=== PATIENT | male | born 1945 | race Caucasian/White ===

== ENCOUNTER 2016-05-24 17:12 | Emergency (ER) | payer MEDICARE, MEDICAID ==
[~2016-05-24] VITALS: Ht 193 cm; Wt 131.5 kg
[~2016-05-24 17:12] MED LIST: ACET325T38 PO; ALDACTONE25 MG PO; ALPR1T PO; ALPR1TAB7 PO; AMLO10TA2 PO; APIX5TAB PO; ASP81CT PO; ASPI-875 PO; ATOR40TA70 PO; ATR20T PO; BUSP15TA60 PO; CHOL20003 PO; CITA10TA PO; CITA10TA7 PO; CLOP75TA PO; CLOP75TA28 PO; CTLP20T PO; DOXY100C2 PO; ENLP2.5T PO; FURO20TA4 PO; GABA800T2 PO; GBPN300C PO; HYDR-2890 PO; HYDR-3812 PO; HYDR1TAB86 PO; INSU100I14 SC; INSU100I14 SQ; INSU100I16 SQ; INSU100I29 SC; LEVE1U SQ; LEVO25TA5 PO; LEVO750T39 PO; LINA5TAB PO; LISI2.5T PO; LVT.025T PO; MECL-106 PO; MELA1TAB10 PO; METF-380 PO; METO-333 PO; NTR.4SL SL; RANI150T11 PO; RIVA1PAT TD; RIVA1PAT12 TD; SERT25TA PO; SULF1TAB38 PO; TERB250T10 PO; cozaar; lasix
[2016-05-24] MEDS ORDERED: inSUlin (REGULAR) HUMAN 1 UNIT/0.01 ML (CHARGE PER UNIT) IV ONE (17:30)
[2016-05-24] MEDS ORDERED: NS IV 500 ML 500 ML IV SCH (17:30)
--- NOTE | 2016-05-24 17:34 | ED General ---
General Stated Complaint: ELEV GLUCOSE Source of Information: Patient Exam Limitations: No Limitations History of Present Illness Time Seen by Provider: 17:31 Initial Comments To ER per EMS from [facility]. Reports of hyperglycemia with blood sugar of around 500 today at the assisted. No recent illness. Primary care is Dr. Pham in [place]. History of left-sided hemiplegia following stroke, stage III chronic kidney disease, ischemic cardiomyopathy with remote CABG, COPD, DO NOT RESUSCITATE status. Patient denies any complaints stating that he feels normal though he has had nausea and diarrhea for the past day. He is on Levemir, tardjenta, novolog sliding scale Timing/Duration: 4-6 Hours Severity: Mild Associated Systoms: Denies Symptoms Nausea/Vomiting Allergies and Home Medications Allergies Coded Allergies: morphine (Verified Adverse Reaction, Intermediate, psychosis, 09/12/12) Home Medications Acetaminophen 325 Mg Tablet 650 MG PO Q4H PRN PRN HEADACHE (Reported) Alprazolam 1 Mg Tablet 1 MG PO TID (Reported) Apixaban 5 Mg Tablet 30Days 5 MG PO BID Prescribed by: OLENA OLIVEIRA on 04/29/15 1315 Aspirin 81 Mg Tablet.dr 81 MG PO DAILY (Reported) Atorvastatin Calcium 40 Mg Tablet 40 MG PO HS (Reported) Buspirone HCl 15 Mg Tablet 15 MG PO HS (Reported) Cholecalciferol (Vitamin D3) 2,000 Unit Capsule 2,000 UNIT PO DAILY (Reported) Citalopram Hydrobromide 10 Mg Tablet 15 MG PO DAILY (Reported) TAKES 1 & 1/2 (10MG) TABLET Gabapentin 800 Mg Tablet 800 MG PO TID (Reported) Hydrocodone/Acetaminophen 1 Each Tablet 1 TAB PO HS (Reported) Hydrocodone/Acetaminophen 1 Each Tablet 1 TAB PO Q8H PRN PRN PAIN (Reported) Insulin Aspart 300 Units/3 Ml Solution SC QID (Reported) INJECT PER SLIDING SCALE: 60 -150 = 0 UNITS 151-200 = 4 UNITS 201-250 = 6 UNITS 251-300 = 8 UNITS 301-350 =10 UNITS 351-400 =12 UNITS >400 CALL Levofloxacin 750 Mg Tablet 7Days 750 MG PO DAILY@1100 Prescribed by: OLENA OLIVEIRA on 04/29/15 1315 Levothyroxine Sodium 25 Mcg Tablet 25 MCG PO DAILY (Reported) Linagliptin 5 Mg Tablet 5 MG PO HS (Reported) Melatonin/Pyridoxine 1 Each Tablet 3 MG PO HS (Reported) Metoprolol Tartrate 25 Mg Tablet 30Days 25 MG PO BID Prescribed by: OLENA OLIVEIRA on 04/29/15 1315 Ranitidine HCl 150 Mg Tablet 150 MG PO BID (Reported) Rivastigmine 1 Each Patch.td24 9.5 MG TD DAILY (Reported) Constitutional: see HPI EENTM: see HPI Respiratory: no symptoms reported Cardiovascular: no symptoms reported Gastrointestinal: No abdominal pain, diarrhea nausea Genitourinary: no symptoms reported Musculoskeletal: no symptoms reported Skin: no symptoms reported Psychiatric/Neurological: No Symptoms Reported Hematologic/Lymphatic: No Symptoms Reported Past Dnmeboe-Kceyuc-Okeddp Hx Patient Social History Former Smoker/When Quit: Mar 20, 2012 Immunizations Up To Date Date of Pneumonia Vaccine: Mar 15, 2012 Date of Influenza Vaccine: Mar 09, 2015 Surgeries HX Surgeries: Yes ( carotid endartetectomy) Respiratory Hx Respiratory Disorders: Yes Respiratory Disorders: Pneumonia, Sleep Apnea Cardiovascular Hx Cardiac Disorders: Yes Neurological Hx Neurological Disorders: Yes Reproductive System Hx Reproductive Disorders: No (unknown) Sexually Transmitted Disease: No (unknown) HIV/AIDS: No Genitourinary Hx Genitourinary Disorders: Yes Genitourinary Disorders: Kidney Infection, Kidney Stones, Renal Failure Gastrointestinal Hx Gastrointestinal Disorders: Yes Gastrointestinal Disorders: Gastroesophageal Reflux, Gastrointestinal Bleed, Hiatal Hernia, Ulcer Musculoskeletal Hx Musculoskeletal Disorders: Yes (CHRONIC LEFT SHOULDER PAIN) Musculoskeletal Disorders: Arthritis Endocrine Hx Endocrine Disorders: Yes Endocrine Disorders: Diabetes, Insulin dep, Hypothyroidsim HEENT HX ENT Disorders: No Cancer Hx Cancer: No Psychosocial Hx Psychiatric Problems: Yes Behavioral Health Disorders: Sleep Difficulties, Anxiety, Depression Integumentary HX Skin/Integumentary Disorder: Yes (CELLULITIS LEFT FOOT) Blood Transfusions Hx Blood Disorders: No Adverse Reaction to a Blood Tr: No Family Medical History Significant Family History: Heart Disease, Diabetes Family Medial History: Cardiovascular disease 19 MOTHER Completed stroke 19 FATHER 19 MOTHER FH: emphysema Physical Exam Vital Signs Vital Sign - Last 12Hours 05/24/16 17:12 Temp 98.2 Pulse 82 Resp 18 B/P 147/89 Capillary Refill : General Appearance: No Apparent Distress WD/WN Eyes: Bilateral Eye Normal Inspection, Bilateral Eye PERRL HEENT: PERRL/EOMI TMs Normal Neck: Full Range of Motion Supple Respiratory: Lungs Clear Normal Breath Sounds No Accessory Muscle Use No Respiratory Distress Cardiovascular: Regular Rate, Rhythm Normal Peripheral Pulses Gastrointestinal: Non Tender Soft Extremity: Normal Capillary Refill No Calf Tenderness Neurologic/Psychiatric: Alert Oriented x3 Other (left-sided hemiparesis) Skin: Normal Color Warm/Dry Progress/Results/Core Measures Results/Orders Lab Results Laboratory Tests Test 05/24/16 17:23 05/24/16 17:29 05/24/16 18:29 05/24/16 18:38 Range/Units Alanine Aminotransferase (ALT/SGPT) 40 0-55 U/L Albumin 3.5 3.2-4.5 G/DL Alkaline Phosphatase 126 40-136 U/L Anion Gap 8 5-14 MMOL/L Aspartate Amino Transf (AST/SGOT) 24 5-34 U/L BUN/Creatinine Ratio 17 Basophils # (Auto) 0.0 0.0-0.1 10^3/uL Basophils (%) (Auto) 0 0-10 % Blood Urea Nitrogen 32 H 7-18 MG/DL Calcium Level 8.3 L 8.5-10.1 MG/DL Carbon Dioxide Level 25 21-32 MMOL/L Chloride Level 102 98-107 MMOL/L Creatinine 1.91 H 0.60-1.30 MG/DL Eosinophils # (Auto) 0.1 0.0-0.3 10^3/uL Eosinophils (%) (Auto) 2 0-10 % Estimat Glomerular Filtration Rate 35 Glucose Level 509 *H 70-105 MG/DL Hematocrit 43 40-54 % Hemoglobin 14.4 13.3-17.7 G/DL Lymphocytes # (Auto) 3.6 1.0-4.0 X 10^3 Lymphocytes (%) (Auto) 41 12-44 % Mean Corpuscular Hemoglobin 30 25-34 PG Mean Corpuscular Hemoglobin Concent 33 32-36 G/DL Mean Corpuscular Volume 90 80-99 FL Mean Platelet Volume 11.0 H 7.4-10.4 FL Monocytes # (Auto) 0.9 0.0-1.0 X 10^3 Monocytes (%) (Auto) 10 0-12 % Neutrophils # (Auto) 4.2 1.8-7.8 X 10^3 Neutrophils (%) (Auto) 47 42-75 % Platelet Count 193 130-400 10^3/uL Potassium Level 5.0 3.6-5.0 MMOL/L Red Blood Count 4.78 4.35-5.85 10^6/uL Red Cell Distribution Width 13.4 10.0-14.5 % Sodium Level 135 135-145 MMOL/L Total Bilirubin 0.3 0.1-1.0 MG/DL Total Protein 7.0 6.4-8.2 G/DL White Blood Count 8.9 4.3-11.0 10^3/uL Glucometer 414 *H 353 H 70-110 MG/DL Urine Bacteria NEGATIVE /HPF Urine Bilirubin NEGATIVE NEGATIVE Urine Casts NONE /LPF Urine Clarity SLIGHTLY CLOUDY Urine Color YELLOW Urine Crystals NONE /LPF Urine Culture Indicated NO Urine Glucose (UA) 4+ H NEGATIVE Urine Ketones NEGATIVE NEGATIVE Urine Leukocyte Esterase NEGATIVE NEGATIVE Urine Mucus NEGATIVE /LPF Urine Nitrite NEGATIVE NEGATIVE Urine Protein 1+ H NEGATIVE Urine RBC NONE /HPF Urine RBC (Auto) NEGATIVE NEGATIVE Urine Specific [place] 1.020 1.016-1.022 Urine Urobilinogen NORMAL NORMAL MG/DL Urine WBC RARE /HPF Urine pH 6 5-9 My Orders Orders-RANDEE EVANS APRN Cbc With Automated Diff (05/24/16 17:30) Comprehensive Metabolic Panel (05/24/16 17:30) Ua Culture If Indicated (05/24/16 17:30) Chest 1 View, Ap/Pa Only (05/24/16 17:30) Saline Lock/Iv-Start (05/24/16 17:30) Accucheck Stat ONCE (05/24/16 17:30) Accucheck Stat ONCE (05/24/16 17:30) Ns Iv 500 Ml (Sodium Chloride 0.9%) (05/24/16 17:30) Insulin (Regular) Human (Humulin R (Per (05/24/16 17:30) Furosemide Injection (Lasix Injection) (05/24/16 18:30) Insulin (Regular) Human (Humulin R (Per (05/24/16 19:00) Thyroid Stimulating Hormone (05/24/16 19:01) Ekg Tracing (05/24/16 19:01) Ct Head Wo (05/24/16 19:01) Hemoglobin A1c (05/24/16 19:09) Medications Given in ED Current Medications Medications Dose Ordered Sig/Martita Route Start Time Stop Time Status Last Admin Dose Admin Furosemide 40 mg ONCE ONCE IVP 05/24/16 18:30 05/24/16 18:31 DC 05/24/16 18:35 40 MG Insulin Human Regular 6 unit ONCE ONCE SC 05/24/16 19:00 05/24/16 19:01 DC 05/24/16 18:58 6 UNIT Insulin Human Regular 8 unit ONCE ONCE IV 05/24/16 17:30 05/24/16 17:31 DC 05/24/16 17:42 8 UNIT Vital Signs/I&O Vital Sign - Last 12Hours 05/24/16 17:12 Temp 98.2 Pulse 82 Resp 18 B/P 147/89 Diagnostic Imaging Diagonstic Imaging: Xray Plain Films/CT/US/NM/MRI: chest Comments NAME: RC MURO [facility] REC#: [id number] PT STATUS: REG ER : 1945 PHYSICIAN: RANDEE EVANS APRN ADMIT DATE: 05/24/16/ER Signed Date of Exam:05/24/16 CHEST 1 VIEW, AP/PA ONLY EXAMINATION: Portable chest compared to prior study from April 28, 2015 INDICATION: Elevated blood sugar. FINDINGS: When compared to the prior examination, there has not been evidence of interval change. The patient is status post previous sternotomy and bypass grafting. Enlargement of the cardiac silhouette is present. There has been a slight interval increase in prominence of pulmonary interstitial markings when compared to the previous exam. There is no alveolar consolidation. There is no effusion. There is no pneumothorax. IMPRESSION: 1. Enlarged cardiac silhouette with slight interval increase in prominence of the pulmonary interstitial markings which may reflect some mild interstitial edema. Dictated by: Dictated on workstation # [id number] Dict: 05/24/16 1800 Trans: 05/24/161811 GURVINDER [id number] Interpreted by: DYANA MESSINA MD Electronically signed by: DYANA MESSINA MD 05/24/161813 Departure Communication Progress Notes [facility] call to inform that patient was supposed to go to [facility] for SBH screening as he has reported suicidal comments and wanting to end his life. I spoke with [facility] at [facility] and they report that patient would still need screening to see if he is appropriate for placement in the SBH unit. However before doing that I discussed this with the patient. He is alert and oriented person place and time. He states that he has been depressed lately secondary to his living in [place] for the past 3 months. He denies any suicidal comments or thoughts of self-harm or dying. He does not want to go to [facility] behavioral health unit at [place]. 1919- I spoke with Tiki Paredes from [facility] unit. They do not have any bed availability for the patient stella and will have the patient screened at the assisted within the next few days Impression Impression: Primary Impression: Hyperglycemia Additional Impression: Chronic kidney disease Qualified Code: N18.3 - Chronic kidney disease, stage 3 (moderate) Disposition: 03 XFER SNF Condition: Improved Decision to Admit Reason: Admit from ER (General) Departure-Patient Inst. Decision time for Depature: 18:11 Referrals: LIU PHAM MD (PCP/Family) Primary Care Physician Patient Instructions: Diabetes Type 2 (DC) Add. Discharge Instructions: 1. In regards to his behaviors you may call [facility] to have them come to the assisted to do a screening to determine whether or not inpatient placement at [facility] at [place] would be helpful 2. Recheck his blood sugar at 9 p.m. stella and give Novolog insulin according to his sliding scale RANDEE EVANS APRN May 24, 2016 17:34
[2016-05-24 17:36] LABS: BASOPHILS % (AUTO) 0 % (0-10); EOSINOPHILS # (AUTO) 0.1 10^3/uL (0.0-0.3); EOSINOPHILS % (AUTO) 2 % (0-10); LYMPHOCYTES # (AUTO) 3.6 X 10^3 (1.0-4.0); LYMPHOCYTES % (AUTO) 41 % (12-44); MEAN CORPUSCULAR HEMOGLOBIN 30 PG (25-34); MEAN CORPUSCULAR HGB CONC 33 G/DL (32-36); MEAN CORPUSCULAR VOLUME 90 FL (80-99); MONOCYTES # (AUTO) 0.9 X 10^3 (0.0-1.0); MONOCYTES % (AUTO) 10 % (0-12); NEUTROPHILS # (AUTO) 4.2 X 10^3 (1.8-7.8); NEUTROPHILS % (AUTO) 47 % (42-75); PLATELET COUNT 193 10^3/uL (130-400); RED BLOOD COUNT 4.78 10^6/uL (4.35-5.85); RED CELL DISTRIBUTION WIDTH 13.4 % (10.0-14.5); WHITE BLOOD COUNT 8.9 10^3/uL (4.3-11.0)
[2016-05-24 17:49] LABS: ALBUMIN 3.5 G/DL (3.2-4.5); BILIRUBIN,TOTAL 0.3 MG/DL (0.1-1.0); CALCIUM 8.3 MG/DL (8.5-10.1); CREATININE SERUM 1.91 MG/DL (0.60-1.30)
--- NOTE | 2016-05-24 18:12 | Diagnostic Imaging Report ---
EXAMINATION: Portable chest compared to prior study from April 28, 2015 INDICATION: Elevated blood sugar. FINDINGS: When compared to the prior examination, there has not been evidence of interval change. The patient is status post previous sternotomy and bypass grafting. Enlargement of the cardiac silhouette is present. There has been a slight interval increase in prominence of pulmonary interstitial markings when compared to the previous exam. There is no alveolar consolidation. There is no effusion. There is no pneumothorax. IMPRESSION: 1. Enlarged cardiac silhouette with slight interval increase in prominence of the pulmonary interstitial markings which may reflect some mild interstitial edema. Dictated by: Dictated on workstation # [id number]
[2016-05-24] MEDS ORDERED: FUROSEMIDE 40 MG/4 ML INJ (LASIX) IVP ONE (18:30)
[2016-05-24 18:37] LABS: BILIRUBIN,URINE NEGATIVE (NEGATIVE); KETONES,URINE NEGATIVE (NEGATIVE); LEUKOCYTE ESTERASE ,URINE NEGATIVE (NEGATIVE); NITRITE,URINE NEGATIVE (NEGATIVE); PH,URINE 6 (5-9); PROTEIN,URINE 1+ (NEGATIVE); UROBILINOGEN,URINE NORMAL (NORMAL)
[2016-05-24 18:52] LABS: WBC,URINE RARE /HPF
[2016-05-24] MEDS ORDERED: inSUlin (REGULAR) HUMAN 1 UNIT/0.01 ML (CHARGE PER UNIT) SC ONE (19:00)
--- NOTE | 2016-05-24 19:30 | Diagnostic Imaging Report ---
PROCEDURE: CT head without contrast. TECHNIQUE: Multiple contiguous axial images were obtained through the brain without the use of intravenous contrast. INDICATION: Stroke like symptoms. Comparison is made with the prior study from September 12, 2012. FINDINGS: Patient's previous encephalomalacia within the right MCA territory demonstrates no evidence of appreciable interval change. There is associated volume loss and ex vacuo dilatation of the right lateral ventricle. No new region of abnormal intracranial hypodensity is evident. There is no hemorrhage. There is no evidence of mass effect. Basilar cisterns appear patent. The posterior fossa is unremarkable. The mastoids appear clear. The paranasal sinuses appear clear. Orbital contents unremarkable. No calvarial abnormality is demonstrated. IMPRESSION: 1. Previous large right MCA territory infarct with resultant encephalomalacia and volume loss. This is not appreciably changed from the previous exam. No new regions of abnormal loss of benito-white differentiation or hypodensity are demonstrated to suggest acute ischemia by CT. If continued clinical concern, further evaluation could be performed with MRI. 2. No evidence of intracranial hemorrhage, mass effect or hydrocephalus. Dictated by: Dictated on workstation # [id number]
[2016-05-24 20:33] VITALS: BP 129/83
== END 2016-05-24 20:33 ==
LOC: EDUNIT# 17:12 → ER 17:14
DX: E11.65 Type 2 diabetes mellitus with hyperglycemia (principal); I12.9 Hypertensive chronic kidney disease with stage 1 through stage 4 chronic kidney disease, or unspecified chronic kidney disease; N18.3 Chronic kidney disease, stage 3 (moderate); I25.5 Ischemic cardiomyopathy; J44.9 Chronic obstructive pulmonary disease, unspecified; I69.954 Hemiplegia and hemiparesis following unspecified cerebrovascular disease affecting left non-dominant side; F32.9 Major depressive disorder, single episode, unspecified; Z79.84 Long term (current) use of oral hypoglycemic drugs; Z79.4 Long term (current) use of insulin; Z79.899 Other long term (current) drug therapy; Z95.1 Presence of aortocoronary bypass graft
CPT/HCPCS: 36415; 70450; 71010; 80053; 81000; 82962; 83036; 84443; 85025; 96361; 96374; 96375

== ENCOUNTER → 2017-03-14 | Outpatient (CLI) | payer MEDICARE, MEDICAID | LOC: LABNPT 10:04 | PROVIDERS: ATTEND Family Medicine | DX: E03.9 Hypothyroidism, unspecified (principal) | CPT/HCPCS: 84443 ==

== ENCOUNTER → 2018-02-13 | Outpatient (CLI) | payer MEDICARE, MEDICAID ==
[~2018-02-13] MED LIST changes: +ACHD5005 PO; -AMLO10TA2 PO; +AMLO10TA6 PO; -HYDR-3812 PO; -TERB250T10 PO; +TERB250T16 PO
== END ==
LOC: WOUNDCARE 08:14
PROVIDERS: ATTEND Nurse Practitioner
DX: I87.2 Venous insufficiency (chronic) (peripheral) (principal); E11.622 Type 2 diabetes mellitus with other skin ulcer; L97.322 Non-pressure chronic ulcer of left ankle with fat layer exposed; L97.222 Non-pressure chronic ulcer of left calf with fat layer exposed
CPT/HCPCS: 99214

== ENCOUNTER → 2018-02-20 | Outpatient (CLI) | payer MEDICARE, MEDICAID | LOC: WOUNDCARE 09:02 | PROVIDERS: ATTEND Nurse Practitioner | DX: I87.2 Venous insufficiency (chronic) (peripheral) (principal); E11.622 Type 2 diabetes mellitus with other skin ulcer; L97.322 Non-pressure chronic ulcer of left ankle with fat layer exposed; L97.222 Non-pressure chronic ulcer of left calf with fat layer exposed; I70.242 Atherosclerosis of native arteries of left leg with ulceration of calf | CPT/HCPCS: 99213 ==

== ENCOUNTER → 2018-02-20 | Outpatient (CLI) | payer MEDICARE, MEDICAID | LOC: LAB 09:50 | PROVIDERS: ATTEND Nurse Practitioner | DX: I87.2 Venous insufficiency (chronic) (peripheral) (principal); E11.622 Type 2 diabetes mellitus with other skin ulcer; L97.322 Non-pressure chronic ulcer of left ankle with fat layer exposed; L97.222 Non-pressure chronic ulcer of left calf with fat layer exposed; I70.242 Atherosclerosis of native arteries of left leg with ulceration of calf ==

== ENCOUNTER → 2018-02-27 | Outpatient (CLI) | payer MEDICARE, MEDICAID ==
[~2018-02-27] MED LIST changes: +ASPI-983 PO; +ATOR20TA49 PO; +BUSP5TAB59 PO; +DIVA125C10 PO; +ECON15CR TP; +GABA-488 PO; +GUAI100L36 PO; +IBUP-1780 PO; +INSU100V16 SQ; +INSU100V5 SQ; +LACT20SO2 PO; +LEVO150T6 PO; +LOPE-134 PO; +LORA10TA7 PO; +MELA3TAB PO; +MULT-35 PO; +VNL75T PO
== END ==
LOC: WOUNDCARE 09:15
PROVIDERS: ATTEND Surgery
DX: E11.622 Type 2 diabetes mellitus with other skin ulcer (principal); I70.243 Atherosclerosis of native arteries of left leg with ulceration of ankle; L97.322 Non-pressure chronic ulcer of left ankle with fat layer exposed; L97.222 Non-pressure chronic ulcer of left calf with fat layer exposed; I87.2 Venous insufficiency (chronic) (peripheral)
CPT/HCPCS: 99213

== ENCOUNTER 2018-03-05 07:31 | Day surgery (SDC) | payer MEDICARE, MEDICAID ==
[~2018-03-05] VITALS: Ht 193 cm; Wt 136.1 kg
[2018-03-05] VITALS (16 sets, daily range): BP systolic 111–185; BP diastolic 59–109
[~2018-03-05 07:31] MED LIST changes: -ASPI-983 PO; -ATOR20TA49 PO; -BUSP5TAB59 PO; -DIVA125C10 PO; -ECON15CR TP; -GABA-488 PO; -GUAI100L36 PO; -IBUP-1780 PO; -INSU100V16 SQ; -INSU100V5 SQ; -LACT20SO2 PO; -LEVO150T6 PO; -LOPE-134 PO; -LORA10TA7 PO; -MELA3TAB PO; -MULT-35 PO; -VNL75T PO
--- OUTSIDE RECORDS SUMMARY | 2018-03-05 07:34 | XMS REPORT ---
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 208064619 Problem Vascular dementia, uncomplicated 290.40 Active 99624485 Problem Unspecified episodic mood disorder 296.90 Active 207659159 Problem Vascular dementia with behavioral disturbance F01.51 Active 409980945184917 Problem Major depressive disorder, recurrent, unspecified F33.9 Active 90039197 Problem Diabetes mellitus without mention of complication, type II or unspecified type, not stated as uncontrolled 250.00 Active 803631504 Problem Other and unspecified hyperlipidemia 272.4 Active 43369806 Problem Unspecified mood [affective] disorder F39 Active 28675901 Problem 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 Active 04581961 Problem Diarrhea 787.91 Active 60503103 Problem Nausea with vomiting 787.01 Active 68375488 Problem Unspecified disorder of skin and subcutaneous tissue 709.9 Active 72794095 Problem Unspecified local infection of skin and subcutaneous tissue 686.9 Active 622498987 Problem Pain in joint, lower leg 719.46 Active 771979635 Problem Unspecified hypotension 458.9 Active 92525944 Problem Pain in joint, shoulder region 719.41 Active 193599703 Problem 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 Active 920662263 ALLERGIES No Information ENCOUNTERS Encounter Location Date Diagnosis [facility] [id number] [address] Feb, [facility] [address] [facility] [id number] [address] Feb, [facility] [address] [address] [address] Dec, Major depressive disorder, recurrent, unspecified F33.9 [facility] [id number] [place] [address] 489665- 8742 Oct, Unspecified mood [affective] disorder F39 [facility] [id number] [place] [address] 646451- 8391 September, Major depressive disorder, recurrent, unspecified F33.9 [facility] [place] [id number] [place] [address] [id number] May, [facility] [id number] [place] [address] 42998- 9870 May, Major depressive disorder, recurrent, unspecified F33.9 [facility] [id number] [place] [address] 377442- 7044 Feb, Major depressive disorder, recurrent, unspecified F33.9 [facility] [id number] [place] [address] 85966- 3323 Jan, Major depressive disorder, recurrent, unspecified F33.9 [facility] [id number] [place] [address] 58340- 7605 Jan, Major depressive disorder, recurrent, unspecified F33.9 [facility] [id number] [place] [address] 07730- 8966 Jan, Major depressive disorder, recurrent, unspecified F33.9 [facility] [address] [address] 120[address] Dec, Major depressive disorder, recurrent, unspecified F33.9 [facility] [id number] [place] [address] 825666- 1065 Nov, Major depressive disorder, recurrent, unspecified F33.9 [facility] [address] [address] [address] Nov, 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 [facility] [id number] [address] 9206 08 Oct, 2016 Unspecified mood [affective] disorder F39 ; Major depressive disorder, recurrent, unspecified F33.9 and Vascular dementia with behavioral disturbance F01.51 [facility] [id number] [address] 480[address] 24 May, 2016 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 [facility] [id number] [place] [address] 02606- 1190 14 Aug, 2014 [facility] [id number] [place] [address] 05266- 0817 13 Aug, 2014 [facility] [id number] [place] [address] 32962- 1504 15 Feb, 2013 [facility] [id number] [place] [address] 79207- 4132 Feb, [facility] [id number] [place] [address] 68806- 9316 Feb, [facility] [id number] [place] [address] 34896- 8412 Feb, [facility] [id number] [place] [address] 91451- 9165 23 Jan, 2012 [facility] [address] [address]- 5347 20 Jan, 2012 [facility] [address] [address]- 7557 18 Sep, 2012 [facility] [address] [address]- 4945 10 Sep, 2012 [facility] [id number] [place] [address] 80345- 9114 09 Sep, 2012 [facility] [address] [address]- 2837 06 Sep, 2012 [facility] [id number] [place] [address], [place] [address]- 78[address] 06 Jan, 2013 [facility] [address] [id number] [place] [address]- 8839 05 Jan, 2013 [facility] [place] [facility] [address] [id number] [place] [address]- 0120 Jan, [facility] [place] [facility] [address] [id number] [place] [address]- 3844 Dec, [facility] [place] [facility] [address] [id number] [place] [address]- 2178 Nov, [facility] [place] [facility] [address] [id number] [place] [address]- 5690 Nov, [facility] [place] [facility] [address] [id number] [place] [address]- 9302 Nov, [facility] [address] [id number] [place] [address]- 1866 Nov, [facility] [place] [facility] [address] [id number] [place] [address]- 2035 Nov, [facility] [place] [facility] [address] [id number] [place] [address]- 7435 Oct, [facility] [place] [facility] [address] [id number] [place] [address]- 2283 Oct, [facility] [place] [facility] [address] [id number] [place] [address]- 2939 Oct, [facility] [place] [facility] [address] [id number] [place] [address]- 0955 Oct, [facility] [place] [facility] [address] [id number] [place] [address]- 5298 Oct, [facility] [place] [facility] [address] [id number] [place] [address]- 1421 September, [facility] [place] [facility] [address] [id number] [place] [address]- 6975 September, [facility] [place] [facility] [address] [id number] [place] [address]- 3194 30 Aug, 2012 [facility] [address] [id number] [place] [address]- 0192 15 Aug, 2012 [facility] [place] [facility] [address] [id number] [place] [address]- 6759 02 Aug, 2012 [facility] [address] [id number] [place] [address]- 7648 28 Jul, 2012 [facility] [address] [id number] [place] [address]- 1650 25 Jul, 2012 [facility] [place] [facility] [address] [id number] [place] [address]- 3077 22 Jul, 2012 [facility] [address] [id number] [place] [address]- 4728 Jul, [facility] [address] [id number] [place] [address]- 7273 20 Jul, 2012 [facility] [address] [id number] [place] [address]- 4773 19 Jul, 2012 [facility] [address] [id number] [place] [address]- 8785 19 Jul, 2012 [facility] [address] [id number] [place] [address]- 2706 18 Jul, 2012 [facility] [place] [facility] [address] [id number] [place] [address]- 5917 14 Jul, 2012 [facility] [place] [facility] [address] [id number] [place] [address]- 2044 18 Jun, 2012 [facility] [place] [facility] [address] [id number] [place] [address]- 0474 08 Jun, 2012 [facility] [place] [facility] [address] [id number] [place] [address]- 7377 06 Jun, 2012 [facility] [place] [facility] [address] [id number] [place] [address]- 9173 31 May, 2012 [facility] [address] [id number] [place] [address]- 8585 30 May, 2012 [facility] [place] [facility] [address] [id number] [place] [address]- 6546 29 May, 2012 [facility] [address] [id number] [place] [address]- 1808 28 May, 2012 [facility] [place] [facility] [address] [id number] [place] [address]- 1183 31 Apr, 2012 [facility] [address] [id number] [place] [address]- 9158 31 Apr, 2012 [facility] [place] [facility] [address] [id number] [place] [address]- 9423 18 Apr, 2012 [facility] [address] [id number] [place] [address]- 0211 18 Apr, 2012 [facility] [place] [facility] [address] [id number] [place] [address]- 5832 17 Apr, 2012 [facility] [address] [id number] [place] [address]- 6611 17 Apr, 2012 [facility] [place] [facility] [address] [id number] [place] [address]- 9669 14 Apr, 2012 [facility] [place] [facility] [address] [id number] [place] [address]- 4108 14 Apr, 2012 [facility] [place] [facility] [address] [id number] [place] [address]- 2207 14 Apr, 2012 [facility] [place] [facility] [address] [id number] [place] [address]- 9655 14 Apr, 2012 [facility] [place] [facility] [address] [id number] [place] [address]- 3967 10 Apr, 2012 [facility] [place] [facility] [address] [id number] [place] [address]- 5785 10 Apr, 2012 [facility] [place] [facility] [address] [id number] [place] [address]- 7046 Apr, [facility] [place] [facility] [address] [id number] [place] [address]- 5396 Apr, [facility] [place] [facility] [address] [id number] [place] [address]- 2186 Apr, [facility] [place] [facility] [address] [id number] [place] [address]- 4226 Apr, [facility] [place] [facility] [address] [id number] [place] [address]- 0700 Apr, [facility] [place] [facility] [address] [id number] [place] [address]- 4202 Apr, [facility] [place] [facility] [address] [id number] [place] [address]- 1015 Apr, [facility] [place] [facility] [address] [id number] [place] [address]- 6931 Mar, [facility] [place] [facility] [address] [id number] [place] [address]- 0527 Mar, [facility] [place] [facility] [address] [id number] [place] [address]- 2962 Mar, [facility] [place] [facility] [address] [id number] [place] [address]- 8739 Mar, [facility] [place] [facility] [address] [id number] [place] [address]- 0982 Mar, [facility] [place] [facility] [address] [id number] [place] [address]- 1611 Mar, [facility] [place] [facility] [address] [id number] [place] [address]- 0419 Mar, [facility] [place] [facility] [address] [id number] [place] [address]- 1418 Mar, [facility] [place] [facility] [address] [id number] [place] [address]- 9199 Mar, [facility] [place] [facility] [address] [id number] [place] [address]- 9558 Mar, [facility] [place] [facility] [address] [id number] [place] [address]- 5296 Mar, [facility] [place] [facility] [address] [id number] [place] [address]- 5848 Mar, [facility] [place] [facility] [address] [id number] [place] [address]- 3685 Mar, [facility] [place] [facility] [address] [id number] [place] [address]- 7595 Feb, [facility] [place] [facility] [address] [id number] [place] [address]- 6304 Feb, [facility] [place] [facility] [address] [id number] [place] [address]- 8366 Feb, [facility] [place] [facility] [address] [id number] [place] [address]- 9753 Feb, [facility] [place] [facility] [address] [id number] [place] [address]- 2366 Feb, [facility] [place] [facility] [address] [facility] [id number] [place] [address]- 9636 Feb, [facility] [place] [facility] [address] [id number] [place] [address]- 2130 Feb, [facility] [place] [facility] [address] [id number] [place] [address]- 9054 Feb, [facility] [place] [facility] [address] [id number] [place] [address]- 4668 Feb, [facility] [place] [facility] [address] [id number] [place] [address]- 3873 Feb, [facility] [place] [facility] [address] [facility] [id number] [place] [address]- 5651 Jan, [facility] [place] [facility] [address] [id number] [place] [address]- 4435 Dec, [facility] [place] [facility] [address] [id number] [place] [address]- 3196 Dec, [facility] [place] [facility] [address] [id number] [place] [address]- 3722 Nov, [facility] [place] [facility] [address] [id number] [place] [address]- 3773 Nov, [facility] [place] [facility] [address] [id number] [place] [address]- 1782 Nov, [facility] [place] [facility] [address] [id number] [place] [address]- 3960 Nov, [facility] [place] [facility] [address] [id number] [place] [address]- 0968 Oct, [facility] [place] [facility] [address] [id number] [place] [address]- 9850 Oct, [facility] [place] [facility] [address] [id number] [place] [address]- 4505 Oct, [facility] [place] [facility] [address] [id number] [place] [address]- 7190 Oct, [facility] [place] [facility] [address] [id number] [place] [address]- 4547 September, [facility] [place] [facility] [address] [id number] [place] [address]- 5680 September, [facility] [place] [facility] [address] [id number] [place] [address]- 6933 Aug, [facility] [place] [facility] [address] [id number] [place] [address]- 4970 Aug, [facility] [place] [facility] [address] [id number] [place] [address]- 4482 Aug, [facility] [place] [facility] [address] [id number] [place] [address]- 1040 Jul, [facility] [place] [facility] [address] [address]- 3716 Jul, [facility] [address] [facility] [id number] [place] [address]- 7316 Jun, [facility] [address] [facility] [id number] [place] [address]- 3796 Jun, [facility] [address] [address]- 2746 Jun, [facility] [address] [facility] [id number] [place] [address]- 4328 Apr, [facility] [address] [address]- 5576 Apr, [facility] [address] [address]- 5600 Mar, [facility] [address] [address]- 6538 Mar, [facility] [address] [address]- 7568 Feb, [facility] [address] [address]- 0256 Dec, [facility] [id number] [address]- 6918 Nov, IMMUNIZATIONS No Known Immunizations SOCIAL HISTORY Never Assessed REASON FOR VISIT [facility] PLAN OF CARE Activity Details Follow Up prn Reason: VITAL SIGNS MEDICATIONS Medication Instructions Dosage Frequency Start Date End Date Duration Status Cane Apr, Active NovoLog Flexpen 100 unit/mL inject 10 Units by Subcutaneous route before meals 3 times per day Nov, Active Rivastigmine 9.5 MG/24HR 1 Patch 24 hr by Transdermal route 1 time per day Nov, Active NovoLog 100 UNIT/ML Active immodium Active Levemir 100 UNIT/ML Subcutaneous 2 times a day 23 units 12h Active Depakote 125 MG Orally once a day 1 cap 24h September, Active Ranitidine 150mg Oral Once a day 24h Active Claritin 10 MG Orally Once a day 24h Active Hydrocodone-Acetaminophen 5-325 MG Orally every 8 hours 1 capsule as needed 8h Active Eliquis 5 mg Orally 2 times a day 12h Active BuSpar 15 mg Orally Twice a day 1 tablet 12h Apr, Active Melatonin 3 MG Active BuSpar 5 mg orally BID 1 tablet 12h Active Multivitamin Active Neurontin 300 MG Orally Three times a day 2 capsules 8h 04 Oct, 2011 Active Lactulose 20 GM/30ML Orally q 12 hours prn 15 ml Active Synthroid 25 mcg 1 tablet by Oral route 1 time per day Jul, Active Cholecalciferol 2000 UNIT Active Levemir Flexpen 100 unit/mL (3 mL) 40 Unit by Subcutaneous route 1 time per day at bedtime Nov, Active Metoprolol Tartrate 25 MG Orally Twice a day 12h Active Effexor 75 mg Orally BID 1 tablet with food 12h 30 days Active RESULTS No Results PROCEDURES Procedure Date Ordered Result Body Site [facility] VISIT MENTAL HEALTH ESTAB PT November 10, 2017 Psych diagnostic evaluation, established patient November 10, 2017 INSTRUCTIONS MEDICATIONS ADMINISTERED No Known Medications MEDICAL (GENERAL) HISTORY Type Description Date Medical History generalized muscle weakness Medical History CKD stage 3, moderate Medical History paralytic gut Medical History dysphagia, oral Medical History HTN Medical History DM Medical History GERD Medical History unstable gait Medical History CVA Medical History vascular dementia Medical History sleep apnea Medical History ischemic cardiomyopathy Medical History acute and chronic systolic CHF Medical History COPD Surgical History triple bypass 2012
--- OUTSIDE RECORDS SUMMARY | 2018-03-05 07:34 | XMS REPORT ---
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 796426927 Problem Vascular dementia, uncomplicated 290.40 Active 28633145 Problem Unspecified episodic mood disorder 296.90 Active 716476285 Problem Vascular dementia with behavioral disturbance F01.51 Active 525034116901639 Problem Major depressive disorder, recurrent, unspecified F33.9 Active 16486318 Problem Diabetes mellitus without mention of complication, type II or unspecified type, not stated as uncontrolled 250.00 Active 336432683 Problem Other and unspecified hyperlipidemia 272.4 Active 25651116 Problem Unspecified mood [affective] disorder F39 Active 36915749 Problem 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 Active 36470689 Problem Diarrhea 787.91 Active 93598941 Problem Nausea with vomiting 787.01 Active 04555978 Problem Unspecified disorder of skin and subcutaneous tissue 709.9 Active 22372472 Problem Unspecified local infection of skin and subcutaneous tissue 686.9 Active 148909210 Problem Pain in joint, lower leg 719.46 Active 912156186 Problem Unspecified hypotension 458.9 Active 00966464 Problem Pain in joint, shoulder region 719.41 Active 507248452 Problem 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 Active 789038968 ALLERGIES Substance Reaction Event Type Date Status Morphine Unknown Drug Allergy Dec, Active Zocor 40 Mg Tablet BLOODY DIARRHEA Non Drug Allergy Dec, Active ENCOUNTERS Encounter Location Date Diagnosis [facility] [address] [id number], [place] [address] Feb, [facility] [address] [id number], [place] [address] Feb, [facility] [address] [id number] [address] Dec, Major depressive disorder, recurrent, unspecified F33.9 [facility] [address] [id number] [address] [address] Oct, Unspecified mood [affective] disorder F39 [facility] [address] [place] [address] 410680- [address] September, Major depressive disorder, recurrent, unspecified F33.9 [facility] [id number] [place] [address] [id number] May, [facility] [id number] [place] [address] 04158- 3552 May, Major depressive disorder, recurrent, unspecified F33.9 [facility] [address] [place] [address] 44416- 9304 Feb, Major depressive disorder, recurrent, unspecified F33.9 [facility] [address], [place] [address] 7[address] Jan, Major depressive disorder, recurrent, unspecified F33.9 [facility] [address] [id number], [place] [address] Jan, Major depressive disorder, recurrent, unspecified F33.9 [facility] [address], [place] [address] Jan, Major depressive disorder, recurrent, unspecified F33.9 [facility] [address] [id number] [address] Dec, Major depressive disorder, recurrent, unspecified F33.9 [facility] [address] [id number] [id number] [address] Nov, Major depressive disorder, recurrent, unspecified F33.9 [facility] [address], [place] [address] 65[address] Nov, 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 [facility] [address] [place] [address] 83735- 9458 08 Oct, 2016 Unspecified mood [affective] disorder F39 ; Major depressive disorder, recurrent, unspecified F33.9 and Vascular dementia with behavioral disturbance F01.51 [facility] [id number] [place] [address] 87978- 4969 May, 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 [facility] [id number] [place] [address] 69143- 3839 14 Aug, 2014 [facility] [id number] [place] [address] 76101- 4013 Aug, [facility] [id number] [place] [address] 71684- 6407 15 Feb, 2013 [facility] [id number] [place] [address] 50342- 9318 Feb, [facility] [id number] [place] [address] 32819- 5125 Feb, [facility] [id number] [place] [address] 36728- 9820 Feb, [facility] [address], [place] [address] 1337 23 Jan, 2013 [facility] [id number] [place] [address] 93578- 2521 20 Jan, 2012 [facility] [address] [place] [address] 79912- 7120 18 Jan, 2013 [facility] [id number] [place] [address] 53852- 7459 10 Jan, 2012 [facility] [address] [place] [address] 11639- 9552 09 Jan, 2013 [facility] [id number] [place] [address] 14363- 4159 06 Jan, 2012 [facility] [place] [facility] [address] [id number] [place] [address] 06 Jan, 2012 [facility] [place] [facility] [address] [id number] [place] [address]- 6213 05 Jan, 2013 [facility] [place] [facility] [address] [id number] [place] [address]- 1428 Jan, [facility] [place] [facility] [address] [id number] [place] [address]- 0553 Dec, [facility] [place] [facility] [address] [id number] [place] [address]- 9207 Nov, [facility] [place] [facility] [address] [id number] [place] [address]- 8463 Nov, [facility] [place] [facility] [address] [id number] [place] [address]- 9503 Nov, [facility] [place] [facility] [address] [id number] [place] [address]- 7110 Nov, [facility] [place] [facility] [address] [id number] [place] [address]- 8521 Nov, [facility] [place] [facility] [address] [id number] [place] [address]- 3799 Oct, [facility] [place] [facility] [address] [id number] [place] [address]- 7227 Oct, [facility] [place] [facility] [address] [id number] [place] [address]- 2877 Oct, [facility] [place] [facility] [address] [id number] [place] [address]- 7193 Oct, [facility] [place] [facility] [address] [id number] [place] [address]- 1462 Oct, [facility] [place] [facility] [address] [id number] [place] [address]- 3869 September, [facility] [place] [facility] [address] [id number] [place] [address]- 3981 07 Sep, [address] [facility] [address] [id number] [place] [address]- 3879 30 Aug, 2012 [facility] [address] [id number] [place] [address]- 2986 15 Aug, 2012 [facility] [address] [id number] [place] [address]- 3767 02 Aug, 2012 [facility] [address] [id number] [place] [address]- 8207 28 Jul, [address] [facility] [address] [id number] [place] [address]- 4247 25 Jul, 2012 [facility] [address] [id number] [place] [address]- [address] Jul, [facility] [address] [id number] [place] [address]- [address]32 Jul, [facility] [address] [id number] [place] [address]- [address]265 Jul, [facility] [address] [id number] [place] [address]- 7064 19 Jul, 2012 [facility] [address] [id number] [place] [address]- 9898 19 Jul, 2012 [facility] [place] [facility] [address] [id number] [place] [address]- 8993 18 Jul, 2012 [facility] [address] [id number] [place] [address]- 7116 14 Jul, 2012 [facility] [place] [facility] [address] [id number] [place] [address]- 7407 18 Jun, 2012 [facility] [place] [facility] [address] [id number] [place] [address]- 2546 08 Jun, 2012 [facility] [place] [facility] [address] [id number] [place] [address]- 0923 06 Jun, 2012 [facility] [address] [id number] [place] [address]- 3841 31 May, 2012 [facility] [place] [facility] [address] [id number] [place] [address]- 4414 30 May, 2012 [facility] [address] [facility] [id number] [place] [address]- 1538 29 May, 2012 [facility] [place] [facility] [address] [id number] [place] [address]- 2570 28 May, 2012 [facility] [address] [id number] [place] [address]- 1753 31 Apr, 2012 [facility] [place] [facility] [address] [id number] [place] 2897 31 Apr, 2012 [facility] [address] [facility] [id number] [place] [address]- 0579 18 Apr, 2012 [facility] [place] [facility] [address] [id number] [place] [address]- 4248 18 Apr, 2012 [facility] [address] [id number] [place] [address]- 2552 17 Apr, 2012 [facility] [place] [facility] [address] [facility] [id number] [place] [address]- 4562 17 Apr, 2012 [facility] [place] [facility] [address] [id number] [place] [address]- 1167 14 Apr, 2012 [facility] [place] [facility] [address] [id number], [place] [address]- 7681 14 Apr, 2012 [facility] [place] [facility] [address] [id number] [place] [address]- 5348 14 Apr, 2012 [facility] [place] [facility] [address] [facility] [id number] [place] [address]- 5940 14 Apr, 2012 [facility] [place] [facility] [address] [facility] [id number] [place] [address]- 0812 10 Apr, 2012 [facility] [place] [facility] [address] [id number] [place] [address]- 2006 Apr, [facility] [place] [facility] [address] [id number] [place] [address]- 1036 Apr, [facility] [place] [facility] [address] [id number] [place] [address]- 2276 Apr, [facility] [place] [facility] [address] [id number] [place] [address]- 3486 Apr, [facility] [place] [facility] [address] [id number] [place] [address] 2546 Apr, [facility] [place] [facility] [address] [id number] [place] [address]- 6616 Apr, [facility] [place] [facility] [address] [id number] [place] [address]- 0694 Apr, [facility] [place] [facility] [address] [id number] [place] [address]- 1587 Apr, [facility] [place] [facility] [address] [id number] [place] [address]- 8716 Mar, [facility] [place] [facility] [address] [id number] [place] [address]- 3064 Mar, [facility] [place] [facility] [address] [facility] [id number] [place] [address]- 6052 Mar, [facility] [place] [facility] [address] [id number] [place] [address] 2546 Mar, [facility] [place] [facility] [address] [id number] [place] [address]- 2545 Mar, [facility] [place] [facility] [address] [id number] [place] [address]- 0191 Mar, [facility] [place] [facility] [address] [id number] [place] [address]- 2548 Mar, [facility] [place] [facility] [address] [id number] [place] [address]- 0948 Mar, [facility] [place] [facility] [address] [id number] [place] [address]- 8249 Mar, [facility] [place] [facility] [address] [id number] [place] [address]- 8177 Mar, [facility] [place] [facility] [address] [id number] [place] [address]- 6371 Mar, [facility] [place] [facility] [id number] [place] [address], [place] [address]- 0816 Mar, [facility] [place] [facility] [address] [id number] [place] [address]- 1667 Mar, [facility] [place] [facility] [address] [id number] [place] [address]- 4754 Feb, [facility] [place] [facility] [address] [id number] [place] [address]- 9439 Feb, [facility] [place] [facility] [address] [id number] [place] [address]- 1866 Feb, [facility] [place] [facility] [address] [id number] [place] [address]- 4524 Feb, [facility] [place] [facility] [address] [id number], [place] [address]- 6888 Feb, [facility] [place] [facility] [address] [facility] [id number] [place] [address]- 2545 Feb, [facility] [place] [facility] [address] [id number], [place] [address]- 0794 Feb, [facility] [place] [facility] [address] [id number] [place] [address]- 6892 Feb, [facility] [place] [facility] [address] [id number] [place] [address]- 3561 Feb, [facility] [place] [facility] [address] [id number], [place] [address]- 6681 Feb, [facility] [place] [facility] [address] [id number], [place] [address]- 8884 Jan, [facility] [place] [facility] [address] [id number] [place] [address]- 9508 Dec, [facility] [place] [facility] [address] [id number] [place] [address]- 0453 Dec, [facility] [place] [facility] [address] [id number] [place] [address]- 0817 Nov, [facility] [place] [facility] [address] [id number] [place] [address]- 6784 Nov, [facility] [place] [facility] [address] [id number] [place] [address]- 4537 Nov, [facility] [place] [facility] [address] [id number] [place] [address]- 3372 Nov, [facility] [place] [facility] [address] [id number] [place] [address]- 2456 Oct, [facility] [place] [facility] [address] [id number] [place] [address]- 7474 Oct, [facility] [place] [facility] [address] [id number] [place] [address]- 6892 Oct, [facility] [place] [facility] [address] [id number] [place] [address]- 1373 Oct, [facility] [place] [facility] [address] [id number] [place] [address]- 0772 September, [facility] [place] [facility] [address] [id number] [place] [address]- 1307 September, [facility] [place] [facility] [address] [id number] [place] [address]- 4437 Aug, [facility] [place] [facility] [address] [id number] [place] [address]- 1839 Aug, [facility] [place] [facility] [address] [id number] [place] [address]- 2356 Aug, [facility] [place] [facility] [address], [place] [address]- 5284 30 Jul, 2011 [facility] [address], [place] [address]- 7792 Jul, [facility] [address], [place] [address]- 4090 Jun, [facility] [address], [place] [address]- 5376 Jun, [facility] [address], [place] [address]- 2319 Jun, [facility] [address] [place] [address] 73411- 3635 Apr, [facility] [address], [place] [address]- 0860 Apr, [facility] [address], [place] [address]- 9691 Mar, [facility] [address] 9428 Mar, [facility] [address] 7538 Feb, [facility] [address], [place] [address]- 4556 Dec, [facility] [address] [address]60 Nov, IMMUNIZATIONS No Known Immunizations SOCIAL HISTORY Never Assessed REASON FOR VISIT f/monty Morgan RN PLAN OF CARE Activity Details Follow Up 3 Months Reason: VITAL SIGNS Height 74 in 2017-12-14 Weight 301 lbs 2017-12-14 Temperature 97.4 degrees Fahrenheit 2017-12-14 Heart Rate 80 bpm 2017-12-14 Respiratory Rate 20 2017-12-14 BMI 38.64 kg/m2 2017-12-14 Blood pressure systolic 132 mmHg 2017-12-14 Blood pressure diastolic 77 mmHg 2017-12-14 MEDICATIONS Medication Instructions Dosage Frequency Start Date End Date Duration Status Rivastigmine 9.5 MG/24HR 1 Patch 24 hr by Transdermal route 1 time per day Nov, Active NovoLog Flexpen 100 unit/mL inject 10 Units by Subcutaneous route before meals 3 times per day Nov, Active Neurontin 300 MG Orally Three times a day 2 capsules 8h Oct, Active Cane Apr, Active Multivitamin Active Synthroid 25 mcg 1 tablet by Oral route 1 time per day Jul, Active BuSpar 5 mg orally BID 1 tablet 12h Active Ranitidine 150mg Oral Once a day 24h Active Claritin 10 MG Orally Once a day 24h Active Eliquis 5 mg Orally 2 times a day 12h Active Effexor 75 mg Orally BID 1 tablet with food 12h Active Melatonin 3 MG Active Depakote 125 MG Orally once a day 1 cap 24h September, Active Lactulose 20 GM/30ML Orally q 12 hours prn 15 ml Active immodium Active NovoLog 100 UNIT/ML Active Levemir 100 UNIT/ML Subcutaneous 2 times a day 23 units 12h Active Cholecalciferol 2000 UNIT Active Metoprolol Tartrate 25 MG Orally Twice a day 12h Active Levemir Flexpen 100 unit/mL (3 mL) 40 Unit by Subcutaneous route 1 time per day at bedtime Nov, Active Hydrocodone-Acetaminophen 5-325 MG Orally every 8 hours 1 capsule as needed 8h Active RESULTS No Results PROCEDURES Procedure Date Ordered Result Body Site [facility] VISIT ESTABLISHED PATIENT Dec 14, 2017 INSTRUCTIONS MEDICATIONS ADMINISTERED No Known Medications [...]
--- OUTSIDE RECORDS SUMMARY | 2018-03-05 07:35 | XMS REPORT ---
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 314531130 Problem Vascular dementia, uncomplicated 290.40 Active 89394043 Problem Unspecified episodic mood disorder 296.90 Active 220075546 Problem Vascular dementia with behavioral disturbance F01.51 Active 343235862018034 Problem Major depressive disorder, recurrent, unspecified F33.9 Active 19626523 Problem Diabetes mellitus without mention of complication, type II or unspecified type, not stated as uncontrolled 250.00 Active 669048798 Problem Other and unspecified hyperlipidemia 272.4 Active 51188547 Problem Unspecified mood [affective] disorder F39 Active 43107581 Problem 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 Active 03083859 Problem Diarrhea 787.91 Active 88764323 Problem Nausea with vomiting 787.01 Active 37380837 Problem Unspecified disorder of skin and subcutaneous tissue 709.9 Active 29080514 Problem Unspecified local infection of skin and subcutaneous tissue 686.9 Active 215208274 Problem Pain in joint, lower leg 719.46 Active 485034339 Problem Unspecified hypotension 458.9 Active 22613541 Problem Pain in joint, shoulder region 719.41 Active 178214207 Problem 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 [id number] [id number] [address] Feb, [facility] [address] [facility] [id number] [id number] [address] Feb, [facility] [address] [facility] [id number], [place] [address] 6802 Dec, Major depressive disorder, recurrent, unspecified F33.9 [facility] [id number] [place] [address] 33022- 9592 Oct, Unspecified mood [affective] disorder F39 [facility] [id number] [place] [address] 241568- 9221 September, Major depressive disorder, recurrent, unspecified F33.9 [facility] [id number] [place] [address] [id number] May, [facility] [id number] [place] [address] 14841- 8260 May, Major depressive disorder, recurrent, unspecified F33.9 [facility] [id number] [place] [address] 21486- 5490 Feb, Major depressive disorder, recurrent, unspecified F33.9 [facility] [id number] [place] [address] 18594- 7456 Jan, Major depressive disorder, recurrent, unspecified F33.9 [facility] [id number] [place] [address] 99497- 1909 Jan, Major depressive disorder, recurrent, unspecified F33.9 [facility] [id number] [place] [address] 25046- 3280 Jan, Major depressive disorder, recurrent, unspecified F33.9 [facility] [id number] [place] [address] 99720- 3539 Dec, Major depressive disorder, recurrent, unspecified F33.9 [facility] [id number] [place] [address] 78222- 6785 Nov, Major depressive disorder, recurrent, unspecified F33.9 [facility] [address], [place] [address] 4283 Nov, 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 [facility] [address] [id number] [address] 3725 08 Oct, 2016 Unspecified mood [affective] disorder F39 ; Major depressive disorder, recurrent, unspecified F33.9 and Vascular dementia with behavioral disturbance F01.51 [facility] [address] [id number] [address] 7789 24 May, 2016 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 [facility] [id number] [place] [address] 52141- 4895 14 Aug, 2014 [facility] [id number] [place] [address] 70047- 2907 13 Aug, 2014 [facility] [id number] [place] [address] 24457- 9293 15 Feb, 2013 [facility] [id number] [place] [address] 70256- 6870 Feb, [facility] [id number] [place] [address] 32001- 7943 Feb, [facility] [id number] [place] [address] 64457- 9616 Feb, [facility] [id number] [place] [address] 04845- 5549 23 Jan, 2012 [facility] [address], [place] [address] 1050 20 Jan, 2012 [facility] [id number] [address] 5651 18 Sep, 2012 [facility] [address], [place] [address]- 4869 10 Sep, 2012 [facility] [id number] [place] [address] 62807- 1693 09 Sep, 2012 [facility] [address], [place] [address]- 7212 06 Sep, 2012 [facility] [id number] [place] [address] 57807- 7172 Jan, [facility] [address] [id number] [place] [address]- 8666 Jan, [facility] [place] [facility] [address] [id number] [place] [address]- 9635 Jan, [facility] [address] [id number] [place] [address]- 5017 Dec, [facility] [place] [facility] [address] [id number] [place] [address]- 5113 Nov, [facility] [address] [id number] [place] [address]- 8828 Nov, [facility] [place] [facility] [address] [id number] [place] [address]- 3078 Nov, [facility] [address] [id number] [place] [address]- 7953 Nov, [facility] [place] [facility] [address] [id number] [place] [address]- 1597 Nov, [facility] [address] [id number] [place] [address]- 7733 Oct, [facility] [place] [facility] [address] [id number] [place] [address]- 6494 Oct, [facility] [place] [facility] [address] [id number] [place] [address]- 5665 Oct, [facility] [place] [facility] [address] [id number], [place] [address]- 7157 Oct, [facility] [place] [facility] [address] [id number] [place] [address]- 4643 Oct, [facility] [place] [facility] [address] [id number] [place] [address]- 9680 September, [facility] [place] [facility] [address] [id number] [place] [address]- 2266 September, [facility] [place] [facility] [address] [id number] [place] [address]- 8557 30 Aug, 2012 [facility] [place] [facility] [address] [id number] [place] [address]- 6691 15 Aug, 2012 [facility] [place] [facility] [address] [id number] [place] [address]- 9917 02 Aug, 2012 [facility] [place] [facility] [address] [id number] [place] [address]- 6996 28 Jul, 2012 [facility] [place] [facility] [address] [id number] [place] [address]- 9800 25 Jul, 2012 [facility] [place] [facility] [address] [id number] [place] [address]- 4807 22 Jul, 2012 [facility] [place] [facility] [address] [id number] [place] [address]- 9882 21 Jul, 2012 [facility] [place] [facility] [address] [id number] [place] [address]- 4776 20 Jul, 2012 [facility] [place] [facility] [address] [id number] [place] [address]- 8945 19 Jul, 2012 [facility] [place] [facility] [address] [id number] [place] [address]- 3079 19 Jul, 2012 [facility] [place] [facility] [address] [id number] [place] [address]- 2229 18 Jul, 2012 [facility] [place] [facility] [address] [id number] [place] [address]- 8179 14 Jul, 2012 [facility] [place] [facility] [address] [id number] [place] [address]- 2408 18 Jun, 2012 [facility] [place] [facility] [address] [id number] [place] [address]- 3673 08 Jun, 2012 [facility] [place] [facility] [address] [id number] [place] [address]- 5000 06 Jun, 2012 [facility] [place] [facility] [address] [id number] [place] [address]- 2876 31 May, 2012 [facility] [address] [id number] [place] [address]- 8960 30 May, 2012 [facility] [place] [facility] [address] [id number] [place] [address]- 9961 29 May, 2012 [facility] [address] [id number] [place] [address]- 6081 28 May, 2012 [facility] [place] [facility] [address] [id number] [place] [address]- 3147 31 Apr, 2012 [facility] [address] [id number] [place] [address]- 2081 31 Apr, 2012 [facility] [address] [id number] [place] [address]- 4760 18 Apr, 2012 [facility] [place] [facility] [address] [id number] [place] [address]- 9797 18 Apr, 2012 [facility] [place] [facility] [address] [id number] [place] [address]- 7938 17 Apr, 2012 [facility] [place] [facility] [address] [id number] [place] [address]- 1901 17 Apr, 2012 [facility] [place] [facility] [address] [id number] [place] [address]- 0997 14 Apr, 2012 [facility] [place] [facility] [address] [id number] [place] [address]- 6480 14 Apr, 2012 [facility] [place] [facility] [address] [id number] [place] [address]- 3426 14 Apr, 2012 [facility] [place] [facility] [address] [id number] [place] [address]- 8605 14 Apr, 2012 [facility] [place] [facility] [address] [id number] [place] [address]- 9680 10 Apr, 2012 [facility] [place] [facility] [address] [id number] [place] [address]- 8241 10 Apr, 2012 [facility] [place] [facility] [address] [id number] [place] [address]- 3601 Apr, [facility] [address] [id number] [place] [address]- 4564 Apr, [facility] [place] [facility] [address] [id number] [place] [address]- 9836 Apr, [facility] [address] [id number] [place] [address]- 0026 Apr, [facility] [place] [facility] [address] [id number] [place] [address]- 1145 Apr, [facility] [address] [id number] [place] [address]- 9769 Apr, [facility] [place] [facility] [address] [id number] [place] [address]- 7627 Apr, [facility] [place] [facility] [address] [id number] [place] [address]- 3232 Mar, [facility] [place] [facility] [address] [id number] [place] [address]- 7963 Mar, [facility] [place] [facility] [address] [facility] [id number] [place] [address]- 0469 Mar, [facility] [address] [facility] [id number] [place] [address]- 2800 Mar, [facility] [place] [facility] [address] [id number] [place] [address]- 2376 Mar, [facility] [place] [facility] [address] [id number] [place] [address]- 7972 Mar, [facility] [place] [facility] [address] [id number] [place] [address]- 1072 Mar, [facility] [place] [facility] [address] [facility] [id number] [place] [address]- 1947 Mar, [facility] [place] [facility] [address] [facility] [id number] [place] [address]- 5008 Mar, [facility] [place] [facility] [address] [id number] [place] [address]- 4511 Mar, [facility] [place] [facility] [address] [id number] [place] [address]- 6362 Mar, [facility] [place] [facility] [address] [id number] [place] [address]- 5404 Mar, [facility] [place] [facility] [address] [id number] [place] [address]- 9594 Mar, [facility] [place] [facility] [address] [id number] [place] [address]- 7460 Feb, [facility] [place] [facility] [address] [id number] [place] [address]- 4550 Feb, [facility] [place] [facility] [address] [facility] [id number] [place] [address]- 3104 Feb, [facility] [place] [facility] [address] [id number], [place] [address]- 2079 Feb, [facility] [place] [facility] [address] [facility] [id number], [place] [address]- 2730 Feb, [facility] [place] [facility] [address] [facility] [id number], [place] [address]- 9382 Feb, [facility] [place] [facility] [address] [facility] [id number], [place] [address]- 5055 Feb, [facility] [place] [facility] [address] [id number], [place] [address]- 5095 Feb, [facility] [place] [facility] [address] [facility] [id number], [place] [address]- 5642 Feb, [facility] [place] [facility] [address] [facility] [id number], [place] [address]- 6866 Feb, [facility] [place] [facility] [address] [facility] [id number], [place] [address]- 1620 Jan, [facility] [place] [facility] [address] [id number], [place] [address]- 5717 Dec, [facility] [place] [facility] [address] [id number] [place] [address]- 5645 Dec, [facility] [place] [facility] [address] [id number] [place] [address]- 1794 Nov, [facility] [place] [facility] [address] [id number] [place] [address]- 0267 Nov, [facility] [place] [facility] [address] [id number] [place] [address]- 8076 Nov, [facility] [place] [facility] [address] [id number] [place] [address]- 7293 Nov, [facility] [place] [facility] [address] [id number] [place] [address]- 9608 Oct, [facility] [place] [facility] [address] [id number] [place] [address]- 2717 Oct, [facility] [place] [facility] [address] [id number] [place] [address]- 5126 Oct, [facility] [place] [facility] [address] [id number] [place] [address]- 9631 Oct, [facility] [place] [facility] [address] [id number] [place] [address]- 6738 September, [facility] [place] [facility] [address] [id number] [place] [address]- 5836 September, [facility] [place] [facility] [address] [id number] [place] [address]- 6660 Aug, [facility] [place] [facility] [address] [id number] [place] [address]- 9288 Aug, [facility] [place] [facility] [address] [id number] [place] [address]- 5382 Aug, [facility] [place] [facility] [address] [id number] [place] [address]- 1220 Jul, [facility] [place] [facility] [address], [place] [address]- 2742 Jul, [facility] [address], [place] [address]- 0510 Jun, [facility] [address], [place] [address]- 3800 Jun, [facility] [id number] [place] [address] 465492- 0293 Jun, [facility] [address], [place] [address]- 4411 Apr, [facility] [id number] [place] [address] 37697- 1599 Apr, [facility] [id number], [place] [address]- 1556 Mar, [facility] [id number] [place] [address] 41614- 5521 Mar, [facility] [address], [place] [address]- 1849 Feb, [facility] [address], [place] [address]- 1332 Dec, [facility] [address], [place] [address]- 5033 Nov, IMMUNIZATIONS No Known Immunizations SOCIAL HISTORY Never Assessed REASON FOR VISIT f/u PLAN OF CARE Activity Details Follow Up 3 Months, prn Reason: VITAL SIGNS Height 74 in 2017-09-14 Weight 305.5 lbs 2017-09-14 Heart Rate 58 bpm 2017-09-14 Respiratory Rate 22 2017-09-14 BMI 39.22 kg/m2 2017-09-14 Blood pressure systolic 122 mmHg 2017-09-14 Blood pressure diastolic 80 mmHg 2017-09-14 MEDICATIONS Medication Instructions Dosage Frequency Start Date End Date Duration Status Depakote 125 MG Orally once a day 1 cap 24h September, Active Cane Apr, Active Eliquis 5 mg Orally 2 times a day 12h Active Neurontin 300 MG Orally Three times a day 2 capsules 8h 04 Oct, 2011 Active Levemir 100 UNIT/ML Subcutaneous 2 times a day 23 units 12h Active Rivastigmine 9.5 MG/24HR 1 Patch 24 hr by Transdermal route 1 time per day Nov, Active Hydrocodone-Acetaminophen 5-325 MG Orally every 8 hours 1 capsule as needed 8h Active NovoLog 100 UNIT/ML Active Ranitidine 150mg Oral Once a day 24h Active Lactulose 20 GM/30ML Orally q 12 hours prn 15 ml Active Multivitamin Active immodium Active Effexor 75 mg Orally BID 1 tablet with food 12h 30 days Active Claritin 10 MG Orally Once a day 24h Active BuSpar 5 mg orally BID 1 tablet 12h Active Levemir Flexpen 100 unit/mL (3 mL) 40 Unit by Subcutaneous route 1 time per day at bedtime Nov, Active BuSpar 15 mg Orally Twice a day 1 tablet 12h Apr, Active Cholecalciferol 2000 UNIT Active NovoLog Flexpen 100 unit/mL inject 10 Units by Subcutaneous route before meals 3 times per day Nov, Active Synthroid 25 mcg 1 tablet by Oral route 1 time per day Jul, Active Melatonin 3 MG Active Metoprolol Tartrate 25 MG Orally Twice a day 12h Active RESULTS No Results PROCEDURES Procedure Date Ordered Result Body Site [facility] VISIT ESTABLISHED PATIENT September 14, 2017 INSTRUCTIONS MEDICATIONS ADMINISTERED No Known [...]
--- OUTSIDE RECORDS SUMMARY | 2018-03-05 07:35 | XMS REPORT ---
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 803938759 Problem Vascular dementia, uncomplicated 290.40 Active 17101019 Problem Unspecified episodic mood disorder 296.90 Active 153625994 Problem Vascular dementia with behavioral disturbance F01.51 Active 822849831398690 Problem Major depressive disorder, recurrent, unspecified F33.9 Active 89037068 Problem Diabetes mellitus without mention of complication, type II or unspecified type, not stated as uncontrolled 250.00 Active 739028703 Problem Other and unspecified hyperlipidemia 272.4 Active 16254111 Problem Unspecified mood [affective] disorder F39 Active 37722221 Problem 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 Active 65021634 Problem Diarrhea 787.91 Active 63397577 Problem Nausea with vomiting 787.01 Active 85243483 Problem Unspecified disorder of skin and subcutaneous tissue 709.9 Active 22174345 Problem Unspecified local infection of skin and subcutaneous tissue 686.9 Active 527623767 Problem Pain in joint, lower leg 719.46 Active 691778444 Problem Unspecified hypotension 458.9 Active 83082809 Problem Pain in joint, shoulder region 719.41 Active 866609559 Problem 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
--- OUTSIDE RECORDS SUMMARY | 2018-03-05 07:35 | XMS REPORT ---
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 203434903 Problem Vascular dementia, uncomplicated 290.40 Active 06697871 Problem Unspecified episodic mood disorder 296.90 Active 908682049 Problem Vascular dementia with behavioral disturbance F01.51 Active [id number] Problem Major depressive disorder, recurrent, unspecified F33.9 Active 92883409 Problem Diabetes mellitus without mention of complication, type II or unspecified type, not stated as uncontrolled 250.00 Active 511504867 Problem Other and unspecified hyperlipidemia 272.4 Active 78639306 Problem Unspecified mood [affective] disorder F39 Active 18519395 Problem 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 Active 13367323 Problem Diarrhea 787.91 Active 31565835 Problem Nausea with vomiting 787.01 Active 92532438 Problem Unspecified disorder of skin and subcutaneous tissue 709.9 Active 39452527 Problem Unspecified local infection of skin and subcutaneous tissue 686.9 Active 929587062 Problem Pain in joint, lower leg 719.46 Active 291642944 Problem Unspecified hypotension 458.9 Active 56349357 Problem Pain in joint, shoulder region 719.41 Active 939341542 Problem 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 Active 699553208 ALLERGIES Substance Reaction Event Type Date Status Morphine Unknown Drug Allergy May, Active Zocor 40 Mg Tablet BLOODY DIARRHEA Non Drug Allergy May, Active ENCOUNTERS Encounter Location Date Diagnosis [facility] [address] [facility] [id number] [address] Dec, [facility] [address] [facility] [id number] [id number] [address] Oct, [facility] [address] [address] September, Major depressive disorder, recurrent, unspecified F33.9 [facility] [address] [id number] [id number] May, [facility] [id number] [place] [address] May, Major depressive disorder, recurrent, unspecified F33.9 [facility] [address] [place] [address] 355532- 2930 Feb, Major depressive disorder, recurrent, unspecified F33.9 [facility] [address] [place] [address]49600- 5402 Jan, Major depressive disorder, recurrent, unspecified F33.9 [facility] [address] [place] [address]- 8333 Jan, Major depressive disorder, recurrent, unspecified F33.9 [facility] [address] [place] [address]- 9552 Jan, Major depressive disorder, recurrent, unspecified F33.9 [facility] [address] [address] Dec, Major depressive disorder, recurrent, unspecified F33.9 [facility] [address] [place] [address]- 2676 Nov, Major depressive disorder, recurrent, unspecified F33.9 [facility] [address] [place] [address] 747661- 5396 Nov, 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 [facility] [address] [address] Oct, Unspecified mood [affective] disorder F39 ; Major depressive disorder, recurrent, unspecified F33.9 and Vascular dementia with behavioral disturbance F01.51 [facility] [address] [address] 24 May, 2016 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 [facility] [address] [address] 14 Aug, 2014 [facility] [address] [address] Aug, [facility] [id number] [place] [address]99- 7303 15 Feb, 2013 [facility] [address] [place] [address] 11514- 4754 Feb, [facility] [id number] [place] [address] 84231- 9842 Feb, [facility] [id number] [place] [address]- 1310 Feb, [facility] [address] [id number] [address] 23 Sep, 2012 [facility] [address] [place] [address]- 2549 20 Sep, 2012 [facility] [address] [address] 2541 18 Sep, 2012 [facility] [address] [address] 2548 10 Sep, 2012 [facility] [address] [address] 2544 09 Sep, 2012 [facility] [address] [place] [address]09- 2545 06 Sep, 2012 [facility] [address] [address] 2542 06 Sep, 2012 [facility] [address] [address] 2542 05 Sep, 2012 [facility] [address] [id number] [place] [address]- 2546 05 Jan, 2013 [facility] [address] [id number] [place] [address] 3146 Dec, [facility] [address] [id number] [place] [address]- 5786 Nov, [facility] [address] [id number] [place] [address]- 0898 Nov, [facility] [address] [id number] [place] [address]- 5483 Nov, [facility] [address] [id number] [place] [address]- 1217 Nov, [facility] [address] [id number] [place] [address] 1959 Nov, [facility] [address] [id number] [place] [address]- 5759 Oct, [facility] [address] [id number] [place] [address]- 3424 Oct, [facility] [address] [id number] [place] [address]- 0830 Oct, [facility] [address] [id number] [place] [address] 1954 Oct, [facility] [address] [id number] [place] [address]- 5006 Oct, [facility] [address] [id number] [place] [address]- 8506 September, [facility] [address] [id number] [place] [address]- 4160 September, [facility] [address] [id number] [place] [address]- 1836 Aug, [facility] [address] [id number] [place] [address]- 4766 Aug, [facility] [address] [id number] [place] [address]- 2075 02 Aug, 2012 [facility] [place] [facility] [address] [id number] [place] [address]- 4603 28 Jul, 2012 [facility] [place] [facility] [address] [id number] [place] [address]- 8124 25 Jul, 2012 [facility] [place] [facility] [address] [id number] [place] [address]- 9913 22 Jul, 2012 [facility] [address] [id number] [place] [address]- 0924 21 Jul, 2012 [facility] [place] [facility] [address] [id number] [place] [address]- 3296 20 Jul, 2012 [facility] [place] [facility] [address] [id number] [place] [address]- 8070 19 Jul, 2012 [facility] [place] [facility] [address] [id number] [place] [address]- 0218 19 Jul, 2012 [facility] [place] [facility] [address] [id number] [place] [address]- 0499 18 Jul, 2012 [facility] [place] [facility] [address] [id number] [place] [address]- 7734 14 Jul, 2012 [facility] [place] [facility] [address] [id number] [place] [address]- 7668 18 Jun, 2012 [facility] [place] [facility] [address] [id number] [place] [address]- 4004 08 Jun, 2012 [facility] [place] [facility] [address] [id number] [place] [address]- 3397 06 Jun, 2012 [facility] [place] [facility] [address] [id number] [place] [address]- 5250 May, [facility] [place] [facility] [address] [id number] [place] [address]- 5228 30 May, 2012 [facility] [place] [facility] [address] [id number] [place] [address]- 1298 29 May, 2012 [facility] [address] [id number] [place] [address]- 7774 28 May, 2012 [facility] [place] [facility] [address] [id number] [place] [address]- 4356 31 Apr, 2012 [facility] [address] [id number] [place] [address]- 4876 31 Apr, 2012 [facility] [place] [facility] [address] [id number] [place] [address]- 2789 18 Apr, 2012 [facility] [address] [id number] [place] [address]- 5128 18 Apr, 2012 [facility] [address] [id number] [place] [address]- 1904 17 Apr, 2012 [facility] [address] [id number] [place] [address]- 3736 17 Apr, 2012 [facility] [address] [id number] [place] [address]- 7767 14 Apr, 2012 [facility] [place] [facility] [address] [id number] [place] [address]- 7311 14 Apr, 2012 [facility] [address] [id number] [place] [address]- 0692 14 Apr, 2012 [facility] [place] [facility] [address] [id number] [place] [address]- 6706 14 Apr, 2012 [facility] [place] [facility] [address] [id number] [place] [address]- 2546 10 Apr, 2012 [facility] [place] [facility] [address] [id number] [place] [address]- 2986 10 Apr, 2012 [facility] [place] [facility] [address] [id number] [place] [address]- 2546 10 Apr, 2012 [facility] [place] [facility] [address] [id number] [place] [address]- 5923 10 Apr, 2012 [facility] [place] [facility] [address] [id number] [place] [address]- 8549 Apr, [facility] [place] [facility] [address] [id number] [place] [address]- 4882 Apr, [facility] [place] [facility] [address] [id number] [place] [address]- 5077 Apr, [facility] [place] [facility] [address] [id number] [place] [address]- 3055 Apr, [facility] [place] [facility] [address] [id number] [place] [address]- 5636 Apr, [facility] [place] [facility] [address] [id number] [place] [address]- 7392 Mar, [facility] [place] [facility] [address] [id number] [place] [address]- 1266 30 Mar, 2012 [facility] [place] [facility] [address] [id number] [place] [address]- 8967 Mar, [facility] [place] [facility] [address] [id number] [place] [address]- 2557 Mar, [facility] [place] [facility] [address] [id number] [place] [address]- 2511 Mar, [facility] [place] [facility] [address] [id number] [place] [address]- 6017 Mar, [facility] [place] [facility] [address] [id number] [place] [address]- 1398 Mar, [facility] [place] [facility] [address] [id number] [place] [address]- 4289 Mar, [facility] [place] [facility] [address] [id number] [place] [address]- 8902 Mar, [facility] [place] [facility] [address] [id number] [place] [address]- 3391 14 Mar, 2012 [facility] [place] [facility] [address] [id number] [place] [address]- 2546 Mar, [facility] [place] [facility] [address] [id number] [place] [address]- 3438 Mar, [facility] [place] [facility] [address] [id number] [place] [address]- 0946 Mar, [facility] [place] [facility] [address] [id number] [place] [address]- 9357 Feb, [facility] [place] [facility] [address] [id number] [place] [address]- 0247 Feb, [facility] [place] [facility] [address] [id number] [place] [address]605 Feb, [facility] [place] [facility] [address] [id number] [place] 9415 Feb, [facility] [place] [facility] [address] [id number] [place] 0624 Feb, [facility] [place] [facility] [address] [id number] [place] [address]- 2248 Feb, [facility] [place] [facility] [address] [id number] [place] [address]- 6391 Feb, [facility] [place] [facility] [address] [id number] [place] [address]- 7752 Feb, [facility] [place] [facility] [address] [id number], [place] [address]- 5359 Feb, [facility] [place] [facility] [address] [id number] [address]- 2436 Feb, [facility] [place] [facility] [address] [id number] [place] [address]- 9059 Jan, [facility] [place] [facility] [address] [id number] [place] [address]- 8193 Dec, [facility] [place] [facility] [address] [id number] [place] [address]- 9392 Dec, [facility] [place] [facility] [address] [id number] [place] [address]- 2669 27 Nov, 2011 [facility] [address] [id number] [place] [address]- 4420 Nov, [facility] [place] [facility] [address] [id number] [place] [address]- 8766 Nov, [facility] [address] [id number] [place] [address]- 2587 Nov, [facility] [address] [id number] [place] [address]- 0841 Oct, [facility] [address] [id number] [place] [address]- 6389 Oct, [facility] [address] [id number] [place] [address]- 3659 Oct, [facility] [address] [id number] [place] [address]- 7030 Oct, [facility] [address] [id number] [place] [address]- 1646 September, [facility] [address] [id number] [place] [address]- 4923 September, [facility] [address] [id number] [place] [address]- 3023 Aug, [facility] [place] [facility] [address] [id number] [place] [address]- 6257 Aug, [facility] [address] [id number] [place] [address]- 8751 Aug, [facility] [place] [facility] [address] [id number] [place] [address]- 6946 30 Jul, 2011 [facility] [place] [facility] [address] [id number] [place] [address]- 2546 14 Jul, 2011 [facility] [address] [id number] [place] [address]- 1831 Jun, [facility] [id number] [address]- 5857 Jun, [facility] [address] [address]- 8233 Jun, [facility] [address], [place] [address]- 3610 Apr, [facility] [address] [address]- 1769 Apr, [facility] [address] [address]- 5950 Mar, [facility] [address] [address]- 7459 Mar, [facility] [address], [place] [address]- 8785 Feb, [facility] [address], [place] [address]- 1045 Dec, [facility] [address], [place] [address]- 9119 Nov, IMMUNIZATIONS No Known Immunizations SOCIAL HISTORY Never Assessed REASON FOR VISIT f/u Jolly PLAN OF CARE Activity Details Follow Up 4 Months Reason: VITAL SIGNS Height 74 in 2017-05-18 Heart Rate 72 bpm 2017-05-18 Respiratory Rate 20 2017-05-18 Blood pressure systolic 118 mmHg 2017-05-18 Blood pressure diastolic 72 mmHg 2017-05-18 MEDICATIONS Medication Instructions Dosage Frequency Start Date End Date Duration Status Econazole Nitrate 1 % Active Depakote 250 MG Orally 3 times a day 8h September, Active Rivastigmine 4.6 mg/24 hour 1 Patch 24 hr by Transdermal route 1 time per day Nov, Active Levothroid 100 MCG 1 1/2 tablets Active Levemir Flexpen 100 unit/mL (3 mL) 40 Unit by Subcutaneous route 1 time per day at bedtime Nov, Active Hydrocodone-Acetaminophen 5-325 MG Orally every 8 hours 1 capsule as needed 8h Active Cholecalciferol 2000 UNIT Active Synthroid 25 mcg 1 tablet by Oral route 1 time per day Jul, Not-Taking Claritin 10 MG Orally Once a day 24h Active Xanax 1 MG Orally at night as needed for sleep 1 tablet Jan, 30 days Active Eliquis 5 mg Orally 2 times a day 12h Active Neurontin 300 MG Orally Three times a day 3 capsules 8h Oct, Active Oxycodone-Acetaminophen 10-325 mg 1 tablet by Oral route every 6 hours Jan, Active Lisinopril 10 MG Active Effexor 75 mg Orally twice a day 1 tablet with food 12h Active immodium Active BuSpar 15 mg Orally Twice a day 1 tablet 12h Apr, Active Cane Apr, Unknown Ranitidine 150mg Oral Once a day 24h Active NovoLog Flexpen 100 unit/mL inject 10 Units by Subcutaneous route before meals 3 times per day Nov, Active Melatonin 3 MG Active Multivitamin Active Nitrostat 0.4 mg 1 tablet by Sublingual route 3 times per day PRN chest pain; may repeat q 5 min x 2 Jan, Unknown Lipitor 20 mg take 1 tablet (20 mg) by oral route once daily May, Active Metoprolol Tartrate 25 MG Orally Twice a day 12h Active NovoLog 100 UNIT/ML Not-Taking Tradjenta 5 MG Orally Once a day 1 tablet 24h Active Gentamicin Sulfate 0.1 % Active Levemir 100 UNIT/ML Subcutaneous 2 times a day 23 units 12h Not- Taking RESULTS No Results PROCEDURES Procedure Date Ordered Result Body Site [facility] VISIT ESTABLISHED PATIENT May 18, 2017 INSTRUCTIONS MEDICATIONS ADMINISTERED No Known Medications [...]
--- OUTSIDE RECORDS SUMMARY | 2018-03-05 07:36 | XMS REPORT ---
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 836659013 Problem Vascular dementia, uncomplicated 290.40 Active 92984168 Problem Unspecified episodic mood disorder 296.90 Active 180985320 Problem Vascular dementia with behavioral disturbance F01.51 Active [id number] Problem Major depressive disorder, recurrent, unspecified F33.9 Active 01190987 Problem Diabetes mellitus without mention of complication, type II or unspecified type, not stated as uncontrolled 250.00 Active 111520800 Problem Other and unspecified hyperlipidemia 272.4 Active 89603197 Problem Unspecified mood [affective] disorder F39 Active 60174895 Problem 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 Active 93596320 Problem Diarrhea 787.91 Active 80127959 Problem Nausea with vomiting 787.01 Active 50051897 Problem Unspecified disorder of skin and subcutaneous tissue 709.9 Active 90620002 Problem Unspecified local infection of skin and subcutaneous tissue 686.9 Active 655073049 Problem Pain in joint, lower leg 719.46 Active 749440355 Problem Unspecified hypotension 458.9 Active 79681180 Problem Pain in joint, shoulder region 719.41 Active 218198145 Problem 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 Active 997081548 ALLERGIES Substance Reaction Event Type Date Status Morphine Unknown Drug Allergy Feb, Active Zocor 40 Mg Tablet BLOODY DIARRHEA Non Drug Allergy Feb, Active ENCOUNTERS Encounter Location Date Diagnosis [facility] [address] [facility] [id number] [place] [address] Dec, [facility] [address], [place] [address] September, [facility] [id number] [place] [address]57- 0133 September, Major depressive disorder, recurrent, unspecified F33.9 [facility] [id number] [place] [address] [id number] May, [facility] [id number] [place] [address] 60259- 7897 May, Major depressive disorder, recurrent, unspecified F33.9 [facility] [id number] [place] [address] 58791- 1781 Feb, Major depressive disorder, recurrent, unspecified F33.9 [facility] [id number] [place] [address] 57863- 2310 Jan, Major depressive disorder, recurrent, unspecified F33.9 [facility] [id number] [place] [address] 67402- 2751 Jan, Major depressive disorder, recurrent, unspecified F33.9 [facility] [address] [place] [address] 37394- 7152 Jan, Major depressive disorder, recurrent, unspecified F33.9 [facility] [address] [place] [address] 06791- 6189 Dec, Major depressive disorder, recurrent, unspecified F33.9 [facility] [address] [place] [address] 72693- 9799 Nov, Major depressive disorder, recurrent, unspecified F33.9 [facility] [address] [place] [address] 280676- 1735 Nov, 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 [facility] [address], [place] [address] Oct, Unspecified mood [affective] disorder F39 ; Major depressive disorder, recurrent, unspecified F33.9 and Vascular dementia with behavioral disturbance F01.51 [facility] [address], [place] [address] 5[address] 24 May, 2016 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 [facility] [address], [place] [address] 7490 14 Aug, 2014 [facility] [id number] [place] [address] 70039- 5675 13 Aug, 2014 [facility] [id number] [place] [address] 23710- 6366 15 Feb, 2013 [facility] [id number] [place] [address] 03034- 2197 07 Feb, 2013 [facility] [id number] [place] [address] 80956- 7846 Feb, [facility] [id number] [place] [address] 17241- 6854 Feb, [facility] [address], [place] [address] 7265 23 Sep, 2012 [facility] [id number] [place] [address] 89953- 6256 20 Sep, 2012 [facility] [address] [address] 4368 18 Sep, 2012 [facility] [address] [place] [address] 70660- 2549 10 Sep, 2012 [facility] [address], [place] [address]- 2540 09 Sep, 2012 [facility] [id number] [place] [address] 90740- 2543 06 Sep, 2012 [facility] [address] [address]- 2549 06 Sep, 2012 [facility] [address] [place] [address] 13182- 254 05 Sep, 2012 [facility] [address] [id number] [place] [address]- 1137 Jan, [facility] [address] [id number] [place] [address]- 5217 Dec, [facility] [place] [facility] [address] [id number] [place] [address]- 3511 Nov, [facility] [place] [facility] [address] [id number] [place] [address]- 1644 Nov, [facility] [place] [facility] [address] [id number] [place] [address]- 0504 Nov, [facility] [place] [facility] [address] [id number] [place] [address]- 6371 Nov, [facility] [address] [id number] [place] [address]- 4030 Nov, [facility] [place] [facility] [address] [id number] [place] [address]- 8726 Oct, [facility] [place] [facility] [address] [id number] [place] [address]- 9033 Oct, [facility] [place] [facility] [address] [id number] [place] [address]- 2834 Oct, [facility] [place] [facility] [address] [id number] [place] [address]- 8379 Oct, [facility] [place] [facility] [address] [id number] [place] [address]- 6599 Oct, [facility] [place] [facility] [address] [id number] [place] [address]- 9152 September, [facility] [place] [facility] [address] [id number] [place] [address]- 2331 September, [facility] [place] [facility] [address] [id number] [place] [address]- 8389 Aug, [facility] [place] [facility] [address] [id number] [place] [address]- 0090 15 Aug, 2012 [facility] [address] [id number] [place] [address]- 8557 02 Aug, 2012 [facility] [place] [facility] [address] [id number] [place] [address]- 3684 28 Jul, 2012 [facility] [place] [facility] [address] [id number] [place]- 3010 25 Jul, 2012 [facility] [place] [facility] [address] [id number] [place] [address]- 9858 22 Jul, 2012 [facility] [place] [facility] [address] [id number] [place] [address]- 2660 21 Jul, 2012 [facility] [place] [facility] [address] [id number] [place] [address]- 0642 20 Jul, 2012 [facility] [place] [facility] [address] [id number] [place] [address]- 3045 19 Jul, 2012 [facility] [place] [facility] [address] [id number] [place] [address]- 5892 19 Jul, 2012 [facility] [place] [facility] [address] [id number] [place] [address]- 5015 18 Jul, 2012 [facility] [place] [facility] [address] [id number] [place] [address]- 6013 14 Jul, 2012 [facility] [place] [facility] [address] [id number] [place] [address]- 9623 18 Jun, 2012 [facility] [place] [facility] [address] [id number] [place] [address]- 4720 08 Jun, 2012 [facility] [place] [facility] [address] [id number] [place] [address]- 6745 Jun, [facility] [place] [facility] [address] [id number] [place] [address]- 1953 May, [facility] [place] [facility] [address] [id number] [place] [address]- 4308 30 May, 2012 [facility] [place] [facility] [address] [id number] [place] [address]- 5166 29 May, 2012 [facility] [address] [id number] [place] [address]- 5049 28 May, 2012 [facility] [address] [id number] [place] [address]- 3946 31 Apr, 2012 [facility] [address] [id number] [place] [address]- 7334 31 Apr, 2012 [facility] [address] [id number] [place] [address]- 4918 18 Apr, 2012 [facility] [address] [id number] [place] [address]- 7309 18 Apr, 2012 [facility] [address] [id number] [place] [address]- 7001 17 Apr, 2012 [facility] [address] [id number] [place] [address]- 7822 17 Apr, 2012 [facility] [address] [id number] [place] [address]- 8819 14 Apr, 2012 [facility] [address] [id number] [place] [address]- 3814 14 Apr, 2012 [facility] [address] [id number] [place] [address]- 9523 14 Apr, 2012 [facility] [address] [id number] [place] [address]- 6510 14 Apr, 2012 [facility] [address] [id number] [place] [address]- 5985 10 Apr, 2012 [facility] [address] [id number] [place] [address]- 5821 10 Apr, 2012 [facility] [address] [id number] [place] [address]- 8351 10 Apr, 2012 [facility] [address] [id number] [place] [address]- 5464 Apr, [facility] [place] [facility] [address] [id number] [place] [address]- 3807 Apr, [facility] [place] [facility] [address] [id number] [place] [address]- 5730 Apr, [facility] [place] [facility] [address] [id number] [place] [address]- 5009 Apr, [facility] [place] [facility] [address] [id number] [place] [address]- 5770 Apr, [facility] [place] [facility] [address] [id number] [place] [address]- 4571 Apr, [facility] [place] [facility] [address] [id number] [place] [address]- 4524 Mar, [facility] [place] [facility] [address] [id number] [place] [address]- 3052 Mar, [facility] [place] [facility] [address] [id number], [place] [address]- 8716 Mar, [facility] [place] [facility] [address] [id number] [place] [address]- 7938 Mar, [facility] [place] [facility] [address] [facility] [id number], [place] [address]- 5256 Mar, [facility] [place] [facility] [address] [facility] [id number], [place] [address]- 6709 Mar, [facility] [place] [facility] [address] [id number], [place] [address]- 4845 Mar, [facility] [place] [facility] [address] [id number], [place] [address]- 4248 Mar, [facility] [place] [facility] [address] [id number], [place] [address]- 9392 Mar, [facility] [place] [facility] [address] [facility] [id number], [place] [address]- 9817 14 Mar, 2012 [facility] [place] [facility] [address] [id number], [place] [address]- 3380 Mar, [facility] [place] [facility] [address] [id number] [place] [address]- 4727 Mar, [facility] [place] [facility] [address] [facility] [id number], [place] [address]- 1290 Mar, [facility] [place] [facility] [address] [facility] [id number] [place] [address]- 1848 Feb, [facility] [place] [facility] [address] [id number] [place] [address]- 6186 Feb, [facility] [place] [facility] [address] [facility] [id number] [place] [address], [place] 2124 Feb, [facility] [place] [facility] [address] [facility] [id number] [place] [address]- 3094 Feb, [facility] [place] [facility] [id number] [place] [address] 63400- 3825 Feb, [facility] [place] [facility] [address] [facility] [id number] [place] [address]- 9316 Feb, [facility] [place] [facility] [id number] [place] [address]- 5506 Feb, [facility] [place] [facility] [address] [facility] [id number], [place] [address]- 8231 Feb, [facility] [place] [facility] [address] [facility] [id number], [place] [address]- 7795 Feb, [facility] [place] [facility] [address] [facility] [id number], [place] [address]- 4521 Feb, [facility] [place] [facility] [address] [facility] [id number], [place] [address]- 5830 Jan, [facility] [place] [facility] [address] [facility] [id number], [place] [address]- 2410 Dec, [facility] [place] [facility] [id number], [place] [address]- 9661 Dec, [facility] [place] [facility] [address] [id number] [place] [address]- 4373 27 Nov, 2011 [facility] [place] [facility] [address] [id number] [place] [address]- 7949 Nov, [facility] [place] [facility] [address] [id number] [place] [address]- 8406 Nov, [facility] [place] [facility] [address] [id number] [place] [address]- 3256 Nov, [facility] [place] [facility] [address] [id number] [place] [address]- 1623 Oct, [facility] [place] [facility] [address] [id number] [place] [address]- 2396 Oct, [facility] [place] [facility] [address] [id number] [place] [address]- 4019 Oct, [facility] [place] [facility] [address] [id number] [place] [address]- 9817 Oct, [facility] [place] [facility] [address] [id number] [place] [address]- 3725 September, [facility] [place] [facility] [address] [id number] [place] [address]- 0827 September, [facility] [place] [facility] [address] [id number] [place] [address]- 8424 Aug, [facility] [place] [facility] [address] [id number] [place] [address]- 5079 Aug, [facility] [place] [facility] [address] [id number] [place] [address]- 7982 Aug, [facility] [place] [facility] [address] [id number] [place] [address]- 8346 30 Jul, 2011 [facility] [place] [facility] [address] [id number] [place] [address]- 9636 14 Jul, 2011 [facility] [place] [facility] [address] [id number] [place] [address]- 8060 Jun, [facility] [id number], [place] [address]- 7827 Jun, [facility] [address], [place] [address]- 0126 Jun, [facility] [address], [place] [address]- 9620 Apr, [facility] [address], [place] [address]- 7629 Apr, [facility] [address], [place] [address]- 6604 Mar, [facility] [address], [place] [address]- 7191 Mar, [facility] [address], [place] [address]- 0927 Feb, [facility] [address], [place] [address]- 1083 Dec, [facility] [id number], [place] [address]- 2705 Nov, IMMUNIZATIONS No Known Immunizations SOCIAL HISTORY Never Assessed REASON FOR VISIT f/u PLAN OF CARE Activity Details Follow Up 4 Weeks Reason:Depression VITAL SIGNS MEDICATIONS Unknown Medications RESULTS No Results PROCEDURES Procedure Date Ordered Result Body Site Psychotherapy, patient &/family, 30 minutes, established patient Mar 08, 2017 INSTRUCTIONS MEDICATIONS ADMINISTERED No Known Medications [...]
--- OUTSIDE RECORDS SUMMARY | 2018-03-05 07:36 | XMS REPORT ---
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 698951915 Problem Vascular dementia, uncomplicated 290.40 Active 77352519 Problem Unspecified episodic mood disorder 296.90 Active 020765498 Problem Vascular dementia with behavioral disturbance F01.51 Active [id number] Problem Major depressive disorder, recurrent, unspecified F33.9 Active 73923034 Problem Diabetes mellitus without mention of complication, type II or unspecified type, not stated as uncontrolled 250.00 Active 536375784 Problem Other and unspecified hyperlipidemia 272.4 Active 91954046 Problem Unspecified mood [affective] disorder F39 Active 66255709 Problem 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 Active 70431798 Problem Diarrhea 787.91 Active 40222544 Problem Nausea with vomiting 787.01 Active 86258021 Problem Unspecified disorder of skin and subcutaneous tissue 709.9 Active 01406348 Problem Unspecified local infection of skin and subcutaneous tissue 686.9 Active 195152140 Problem Pain in joint, lower leg 719.46 Active 259718816 Problem Unspecified hypotension 458.9 Active 96336072 Problem Pain in joint, shoulder region 719.41 Active 442593965 Problem 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 Active 783643456 ALLERGIES No Information ENCOUNTERS Encounter Location Date Diagnosis [facility] [address] [facility] [id number], [place] [address] September, [facility] [address] [id number] [id number] May, [facility] [address] [facility] [id number] [place] [address]185- [address] May, Major depressive disorder, recurrent, unspecified F33.9 [place] [id number] [place] [address] 87990- 7692 Feb, Major depressive disorder, recurrent, unspecified F33.9 [place] [id number] [place] [address] 76676- 4144 Jan, Major depressive disorder, recurrent, unspecified F33.9 [place] [id number] [place] [address] 39106- 2661 Jan, Major depressive disorder, recurrent, unspecified F33.9 [place] [id number] [place] [address] 45968- 6684 Jan, Major depressive disorder, recurrent, unspecified F33.9 [place] [id number] [place] [address] 78116- 1617 Dec, Major depressive disorder, recurrent, unspecified F33.9 [place] [id number] [place] [address] 08081- 4815 Nov, Major depressive disorder, recurrent, unspecified F33.9 [place] [id number] [place] [address] 96405- 3171 Nov, 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 [place] [id number] [place] [address] 39940- 6357 Oct, Unspecified mood [affective] disorder F39 ; Major depressive disorder, recurrent, unspecified F33.9 and Vascular dementia with behavioral disturbance F01.51 [place] [id number] [place] [address] 65052- 5827 May, 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 [place] [id number] [place] [address] 91211- 8847 Aug, [place] [id number] [place] [address] 45691- 4656 Aug, [facility] [address] [id number] [place] [address] 15 Feb, 2013 [facility] [place] [facility] [address] [id number] [place] [address] 3108 Feb, [facility] [place] [facility] [address] [id number] [place] [address] 5146 Feb, [facility] [place] [facility] [address] [id number] [place] [address] 2258 Feb, [facility] [place] [facility] [address] [id number] [place] [address] 2791 23 Jan, 2012 [facility] [place] [facility] [address] [id number] [place] [address]- 7553 20 Jan, 2012 [facility] [place] [facility] [address] [id number] [place] [address]- 2294 18 Jan, 2012 [facility] [place] [facility] [address] [id number], [place] [address] 3419 10 Jan, 2012 [facility] [place] [facility] [address] [id number] [place] [address]- 7320 09 Jan, 2012 [facility] [place] [facility] [address] [id number], [place] [address]600 06 Jan, 2012 [facility] [place] [facility] [address] [id number], [place] [address] 3[address] 06 Jan, 2012 [facility] [place] [facility] [address] [id number], [place] [address] 1395 05 Jan, 2012 [facility] [place] [facility] [address] [id number], [place] [address] 2541 05 Jan, 2012 [facility] [place] [facility] [address] [id number], [place] [address] 9575 Dec, [facility] [place] [facility] [address] [id number], [place] [address] 7807 Nov, [facility] [place] [facility] [address] [id number], [place] [address] 0[address] Nov, [facility] [address] [id number] [place] [address] 0025 Nov, [facility] [place] [facility] [address] [id number] [place] [address]- 2873 Nov, [facility] [address] [id number] [place] [address]- 9804 Nov, [facility] [place] [facility] [address] [id number] [place] [address]- 9963 Oct, [facility] [address] [id number] [place] [address]- 0455 Oct, [facility] [address] [id number] [place] [address] 3317 Oct, [facility] [address] [id number] [place] [address]- 4630 Oct, [facility] [place] [facility] [address] [id number] [place] [address] 8866 Oct, [facility] [address] [id number] [place] [address]- 9391 September, [facility] [place] [facility] [address] [id number] [place] [address]- 1485 September, [facility] [address] [id number] [place] [address]- 8014 30 Aug, 2012 [facility] [place] [facility] [address] [id number] [place] [address]- 1859 15 Aug, 2012 [facility] [place] [facility] [address] [id number] [place] [address] 1840 Aug, [facility] [place] [facility] [address] [id number] [place] [address]- 7518 Jul, [facility] [place] [facility] [address] [id number] [place] [address]- 0187 Jul, [facility] [place] [facility] [address] [id number] [place] [address]- 5944 22 Jul, 2012 [facility] [address] [id number] [place] [address]- 0682 21 Jul, 2012 [facility] [place] [facility] [address] [id number] [place] [address]- 3444 20 Jul, 2012 [facility] [place] [facility] [address] [id number] [place] [address]- 1899 19 Jul, 2012 [facility] [place] [facility] [address] [id number] [place] [address]- 5036 19 Jul, 2012 [facility] [place] [facility] [address] [id number] [place] [address]- 4307 18 Jul, 2012 [facility] [place] [facility] [address] [id number] [place] [address]- 6431 14 Jul, 2012 [facility] [place] [facility] [address] [id number] [place] [address]- 8658 18 Jun, 2012 [facility] [place] [facility] [address] [id number] [place] [address]- 7861 08 Jun, 2012 [facility] [place] [facility] [address] [id number] [place] [address]- 4899 06 Jun, 2012 [facility] [place] [facility] [address] [id number] [place] [address]- 6223 May, [facility] [place] [facility] [address] [id number] [place] [address]- 7270 30 May, 2012 [facility] [place] [facility] [address] [id number] [place] [address]- 1982 29 May, 2012 [facility] [place] [facility] [address] [id number] [place] [address]- 4243 May, [facility] [place] [facility] [address] [id number] [place] [address]- 3630 Apr, [facility] [place] [facility] [address] [id number] [place] [address]- 2947 31 Apr, 2012 [facility] [place] [facility] [address] [id number] [place]226 18 Apr, 2012 [facility] [place] [facility] [address] [id number] [place] [address]- 0766 18 Apr, 2012 [facility] [place] [facility] [address] [id number] [place] [address]- 2916 17 Apr, 2012 [facility] [place] [facility] [address] [id number] [place] [address]- 1616 17 Apr, 2012 [facility] [place] [facility] [address] [id number] [place] [address]- 1180 14 Apr, 2012 [facility] [place] [facility] [address] [id number] [place] [address]- 3139 14 Apr, 2012 [facility] [place] [facility] [address] [id number] [place] [address]- 8270 14 Apr, 2012 [facility] [place] [facility] [address] [id number] [place] [address]- 1401 14 Apr, 2012 [facility] [place] [facility] [address] [id number] [place] [address]- 9145 10 Apr, 2012 [facility] [place] [facility] [address] [id number] [place] [address]- 3189 10 Apr, 2012 [facility] [place] [facility] [address] [id number] [place] [address]- 2960 10 Apr, 2012 [facility] [place] [facility] [address] [id number] [place] [address]- 1682 10 Apr, 2012 [facility] [place] [facility] [address] [id number] [place] [address]- 1196 07 Apr, 2012 [facility] [place] [facility] [address] [id number] [place] [address]- 5457 05 Apr, 2012 [facility] [place] [facility] [address] [id number] [place] [address]- 5326 05 Apr, 2012 [facility] [place] [facility] [address] [id number] [place] [address]- 1752 05 Apr, 2012 [facility] [place] [facility] [address] [id number] [place] [address]- 8679 05 Apr, 2012 [facility] [place] [facility] [address] [id number] [place] [address]- 2537 30 Mar, 2012 [facility] [place] [facility] [address] [id number] [place] [address]- 2718 30 Mar, 2012 [facility] [place] [facility] [address] [id number] [place] [address]- 7076 29 Mar, 2012 [facility] [place] [facility] [id number] [place] [address], [place] [address]- 1935 Mar, [facility] [place] [facility] [address] [id number] [place] [address]- 8769 Mar, [facility] [place] [facility] [address] [id number] [place] [address]- 0089 Mar, [facility] [place] [facility] [address] [id number] [place] [address]- 4383 Mar, [facility] [place] [facility] [address] [id number] [place] [address]- 0403 Mar, [facility] [place] [facility] [address] [facility] [id number] [place] [address]- 3254 Mar, [facility] [place] [facility] [address] [id number] [place] [address]- 4252 Mar, [facility] [place] [facility] [address] [id number] [place] [address]- 5908 14 Mar, 2012 [facility] [place] [facility] [address] [id number] [place] [address]- 0669 Mar, [facility] [place] [facility] [address] [facility] [id number] [place] [address]- 2846 Mar, [facility] [place] [facility] [address] [id number] [place] [address]- 6397 Feb, [facility] [place] [facility] [address] [id number] [place] [address]- 4820 Feb, [facility] [place] [facility] [address] [id number] [place] [address]- 8609 Feb, [facility] [place] [facility] [address] [id number] [place] [address]- 6332 Feb, [facility] [place] [facility] [address] [id number] [place] [address]- 5789 Feb, [facility] [place] [facility] [address] [id number] [place] [address]- 1805 Feb, [facility] [place] [facility] [address] [id number] [place] [address]- 6318 Feb, [facility] [place] [facility] [address] [id number] [place] [address]- 4454 Feb, [facility] [place] [facility] [address] [id number] [place] [address]- 6505 Feb, [facility] [place] [facility] [address] [id number] [place] [address]- 6048 Feb, [facility] [place] [facility] [address] [id number] [place] [address]- 5426 Jan, [facility] [place] [facility] [address] [id number] [place] [address]- 5438 Dec, [facility] [place] [facility] [address] [id number], [place] [address]- 9096 Dec, [facility] [place] [facility] [address] [id number] [place] [address]- 8467 Nov, [facility] [place] [facility] [address] [id number] [place] [address]- 3613 Nov, [facility] [place] [facility] [address] [id number], [place] [address]- 3246 Nov, [facility] [place] [facility] [address] [id number], [place] [address]- 7305 Nov, [facility] [address] [id number] [place] [address]- 6256 Oct, [facility] [place] [facility] [address] [id number] [place] [address]- 2969 Oct, [facility] [address] [id number] [place] [address]- 0158 Oct, [facility] [place] [facility] [address] [id number] [place] [address]- 5963 Oct, [facility] [address] [id number] [place] [address]- 3916 September, [facility] [place] [facility] [address] [id number] [place] [address]- 6007 September, [facility] [address] [id number] [place] [address]- 2307 Aug, [facility] [place] [facility] [address] [id number] [place] [address]- 9116 Aug, [facility] [address] [id number] [place] [address]- 9263 Aug, [facility] [place] [facility] [address] [facility] [id number] [place] [address]- 9917 Jul, [facility] [address] [id number] [place] [address]- 6710 Jul, [facility] [place] [facility] [address] [id number] [place] [address]- 9659 Jun, [facility] [place] [facility] [address] [id number] [place] [address]- 1491 Jun, [facility] [place] [facility] [address] [id number] [place] 4727 Jun, [facility] [place] [facility] [address] [facility] [id number] [place] [address]- 1729 Apr, [facility] [place] [facility] [address] [facility] [id number], [place] [address]- 3956 Apr, [facility] [address] [facility] [id number], [place] [address]- 4500 Mar, [facility] [address] [id number], [place] [address]- 3056 Mar, [facility] [address] [facility] [id number], [place] [address]- 1804 Feb, [facility] [address] [facility] [id number], [place] [address]- 8326 Dec, [facility] [address] [facility] [id number][place] [address]40 Nov, IMMUNIZATIONS No Known Immunizations SOCIAL HISTORY Never Assessed REASON FOR VISIT f/u PLAN OF CARE Activity Details Follow Up 6 Weeks Reason: VITAL SIGNS MEDICATIONS Medication Instructions Dosage Frequency Start Date End Date Duration Status Levemir 100 UNIT/ML Active Depakote 250 MG Orally 3 times a day 8h September, Active Lisinopril 10 MG Active immodium Active Rivastigmine 4.6 mg/24 hour 1 Patch 24 hr by Transdermal route 1 time per day Nov, Active Hydrocodone-Acetaminophen 5-325 MG Orally every 8 hours 1 capsule as needed 8h Active Multivitamin Active Eliquis 5 MG Active Effexor 75 MG Orally twice a day 1 tablet with food 12h Active Neurontin 600 mg take 1 tablet (600 mg) by oral route 3 times per day Oct, Active NovoLog 100 UNIT/ML Active Gentamicin Sulfate 0.1 % Active Metoprolol Tartrate 25 MG Orally Twice a day 12h Active Levothroid 100 MCG Active Claritin 10 MG Orally Once a day 24h Active Tradjenta 5 MG Orally Once a day 1 tablet 24h Active Econazole Nitrate 1 % Active BuSpar 15 MG Orally Twice a day 1 tablet 12h Apr, Active Melatonin 3 MG Active Xanax 1 mg Orally every 8 hours as needed 1 tablet Jan, Active Cholecalciferol 2000 UNIT Active Ranitidine 150mg Active RESULTS No Results PROCEDURES Procedure Date Ordered Result Body Site [facility] VISIT ESTABLISHED PATIENT December 08, 2016 INSTRUCTIONS MEDICATIONS ADMINISTERED No Known Medications MEDICAL [...]
--- OUTSIDE RECORDS SUMMARY | 2018-03-05 07:36 | XMS REPORT ---
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 912861002 Problem Vascular dementia, uncomplicated 290.40 Active 30669043 Problem Unspecified episodic mood disorder 296.90 Active 568355976 Problem Vascular dementia with behavioral disturbance F01.51 Active 055819649905670 Problem Major depressive disorder, recurrent, unspecified F33.9 Active 29468582 Problem Diabetes mellitus without mention of complication, type II or unspecified type, not stated as uncontrolled 250.00 Active 207914705 Problem Other and unspecified hyperlipidemia 272.4 Active 79550429 Problem Unspecified mood [affective] disorder F39 Active 83840517 Problem 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 Active 75632659 Problem Diarrhea 787.91 Active 13786042 Problem Nausea with vomiting 787.01 Active 39777569 Problem Unspecified disorder of skin and subcutaneous tissue 709.9 Active 97117403 Problem Unspecified local infection of skin and subcutaneous tissue 686.9 Active 457951783 Problem Pain in joint, lower leg 719.46 Active 157481207 Problem Unspecified hypotension 458.9 Active 38508624 Problem Pain in joint, shoulder region 719.41 Active 729261072 Problem 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 [id number] [place] [id number] May, [facility] [id number] [place] [address]643- [address] May, Major depressive disorder, recurrent, unspecified F33.9 [facility] [id number] [place] [address]- 3899 Feb, Major depressive disorder, recurrent, unspecified F33.9 [facility] [id number] [place] [address] 506577- 7981 Jan, Major depressive disorder, recurrent, unspecified F33.9 [facility] [id number] [place] [address]- 4782 Jan, Major depressive disorder, recurrent, unspecified F33.9 [facility] [id number] [place] [address]- 3905 Jan, Major depressive disorder, recurrent, unspecified F33.9 [facility] [id number] [place] [address]87- 6103 Dec, Major depressive disorder, recurrent, unspecified F33.9 [facility] [id number] [place] [address]27- 4971 Nov, Major depressive disorder, recurrent, unspecified F33.9 [facility] [id number] [place] [address] 9[address]- 2896 Nov, 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 [facility] [id number] [place] [address]28- 0626 Oct, Unspecified mood [affective] disorder F39 ; Major depressive disorder, recurrent, unspecified F33.9 and Vascular dementia with behavioral disturbance F01.51 [facility] [id number] [place] [address] 67252- 0199 May, 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 [facility] [place] [facility] [address] [facility] [id number] [place] [address] 7943 14 Aug, 2014 [facility] [place] [facility] [address] [facility] [id number] [address] 13 Aug, 2014 [facility] [place] [facility] [address] [facility] [id number] [address] 8526 15 Feb, 2013 [facility] [place] [facility] [address] [facility] [id number] [address] 357[address] Feb, [facility] [place] [facility] [address] [facility] [id number] [place] [address]- 9234 Feb, [facility] [place] [facility] [address] [facility] [id number] [address] 1463 Feb, [facility] [place] [facility] [address] [address] 4206 23 Jan, 2012 [facility] [address] [address] 6528 20 Jan, 2012 [facility] [place] [facility] [address] [id number] [address] 2542 18 Sep, 2012 [facility] [place] [facility] [address] [id number] [address] 4447 10 Jan, 2012 [facility] [place] [facility] [address] [id number] [address] 2548 09 Sep, 2012 [facility] [place] [facility] [address] [id number] [address] 2545 06 Sep, 2012 [facility] [place] [facility] [address] [facility] [id number] [address] 2546 06 Sep, 2012 [facility] [place] [facility] [address] [facility] [id number] [address]- 25[address] 05 Sep, 2012 [facility] [place] [facility] [address] [id number] [address]- 2547 05 Sep, 2012 [facility] [place] [facility] [address] [id number] [place] [address] Dec, [facility] [address] [id number] [place] [address]- 6437 Nov, [facility] [place] [facility] [address] [id number] [place] [address]- 3016 Nov, [facility] [address] [id number] [place] [address]- 0626 Nov, [facility] [place] [facility] [address] [id number] [place] [address]- 5125 Nov, [facility] [address] [id number] [place] [address]- 3726 Nov, [facility] [address] [id number] [place] [address]- 9310 Oct, [facility] [address] [id number] [place] [address]- 9731 Oct, [facility] [address] [id number] [place] [address]- 1110 Oct, [facility] [address] [id number] [place] [address]- 0203 Oct, [facility] [address] [id number] [place] [address]- 2771 Oct, [facility] [address] [id number] [place] [address]- 5798 September, [facility] [place] [facility] [address] [id number] [place] [address]- 7630 September, [facility] [place] [facility] [address] [id number] [place] [address]- 5404 Aug, [facility] [place] [facility] [address] [id number] [place] [address]- 0991 15 Aug, 2012 [facility] [place] [facility] [address] [id number] [place] [address]- 5412 Aug, [facility] [place] [facility] [address] [id number] [place] [address]- 0360 28 Jul, 2012 [facility] [address] [id number] [place] [address]- 7478 25 Jul, 2012 [facility] [place] [facility] [address] [id number] [place] [address]- 0663 22 Jul, 2012 [facility] [place] [facility] [address] [id number] [place] [address]- 3599 21 Jul, 2012 [facility] [place] [facility] [address] [id number] [place] [address]- 3587 20 Jul, 2012 [facility] [place] [facility] [address] [id number] [place] [address]- 4665 19 Jul, 2012 [facility] [address] [id number] [place] [address]- 5770 19 Jul, 2012 [facility] [place] [facility] [address] [id number] [place] [address]- 9475 18 Jul, 2012 [facility] [address] [id number] [place] [address]- 2302 14 Jul, 2012 [facility] [place] [facility] [address] [id number] [place] [address]- 3790 18 Jun, 2012 [facility] [place] [facility] [address] [id number] [place] [address]- 9088 08 Jun, 2012 [facility] [place] [facility] [address] [id number] [place] [address]- 6136 06 Jun, 2012 [facility] [place] [facility] [address] [id number] [place] [address]- 5303 May, [facility] [place] [facility] [address] [id number] [place] [address]- 0835 30 May, 2012 [facility] [place] [facility] [address] [id number] [place] [address]- 3822 29 May, 2012 [facility] [place] [facility] [address] [id number] [place] [address]- 6570 28 May, 2012 [facility] [place] [facility] [address] [id number] [place] [address]- 9046 31 Apr, 2012 [facility] [place] [facility] [address] [id number] [place] [address]- 9726 31 Apr, 2012 [facility] [place] [facility] [address] [id number] [place] [address]- 0506 18 Apr, 2012 [facility] [place] [facility] [address] [id number] [place] [address]- 4901 18 Apr, 2012 [facility] [place] [facility] [address] [id number] [place] [address]- 3561 17 Apr, 2012 [facility] [place] [facility] [address] [id number] [place] [address]- 7484 17 Apr, 2012 [facility] [place] [facility] [address] [id number] [place] [address]- 8641 14 Apr, 2012 [facility] [place] [facility] [address] [id number] [place] [address]- 6327 14 Apr, 2012 [facility] [place] [facility] [address] [id number] [place] [address]- 1840 14 Apr, 2012 [facility] [place] [facility] [address] [id number] [place] [address]- 3399 14 Apr, 2012 [facility] [place] [facility] [address] [id number] [place] [address]- 8715 10 Apr, 2012 [facility] [place] [facility] [address] [id number] [place] [address]- 6500 10 Apr, 2012 [facility] [place] [facility] [address] [id number] [place] [address]- 4476 10 Apr, 2012 [facility] [place] [facility] [address] [id number] [place] [address]- 1302 10 Apr, 2012 [facility] [place] [facility] [address] [id number] [place] [address]- 6117 07 Apr, 2012 [facility] [place] [facility] [address] [id number] [place] [address]- 7109 05 Apr, 2012 [facility] [place] [facility] [address] [id number] [place] [address]- 1427 05 Apr, 2012 [facility] [place] [facility] [address] [id number] [place] [address]- 8746 Apr, [facility] [address] [id number] [place] [address]- 0334 05 Apr, 2012 [facility] [place] [facility] [address] [id number] [place] [address]- 4471 30 Mar, 2012 [facility] [place] [facility] [address] [id number] [place] [address]- 4656 30 Mar, 2012 [facility] [place] [facility] [address] [id number] [place] [address]- 8139 29 Mar, 2012 [facility] [place] [facility] [address] [id number] [place] [address]- 2244 Mar, [facility] [place] [facility] [address] [id number] [place] [address]- 8850 Mar, [facility] [place] [facility] [address] [id number] [place] [address]- 6659 Mar, [facility] [place] [facility] [address] [id number] [place] [address]- 5552 Mar, [facility] [place] [facility] [address] [id number] [place] [address]- 5338 Mar, [facility] [place] [facility] [address] [id number] [place] [address]- 3667 Mar, [facility] [place] [facility] [address] [id number] [place] [address]- 0090 14 Mar, 2012 [facility] [place] [facility] [address] [id number] [place] [address]- 6215 14 Mar, 2012 [facility] [place] [facility] [address] [id number] [place] [address]- 1308 Mar, [facility] [place] [facility] [address] [id number] [place] [address]- 4903 Mar, [facility] [place] [facility] [address] [id number] [place] [address]- 9856 Feb, [facility] [place] [facility] [address] [id number] [place] [address]- 4766 Feb, [facility] [place] [facility] [address] [id number] [place] [address]- 5858 Feb, [facility] [place] [facility] [address] [id number] [place] [address] Feb, [facility] [place] [facility] [address] [id number] [place] [address]783 Feb, [facility] [place] [facility] [address] [id number] [place] [address]- 6248 Feb, [facility] [place] [facility] [address] [id number] [address]- 5814 Feb, [facility] [place] [facility] [address] [id number] [place] [address]594 Feb, [facility] [place] [facility] [address] [facility] [id number] [address]- 4262 Feb, [facility] [place] [facility] [address] [id number] [address]- 3483 Feb, [facility] [place] [facility] [address] [id number] [address]- 8137 Jan, [facility] [place] [facility] [address] [id number] [address]- 8719 Dec, [facility] [place] [facility] [address] [id number] [address]- 2036 Dec, [facility] [place] [facility] [address] [facility] [id number] [place] [address]- 6069 Nov, [facility] [place] [facility] [address] [id number] [address]- 2032 Nov, [facility] [address] [id number] [place] [address]- 7269 Nov, [facility] [place] [facility] [address] [id number] [place] [address]- 5323 Nov, [facility] [place] [facility] [address] [id number] [place] [address]- 9543 Oct, [facility] [place] [facility] [address] [id number] [place] [address]- 5177 Oct, [facility] [place] [facility] [address] [id number] [place] [address]- 1170 Oct, [facility] [place] [facility] [address] [id number] [place] [address]- 6978 Oct, [facility] [address] [id number] [address]- 2821 September, [facility] [place] [facility] [address] [id number] [place] [address]- 5886 September, [facility] [address] [id number] [place] [address]- 4902 Aug, [facility] [place] [facility] [address] [facility] [id number] [place] [address]- 3943 Aug, [facility] [place] [facility] [address] [id number] [place] [address]- 3395 Aug, [facility] [place] [facility] [address] [facility] [id number] [address]- 5190 30 Jul, 2011 [facility] [place] [facility] [address] [id number] [place] [address]- 1867 14 Jul, 2011 [facility] [place] [facility] [address] [facility] [id number] [place] [address]- 7176 15 Jun, 2011 [facility] [place] [facility] [address] [facility] [id number] [place] [address]- 6415 03 Jun, 2011 [facility] [place] [facility] [address] [id number] [address]- 5876 Jun, [facility] [address] [address]- 1766 Apr, [facility] [address] [address]- 2546 Apr, [facility] [address] [address] 2546 Mar, [facility] [address] [address] 2546 Mar, [facility] [address] [address]- 3586 Feb, [facility] [address] [address]- 8126 Dec, [facility] [address] [address]- 7386 Nov, IMMUNIZATIONS No Known Immunizations SOCIAL HISTORY Never Assessed REASON FOR VISIT f/u PLAN OF CARE Activity Details Follow Up 4 Weeks Reason:Depression, anxiety VITAL SIGNS MEDICATIONS Unknown Medications RESULTS No Results PROCEDURES Procedure Date Ordered Result Body Site Psychotherapy, patient &/family, 30 minutes, established patient Jan 20, 2017 INSTRUCTIONS MEDICATIONS ADMINISTERED No Known Medications [...]
--- OUTSIDE RECORDS SUMMARY | 2018-03-05 07:37 | XMS REPORT ---
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 102204396 Problem Vascular dementia, uncomplicated 290.40 Active 44430333 Problem Unspecified episodic mood disorder 296.90 Active 965388093 Problem Vascular dementia with behavioral disturbance F01.51 Active [id number] Problem Major depressive disorder, recurrent, unspecified F33.9 Active 64219456 Problem Diabetes mellitus without mention of complication, type II or unspecified type, not stated as uncontrolled 250.00 Active 309699530 Problem Other and unspecified hyperlipidemia 272.4 Active 15237457 Problem Unspecified mood [affective] disorder F39 Active 18300429 Problem 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 Active 67597631 Problem Diarrhea 787.91 Active 16363923 Problem Nausea with vomiting 787.01 Active 06721180 Problem Unspecified disorder of skin and subcutaneous tissue 709.9 Active 44820469 Problem Unspecified local infection of skin and subcutaneous tissue 686.9 Active 553849105 Problem Pain in joint, lower leg 719.46 Active 681707859 Problem Unspecified hypotension 458.9 Active 45531580 Problem Pain in joint, shoulder region 719.41 Active 357289671 Problem 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 Active [id number] ALLERGIES No Information ENCOUNTERS Encounter Location Date Diagnosis [facility] [address] [id number] [id number] Dec, [facility] [address] [id number] [id number] [address] Oct, [facility] [id number] [place] [address] 12808- 2380 September, Major depressive disorder, recurrent, unspecified F33.9 [facility] [id number] [place] [address] [id number] May, [facility] [id number] [place] [address] 621500- 5936 May, Major depressive disorder, recurrent, unspecified F33.9 [facility] [id number] [place] [address] 09487- 8127 Feb, Major depressive disorder, recurrent, unspecified F33.9 [place] [facility] [id number] [place] [address] 576268- 2774 Jan, Major depressive disorder, recurrent, unspecified F33.9 [place] [id number] [place] [address] 219481- 8961 Jan, Major depressive disorder, recurrent, unspecified F33.9 [place] [id number] [place] [address] 35579- 9936 Jan, Major depressive disorder, recurrent, unspecified F33.9 [place] [id number] [place] [address] 42645- 5378 Dec, Major depressive disorder, recurrent, unspecified F33.9 [place] [address] [place] [address] 59076- 5707 Nov, Major depressive disorder, recurrent, unspecified F33.9 [facility] [address] [place] [address] [id number]- 8639 Nov, 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 [place] [id number] [place] [address] 19055- 8799 Oct, Unspecified mood [affective] disorder F39 ; Major depressive disorder, recurrent, unspecified F33.9 and Vascular dementia with behavioral disturbance F01.51 [place] [id number] [place] [address] 04767- 3781 May, 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 [facility] [address] [address] 14 Aug, 2014 [facility] [id number] [place] [address] 74440- 7302 13 Aug, 2014 [facility] [id number] [place] [address] 56550- 3585 15 Feb, 2013 [facility] [id number] [place] [address] 49113- 8731 07 Feb, 2013 [facility] [id number] [place] [address] 36466- 0813 Feb, [facility] [id number] [place] [address] 83259- 1529 Feb, [facility] [id number] [place] [address] 02681- 0183 23 Sep, 2012 [facility] [id number] [place] [address] 80874- 2597 20 Sep, 2012 [facility] [id number] [place] [address] 86123- 7707 18 Sep, 2012 [facility] [id number] [place] [address] 42619- 2784 10 Sep, 2012 [facility] [address] [place] [address] 34363- 7254 09 Sep, 2012 [facility] [address] [id number], [place] [address]- 6031 06 Sep, 2012 [facility] [id number] [place] [address] 62298- 5682 06 Sep, 2012 [facility] [id number] [place] [address] 41558- 1544 05 Sep, 2012 [facility] [id number] [place] [address] 69874- 4856 05 Sep, 2012 [facility] [address] [id number] [place] [address]- 2935 Dec, [facility] [address] [id number] [place] [address]- 1350 Nov, [facility] [place] [facility] [address] [id number] [place] [address]- 2926 Nov, [facility] [place] [facility] [address] [id number] [place] [address]- 3579 Nov, [facility] [place] [facility] [address] [id number] [place] [address]- 0733 Nov, [facility] [place] [facility] [address] [id number] [place] [address]- 1592 Nov, [facility] [place] [facility] [address] [id number] [place] [address]- 7841 Oct, [facility] [place] [facility] [address] [id number] [place] [address]- 1580 Oct, [facility] [place] [facility] [address] [id number] [place] [address]- 6346 Oct, [facility] [place] [facility] [address] [id number] [place] [address]- 4450 Oct, [facility] [place] [facility] [address] [id number] [place] [address]- 9370 Oct, [facility] [place] [facility] [address] [id number] [place] [address]- 0604 September, [facility] [place] [facility] [address] [id number] [place] [address]- 3995 September, [facility] [place] [facility] [address] [id number] [place] [address]- 0212 Aug, [facility] [place] [facility] [address] [id number] [place] [address]- 2216 15 Aug, 2012 [facility] [place] [facility] [address] [id number] [place] [address]- 4724 02 Aug, 2012 [facility] [address] [id number] [place] [address]- 4281 28 Jul, 2012 [facility] [place] [facility] [address] [id number] [place] [address]- 8275 25 Jul, 2012 [facility] [place] [facility] [address] [id number] [place] [address]- 3880 22 Jul, 2012 [facility] [place] [facility] [address] [id number] [place] [address]- 8755 21 Jul, 2012 [facility] [place] [facility] [address] [id number] [place] [address]- 1108 20 Jul, 2012 [facility] [place] [facility] [address] [id number] [place] [address]- 2347 19 Jul, 2012 [facility] [place] [facility] [address] [id number] [place] [address]- 9094 19 Jul, 2012 [facility] [place] [facility] [address] [id number] [place] [address]- 2715 18 Jul, 2012 [facility] [place] [facility] [address] [id number] [place] [address]- 9177 14 Jul, 2012 [facility] [place] [facility] [address] [id number] [place] [address]- 9409 18 Jun, 2012 [facility] [place] [facility] [address] [id number] [place] [address]- 3809 08 Jun, 2012 [facility] [place] [facility] [address] [id number] [place] [address]- 0597 Jun, [facility] [place] [facility] [address] [id number] [place] [address]- 5717 May, [facility] [place] [facility] [address] [id number] [place] [address]- 6768 30 May, 2012 [facility] [place] [facility] [address] [id number] [place] [address]- 4244 May, [facility] [place] [facility] [address] [id number] [place] [address]- 4950 28 May, 2012 [facility] [address] [id number] [place] [address]- 0886 31 Apr, 2012 [facility] [address] [id number] [place] [address]- 3856 31 Apr, 2012 [facility] [address] [id number] [place] [address]- 0217 18 Apr, 2012 [facility] [address] [id number] [place] [address]- 7118 18 Apr, 2012 [facility] [address] [id number] [place] [address]- 5018 17 Apr, 2012 [facility] [address] [id number] [place] [address]- 9009 17 Apr, 2012 [facility] [address] [id number] [place] [address]- 4856 14 Apr, 2012 [facility] [address] [id number] [place] [address]- 9864 14 Apr, 2012 [facility] [address] [id number] [place] [address]- 4533 14 Apr, 2012 [facility] [address] [id number] [place] [address]- 0660 14 Apr, 2012 [facility] [address] [id number] [place] [address]- 0416 10 Apr, 2012 [facility] [address] [id number] [place] [address]- 5852 10 Apr, 2012 [facility] [address] [id number] [place] [address]- 6194 10 Apr, 2012 [facility] [address] [id number] [place] [address]- 9438 10 Apr, 2012 [facility] [address] [id number] [place] [address]- 3797 Apr, [facility] [place] [facility] [address] [id number] [place] [address]- 1037 Apr, [facility] [place] [facility] [address] [id number] [place] [address]- 6671 Apr, [facility] [place] [facility] [address] [id number] [place] [address]- 8139 Apr, [facility] [place] [facility] [address] [id number] [place] [address]- 2496 Apr, [facility] [place] [facility] [address] [id number] [place] [address]- 7808 Mar, [facility] [place] [facility] [address] [id number] [place] [address]- 2880 30 Mar, 2012 [facility] [place] [facility] [address] [id number] [place] [address]- 2705 Mar, [facility] [place] [facility] [address] [id number] [place] [address]- 6813 Mar, [facility] [place] [facility] [address] [id number] [place] [address]- 2651 Mar, [facility] [place] [facility] [address] [id number] [place] [address]- 1391 Mar, [facility] [place] [facility] [address] [id number] [place] [address]- 0744 Mar, [facility] [place] [facility] [address] [id number], [place] [address]- 9759 Mar, [facility] [place] [facility] [address] [id number] [place] [address]- 3766 Mar, [facility] [place] [facility] [address] [id number] [place] [address]- 4722 14 Mar, 2012 [facility] [place] [facility] [address] [id number] [place] [address]- 1062 14 Mar, 2012 [facility] [place] [facility] [address] [id number], [place] [address]- 9814 Mar, [facility] [place] [facility] [address] [id number] [place] [address]- 9308 Mar, [facility] [place] [facility] [address] [id number] [place] [address]- 9302 Feb, [facility] [place] [facility] [address] [id number] [place] [address]- 0868 Feb, [facility] [place] [facility] [address] [id number] [place] [address]- 8879 Feb, [facility] [place] [facility] [address] [id number] [place] [address]- 5595 Feb, [facility] [place] [facility] [address] [id number] [place] 3[address] Feb, [facility] [place] [facility] [address] [id number] [place] [address]- 4896 Feb, [facility] [place] [facility] [address] [id number] [place] [address]- 4026 Feb, [facility] [place] [facility] [address] [id number] [place] [address]- 3119 Feb, [facility] [place] [facility] [address] [id number] [place] [address]- 3647 Feb, [facility] [place] [facility] [address] [id number], [place] [address]- 3210 Feb, [facility] [place] [facility] [address] [id number], [place] [address]- 4516 Jan, [facility] [place] [facility] [address] [id number] [place] [address]- 7380 Dec, [facility] [place] [facility] [address] [id number] [place] [address]- 7664 Dec, [facility] [place] [facility] [address] [id number] [place] [address]- 2899 Nov, [facility] [place] [facility] [address] [id number] [place] [address]- 2192 Nov, [facility] [place] [facility] [address] [id number] [place] [address]- 9394 Nov, [facility] [place] [facility] [address] [id number] [place] [address] 2546 Nov, [facility] [place] [facility] [address] [id number] [place] [address]- 9429 Oct, [facility] [place] [facility] [address] [id number] [place] [address]- 0275 Oct, [facility] [place] [facility] [address] [id number] [place] [address]- 4907 Oct, [facility] [place] [facility] [address] [id number] [place] [address]- 2919 Oct, [facility] [place] [facility] [address] [id number] [place] [address]- 0241 September, [facility] [place] [facility] [address] [id number] [place] [address]- 7796 September, [facility] [place] [facility] [address] [id number] [place] [address]- 4748 Aug, [facility] [place] [facility] [address] [id number] [place] [address]- 1057 Aug, [facility] [place] [facility] [address] [id number] [place] [address]- 7070 Aug, [facility] [place] [facility] [address] [id number] [place] [address]- 6367 30 Jul, 2011 [facility] [place] [facility] [address] [id number] [place] [address]- 0636 14 Jul, 2011 [facility] [place] [facility] [address] [id number] [place] [address]- 1036 15 Jun, 2011 [facility] [place] [facility] [address] [id number] [place] [address]- 2346 Jun, [facility] [address] [id number] [address]- 2546 Jun, [facility] [address], [place] [address]- 2546 Apr, [facility] [address], [place] [address]- 2546 Apr, [facility] [address], [place] [address]- 2546 Mar, [facility] [address], [place] [address]- 2546 Mar, [facility] [address], [place] [address] 2546 Feb, [facility] [address], [place] [address] 2546 Dec, [facility] [address], [place] [address]- 0896 Nov, IMMUNIZATIONS No Known Immunizations SOCIAL HISTORY Never Assessed REASON FOR VISIT Medication question PLAN OF CARE VITAL SIGNS MEDICATIONS Unknown Medications RESULTS No Results PROCEDURES No Known procedures INSTRUCTIONS MEDICATIONS ADMINISTERED No Known Medications MEDICAL [...]
--- OUTSIDE RECORDS SUMMARY | 2018-03-05 07:37 | XMS REPORT ---
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 318975132 Problem Vascular dementia, uncomplicated 290.40 Active 79383563 Problem Unspecified episodic mood disorder 296.90 Active 194782152 Problem Vascular dementia with behavioral disturbance F01.51 Active 116314101245047 Problem Major depressive disorder, recurrent, unspecified F33.9 Active 80526608 Problem Diabetes mellitus without mention of complication, type II or unspecified type, not stated as uncontrolled 250.00 Active 646620616 Problem Other and unspecified hyperlipidemia 272.4 Active 16864327 Problem Unspecified mood [affective] disorder F39 Active 80288546 Problem 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 Active 00131272 Problem Diarrhea 787.91 Active 99140938 Problem Nausea with vomiting 787.01 Active 19575949 Problem Unspecified disorder of skin and subcutaneous tissue 709.9 Active 45822848 Problem Unspecified local infection of skin and subcutaneous tissue 686.9 Active 610621867 Problem Pain in joint, lower leg 719.46 Active 504073067 Problem Unspecified hypotension 458.9 Active 99856858 Problem Pain in joint, shoulder region 719.41 Active 662665603 Problem 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 Active 800473069 ALLERGIES Substance Reaction Event Type Date Status Morphine Unknown Drug Allergy Dec, Active Zocor 40 Mg Tablet BLOODY DIARRHEA Non Drug Allergy Dec, Active ENCOUNTERS Encounter Location Date Diagnosis [facility] [address] [facility] [id number] [address] September, [facility] [address] [facility] [id number] [id number] May, [place] [id number] [place] [address] May, Major depressive disorder, recurrent, unspecified F33.9 [place] [id number] [place] [address]371- 3376 Feb, Major depressive disorder, recurrent, unspecified F33.9 [place] [address] [place] [id number] [place] [address]16- 4263 Jan, Major depressive disorder, recurrent, unspecified F33.9 [place] [address] [place] [id number] [place] [address]8627- 9863 Jan, Major depressive disorder, recurrent, unspecified F33.9 [place] [id number] [place] [address]34- 9546 Jan, Major depressive disorder, recurrent, unspecified F33.9 [place] [id number] [place] [address] 24128- 1673 Dec, Major depressive disorder, recurrent, unspecified F33.9 [place] [address] [place] [id number] [place] [address]94- 9192 Nov, Major depressive disorder, recurrent, unspecified F33.9 [place] [id number] [place] [address] 10470- 0168 Nov, 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 [place] [address] [place] [id number] [place] [address] 24278- 1126 Oct, Unspecified mood [affective] disorder F39 ; Major depressive disorder, recurrent, unspecified F33.9 and Vascular dementia with behavioral disturbance F01.51 [place] [address] [place] [address] 45763- 6127 May, 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 [place] [address] [place] [address]- [address]478 Aug, [facility] [address] [id number] [place] [address] 13 Aug, 2014 [facility] [address] [id number] [place] [address]- 5080 15 Feb, 2013 [facility] [place] [facility] [address] [id number] [place] [address]- 5977 07 Feb, 2013 [facility] [place] [facility] [address] [id number] [place] [address]- 3985 Feb, [facility] [address] [id number] [place] [address]- 4413 Feb, [facility] [place] [facility] [address] [id number] [place] [address]- 3323 23 Jan, 2012 [facility] [address] [id number] [place] [address]- 2365 20 Jan, 2012 [facility] [address] [id number] [place] [address]- 9700 18 Jan, 2012 [facility] [address] [id number] [place] [address]- 0346 10 Jan, 2012 [facility] [place] [facility] [address] [id number] [place] [address]- 0460 09 Jan, 2012 [facility] [place] [facility] [address] [id number] [place] [address]- 7431 06 Sep, 2012 [facility] [place] [facility] [address] [id number], [place] [address] 06 Sep, 2012 [facility] [place] [facility] [address] [id number] [place] [address]- 5589 05 Sep, 2012 [facility] [place] [facility] [address] [id number] [place] [address]- 2547 05 Sep, 2012 [facility] [place] [facility] [address] [id number] [place] [address]- 7959 Dec, [facility] [place] [facility] [address] [id number], [place] [address] 36[address] Nov, [facility] [address] [id number] [place] [address]- 1060 Nov, [facility] [place] [facility] [address] [id number] [place] [address]- 2028 Nov, [facility] [place] [facility] [address] [id number] [place] [address]- 3840 Nov, [facility] [place] [facility] [address] [id number] [place] [address]- 2398 Nov, [facility] [place] [facility] [address] [id number] [place] [address]- 4793 Oct, [facility] [place] [facility] [address] [id number] [place] [address]- 7057 Oct, [facility] [place] [facility] [address] [id number] [place] [address]- 1765 Oct, [facility] [place] [facility] [address] [id number] [place] [address]- 1248 Oct, [facility] [place] [facility] [address] [id number] [place] [address]- 4701 Oct, [facility] [place] [facility] [address] [id number] [place] [address]- 8962 September, [facility] [place] [facility] [address] [id number] [place] [address]- [address] September, [facility] [place] [facility] [address] [id number] [place] [address]- 9540 30 Aug, 2012 [facility] [place] [facility] [address] [id number] [place] [address]- 4193 15 Aug, 2012 [facility] [place] [facility] [address] [id number] [place] [address] Aug, [facility] [place] [facility] [address] [id number] [place] [address]- 5464 Jul, [facility] [place] [facility] [address] [id number] [place] [address]- 9969 25 Jul, 2012 [facility] [address] [id number] [place] [address]- 6481 22 Jul, 2012 [facility] [address] [id number] [place] [address]- 9838 21 Jul, 2012 [facility] [address] [id number] [place] [address]- 7956 20 Jul, 2012 [facility] [address] [id number] [place] [address]- 2362 19 Jul, 2012 [facility] [address] [id number] [place] [address]- 5310 19 Jul, 2012 [facility] [address] [id number] [place] [address]- 9381 18 Jul, 2012 [facility] [address] [id number] [place] [address]- 3457 14 Jul, 2012 [facility] [address] [id number] [place] [address]- 1271 18 Jun, 2012 [facility] [address] [id number] [place] [address]- 3784 08 Jun, 2012 [facility] [address] [id number] [place] [address]- 4639 06 Jun, 2012 [facility] [address] [id number] [place] [address]- 0066 May, [facility] [address] [id number] [place] [address]- 9812 30 May, 2012 [facility] [address] [id number] [place] [address]- 0304 29 May, 2012 [facility] [address] [id number] [place] [address]- 4617 May, [facility] [address] [id number] [place] [address]- 2502 31 Apr, 2012 [facility] [place] [facility] [address] [id number] [place] [address]- 1209 31 Apr, 2012 [facility] [place] [facility] [address] [id number] [place] [address]- 6006 18 Apr, 2012 [facility] [place] [facility] [address] [id number] [place] [address]- 3157 18 Apr, 2012 [facility] [place] [facility] [address] [id number] [place] [address]- 6345 17 Apr, 2012 [facility] [place] [facility] [address] [id number] [place] [address]- 0816 17 Apr, 2012 [facility] [place] [facility] [address] [id number] [place] [address]- 2484 14 Apr, 2012 [facility] [place] [facility] [address] [id number] [place] [address]- 7059 14 Apr, 2012 [facility] [place] [facility] [address] [id number] [place] [address]- 4744 14 Apr, 2012 [facility] [place] [facility] [address] [id number] [place] [address]- 6180 14 Apr, 2012 [facility] [place] [facility] [address] [id number] [place] [address]- 3360 10 Apr, 2012 [facility] [place] [facility] [address] [id number] [place] [address]- 1726 10 Apr, 2012 [facility] [place] [facility] [address] [id number] [place] [address]- 9381 10 Apr, 2012 [facility] [place] [facility] [address] [id number] [place] [address]- 8401 10 Apr, 2012 [facility] [place] [facility] [address] [id number] [place] [address]- 6003 07 Apr, 2012 [facility] [place] [facility] [address] [id number] [place] [address]- 4872 05 Apr, 2012 [facility] [place] [facility] [address] [id number] [place] [address]- 9799 05 Apr, 2012 [facility] [place] [facility] [address] [id number] [place] [address]- 5711 05 Apr, 2012 [facility] [place] [facility] [address] [id number] [place] [address]- 6576 Apr, [facility] [place] [facility] [address] [id number] [place] [address]- 8754 30 Mar, 2012 [facility] [place] [facility] [address] [id number] [place] [address]- 4236 30 Mar, 2012 [facility] [place] [facility] [address] [id number] [place] [address]- 1681 29 Mar, 2012 [facility] [place] [facility] [address] [id number] [place] [address]- 6294 Mar, [facility] [place] [facility] [address] [id number] [place] [address]- 6132 Mar, [facility] [place] [facility] [address] [id number] [place] [address]- 3773 Mar, [facility] [place] [facility] [address] [id number] [place] [address]- 5344 Mar, [facility] [place] [facility] [address] [facility] [id number] [place] [address]- 1148 Mar, [facility] [place] [facility] [address] [id number] [place] [address]- 6989 Mar, [facility] [place] [facility] [address] [id number], [place] [address]- 1498 Mar, [facility] [place] [facility] [address] [id number] [place] [address]- 8674 Mar, [facility] [place] [facility] [address] [facility] [id number] [place] [address]- 6639 Mar, [facility] [place] [facility] [address] [id number], [place] [address]- 3624 Mar, [facility] [place] [facility] [address] [id number] [place] [address]- 5246 Feb, [facility] [place] [facility] [address] [id number] [place] [address]- 2985 Feb, [facility] [place] [facility] [address] [id number] [place] [address]- 0977 Feb, [facility] [place] [facility] [address] [id number] [place] [address]- 6236 Feb, [facility] [place] [facility] [address] [id number] [place] [address]- 6322 Feb, [facility] [place] [facility] [address] [id number] [place] [address]- 8775 Feb, [facility] [place] [facility] [address] [id number] [place] [address]- 4850 Feb, [facility] [place] [facility] [address] [id number] [place] [address]- 0792 Feb, [facility] [place] [facility] [address] [id number] [place] [address]- 7724 Feb, [facility] [place] [facility] [address] [id number] [place] [address]- 3468 Feb, [facility] [place] [facility] [address] [id number] [place] [address]- 6915 Jan, [facility] [place] [facility] [address] [id number] [place] [address]- 5649 Dec, [facility] [place] [facility] [address] [id number] [place] [address]- 0886 Dec, [facility] [place] [facility] [address] [id number] [place] [address]- 4004 Nov, [facility] [place] [facility] [address] [id number] [place] [address]- 1480 Nov, [facility] [place] [facility] [address] [id number] [place] [address]- 8496 Nov, [facility] [place] [facility] [address] [id number] [place] [address]- 7312 Nov, [facility] [place] [facility] [address] [id number] [place] [address]- 9556 Oct, [facility] [place] [facility] [address] [id number] [place] [address]- 4506 Oct, [facility] [place] [facility] [address] [id number] [place] [address]- 4908 Oct, [facility] [place] [facility] [address] [id number] [place] [address]- 7528 Oct, [facility] [place] [facility] [address] [id number] [place] [address]- 4435 September, [facility] [place] [facility] [address] [id number] [place] [address]- 9208 September, [facility] [place] [facility] [address] [id number] [place] [address]- 2533 Aug, [facility] [place] [facility] [address] [id number] [place] [address]- 0499 Aug, [facility] [place] [facility] [address] [id number] [place] [address]- 0406 Aug, [facility] [place] [facility] [address] [id number] [place] [address]- 6339 Jul, [facility] [place] [facility] [address] [id number] [place] [address]- 4241 Jul, [facility] [place] [facility] [address] [id number] [place] [address]- 1251 15 Jun, 2011 [facility] [place] [facility] [address] [id number] [place] [address]- 2124 Jun, [facility] [place] [facility] [address] [id number] [place] [address]- 6657 Jun, [facility] [place] [facility] [address] [id number] [address]- 9279 Apr, [facility] [address] [id number], [place] [address]- 3615 Apr, [facility] [address] [id number], [place] [address]- 9339 Mar, [facility] [address] [id number], [place] [address]- 8552 Mar, [facility] [address] [address]- 7843 Feb, [facility] [address] [address]- 9428 Dec, [facility] [address] [id number], [place] [address]- 9035 Nov, IMMUNIZATIONS No Known Immunizations SOCIAL HISTORY Never Assessed REASON FOR VISIT f/u PLAN OF CARE Activity Details Follow Up 2 Weeks Reason:Depression VITAL SIGNS MEDICATIONS Unknown Medications RESULTS No Results PROCEDURES Procedure Date Ordered Result Body Site Psychotherapy, patient &/family, 60 minutes, established patient Dec 13, 2016 INSTRUCTIONS MEDICATIONS ADMINISTERED No Known Medications [...]
--- OUTSIDE RECORDS SUMMARY | 2018-03-05 07:37 | XMS REPORT ---
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 539718344 Problem Vascular dementia, uncomplicated 290.40 Active 94085966 Problem Unspecified episodic mood disorder 296.90 Active 275297221 Problem Vascular dementia with behavioral disturbance F01.51 Active [id number] Problem Major depressive disorder, recurrent, unspecified F33.9 Active 03624428 Problem Diabetes mellitus without mention of complication, type II or unspecified type, not stated as uncontrolled 250.00 Active 557490533 Problem Other and unspecified hyperlipidemia 272.4 Active 87651192 Problem Unspecified mood [affective] disorder F39 Active 73713453 Problem 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 Active 10568964 Problem Diarrhea 787.91 Active 83412399 Problem Nausea with vomiting 787.01 Active 75347608 Problem Unspecified disorder of skin and subcutaneous tissue 709.9 Active 18509502 Problem Unspecified local infection of skin and subcutaneous tissue 686.9 Active 834228264 Problem Pain in joint, lower leg 719.46 Active 976497322 Problem Unspecified hypotension 458.9 Active 38666385 Problem Pain in joint, shoulder region 719.41 Active 999748390 Problem 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 Active 460893179 ALLERGIES Substance Reaction Event Type Date Status Morphine Unknown Drug Allergy Jan, Active Zocor 40 Mg Tablet BLOODY DIARRHEA Non Drug Allergy Jan, Active ENCOUNTERS Encounter Location Date Diagnosis [facility] [address] [facility] [id number] [place] [address] September, [facility] [id number] [id number] September, [facility] [id number] [place] [id number] May, [facility] [id number] [place] [address]- [address]142 May, Major depressive disorder, recurrent, unspecified F33.9 [facility] [id number] [place] [address]- [address]377 Feb, Major depressive disorder, recurrent, unspecified F33.9 [facility] [id number] [place] [address] 734542- 1844 Jan, Major depressive disorder, recurrent, unspecified F33.9 [facility] [id number] [place] [address]- 3832 Jan, Major depressive disorder, recurrent, unspecified F33.9 [facility] [id number] [place] [address] 21324- 6539 Jan, Major depressive disorder, recurrent, unspecified F33.9 [facility] [id number] [place] [address] 97238- 0601 Dec, Major depressive disorder, recurrent, unspecified F33.9 [facility] [id number] [place] [address] 02606- 5507 Nov, Major depressive disorder, recurrent, unspecified F33.9 [facility] [id number] [place] [address] 84903- 3619 Nov, 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 [facility] [id number] [place] [address] 57912- 0835 Oct, Unspecified mood [affective] disorder F39 ; Major depressive disorder, recurrent, unspecified F33.9 and Vascular dementia with behavioral disturbance F01.51 [facility] [id number] [place] [address] 99253- 7360 May, 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 [facility] [place] [facility] [address] [facility] [id number] [place] [address]- 74[address] 14 Aug, 2014 [facility] [place] [facility] [address] [facility] [id number], [place] [address] 13 Aug, 2014 [facility] [place] [facility] [address] [facility] [id number], [place] [address] 2[address] 15 Feb, 2013 [facility] [place] [facility] [address] [facility] [id number], [place] [address] Feb, [facility] [place] [facility] [address] [facility] [id number] [place] [address]- 5464 Feb, [facility] [place] [facility] [address] [facility] [id number], [place] [address] Feb, [facility] [place] [facility] [address], [place] [address] 7541 23 Jan, 2012 [facility] [address], [place] [address] 3928 20 Jan, 2012 [facility] [place] [facility] [id number], [place] [address] 2543 18 Sep, 2012 [facility] [place] [facility] [address] [id number], [place] [address]99 10 Jan, 2012 [facility] [place] [facility] [address] [id number], [place] [address] 2544 09 Sep, 2012 [facility] [place] [facility] [address] [id number], [place] [address] 2547 06 Sep, 2012 [facility] [place] [facility] [address] [facility] [id number], [place] [address] 2546 06 Sep, 2012 [facility] [place] [facility] [address] [facility] [id number], [place] [address]- 254 05 Sep, 2012 [facility] [place] [facility] [address] [id number], [place] [address] 2541 05 Sep, 2012 [facility] [place] [facility] [address] [id number] [place] [address] Dec, [facility] [address] [id number] [place] [address]- 7950 Nov, [facility] [place] [facility] [address] [id number] [place] [address]- 9069 Nov, [facility] [address] [id number] [place] [address]- 9428 Nov, [facility] [place] [facility] [address] [id number] [place] [address]- 9000 Nov, [facility] [address] [id number] [place] [address]- 4988 Nov, [facility] [address] [id number] [place] [address]- 7549 Oct, [facility] [address] [id number] [place] [address]- 2726 Oct, [facility] [address] [id number] [place] [address]- 6815 Oct, [facility] [address] [id number] [place] [address]- 9408 Oct, [facility] [address] [id number] [place] [address]- 2164 Oct, [facility] [address] [id number] [place] [address]- 6157 September, [facility] [place] [facility] [address] [id number] [place] [address]- 4895 September, [facility] [place] [facility] [address] [id number] [place] [address]- 2348 Aug, [facility] [place] [facility] [address] [id number] [place] [address]- 2928 15 Aug, 2012 [facility] [place] [facility] [address] [id number] [place] [address]- 5439 Aug, [facility] [place] [facility] [address] [id number] [place] [address]- 2222 28 Jul, 2012 [facility] [address] [id number] [place] [address]- 2650 25 Jul, 2012 [facility] [place] [facility] [address] [id number] [place] [address]- 1829 22 Jul, 2012 [facility] [place] [facility] [address] [id number] [place] [address]- 0385 21 Jul, 2012 [facility] [place] [facility] [address] [id number] [place] [address]- 8629 20 Jul, 2012 [facility] [place] [facility] [address] [id number] [place] [address]- 6045 19 Jul, 2012 [facility] [address] [id number] [place] [address]- 3695 19 Jul, 2012 [facility] [place] [facility] [address] [id number] [place] [address]- 1997 18 Jul, 2012 [facility] [address] [id number] [place] [address]- 4548 14 Jul, 2012 [facility] [place] [facility] [address] [id number] [place] [address]- 4060 18 Jun, 2012 [facility] [place] [facility] [address] [id number] [place] [address]- 0504 08 Jun, 2012 [facility] [place] [facility] [address] [id number] [place] [address]- 1448 06 Jun, 2012 [facility] [place] [facility] [address] [id number] [place] [address]- 5022 May, [facility] [place] [facility] [address] [id number] [place] [address]- 8970 30 May, 2012 [facility] [place] [facility] [address] [id number] [place] [address]- 1481 29 May, 2012 [facility] [place] [facility] [address] [id number] [place] [address]- 9773 28 May, 2012 [facility] [place] [facility] [address] [id number] [place] [address]- 1476 31 Apr, 2012 [facility] [place] [facility] [address] [id number] [place] [address]- 6796 31 Apr, 2012 [facility] [place] [facility] [address] [id number] [place] [address]- 0216 18 Apr, 2012 [facility] [place] [facility] [address] [id number] [place] [address]- 3969 18 Apr, 2012 [facility] [place] [facility] [address] [id number] [place] [address]- 7819 17 Apr, 2012 [facility] [place] [facility] [address] [id number] [place] [address]- 9810 17 Apr, 2012 [facility] [place] [facility] [address] [id number] [place] [address]- 5041 14 Apr, 2012 [facility] [place] [facility] [address] [id number] [place] [address]- 3872 14 Apr, 2012 [facility] [place] [facility] [address] [id number] [place] [address]- 3334 14 Apr, 2012 [facility] [place] [facility] [address] [id number] [place] [address]- 1602 14 Apr, 2012 [facility] [place] [facility] [address] [id number] [place] [address]- 6970 10 Apr, 2012 [facility] [place] [facility] [address] [id number] [place] [address]- 0811 10 Apr, 2012 [facility] [place] [facility] [address] [id number] [place] [address]- 5896 10 Apr, 2012 [facility] [place] [facility] [address] [id number] [place] [address]- 0222 10 Apr, 2012 [facility] [place] [facility] [address] [id number] [place] [address]- 4446 07 Apr, 2012 [facility] [place] [facility] [address] [id number] [place] [address]- 8923 05 Apr, 2012 [facility] [place] [facility] [address] [id number] [place] [address]- 9422 05 Apr, 2012 [facility] [place] [facility] [address] [id number] [place] [address]- 2276 Apr, [facility] [address] [id number] [place] [address]- 3583 05 Apr, 2012 [facility] [place] [facility] [address] [id number] [place] [address]- 3574 30 Mar, 2012 [facility] [place] [facility] [address] [id number] [place] [address]- 2264 30 Mar, 2012 [facility] [place] [facility] [address] [id number] [place] [address]- 2700 29 Mar, 2012 [facility] [place] [facility] [address] [id number] [place] [address]- 8511 Mar, [facility] [place] [facility] [address] [id number] [place] [address]- 5710 Mar, [facility] [place] [facility] [address] [id number] [place] [address]- 0011 Mar, [facility] [place] [facility] [address] [id number] [place] [address]- 2305 Mar, [facility] [place] [facility] [address] [id number] [place] [address]- 5664 Mar, [facility] [place] [facility] [address] [id number] [place] [address]- 4511 Mar, [facility] [place] [facility] [address] [id number] [place] [address]- 5224 14 Mar, 2012 [facility] [place] [facility] [address] [id number] [place] [address]- 1827 14 Mar, 2012 [facility] [place] [facility] [address] [id number] [place] [address]- 0655 Mar, [facility] [place] [facility] [address] [id number] [place] [address]- 8083 Mar, [facility] [place] [facility] [address] [id number] [place] [address]- 7585 Feb, [facility] [place] [facility] [address] [id number] [place] [address]- 2440 Feb, [facility] [place] [facility] [address] [id number] [place] [address]- 6104 Feb, [facility] [place] [facility] [address] [id number] [place] 1196 Feb, [facility] [place] [facility] [address] [id number] [place] 5706 Feb, [facility] [place] [facility] [address] [id number] [place] [address]- 5791 Feb, [facility] [place] [facility] [address] [id number], [place] [address]- 3279 Feb, [facility] [place] [facility] [address] [id number] [place] [address]78 Feb, [facility] [place] [facility] [address] [facility] [id number], [place] [address]- 9832 Feb, [facility] [place] [facility] [address] [id number], [place] [address]- 7125 Feb, [facility] [place] [facility] [address] [id number], [place] [address]- 3232 Jan, [facility] [place] [facility] [address] [id number], [place] [address]- 1075 Dec, [facility] [place] [facility] [address] [id number], [place] [address]- 8896 Dec, [facility] [place] [facility] [address] [facility] [id number], [place] [address]- 1238 Nov, [facility] [place] [facility] [address] [id number], [place] [address]- 0052 Nov, [facility] [address] [id number] [place] [address]- 9625 Nov, [facility] [place] [facility] [address] [id number] [place] [address]- 4998 Nov, [facility] [place] [facility] [address] [id number] [place] [address]- 8424 Oct, [facility] [place] [facility] [address] [id number] [place] [address]- 3161 Oct, [facility] [place] [facility] [address] [id number] [place] [address]- 6769 Oct, [facility] [place] [facility] [address] [id number] [place] [address]- 4603 Oct, [facility] [address] [id number] [place] [address]- 5912 September, [facility] [place] [facility] [address] [id number] [place] [address]- 2034 September, [facility] [address] [id number] [place] [address]- 3031 Aug, [facility] [place] [facility] [address] [facility] [id number] [place] [address]- 7395 Aug, [facility] [place] [facility] [address] [id number] [place] [address]- 9809 Aug, [facility] [place] [facility] [address] [facility] [id number], [place] [address]- 4394 30 Jul, 2011 [facility] [place] [facility] [address] [id number] [place] [address]- 3012 14 Jul, 2011 [facility] [place] [facility] [address] [facility] [id number] [place] [address]- 0258 15 Jun, 2011 [facility] [place] [facility] [address] [facility] [id number] [place] [address]- 2997 03 Jun, 2011 [facility] [place] [facility] [address] [id number], [place] [address] 2546 Jun, [facility] [address], [place] [address] 2546 Apr, [facility] [address], [place] [address]- 2546 Apr, [facility] [address], [place] [address] 2546 Mar, [facility] [address], [place] [address] 2546 Mar, [facility] [address], [place] [address]- 1866 Feb, [facility] [address], [place] [address]- [address] Dec, [facility] [address], [place] [address]- 4546 Nov, IMMUNIZATIONS No Known Immunizations SOCIAL HISTORY Never Assessed REASON FOR VISIT f/u PLAN OF CARE Activity Details Follow Up not rescheduled Reason:Depression VITAL SIGNS MEDICATIONS Unknown Medications RESULTS No Results PROCEDURES Procedure Date Ordered Result Body Site Psychotherapy, patient &/family, 30 minutes, established patient Feb 06, 2017 INSTRUCTIONS MEDICATIONS ADMINISTERED No Known Medications [...]
--- OUTSIDE RECORDS SUMMARY | 2018-03-05 07:38 | XMS REPORT ---
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 336813750 Problem Vascular dementia, uncomplicated 290.40 Active 34577362 Problem Unspecified episodic mood disorder 296.90 Active 926217878 Problem Vascular dementia with behavioral disturbance F01.51 Active [id number] Problem Major depressive disorder, recurrent, unspecified F33.9 Active 81362235 Problem Diabetes mellitus without mention of complication, type II or unspecified type, not stated as uncontrolled 250.00 Active 608504721 Problem Other and unspecified hyperlipidemia 272.4 Active 19472432 Problem Unspecified mood [affective] disorder F39 Active 76480237 Problem 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 Active 96785242 Problem Diarrhea 787.91 Active 35929294 Problem Nausea with vomiting 787.01 Active 33449165 Problem Unspecified disorder of skin and subcutaneous tissue 709.9 Active 65937825 Problem Unspecified local infection of skin and subcutaneous tissue 686.9 Active 128683026 Problem Pain in joint, lower leg 719.46 Active 838249842 Problem Unspecified hypotension 458.9 Active 08076281 Problem Pain in joint, shoulder region 719.41 Active 430488338 Problem 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 Active [id number] ALLERGIES No Information ENCOUNTERS Encounter Location Date Diagnosis [facility] [address] [facility] [id number], [place] [address] September, [facility] [address] [id number] [id number] May, [facility] [address] [facility] [id number] [place] [address]45- [address] May, Major depressive disorder, recurrent, unspecified F33.9 [place] [id number] [place] [address] 88452- 9836 Feb, Major depressive disorder, recurrent, unspecified F33.9 [place] [id number] [place] [address] 41156- 3079 Jan, Major depressive disorder, recurrent, unspecified F33.9 [place] [id number] [place] [address] 74402- 8208 Jan, Major depressive disorder, recurrent, unspecified F33.9 [place] [id number] [place] [address] 15813- 1277 Jan, Major depressive disorder, recurrent, unspecified F33.9 [place] [id number] [place] [address] 29938- 1327 Dec, Major depressive disorder, recurrent, unspecified F33.9 [place] [id number] [place] [address] 90631- 7819 Nov, Major depressive disorder, recurrent, unspecified F33.9 [place] [id number] [place] [address] 23884- 8099 Nov, 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 [place] [id number] [place] [address] 40621- 1600 Oct, Unspecified mood [affective] disorder F39 ; Major depressive disorder, recurrent, unspecified F33.9 and Vascular dementia with behavioral disturbance F01.51 [place] [id number] [place] [address] 06538- 5010 May, 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 [place] [id number] [place] [address] 46506- 6269 Aug, [place] [id number] [place] [address] 87989- 9749 Aug, [facility] [address] [id number] [place] [address] 9061 15 Feb, 2013 [facility] [place] [facility] [address] [id number] [place] [address] 2968 Feb, [facility] [place] [facility] [address] [id number] [place] [address]- 9285 Feb, [facility] [place] [facility] [address] [id number] [place] [address]- 2938 Feb, [facility] [place] [facility] [address] [id number] [place] [address]- 2675 23 Jan, 2012 [facility] [place] [facility] [address] [id number] [place] [address]- 8312 20 Jan, 2012 [facility] [place] [facility] [address] [id number] [place] [address]- 7804 18 Jan, 2012 [facility] [place] [facility] [address] [id number], [place] [address] 3542 10 Jan, 2012 [facility] [place] [facility] [address] [id number] [place] [address]- 0246 09 Jan, 2012 [facility] [place] [facility] [address] [id number], [place] [address] 5773 06 Jan, 2012 [facility] [place] [facility] [address] [id number], [place] [address] 5427 06 Jan, 2012 [facility] [place] [facility] [address] [id number], [place] [address] 6721 05 Jan, 2012 [facility] [place] [facility] [address] [id number], [place] [address] 2540 05 Jan, 2012 [facility] [place] [facility] [address] [id number], [place] [address] 9771 Dec, [facility] [place] [facility] [address] [id number], [place] [address] Nov, [facility] [place] [facility] [address] [id number], [place] [address] 7360 Nov, [facility] [address] [id number] [place] [address]- 2145 Nov, [facility] [place] [facility] [address] [id number] [place] [address]- 5366 Nov, [facility] [address] [id number] [place] [address]- 2561 Nov, [facility] [place] [facility] [address] [id number] [place] [address]- 7268 Oct, [facility] [address] [id number] [place] [address]- 4920 Oct, [facility] [address] [id number] [place] [address]- 9368 Oct, [facility] [address] [id number] [place] [address]- 7858 Oct, [facility] [place] [facility] [address] [id number] [place] [address]- 5049 Oct, [facility] [address] [id number] [place] [address]- 6775 September, [facility] [place] [facility] [address] [id number] [place] [address]- 9034 September, [facility] [address] [id number] [place] [address]- 3029 30 Aug, 2012 [facility] [place] [facility] [address] [id number] [place] [address]- 1346 15 Aug, 2012 [facility] [place] [facility] [address] [id number] [place] [address]- 5112 Aug, [facility] [place] [facility] [address] [id number] [place] [address]- 4204 Jul, [facility] [place] [facility] [address] [id number] [place] [address]- 2738 Jul, [facility] [place] [facility] [address] [id number] [place] [address]- 7658 22 Jul, 2012 [facility] [address] [id number] [place] [address]- 3795 21 Jul, 2012 [facility] [place] [facility] [address] [id number] [place] [address]- 5310 20 Jul, 2012 [facility] [place] [facility] [address] [id number] [place] [address]- 8235 19 Jul, 2012 [facility] [place] [facility] [address] [id number] [place] [address]- 7120 19 Jul, 2012 [facility] [place] [facility] [address] [id number] [place] [address]- 1869 18 Jul, 2012 [facility] [place] [facility] [address] [id number] [place] [address]- 7915 14 Jul, 2012 [facility] [place] [facility] [address] [id number] [place] [address]- 9936 18 Jun, 2012 [facility] [place] [facility] [address] [id number] [place] [address]- 6534 08 Jun, 2012 [facility] [place] [facility] [address] [id number] [place] [address]- 6670 06 Jun, 2012 [facility] [place] [facility] [address] [id number] [place] [address]- 2191 May, [facility] [place] [facility] [address] [id number] [place] [address]- 5494 30 May, 2012 [facility] [place] [facility] [address] [id number] [place] [address]- 0484 29 May, 2012 [facility] [place] [facility] [address] [id number] [place] [address]- 6145 May, [facility] [place] [facility] [address] [id number] [place] [address]- 7569 Apr, [facility] [place] [facility] [address] [id number] [place] [address]- 8626 31 Apr, 2012 [facility] [place] [facility] [address] [id number] [place] 9381 18 Apr, 2012 [facility] [place] [facility] [address] [id number] [place] [address]- 7266 18 Apr, 2012 [facility] [place] [facility] [address] [id number] [place] [address]- 1476 17 Apr, 2012 [facility] [place] [facility] [address] [id number] [place] [address]- 7136 17 Apr, 2012 [facility] [place] [facility] [address] [id number] [place] [address]- 1792 14 Apr, 2012 [facility] [place] [facility] [address] [id number] [place] [address]- 4200 14 Apr, 2012 [facility] [place] [facility] [address] [id number] [place] [address]- 8979 14 Apr, 2012 [facility] [place] [facility] [address] [id number] [place] [address]- 6516 14 Apr, 2012 [facility] [place] [facility] [address] [id number] [place] [address]- 7396 10 Apr, 2012 [facility] [place] [facility] [address] [id number] [place] [address]- 1836 10 Apr, 2012 [facility] [place] [facility] [address] [id number] [place] [address]- 2687 10 Apr, 2012 [facility] [place] [facility] [address] [id number] [place] [address]- 4487 10 Apr, 2012 [facility] [place] [facility] [address] [id number] [place] [address]- 1116 07 Apr, 2012 [facility] [place] [facility] [address] [id number] [place] [address]- 4210 05 Apr, 2012 [facility] [place] [facility] [address] [id number] [place] [address]- 6596 05 Apr, 2012 [facility] [place] [facility] [address] [id number] [place] [address]- 2068 05 Apr, 2012 [facility] [place] [facility] [address] [id number] [place] [address]- 4322 05 Apr, 2012 [facility] [place] [facility] [address] [id number] [place] [address]- 0156 30 Mar, 2012 [facility] [place] [facility] [address] [id number] [place] [address]- 3705 30 Mar, 2012 [facility] [place] [facility] [address] [id number] [place] [address]- 5117 29 Mar, 2012 [facility] [place] [facility] [address] [id number] [place] [address], [place] [address]- 6855 Mar, [facility] [place] [facility] [address] [id number] [place] [address]- 4246 Mar, [facility] [place] [facility] [address] [id number] [place] [address]- 1602 Mar, [facility] [place] [facility] [address] [id number] [place] [address]- 5517 Mar, [facility] [place] [facility] [address] [id number] [place] [address]- 8443 Mar, [facility] [place] [facility] [address] [facility] [id number] [place] [address]- 3182 Mar, [facility] [place] [facility] [address] [id number] [place] [address]- 0643 Mar, [facility] [place] [facility] [address] [id number] [place] [address]- 8767 14 Mar, 2012 [facility] [place] [facility] [address] [id number] [place] [address]- 3100 Mar, [facility] [place] [facility] [address] [facility] [id number] [place] [address]- 8586 Mar, [facility] [place] [facility] [address] [id number] [place] [address]- 5667 Feb, [facility] [place] [facility] [address] [id number] [place] [address]- 4478 Feb, [facility] [place] [facility] [address] [id number] [place] [address]- 2901 Feb, [facility] [place] [facility] [address] [id number] [place] [address]- 3518 Feb, [facility] [place] [facility] [address] [id number] [place] [address]- 3507 Feb, [facility] [place] [facility] [address] [id number] [place] [address]- 7492 Feb, [facility] [place] [facility] [address] [id number] [place] [address]- 1114 Feb, [facility] [place] [facility] [address] [id number] [place] [address]- 9099 Feb, [facility] [place] [facility] [address] [id number] [place] [address]- 5687 Feb, [facility] [place] [facility] [address] [id number] [place] [address]- 4895 Feb, [facility] [place] [facility] [address] [id number] [place] [address]- 9797 Jan, [facility] [place] [facility] [address] [id number] [place] [address]- 8553 Dec, [facility] [place] [facility] [address] [id number], [place] [address]- 2261 Dec, [facility] [place] [facility] [address] [id number] [place] [address]- 0028 Nov, [facility] [place] [facility] [address] [id number] [place] [address]- 4736 Nov, [facility] [place] [facility] [address] [id number], [place] [address]- 2132 Nov, [facility] [place] [facility] [address] [id number], [place] [address]- 5241 Nov, [facility] [address] [id number] [place] [address]- 1133 Oct, [facility] [place] [facility] [address] [id number] [place] [address]- 1055 Oct, [facility] [address] [id number] [place] [address]- 4933 Oct, [facility] [place] [facility] [address] [id number] [place] [address]- 4271 Oct, [facility] [address] [id number] [place] [address]- 0675 September, [facility] [place] [facility] [address] [id number] [place] [address]- 8533 September, [facility] [address] [id number] [place] [address]- 1115 Aug, [facility] [place] [facility] [address] [id number] [place] [address]- 6112 Aug, [facility] [address] [id number] [place] [address]- 7743 Aug, [facility] [place] [facility] [address] [facility] [id number] [place] [address]- 8973 Jul, [facility] [address] [id number] [place] [address]- 2671 Jul, [facility] [place] [facility] [address] [id number] [place] [address]- 8718 Jun, [facility] [place] [facility] [address] [id number] [place] [address]- 1106 Jun, [facility] [place] [facility] [address] [id number] [place] 0996 Jun, [facility] [place] [facility] [address] [facility] [id number] [place] [address]- 8404 Apr, [facility] [place] [facility] [address] [facility] [id number], [place] [address]- 3436 Apr, [facility] [address] [facility] [id number], [place] [address]- 3847 Mar, [facility] [address] [facility] [id number], [place] [address]- 2006 Mar, [facility] [address] [facility] [id number], [place] [address]- 9591 Feb, [facility] [address] [facility] [id number], [place] [address]- 9543 Dec, [facility] [address] [facility] [id number][place] [address] Nov, IMMUNIZATIONS No Known Immunizations SOCIAL HISTORY Never Assessed REASON FOR VISIT intake PLAN OF CARE Activity Details Follow Up Not rescheduled, prn Reason:Psychotropic Med. review VITAL SIGNS MEDICATIONS Unknown Medications RESULTS No Results PROCEDURES Procedure Date Ordered Result Body Site Psych diagnostic evaluation, new patient October 20, 2016 INSTRUCTIONS MEDICATIONS ADMINISTERED No Known Medications [...]
--- OUTSIDE RECORDS SUMMARY | 2018-03-05 07:38 | XMS REPORT ---
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 976099437 Problem Vascular dementia, uncomplicated 290.40 Active 35464598 Problem Unspecified episodic mood disorder 296.90 Active 012767902 Problem Vascular dementia with behavioral disturbance F01.51 Active 514205185605040 Problem Major depressive disorder, recurrent, unspecified F33.9 Active 43870023 Problem Diabetes mellitus without mention of complication, type II or unspecified type, not stated as uncontrolled 250.00 Active 655578524 Problem Other and unspecified hyperlipidemia 272.4 Active 70398415 Problem Unspecified mood [affective] disorder F39 Active 11790787 Problem 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 Active 66918852 Problem Diarrhea 787.91 Active 45432107 Problem Nausea with vomiting 787.01 Active 75014005 Problem Unspecified disorder of skin and subcutaneous tissue 709.9 Active 87945010 Problem Unspecified local infection of skin and subcutaneous tissue 686.9 Active 601972407 Problem Pain in joint, lower leg 719.46 Active 122408547 Problem Unspecified hypotension 458.9 Active 93376395 Problem Pain in joint, shoulder region 719.41 Active 366880916 Problem 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 Active 499944438 ALLERGIES No Information ENCOUNTERS Encounter Location Date Diagnosis [facility] [address] [facility] [id number], [place] [address] Dec, [facility] [address] [facility] [id number], [place] [address] September, [facility] [address] [facility] [id number] [place] [address] 96187- 3078 September, Major depressive disorder, recurrent, unspecified F33.9 [facility] [id number] [place] [address] [id number] May, [facility] [id number] [place] [address] 102098- 2156 May, Major depressive disorder, recurrent, unspecified F33.9 [facility] [id number] [place] [address] 11268- 0323 Feb, Major depressive disorder, recurrent, unspecified F33.9 [place] [id number] [place] [address] 788642- 8437 Jan, Major depressive disorder, recurrent, unspecified F33.9 [place] [id number] [place] [address] 970556- 6687 Jan, Major depressive disorder, recurrent, unspecified F33.9 [place] [id number] [place] [address] 37792- 5618 Jan, Major depressive disorder, recurrent, unspecified F33.9 [place] [id number] [place] [address] 37210- 5940 Dec, Major depressive disorder, recurrent, unspecified F33.9 [place] [id number] [place] [address] 74664- 3662 Nov, Major depressive disorder, recurrent, unspecified F33.9 [facility] [address] [place] [address] 48033734- 5703 Nov, 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 [address] [address] 14 Aug, 2014 [facility] [id number] [place] [address] 46214- 7674 13 Aug, 2014 [facility] [id number] [place] [address] 78463- 0443 15 Feb, 2013 [facility] [id number] [place] [address] 73720- 1149 07 Feb, 2013 [facility] [id number] [place] [address] 12404- 1169 Feb, [facility] [id number] [place] [address] 60650- 0368 Feb, [facility] [id number] [place] [address] 69927- 3006 23 Sep, 2012 [facility] [id number] [place] [address] 02246- 4380 20 Sep, 2012 [facility] [id number] [place] [address] 31674- 2427 18 Sep, 2012 [facility] [id number] [place] [address] 65545- 7836 10 Sep, 2012 [facility] [address] [place] [address] 23986- 0626 09 Sep, 2012 [facility] [address] [id number], [place] [address] 5932 06 Sep, 2012 [facility] [id number] [place] [address] 17955- 1588 06 Sep, 2012 [facility] [id number] [place] [address] 61215- 4398 05 Sep, 2012 [facility] [id number] [place] [address] 13953- 8558 05 Sep, 2012 [facility] [address] [id number] [place] [address]- 4724 Dec, [facility] [address] [id number] [place] [address]- 7613 Nov, [facility] [place] [facility] [address] [id number] [place] [address]- 2055 Nov, [facility] [place] [facility] [address] [id number] [place] [address]- 0560 Nov, [facility] [place] [facility] [address] [id number] [place] [address]- 7715 Nov, [facility] [place] [facility] [address] [id number] [place] [address]- 9101 Nov, [facility] [place] [facility] [address] [id number] [place] [address]- 9673 Oct, [facility] [place] [facility] [address] [id number] [place] [address]- 0195 Oct, [facility] [place] [facility] [address] [id number] [place] [address]- 1089 Oct, [facility] [place] [facility] [address] [id number] [place] [address]- 3084 Oct, [facility] [place] [facility] [address] [id number] [place] [address]- 6890 Oct, [facility] [place] [facility] [address] [id number] [place] [address]- 9779 September, [facility] [place] [facility] [address] [id number] [place] [address]- 9019 September, [facility] [place] [facility] [address] [id number] [place] [address]- 5384 Aug, [facility] [place] [facility] [address] [id number] [place] [address]- 7056 15 Aug, 2012 [facility] [place] [facility] [address] [id number] [place] [address]- 3903 02 Aug, 2012 [facility] [address] [id number] [place] [address]- 0505 28 Jul, 2012 [facility] [place] [facility] [address] [id number] [place] [address]- 6850 25 Jul, 2012 [facility] [place] [facility] [address] [id number] [place] [address]- 9700 22 Jul, 2012 [facility] [place] [facility] [address] [id number] [place] [address]- 8256 21 Jul, 2012 [facility] [place] [facility] [address] [id number] [place] [address]- 5691 20 Jul, 2012 [facility] [place] [facility] [address] [id number] [place] [address]- 3747 19 Jul, 2012 [facility] [place] [facility] [address] [id number] [place] [address]- 0687 19 Jul, 2012 [facility] [place] [facility] [address] [id number] [place] [address]- 1928 18 Jul, 2012 [facility] [place] [facility] [address] [id number] [place] [address]- 4624 14 Jul, 2012 [facility] [place] [facility] [address] [id number] [place] [address]- 7147 18 Jun, 2012 [facility] [place] [facility] [address] [id number] [place] [address]- 7114 08 Jun, 2012 [facility] [place] [facility] [address] [id number] [place] [address]- 7817 Jun, [facility] [place] [facility] [address] [id number] [place] [address]- 0693 May, [facility] [place] [facility] [address] [id number] [place] [address]- 2250 30 May, 2012 [facility] [place] [facility] [address] [id number] [place] [address]- 6521 May, [facility] [place] [facility] [address] [id number] [place] [address]- 2638 28 May, 2012 [facility] [address] [id number] [place] [address]- 4156 31 Apr, 2012 [facility] [address] [id number] [place] [address]- 6486 31 Apr, 2012 [facility] [address] [id number] [place] [address]- 2924 18 Apr, 2012 [facility] [address] [id number] [place] [address]- 3988 18 Apr, 2012 [facility] [address] [id number] [place] [address]- 6505 17 Apr, 2012 [facility] [address] [id number] [place] [address]- 4310 17 Apr, 2012 [facility] [address] [id number] [place] [address]- 5235 14 Apr, 2012 [facility] [address] [id number] [place] [address]- 4999 14 Apr, 2012 [facility] [address] [id number] [place] [address]- 6465 14 Apr, 2012 [facility] [address] [id number] [place] [address]- 2822 14 Apr, 2012 [facility] [address] [id number] [place] [address]- 5136 10 Apr, 2012 [facility] [address] [id number] [place] [address]- 1178 10 Apr, 2012 [facility] [address] [id number] [place] [address]- 3550 10 Apr, 2012 [facility] [address] [id number] [place] [address]- 7629 10 Apr, 2012 [facility] [address] [id number] [place] [address]- 3867 Apr, [facility] [place] [facility] [address] [id number] [place] [address]- 0133 Apr, [facility] [place] [facility] [address] [id number] [place] [address]- 1976 Apr, [facility] [place] [facility] [address] [id number] [place] [address]- 4686 Apr, [facility] [place] [facility] [address] [id number] [place] [address]- 4433 Apr, [facility] [place] [facility] [address] [id number] [place] [address]- 5491 Mar, [facility] [place] [facility] [address] [id number] [place] [address]- 6513 30 Mar, 2012 [facility] [place] [facility] [address] [id number] [place] [address]- 2102 Mar, [facility] [place] [facility] [address] [id number] [place] [address]- 2867 Mar, [facility] [place] [facility] [address] [id number] [place] [address]- 4850 Mar, [facility] [place] [facility] [address] [id number] [place] [address]- 1083 Mar, [facility] [place] [facility] [address] [id number] [place] [address]- 0255 Mar, [facility] [place] [facility] [address] [id number], [place] [address]- 7346 Mar, [facility] [place] [facility] [address] [id number] [place] [address]- 7979 Mar, [facility] [place] [facility] [address] [id number] [place] [address]- 8964 14 Mar, 2012 [facility] [place] [facility] [address] [id number] [place] [address]- 5901 14 Mar, 2012 [facility] [place] [facility] [address] [id number], [place] [address]- 9249 Mar, [facility] [place] [facility] [address] [id number] [place] [address]- 5292 Mar, [facility] [place] [facility] [address] [id number] [place] [address]- 0716 Feb, [facility] [place] [facility] [address] [id number] [place] [address]- 0387 Feb, [facility] [place] [facility] [address] [id number] [place] [address]- 9524 Feb, [facility] [place] [facility] [address] [id number] [place] [address]- 2357 Feb, [facility] [place] [facility] [address] [id number] [place] [address]32 Feb, [facility] [place] [facility] [address] [id number] [place] [address]- 2068 Feb, [facility] [place] [facility] [address] [id number] [place] [address]- 9164 Feb, [facility] [place] [facility] [address] [id number] [place] [address]- 3764 Feb, [facility] [place] [facility] [address] [id number] [place] [address]- 0553 Feb, [facility] [place] [facility] [address] [id number], [place] [address]- 9077 Feb, [facility] [place] [facility] [address] [id number], [place] [address]- 6951 Jan, [facility] [place] [facility] [address] [id number] [place] [address]- 8850 Dec, [facility] [place] [facility] [address] [id number] [place] [address]- 6293 Dec, [facility] [place] [facility] [address] [id number] [place] [address]- 4820 Nov, [facility] [place] [facility] [address] [id number] [place] [address]- 7580 Nov, [facility] [place] [facility] [address] [id number] [place] [address]- 6964 Nov, [facility] [place] [facility] [address] [id number] [place] [address] 2546 Nov, [facility] [place] [facility] [address] [id number] [place] [address]- 1079 Oct, [facility] [place] [facility] [address] [id number] [place] [address]- 9975 Oct, [facility] [place] [facility] [address] [id number] [place] [address]- 7075 Oct, [facility] [place] [facility] [address] [id number] [place] [address]- 4623 Oct, [facility] [place] [facility] [address] [id number] [place] [address]- 4517 September, [facility] [place] [facility] [address] [id number] [place] [address]- 5565 September, [facility] [place] [facility] [address] [id number] [place] [address]- 1593 Aug, [facility] [place] [facility] [address] [id number] [place] [address]- 0630 Aug, [facility] [place] [facility] [address] [id number] [place] [address]- 1237 Aug, [facility] [place] [facility] [address] [id number] [place] [address]- 0258 30 Jul, 2011 [facility] [place] [facility] [address] [id number] [place] [address]- 6636 14 Jul, 2011 [facility] [place] [facility] [address] [id number] [place] [address]- 6266 15 Jun, 2011 [facility] [place] [facility] [address] [id number] [place] [address]- 1486 Jun, [facility] [address] [facility] [id number], [place] [address]- 6886 Jun, [facility] [address], [place] [address]- 9926 Apr, [facility] [address] [id number], [place] [address] 2546 Apr, [facility] [address], [place] [address]- 7036 Mar, [facility] [address], [place] [address] 2546 Mar, [facility] [address], [place] [address]- 3956 Feb, [facility] [address], [place] [address]- 1886 Dec, [facility] [address] [id number], [place] [address]- 5306 Nov, IMMUNIZATIONS No Known Immunizations SOCIAL HISTORY Never Assessed REASON FOR VISIT f/u PLAN OF CARE Activity Details Follow Up 3 Months Reason: VITAL SIGNS Height 74 in 2017-02-09 Weight 270 lbs 2017-02-09 Heart Rate 78 bpm 2017-02-09 Respiratory Rate 18 2017-02-09 BMI 34.66 kg/m2 2017-02-09 Blood pressure systolic 128 mmHg 2017-02-09 Blood pressure diastolic 76 mmHg 2017-02-09 MEDICATIONS Medication Instructions Dosage Frequency Start Date End Date Duration Status Levemir 100 UNIT/ML Subcutaneous 2 times a day 23 units 12h Active Depakote 250 MG Orally 3 times a day 8h September, Active Multivitamin Active Hydrocodone-Acetaminophen 5-325 MG Orally every 8 hours 1 capsule as needed 8h Active BuSpar 15 MG Orally Twice a day 1 tablet 12h Apr, Active immodium Active Metoprolol Tartrate 25 MG Orally Twice a day 12h Active Claritin 10 MG Orally Once a day 24h Active Ranitidine 150mg Oral Once a day 24h Active Xanax 1 mg Orally every 8 hours as needed 1 tablet Jan, Active Effexor 75 MG Orally twice a day 1 tablet with food 12h Active Melatonin 3 MG Active NovoLog 100 UNIT/ML Active Levothroid 100 MCG Active Eliquis 5 mg Orally 2 times a day 12h Active Rivastigmine 4.6 mg/24 hour 1 Patch 24 hr by Transdermal route 1 time per day Nov, Active Lisinopril 10 MG Active Econazole Nitrate 1 % Active Tradjenta 5 MG Orally Once a day 1 tablet 24h Active Cholecalciferol 2000 UNIT Active Gentamicin Sulfate 0.1 % Active Neurontin 300 MG Orally Three times a day 3 capsules 8h Oct, Active RESULTS No Results PROCEDURES Procedure Date Ordered Result Body Site [facility] VISIT ESTABLISHED PATIENT Feb 09, 2017 INSTRUCTIONS MEDICATIONS ADMINISTERED No Known Medications [...]
--- OUTSIDE RECORDS SUMMARY | 2018-03-05 07:39 | XMS REPORT | Continuity of Care Document ---
Author Author [facility] Organization [facility] Address Unknown Phone Unavailable Care Team Providers Care Leasing Coordinator Name Role Phone YANIRA CRESPO MD PP Insurance Providers Payer Name Policy Number Subscriber Name Relationship Soren [employer]p [id number] Rc Farrell Self / Same As Patient Wps Medicare [id number] Rc Farrell Self / Same As Patient Advance Directives Directive Response Recorded Date Advance Directives Y 09/17/12 4:29pm Health Care Power of Electronic Engineering Technician Y 10/25 4:29pm Organ Donor N 09/17/12 4:29pm Problems No Known Problems or Medical conditions. Family History History Response Recorded Date/Time Hx Family Cancer N 09/17/12 4:29pm Social History History Response Recorded Date/Time Alcohol Use Denies Use 09/17/12 4:29pm Recreational Drug Use N 09/17/12 4:29pm Allergies, Adverse Reactions, Alerts Allergen Type Severity Reaction Last Updated morphine Adverse Reaction Intermediate psychosis 09/12/12 Medications Medication Dose Units Route Sig Qty Days Spironolactone (Aldactone) 25 Mg PO DAILY Insulin Detemir (Levemir Pen) 18 Units SQ HS Insulin Aspart (Novolog) 8 Unit SQ AC Enalapril Maleate (Vasotec) 2.5 Tab PO BID 30 Levothyroxine Sodium (Synthroid) 25 Mcg PO DAILY Sertraline HCl (Zoloft) 25 Mg PO HS Atorvastatin Calcium (Lipitor 20MG) 20 Mg PO HS Gabapentin (Neurontin) 300 Mg PO BID Acetaminophen/Hydrocodone Bitart (Hydrocodone-Apap 10-500 Tablet) 1 Tab PO Q6HR PRN Alprazolam (Xanax) 1 Mg PO DAILY PRN Aspirin (Aspirin 81 Mg Chew Tab) 81 Mg PO HS Clopidogrel Bisulfate (Plavix 75 Mg) 75 Mg PO HS Trimethoprim/Sulfamethoxazole (Bactrim Ds) 1 Ea PO BID Insulin Detemir (Levemir) 20 Unit SQ HS Insulin Aspart (Novolog) 30 Unit SQ with meals Lisinopril (Prinivil) 2.5 Mg PO DAILY Citalopram Hydrobromide (Celexa) 1 Each PO DAILY Metformin HCl (Metformin 1000 Mg) 1000 Mg PO HS Furosemide 1 Each PO DAILY [cozaar] [lasix] Immunizations Name Given Type Date of Pneumonia Vaccine 03/15/12 H Date of Influenza Vaccine 03/15/12 H Response Recorded Date/Time Status not known Unknown Results Test Date Result Interp. Ref. Range Activated Partial Thromboplast Time September 22, 2012 10:26pm 24 SEC N 24-35 Alanine Aminotransferase (ALT/SGPT) September 22, 2012 10:26pm 59 U/L N 30-65 Albumin September 22, 2012 10:26pm 3.4 G/DL N 3.4-5.0 Alkaline Phosphatase September 22, 2012 10:26pm 140 U/L H 50-136 Aspartate Amino Transf (AST/SGOT) September 22, 2012 10:26pm 33 U/L N 15-37 BUN/Creatinine Ratio September 22, 2012 10:26pm 13 - Basophils # (Auto) September 22, 2012 10:26pm 0.0 10^3/uL N 0.0-0.1 Basophils (%) (Auto) September 22, 2012 10:26pm 0 % N 0-10 Blood Urea Nitrogen September 22, 2012 10:26pm 20 MG/DL H 7-18 C-Reactive Protein August 14, 2012 2:18am 1.9 MG/DL H 0.2-0.9 Calcium Level September 22, 2012 10:26pm 8.5 MG/DL N 8.5-10.1 Carbon Dioxide Level September 22, 2012 10:26pm 26 MMOL/L N 21-32 Chloride Level September 22, 2012 10:26pm 103 MMOL/L N 101-110 Cholesterol Level September 13, 2012 5:37am 174 MG/DL N -200 Creatine Kinase MB September 22, 2012 10:26pm 1.6 NG/ML N 0.0-3.6 Creatinine September 22, 2012 10:26pm 1.6 MG/ DL H 0.6-1.3 D-Dimer August 14, 2012 2:18am 1.02 UG/ ML H 0.00-0.49 Eosinophils # (Auto) September 22, 2012 10:26pm 0.1 10^3/uL N 0.0-0.3 Eosinophils (%) (Auto) September 22, 2012 10:26pm 1 % N 0-10 Glucose Level September 22, 2012 10:26pm 114 MG/DL H 74-106 HDL Cholesterol September 13, 2012 5:37am 37 MG/DL N 35-60 Hematocrit September 22, 2012 10:26pm 43 % N 40-54 Hemoglobin September 22, 2012 10:26pm 14.6 G/ DL N 13.3-17.7 Hemoglobin A1c September 13, 2012 5:37am 9.2 % H 4.5-6.2 LDL Cholesterol September 13, 2012 5:37am 116 MG/DL N 0-129 Lymphocytes # (Auto) September 22, 2012 10:26pm 3.6 X 10^3 N 1.0-4.0 Lymphocytes (%) (Auto) September 22, 2012 10:26pm 31 % N 12-44 Magnesium Level September 22, 2012 10:26pm 1.8 MG/DL N 1.8-2.4 Mean Corpuscular Hemoglobin September 22, 2012 10:26pm 28 PG N 25-34 Mean Corpuscular Hemoglobin Concent September 22, 2012 10:26pm 34 G/DL N 32-36 Mean Corpuscular Volume September 22, 2012 10:26pm 81 FL N 80-99 Mean Platelet Volume September 22, 2012 10:26pm 10.3 FL N 7.4-10.4 Monocytes # (Auto) September 22, 2012 10:26pm 1.0 X 10^3 N 0.0-1.0 Monocytes (%) (Auto) September 22, 2012 10:26pm 8 % N 0-12 Myoglobin September 22, 2012 10:26pm 164 UG/L H 10-92 Neutrophils # (Auto) September 22, 2012 10:26pm 7.0 X 10^3 N 1.8-7.8 Neutrophils (%) (Auto) September 22, 2012 10:26pm 60 % N 42-75 Platelet Count September 22, 2012 10:26pm 322 10^3/uL N 130-400 Potassium Level September 22, 2012 10:26pm 4.6 MMOL/L N 3.6-5.0 Prothromb Time International Ratio March 19, 2012 9:16am 0.9 N 0.8-1.4 Prothrombin Time September 22, 2012 10:26pm 13.3 SEC N 12.2-14.7 Red Blood Count September 22, 2012 10:26pm 5.27 10^6/uL N 4.35-5.85 Red Cell Distribution Width September 22, 2012 10:26pm 13.6 % N 10.0-14.5 Sodium Level September 22, 2012 10:26pm 138 MMOL/L N 135-145 Thyroid Stimulating Hormone (TSH) September 13, 2012 5:37am 2.06 UIU/ML N 0.34-5.60 Total Bilirubin September 22, 2012 10:26pm 0.4 MG/DL N 0.0-1.0 Total Creatine Kinase September 22, 2012 10:26pm 144 U/L N 1-205 Total Protein September 22, 2012 10:26pm 7.6 G /DL N 6.4-8.2 Triglycerides Level September 13, 2012 5:37am 107 MG/DL N 30.0-150.0 Troponin I September 22, 2012 10:26pm < 0.10 NG/ML 0.00-0.10 Urine Bacteria September 12, 2012 1:35pm NEGATIVE /HPF - Urine Bilirubin September 12, 2012 1:35pm NEGATIVE - Urine Casts September 12, 2012 1:35pm PRESENT /LPF H - Urine Clarity September 12, 2012 1:35pm CLEAR - Urine Color September 12, 2012 1:35pm YELLOW - Urine Crystals September 12, 2012 1:35pm NONE /LPF - Urine Culture Indicated September 12, 2012 1:35pm NO - Urine Glucose (UA) September 12, 2012 1:35pm NEGATIVE - Urine Hyaline Casts September 12, 2012 1:35pm 0 -2 /LPF H - Urine Ketones September 12, 2012 1:35pm NEGATIVE - Urine Leukocyte Esterase September 12, 2012 1:35pm NEGATIVE - Urine Mucus September 12, 2012 1:35pm SMALL / LPF H - Urine Nitrite September 12, 2012 1:35pm NEGATIVE - Urine Protein September 12, 2012 1:35pm TRACE - Urine RBC September 12, 2012 1:35pm 0-2 /HPF - Urine Specific [place] September 12, 2012 1:35pm 1.020 - Urine Squamous Epithelial Cells September 12, 2012 1:35pm RARE /HPF - Urine Urobilinogen September 12, 2012 1:35pm NORMAL MG/DL - Urine WBC September 12, 2012 1:35pm NONE /HPF - Urine pH September 12, 2012 1:35pm 6 - VLDL Cholesterol September 13, 2012 5:37am 21 MG/DL N 5-40 White Blood Count September 22, 2012 10:26pm 11.7 10^3/uL H 4.3-11.0 Pro-B-Type Natriuretic Peptide September 19, 2012 5:11am 238.0 PG/ML H -125 Glucometer September 21, 2012 10:54am 154 MG/ DL H 70-110 Estimat Glomerular Filtration Rate September 22, 2012 10:26pm 44 - INR International Normalized Ratio August 14, 2012 2:18am 0.9 N 0.8-1.4 Urine RBC (Auto) September 12, 2012 1:35pm TRACE H - INR Comment September 22, 2012 10:26pm 1.0 N 0.8-1.4 Procedures Procedure Code Date LEFT HEART CARDIAC CATH 37.22 03/19/12 LT HEART ANGIOCARDIOGRAM 88.53 03/19/12 CORONAR ARTERIOGR-2 CATH 88.56 03/19/12 Blood Culture 09/12/12 C. difficile DNA Amplification Gram Stain 09/14/12 Encounters Encounter Location Date/Time Departed Emergency Room [facility] 03/27 10:20pm Pre-registered Emergency Room [facility] 09/22/12 10:31pm Discharged Inpatient [facility] 10:45am
--- OUTSIDE RECORDS SUMMARY | 2018-03-05 07:39 | XMS REPORT | Continuity of Care Document ---
Author Author [facility] Organization [facility] Address Unknown Phone Unavailable Care Team Providers Care Community Resource Consultant Name Role Phone YANIRA CRESPO MD PP Insurance Providers Payer Name Policy Number Subscriber Name Relationship Soren [employer] Amer[employer]p [id number] Rc Farrell Self / Same As Patient Wps Medicare [id number] Rc Farrell Self / Same As Patient Advance Directives Directive Response Recorded Date Advance Directives N 01/17/13 8:50pm Health Care Power of Hospital Recruiter Y 09/24 8:50pm Organ Donor N 01/17/13 8:50pm Problems No Known Problems or Medical conditions. Family History History Response Recorded Date/Time Hx Family Cancer N 01/17/13 8:50pm Hx Family Cardiac Disorders Y MOTHER HAD PACEMAKER 01/17/13 8:50pm Hx Family Hypertension Y MOTHER 01/17/13 8:50pm Hx Family Myocardial Infarction Y MOTHER 01/17/13 8:50pm Social History History Response Recorded Date/Time Alcohol Use Denies Use 01/17/13 8:50pm Recreational Drug Use N 01/17/13 8:50pm Sexually Transmitted Disease N unknown 8:50pm HIV/AIDS N 01/17/13 8:50pm Allergies, Adverse Reactions, Alerts Allergen Type Severity Reaction Last Updated morphine Adverse Reaction Intermediate psychosis 09/12/12 Medications Medication Dose Units Route Sig Qty Days Citalopram Hydrobromide (Citalopram Hbr) 10 Mg PO DAILY Hydrocodone Bit/Acetaminophen (Hydrocodon-Acetaminophn 10-325) 10 - 325 Mg PO Q6H PRN Aspirin ([place] Aspirin) 81 Mg PO HS Rivastigmine Tartrate (Exelon Patch) 4.6 Mg TD DAILY Nitroglycerin (Nitrostat) 0 SL PRN Insulin Detemir (Levemir Pen) 20 Units SQ HS Insulin Aspart (Novolog) 20 Unit SQ QID Enalapril Maleate (Vasotec) 2.5 Tab PO BID Levothyroxine Sodium (Synthroid) 25 Mcg PO HS Atorvastatin Calcium (Lipitor 20MG) 20 Mg PO HS Alprazolam (Xanax) 1 Mg PO BID PRN Clopidogrel Bisulfate (Plavix 75 Mg) 75 Mg PO HS Spironolactone (Aldactone) 25 Mg PO DAILY Sertraline HCl (Zoloft) 25 Mg PO HS Gabapentin (Neurontin) 300 Mg PO BID Trimethoprim/Sulfamethoxazole (Bactrim Ds) 1 Ea PO BID [...] Interp. Ref. Range Activated Partial Thromboplast Time January 17, 2013 6: 40pm 28 SEC N 24-35 Alanine Aminotransferase (ALT/SGPT) January 17, 2013 6: 40pm 38 U/L N 30-65 Albumin January 17, 2013 6:40pm 3.3 G/ DL L 3.4-5.0 Alkaline Phosphatase January 17, 2013 6:40pm 140 U/L H 50-136 Amylase Level January 17, 2013 6:40pm 49 U/L N 25-115 Aspartate Amino Transf (AST/SGOT) January 17, 2013 6:40pm 16 U/L N 15-37 BUN/Creatinine Ratio January 18, 2013 6:20am 13 - Basophils # (Auto) January 18, 2013 6:20am 0.0 10^3/uL N 0.0-0.1 Basophils (%) (Auto) January 18, 2013 6:20am 0 % N 0-10 Blood Urea Nitrogen January 18, 2013 6:20am 18 MG/DL N 7-18 C-Reactive Protein August 14, 2012 2:18am 1.9 MG/DL H 0.2-0.9 Calcium Level January 18, 2013 6:20am 8.6 MG/DL N 8.5-10.1 Carbon Dioxide Level January 18, 2013 6:20am 32 MMOL/L N 21-32 Chloride Level January 18, 2013 6:20am 101 MMOL/L N 101-110 Cholesterol Level September 13, 2012 5:37am 174 MG/DL N -200 Creatine Kinase MB January 17, 2013 6:40pm 2.0 NG/ML N 0.0-3.6 Creatinine January 18, 2013 6:20am 1.4 MG/DL H 0.6-1.3 D-Dimer August 14, 2012 2:18am 1.02 UG/ ML H 0.00-0.49 Eosinophils # (Auto) January 18, 2013 6:20am 0.2 10^3/uL N 0.0-0.3 Eosinophils (%) (Auto) January 18, 2013 6:20am 2 % N 0-10 Glucose Level January 18, 2013 6:20am 270 MG/DL H 74-106 HDL Cholesterol September 13, 2012 5:37am 37 MG/DL N 35-60 Hematocrit January 18, 2013 6:20am 47 % N 40-54 Hemoglobin January 18, 2013 6:20am 16.0 G/DL N 13.3-17.7 Hemoglobin A1c September 13, 2012 5:37am 9.2 % H 4.5-6.2 LDL Cholesterol September 13, 2012 5:37am 116 MG/DL N 0-129 Lipase January 17, 2013 6:40pm 287 U/ L N 73-393 Lymphocytes # (Auto) January 18, 2013 6:20am 2.6 X 10^3 N 1.0-4.0 Lymphocytes (%) (Auto) January 18, 2013 6:20am 28 % N 12-44 Magnesium Level January 17, 2013 6:40pm 1.7 MG/DL L 1.8-2.4 Mean Corpuscular Hemoglobin January 18, 2013 6:20am 29 PG N 25-34 Mean Corpuscular Hemoglobin Concent January 18, 2013 6: 20am 34 G/DL N 32-36 Mean Corpuscular Volume January 18, 2013 6:20am 84 FL N 80-99 Mean Platelet Volume January 18, 2013 6:20am 11.0 FL H 7.4-10.4 Monocytes # (Auto) January 18, 2013 6:20am 0.7 X 10^3 N 0.0-1.0 Monocytes (%) (Auto) January 18, 2013 6:20am 8 % N 0-12 Myoglobin September 22, 2012 10:26pm 164 UG/L H 10-92 Neutrophils # (Auto) January 18, 2013 6:20am 5.6 X 10^3 N 1.8-7.8 Neutrophils (%) (Auto) January 18, 2013 6:20am 61 % N 42-75 Platelet Count January 18, 2013 6:20am 246 10^3/uL N 130-400 Potassium Level January 18, 2013 6:20am 4.4 MMOL/L N 3.6-5.0 Prothromb Time International Ratio March 19, 2012 9:16am 0.9 N 0.8-1.4 Prothrombin Time January 17, 2013 6:40pm 12.2 SEC N 12.2-14.7 Red Blood Count January 18, 2013 6:20am 5.62 10^6/uL N 4.35-5.85 Red Cell Distribution Width January 18, 2013 6:20am 13.3 % N 10.0-14.5 Sodium Level January 18, 2013 6:20am 138 MMOL/L N 135-145 Thyroid Stimulating Hormone (TSH) September 13, 2012 5:37am 2.06 UIU/ML N 0.34-5.60 Total Bilirubin January 17, 2013 6:40pm 0.3 MG/DL N 0.0-1.0 Total Creatine Kinase January 17, 2013 6:40pm 62 U/L N 1-205 Total Protein January 17, 2013 6:40pm 7.4 G/DL N 6.4-8.2 Triglycerides Level September 13, 2012 5:37am 107 MG/DL N 30.0-150.0 Troponin I January 17, 2013 6:40pm < 0.10 NG/ML 0.00-0.10 Urine Bacteria September [...] 2012 1:35pm 0-2 /HPF - Urine Specific [place] September 12, 2012 1:35pm 1.020 - Urine Squamous Epithelial Cells September 12, 2012 1:35pm RARE /HPF - Urine Urobilinogen September 12, 2012 1:35pm NORMAL MG/DL - Urine WBC September 12, 2012 1:35pm NONE /HPF - Urine pH September 12, 2012 1:35pm 6 - VLDL Cholesterol September 13, 2012 5:37am 21 MG/DL N 5-40 White Blood Count January 18, 2013 6:20am 9.1 10^3/uL N 4.3-11.0 Pro-B-Type Natriuretic Peptide January 17, 2013 6:40pm 419.3 PG/ML H -125 Serum Alcohol January 17, 2013 6:40pm < 5 MG/DL -5 Glucometer January 18, 2013 12:31pm 341 MG/DL H 70-110 Estimat Glomerular Filtration Rate January 17, 2013 6: 40pm 47 - INR International Normalized Ratio August 14, 2012 2:18am 0.9 N 0.8-1.4 Urine RBC (Auto) September 12, 2012 1:35pm TRACE H - INR Comment January 17, 2013 6:40pm 0.9 N 0.8-1.4 Procedures Procedure Code Date LEFT HEART CARDIAC CATH 37.22 03/19/12 LT HEART ANGIOCARDIOGRAM 88.53 03/19/12 CORONAR ARTERIOGR-2 CATH 88.56 03/19/12 Blood Culture 09/12/12 C. difficile DNA Amplification Gram Stain 09/14/12 Encounters Encounter Location Date/Time Discharged Inpatient [facility] 8:50pm Departed Emergency Room [facility] 03/27 10:20pm Pre-registered Emergency Room [facility] 09/22/12 10:31pm
--- OUTSIDE RECORDS SUMMARY | 2018-03-05 07:40 | XMS REPORT | Continuity of Care Document ---
Author Author [facility] Organization [facility] Address Unknown Phone Unavailable Care Team Providers Care Extra Gang Supervisor Name Role Phone YANIRA CRESPO MD PP Insurance Providers Payer Name Policy Number Subscriber Name Relationship Soren [employer] Amer[employer]p [id number] Rc Farrell Self / Same As Patient Wps Medicare [id number] Rc Farrell Self / Same As Patient Advance Directives Directive Response Recorded Date Advance Directives Y 09/17/12 4:29pm Health Care Power of Geopolitics Teacher Y 10/25 4:29pm Organ Donor N 09/17/12 [...] 2012 1:35pm 0-2 /HPF - Urine Specific [place] September 12, 2012 1:35pm 1.020 - Urine [...]
--- OUTSIDE RECORDS SUMMARY | 2018-03-05 07:40 | XMS REPORT | Continuity of Care Document ---
Author Author [facility] Organization [facility] Address Unknown Phone Unavailable Care Team Providers Care Digital Hardware Design Engineer Name Role Phone YANIRA CRESPO MD PP Insurance Providers Payer Name Policy Number Subscriber Name Relationship Soren [employer] Amerigrp [id number] Rc Farrell Self / Same As Patient Wps Medicare [id number] Rc Farrell Self / Same As Patient Advance Directives Directive Response Recorded Date Advance Directives Y 09/17/12 4:29pm Health Care Power of Event Lighting Specialist Y 10/25 4:29pm Organ Donor N 09/17/12 [...] 2012 1:35pm 0-2 /HPF - Urine Specific [place] September 12, 2012 1:35pm 1.020 - Urine [...]
--- OUTSIDE RECORDS SUMMARY | 2018-03-05 07:41 | XMS REPORT | Continuity of Care Document ---
Author Author [facility] Organization [facility] Address Unknown Phone Unavailable Care Team Providers Care Insurance Adviser Name Role Phone YANIRA CRESPO MD PP Insurance Providers Payer Name Policy Number Subscriber Name Relationship Soren [employer] Amerigrp [id number] Rc Farrell Self / Same As Patient Wps Medicare [id number] Rc Farrell Self / Same As Patient Advance Directives Directive Response Recorded Date Advance Directives N 01/17/13 8:50pm Health Care Power of Pastry Supervisor Y 09/24 8:50pm Organ Donor N 01/17/13 [...] - 325 Mg PO Q6H PRN Aspirin ([place] Aspirin) 81 Mg PO HS Rivastigmine Tartrate [...] 2012 1:35pm 0-2 /HPF - Urine Specific [place] September 12, 2012 1:35pm 1.020 - Urine [...] 17, 2013 6:40pm < 5 MG/DL -5 Estimat Glomerular Filtration Rate January 17, 2013 [...]
--- OUTSIDE RECORDS SUMMARY | 2018-03-05 07:42 | XMS REPORT | Continuity of Care Document ---
Author Author [facility] Organization [facility] Address Unknown Phone Unavailable Allergies Active Description Code Type Severity Reaction Onset Reported/Identified Relationship to Patient Clinical Status Yes MORPHINE MORPHINE UNKNOWN Yes MORPHINE UNKNOWN UNKNOWN Yes lisinopril Drug Allergy N/A N/A 10/08/2010 Yes lisinopril Drug Allergy 10/08/2010 Yes Zocor 40 mg tablet Drug Allergy N/A N/A 02/27/2012 Yes Zocor 40 mg tablet Drug Allergy 02/27/2012 Yes Zocor Drug Allergy 02/27/2012 Yes MORPHINE Drug Allergy 06/20/2012 Yes morphine [id number] Drug Allergy Moderate psychosis 09/12/2012 Medications Medication Packaging Start Date Stop Date Route Dosage Sig INSULIN ASPART PEN INJ 100 UNITS/CC (NOVOLOG FLEXPEN) 06/22/2017 07/22/2017 ACHS&0630,1130,1630,2100 ACETAMINOPHEN ORAL TABLET 325mg(Tylenol) MG 06/22/2017 07/22/2017 PRN EVERY 6 Hour ACETAMINOPHEN ORAL TABLET 325mg(Tylenol) MG 06/22/2017 06/23/2017 PRN Q4H POLYETHYLENE GLYCOL POWDER UD PWD (MIRALAX 17GM UNIT DOSE PAKS) gm 06/22/2017 07/02/2017 PRN Q3H ALUM/MAG/SIMETH 30CC LIQ (MYLANTA PLUS) cc 06/22/2017 07/22/2017 PRN Q4H INSULIN ASPART PEN INJ 100 UNITS/CC (NOVOLOG FLEXPEN) UNITS 06/22/2017 06/22/2017 ONCE&1811 VENLAFAXINE XR CAP 75 MG (EFFEXOR XR) MG 06/22/2017 07/22/2017 BID&0800,2000 GABAPENTIN CAP 300 MG (NEURONTIN) MG 06/22/2017 07/22/2017 TID&0800,1400,2000 DIVALPROEX SPRINKLE CAP 125 MG (DEPAKOTE SPRINKLE) MG 06/22/2017 07/22/2017 TID&0800,1400,2000 METOPROLOL TAB 25 MG (LOPRESSOR) MG 06/22/2017 07/22/2017 BID&0800,1999 LACTULOSE SYRUP LIQ 20 GM/30CC (CHRONULAC SYRUP) GM 06/22/2017 07/22/2017 BID&08,1999 MILK OF MAGNESIA LIQ ml 06/22/2017 07/22/2017 PRN BID BUSPIRONE TAB 15 MG (BUSPAR) MG 12/201707/22/2017 BID&08,1999 APIXABAN TAB 5 MG (ELIQUIS) MG 12/201707/22/2017 BID&0800,1999 TRAZODONE TAB 50 MG (DESYREL) MG 07/22/2017 PRN QHS MELATONIN TAB 3 MG (MELATONIN) MG 06/22/2017 07/21/2017 QHS&2100 INSULIN DETEMIR PEN INJ 100 UNITS/CC (LEVEMIR FLEXPEN) UNITS 06/22/2017 07/21/2017 QHS&2100 HYDROCODONE/APAP 5MG/325MG TAB 5 MG/325MG (GENIA-TAB 5/325) TAB 06/22/2017 07/02/2017 PRN Q8H CALMOSEPTINE OINT TUBE (RISAMINE OINT) an 06/22/2017 07/22/2017 PRN QID LOPERAMIDE CAP 2 MG (IMMODIUM) MG 06/22/2017 06/29/2017 PRN QID GUAIFENESIN - DM LIQ (ROBITUSSIN DM) ml 06/22/2017 06/29/2017 PRN Q8H LEVOTHYROXINE TAB 150 MCG (SYNTHROID) MCG 06/23/2017 07/22/2017 Daily&0530 INSULIN DETEMIR PEN INJ 100 UNITS/CC (LEVEMIR FLEXPEN) UNITS 06/23/2017 07/22/2017 QAM&0800 RANITIDINE TAB 150 MG (ZANTAC) MG 06/23/2017 07/22/2017 Daily&0900 LORATADINE TAB 10 MG (CLARITIN) MG 06/23/2017 07/22/2017 Daily&0900 LOPERAMIDE CAP 2 MG (IMMODIUM) MG 06/23/2017 06/30/2017 PRN Daily VITAMIN D-3 TAB 1000 UNITS (VITAMIN D-3) UNITS 06/23/2017 07/22/2017 Daily&0900 MultiVits (Thera M Plus) (wyjyypsu-gyma-vffxbdf) oral tablet TAB 06/23/2017 07/22/2017 Daily&0900 Rivastigmine TD Patch 24 hour 9.5mg (EXELON) MG 06/23/2017 07/22/2017 Daily&0900 BISACODYL SUPPOS 10 MG (DULCOLAX SUPPOS) MG 06/23/2017 07/23/2017 PRN Daily ALPRAZOLAM TAB 1 MG (XANAX) MG 01/201807/21/2017 Daily&1700 DIVALPROEX SPRINKLE CAP 125 MG (DEPAKOTE SPRINKLE) MG 06/23/2017 07/23/2017 BID&0800,2000 BUSPIRONE TAB 15 MG (BUSPAR) MG 01/201807/23/2017 BID&0800,2000 LORAZEPAM TAB 0.5 MG (ATIVAN) MG 07/23/2017 PRN Q6H HALOPERIDOL TAB 0.5 MG (HALDOL) MG 06/23/2017 07/23/2017 PRN Q6H VENLAFAXINE XR CAP 75 MG (EFFEXOR XR) MG 06/24/2017 07/23/2017 Daily&0900 Haloperidol 0.25mg (Haldol) oral tablet MG 06/24/2017 07/24/2017 PRN Q6H Lorazepam oral tablet 0.25mg (Ativan) MG 06/24/2017 07/04/2017 PRN Q6H HALOPERIDOL VIAL INJ 5 MG/CC (HALDOL 1CC VIAL) MG 06/26/2017 07/26/2017 PRN Q6H HALOPERIDOL VIAL INJ 5 MG/CC (HALDOL 1CC VIAL) MG 06/26/2017 07/26/2017 PRN Q6H ALPRAZOLAM TAB 0.5 MG (XANAX) MG 06/28/2017 QPM&1700 GABAPENTIN CAP 300 MG (NEURONTIN) MG 06/26/2017 07/26/2017 TID&0800,1400,2000 HALOPERIDOL VIAL INJ 5 MG/CC (HALDOL 1CC VIAL) MG 06/26/2017 07/26/2017 PRN TID BUSPIRONE TAB 5 MG (BUSPAR) MG 07/29/2017 BID&0800,2000 DIVALPROEX SPRINKLE CAP 125 MG (DEPAKOTE SPRINKLE) MG 06/29/2017 07/28/2017 QHS&2100 DIVALPROEX SPRINKLE CAP 125 MG (DEPAKOTE SPRINKLE) MG 06/30/2017 07/29/2017 QAM&0800 Problems Date Dx Coded Attending Type Code Diagnosis Diagnosed By 10/08/2010 YANIRA CRESPO MD 401.1 HYPERTENSION, BENIGN ESSENTIAL 10/08/2010 YANIRA CRESPO MD 786.2 COUGH 10/08/2010 SEFERINO CARIAS MIO K 401.1 HYPERTENSION, BENIGN ESSENTIAL 10/08/2010 GENTILE DO MIO K 786.2 COUGH 10/08/2010 KRYSTLE WASSERMAN APRN 401.1 HYPERTENSION, BENIGN ESSENTIAL 10/08/2010 KRYSTLE WASSERMAN APRN 786.2 COUGH 10/08/2010 KRYSTLE WASSERMAN APRN 401.1 HYPERTENSION, BENIGN ESSENTIAL 10/08/2010 KRYSTLE WASSERMAN APRN 786.2 COUGH 10/08/2010 GENTILE DO MIO K 401.1 HYPERTENSION, BENIGN ESSENTIAL 10/08/2010 GENTILE DO MIO K 786.2 COUGH 10/08/2010 YANIRA CRESPO MD 401.1 HYPERTENSION, BENIGN ESSENTIAL 10/08/2010 YANIRA CRESPO MD 786.2 COUGH 10/08/2010 401.1 HYPERTENSION, BENIGN ESSENTIAL 10/08/2010 786.2 COUGH 10/08/2010 401.1 HYPERTENSION, BENIGN ESSENTIAL 10/08/2010 786.2 COUGH 10/08/2010 401.1 HYPERTENSION, BENIGN ESSENTIAL 10/08/2010 786.2 COUGH 10/08/2010 401.1 HYPERTENSION, BENIGN ESSENTIAL 10/08/2010 786.2 COUGH 10/08/2010 401.1 HYPERTENSION, BENIGN ESSENTIAL 10/08/2010 786.2 COUGH 10/08/2010 YANIRA CRESPO MD 401.1 HYPERTENSION, BENIGN ESSENTIAL 10/08/2010 YANIRA CRESPO MD 786.2 COUGH 10/08/2010 KRYSTLE WASSERMAN APRN 401.1 HYPERTENSION, BENIGN ESSENTIAL 10/08/2010 KRYSTLE WASSERMAN APRN 786.2 COUGH 10/08/2010 RAMIREZ GHOTRA MD 401.1 HYPERTENSION, BENIGN ESSENTIAL 10/08/2010 RAMIREZ GHOTRA MD 786.2 COUGH 10/08/2010 LISY [employer] COUNSEL, KRYSTLE T 401.1 HYPERTENSION, BENIGN ESSENTIAL 10/08/2010 KRYSTLE WASSERMAN APRN 786.2 COUGH 11/30/2010 YANIRA CRESPO MD 250.02 DIABETES II UNCONTROLLED (UNCOMPLICATED) 11/30/2010 YANIRA CRESPO MD 300.00 ANXIETY UNSPEC 11/30/2010 YANIRA CRESPO MD 414.00 CAD 11/30/2010 YANIRA CRESPO MD 724.2 BACK PAIN, LOWER 11/30/2010 YANIRA CRESPO MD 780.57 SLEEP APNEA 11/30/2010 YANIRA CRESPO MD 786.05 SHORTNESS OF BREATH 11/30/2010 GENTILE DO, MIO K 250.02 DIABETES II UNCONTROLLED (UNCOMPLICATED) 11/30/2010 GENTILE DO, MIO K 300.00 ANXIETY UNSPEC 11/30/2010 GENTILE DO, MIO K 414.00 CAD 11/30/2010 GENTILE DO, MIO K 724.2 BACK PAIN, LOWER 11/30/2010 GENTILE DO, MIO K 780.57 SLEEP APNEA 11/30/2010 GENTILE DO, MIO K 786.05 SHORTNESS OF BREATH 11/30/2010 KRYSTLE WASSERMAN APRN 250.02 DIABETES II UNCONTROLLED (UNCOMPLICATED) 11/30/2010 KRYSTLE WASSERMAN APRN 300.00 ANXIETY UNSPEC 11/30/2010 KRYSTLE WASSERMAN APRN 414.00 CAD 11/30/2010 KRYSTLE WASSERMAN APRN 724.2 BACK PAIN, LOWER 11/30/2010 KRYSTLE WASSERMAN APRN 780.57 SLEEP APNEA 11/30/2010 KRYSTLE WASSERMAN APRN 786.05 SHORTNESS OF BREATH 11/30/2010 KRYSTLE WASSERMAN APRN 250.02 DIABETES II UNCONTROLLED (UNCOMPLICATED) 11/30/2010 KRYSTLE WASSERMAN APRN 300.00 ANXIETY UNSPEC 11/30/2010 KRYSTLE WASSERMAN APRN 414.00 CAD 11/30/2010 KRYSTLE WASSERMAN APRN 724.2 BACK PAIN, LOWER 11/30/2010 KRYSTLE WASSERMAN APRN 780.57 SLEEP APNEA 11/30/2010 KRYSTLE WASSERMAN APRN 786.05 SHORTNESS OF BREATH 11/30/2010 GENTILE DO, MIO K 250.02 DIABETES II UNCONTROLLED (UNCOMPLICATED) 11/30/2010 GENTILE DO, MIO K 300.00 ANXIETY UNSPEC 11/30/2010 GENTILE DO, MIO K 414.00 CAD 11/30/2010 GENTILE DO, MIO K 724.2 BACK PAIN, LOWER 11/30/2010 MIO GENTILE DO Elliott 780.57 SLEEP APNEA 11/30/2010 GENTILE MIO CARIAS Elliott 786.05 SHORTNESS OF BREATH 11/30/2010 YANIRA CRESPO MD 250.02 DIABETES II UNCONTROLLED (UNCOMPLICATED) 11/30/2010 YANIRA CRESPO MD 300.00 ANXIETY UNSPEC 11/30/2010 YANIRA CRESPO MD 414.00 CAD 11/30/2010 YANIRA CRESOP MD 724.2 BACK PAIN, LOWER 11/30/2010 YANIRA CRESPO MD 780.57 SLEEP APNEA 11/30/2010 YANIRA CRESPO MD 786.05 SHORTNESS OF BREATH 11/30/2010 250.02 DIABETES II UNCONTROLLED (UNCOMPLICATED) 11/30/2010 300.00 ANXIETY UNSPEC 11/30/2010 414.00 CAD 11/30/2010 724.2 BACK PAIN, LOWER 11/30/2010 780.57 SLEEP APNEA 11/30/2010 786.05 SHORTNESS OF BREATH 11/30/2010 250.02 DIABETES II UNCONTROLLED (UNCOMPLICATED) 11/30/2010 300.00 ANXIETY UNSPEC 11/30/2010 414.00 CAD 11/30/2010 724.2 BACK PAIN, LOWER 11/30/2010 780.57 SLEEP APNEA 11/30/2010 786.05 SHORTNESS OF BREATH 11/30/2010 250.02 DIABETES II UNCONTROLLED (UNCOMPLICATED) 11/30/2010 300.00 ANXIETY UNSPEC 11/30/2010 414.00 CAD 11/30/2010 724.2 BACK PAIN, LOWER 11/30/2010 780.57 SLEEP APNEA 11/30/2010 786.05 SHORTNESS OF BREATH 11/30/2010 250.02 DIABETES II UNCONTROLLED (UNCOMPLICATED) 11/30/2010 300.00 ANXIETY UNSPEC 11/30/2010 414.00 CAD 11/30/2010 724.2 BACK PAIN, LOWER 11/30/2010 780.57 SLEEP APNEA 11/30/2010 786.05 SHORTNESS OF BREATH 11/30/2010 250.02 DIABETES II UNCONTROLLED (UNCOMPLICATED) 11/30/2010 300.00 ANXIETY UNSPEC 11/30/2010 414.00 CAD 11/30/2010 724.2 BACK PAIN, LOWER 11/30/2010 780.57 SLEEP APNEA 11/30/2010 786.05 SHORTNESS OF BREATH 11/30/2010 YANIRA CRESPO MD 250.02 DIABETES II UNCONTROLLED (UNCOMPLICATED) 11/30/2010 YANIRA CRESPO MD 300.00 ANXIETY UNSPEC 11/30/2010 YANIRA CRESPO MD 414.00 CAD 11/30/2010 YANIRA CRESPO MD 724.2 BACK PAIN, LOWER 11/30/2010 YANIRA CRESPO MD 780.57 SLEEP APNEA 11/30/2010 YANIRA CRESPO MD 786.05 SHORTNESS OF BREATH 11/30/2010 KRYSTLE WASSERMAN APRN 250.02 DIABETES II UNCONTROLLED (UNCOMPLICATED) 11/30/2010 KRYSTLE WASSERMAN APRN 300.00 ANXIETY UNSPEC 11/30/2010 KRYSTLE WASSERMAN APRN 414.00 CAD 11/30/2010 KRYSTLE WASSERMAN APRN 724.2 BACK PAIN, LOWER 11/30/2010 KRYSTLE WASSERMAN APRN 780.57 SLEEP APNEA 11/30/2010 KRYSTLE WASSERMAN APRN 786.05 SHORTNESS OF BREATH 11/30/2010 RAMIREZ GHOTRA MD 250.02 DIABETES II UNCONTROLLED (UNCOMPLICATED) 11/30/2010 RAMIREZ GHOTRA MD 300.00 ANXIETY UNSPEC 11/30/2010 RAMIREZ GHOTRA MD 414.00 CAD 11/30/2010 RAMIREZ GHOTRA MD 724.2 BACK PAIN, LOWER 11/30/2010 RAMIREZ GHOTRA MD 780.57 SLEEP APNEA 11/30/2010 RAMIREZ GHOTRA MD 786.05 SHORTNESS OF BREATH 11/30/2010 KRYSTLE WASSERMAN APRN 250.02 DIABETES II UNCONTROLLED (UNCOMPLICATED) 11/30/2010 KRYSTLE WASSERMAN APRN 300.00 ANXIETY UNSPEC 11/30/2010 KRYSTLE WASSERMAN APRN 414.00 CAD 11/30/2010 KRYSTLE WASSERMAN APRN 724.2 BACK PAIN, LOWER 11/30/2010 KRYSTLE WASSERMAN APRN 780.57 SLEEP APNEA 11/30/2010 KRYSTLE WASSERMAN APRN 786.05 SHORTNESS OF BREATH 03/29/2011 Ot 780.09 03/29/2011 Ot 959.01 03/29/2011 Ot 959.2 03/29/2011 Ot E000.8 03/29/2011 Ot E849.6 03/29/2011 Ot E886.9 04/15/2011 YANIRA CRESPO MD 465.9 UPPER RESPIRATORY INFECTION 04/15/2011 MIO GENTILE DO 465.9 UPPER RESPIRATORY INFECTION 04/15/2011 KRYSTLE WASSERMAN APRN 465.9 UPPER RESPIRATORY INFECTION 04/15/2011 KRYSTLE WASSERMAN APRN 465.9 UPPER RESPIRATORY INFECTION 04/15/2011 MIO GENTILE DO 465.9 UPPER RESPIRATORY INFECTION 04/15/2011 YANIRA CRESPO MD 465.9 UPPER RESPIRATORY INFECTION 04/15/2011 465.9 UPPER RESPIRATORY INFECTION 04/15/2011 465.9 UPPER RESPIRATORY INFECTION 04/15/2011 465.9 UPPER RESPIRATORY INFECTION 04/15/2011 465.9 UPPER RESPIRATORY INFECTION 04/15/2011 465.9 UPPER RESPIRATORY INFECTION 04/15/2011 YANIRA CRESPO MD 465.9 UPPER RESPIRATORY INFECTION 04/15/2011 KRYSTLE WASSERMAN APRN 465.9 UPPER RESPIRATORY INFECTION 04/15/2011 RAMIREZ GHOTRA MD 465.9 UPPER RESPIRATORY INFECTION 04/15/2011 KRYSTLE WASSERMAN APRN 465.9 UPPER RESPIRATORY INFECTION 06/17/2011 YANIRA CRESPO MD 250.00 DIABETES MELLITUS TYPE 2 06/17/2011 MIO GENTILE DO 250.00 DIABETES MELLITUS TYPE 2 06/17/2011 KRYSTLE WASSERMAN APRN 250.00 DIABETES MELLITUS TYPE 2 06/17/2011 KRYSTLE WASSERMAN APRN 250.00 DIABETES MELLITUS TYPE 2 06/17/2011 MIO GENTILE DO 250.00 DIABETES MELLITUS TYPE 2 06/17/2011 YANIRA CRESPO MD 250.00 DIABETES MELLITUS TYPE 2 06/17/2011 250.00 DIABETES MELLITUS TYPE 2 06/17/2011 250.00 DIABETES MELLITUS TYPE 2 06/17/2011 250.00 DIABETES MELLITUS TYPE 2 06/17/2011 250.00 DIABETES MELLITUS TYPE 2 06/17/2011 250.00 DIABETES MELLITUS TYPE 2 06/17/2011 YANIRA CRESPO MD 250.00 DIABETES MELLITUS TYPE 2 06/17/2011 KRYSTLE WASSERMAN APRN 250.00 DIABETES MELLITUS TYPE 2 06/17/2011 RAMIREZ GHOTRA MD 250.00 DIABETES MELLITUS TYPE 2 06/17/2011 KRYSTLE WASSERMAN APRN 250.00 DIABETES MELLITUS TYPE 2 09/12/2011 YANIRA CRESPO MD 357.9 NEUROPATHY UNSP 09/12/2011 MIO GENTILE DO 357.9 NEUROPATHY UNSP 09/12/2011 KRYSTLE WASSERMAN APRN 357.9 NEUROPATHY UNSP 09/12/2011 KRYSTLE WASSERMAN APRN 357.9 NEUROPATHY UNSP 09/12/2011 MIO GENTILE DO 357.9 NEUROPATHY UNSP 09/12/2011 YANIRA CRESPO MD 357.9 NEUROPATHY UNSP 09/12/2011 357.9 NEUROPATHY UNSP 09/12/2011 357.9 NEUROPATHY UNSP 09/12/2011 357.9 NEUROPATHY UNSP 09/12/2011 357.9 NEUROPATHY UNSP 09/12/2011 357.9 NEUROPATHY UNSP 09/12/2011 YANIRA CRESPO MD 357.9 NEUROPATHY UNSP 09/12/2011 KRYSTLE WASSERMAN APRN 357.9 NEUROPATHY UNSP 09/12/2011 RAMIREZ GHOTRA MD 357.9 NEUROPATHY UNSP 09/12/2011 KRYSTLE WASSERMAN APRN 357.9 NEUROPATHY UNSP 12/09/2011 YANIRA CRESPO MD 787.01 NAUSEA WITH VOMITING 12/09/2011 MIO GENTILE DO 787.01 NAUSEA WITH VOMITING 12/09/2011 KRYSTLE WASSERMAN APRN 787.01 NAUSEA WITH VOMITING 12/09/2011 KRYSTLE WASSERMAN APRN 787.01 NAUSEA WITH VOMITING 12/09/2011 MIO GENTILE DO 787.01 NAUSEA WITH VOMITING 12/09/2011 YANIRA CRESPO MD 787.01 NAUSEA WITH VOMITING 12/09/2011 787.01 NAUSEA WITH VOMITING 12/09/2011 787.01 NAUSEA WITH VOMITING 12/09/2011 787.01 NAUSEA WITH VOMITING 12/09/2011 787.01 NAUSEA WITH VOMITING 12/09/2011 787.01 NAUSEA WITH VOMITING 12/09/2011 YANIRA CRESPO MD 787.01 NAUSEA WITH VOMITING 12/09/2011 KRYSTLE WASSERMAN APRN 787.01 NAUSEA WITH VOMITING 12/09/2011 RAMIREZ GHOTRA MD 787.01 NAUSEA WITH VOMITING 12/09/2011 KRYSTLE WASSERMAN APRN 787.01 NAUSEA WITH VOMITING 12/23/2011 YANIRA CRESPO MD 719.46 KNEE PAIN 12/23/2011 MIO GENTILE DO 719.46 KNEE PAIN 12/23/2011 KRYSTLE WASSERMAN APRN 719.46 KNEE PAIN 12/23/2011 KRYSTLE WASSERMAN APRN 719.46 KNEE PAIN 12/23/2011 MIO GENTILE DO 719.46 KNEE PAIN 12/23/2011 YANIRA CRESPO MD.46 KNEE PAIN 12/23/2011 719.46 KNEE PAIN 12/23/2011 719.46 KNEE PAIN 12/23/2011 719.46 KNEE PAIN 12/23/2011 719.46 KNEE PAIN 12/23/2011 719.46 KNEE PAIN 12/23/2011 YANIRA CRESPO MD 719.46 KNEE PAIN 12/23/2011 KRYSTLE WASSERMAN APRN 719.46 KNEE PAIN 12/23/2011 RAMIREZ GHOTRA MD 719.46 KNEE PAIN 12/23/2011 KRYSTLE WASSERMAN APRN 719.46 KNEE PAIN 02/13/2012 YANIRA CRESPO MD 272.4 HYPERLIPIDEMIA 02/13/2012 GENTILE DOMIO K 272.4 HYPERLIPIDEMIA 02/13/2012 KRYSTLE WASSERMAN APRN 272.4 HYPERLIPIDEMIA 02/13/2012 KRYSTLE WASSERMAN APRN 272.4 HYPERLIPIDEMIA 02/13/2012 GENTILE DOMIO K 272.4 HYPERLIPIDEMIA 02/13/2012 YANIRA CRESPO MD 272.4 HYPERLIPIDEMIA 02/13/2012 272.4 HYPERLIPIDEMIA 02/13/2012 272.4 HYPERLIPIDEMIA 02/13/2012 272.4 HYPERLIPIDEMIA 02/13/2012 272.4 HYPERLIPIDEMIA 02/13/2012 272.4 HYPERLIPIDEMIA 02/13/2012 YANIRA CRESPO MD 272.4 HYPERLIPIDEMIA 02/13/2012 KRYSTLE WASSERMAN APRN 272.4 HYPERLIPIDEMIA 02/13/2012 RAMIREZ GHOTRA MD 272.4 HYPERLIPIDEMIA 02/13/2012 KRYSTLE WASSERMAN APRN 272.4 HYPERLIPIDEMIA 03/21/2012 Ot 250.02 DIAB PRUDENCIO WO COMPL, TYPE II OR UNSPEC TY 03/21/2012 Ot 272.4 HYPERLIPIDEMIA NEC/NOS 03/21/2012 Ot 412 OLD MYOCARDIAL INFARCT 03/21/2012 Ot 414.01 CORONARY ATHEROSCLEROSIS OF [place] CORON 03/21/2012 Ot 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 CORONARY [place] 03/21/2012 Ot 429.9 HEART DISEASE NOS 03/21/2012 Ot 433.10 CAROTID ARTERY OCCLUSION W O CEREBRAL IN 03/21/2012 Ot 435.9 TRANS CEREB ISCHEMIA NOS 03/21/2012 Ot 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,HEMIPLEGIA AFFECTING 03/21/2012 Ot V12.54 PERSONAL HX OF TIA, CEREBRAL INFARCTION 03/21/2012 Ot V45.82 PERCUTANEOUS TRANSLUM CORON ANGIOPLASTY 05/02/2012 Ot 729.89 MUSCSKEL SYMPT LIMB NEC 05/02/2012 Ot V57.21 ENCOUNTER FOR OCCUPATIONAL THERAPY 06/12/2012 Ot 250.00 DIAB PRUDENCIO WO COMPL, TYPE II OR UNSPEC TY 06/12/2012 Ot 831.04 DISLOC ACROMIOCLAVIC-CL 06/12/2012 Ot 924.01 CONTUSION OF HIP 06/12/2012 Ot 959.2 SHLDR/UPPER ARM INJ NOS 06/12/2012 Ot E000.8 OTHER EXTERNAL CAUSE STATUS 06/12/2012 Ot E849.0 ACCIDENT IN HOME 06/12/2012 Ot E884.4 FALL FROM BED 06/12/2012 Ot V12.54 PERSONAL HX OF TIA, CEREBRAL INFARCTION 06/12/2012 Ot V58.67 LONG-TERM ( 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 OF INSULIN 06/12/2012 Ot V58.69 OTH MED,LT, CURRENT USE 06/13/2012 KRYSTLE WASSERMAN APRN 296.90 MOOD DISORDER 06/13/2012 KRYSTLE WASSERMAN APRN 438.9 CVA LATE EFFECTS 06/13/2012 MIO GENTILE DO 296.90 MOOD DISORDER 06/13/2012 MIO GENTILE DO 438.9 CVA LATE EFFECTS 06/13/2012 YANIRA CRESPO MD 296.90 MOOD DISORDER 06/13/2012 YANIRA CRESPO MD 438.9 CVA LATE EFFECTS 06/13/2012 296.90 MOOD DISORDER 06/13/2012 438.9 CVA LATE EFFECTS 06/13/2012 296.90 MOOD DISORDER 06/13/2012 438.9 CVA LATE EFFECTS 06/13/2012 296.90 MOOD DISORDER 06/13/2012 438.9 CVA LATE EFFECTS 06/13/2012 296.90 MOOD DISORDER 06/13/2012 438.9 CVA LATE EFFECTS 06/13/2012 296.90 MOOD DISORDER 06/13/2012 438.9 CVA LATE EFFECTS 06/13/2012 YANIRA CRESPO MD 296.90 MOOD DISORDER 06/13/2012 YANIRA CRESPO MD 438.9 CVA LATE EFFECTS 06/13/2012 KRYSTLE WASSERMAN APRN 296.90 MOOD DISORDER 06/13/2012 KRYSTLE WASSERMAN APRN 438.9 CVA LATE EFFECTS 06/13/2012 RAMIREZ GHOTRA MD 296.90 MOOD DISORDER 06/13/2012 RAMIREZ GHOTRA MD 438.9 CVA LATE EFFECTS 08/14/2012 Ot 250.00 DIAB PRUDENCIO WO COMPL, TYPE II OR UNSPEC TY 08/14/2012 Ot 465.9 ACUTE URI NOS 08/14/2012 Ot 786.50 CHEST PAIN NOS 08/14/2012 Ot 786.59 CHEST PAIN NEC 08/14/2012 Ot V12.54 PERSONAL HX OF TIA, CEREBRAL INFARCTION 08/14/2012 Ot V15.82 HISTORY OF TOBACCO USE 08/14/2012 Ot V58.67 LONG-TERM ( 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 OF INSULIN 08/14/2012 Ot V58.69 OTH MED,LT, CURRENT USE 08/29/2012 Ot 250.00 DIAB PRUDENCIO WO COMPL, TYPE II OR UNSPEC TY 08/29/2012 Ot 438.89 OTH LATE EFFECT-CEREBROVASCULAR DISEASE 08/29/2012 Ot 782.0 SKIN SENSATION DISTURB 08/29/2012 Ot V58.67 LONG-TERM ( 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 OF INSULIN 09/11/2012 458.9 HYPOTENSION UNSPECIFIED 09/11/2012 686.9 UNSPECIFIED LOCAL INFECTION OF SKIN AND SUBCUTANEOUS TISSUE 09/11/2012 458.9 HYPOTENSION UNSPECIFIED 09/11/2012 686.9 UNSPECIFIED LOCAL INFECTION OF SKIN AND SUBCUTANEOUS TISSUE 09/11/2012 458.9 HYPOTENSION UNSPECIFIED 09/11/2012 686.9 UNSPECIFIED LOCAL INFECTION OF SKIN AND SUBCUTANEOUS TISSUE 09/11/2012 458.9 HYPOTENSION UNSPECIFIED 09/11/2012 686.9 UNSPECIFIED LOCAL INFECTION OF SKIN AND SUBCUTANEOUS TISSUE 09/11/2012 YANIRA CRESPO MD 458.9 HYPOTENSION UNSPECIFIED 09/11/2012 YANIRA CRESPO MD 686.9 UNSPECIFIED LOCAL INFECTION OF SKIN AND SUBCUTANEOUS TISSUE 09/11/2012 KRYSTLE WASSERMAN APRN 458.9 HYPOTENSION UNSPECIFIED 09/11/2012 KRYSTLE WASSERMAN APRN 686.9 UNSPECIFIED LOCAL INFECTION OF SKIN AND SUBCUTANEOUS TISSUE 09/11/2012 RAMIREZ GHOTRA MD 458.9 HYPOTENSION UNSPECIFIED 09/11/2012 RAMIREZ GHOTRA MD 686.9 UNSPECIFIED LOCAL INFECTION OF SKIN AND SUBCUTANEOUS TISSUE 09/17/2012 RAMIREZ GHOTRA MD Ot 244.9 HYPOTHYROIDISM NOS 09/17/2012 RAMIREZ GHOTRA MD Ot 250.60 DIAB W NEURO MANIFEST, TYPE II OR UNSPEC 09/17/2012 RAMIREZ GHOTRA MD Ot 272.4 HYPERLIPIDEMIA NEC/NOS 09/17/2012 RAMIREZ GHOTRA MD Ot 305.1 TOBACCO USE DISORDER 09/17/2012 RAMIREZ GHOTRA MD Ot 311 DEPRESSIVE DISORDER NEC 09/17/2012 RAMIREZ GHOTRA MD Ot 357.2 NEUROPATHY IN DIABETES 09/17/2012 RAMIREZ GHOTRA MD Ot 403.90 HYPTNSV CHR KID DIS, UNSPEC, W CHR KD ST 09/17/2012 RAMIREZ GHOTRA MD Ot 412 OLD MYOCARDIAL INFARCT 09/17/2012 RAMIREZ GHOTRA MD Ot 414.00 CORON ATHEROSCLER NOS TYPE VESSEL, NATIV 09/17/2012 RAMIREZ GHOTRA MD Ot 414.8 CHR ISCHEMIC HRT DIS NEC 09/17/2012 RAMIREZ GHOTRA MD Ot 426.3 LEFT BB BLOCK NEC 09/17/2012 RAMIREZ GHOTRA MD Ot 428.0 CONGESTIVE HEART FAILURE NOS 09/17/2012 RAMIREZ GHOTRA MD Ot 428.23 ACUTE CHRONIC SYSTOLIC HRT FAILURE 09/17/2012 RAMIREZ GHOTRA MD Ot 433.10 CAROTID ARTERY OCCLUSION W O CEREBRAL IN 09/17/2012 RAMIREZ GHOTRA MD Ot 438.20 LATE EFF-CEREBR DIS,HEMIPLEGIA AFFECTING 09/17/2012 RAMIREZ GHOTRA MD Ot 458.9 HYPOTENSION NOS 09/17/2012 RAMIREZ GHOTRA MD Ot 486 PNEUMONIA, ORGANISM NOS 09/17/2012 RAMIREZ GHOTRA MD Ot 585.9 CHRONIC KIDNEY DISEASE, UNSPECIFIED 09/17/2012 RAMIREZ GHOTRA MD Ot 593.9 RENAL URETERAL DIS NOS 09/17/2012 RAMIREZ GHOTRA MD Ot 682.7 CELLULITIS OF FOOT 09/17/2012 RAMIREZ GHOTRA MD Ot 787.91 DIARRHEA 09/17/2012 RAMIREZ GHOTRA MD Ot V15.81 HX OF PAST NONCOMPLIANCE 09/17/2012 RAMIREZ GHOTRA MD Ot V45.81 AORTOCORONARY BYPASS 09/21/2012 APRIL ESPINAL, ROCK Fitch Ot 250.00 DIAB PRUDENCIO WO COMPL, TYPE II OR UNSPEC TY 09/21/2012 APRIL ESPINAL, [place] Fitch Ot 275.41 HYPOCALCEMIA 09/21/2012 RADHA CHEN MDIC E Ot 414.00 CORON ATHEROSCLER NOS TYPE VESSEL, NATIV 09/21/2012 RADHA CHEN MDIC E Ot 414.8 CHR ISCHEMIC HRT DIS NEC 09/21/2012 ROCK CHEN MD Ot 426.3 LEFT BB BLOCK NEC 09/21/2012 ROCK CHEN MD E Ot 428.0 CONGESTIVE HEART FAILURE NOS 09/21/2012 ORCK CHEN MD E Ot 428.23 ACUTE CHRONIC SYSTOLIC HRT FAILURE 09/21/2012 ROCK CHEN MD E Ot 438.20 LATE EFF-CEREBR DIS,HEMIPLEGIA AFFECTING 09/21/2012 RADHA CHEN MDIC E Ot 438.89 OTH LATE EFFECT-CEREBROVASCULAR DISEASE 09/21/2012 ROCK CHEN MD E Ot 486 PNEUMONIA, ORGANISM NOS 09/21/2012 ROCK CHEN MD E Ot 585.9 CHRONIC KIDNEY DISEASE, UNSPECIFIED 09/21/2012 RADHA CHEN MDIC E Ot 781.2 ABNORMALITY OF GAIT 09/21/2012 ROCK CHEN MD E Ot 787.20 DYSPHAGIA, UNSPECIFIED 09/21/2012 APRIL ESPINAL ROCK E Ot 787.91 DIARRHEA 09/21/2012 ROCK CHEN MD E Ot V15.81 HX OF PAST NONCOMPLIANCE 09/21/2012 ROCK CHEN MD E Ot V15.82 HISTORY OF TOBACCO USE 09/21/2012 ROCK CHEN MD E Ot V45.81 AORTOCORONARY BYPASS 09/21/2012 ROCK CHEN MD E Ot V57.1 PHYSICAL THERAPY NEC 09/21/2012 ROCK CHEN MD Ot V57.21 ENCOUNTER FOR OCCUPATIONAL THERAPY 09/23/2012 ESTEPHANIE OLIVEIRA MD Ot 300.00 ANXIETY STATE NOS 09/23/2012 ESTEPHANIE OLIVEIRA MD Ot 780.2 SYNCOPE AND COLLAPSE 09/23/2012 ESTEPHANIE OLIVEIRA MD Ot 786.50 CHEST PAIN NOS 09/23/2012 ESTEPHANIE OLIVEIRA MD Ot 793.19 OTHER NONSPECIFIC ABNORMAL FINDING OF [place] 11/21/2012 YANIRA CRESPO MD Ot 438.89 OTH LATE EFFECT-CEREBROVASCULAR DISEASE 11/21/2012 YANIRA CRESPO MD Ot V57.1 PHYSICAL THERAPY NEC 11/21/2012 YANIRA CRESPO MD Ot V57.21 ENCOUNTER FOR OCCUPATIONAL THERAPY 11/22/2012 787.91 DIARRHEA 11/22/2012 YANIRA CRESPO MD 787.91 DIARRHEA 11/22/2012 KRYSTLE WASSERMAN APRN 787.91 DIARRHEA 11/22/2012 RAMIREZ GHOTRA MD 787.91 DIARRHEA 12/06/2012 290.40 VASCULAR DEMENTIA UNCOMPLICATED 12/06/2012 YANIRA CRESPO MD 290.40 VASCULAR DEMENTIA UNCOMPLICATED 12/06/2012 KRYSTLE WASSERMAN APRN T 290.40 VASCULAR DEMENTIA UNCOMPLICATED 12/06/2012 RAMIREZ GHOTRA MD 290.40 VASCULAR DEMENTIA UNCOMPLICATED 01/18/2013 YANIRA CRESPO MD Ot 244.9 HYPOTHYROIDISM NOS 01/18/2013 YANIRA CRESPO MD Ot 250.00 DIAB PRUDENCIO WO COMPL, TYPE II OR UNSPEC TY 01/18/2013 YANIRA CRESPO MD Ot 272.4 HYPERLIPIDEMIA NEC/NOS 01/18/2013 YANIRA CRESPO MD Ot 294.20 DEMENTIA, UNSPECIFIED, WITHOUT BEHAVIORA 01/18/2013 YANIRA CRESPO MD Ot 300.00 ANXIETY STATE NOS 01/18/2013 YANIRA CRESPO MD Ot 311 DEPRESSIVE DISORDER NEC 01/18/2013 YANIRA CRESPO MD Ot 338.29 OTHER CHRONIC PAIN 01/18/2013 YANIRA CRESPO MD Ot 414.01 CORONARY ATHEROSCLEROSIS OF [place] CORON 01/18/2013 YANIRA CRESPO MD Ot 428.0 CONGESTIVE HEART FAILURE NOS 01/18/2013 YANRIA CRESPO MD Ot 438.20 LATE EFF-CEREBR DIS,HEMIPLEGIA AFFECTING 01/18/2013 YANIRA CRESPO MD Ot 585.9 CHRONIC KIDNEY DISEASE, UNSPECIFIED 01/18/2013 YANIRA CRESPO MD Ot 719.41 JOINT PAIN-SHLDER 01/18/2013 YANIRA CRESPO MD Ot 782.3 EDEMA 01/18/2013 YANIRA CRESPO MD, Ot V45.81 AORTOCORONARY BYPASS 01/22/2013 YANIRA CRESPO MD 709.9 UNSPECIFIED DISORDER OF SKIN AND SUBCUTANEOUS TISSUE 01/22/2013 YANIRA CRESPO MD 719.41 PAIN IN JOINT INVOLVING SHOULDER REGION 01/22/2013 KRYSTLE WASSERMAN APRN 709.9 UNSPECIFIED DISORDER OF SKIN AND SUBCUTANEOUS TISSUE 01/22/2013 KRYSTLE WASSERMAN APRN 719.41 PAIN IN JOINT INVOLVING SHOULDER REGION 01/22/2013 RAMIREZ GHOTRA MD 709.9 UNSPECIFIED DISORDER OF SKIN AND SUBCUTANEOUS TISSUE 01/22/2013 BRANDIN ESPINAL, RAMIREZ M 719.41 PAIN IN JOINT INVOLVING SHOULDER REGION 02/13/2013 GERMANIA ROMANP Ot 438.20 LATE EFF-CEREBR DIS,HEMIPLEGIA AFFECTING 02/13/2013 GERMANIA ROMAN Ot V57.21 ENCOUNTER FOR OCCUPATIONAL THERAPY 04/28/2015 OLENA OLIVEIRA MD Ot A41.9 04/28/2015 OLENA OLIVEIRA MD Ot E08.42 04/28/2015 OLENA OLIVEIRA MD Ot F01.51 04/28/2015 OLENA OLIVEIRA MD Ot G47.33 04/28/2015 OLENA OLIVEIRA MD Ot I12.9 04/28/2015 OLENA OLIVEIRA MD Ot I25.5 04/28/2015 OLENA OLIVEIRA MD Ot I50.23 04/28/2015 OLENA OLIVEIRA MD Ot I69.354 04/28/2015 OLENA OLIVEIRA MD Ot I69.391 04/28/2015 OLENA OLIVEIRA MD Ot J18.9 04/28/2015 OLENA OLIVEIRA MD Ot J44.1 04/28/2015 OLENA OLIVEIRA MD Ot J96.00 04/28/2015 OLENA OLIVEIRA MD Ot N17.9 04/28/2015 OLENA OLIVEIRA MD Ot N18.3 04/28/2015 OLENA OLIVEIRA MD Ot Z66 04/28/2015 OLENA OLIVEIRA MD Ot Z87.891 04/28/2015 OLENA OLIVEIRA MD Ot Z95.1 04/29/2015 OLENA OLIVEIRA MD Ot A41.9 04/29/2015 OLENA OLIVEIRA MD Ot E08.42 04/29/2015 OLENA OLIVEIRA MD Ot F01.51 04/29/2015 OLENA OLIVEIRA MD Ot G47.33 04/29/2015 OLENA OLIVEIRA MD Ot I12.9 04/29/2015 OLENA OLIVEIRA MD Ot I25.5 04/29/2015 OLENA OLIVEIRA MD Ot I50.23 04/29/2015 OLENA OLIVEIRA MD Ot I69.354 04/29/2015 OLENA OLIVEIRA MD Ot I69.391 04/29/2015 OLENA OLIVEIRA MD Ot J18.9 04/29/2015 OLENA OLIVEIRA MD Ot J44.1 04/29/2015 OLENA OLIVEIRA MD, Ot J96.00 04/29/2015 OLENA OLIVEIRA MD Ot N17.9 04/29/2015 OLENA OLIVEIRA MD, Ot N18.3 04/29/2015 OLENA OLIVEIRA MD Ot Z66 04/29/2015 OLENA OLIVEIRA MD, Ot Z87.891 04/29/2015 OLENA OLIVEIRA MD, Ot Z95.1 04/29/2015 OLENA OLIVEIRA MD, Ot A41.9 SEPSIS, UNSPECIFIED ORGANISM 04/29/2015 OLENA OLIVEIRA MD, Ot E03.9 HYPOTHYROIDISM, UNSPECIFIED 04/29/2015 OLENA OLIVEIRA MD Ot E08.42 DIABETES DUE TO UNDERLYING CONDITION W D 04/29/2015 OLENA OLIVEIRA MD, Ot E66.9 OBESITY, UNSPECIFIED 04/29/2015 OLENA OLIVEIRA MD, Ot E78.5 HYPERLIPIDEMIA, UNSPECIFIED 04/29/2015 OLENA OLIVEIRA MD Ot F01.51 VASCULAR DEMENTIA WITH BEHAVIORAL DISTUR 04/29/2015 OLENA OLIVEIRA MD, Ot G47.33 OBSTRUCTIVE SLEEP APNEA (ADULT) (PEDIATR 04/29/2015 OLENA OLIVEIRA MD, Ot I12.9 HYPERTENSIVE CHRONIC KIDNEY DISEASE W ST 04/29/2015 OLENA OLIVEIRA MD, Ot I21.4 NON-ST ELEVATION (NSTEMI) MYOCARDIAL INF 04/29/2015 OLENA OLIVEIRA MD, Ot I25.5 ISCHEMIC CARDIOMYOPATHY 04/29/2015 OLENA OLIVEIRA MD Ot I50.23 ACUTE ON CHRONIC SYSTOLIC (CONGESTIVE) H 04/29/2015 OLENA OLIVEIRA MD Ot I69.354 HEMIPLGA FOLLOWING CEREBRAL INFRC AFFECT 04/29/2015 OLENA OLIVEIRA MD Ot I69.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 04/29/2015 OLENA OLIVEIRA MD, Ot J18.9 PNEUMONIA, UNSPECIFIED ORGANISM 04/29/2015 OLENA OLIVEIRA MD, Ot J44.1 CHRONIC OBSTRUCTIVE PULMONARY DISEASE W 04/29/2015 OLENA OLIVEIRA MD Ot J96.00 04/29/2015 OLENA OLIVEIRA MD, Ot J96.01 ACUTE RESPIRATORY FAILURE WITH HYPOXIA 04/29/2015 OLENA OLIVEIRA MD, Ot N17.9 ACUTE KIDNEY FAILURE, UNSPECIFIED 04/29/2015 OLENA OLIVEIRA MD Ot N18.3 CHRONIC KIDNEY DISEASE, STAGE 3 (MODERAT 04/29/2015 OLENA OLIVEIRA MD Ot R65.20 SEVERE SEPSIS WITHOUT SEPTIC SHOCK 04/29/2015 OLENA OLIVEIRA MD Ot Z66 DO NOT RESUSCITATE 04/29/2015 OLENA OLIVEIRA MD Ot Z68.41 BODY MASS INDEX (BMI) 40.0-44.9, ADULT 04/29/2015 OLENA OLIVEIRA MD Ot Z79.4 SENIOR LIVING (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 OF INSULIN 04/29/2015 OLENA OLIVEIRA MD Ot Z87.891 PERSONAL HISTORY OF NICOTINE DEPENDENCE 04/29/2015 OLENA OLIVEIRA MD Ot Z95.1 PRESENCE OF AORTOCORONARY BYPASS GRAFT 05/24/2016 RANDEE EVANS APRN Ot E11.65 TYPE 2 DIABETES MELLITUS WITH HYPERGLYCE 05/24/2016 RANDEE EVANS APRN Ot F32.9 MAJOR DEPRESSIVE DISORDER, SINGLE EPISOD 05/24/2016 RANDEE EVANS APRN Ot I12.9 HYPERTENSIVE CHRONIC KIDNEY DISEASE W ST 05/24/2016 RANDEE EVANS APRN Ot I25.5 ISCHEMIC CARDIOMYOPATHY 05/24/2016 RANDEE EVANS APRN Ot 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 05/24/2016 RANDEE EVANS APRN Ot J44.9 CHRONIC OBSTRUCTIVE PULMONARY DISEASE, U 05/24/2016 RANDEE EAVNS APRN Ot N18.3 CHRONIC KIDNEY DISEASE, STAGE 3 (MODERAT 05/24/2016 RANDEE EVANS APRN Ot Z79.4 FIELD CARE COORDINATOR (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 OF INSULIN 05/24/2016 RANDEE EVANS APRN Ot Z79.84 FIELD CARE COORDINATOR (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 OF ORAL HYPOGLYC 05/24/2016 RANDEE EVANS APRN Ot Z79.899 OTHER FIELD CARE COORDINATOR (CURRENT) DRUG THERAPY 05/24/2016 RANDEE EVANS APRN Ot Z95.1 PRESENCE OF AORTOCORONARY BYPASS GRAFT 05/25/2016 RANDEE EVANS APRN Ot E11.65 TYPE 2 DIABETES MELLITUS WITH HYPERGLYCE 05/25/2016 RANDEE EVANS APRN Ot F32.9 MAJOR DEPRESSIVE DISORDER, SINGLE EPISOD 05/25/2016 RANDEE EVANS APRN Ot I12.9 HYPERTENSIVE CHRONIC KIDNEY DISEASE W ST 05/25/2016 RANDEE EVANS APRN Ot I25.5 ISCHEMIC CARDIOMYOPATHY 05/25/2016 RANDEE EVANS APRN Ot 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 05/25/2016 RANDEE EVANS APRN Ot J44.9 CHRONIC OBSTRUCTIVE PULMONARY DISEASE, U 05/25/2016 RANDEE EVANS APRN Ot N18.3 CHRONIC KIDNEY DISEASE, STAGE 3 (MODERAT 05/25/2016 RANDEE EVANS APRN Ot Z79.4 FIELD CARE COORDINATOR (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 OF INSULIN 05/25/2016 RANDEE EVANS APRN Ot Z79.84 SENIOR LIVING (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 OF ORAL HYPOGLYC 05/25/2016 RANDEE EVANS APRN Ot Z79.899 OTHER FIELD CARE COORDINATOR (CURRENT) DRUG THERAPY 05/25/2016 RANDEE EVANS APRN Ot Z95.1 PRESENCE OF AORTOCORONARY BYPASS GRAFT 05/26/2016 RANDEE EVANS APRN Ot E11.65 TYPE 2 DIABETES MELLITUS WITH HYPERGLYCE 05/26/2016 RANDEE EVANS APRN Ot F32.9 MAJOR DEPRESSIVE DISORDER, SINGLE EPISOD 05/26/2016 RANDEE EVANS APRN Ot I12.9 HYPERTENSIVE CHRONIC KIDNEY DISEASE W ST 05/26/2016 RANDEE EVANS APRN Ot I25.5 ISCHEMIC CARDIOMYOPATHY 05/26/2016 RANDEE EVANS APRN Ot 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 05/26/2016 RANDEE EVANS APRN Ot J44.9 CHRONIC OBSTRUCTIVE PULMONARY DISEASE, U 05/26/2016 RANDEE EVANS APRN Ot N18.3 CHRONIC KIDNEY DISEASE, STAGE 3 (MODERAT 05/26/2016 RANDEE EVANS APRN Ot Z79.4 SENIOR LIVING (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 OF INSULIN 05/26/2016 RANDEE EVANS APRN Ot Z79.84 FIELD CARE COORDINATOR (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 OF ORAL HYPOGLYC 05/26/2016 RANDEE EVANS APRN Ot Z79.899 OTHER FIELD CARE COORDINATOR (CURRENT) DRUG THERAPY 05/26/2016 RANDEE EVANS APRN Ot Z95.1 PRESENCE OF AORTOCORONARY BYPASS GRAFT 05/30/2016 RANDEE EVANS APRN Ot E11.65 TYPE 2 DIABETES MELLITUS WITH HYPERGLYCE 05/30/2016 RANDEE EVANS APRN Ot F32.9 MAJOR DEPRESSIVE DISORDER, SINGLE EPISOD 05/30/2016 RANDEE EVANS APRN Ot I12.9 HYPERTENSIVE CHRONIC KIDNEY DISEASE W ST 05/30/2016 RANDEE EVANS APRN Ot I25.5 ISCHEMIC CARDIOMYOPATHY 05/30/2016 RANDEE EVANS APRN Ot 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 05/30/2016 RANDEE EVANS APRN Ot J44.9 CHRONIC OBSTRUCTIVE PULMONARY DISEASE, U 05/30/2016 RANDEE EVANS APRN Ot N18.3 CHRONIC KIDNEY DISEASE, STAGE 3 (MODERAT 05/30/2016 RANDEE EVANS APRN Ot Z79.4 SENIOR LIVING (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 OF INSULIN 05/30/2016 RANDEE EVANS APRN Ot Z79.84 SENIOR LIVING (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 OF ORAL HYPOGLYC 05/30/2016 RANDEE EVANS APRN Ot Z79.899 OTHER FIELD CARE COORDINATOR (CURRENT) DRUG THERAPY 05/30/2016 RANDEE EVANS APRN Ot Z95.1 PRESENCE OF AORTOCORONARY BYPASS GRAFT 03/15/2017 LIU PHAM MD Ot E78.5 HYPERLIPIDEMIA, UNSPECIFIED 03/15/2017 LIU PHAM MD Ot E78.5 HYPERLIPIDEMIA, UNSPECIFIED 04/04/2017 LIU PHAM MD Ot E03.9 HYPOTHYROIDISM, UNSPECIFIED 04/11/2017 LIU PHAM MD Ot E03.9 HYPOTHYROIDISM, UNSPECIFIED 07/04/2017 Ghazal Toledob W 244.9 UNSPECIFIED HYPOTHYROIDISM 07/04/2017 Ghazal Toledob W 250.00 07/04/2017 Ghazal Toledob W 268.9 UNSPECIFIED VITAMIN D DEFICIENCY 07/04/2017 Toni Toledo A 290.41 07/04/2017 Tre, Toni W 296.24 07/04/2017 Tre, Toni W 401.0 MALIGNANT ESSENTIAL HYPERTENSION 07/04/2017 TreStephenie farrishaib W 414.01 07/04/2017 TreGhazal farrisb W 427.31 ATRIAL FIBRILLATION 07/04/2017 TreGhazal farrisb W 428.9 07/04/2017 Tre, Toni W 438.22 07/04/2017 TreGhazal farrisb W 585.9 07/04/2017 Toni Toledo W E03.9 HYPOTHYROIDISM, UNSPECIFIED 07/04/2017 Ghazal Toledob W E11.9 TYPE 2 DIABETES MELLITUS WITHOUT COMPLICATIONS 07/04/2017 TreStephenieToni W E55.9 VITAMIN D DEFICIENCY, UNSPECIFIED 07/04/2017 Tre Toni A F01.51 07/04/2017 Tre Toni W 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, SINGLE EPSD, SEVERE W PSYCH FEATURES 07/04/2017 TreToni farris W I10 ESSENTIAL (PRIMARY) HYPERTENSION 07/04/2017 TreToni farris W I25.10 ATHSCL HEART DISEASE OF [place] CORONARY ARTERY W/O ANG PCTRS 07/04/2017 TreToni farris W I48.91 UNSPECIFIED ATRIAL FIBRILLATION 07/04/2017 TreToni farris W I50.9 HEART FAILURE, UNSPECIFIED 07/04/2017 TreToni farris W 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 07/04/2017 Toni Toledo W N18.9 CHRONIC KIDNEY DISEASE, UNSPECIFIED 02/09/2018 LIU PHAM MD Ot E03.9 HYPOTHYROIDISM, UNSPECIFIED 02/13/2018 LIU PHAM MD Ot E03.9 HYPOTHYROIDISM, UNSPECIFIED 02/15/2018 FRITZ RICK INTELLECTUAL PROPERTY COUNSEL Ot E11.622 TYPE 2 DIABETES MELLITUS WITH OTHER SKIN 02/15/2018 FRITZ RICK INTELLECTUAL PROPERTY COUNSEL Ot I87.2 VENOUS INSUFFICIENCY (CHRONIC) (PERIPHER 02/15/2018 FRITZ RICK INTELLECTUAL PROPERTY COUNSEL Ot L97.222 NON-PRESSURE CHRONIC ULCER OF LEFT CALF 02/15/2018 FRITZ RICK INTELLECTUAL PROPERTY COUNSEL Ot 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 02/15/2018 FRITZ RICK INTELLECTUAL PROPERTY COUNSEL Ot E11.622 TYPE 2 DIABETES MELLITUS WITH OTHER SKIN 02/15/2018 FRITZ RICK INTELLECTUAL PROPERTY COUNSEL Ot I87.2 VENOUS INSUFFICIENCY (CHRONIC) (PERIPHER 02/15/2018 FRITZ RICK INTELLECTUAL PROPERTY COUNSEL Ot L97.222 NON-PRESSURE CHRONIC ULCER OF LEFT CALF 02/15/2018 FRITZ RICK INTELLECTUAL PROPERTY COUNSEL Ot 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 02/20/2018 LIU PHAM MD Ot E03.9 HYPOTHYROIDISM, UNSPECIFIED 02/20/2018 FRITZ RICK INTELLECTUAL PROPERTY COUNSEL Ot E11.622 TYPE 2 DIABETES MELLITUS WITH OTHER SKIN 02/20/2018 FRITZ RICK APRN Ot I87.2 VENOUS INSUFFICIENCY (CHRONIC) (PERIPHER 02/20/2018 FRITZ RICK APRN Ot L97.222 NON-PRESSURE CHRONIC ULCER OF LEFT CALF 02/20/2018 FRITZ RICK APRN Ot 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 03/02/2018 LUIS ARMANDO MARTINEZ MD, Ot E11.622 TYPE 2 DIABETES MELLITUS WITH OTHER SKIN 03/02/2018 LUIS ARMANDO MARTINEZ MD, Ot 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 03/02/2018 LUIS ARMANDO MARTINEZ MD, Ot I87.2 VENOUS INSUFFICIENCY (CHRONIC) (PERIPHER 03/02/2018 LUIS ARMANDO MARTINEZ MD, Ot L97.222 NON-PRESSURE CHRONIC ULCER OF LEFT CALF 03/02/2018 LUIS ARMANDO MARTINEZ MD, Ot 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 Procedures Code [place] [address] LIPID PANEL 03/14/2012 33367 ECHO 2D 03/14/2012 56801 HEART CATH 03/14/2012 37.22 LEFT HEART CARDIAC CATH 03/19/2012 88.53 LT HEART ANGIOCARDIOGRAM 03/19/2012 88.56 CORONAR ARTERIOGR-2 CATH 03/19/2012 85705 BMP 04/13/2012 90332 LIVER PANEL (LFT) 04/13/2012 LIPOPROT LIPOPROTIEN PANEL 04/13/2012 05353 GLUCOSE FINGER STICK 04/13/2012 30390 A1C (IN-HOUSE) 04/13/2012 59483 MEASURE BLOOD OXYGEN LEVEL 06/21/2012 Cardiolog Ricardo Ta 08/16/2012 64851 ROUTINE VENIPUNCTURE 09/11/2012 73886 CBC 09/11/2012 39982 CMP 09/11/2012 8526024 GFR CALC (RESULT ONLY) 09/11/2012 Physical Occupational Therapy 01/23/2013 06751 BIOPSY SKIN LESION (SINGLE) 02/18/2013 Results Test Result Range Other Culture - 04/10/16 15:24 PRELIM CULTURE RESULTS Moderate Coag Positive Gram Positive JUHI/ID to follow MEDIA PLATED Setup at 15:30 on 04/10/2016 Sensi - 04/10/16 15:24 FINAL CULTURE RESULTS Methicillin Resistant Staphylococcus aureus ( Isolate 1) Ampicillin/Sulbactam <=8/4 Ampicillin >8 Amoxicillin/K Clavulanate >4/2 Ceftriaxone >32 Clindamycin >4 Cefoxitin Screen >4 Ciprofloxacin >2 Daptomycin <=0.5 Erythromycin >4 Nitrofurantoin <=32 Gentamicin <=4 Gentamicin Synergy Screen N/R Inducible Clindamycin N/R Levofloxacin >4 Linezolid 4 Moxifloxacin >4 Oxacillin >2 Penicillin >8 Rifampin <=1 Streptomycin Synergy N/R Synercid <=0.5 Trimethoprim/ Sulfamethoxazole <=0.5/9.5 Tetracycline <=4 Vancomycin 2 Anaerobic Culture - 04/10/16 15:24 ANAEROBIC CULTURE FINAL REPORT RESULT 1 NO ANAEROBIC GROWTH IN 72 HOURS. Complete blood count (CBC) with automated white blood cell (WBC) differential - 05/24/16 17:23 Blood leukocytes automated count (number/volume) 8.9 10*3/uL 4.3-11.0 Blood erythrocytes automated count (number/volume) 4.78 10*6/uL 4.35-5.85 Venous blood hemoglobin measurement (mass/volume) 14.4 g/dL 13.3-17.7 Blood hematocrit (volume fraction) 43 % 40-54 Automated erythrocyte mean corpuscular volume 90 [foz_us] 80-99 Automated erythrocyte mean corpuscular hemoglobin (mass per erythrocyte) 30 pg 25-34 Automated erythrocyte mean corpuscular hemoglobin concentration measurement ( mass/volume) 33 g/dL 32-36 Automated erythrocyte distribution width ratio 13.4 % 10.0-14.5 Automated blood platelet count (count/volume) 193 10*3/uL 130-400 Automated blood platelet mean volume measurement 11.0 [foz_us] 7.4-10.4 Automated blood neutrophils/100 leukocytes 47 % 42-75 Automated blood lymphocytes/100 leukocytes 41 % 12-44 Blood monocytes/100 leukocytes 10 % 0-12 Automated blood eosinophils/100 leukocytes 2 % 0-10 Automated blood basophils/100 leukocytes 0 % 0-10 Blood neutrophils automated count (number/volume) 4.2 10*3 1.8-7.8 Blood lymphocytes automated count (number/volume) 3.6 10*3 1.0-4.0 Blood monocytes automated count (number/volume) 0.9 10*3 0.0-1.0 Automated eosinophil count 0.1 10*3/uL 0.0-0.3 Automated blood basophil count (count/volume) 0.0 10*3/uL 0.0-0.1 Comprehensive metabolic panel - 05/24/16 17:23 Serum or plasma sodium measurement (moles/volume) 135 mmol/L 135-145 Serum or plasma potassium measurement (moles/volume) 5.0 mmol/L 3.6-5.0 Serum or plasma chloride measurement (moles/volume) 102 mmol/L 98-107 Carbon dioxide 25 mmol/L 21-32 Serum or plasma anion gap determination (moles/volume) 8 mmol/L 5-14 Serum or plasma urea nitrogen measurement (mass/volume) 32 mg/dL 7-18 Serum or plasma creatinine measurement (mass/volume) 1.91 mg/dL 0.60-1.30 Serum or plasma urea nitrogen/creatinine mass ratio 17 NRG Serum or plasma creatinine measurement with calculation of estimated glomerular filtration rate 35 NRG Serum or plasma glucose measurement (mass/volume) 509 mg/dL 70-105 Serum or plasma calcium measurement (mass/volume) 8.3 mg/dL 8.5-10.1 Serum or plasma total bilirubin measurement (mass/volume) 0.3 mg/dL 0.1-1.0 Serum or plasma alkaline phosphatase measurement (enzymatic activity/volume) 126 U/L 40-136 Serum or plasma aspartate aminotransferase measurement (enzymatic activity/ volume) 24 U/L 5-34 Serum or plasma alanine aminotransferase measurement (enzymatic activity/volume ) 40 U/L 0-55 Serum or plasma protein measurement (mass/volume) 7.0 g/dL 6.4-8.2 Serum or plasma albumin measurement (mass/volume) 3.5 g/dL 3.2-4.5 THYROID STIMULATING HORMONE - 05/24/16 17:23 THYROID STIMULATING HORMONE 2.01 u[iU]/mL 0.35-4.94 Hemoglobin A1c - 05/24/16 17:23 Hemoglobin A1c 11.9 % 4.5-6.2 Capillary blood glucose measurement by glucometer (mass/volume) - 05/24/16 17: 29 Capillary blood glucose measurement by glucometer (mass/volume) 414 mg/dL 70-110 Complete urinalysis with reflex to culture - 05/24/16 18:29 Urine color determination YELLOW NRG Urine clarity determination SLIGHTLY CLOUDY NRG Urine pH measurement by test strip 6 5-9 Specific gravity of urine by test strip 1.020 1.016- 1.022 Urine protein assay by test strip, semi-quantitative 1+ NEGATIVE Urine glucose detection by automated test strip 4+ NEGATIVE Erythrocytes detection in urine sediment by light microscopy NEGATIVE NEGATIVE Urine ketones detection by automated test strip NEGATIVE NEGATIVE Urine nitrite detection by test strip NEGATIVE NEGATIVE Urine total bilirubin detection by test strip NEGATIVE NEGATIVE Urine urobilinogen measurement by automated test strip (mass/volume) NORMAL NORMAL Urine leukocyte esterase detection by dipstick NEGATIVE NEGATIVE Automated urine sediment erythrocyte count by microscopy (number/high power field) NONE NRG Automated urine sediment leukocyte count by microscopy (number/high power field ) RARE NRG Bacteria detection in urine sediment by light microscopy NEGATIVE NRG Crystals detection in urine sediment by light microscopy NONE NRG Casts detection in urine sediment by light microscopy NONE NRG Mucus detection in urine sediment by light microscopy NEGATIVE NRG Complete urinalysis with reflex to culture NO NRG Capillary blood glucose measurement by glucometer (mass/volume) - 05/24/16 18: 38 Capillary blood glucose measurement by glucometer (mass/volume) 353 mg/dL 70-110 Capillary blood glucose measurement by glucometer (mass/volume) - 05/24/16 19: 51 Capillary blood glucose measurement by glucometer (mass/volume) 322 mg/dL 70-110 THYROID STIMULATING HORMONE - 03/14/17 09:06 THYROID STIMULATING HORMONE 2.24 u[iU]/mL 0.35-4.94 Influenza - 05/19/17 18:46 Influenza NEGATIVE FOR A and B 0.00-0.00 EKG - 06/22/17 16:36 Free T4 - 06/22/17 16:36 Free T4 1.14 ng/dL 0.81-1.61 BNP - 06/22/17 16:36 BNP 223.00 pg/ml 0.00-100.00 MRSA Screen - 06/22/17 16:36 FINAL CULTURE RESULTS MRSA Negative Nasal Culture MEDIA PLATED Setup at 17:29 on 06/22/2017 Rapid Drug Screen,Medical - 06/22/17 19:36 Amphetamine NEGATIVE NEGATIVE Barbiturates NEGATIVE NEGATIVE Benzodiazepines POSITIVE NEGATIVE Cocaine NEGATIVE NEGATIVE Marijuana NEGATIVE NEGATIVE Methylenedioxymethamphetamine NEGATIVE NEGATIVE Opiates NEGATIVE NEGATIVE Oxycodone NEGATIVE NEGATIVE Phencyclidine NEGATIVE NEGATIVE Propoxyphene NEGATIVE NEGATIVE Tricyclic Antidepressant NEGATIVE NEGATIVE Urinalysis - 06/22/17 19:37 Icotest N/A Negative Urine Volume Urine Volume Sufficient (10mL) Urine-Appearance Clear Clear Urine-Bacteria Negative Urine-Bilirubin Negative Negative Urine-Blood Trace-lysed Negative Urine-Color Yellow Colorless-Lt. Yellow Urine-Epithelial Cells 0-5/HPF Urine-Glucose 2+ Negative Urine-Ketones 1+ Negative Urine-Leukocytes Negative Negative Urine-Nitrite Negative Negative Urine-Other Urine Saved if Culture Needed (48hrs from time of collection) Urine-pH 6.0 5-8.5 Urine-Protein Negative Negative Urine-RBC 0-2/HPF Urine-Specific [place] 1.020 1.000-1.030 Urine-WBC 0-2/HPF Urobilinogen 1.0 0.2-1.0 Lipid Panel - 06/23/17 05:20 C/HDL 9.4 3.7-6.7 Cholesterol 254 mg/dL 100-240 HDL 27 mg/dL 30-85 LDL-Calculated 174 mg/dL 0-100 Trig 265 mg/dL 35-160 VLDL 53 mg/dL 0-42 BMP - 07/02/17 05:05 Anion Gap 15 6-14 BUN 29 mg/dL 5-25 Calcium 8.7 mg/dL 8.3-10.4 Chloride 102 mmol/L 95-114 CO2 27 mEq/L 22-33 Creat 1.60 mg/dL 0.50-1.50 eGFR 43 mL/min/1.73m2 >59 Glucose 209 mg/dL 70-110 Osmo 298 280-295 Potassium 4.7 mmol/L 3.5-5.3 Sodium 139 mmol/L 134-148 Valproic Acid - 07/02/17 05:05 Valproic Acid 20.5 ug/mL 55.0-105.0 Microalb/Creat - 09/22/17 16:00 Microalb 123.0 mg/L 0.0-20.0 UMicroalb/UCreat 280.63 mg/g 0.00-100.00 Urine Creatinine 43.8 mg/dl 0.0-50.0 Encounters ACCT No. Visit Date/Time Discharge Status Pt. Type Provider Facility Loc./Unit Complaint [id number] 06/23/2014 11:47:29 06/23/2014 23:59:59 CLS Outpatient Nathen Parker [id number] 04/23/2014 10:07:45 04/23/2014 23:59:59 CLS Outpatient Nathen Parker [id number] 02/27/2014 09:19:41 02/27/2014 23:59:59 CLS Outpatient Nathen Parker [id number] 12/14/2017 09:20:00 12/14/2017 23:59:59 CLS Outpatient YANIRA CRESPO MD [facility] [id number] 02/25/2013 15:23:00 02/25/2013 23:59:59 CLS Outpatient RAMIREZ GHOTRA MD [id number] 02/18/2013 09:44:00 02/18/2013 23:59:59 CLS Outpatient KRYSTLE WASSERMAN APRN [id number] 01/22/2013 16:19:00 01/22/2013 23:59:59 CLS Outpatient YANIRA CRESPO MD [id number] 07/26/2012 15:30:00 07/26/2012 23:59:59 CLS Outpatient YANIRA CRESPO MD [id number] 06/20/2012 09:10:00 06/20/2012 23:59:59 CLS Outpatient MIO GENTILE DO [id number] 06/13/2012 15:27:00 06/13/2012 23:59:59 CLS Outpatient KRYSTLE WASSERMAN APRN [id number] 04/30/2012 08:41:00 04/30/2012 23:59:59 CLS Outpatient KRYSTLE WASSERMAN APRN [id number] 04/19/2012 10:58:00 04/19/2012 23:59:59 CLS Outpatient YANIRA CRESPO MD [id number] 04/12/2012 17:48:00 04/12/2012 23:59:59 [place] [id number] 03/14/2012 08:36:00 03/14/2012 23:59:59 CLS Outpatient KRYSTLE WASSERMAN APRN [id number] 12/06/2012 10:39:00 Document Registration [id number] 10/09/2012 09:21:00 Document Registration [id number] 09/11/2012 11:46:00 Document Registration [id number] 09/11/2012 11:46:00 Document Registration [id number] 08/27/2012 09:52:00 Document Registration [id number] 09/22/2017 18:10:00 09/22/2017 23:59:00 DIS Outpatient Liu Pham [id number] 06/22/2017 16:22:00 07/04/2017 10:00:00 DIS Inpatient Toni Toledo [facility] [id number] 05/19/2017 18:39:00 05/19/2017 23:59:00 DIS Outpatient Liu Pham [id number] 04/10/2016 15:23:00 04/10/2016 23:59:00 DIS Outpatient Liu Pham [id number] 06/22/2017 17:08:40 Document Registration [id number] 02/27/2018 09:15:00 02/27/2018 23:59:59 CLS Outpatient LUIS ARMANDO MARTINEZ MD [facility] [id number] 02/20/2018 09:50:00 02/20/2018 23:59:59 CLS Outpatient FRITZ RICK APRN [facility] LAB I87.2,E11.622 [id number] 02/20/2018 09:02:00 02/20/2018 23:59:59 CLS Outpatient FRITZ RICK INTELLECTUAL PROPERTY COUNSEL [facility] [id number] 02/13/2018 08:14:00 02/13/2018 23:59:59 CLS Outpatient FRITZ RICK APRN [facility] [id number] 03/14/2017 10:04:00 03/14/2017 23:59:59 CLS Outpatient LIU PHAM MD [facility] LABNPT E03.9 [id number] 05/24/2016 17:14:00 05/24/2016 20:33:00 DIS Emergency RANDEE EVANS APRN [facility] ER ELEV GLUCOSE [id number] 04/23/2015 14:00:00 04/29/2015 14:00:00 DIS Inpatient OLENA OLIVEIRA MD [facility] 4TH PNEUMONIA/ELEVATED TROPONIN [id number] 02/04/2013 09:01:00 02/13/2013 11:22:00 DIS Outpatient GERMANIA ROMAN [facility] REH[facility] RESIDUAL L SIDED WEAKNESS S/P STROKE 05/2012 [id number] 01/17/2013 20:50:00 01/18/2013 13:00:00 DIS Inpatient CHERIE ESPINAL, YANIRA Grullon [facility] 4TH CHRONIC PAIN INABILITY TO CARE FOR SELF [id number] 10/15/2012 08:59:00 11/21/2012 00:01:00 DIS Outpatient YANIRA CRESPO MD [facility] CVA [id number] 09/22/2012 22:20:00 09/23/2012 00:04:00 DIS Emergency ROXANNE ESPINAL, ESTEPHANIE Hewitt [facility] ER CHEST PAIN [id number] 09/22/2012 22:26:00 09/22/2012 23:59:59 CLS Emergency [id number] 09/17/2012 10:45:00 09/21/2012 12:55:00 DIS Inpatient APRIL ESPINAL, ROCK Fitch [facility] IRF DEBILITY [id number] 09/12/2012 12:58:00 09/17/2012 10:45:00 DIS Inpatient BRANDIN ESIPNAL, RAMIREZ Edwards [facility] 4TH PNEUMONIA [id number] 03/05/2018 07:31:00 ACT Outpatient MIGUEL ESPINAL, TIAN De La O [facility] CATH PAD,CAD,HTN,HLP [id number] 04/23/2015 11:24:00 Document Registration [id number] 08/29/2012 00:03:00 Document Registration [id number] 08/14/2012 02:09:00 Document Registration [id number] 06/12/2012 08:08:00 Document Registration [id number] 05/02/2012 08:09:00 Document Registration [id number] 03/20/2012 14:49:00 Document Registration [id number] 03/29/2011 15:55:00 Document Registration
[2018-03-05] MEDS ORDERED: NS IV 1000 ML 1,000 ML ONE ×2 (07:48→10:54)
[2018-03-05] MEDS ORDERED: LIDOCAINE 1% INJ 20 ML 20 ML VIAL ONE (07:48)
[2018-03-05] MEDS ORDERED: HEParin (CATH LAB) 2,000 ML IV ONE (07:48)
[2018-03-05] MEDS ORDERED: NS IV 1000 ML 1,000 ML IV SCH (08:12)
[2018-03-05 08:23] LABS: HEMOGLOBIN 14.6 G/DL (13.3-17.7); MEAN PLATELET VOLUME 10.8 FL (7.4-10.4); RED BLOOD COUNT 5.02 10^6/uL (4.35-5.85); RED CELL DISTRIBUTION WIDTH 13.9 % (10.0-14.5); WHITE BLOOD COUNT 9.9 10^3/uL (4.3-11.0)
--- NOTE | 2018-03-05 08:39 | Cardiac Procedure Note-CS/ASA ---
Pre-Procedure Note Pre-Op Procedure Note H&P Reviewed The H&P was reviewed, patient examined and no changes noted. Date H&P Reviewed: Mar 05, 2018 Time H&P Reviewed: 08:39 Conscious Sedation Pre-Proced Time 08:39 ASA Score 3 For ASA 3 and 4: Consider anesthesia and medical clearance. Also, for patients with a history of failed moderate sedation consider anesthesia. Airway Lungs Heart ASA score ASA 1: a normal healthy patient ASA 2: a patient with a mild systemic disease (mid diabetes, controlled hypertension, obesity x ASA 3: a patient with a severe systemic disease that limits activity (angina , COPD, prior Myocardial infarction) ASA 4: a patient with an incapacitating disease that is a constant threat to life (CHF, renal failure) ASA 5: a moribund patient not expected to survive 24 hrs. (ruptured aneurysm) ASA 6: a declared brain patient whose organs are being harvested. For emergent operations, add the letter E after the classification Mallampati Classification Grade 3 Sedation Plan Analgesia, Amnesia, Plan communicated to team members, Discussed options with patient/fam, Discussed risks with patient/fam The patient is an appropriate candidate to undergo the planned procedure, sedation, and anesthesia. The patient immediately re-assessed prior to indication. TIAN RIVERA MD Mar 05, 2018 08:39
[2018-03-05] MEDS ORDERED: MIDAZOLAM 5 MG/5 ML (VERSED) VIAL ONE ×2 (08:41→10:30)
[2018-03-05] MEDS ORDERED: fentaNYL INJECTION 100 MCG/2 ML AMP ONE ×2 (08:41→10:45)
[2018-03-05] MEDS ORDERED: HEParin 1000 UNIT/ML (10ML VIAL) FOR BOLUS ONE (08:41)
[2018-03-05 08:42] LABS: PROTHROMBIN TIME PATIENT 13.2 SEC (12.2-14.7)
[2018-03-05 08:48] LABS: ALBUMIN 3.9 GM/DL (3.2-4.5); BILIRUBIN,TOTAL 0.5 MG/DL (0.1-1.0); CALCIUM 9.2 MG/DL (8.5-10.1); CREATININE SERUM 1.61 MG/DL (0.60-1.30); POTASSIUM 4.8 MMOL/L (3.6-5.0); TOTAL PROTEIN 7.5 GM/DL (6.4-8.2)
--- NOTE | 2018-03-05 09:02 | Diagnostic Imaging Report ---
Indication: Preop for peripheral angioplasty. Time of exam: 8:34 AM Correlation is made with prior study from 05/24/2016. Changes of median sternotomy are noted. Lungs appear clear. No infiltrate or failure is detected. No effusion or pneumothorax is seen. Impression: Stable chest. No acute cardiopulmonary process is detected. Dictated by: Dictated on workstation # [id number]
[2018-03-05] MEDS ORDERED: ECON15CR TP (09:50)
[2018-03-05] MEDS ORDERED: LEVO150T6 PO (09:50)
[2018-03-05] MEDS ORDERED: MELA3TAB PO (09:50)
[2018-03-05] MEDS ORDERED: INSU100V5 SQ (09:50)
[2018-03-05] MEDS ORDERED: APIX5TAB PO (09:50)
[2018-03-05] MEDS ORDERED: VNL75T PO (09:50)
[2018-03-05] MEDS ORDERED: LACT20SO2 PO (09:50)
[2018-03-05] MEDS ORDERED: INSU100V16 SQ (09:50)
[2018-03-05] MEDS ORDERED: MULT-35 PO (09:50)
[2018-03-05] MEDS ORDERED: LORA10TA7 PO (09:50)
[2018-03-05] MEDS ORDERED: GABA-488 PO (09:50)
[2018-03-05] MEDS ORDERED: LOPE-134 PO (09:50)
[2018-03-05] MEDS ORDERED: DIVA125C10 PO (09:50)
[2018-03-05] MEDS ORDERED: METO-333 PO (09:50)
[2018-03-05] MEDS ORDERED: BUSP5TAB59 PO (09:50)
[2018-03-05] MEDS ORDERED: GUAI100L36 PO (09:50)
[2018-03-05] MEDS ORDERED: IBUP-1780 PO (09:50)
[2018-03-05] MEDS ORDERED: NITRO DRIP 25000 MCG/D5W 250 ML IV ONE (10:15)
[2018-03-05] MEDS ORDERED: proPOfol 200 MG/20 ML (DIPRIVAN) VIAL IV ONE ×2 (10:52→11:01)
[2018-03-05] MEDS ORDERED: ACETAMINOPHEN 325 MG TABLET PO PRN (11:45)
[2018-03-05] MEDS ORDERED: HYDROcodone/APAP 5 MG/325 MG (LORTAB) TAB PO PRN (11:45)
[2018-03-05] MEDS ORDERED: PATIENT MAY USE OWN MEDS, ALL PO SCH (11:45)
--- NOTE | 2018-03-05 11:45 | Peripheral Report ---
Peripheral Report Physician (s)/Client Experience Manager (s) Physician TIAN RIVERA MD Pre-Procedure Diagnosis Pre-Procedure Diagnosis: Peripheral arterial disease, ischemic foot ulcer Post-Procedure Note Procedure Start Date: Mar 05, 2018 Name of Procedure: Bilateral lower extremity runoff Balloon angioplasty to the popliteal artery Balloon angioplasty to the peroneal artery Drug coated balloon Findings/Procedure Note PROCEDURE NOTE: After explaining the procedure to the patient, all pros and cons were explained , all questions were answered. The patient signed the consent and then he was placed on the cardiac catheterization laboratory. The patient was placed on the cardiac catheterization laboratory. Groin was prepped SL fashion local anesthesia was used. Sheath placed in the right femoral artery. Right lower extremity runoff was done through the sheath Crossover with UF catheter was done then exchanged to a straight catheter, runoff to the left lower extremity was done. Patient was given heparin boluses, sheath was exchanged into a 6 Arabic 55 sheath A straight catheter was advanced to the popliteal artery and angiogram was done then I tried to cross the lesion with multiple wires, patient has occlusion of the anterior tibial artery posterior tibial artery and peroneal artery. I was unable to cross the anterior tibial artery, after multiple attempts and the use of multiple different wire I was able to advance command 18 wire in the peroneal artery down to the foot, balloon angioplasty using 2040 mm was initiated then advanced to 3.0 x 100 mm, multiple inflations were done then I did balloon angioplasty to the popliteal artery using 5.0150 mm then drug- coated balloon 4.0150 mm with excellent results. At the end of the procedure sheath was removed, Mynx deployed, patient was very uncooperative, moving all over the place, anesthesia or cold. The procedure. FINDINGS: Right lower extremity, diffuse atherosclerotic disease down to the trifurcation , occlusion beyond the trifurcation Left lower extremity, diffuse atherosclerotic disease, severe stenosis at the distal SFA and popliteal artery, total occlusion of the 3 vessels beyond the trifurcation, successful balloon angioplasty to the peroneal artery using multiple balloons then balloon angioplasty to the popliteal artery using drug- coated balloon with excellent results. Improvement in the flow down to the ankle. CONCLUSIONS: 1. Total occlusion of the 3 vessels below the trifurcation bilaterally 2. Successful balloon angioplasty to the left peroneal artery and left popliteal artery using drug-coated balloon to the popliteal artery with excellent results DISCUSSION AND RECOMMENDATIONS: Continue to maximize medical therapy Anesthesia Type: Conscious Sedation Estimated blood loss (mL): 30 ml Contrast Amount: 80 ml Total Radiation Dose: 620 mGy Post-Procedure Diagnosis Post-operative diagnosis: Ischemic foot ulcer Peripheral arterial disease Coronary artery disease Hypertension Hyperlipidemia TIAN RIVERA MD Mar 05, 2018 11:44
[2018-03-05] MEDS ORDERED: LACTULOSE SYRUP 10GM/15ML (ENULOSE) 30ML UDC PO PRN (14:00)
[2018-03-05] MEDS: DIVALPROX SPRINKLE 125 MG (DEPAKOTE) CAP PO SCH ×2 (15:07→20:25)
[2018-03-05] MEDS: NS IV 1000 ML 1,000 ML IV SCH (15:07)
[2018-03-05] MEDS: GABAPENTIN 300 MG (NEURONTIN) CAP PO SCH ×2 (15:07→20:26)
[2018-03-05] MEDS: inSUlin ASPART (NovoLOG) 1 UNIT/0.01 ML (CHARGE PER UNIT) SC SCH (17:40)
[2018-03-05] MEDS ORDERED: RIVASTIGMINE 9.5 MG PATCH (EXELON) NON-FORMULARY TD SCH (20:00)
[2018-03-05] MEDS: APIXABAN 5 MG (ELIQUIS) TABLET PO SCH (20:25)
[2018-03-05] MEDS: busPIRone 5 MG (BUSPAR) TAB PO SCH (20:25)
[2018-03-05] MEDS: VENlafaxine 75 MG (EFFEXOR) TAB PO SCH (20:25)
[2018-03-05] MEDS: meTOprolol TARTRATE 25 MG (LOPRESSOR) TABLET PO SCH (20:26)
[2018-03-05] MEDS: inSUlin DETERMIR 1 UNIT/0.01 ML (LEVEMIR) CHARGE PER UNIT SQ SCH (20:28)
[2018-03-05] MEDS ORDERED: MELATONIN 3 MG TABLET PO SCH (21:00)
[2018-03-05] MEDS ORDERED: FAMOTIDINE 20 MG (PEPCID) TABLET PO SCH (21:00)
[2018-03-06] VITALS (13 sets, daily range): BP systolic 83–173; BP diastolic 49–91
[2018-03-06] MEDS: NS IV 1000 ML 1,000 ML IV SCH (03:25)
[2018-03-06 04:24] LABS: CALCIUM 8.1 MG/DL (8.5-10.1); CREATININE SERUM 1.38 MG/DL (0.60-1.30); POTASSIUM 4.6 MMOL/L (3.6-5.0)
[2018-03-06] MEDS ORDERED: LEVOTHYROXINE 150 MCG (LEVOTHROID) TAB PO SCH (05:30)
[2018-03-06] MEDS ORDERED: ASPI-983 PO (05:50)
[2018-03-06] MEDS ORDERED: CLOP75TA28 PO (05:50)
[2018-03-06] MEDS ORDERED: ATOR20TA49 PO (05:50)
--- NOTE | 2018-03-06 05:51 | Discharge Inst-Post CATH ---
Discharge Inst-CATH Post Cardiac Cath D/C Inst Follow Up/Plan Appointment with Dr. Sneed's office on 2017 at [address] Palomo's office in 2 weeks CARDIAC CATH DISCHARGE INSTRUCTIONS *Hold Metformin for 48 hours post heart cath. ACTIVITY * Go Home directly and rest. * Limit activity of the leg (or wrist if it was used) for 7 days including aerobics, swimming, jogging, bicycling, etc. * Restrict stair-climbing for 7 days if possible, if not, climb up with your non -cath leg, then bring together on the same step. * Avoid lifting, pushing, pulling or excessive movement of the affected extremity for 7 days. * Customary sexual activity may be resumed after 2 days-use caution not to use a position that strains or causes pain to the affected extremity. * No driving for 24 hours. * NO SMOKING. * Avoid straining for bowel movements for 7 days. * Gentle walking on level ground is allowed. * Returning to work will depend on the type of procedure and the results. Your doctor will discuss this with you. CALL YOUR DOCTOR FOR ANY OF THE FOLLOWING: *If bleeding from the puncture site occurs- Apply gentle pressure to site with clean cloth and call your doctor or EMS. * If a knot or lump forms under the skin, increases in size, or causes pain. * If bruising appears to be worsening or moving further down your leg instead of disappearing. * Temperature above 101 F. CARE OF YOUR GROIN INCISION; * Bruising or purple discoloration of the skin near the puncture site is common. * You may shower only, no bathtub bathing for 5 days. Be careful to avoid slipping as your leg may feel stiff. * If a closure device was used on your femoral artery, please see the attached guide regarding care of the device and your leg. * Leave the dressing on, until removed by office staff. CARE OF YOUR WRIST INCISION; * Bruising or purple discoloration of the skin near the puncture site is common. * You may shower. * DO NOT submerge wrist. * Leave dressing on, until removed by office staff.. TIAN SNEED MD Mar 06, 2018 05:51
--- NOTE | 2018-03-06 05:54 | Cardiology Progress Note ---
Subjective Date Seen by Provider: Mar 06, 2018 Time Seen by Provider: 05:52 Subjective/Events-last exam Patient is laying down in bed, feeling better. No new complaint. Groin is healing well Review of Systems General: No Chills, No Night Sweats, No Fatigue, No Malaise, No Appetite, No Other HEENT: No Head Aches, No Visual Changes, No Eye Pain, No Ear Pain, No Dysphasia , No Sinus Congestion, No Post Nasal Drip, No Sore Throat, No Other Pulmonary: No Dyspnea, No Cough, No Pleuritic Chest Pain, No Other Cardiovascular: No: Chest Pain, Palpitations, Orthopnea, Paroxysmal Noc. Dyspnea, Edema, Lt Headedness, Other Objective-Cardiology Exam Last Set of Vital Signs Vital Signs 03/06/18 04:00 Temp 97.0 Pulse 73 Resp 16 B/P (MAP) 125/68 (87) Pulse Ox 94 O2 Delivery Nasal Cannula O2 Flow Rate 2.00 Capillary Refill : Less Than 3 Seconds I&O Intake and Output 03/06/18 00:00 Output Total 250 ml Balance -250 ml Output Urine Total 250 ml General: Alert, Oriented X3, Cooperative HEENT: Atraumatic, PERRLA Neck: Supple, No JVD, No Thyromegaly Lungs: Clear to Auscultation, Normal Air Movement Heart: Regular Rate, Normal S1, Normal S2, No Murmurs Abdomen: Normal Bowel Sounds, Soft, No Tenderness, No Hepatosplenomegaly, No Masses Extremities: No Clubbing, No Cyanosis, No Edema, No Tenderness/Swelling, Other (Diminished pulse, left foot is warm, ulcer) Skin: No Rashes, No Breakdown, No Significant Lesion Neuro: Normal Gait, Normal Speech, Strength at 5/5 X4 Ext, Normal Tone, Sensation Intact Psych/Mental Status: Mental Status NL, Mood NL Results Lab Laboratory Tests 03/05/18 08:10 03/06/18 03:00 A/P-Cardiology Admission Diagnosis Peripheral arterial disease Nonhealing foot ulcer Coronary artery disease Hypertension Hyperlipidemia Assessment/Plan Peripheral arterial disease nonhealing foot ulcer on the left, GISELLA is abnormal, angiogram done. 1. Total occlusion of the 3 vessels below the trifurcation bilaterally 2. Successful balloon angioplasty to the left peroneal artery and left popliteal artery using drug-coated balloon to the popliteal artery with excellent results Coronary artery disease history of CABG 3 in 2012. Clinically stable, followed by Dr. Palomo Carotid stenosis, history of carotid endarterectomy Hypertension, restarted home medication, monitor blood pressure Hyperlipidemia, poorly controlled. I will start Lipitor 20 mg daily and monitor Questionable history of atrial fibrillation in the past maintained on Eliquis, managed by Dr. Dewey RIVERA,TIAN De La O MD Mar 06, 2018 05:54
[2018-03-06] MEDS ORDERED: MULTIVIT W/MINERALS TAB (THERAGRAN M) PO SCH (07:00)
[2018-03-06] MEDS ORDERED: LORATADINE (CLARITIN) 10 MG TAB PO SCH (09:00)
[2018-03-06] MEDS ORDERED: CLOPIDOGREL 75 MG (PLAVIX) TABLET PO SCH (09:00)
[2018-03-06] MEDS ORDERED: ASPIRIN E.C. 81 MG (ECOTRIN) TAB PO SCH (09:00)
[2018-03-06] MEDS: inSUlin ASPART (NovoLOG) 1 UNIT/0.01 ML (CHARGE PER UNIT) SC SCH ×2 (09:31→12:10)
[2018-03-06] MEDS: inSUlin DETERMIR 1 UNIT/0.01 ML (LEVEMIR) CHARGE PER UNIT SQ SCH (09:31)
[2018-03-06] MEDS: VENlafaxine 75 MG (EFFEXOR) TAB PO SCH (09:31)
[2018-03-06] MEDS: GABAPENTIN 300 MG (NEURONTIN) CAP PO SCH ×2 (09:32→13:05)
[2018-03-06] MEDS: meTOprolol TARTRATE 25 MG (LOPRESSOR) TABLET PO SCH (09:32)
[2018-03-06] MEDS: busPIRone 5 MG (BUSPAR) TAB PO SCH (09:32)
[2018-03-06] MEDS: APIXABAN 5 MG (ELIQUIS) TABLET PO SCH (09:32)
[2018-03-06] MEDS: DIVALPROX SPRINKLE 125 MG (DEPAKOTE) CAP PO SCH ×2 (09:45→13:05)
--- NOTE | 2018-03-06 11:30 | Pulmonary Consultation ---
History of Present Illness History of Present Illness Date of Consultation 03/06/18 11:30 Date of Admission Allergies and Home Medications Allergies Coded Allergies: morphine (Verified Adverse Reaction, Intermediate, psychosis, 09/12/12) Home Medications Acetaminophen 325 Mg Tablet, 650 MG PO Q4H PRN for PAIN-MILD OR TEMPATURE, ( Reported) Apixaban 5 Mg Tablet, 5 MG PO BID, (Reported) Aspirin 81 Mg Tablet.dr, 81 MG PO DAILY Prescribed by: TIAN RIVERA on 03/06/18 0550 Atorvastatin Calcium 20 Mg Tablet, 20 MG PO DAILY Prescribed by: TIAN RIVERA on 03/06/18 0550 Buspirone HCl 5 Mg Tablet, 5 MG PO BID, (Reported) Cholecalciferol (Vitamin D3) 2,000 Unit Capsule, 2,000 UNIT PO DAILY, (Reported) Clopidogrel Bisulfate 75 Mg Tablet, 75 MG PO DAILY Prescribed by: TIAN RIVERA on 03/06/18 0550 Divalproex Sodium 125 Mg Cap.sprink, 125 MG PO TID, (Reported) Econazole Nitrate 15 Gm Cream..g., TP HS, (Reported) APPLY TO LEFT FOREARM AND HAND Gabapentin 300 Mg Capsule, 600 MG PO TID, (Reported) TAKES 2 (300MG) CAPSULES Guaifenesin 100 Mg/5 Ml Liquid, 10 ML PO Q8H PRN for COUGH, (Reported) Hydrocodone Bit/Acetaminophen 1 Each Tablet, 1 TAB PO Q8H PRN for PAIN-MODERATE, (Reported) Insulin Aspart 100 Unit/1 Ml Susp, 10 UNIT SQ TIDAC, (Reported) Insulin Determir 1,000 Units/10 Ml Soln, 38 UNITS SQ BID, (Reported) Lactulose 20 Gm/30 Ml Solution, 15 ML PO Q12H PRN for CONSTIPATION-3RD LINE, ( Reported) Levothyroxine Sodium 150 Mcg Tablet, 150 MCG PO 0530, (Reported) Loperamide HCl 2 Mg Tablet, PO UD PRN for DIARRHEA, (Reported) Loratadine 10 Mg Tablet, 10 MG PO DAILY, (Reported) Melatonin 3 Mg Tablet, 3 MG PO HS, (Reported) Metoprolol Tartrate 25 Mg Tablet, 25 MG PO BID, (Reported) Multivitamin 1 Each Tablet, 1 TAB PO DAILY, (Reported) Ranitidine HCl 150 Mg Tablet, 150 MG PO HS, (Reported) Rivastigmine 1 Each Patch.td24, 9.5 MG TD 1999, (Reported) Venlafaxine HCl 75 Mg Tab, 75 MG PO BID, (Reported) Past Xxzvagb-Ndecrv-Osfvkd Hx Patient Social History Smoking Status: Former Smoker Type Used: Cigarettes Recent Foreign Travel: No Contact w/Someone Who Travel: No Recent Infectious Disease Expo: No Recent Hopitalizations: No Immunizations Up To Date Date of Pneumonia Vaccine: Mar 15, 2012 Date of Influenza Vaccine: Jan 27, 2018 Past Medical History CABG Pneumonia, Sleep Apnea Currently Using CPAP: No Coronary Artery Disease, High Cholesterol, Hypertension, Peripheral Vascular Stroke Reproductive Disorders: No (unknown) Sexually Transmitted Disease: No (unknown) HIV/AIDS: No Kidney Infection, Kidney Stones, Renal Failure Gastroesophageal Reflux, Gastrointestinal Bleed, Hiatal Hernia, Ulcer Arthritis Diabetes, Insulin dep, Hypothyroidsim Sleep Difficulties, Anxiety, Depression Adverse Reaction/Blood Tranf: No Family Medical History Cardiovascular disease 19 MOTHER Completed stroke 19 FATHER 19 MOTHER FH: emphysema Heart Disease, Diabetes Sepsis Event Evaluation Height, Weight, BMI Height: 6'4.00" Weight: 300lbs. 0.0oz. 136.536760ul; 36.5 BMI Method:Stated Exam Exam Vital Signs Date Time Temp Pulse Resp B/P (MAP) Pulse Ox O2 Delivery O2 Flow Rate FiO2 03/06/18 11:28 97.6 Nasal Cannula 2.00 03/06/18 10:00 80 14 162/91 (114) 95 Nasal Cannula 2.00 03/06/18 09:00 79 13 141/70 (93) 92 Nasal Cannula 2.00 03/06/18 08:26 Nasal Cannula 2.00 03/06/18 08:25 86 Room Air 03/06/18 08:10 98.3 Room Air 03/06/18 08:00 82 11 83/49 (60) 93 Nasal Cannula 2.00 03/06/18 07:00 81 03/06/18 07:00 80 14 139/72 (94) 92 Nasal Cannula 2.00 03/06/18 06:00 82 10 173/83 (113) 97 Nasal Cannula 2.00 03/06/18 05:00 80 11 144/72 (96) 94 Nasal Cannula 2.00 03/06/18 04:00 97.0 03/06/18 04:00 73 16 125/68 (87) 94 Nasal Cannula 2.00 03/06/18 02:00 71 13 123/64 (83) 96 Nasal Cannula 2.00 03/06/18 01:00 71 03/06/18 01:00 71 16 127/70 (89) 96 Nasal Cannula 2.00 03/06/18 00:00 74 13 112/63 (79) 96 Nasal Cannula 2.00 03/06/18 00:00 96.3 Nasal Cannula 2.00 03/05/18 23:00 81 14 127/65 (85) 94 Room Air 03/05/18 22:00 77 12 123/59 (80) 92 Room Air 03/05/18 21:00 88 14 153/104 (120) 93 Room Air 03/05/18 20:00 96 Nasal Cannula 2.00 03/05/18 19:43 97.3 89 10 177/99 (125) 95 Room Air 03/05/18 19:00 84 13 184/90 (121) 93 Nasal Cannula 2.00 03/05/18 18:58 81 03/05/18 18:00 80 11 182/98 (126) 94 Nasal Cannula 2.00 03/05/18 17:00 75 11 185/109 (134) 93 Nasal Cannula 2.00 03/05/18 16:00 77 16 146/92 (110) 98 Nasal Cannula 2.00 03/05/18 15:00 82 13 158/89 (112) 99 Nasal Cannula 2.00 03/05/18 14:00 97.7 84 15 157/94 (115) 100 Nasal Cannula 2.00 03/05/18 13:30 80 15 157/87 (110) 99 Nasal Cannula 2.00 03/05/18 13:00 77 9 154/90 (111) 98 Nasal Cannula 2.00 03/05/18 13:00 76 03/05/18 12:45 73 12 147/90 (109) 98 Nasal Cannula 2.00 03/05/18 12:30 75 13 134/83 (100) 96 Nasal Cannula 2.00 03/05/18 12:15 69 17 111/77 (88) 93 Nasal Cannula 2.00 03/05/18 12:10 96 Nasal Cannula 2.00 03/05/18 12:10 97.7 Nasal Cannula 2.00 03/05/18 12:04 70 I & O 03/06/18 07:00 Intake Total 1000 ml Output Total 500 ml Balance 500 ml Height & Weight Height: 6'4.00" Weight: 300lbs. 0.0oz. 136.296696qh; 36.5 BMI Method:Stated Capillary Refill: Less Than 3 Seconds Results Lab Laboratory Tests 03/05/18 08:10 03/06/18 03:00 Assessment/Plan Assessment/Plan Morbid obesity with probable SUSHIL -will plan for out patient PSG EDS, snoring, witnessed apnea, CAD PVD with nonhealing foot ulcer on the left s/p angioplasty CONNER FIGUEROA DO Mar 06, 2018 11:30
== END 2018-03-06 13:40 | disposition home or self-care (01) ==
LOC: CATH 07:31 → ICU 12:15 → CATH 03-06 13:40
PROVIDERS: ATTEND Internal Medicine Cardiovascular Disease
DX: I70.244 Atherosclerosis of native arteries of left leg with ulceration of heel and midfoot (principal); L97.529 Non-pressure chronic ulcer of other part of left foot with unspecified severity; I70.201 Unspecified atherosclerosis of native arteries of extremities, right leg; E11.621 Type 2 diabetes mellitus with foot ulcer; I25.10 Atherosclerotic heart disease of native coronary artery without angina pectoris; I10 Essential (primary) hypertension; E78.5 Hyperlipidemia, unspecified; I69.354 Hemiplegia and hemiparesis following cerebral infarction affecting left non-dominant side; E03.9 Hypothyroidism, unspecified; E66.01 Morbid (severe) obesity due to excess calories; Z68.35 Body mass index [BMI] 35.0-35.9, adult; Z79.01 Long term (current) use of anticoagulants; Z79.4 Long term (current) use of insulin; Z79.899 Other long term (current) drug therapy
CPT/HCPCS: 36415; 71045; 75716; 80048; 80053; 80061; 82962; 85027; 85610; 85730; 87081; 93005

== ENCOUNTER → 2018-03-13 | Outpatient (CLI) | payer MEDICARE, MEDICAID ==
[~2018-03-13] MED LIST changes: +ASPI-983 PO; +ATOR20TA49 PO; +BUSP5TAB59 PO; +DIVA125C10 PO; +ECON15CR TP; +GABA-488 PO; +GUAI100L36 PO; +IBUP-1780 PO; +INSU100V16 SQ; +INSU100V5 SQ; +LACT20SO2 PO; +LEVO150T6 PO; +LOPE-134 PO; +LORA10TA7 PO; +MELA3TAB PO; +MULT-35 PO; +VNL75T PO
--- NOTE | 2018-03-13 13:40 | Diagnostic Imaging Report ---
INDICATION: Diabetic ulcer left ankle. EXAMINATION: AP, oblique, and lateral views of the left ankle are obtained. FINDINGS: No fracture or acute bony abnormality is seen. There is osteophyte formation of the medial malleolus of the distal tibia. There is posterior and plantar calcaneal spurring. There is no erosive bony lesion. IMPRESSION: Chronic findings as above with no acute bony abnormality or erosive bony lesion. Dictated by: Dictated on workstation # [id number]
== END ==
LOC: RAD 10:15
PROVIDERS: ATTEND Nurse Practitioner
DX: E11.622 Type 2 diabetes mellitus with other skin ulcer (principal); L97.322 Non-pressure chronic ulcer of left ankle with fat layer exposed; L97.222 Non-pressure chronic ulcer of left calf with fat layer exposed; I70.243 Atherosclerosis of native arteries of left leg with ulceration of ankle; I87.2 Venous insufficiency (chronic) (peripheral); M25.772 Osteophyte, left ankle; M77.32 Calcaneal spur, left foot
CPT/HCPCS: 73610

== ENCOUNTER → 2018-03-13 | Outpatient (CLI) | payer MEDICARE, MEDICAID ==
--- NOTE | 2018-03-05 11:53 | Anesthesia-Procedure Note ---
Procedures/Interventions Procedure Start/Stop/Diagnosis Date of Procedure: Mar 05, 2018 Start Time: 11:00 Stop Time: 11:30 Additional Procedures Procedures Consulted for rescue sedation per Dr. Sneed. History obtained from label remover staff. Propofol 250mg IV given over 30 minutes VSS cherie procedure well. Report to RN care assumed. RENETTA VALLE CRNA Mar 05, 2018 11:53
--- NOTE | 2018-03-05 11:54 | Anesthesia-General Post-Op ---
MAC Patient Condition Mental Status/LOC: Same as Preop Cardiovascular: Satisfactory Nausea/Vomiting: Absent Respiratory: Satisfactory Pain: Controlled Complications: Absent Post Op Complications Complications None Follow Up Care/Instructions Patient Instructions None needed. Anesthesiology Discharge Order Discharge Order Patient is doing well, no complaints, stable vital signs, no apparent adverse anesthesia problems. No complications reported per nursing. RENETTA VALLE CRNA Mar 05, 2018 11:54
== END ==
LOC: WOUNDCARE 09:04
PROVIDERS: ATTEND Nurse Practitioner
DX: L97.322 Non-pressure chronic ulcer of left ankle with fat layer exposed (principal); L97.222 Non-pressure chronic ulcer of left calf with fat layer exposed; I70.243 Atherosclerosis of native arteries of left leg with ulceration of ankle; I87.2 Venous insufficiency (chronic) (peripheral)
CPT/HCPCS: 11042; 87070; 87075; 87077; 87186; 87205

== ENCOUNTER → 2018-03-20 | Outpatient (CLI) | payer MEDICARE, MEDICAID | LOC: WOUNDCARE 09:16 | PROVIDERS: ATTEND Nurse Practitioner | DX: E11.622 Type 2 diabetes mellitus with other skin ulcer (principal); L97.322 Non-pressure chronic ulcer of left ankle with fat layer exposed; L97.222 Non-pressure chronic ulcer of left calf with fat layer exposed; I70.243 Atherosclerosis of native arteries of left leg with ulceration of ankle; I87.2 Venous insufficiency (chronic) (peripheral) | CPT/HCPCS: 11042 ==

== ENCOUNTER → 2018-03-27 | Outpatient (CLI) | payer MEDICARE, MEDICAID | LOC: WOUNDCARE 08:55 | PROVIDERS: ATTEND Nurse Practitioner | DX: I87.2 Venous insufficiency (chronic) (peripheral) (principal); E11.622 Type 2 diabetes mellitus with other skin ulcer; L97.322 Non-pressure chronic ulcer of left ankle with fat layer exposed; I70.243 Atherosclerosis of native arteries of left leg with ulceration of ankle | CPT/HCPCS: 15275 ==

== ENCOUNTER → 2018-04-03 | Outpatient (CLI) | payer MEDICARE, MEDICAID | LOC: WOUNDCARE 08:39 | PROVIDERS: ATTEND Nurse Practitioner | DX: E11.622 Type 2 diabetes mellitus with other skin ulcer (principal); L97.222 Non-pressure chronic ulcer of left calf with fat layer exposed; I87.2 Venous insufficiency (chronic) (peripheral); I70.243 Atherosclerosis of native arteries of left leg with ulceration of ankle | CPT/HCPCS: 11042; 15275 ==

== ENCOUNTER → 2018-04-10 | Outpatient (CLI) | payer MEDICARE, MEDICAID | LOC: WOUNDCARE 08:57 | PROVIDERS: ATTEND Nurse Practitioner | DX: E11.622 Type 2 diabetes mellitus with other skin ulcer (principal); I87.2 Venous insufficiency (chronic) (peripheral); L97.322 Non-pressure chronic ulcer of left ankle with fat layer exposed; I70.243 Atherosclerosis of native arteries of left leg with ulceration of ankle; L97.222 Non-pressure chronic ulcer of left calf with fat layer exposed | CPT/HCPCS: 15271 ==

== ENCOUNTER → 2018-04-17 | Outpatient (CLI) | payer MEDICARE, MEDICAID | LOC: WOUNDCARE 10:00 | PROVIDERS: ATTEND Nurse Practitioner | DX: I87.2 Venous insufficiency (chronic) (peripheral) (principal); E11.622 Type 2 diabetes mellitus with other skin ulcer; L97.322 Non-pressure chronic ulcer of left ankle with fat layer exposed; I70.243 Atherosclerosis of native arteries of left leg with ulceration of ankle; L97.222 Non-pressure chronic ulcer of left calf with fat layer exposed | CPT/HCPCS: 15275 ==

== ENCOUNTER → 2018-04-24 | Outpatient (CLI) | payer MEDICARE, MEDICAID | LOC: WOUNDCARE 08:52 | PROVIDERS: ATTEND Nurse Practitioner | DX: I70.243 Atherosclerosis of native arteries of left leg with ulceration of ankle (principal); E11.622 Type 2 diabetes mellitus with other skin ulcer; L97.321 Non-pressure chronic ulcer of left ankle limited to breakdown of skin; I87.2 Venous insufficiency (chronic) (peripheral) | CPT/HCPCS: 99212 ==

== ENCOUNTER → 2018-05-01 | Outpatient (CLI) | payer MEDICARE, MEDICAID | LOC: WOUNDCARE 08:51 | PROVIDERS: ATTEND Nurse Practitioner | DX: I87.2 Venous insufficiency (chronic) (peripheral) (principal); E11.622 Type 2 diabetes mellitus with other skin ulcer; I70.243 Atherosclerosis of native arteries of left leg with ulceration of ankle; L97.321 Non-pressure chronic ulcer of left ankle limited to breakdown of skin | CPT/HCPCS: 99212 ==

== ENCOUNTER 2018-05-14 12:59 | Emergency (ER) | payer MEDICARE, MEDICAID ==
[~2018-05-14] VITALS: Ht 172.7 cm; Wt 131.5 kg
--- OUTSIDE RECORDS SUMMARY | 2018-05-14 13:09 | XMS REPORT | Continuity of Care Document ---
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 Medications Medication [...] 06/23/2017 07/22/2017 Daily&0900 MultiVits (Thera M Plus) (zxsjnpbw-xsoc-jrumjma) oral tablet TAB 06/23/2017 07/22/2017 Daily&0900 Rivastigmine [...] RAMIREZ GHOTRA MD 786.2 COUGH 10/08/2010 LISY COFFEE TASTER, KRYSTLE T 401.1 HYPERTENSION, BENIGN ESSENTIAL 10/08/2010 [...] INFARCT 03/21/2012 Ot 414.01 CORONARY ATHEROSCLEROSIS OF [place] CORON 03/21/2012 Ot 414.2 CHRONIC TOTAL OCCLUSION [...] MED,LT, CURRENT USE 08/29/2012 Ot 250.00 DIAB PRDUENCIO WO COMPL, TYPE II OR UNSPEC TY [...] Ot 428.0 CONGESTIVE HEART FAILURE NOS 09/21/2012 ROCK CHEN MD E Ot 428.23 ACUTE CHRONIC [...] CRESPO MD Ot 414.01 CORONARY ATHEROSCLEROSIS OF [place] CORON 01/18/2013 YANIRA CRESPO MD Ot 428.0 CONGESTIVE HEART FAILURE NOS 01/18/2013 YANIRA CRESPO MD Ot 438.20 LATE EFF-CEREBR DIS,HEMIPLEGIA [...] ADULT 04/29/2015 OLENA OLIVEIRA MD Ot Z79.4 FDC (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 OF INSULIN 04/29/2015 OLENA OLIVEIRA [...] CHRONIC OBSTRUCTIVE PULMONARY DISEASE, U 05/24/2016 RANDEE EVANS APRN Ot N18.3 CHRONIC KIDNEY DISEASE, STAGE 3 (MODERAT 05/24/2016 RANDEE EVANS APRN Ot Z79.4 TRACK MAINTAINER (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 OF INSULIN 05/24/2016 RANDEE EVANS APRN Ot Z79.84 TRACK MAINTAINER (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 OF ORAL HYPOGLYC 05/24/2016 RANDEE EVANS APRN Ot Z79.899 OTHER TRACK MAINTAINER (CURRENT) DRUG THERAPY 05/24/2016 RANDEE EVANS APRN [...] (MODERAT 05/25/2016 RANDEE EVANS APRN Ot Z79.4 TRACK MAINTAINER (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 OF INSULIN 05/25/2016 RANDEE EVANS APRN Ot Z79.84 FDC (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 OF ORAL HYPOGLYC 05/25/2016 RANDEE EVANS APRN Ot Z79.899 OTHER TRACK MAINTAINER (CURRENT) DRUG THERAPY 05/25/2016 RANDEE EVANS APRN [...] (MODERAT 05/26/2016 RANDEE EVANS APRN Ot Z79.4 FDC (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 OF INSULIN 05/26/2016 RANDEE EVANS APRN Ot Z79.84 TRACK MAINTAINER (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 OF ORAL HYPOGLYC 05/26/2016 RANDEE EVANS APRN Ot Z79.899 OTHER TRACK MAINTAINER (CURRENT) DRUG THERAPY 05/26/2016 RANDEE EVANS APRN [...] (MODERAT 05/30/2016 RANDEE EVANS APRN Ot Z79.4 FDC (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 OF INSULIN 05/30/2016 RANDEE EVANS APRN Ot Z79.84 FDC (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 OF ORAL HYPOGLYC 05/30/2016 RANDEE EVANS APRN Ot Z79.899 OTHER TRACK MAINTAINER (CURRENT) DRUG THERAPY 05/30/2016 RANDEE EVANS APRN [...] farris W I25.10 ATHSCL HEART DISEASE OF [place] CORONARY ARTERY W/O ANG PCTRS 07/04/2017 TreToni farris W I48.91 UNSPECIFIED ATRIAL FIBRILLATION 07/04/2017 TreToni farris W I50.9 HEART FAILURE, UNSPECIFIED 07/04/2017 TreToni farris W 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 07/04/2017 Toni [place] W N18.9 CHRONIC KIDNEY DISEASE, UNSPECIFIED 02/09/2018 LIU PHAM MD Ot E03.9 HYPOTHYROIDISM, UNSPECIFIED 02/13/2018 LIU PHAM MD Ot E03.9 HYPOTHYROIDISM, UNSPECIFIED 02/15/2018 FRITZ RICK COFFEE TASTER Ot E11.622 TYPE 2 DIABETES MELLITUS WITH OTHER SKIN 02/15/2018 FRITZ RICK COFFEE TASTER Ot I87.2 VENOUS INSUFFICIENCY (CHRONIC) (PERIPHER 02/15/2018 FRITZ RICK COFFEE TASTER Ot L97.222 NON-PRESSURE CHRONIC ULCER OF LEFT CALF 02/15/2018 FRITZ RICK COFFEE TASTER Ot 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 02/15/2018 FRITZ RICK COFFEE TASTER Ot E11.622 TYPE 2 DIABETES MELLITUS WITH OTHER SKIN 02/15/2018 FRITZ RICK COFFEE TASTER Ot I87.2 VENOUS INSUFFICIENCY (CHRONIC) (PERIPHER 02/15/2018 FRITZ RICK COFFEE TASTER Ot L97.222 NON-PRESSURE CHRONIC ULCER OF LEFT CALF 02/15/2018 FRITZ RICK COFFEE TASTER Ot 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 02/20/2018 LIU PHAM MD Ot E03.9 HYPOTHYROIDISM, UNSPECIFIED 02/20/2018 FRITZ RICK COFFEE TASTER Ot E11.622 TYPE 2 DIABETES MELLITUS WITH [...] LUIS ARMANDO MARTINEZ MD, Ot 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 03/02/2018 LUIS ARMANDO MARTINEZ MD, Ot I87.2 VENOUS INSUFFICIENCY (CHRONIC) (PERIPHER 03/02/2018 LUIS ARMANDO MARTINEZ MD, Ot L97.222 NON-PRESSURE CHRONIC ULCER OF LEFT CALF 03/02/2018 LUIS ARMANDO MARTINEZ MD, Ot 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 03/06/2018 TIAN RIVERA MD Ot E03.9 HYPOTHYROIDISM, UNSPECIFIED 03/06/2018 TIAN RIVERA MD, Ot E11.621 TYPE 2 DIABETES MELLITUS WITH FOOT ULCER 03/06/2018 TIAN RIVERA MD Ot E66.01 MORBID (SEVERE) OBESITY DUE TO EXCESS CA 03/06/2018 TIAN RIVERA MD Ot E78.5 HYPERLIPIDEMIA, UNSPECIFIED 03/06/2018 TIAN RIVERA MD Ot I10 ESSENTIAL (PRIMARY) HYPERTENSION 03/06/2018 TIAN RIVERA MD Ot I25.10 ATHSCL HEART DISEASE OF [place] CORONARY 03/06/2018 TIAN RIVERA MD Ot I69.354 HEMIPLGA FOLLOWING CEREBRAL INFRC AFFECT 03/06/2018 TIAN RIVERA MD Ot 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 03/06/2018 TIAN RIVERA MD Ot 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 03/06/2018 TIAN RIVERA MD, Ot L97.529 NON-PRESSURE CHRONIC ULCER OTH PRT LEFT 03/06/2018 TIAN RIVERA MD Ot Z68.35 BODY MASS INDEX (BMI) 35.0-35.9, ADULT 03/06/2018 TIAN RIVERA MD, Ot Z79.01 FDC (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 OF ANTICOAGULANT 03/06/2018 TIAN RIVERA MD Ot Z79.4 FDC (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 OF INSULIN 03/06/2018 TIAN RIVERA MD, Ot Z79.899 OTHER FDC (CURRENT) DRUG THERAPY 03/08/2018 TIAN RIVERA MD Ot E03.9 HYPOTHYROIDISM, UNSPECIFIED 03/08/2018 TIAN RIVERA MD Ot E11.621 TYPE 2 DIABETES MELLITUS WITH FOOT ULCER 03/08/2018 TIAN RIVERA MD Ot E66.01 MORBID (SEVERE) OBESITY DUE TO EXCESS CA 03/08/2018 TIAN RIVERA MD Ot E78.5 HYPERLIPIDEMIA, UNSPECIFIED 03/08/2018 TIAN RIVERA MD Ot I10 ESSENTIAL (PRIMARY) HYPERTENSION 03/08/2018 TIAN RIVERA MD Ot I25.10 ATHSCL HEART DISEASE OF [place] CORONARY 03/08/2018 TAIN RIVERA MD Ot I69.354 HEMIPLGA FOLLOWING CEREBRAL INFRC AFFECT 03/08/2018 TIAN RIVERA MD Ot 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 03/08/2018 TIAN RIVERA MD Ot 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 03/08/2018 TIAN RIVERA MD Ot L97.529 NON-PRESSURE CHRONIC ULCER OTH PRT LEFT 03/08/2018 TIAN RIVERA MD Ot Z68.35 BODY MASS INDEX (BMI) 35.0-35.9, ADULT 03/08/2018 TIAN RIVERA MD Ot Z79.01 TRACK MAINTAINER (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 OF ANTICOAGULANT 03/08/2018 TIAN RIVERA MD Ot Z79.4 FDC (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 OF INSULIN 03/08/2018 TIAN RIVERA MD, Ot Z79.899 OTHER FDC (CURRENT) DRUG THERAPY 03/09/2018 TIAN RIVERA MD, Ot E03.9 HYPOTHYROIDISM, UNSPECIFIED 03/09/2018 TIAN RIVERA MD, Ot E11.621 TYPE 2 DIABETES MELLITUS WITH FOOT ULCER 03/09/2018 TIAN RIVERA MD Ot E66.01 MORBID (SEVERE) OBESITY DUE TO EXCESS CA 03/09/2018 TIAN RIVERA MD Ot E78.5 HYPERLIPIDEMIA, UNSPECIFIED 03/09/2018 TIAN RIVERA MD Ot I10 ESSENTIAL (PRIMARY) HYPERTENSION 03/09/2018 TIAN RIVERA MD, Ot I25.10 ATHSCL HEART DISEASE OF [place] CORONARY 03/09/2018 TIAN RIVERA MD, Ot I69.354 HEMIPLGA FOLLOWING CEREBRAL INFRC AFFECT 03/09/2018 TIAN RIVERA MD, Ot 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 03/09/2018 TIAN RIVERA MD, Ot 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 03/09/2018 TIAN RIVERA MD, Ot L97.529 NON-PRESSURE CHRONIC ULCER OTH PRT LEFT 03/09/2018 TIAN RIVERA MD, Ot Z68.35 BODY MASS INDEX (BMI) 35.0-35.9, ADULT 03/09/2018 TIAN RIVERA MD, Ot Z79.01 TRACK MAINTAINER (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 OF ANTICOAGULANT 03/09/2018 TIAN RIVERA MD, Ot Z79.4 TRACK MAINTAINER (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 OF INSULIN 03/09/2018 TIAN RIVERA MD, Ot Z79.899 OTHER FDC (CURRENT) DRUG THERAPY 03/13/2018 FRITZ RICK APRN Ot E11.622 TYPE 2 DIABETES MELLITUS WITH OTHER SKIN 03/13/2018 FRITZ RICK APRN Ot I87.2 VENOUS INSUFFICIENCY (CHRONIC) (PERIPHER 03/13/2018 FRITZ RICK APRN Ot L97.222 NON-PRESSURE CHRONIC ULCER OF LEFT CALF 03/13/2018 FRITZ RICK APRN Ot 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 03/13/2018 FRITZ RICK APRN Ot E11.622 TYPE 2 DIABETES MELLITUS WITH OTHER SKIN 03/13/2018 FRITZ RICK APRN Ot I70.242 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 03/13/2018 FRITZ RICK APRN Ot I87.2 VENOUS INSUFFICIENCY (CHRONIC) (PERIPHER 03/13/2018 FRITZ RICK APRN Ot L97.222 NON-PRESSURE CHRONIC ULCER OF LEFT CALF 03/13/2018 FRITZ RICK APRN Ot 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 03/14/2018 PRABHJOT, FRITZ R COFFEE TASTER Ot 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 03/14/2018 FRITZ RICK COFFEE TASTER Ot I87.2 VENOUS INSUFFICIENCY (CHRONIC) (PERIPHER 03/14/2018 FRITZ RICK COFFEE TASTER Ot L97.222 NON-PRESSURE CHRONIC ULCER OF LEFT CALF 03/14/2018 FRITZ RICK COFFEE TASTER Ot 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 03/15/2018 FRITZ RICK COFFEE TASTER Ot E11.622 TYPE 2 DIABETES MELLITUS WITH OTHER SKIN 03/15/2018 FRITZ RICK COFFEE TASTER Ot I70.243 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 03/15/2018 PRABHJOT FRITZ R COFFEE TASTER Ot I87.2 VENOUS INSUFFICIENCY (CHRONIC) (PERIPHER 03/15/2018 FRITZ RICK COFFEE TASTER Ot L97.222 NON-PRESSURE CHRONIC ULCER OF LEFT CALF 03/15/2018 FRITZ RICK COFFEE TASTER Ot 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 03/15/2018 FRITZ RICK COFFEE TASTER Ot M25.772 OSTEOPHYTE, LEFT ANKLE 03/15/2018 FRITZ RICK COFFEE TASTER Ot M77.32 CALCANEAL SPUR, LEFT FOOT 03/21/2018 FRITZ RICK COFFEE TASTER Ot E11.622 TYPE 2 DIABETES MELLITUS WITH OTHER SKIN 03/21/2018 FRITZ RICK COFFEE TASTER Ot I70.243 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 W [facility] 03/21/2018 FRITZ RICK COFFEE TASTER Ot I87.2 VENOUS INSUFFICIENCY (CHRONIC) (PERIPHER 03/21/2018 FRITZ RICK COFFEE TASTER Ot L97.222 NON-PRESSURE CHRONIC ULCER OF LEFT CALF 03/21/2018 FRITZ RICK COFFEE TASTER Ot 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 03/22/2018 HERNANDEZ ANDERSON APRN Ot G47.30 SLEEP APNEA, UNSPECIFIED 03/23/2018 LUIS ARMANDO MARTINEZ MD Ot E11.622 TYPE 2 DIABETES MELLITUS WITH OTHER SKIN 03/23/2018 LUIS ARMANDO MARTINEZ MD Ot I70.243 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 W [facility] 03/23/2018 LUIS ARMANDO MARTINEZ MD Ot I87.2 VENOUS INSUFFICIENCY (CHRONIC) (PERIPHER 03/23/2018 LUIS ARMANDO MARTINEZ MD Ot L97.222 NON-PRESSURE CHRONIC ULCER OF LEFT CALF 03/23/2018 LUIS ARMANDO MARTINEZ MD Ot 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 03/29/2018 FRITZ RICK COFFEE TASTER Ot E11.622 TYPE 2 DIABETES MELLITUS WITH OTHER SKIN 03/29/2018 FRITZ RICK COFFEE TASTER Ot 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 03/29/2018 FRITZ RICK COFFEE TASTER Ot I87.2 VENOUS INSUFFICIENCY (CHRONIC) (PERIPHER 03/29/2018 FRITZ RICK COFFEE TASTER Ot 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 03/30/2018 LUIS ARMANDO MARTINEZ MD, Ot E11.622 TYPE 2 DIABETES MELLITUS WITH OTHER SKIN 03/30/2018 LUIS ARMANDO MARTINEZ MD Ot 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 03/30/2018 LUIS ARMANDO MARTINEZ MD Ot I87.2 VENOUS INSUFFICIENCY (CHRONIC) (PERIPHER 03/30/2018 LUIS ARMANDO MARTINEZ MD Ot L97.222 NON-PRESSURE CHRONIC ULCER OF LEFT CALF 03/30/2018 LUIS ARMANDO MARTINEZ MD Ot 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 04/04/2018 FRITZ RICK COFFEE TASTER Ot 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 04/04/2018 FRITZ RICK COFFEE TASTER Ot I87.2 VENOUS INSUFFICIENCY (CHRONIC) (PERIPHER 04/04/2018 FRITZ RICK COFFEE TASTER Ot L97.222 NON-PRESSURE CHRONIC ULCER OF LEFT CALF 04/04/2018 FRITZ RICK COFFEE TASTER Ot 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 04/04/2018 FRITZ RICK COFFEE TASTER Ot E11.622 TYPE 2 DIABETES MELLITUS WITH OTHER SKIN 04/04/2018 FRITZ RICK COFFEE TASTER Ot 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 04/04/2018 FRITZ RICK COFFEE TASTER Ot I87.2 VENOUS INSUFFICIENCY (CHRONIC) (PERIPHER 04/04/2018 FRITZ RICK R COFFEE TASTER Ot L97.222 NON-PRESSURE CHRONIC ULCER OF LEFT CALF 04/11/2018 FRITZ RICK COFFEE TASTER Ot E11.622 TYPE 2 DIABETES MELLITUS WITH OTHER SKIN 04/11/2018 FRITZ RICK COFFEE TASTER Ot 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 04/11/2018 PRABHJOT FRITZ R COFFEE TASTER Ot I87.2 VENOUS INSUFFICIENCY (CHRONIC) (PERIPHER 04/11/2018 PRABHJOT FRITZ R COFFEE TASTER Ot L97.222 NON-PRESSURE CHRONIC ULCER OF LEFT CALF 04/11/2018 PRABHJOT FRITZ R COFFEE TASTER Ot 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 04/18/2018 PRABHJOT FRITZ R COFFEE TASTER Ot E11.622 TYPE 2 DIABETES MELLITUS WITH OTHER SKIN 04/18/2018 PRABHJOT FRITZ R COFFEE TASTER Ot I70.243 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 04/18/2018 PRABHJOT FRITZ R COFFEE TASTER Ot I87.2 VENOUS INSUFFICIENCY (CHRONIC) (PERIPHER 04/18/2018 PRABHJOT FRITZ R COFFEE TASTER Ot 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 04/18/2018 PRABHJOT FRITZ R COFFEE TASTER Ot E11.622 TYPE 2 DIABETES MELLITUS WITH OTHER SKIN 04/18/2018 PRABHJOT FRITZ R COFFEE TASTER Ot I70.243 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 W [facility] 04/18/2018 PRABHJOT FRITZ R COFFEE TASTER Ot I87.2 VENOUS INSUFFICIENCY (CHRONIC) (PERIPHER 04/18/2018 PRABHJOT FRITZ R COFFEE TASTER Ot L97.222 NON-PRESSURE CHRONIC ULCER OF LEFT CALF 04/18/2018 PRABHJOT FRITZ R COFFEE TASTER Ot 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 04/23/2018 PRABHJOT FRITZ R COFFEE TASTER Ot E11.622 TYPE 2 DIABETES MELLITUS WITH OTHER SKIN 04/23/2018 FRITZ RICK R COFFEE TASTER Ot I70.243 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 W [facility] 04/23/2018 PRABHJOT FRITZ R COFFEE TASTER Ot I87.2 VENOUS INSUFFICIENCY (CHRONIC) (PERIPHER 04/23/2018 PRABHJOT FRITZ R COFFEE TASTER Ot L97.222 NON-PRESSURE CHRONIC ULCER OF LEFT CALF 04/23/2018 PRABHJOT FRITZ R COFFEE TASTER Ot 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 04/25/2018 PRABHJOT FRITZ R COFFEE TASTER Ot E11.622 TYPE 2 DIABETES MELLITUS WITH OTHER SKIN 04/25/2018 PRABHJOT FRITZ R COFFEE TASTER Ot I70.243 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 W [facility] 04/25/2018 PRABHJOT FRITZ R COFFEE TASTER Ot I87.2 VENOUS INSUFFICIENCY (CHRONIC) (PERIPHER 04/25/2018 PRABHJOT, FRITZ R COFFEE TASTER Ot 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 04/30/2018 PRABHJOT, FRITZ R COFFEE TASTER Ot E11.622 TYPE 2 DIABETES MELLITUS WITH OTHER SKIN 04/30/2018 PRABHJOT, FRITZ R COFFEE TASTER Ot I70.243 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 W [facility] 04/30/2018 PRABHJOT, FRITZ R COFFEE TASTER Ot I87.2 VENOUS INSUFFICIENCY (CHRONIC) (PERIPHER 04/30/2018 PRABHJOT, FRITZ R COFFEE TASTER Ot L97.222 NON-PRESSURE CHRONIC ULCER OF LEFT CALF 05/01/2018 PRABHJOT, FRITZ R COFFEE TASTER Ot E11.622 TYPE 2 DIABETES MELLITUS WITH OTHER SKIN 05/01/2018 PRABHJOT, FRITZ R COFFEE TASTER Ot I70.243 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 W [facility] 05/01/2018 PRABHJOT, FRITZ R COFFEE TASTER Ot I87.2 VENOUS INSUFFICIENCY (CHRONIC) (PERIPHER 05/01/2018 PRABHJOT FRITZ R COFFEE TASTER Ot 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 05/02/2018 PRABHJOT, FRITZ R COFFEE TASTER Ot E11.622 TYPE 2 DIABETES MELLITUS WITH OTHER SKIN 05/02/2018 PRABHJOT, FRITZ R COFFEE TASTER Ot I70.243 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 W [facility] 05/02/2018 PRABHJOT, FRITZ R COFFEE TASTER Ot I87.2 VENOUS INSUFFICIENCY (CHRONIC) (PERIPHER 05/02/2018 PRABHJOT FRITZ R COFFEE TASTER Ot 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 05/02/2018 PRABHJOT FRITZ R COFFEE TASTER Ot E11.622 TYPE 2 DIABETES MELLITUS WITH OTHER SKIN 05/02/2018 PRABHJOT, FRITZ R COFFEE TASTER Ot I70.243 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 W [facility] 05/02/2018 PRABHJOT, FRITZ R COFFEE TASTER Ot I87.2 VENOUS INSUFFICIENCY (CHRONIC) (PERIPHER 05/02/2018 PRABHJOT, FRITZ R COFFEE TASTER Ot 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 05/04/2018 PRABHJOT, FRITZ R COFFEE TASTER Ot E11.622 TYPE 2 DIABETES MELLITUS WITH OTHER SKIN 05/04/2018 PRABHJOT, FRITZ R COFFEE TASTER Ot I70.243 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 W [facility] 05/04/2018 FRITZ RICK APRN Ot I87.2 VENOUS INSUFFICIENCY (CHRONIC) (PERIPHER 05/04/2018 FRITZ RICK APRN Ot L97.222 NON-PRESSURE CHRONIC ULCER OF LEFT CALF 05/04/2018 FRITZ RICK APRN Ot 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 Procedures Code Description [place] [address] LIPID PANEL 03/14/2012 51538 ECHO 2D 03/14/2012 44743 HEART CATH 03/14/2012 37.22 LEFT HEART CARDIAC CATH 03/19/2012 88.53 LT HEART ANGIOCARDIOGRAM 03/19/2012 88.56 CORONAR ARTERIOGR-2 CATH 03/19/2012 86822 BMP 04/13/2012 11955 LIVER PANEL (LFT) 04/13/2012 LIPOPROT LIPOPROTIEN PANEL 04/13/2012 74849 GLUCOSE FINGER STICK 04/13/2012 81974 A1C (IN-HOUSE) 04/13/2012 38145 MEASURE BLOOD OXYGEN LEVEL 06/21/2012 Cardiolog Ricardo Ta 08/16/2012 21979 ROUTINE VENIPUNCTURE 09/11/2012 86717 CBC 09/11/2012 46047 CMP 09/11/2012 0900736 GFR CALC (RESULT ONLY) 09/11/2012 Physical Occupational Therapy 01/23/2013 26129 BIOPSY SKIN LESION (SINGLE) 02/18/2013 Results Test [...] 5-8.5 Urine-Protein Negative Negative Urine-RBC 0-2/HPF Urine-Specific [place] 1.020 1.000-1.030 Urine-WBC 0-2/HPF Urobilinogen 1.0 0.2-1.0 [...] mg/g 0.00-100.00 Urine Creatinine 43.8 mg/dl 0.0-50.0 Automated blood complete blood count (hemogram) panel - 03/05/18 08:10 Blood leukocytes automated count (number/volume) 9.9 10*3/uL 4.3-11.0 Blood erythrocytes automated count (number/volume) 5.02 10*6/uL 4.35-5.85 Venous blood hemoglobin measurement (mass/volume) 14.6 g/dL 13.3-17.7 Blood hematocrit (volume fraction) 45 % 40-54 Automated erythrocyte mean corpuscular volume 89 [foz_us] 80-99 Automated erythrocyte mean corpuscular hemoglobin (mass per erythrocyte) 29 pg 25-34 Automated erythrocyte mean corpuscular hemoglobin concentration measurement ( mass/volume) 33 g/dL 32-36 Automated erythrocyte distribution width ratio 13.9 % 10.0-14.5 Automated blood platelet count (count/volume) 249 10*3/uL 130-400 Automated blood platelet mean volume measurement 10.8 [foz_us] 7.4-10.4 PT panel in platelet poor plasma by coagulation assay - 03/05/18 08:10 Prothrombin time (PT) in platelet poor plasma by coagulation assay 13.2 s 12.2-14.7 INR in platelet poor plasma or blood by coagulation assay 1.0 0.8-1.4 Activated partial thromboplastin time (aPTT) in platelet poor plasma bycoagulation assay - 03/05/18 08:10 Activated partial thromboplastin time (aPTT) in platelet poor plasma bycoagulation assay 30 s 24-35 Comprehensive metabolic panel - 03/05/18 08:10 Serum or plasma sodium measurement (moles/volume) 140 mmol/L 135-145 Serum or plasma potassium measurement (moles/volume) 4.8 mmol/L 3.6-5.0 Serum or plasma chloride measurement (moles/volume) 102 mmol/L 98-107 Carbon dioxide 25 mmol/L 21-32 Serum or plasma anion gap determination (moles/volume) 13 mmol/L 5-14 Serum or plasma urea nitrogen measurement (mass/volume) 25 mg/dL 7-18 Serum or plasma creatinine measurement (mass/volume) 1.61 mg/dL 0.60-1.30 Serum or plasma urea nitrogen/creatinine mass ratio 16 NRG Serum or plasma creatinine measurement with calculation of estimated glomerular filtration rate 43 NRG Serum or plasma glucose measurement (mass/volume) 173 mg/dL 70-105 Serum or plasma calcium measurement (mass/volume) 9.2 mg/dL 8.5-10.1 Serum or plasma total bilirubin measurement (mass/volume) 0.5 mg/dL 0.1-1.0 Serum or plasma alkaline phosphatase measurement (enzymatic activity/volume) 112 U/L 40-136 Serum or plasma aspartate aminotransferase measurement (enzymatic activity/ volume) 25 U/L 5-34 Serum or plasma alanine aminotransferase measurement (enzymatic activity/volume ) 35 U/L 0-55 Serum or plasma protein measurement (mass/volume) 7.5 g/dL 6.4-8.2 Serum or plasma albumin measurement (mass/volume) 3.9 g/dL 3.2-4.5 CALCIUM CORRECTED 9.3 mg/dL 8.5-10.1 Lipid 1996 panel - 03/05/18 08:10 Serum or plasma triglyceride measurement (mass/volume) 268 mg/dL <150 Serum or plasma cholesterol measurement (mass/volume) 258 mg/dL < 200 Serum or plasma cholesterol in HDL measurement (mass/volume) 32 mg/ dL 40-60 Cholesterol in LDL [mass/volume] in serum or plasma by direct assay 180 mg/dL 1-129 Serum or plasma cholesterol in VLDL measurement (mass/volume) 54 mg/ dL 5-40 Methicillin resistant Staphylococcus aureus (MRSA) screening culture - 08:10 Methicillin resistant Staphylococcus aureus (MRSA) screening culture NEG NRG Capillary blood glucose measurement by glucometer (mass/volume) - 03/05/18 15: 37 Capillary blood glucose measurement by glucometer (mass/volume) 182 mg/dL 70-110 Capillary blood glucose measurement by glucometer (mass/volume) - 03/05/18 20: 13 Capillary blood glucose measurement by glucometer (mass/volume) 181 mg/dL 70-110 Whole blood basic metabolic panel - 03/06/18 03:00 Serum or plasma sodium measurement (moles/volume) 139 mmol/L 135-145 Serum or plasma potassium measurement (moles/volume) 4.6 mmol/L 3.6-5.0 Serum or plasma chloride measurement (moles/volume) 106 mmol/L 98-107 Carbon dioxide 22 mmol/L 21-32 Serum or plasma anion gap determination (moles/volume) 11 mmol/L 5-14 Serum or plasma urea nitrogen measurement (mass/volume) 24 mg/dL 7-18 Serum or plasma creatinine measurement (mass/volume) 1.38 mg/dL 0.60-1.30 Serum or plasma urea nitrogen/creatinine mass ratio 17 NRG Serum or plasma creatinine measurement with calculation of estimated glomerular filtration rate 51 NRG Serum or plasma glucose measurement (mass/volume) 193 mg/dL 70-105 Serum or plasma calcium measurement (mass/volume) 8.1 mg/dL 8.5-10.1 Capillary blood glucose measurement by glucometer (mass/volume) - 03/06/18 11: 28 Capillary blood glucose measurement by glucometer (mass/volume) 164 mg/dL 70-110 Bacteria identification in isolate by anaerobe culture - 03/13/18 09:39 Bacteria identification in isolate by anaerobe culture NOANA NRG Gram stain microscopy - 03/13/18 09:39 Gram stain microscopy No bacteria seen NR Bacteria identification in wound by culture - 03/13/18 09:39 Bacteria identification in wound by culture SEE COMMEN NRG FREE TEXT EXTERNAL ID REPORTED 03/16/18 10:05 NRG QUANTITY OF GROWTH . NRG FREE TEXT ENTRY 2 SENSITIVITY REPORTED 03/17/18 10:05 NRG RML Sensitivity Panel - 03/13/18 09:39 Oxacillin susceptibility test by minimum inhibitory concentration 0.5 NRG Clindamycin susceptibility test by minimum inhibitory concentration > NRG Erythromycin susceptibility test by minimum inhibitory concentration > NRG Trimethoprim/sulfamethoxazole susceptibility test by minimum inhibitoryconcentration S NRG Vancomycin susceptibility test by minimum inhibitory concentration 1 NRG Levofloxacin susceptibility test by minimum inhibitory concentration > NRG Rifampin susceptibility test by minimum inhibitory concentration <= NRG Cefazolin susceptibility test by minimum inhibitory concentration < = NRG Linezolid susceptibility test by minimum inhibitory concentration < = NRG Penicillin G susceptibility test by minimum inhibitory concentration > NRG Minocycline susc JUHI <= NRG RML Sensitivity Panel - 03/13/18 09:39 Oxacillin susceptibility test by minimum inhibitory concentration < = NRG Clindamycin susceptibility test by minimum inhibitory concentration R NRG Erythromycin susceptibility test by minimum inhibitory concentration > NRG Vancomycin susceptibility test by minimum inhibitory concentration 1 NRG Levofloxacin susceptibility test by minimum inhibitory concentration <= NRG Rifampin susceptibility test by minimum inhibitory concentration <= NRG Cefazolin susceptibility test by minimum inhibitory concentration < = NRG Linezolid susceptibility test by minimum inhibitory concentration 2 NRG Moxifloxacin susceptibility test by minimum inhibitory concentration S NRG Minocycline susc JUHI <= NRG Encounters ACCT No. Visit Date/Time Discharge Status Pt. Type Provider Facility Loc./Unit Complaint [id number] 06/23/2014 11:47:29 06/23/2014 23:59:59 CLS Outpatient Nathen Parker [id number] 04/23/2014 10:07:45 04/23/2014 23:59:59 CLS Outpatient Nathen Parker [id number] 02/27/2014 09:19:41 02/27/2014 23:59:59 CLS Outpatient Nathen Parker [id number] 12/14/2017 09:20:00 12/14/2017 23:59:59 CLS Outpatient CHERIE ESPINAL, YANIRA [facility] [id number] 02/25/2013 15:23:00 02/25/2013 23:59:59 CLS Outpatient BRANDIN ESPINAL RAMIREZ M [id number] 02/18/2013 09:44:00 02/18/2013 23:59:59 CLS Outpatient KRYSTLE WASSERMAN APRN [id number] 01/22/2013 16:19:00 01/22/2013 23:59:59 CLS Outpatient YANIRA CRESPO MD [id number] 07/26/2012 15:30:00 07/26/2012 23:59:59 CLS Outpatient YANIRA CRESPO MD [id number] 06/20/2012 09:10:00 06/20/2012 23:59:59 CLS Outpatient CARLOS GENTILE DOMarcelina Gallagher [id number] 06/13/2012 15:27:00 06/13/2012 23:59:59 CLS Outpatient KRYSTLE WASSERMAN APRN [id number] 04/30/2012 08:41:00 04/30/2012 23:59:59 CLS Outpatient LISY SINGHNKRYSTLE Alix [id number] 04/19/2012 10:58:00 04/19/2012 23:59:59 CLS Outpatient YANIRA CRESPO MD [id number] 04/12/2012 17:48:00 04/12/2012 23:59:59 CLS Outpatient MIO GENTILE [place] [id number] 03/14/2012 08:36:00 03/14/2012 23:59:59 CLS Outpatient KRYSTLE WASSERMAN APRN [id number] 12/06/2012 10:39:00 Document Registration [id number] 10/09/2012 09:21:00 Document Registration [id number] 09/11/2012 11:46:00 Document Registration [id number] 09/11/2012 11:46:00 Document Registration [id number] 08/27/2012 09:52:00 Document Registration [id number] 09/22/2017 18:10:00 09/22/2017 23:59:00 DIS Outpatient Liu Pham [id number] 06/22/2017 16:22:00 07/04/2017 10:00:00 DIS Inpatient [facility] JEFERSON [id number] 05/19/2017 18:39:00 05/19/2017 23:59:00 DIS Outpatient Liu Pham [id number] 04/10/2016 15:23:00 04/10/2016 23:59:00 DIS Outpatient Liu Pham [id number] 06/22/2017 17:08:40 Document Registration [id number] 05/01/2018 08:51:00 05/01/2018 23:59:59 CLS Outpatient PRABHJOT, FRITZ R [employer]EE [employer]ER [facility] WOUNDCARE [id number] 04/24/2018 08:52:00 04/24/2018 23:59:59 CLS Outpatient PRABHJOT, RFITZ R COFFEE TASTER [facility] WOUNDCARE [id number] 04/17/2018 10:00:00 04/17/2018 23:59:59 CLS Outpatient PRABHJOT, FRITZ R [employer] T[employer]ER [facility] WOUNDCARE [id number] 04/10/2018 08:57:00 04/10/2018 23:59:59 CLS Outpatient PRABHJOT, FRITZ R [employer]ER [facility] WOUNDCARE [id number] 04/03/2018 08:39:00 04/03/2018 23:59:59 CLS Outpatient PRABHJTO, FRITZ R [employer]EE T[employer]ER [facility] WOUNDCARE [id number] 03/27/2018 08:55:00 03/27/2018 23:59:59 CLS Outpatient PRABHJOT, FRITZ R [employer]ER [facility] WOUNDCARE [id number] 03/21/2018 15:17:00 03/21/2018 23:59:59 CLS Preadmit HERNANDEZ ANDERSON [employer]ER [facility] SLEEP SLEEP APNEA [id number] 03/20/2018 09:16:00 03/20/2018 23:59:59 CLS Outpatient PRABHJOT, FRITZ R [employer]ER [facility] WOUNDCARE [id number] 03/13/2018 10:15:00 03/13/2018 23:59:59 CLS Outpatient PRABHJOT, FRITZ R [employer]ER [facility] RAD I87.2 [id number] 03/13/2018 09:04:00 03/13/2018 23:59:59 CLS Outpatient PRABHJOT, FRITZ R [employer] T[employer]ER [facility] WOUNDCARE [id number] 03/05/2018 07:31:00 03/06/2018 13:40:00 DIS Outpatient MIGUEL ESPINAL, TIAN De La O [facility] CATH PAD,CAD,HTN,HLP [id number] 02/27/2018 09:15:00 02/27/2018 23:59:59 CLS Outpatient LUIS ARMANDO MARTINEZ MD [facility] WOUNDCARE [id number] 02/20/2018 09:50:00 02/20/2018 23:59:59 CLS Outpatient FRITZ RICK [employer]ER [facility] LAB I87.2,E11.622 [id number] 02/20/2018 09:02:00 02/20/2018 23:59:59 CLS Outpatient FRITZ RICK [employer]ER [facility] WOUNDCARE [id number] 02/13/2018 08:14:00 02/13/2018 23:59:59 CLS Outpatient FRITZ RICK [employer]ER [facility] WOUNDCARE [id number] 03/14/2017 10:04:00 03/14/2017 23:59:59 CLS Outpatient LIU PHAM MD [facility] LABNPT E03.9 [id number] 05/24/2016 17:14:00 05/24/2016 20:33:00 DIS Emergency RANDEE EVANS [employer] [facility] ER ELEV GLUCOSE [id number] 04/23/2015 14:00:00 04/29/2015 14:00:00 DIS Inpatient OLENA OLIVEIRA MD [facility] 4TH PNEUMONIA/ELEVATED TROPONIN [id number] 02/04/2013 09:01:00 02/13/2013 11:22:00 DIS Outpatient GERMANIA ROMAN [facility] REHAB RESIDUAL L SIDED WEAKNESS S/P STROKE 05/2012 [id number] 01/17/2013 20:50:00 01/18/2013 13:00:00 DIS Inpatient YANIRA CRESPO MD [facility] 4TH CHRONIC PAIN INABILITY TO CARE FOR SELF [id number] 10/15/2012 08:59:00 11/21/2012 00:01:00 DIS Outpatient YANIRA CRESPO MD [facility] REHAB CVA [id number] 09/22/2012 22:20:00 09/23/2012 00:04:00 DIS Emergency LUIS ALBERTO OLIVEIRA MDNT A [facility] ER CHEST PAIN [id number] 09/22/2012 22:26:00 09/22/2012 23:59:59 CLS Emergency [id number] 09/17/2012 10:45:00 09/21/2012 12:55:00 DIS Inpatient APRIL ESPINAL, ROCK Fitch [facility] IRF DEBILITY [id number] 09/12/2012 12:58:00 09/17/2012 10:45:00 DIS Inpatient RAMIREZ GHOTRA MD [facility] 4TH PNEUMONIA [id number] 04/23/2015 11:24:00 Document Registration [id number] 08/29/2012 00:03:00 Document Registration [id number] 08/14/2012 02:09:00 Document Registration [id number] 06/12/2012 08:08:00 Document Registration [id number] 05/02/2012 08:09:00 Document Registration [id number] 03/20/2012 14:49:00 Document Registration [id number] 03/29/2011 15:55:00 Document Registration
--- NOTE | 2018-05-14 13:25 | Diagnostic Imaging Report ---
PROCEDURE: CT head wo r/o stroke. TECHNIQUE: Multiple contiguous axial images were obtained through the brain without the use of intravenous contrast. INDICATION: Right arm and hand weakness for one week. COMPARISON: Exam compared to 05/24/2016. FINDINGS: Right hemispheric encephalomalacia on an old ischemic basis is present. The left hemisphere reveals no appreciable edema, hemorrhage, or acute abnormality. Background atrophy and white matter small vessel sequelae with atherosclerotic vascular calcifications are chronic. No acute appearing abnormality. IMPRESSION: Old right hemispheric ischemic sequelae. Chronic senescent changes. No hemorrhage, edema, or acute-appearing abnormality. Results discussed with the ER physician at 1:20 p.m. Dictated by: Dictated on workstation # [id number]
--- NOTE | 2018-05-14 13:28 | Diagnostic Imaging Report ---
INDICATION: Right hand paresthesia. Portable chest 1:17 p.m. FINDINGS: There are postop changes from CABG surgery. Heart size and pulmonary vascularity are normal. Lungs are clear. There are no effusions or pneumothoraces. IMPRESSION: No acute abnormalities in the chest. Dictated by: Dictated on workstation # [id number]
[2018-05-14 13:48] LABS: BASOPHILS % (AUTO) 0 % (0-10); EOSINOPHILS # (AUTO) 0.2 10^3/uL (0.0-0.3); EOSINOPHILS % (AUTO) 2 % (0-10); HEMATOCRIT 45 % (40-54); LYMPHOCYTES # (AUTO) 3.1 X 10^3 (1.0-4.0); LYMPHOCYTES % (AUTO) 34 % (12-44); MEAN CORPUSCULAR HEMOGLOBIN 29 PG (25-34); MEAN CORPUSCULAR HGB CONC 34 G/DL (32-36); MEAN CORPUSCULAR VOLUME 88 FL (80-99); MEAN PLATELET VOLUME 10.7 FL (7.4-10.4); MONOCYTES # (AUTO) 0.8 X 10^3 (0.0-1.0); MONOCYTES % (AUTO) 9 % (0-12); NEUTROPHILS % (AUTO) 55 % (42-75); PLATELET COUNT 236 10^3/uL (130-400); RED BLOOD COUNT 5.11 10^6/uL (4.35-5.85); WHITE BLOOD COUNT 9.1 10^3/uL (4.3-11.0)
[2018-05-14 14:05] LABS: FIBRIN DEGRADATION PRODUCTS 0.57 UG/ML (0.00-0.49); INR 1.1 (0.8-1.4); PROTHROMBIN TIME PATIENT 14.6 SEC (12.2-14.7)
[2018-05-14 14:09] LABS: ALANINE AMINOTRANSFERASE 44 U/L (0-55); ALBUMIN 3.8 GM/DL (3.2-4.5); ALKALINE PHOSPHATASE 166 U/L (40-136); BILIRUBIN,TOTAL 0.5 MG/DL (0.1-1.0); BUN/CREATININE RATIO 14; CALCIUM 9.1 MG/DL (8.5-10.1); CARBON DIOXIDE 23 MMOL/L (21-32); CHLORIDE 103 MMOL/L (98-107); CREATININE SERUM 1.62 MG/DL (0.60-1.30); GFR ESTIMATED 42; GLUCOSE 198 MG/DL (70-105); POTASSIUM 4.6 MMOL/L (3.6-5.0); SODIUM 138 MMOL/L (135-145); TOTAL PROTEIN 7.5 GM/DL (6.4-8.2)
[2018-05-14] MEDS ORDERED: NS IV 500 ML 500 ML IV ONE (14:29)
--- NOTE | 2018-05-14 14:43 | ED Neurological Problem ---
General Chief Complaint: Neuro-Stroke Like Symptoms Stated Complaint: STROKE SYMPTOMS Nursing Triage Note: PT BROUGHT IN BY EMS FROM [facility]. PER EMS, AT 1145 PT STARTED SHOWING STROKE LIKE SYMPTOMS. PT STATES AT THAT TIME HE WAS UNABLE TO HOLD A CUP IN RIGHT HAND AND STATES HE "BLACKED OUT". PT HAS HISTORY OF STROKE THAT AFFECTED IN LEFT SIDE. AT TIME OF ARRIVAL, PT STATES HIS RIGHT HAND IS TINGLING , BUT NO OTHER COMPLAINTS. Nursing Sepsis Screen: No Definite Risk Source: patient Exam Limitations: no limitations History of Present Illness Date Seen by Provider: May 14, 2018 Time Seen by Provider: 13:05 Initial Comments Here with report of stroke like symptoms. Apparently he had some weakness of the right arm. Movement in the left arm. Patient states that he has tingling in his right hand. Apparently he was okay earlier and then went to lunch when they noted that he had the symptoms he reports that he may have blacked out for a little bit. Does have history of stroke involving the left side with left- sided residual. Patient and family report that he's had the tingling in his right hand intermittently over the last 2 weeks. Overall doing much better now and has no residual symptoms. Timing/Duration: 1-3 hours Severity: mild Associated Symptoms: No confusion, No fever/chills, No nausea/vomiting; paresthesia; No slurred speech; weakness Allergies and Home Medications Allergies Coded Allergies: morphine (Verified Adverse Reaction, Intermediate, psychosis, 09/12/12) Home Medications Acetaminophen 325 Mg Tablet, 650 MG PO Q4H PRN for PAIN-MILD OR TEMPATURE, ( Reported) Apixaban 5 Mg Tablet, 5 MG PO BID, (Reported) Aspirin 81 Mg Tablet.dr, 81 MG PO DAILY Prescribed by: TIAN RIVERA on 03/06/18 0550 Atorvastatin Calcium 20 Mg Tablet, 20 MG PO DAILY Prescribed by: TIAN RIVERA on 03/06/18 0550 Buspirone HCl 5 Mg Tablet, 5 MG PO BID, (Reported) Cholecalciferol (Vitamin D3) 2,000 Unit Capsule, 2,000 UNIT PO DAILY, (Reported) Clopidogrel Bisulfate 75 Mg Tablet, 75 MG PO DAILY Prescribed by: TIAN RIVERA on 03/06/18 0550 Divalproex Sodium 125 Mg Cap.sprink, 125 MG PO TID, (Reported) Econazole Nitrate 15 Gm Cream..g., TP HS, (Reported) APPLY TO LEFT FOREARM AND HAND Gabapentin 300 Mg Capsule, 600 MG PO TID, (Reported) TAKES 2 (300MG) CAPSULES Guaifenesin 100 Mg/5 Ml Liquid, 10 ML PO Q8H PRN for COUGH, (Reported) Hydrocodone Bit/Acetaminophen 1 Each Tablet, 1 TAB PO Q8H PRN for PAIN-MODERATE, (Reported) Insulin Aspart 100 Unit/1 Ml Susp, 10 UNIT SQ TIDAC, (Reported) Insulin Determir 1,000 Units/10 Ml Soln, 38 UNITS SQ BID, (Reported) Lactulose 20 Gm/30 Ml Solution, 15 ML PO Q12H PRN for CONSTIPATION-3RD LINE, ( Reported) Levothyroxine Sodium 150 Mcg Tablet, 150 MCG PO 0530, (Reported) Loperamide HCl 2 Mg Tablet, PO UD PRN for DIARRHEA, (Reported) Loratadine 10 Mg Tablet, 10 MG PO DAILY, (Reported) Melatonin 3 Mg Tablet, 3 MG PO HS, (Reported) Metoprolol Tartrate 25 Mg Tablet, 25 MG PO BID, (Reported) Multivitamin 1 Each Tablet, 1 TAB PO DAILY, (Reported) Ranitidine HCl 150 Mg Tablet, 150 MG PO HS, (Reported) Rivastigmine 1 Each Patch.td24, 9.5 MG TD 2000, (Reported) Venlafaxine HCl 75 Mg Tab, 75 MG PO BID, (Reported) Patient Home Medication List Home Medication List Reviewed: Yes Review of Systems Review of Systems Constitutional: see HPI; No chills, No fever Eyes: No Symptoms Reported Ears, Nose, Mouth, Throat: no symptoms reported Respiratory: no symptoms reported Cardiovascular: see HPI; No edema, No palpitations; syncope Gastrointestinal: No abdominal pain, No nausea, No vomiting Genitourinary: no symptoms reported Musculoskeletal: see HPI; No back pain; muscle weakness Skin: no symptoms reported Psychiatric/Neurological: See HPI, Tingling, Weakness, Other (chronic left arm deficit from previous stroke) All Other Systems Reviewed Negative Unless Noted: Yes Past Fukmpnt-Rlqkid-Jscewz Hx Past Med/Social Hx: Reviewed Nursing Past Med/Soc Hx Patient Social History Alcohol Use: Denies Use Recreational Drug Use: No (recently stopped smoking and drinking ) Smoking Status: Former Smoker Type Used: Cigarettes Recent Foreign Travel: No Contact w/Someone Who Travel: No Recent Infectious Disease Expo: No Recent Hopitalizations: No Immunizations Up To Date Date of Pneumonia Vaccine: Mar 15, 2012 Date of Influenza Vaccine: Jan 27, 2018 Past Medical History Surgeries: Yes ( carotid endartetectomy) CABG Respiratory: Yes Pneumonia, Sleep Apnea Currently Using CPAP: No Cardiac: Yes Coronary Artery Disease, High Cholesterol, Hypertension, Peripheral Vascular Neurological: Yes Stroke Reproductive Disorders: No (unknown) Sexually Transmitted Disease: No (unknown) HIV/AIDS: No Kidney Infection, Kidney Stones, Renal Failure Gastrointestinal: Yes Gastroesophageal Reflux, Gastrointestinal Bleed, Hiatal Hernia, Ulcer Musculoskeletal: Yes (CHRONIC LEFT SHOULDER PAIN) Arthritis Endocrine: Yes Diabetes, Insulin dep, Hypothyroidsim Cancer: No Psychosocial: Yes Sleep Difficulties, Anxiety, Depression Integumentary: Yes (CELLULITIS LEFT FOOT) Blood Disorders: No Adverse Reaction/Blood Tranf: No Family Medical History Reviewed Nursing Family Hx Cardiovascular disease 19 MOTHER Completed stroke 19 FATHER 19 MOTHER FH: emphysema Heart Disease, Diabetes Physical Exam Vital Signs Vital Signs - First Documented 05/14/18 12:59 Pulse 77 Resp 20 B/P (MAP) 121/100 (107) Pulse Ox 93 O2 Delivery Room Air Capillary Refill : Less Than 3 Seconds Height, Weight, BMI Height: 5'8.00" Weight: 290lbs. 0.0oz. 131.874789uw; 36.5 BMI Method:Estimated General Appearance: WD/WN, no apparent distress HEENT: PERRL/EOMI, pharynx normal Neck: full range of motion, supple Respiratory: lungs clear, normal breath sounds Cardiovascular: regular rate, rhythm, no murmur Peripheral Pulses: 2+ Dorsalis Pedis (R), 2+ Left Dors-Pedis (L), 2+ Radial Pulses (R), 2+ Radial Pulses (L) Gastrointestinal: non tender, soft Back: normal inspection, no CVA tenderness, no vertebral tenderness Extremities: non-tender, other (for range of motion to the right arm and hands with appropriate strength. No problems with the lower extremities. Left hand contracted and has chronic deficits from previous stroke to the left arm.) Neurologic/Psychiatric: alert, normal mood/affect Crainal Nerves: normal speech, PERRL Coordination/Gait: other (chronic deficit to the left arm) Motor/Sensory: no sensory deficit, pronator drift (R) (very mild), weak motor strength LUE Skin: normal color, warm/dry Stroke NIH Stroke Scale Assessment Level of Consciousness: 0=Alert (0), Level of Consciousness-Questions: 1= Answers one question (1), LOC Commands: 0=Performs both tasks (0), Visual Choi : 0=No visual loss (0), Facial Movement (Facial Paresis): 0=Normal symmetrical mnt (0), Motor Function-Arms Right: 1=Drift (1), Motor Function-Arms Left: 3=No effort/gravity (3), Motor Function-Legs Right: 0=No drift (0), Motor Function- Legs Left: 0=No drift (0), Limb Ataxia: 2=Present in two limbs (2), Sensory: 0= Normal:no loss (0), Best Language: 0=No aphasia (0), Dysarthria: 0=Normal (0), Extinction & Inattention: 0=No abnormality (0), Total: Progress/Results/Core Measures Results/Orders Lab Results Laboratory Tests Test 05/14/18 13:35 05/14/18 13:39 05/14/18 14:32 Range/Units Glucometer 176 H 70-110 MG/DL White Blood Count 9.1 4.3-11.0 10^3/uL Red Blood Count 5.11 4.35-5.85 10^6/uL Hemoglobin 15.0 13.3-17.7 G/DL Hematocrit 45 40-54 % Mean Corpuscular Volume 88 80-99 FL Mean Corpuscular Hemoglobin 29 25-34 PG Mean Corpuscular Hemoglobin Concent 34 32-36 G/DL Red Cell Distribution Width 14.0 10.0-14.5 % Platelet Count 236 130-400 10^3/uL Mean Platelet Volume 10.7 H 7.4-10.4 FL Neutrophils (%) (Auto) 55 42-75 % Lymphocytes (%) (Auto) 34 12-44 % Monocytes (%) (Auto) 9 0-12 % Eosinophils (%) (Auto) 2 0-10 % Basophils (%) (Auto) 0 0-10 % Neutrophils # (Auto) 5.0 1.8-7.8 X 10^3 Lymphocytes # (Auto) 3.1 1.0-4.0 X 10^3 Monocytes # (Auto) 0.8 0.0-1.0 X 10^3 Eosinophils # (Auto) 0.2 0.0-0.3 10^3/uL Basophils # (Auto) 0.0 0.0-0.1 10^3/uL Prothrombin Time 14.6 12.2-14.7 SEC INR Comment 1.1 0.8-1.4 Activated Partial Thromboplast Time 32 24-35 SEC D-Dimer 0.57 H 0.00-0.49 UG/ML Sodium Level 138 135-145 MMOL/L Potassium Level 4.6 3.6-5.0 MMOL/L Chloride Level 103 98-107 MMOL/L Carbon Dioxide Level 23 21-32 MMOL/L Anion Gap 12 5-14 MMOL/L Blood Urea Nitrogen 22 H 7-18 MG/DL Creatinine 1.62 H 0.60-1.30 MG/DL Estimat Glomerular Filtration Rate 42 BUN/Creatinine Ratio 14 Glucose Level 198 H 70-105 MG/DL Calcium Level 9.1 8.5-10.1 MG/DL Corrected Calcium 9.3 8.5-10.1 MG/DL Total Bilirubin 0.5 0.1-1.0 MG/DL Aspartate Amino Transf (AST/SGOT) 32 5-34 U/L Alanine Aminotransferase (ALT/SGPT) 44 0-55 U/L Alkaline Phosphatase 166 H 40-136 U/L Troponin I < 0.30 <0.30 NG/ML Total Protein 7.5 6.4-8.2 GM/DL Albumin 3.8 3.2-4.5 GM/DL Urine Color YELLOW Urine Clarity CLEAR Urine pH 7 5-9 Urine Specific Louann 1.010 L 1.016-1.022 Urine Protein 2+ H NEGATIVE Urine Glucose (UA) 1+ H NEGATIVE Urine Ketones 1+ H NEGATIVE Urine Nitrite NEGATIVE NEGATIVE Urine Bilirubin NEGATIVE NEGATIVE Urine Urobilinogen 4 H NORMAL MG/DL Urine Leukocyte Esterase 1+ H NEGATIVE Urine RBC (Auto) 4+ H NEGATIVE Urine RBC 10-25 H /HPF Urine WBC 25-50 H /HPF Urine Squamous Epithelial Cells 5-10 /HPF Urine Crystals NONE /LPF Urine Bacteria TRACE /HPF Urine Casts PRESENT /LPF Urine Hyaline Casts 25-50 H /LPF Urine Mucus NEGATIVE /LPF Urine Culture Indicated YES My Orders Orders - ANN ALEX MD Ns Iv 500 Ml (Sodium Chloride 0.9%) (05/14/18 14:29) Ceftriaxone For Iv Use (Rocephin For I (05/14/18 16:15) Rx-Cephalexin Capsule (Rx-Keflex Capsule (05/14/18 16:09) Medications Given in ED Current Medications Medications Dose Ordered Sig/Martita Route Start Time Stop Time Status Last Admin Dose Admin Ceftriaxone Sodium 1000 mg/ Sodium Chloride 60 ml @ 100 mls/hr ONCE ONCE IV 05/14/18 16:15 05/14/18 16:50 05/14/18 16:23 100 MLS/HR Sodium Chloride 500 ml @ 0 mls/hr Q0M ONCE IV 05/14/18 14:29 05/14/18 14:32 DC 05/14/18 14:57 500 MLS/HR Vital Signs/I&O 05/14/18 12:59 Pulse 77 Resp 20 B/P (MAP) 121/100 (107) Pulse Ox 93 O2 Delivery Room Air Blood Pressure Mean: 107 FSBG Bedside Testing Finger Stick Blood Glucose: 167 Progress Progress Note : Progress Note Seen and evaluated. Stroke activation initiated. IV, labs, UA, chest x-ray, CT head and EKG ordered. Monitor patient. No acute stroke findings although urinary tract infection noted. We will treat this. Rocephin 1 g IV. We will continue outpatient treatment with Keflex. No indication for admission and patient to be discharged back to [facility]. 1644: Discharged [facility] with return precautions. Patient and family verbalize understanding instructions and agreement with plan. Initial ECG Impression Date: May 14, 2018 Initial ECG Impression Time: 13:28 Initial ECG Rate: 80 Initial ECG Rhythm: Normal Sinus Comment Sinus rhythm with normal but leftward axis. Similar to previous of 23 April 2015. Previous had or significant left bundle branch block which is only partially noted here. No evidence of ST elevation GA. Interpreted by me. Diagnostic Imaging Diagonstic Imaging: Xray Plain Films/CT/US/NM/MRI: chest Comments NAME: [facility] REC#: [id number] PT STATUS: REG ER : 1945 PHYSICIAN: ANA LAURA CHWALA ADMIT DATE: 05/14/18/ER Signed Date of Exam: 05/14/18 CHEST 1 VIEW, AP/PA ONLY INDICATION: Right hand paresthesia. Portable chest 1:17 p.m. FINDINGS: There are postop changes from CABG surgery. Heart size and pulmonary vascularity are normal. Lungs are clear. There are no effusions or pneumothoraces. IMPRESSION: No acute abnormalities in the chest. Dictated by: Dictated on workstation # [id number] Dict: 05/14/18 1326 Trans: 05/14/18 1634 Interpreted by: ANN LÓPEZ MD Electronically signed by: ANN LÓPEZ MD 05/14/18 1639 Diagonstic Imaging: CT Plain Films/CT/US/NM/MRI: head Comments [facility] [place] [place] NAME: [facility] REC#: [id number] PT STATUS: REG ER : 1945 PHYSICIAN: ANA LAURA CHAWLA ADMIT DATE: 05/14/18/ER Draft Date of Exam:05/14/18 CT HEAD WO-R/O STROKE PROCEDURE: CT head wo r/o stroke. TECHNIQUE: Multiple contiguous axial images were obtained through the brain without the use of intravenous contrast. INDICATION: Right arm and hand weakness for one week. COMPARISON: Exam compared to 05/24/2016. FINDINGS: Right hemispheric encephalomalacia on an old ischemic basis is present. The left hemisphere reveals no appreciable edema, hemorrhage, or acute abnormality. Background atrophy and white matter small vessel sequelae with atherosclerotic vascular calcifications are chronic. No acute appearing abnormality. IMPRESSION: Old right hemispheric ischemic sequelae. Chronic senescent changes. No hemorrhage, edema, or acute-appearing abnormality. Results discussed with the ER physician at 1:20 p.m. Dictated on workstation # [id number] Dict: 05/14/18 1318 Trans: 05/14/18 1324 [id number] Interpreted by: JUSTICE GO Electronically signed by: Departure Impression Primary Impression: Urinary tract infection Qualified Codes: N30.00 - Acute cystitis without hematuria Additional Impression: Numbness and tingling in right hand Disposition: 01 HOME, SELF-CARE Condition: Stable Departure-Patient Inst. Decision time for Depature: 16:45 Referrals: LIU LYNN MD (PCP/Family) Primary Care Physician Patient Instructions: Urinary Tract Infection, Adult (DC), Paresthesias (DC) Add. Discharge Instructions: All discharge instructions reviewed with patient and/or family. Voiced understanding. Take medications as directed. Start the cephalexin/Keflex prescription tomorrow night utilizing go pack per instructions on bottle. First dose will be tomorrow evening. Start another prescription the next morning. Follow-up with your Dr. in a few days for recheck. Return for worse pain, weakness, fever , vomiting, breathing problems or other concerns as needed. Scripts Cephalexin (Cephalexin) 500 Mg Tablet 500 MG PO BID, #10 TAB 0 Refills Prov: ANN ALEX MD 05/14/18 ANN ALEX MD May 14, 2018 14:43
[2018-05-14 15:03] LABS: BILIRUBIN,URINE NEGATIVE (NEGATIVE); CLARITY,URINE CLEAR; COLOR,URINE YELLOW; GLUCOSE, URINE (UA) 1+ (NEGATIVE); KETONES,URINE 1+ (NEGATIVE); LEUKOCYTE ESTERASE ,URINE 1+ (NEGATIVE); NITRITE,URINE NEGATIVE (NEGATIVE); PH,URINE 7 (5-9); PROTEIN,URINE 2+ (NEGATIVE); UROBILINOGEN,URINE 4 MG/DL (NORMAL)
[2018-05-14 15:11] LABS: BACTERIA,URINE TRACE /HPF; HYALINE CASTS, URINE 25-50 /LPF; WBC,URINE 25-50 /HPF
[2018-05-14] MEDS ORDERED: RX-CEPHALEXIN (KEFLEX) 250 MG CAP PPK#4 PO STA (16:09)
[2018-05-14] MEDS ORDERED: cefTRIAXone FOR IV USE 1,000 MG in NS (IVPB) 50 ML IV ONE (16:15)
[2018-05-14] MEDS ORDERED: CEPH500T PO (16:47)
[2018-05-14 17:15] VITALS: BP 174/88
== END 2018-05-14 17:15 | disposition home or self-care (01) ==
LOC: EDUNIT# 12:59 → ER 13:00
DX: N39.0 Urinary tract infection, site not specified (principal); R20.2 Paresthesia of skin; R20.0 Anesthesia of skin; G47.30 Sleep apnea, unspecified; E78.00 Pure hypercholesterolemia, unspecified; I25.10 Atherosclerotic heart disease of native coronary artery without angina pectoris; I10 Essential (primary) hypertension; E11.51 Type 2 diabetes mellitus with diabetic peripheral angiopathy without gangrene; I73.9 Peripheral vascular disease, unspecified; K21.9 Gastro-esophageal reflux disease without esophagitis; E03.9 Hypothyroidism, unspecified; F41.9 Anxiety disorder, unspecified; F32.9 Major depressive disorder, single episode, unspecified; Z87.19 Personal history of other diseases of the digestive system; Z82.49 Family history of ischemic heart disease and other diseases of the circulatory system; Z87.442 Personal history of urinary calculi; Z87.440 Personal history of urinary (tract) infections; Z88.5 Allergy status to narcotic agent; Z79.01 Long term (current) use of anticoagulants; Z79.82 Long term (current) use of aspirin; Z79.02 Long term (current) use of antithrombotics/antiplatelets; Z79.4 Long term (current) use of insulin; Z87.891 Personal history of nicotine dependence; Z87.01 Personal history of pneumonia (recurrent); Z95.1 Presence of aortocoronary bypass graft
CPT/HCPCS: 36415; 70450; 71045; 80053; 81000; 82962; 84484; 85025; 85379; 85610; 85730; 87088; 93041

== ENCOUNTER 2018-06-28 19:12 | Outpatient (CLI) | payer MEDICARE, MEDICAID ==
[~2018-06-28 19:12] MED LIST changes: -AMLO10TA6 PO; +AMLO10TA7 PO; +CEPH500T PO; +GABA800T10 PO; -GABA800T2 PO
== END 2018-06-29 07:00 | disposition home or self-care (01) ==
LOC: SLEEP 19:12
PROVIDERS: ATTEND Nurse Practitioner Family
DX: G47.33 Obstructive sleep apnea (adult) (pediatric) (principal); R09.02 Hypoxemia; G47.61 Periodic limb movement disorder
CPT/HCPCS: 95811

== ENCOUNTER → 2018-07-25 | Outpatient (CLI) | payer MEDICARE, MEDICAID | LOC: CARD 13:02 | PROVIDERS: ATTEND Internal Medicine Cardiovascular Disease | DX: I25.10 Atherosclerotic heart disease of native coronary artery without angina pectoris (principal); E78.2 Mixed hyperlipidemia; E11.9 Type 2 diabetes mellitus without complications; E03.9 Hypothyroidism, unspecified; J44.9 Chronic obstructive pulmonary disease, unspecified | CPT/HCPCS: 93306 ==

== ENCOUNTER 2018-08-01 05:34 | Outpatient (CLI) | payer MEDICARE, MEDICAID ==
[~2018-08-01] VITALS: Ht 172.7 cm; Wt 131.5 kg
[2018-08-01] MEDS ORDERED: ASPI-586 PO (15:17)
[2018-08-01] MEDS ORDERED: ATOR40TA70 PO (15:17)
[2018-08-01] MEDS ORDERED: MULT-166 PO (15:17)
== END 2018-08-01 15:21 | disposition home or self-care (01) ==
LOC: PREOP 05:34
PROVIDERS: ATTEND Specialist
DX: Z01.818 Encounter for other preprocedural examination (principal)

== ENCOUNTER 2018-08-03 07:31 | Day surgery (SDC) | payer MEDICARE, MEDICAID ==
[~2018-08-03] VITALS: Ht 172.7 cm; Wt 131.5 kg
[~2018-08-03 07:31] MED LIST changes: +ASPI-586 PO; +MULT-166 PO
[2018-08-03] MEDS ORDERED: MOXIFLOXACIN OPHTH SOLN 5 MG/ML 0.3 ML SYRINGE OP ONE (07:45)
[2018-08-03] MEDS ORDERED: POVIDONE (BETADINE) OPHTH SOLN 5% 30 ML OP ONE (07:45)
[2018-08-03] MEDS ORDERED: TIMOLOL MALEATE 0.5% 5 ML (TIMOPTIC) BTL OU PRN (07:45)
[2018-08-03] MEDS ORDERED: LIDOCAINE PF 1% 2 ML AMP IR PRN (07:45)
[2018-08-03] MEDS: TETRACAINE 0.5% OPHTH SOLN 4 ML BTL (SINGLE DOSE ONLY) OU PRN ×4 (07:54→08:13)
[2018-08-03] MEDS: CYCLOPENTOLATE 1% (CYCLOGYL) 2 ML DROPS OP SCH ×3 (08:01→08:13)
[2018-08-03] MEDS: PHENYLEPHRINE 10% OPHTH (NEO-SYN) 5 ML BTL OU SCH ×3 (08:01→08:14)
[2018-08-03 08:11] VITALS: BP 143/82
--- NOTE | 2018-08-03 08:44 | Ophthalmologist Pre-Op Note ---
Pre-Operative Progress Note H&P Reviewed The H&P was reviewed, patient examined and no changes noted. Date H&P Reviewed: Aug 03, 2018 Time H&P Reviewed: 08:43 Pre-Op Dx Cataract, Right Eye CESAR BORJA MD Aug 03, 2018 08:44
[2018-08-03] MEDS ORDERED: MIDAZOLAM 2 MG/2 ML (VERSED) VIAL ONE (08:56)
[2018-08-03] MEDS ORDERED: proPOfol 200 MG/20 ML (DIPRIVAN) VIAL IV ONE ×2 (09:08→09:21)
--- NOTE | 2018-08-03 09:25 | Ophthalmology Operative Report ---
Cataract removal/placement IOL PREOPERATIVE DIAGNOSIS: Cataract Right Eye POSTOPERATIVE DIAGNOSIS: Cataract Right Eye PROCEDURE: Cataract removal and placement of posterior chamber implant, right eye SURGEON: Brian Borja ANESTHESIA: Topical with sedation COMPLICATIONS: None ESTIMATED BLOOD LOSS: Minimal DESCRIPTION OF PROCEDURE: After proper informed consent was obtained, the patient, a 73 male, was taken to the Operating Room and the right eye was anesthetized with tetracaine. The right eye was then prepped and draped in the usual manner. A wire lid speculum was placed. A paracentesis was made at the left hand position. Preservative free lidocaine was injected into the anterior chamber followed by viscoelastic. A clear corneal incision was made in the temporal position. A capsulorrhexis was preformed and the central nuclear and cortical material were removed. The posterior capsule was polished and Luis Enrique [id number] 10.5 IOL was placed into the capsular bag. The residual viscoelastic was aspirated and balanced saline solution was injected into the anterior chamber. Moxifloxacin was injected into the anterior chamber. The wound was checked and found to be water tight. The patient tolerated the procedure well without complications. BRIAN BORJA MD Aug 03, 2018 09:25
[2018-08-03] MEDS ORDERED: acetaZOLAMIDE ER 500 MG CAP (DIAMOX SEQUELS) PO ONE (09:30)
--- NOTE | 2018-08-03 10:16 | Anesthesia-General Post-Op ---
MAC Patient Condition Mental Status/LOC: Same as Preop Cardiovascular: Satisfactory Nausea/Vomiting: Absent Respiratory: Satisfactory Pain: Controlled Complications: Absent Post Op Complications Complications None Follow Up Care/Instructions Patient Instructions None needed. Anesthesiology Discharge Order Discharge Order Patient is doing well, no complaints, stable vital signs, no apparent adverse anesthesia problems. No complications reported per nursing. LAUREN MILLS CRNA Aug 03, 2018 10:16
[2018-08-03 10:20] VITALS: BP 127/73
[2018-08-03 10:43] VITALS: BP 111/68
[2018-08-03 11:15] VITALS: BP 128/84
== END 2018-08-03 11:20 | disposition home or self-care (01) ==
LOC: SDC 07:31
PROVIDERS: ATTEND Specialist
DX: H25.11 Age-related nuclear cataract, right eye (principal); E11.36 Type 2 diabetes mellitus with diabetic cataract; I25.10 Atherosclerotic heart disease of native coronary artery without angina pectoris; I10 Essential (primary) hypertension; G47.33 Obstructive sleep apnea (adult) (pediatric); E11.41 Type 2 diabetes mellitus with diabetic mononeuropathy; E66.01 Morbid (severe) obesity due to excess calories; Z68.41 Body mass index [BMI] 40.0-44.9, adult; Z86.73 Personal history of transient ischemic attack (TIA), and cerebral infarction without residual deficits; Z87.891 Personal history of nicotine dependence; Z95.1 Presence of aortocoronary bypass graft; Z79.01 Long term (current) use of anticoagulants; Z79.82 Long term (current) use of aspirin; Z79.4 Long term (current) use of insulin; Z79.899 Other long term (current) drug therapy
CPT/HCPCS: 82962

== ENCOUNTER 2018-08-08 07:45 | Day surgery (SDC) | payer MEDICARE, MEDICAID ==
[~2018-08-08] VITALS: Ht 172.7 cm; Wt 131.5 kg
[2018-08-08] MEDS ORDERED: POVIDONE (BETADINE) OPHTH SOLN 5% 30 ML OP ONE (08:15)
[2018-08-08] MEDS ORDERED: TIMOLOL MALEATE 0.5% 5 ML (TIMOPTIC) BTL OU PRN (08:15)
[2018-08-08] MEDS ORDERED: MOXIFLOXACIN OPHTH SOLN 5 MG/ML 0.3 ML SYRINGE OP ONE (08:15)
[2018-08-08] MEDS ORDERED: LIDOCAINE PF 1% 2 ML AMP IR PRN (08:15)
[2018-08-08 08:17] VITALS: BP 113/77
[2018-08-08] MEDS: TETRACAINE 0.5% OPHTH SOLN 4 ML BTL (SINGLE DOSE ONLY) OU PRN ×4 (08:19→08:40)
[2018-08-08] MEDS: PHENYLEPHRINE 10% OPHTH (NEO-SYN) 5 ML BTL OU SCH ×3 (08:30→08:40)
[2018-08-08] MEDS: CYCLOPENTOLATE 1% (CYCLOGYL) 2 ML DROPS OP SCH ×3 (08:30→08:40)
--- NOTE | 2018-08-08 08:59 | Ophthalmologist Pre-Op Note ---
Pre-Operative Progress Note H&P Reviewed The H&P was reviewed, patient examined and no changes noted. Date H&P Reviewed: Aug 08, 2018 Time H&P Reviewed: 08:59 Pre-Op Dx Cataract, Left Eye CESAR BORJA MD Aug 08, 2018 08:59
[2018-08-08] MEDS ORDERED: LIDOCAINE PF 2% 5 ML (XYLOCAINE) VIAL ONE (09:34)
[2018-08-08] MEDS ORDERED: MIDAZOLAM 2 MG/2 ML (VERSED) VIAL ONE (09:34)
[2018-08-08] MEDS ORDERED: SEVOFLURANE (ULTANE) 15 ML INHAL SOLN ONE (09:34)
[2018-08-08] MEDS ORDERED: proPOfol 200 MG/20 ML (DIPRIVAN) VIAL IV ONE (09:34)
--- NOTE | 2018-08-08 09:47 | Ophthalmology Operative Report ---
Cataract, Miotic Pupil PREOPERATIVE DIAGNOSIS: 1. Cataract Left Eye 2. IFIS POSTOPERATIVE DIAGNOSIS: 1. Cataract Left Eye 2. IFIS PROCEDURE: 1. Cataract removal and placement of posterior chamber implant, left eye 2. Pupillary expansion with malyugin ring SURGEON: Brian Borja ANESTHESIA: LMA COMPLICATIONS: None ESTIMATED BLOOD LOSS: Minimal DESCRIPTION OF PROCEDURE: After proper informed consent was obtained, the patient, a [id number] male, was taken to the Operating Room and the left eye was anesthetized with Tetracaine. The eye was then prepped and draped in the usual manner. A wire lid speculum was placed. A paracentesis was made at the left hand position. Preservative free lidocaine was injected into anterior chamber followed by viscoelastic. A clear corneal incision was made in the temporal position. The malyugin ring was injected into the anterior chamber and the pupil was dilated. A capsulorrhexis was preformed and the central nuclear and cortical material were removed. The posterior capsule was polished and Luis Enrique 10.5 [id number] IOL was placed into the capsular bag. The myalgian ring was removed. The residual viscoelastic was aspirated and the balanced saline solution was injected into the anterior chamber. Moxifloxacin was injected into the anterior chamber. The wound was checked and found to be water tight. The patient tolerated the procedure well without complications. BRIAN BORJA MD Aug 08, 2018 09:47
--- OUTSIDE RECORDS SUMMARY | 2018-08-08 09:51 | XMS REPORT | Continuity of Care Document ---
Author Author [facility] Organization [facility] Address Unknown Phone Unavailable Allergies Active Description [...] Yes MORPHINE Drug Allergy 06/20/2012 Yes morphine [id number] Drug Allergy Moderate psychosis 09/12/2012 Medications Medication [...] 06/23/2017 07/22/2017 Daily&0900 MultiVits (Thera M Plus) (jcxfvzsy-kunv-vxcaqxm) oral tablet TAB 06/23/2017 07/22/2017 Daily&0900 Rivastigmine [...] RAMIREZ GHOTRA MD 786.2 COUGH 10/08/2010 LISY DIRECTOR OF STRATEGIC INITIATIVES, KRYSTLE T 401.1 HYPERTENSION, BENIGN ESSENTIAL 10/08/2010 [...] INFARCT 03/21/2012 Ot 414.[address] [facility] [place] CORON 03/21/2012 Ot 414.2 CHRONIC TOTAL OCCLUSION [...] INFECTION OF SKIN AND SUBCUTANEOUS TISSUE 09/11/2012 RKYSTLE WASSERMAN APRN 458.9 HYPOTENSION UNSPECIFIED 09/11/2012 KRYSTLE [...] CRESPO MD Ot 414.01 [address] [facility] [place] CORON 01/18/2013 YANIRA CRESPO MD Ot 428.0 [...] ADULT 04/29/2015 OLENA OLIVEIRA MD Ot Z79.4 RESIDENTIAL (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 OF INSULIN 04/29/2015 OLENA OLIVEIRA [...] (MODERAT 05/24/2016 RANDEE EVANS APRN Ot Z79.4 NURSE PLASTICS (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 OF INSULIN 05/24/2016 RANDEE EVANS APRN Ot Z79.84 NURSE PLASTICS (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 OF ORAL HYPOGLYC 05/24/2016 RANDEE EVANS APRN Ot Z79.899 OTHER RESIDENTIAL (CURRENT) DRUG THERAPY 05/24/2016 RANDEE EVANS APRN [...] (MODERAT 05/25/2016 RANDEE EVANS APRN Ot Z79.4 RESIDENTIAL (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 OF INSULIN 05/25/2016 RANDEE EVANS APRN Ot Z79.84 NURSE PLASTICS (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 OF ORAL HYPOGLYC 05/25/2016 RANDEE EVANS APRN Ot Z79.899 OTHER NURSE PLASTICS (CURRENT) DRUG THERAPY 05/25/2016 RANDEE EVANS APRN [...] (MODERAT 05/26/2016 RANDEE EVANS APRN Ot Z79.4 NURSE PLASTICS (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 OF INSULIN 05/26/2016 RANDEE EVANS APRN Ot Z79.84 RESIDENTIAL (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 OF ORAL HYPOGLYC 05/26/2016 RANDEE EVANS APRN Ot Z79.899 OTHER NURSE PLASTICS (CURRENT) DRUG THERAPY 05/26/2016 RANDEE EVANS APRN [...] (MODERAT 05/30/2016 RANDEE EVANS APRN Ot Z79.4 RESIDENTIAL (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 OF INSULIN 05/30/2016 RANDEE EVANS APRN Ot Z79.84 NURSE PLASTICS (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 OF ORAL HYPOGLYC 05/30/2016 RANDEE EVANS APRN Ot Z79.899 OTHER NURSE PLASTICS (CURRENT) DRUG THERAPY 05/30/2016 RANDEE EVANS APRN [...] farris W 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 07/04/2017 Toni [place] W N18.9 CHRONIC KIDNEY DISEASE, UNSPECIFIED 02/09/2018 ILU PHAM MD Ot E03.9 HYPOTHYROIDISM, UNSPECIFIED 02/13/2018 LIU PHAM MD Ot E03.9 HYPOTHYROIDISM, UNSPECIFIED 02/15/2018 FRITZ RICK DIRECTOR OF STRATEGIC INITIATIVES Ot E11.622 TYPE 2 DIABETES MELLITUS WITH OTHER SKIN 02/15/2018 FRITZ RICK DIRECTOR OF STRATEGIC INITIATIVES Ot I87.2 VENOUS INSUFFICIENCY (CHRONIC) (PERIPHER 02/15/2018 FRITZ RICK DIRECTOR OF STRATEGIC INITIATIVES Ot L97.222 NON-PRESSURE CHRONIC ULCER OF LEFT CALF 02/15/2018 RFITZ RICK DIRECTOR OF STRATEGIC INITIATIVES Ot 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 02/15/2018 FRITZ RICK DIRECTOR OF STRATEGIC INITIATIVES Ot E11.622 TYPE 2 DIABETES MELLITUS WITH OTHER SKIN 02/15/2018 FRITZ RICK DIRECTOR OF STRATEGIC INITIATIVES Ot I87.2 VENOUS INSUFFICIENCY (CHRONIC) (PERIPHER 02/15/2018 FRITZ RICK DIRECTOR OF STRATEGIC INITIATIVES Ot L97.222 NON-PRESSURE CHRONIC ULCER OF LEFT CALF 02/15/2018 FRITZ RICK DIRECTOR OF STRATEGIC INITIATIVES Ot 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 [place] ARTERIES OF EXTREMITI 03/06/2018 TIAN RIVERA MD Ot I70.[address] [facility] 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 [place] ARTERIES OF EXTREMITI 03/08/2018 TIAN RIVERA MD Ot I70.[address] [facility] 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 [place] ARTERIES OF EXTREMITI 03/09/2018 TIAN RIVERA MD, Ot I70.[address] [facility] [place]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 03/09/2018 TIAN RIVERA MD, Ot L97.529 NON-PRESSURE CHRONIC ULCER OTH PRT LEFT 03/09/2018 TIAN RIVERA MD, Ot Z68.35 BODY MASS INDEX (BMI) 35.0-35.9, ADULT 03/09/2018 TIAN RIVERA MD, Ot Z79.01 NURSE PLASTICS (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 OF ANTICOAGULANT 03/09/2018 TIAN RIVERA MD, Ot Z79.4 NURSE PLASTICS (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 OF INSULIN 03/09/2018 TIAN RIVERA MD, Ot Z79.899 OTHER NURSE PLASTICS (CURRENT) DRUG THERAPY 03/13/2018 FRITZ RICK APRN [...] 03/13/2018 FRITZ RICK APRN Ot I70.[address] [facility] 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 [place]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 W C 03/15/2018 PRABHJOT FRITZ R DIRECTOR OF STRATEGIC INITIATIVES Ot I87.2 VENOUS INSUFFICIENCY (CHRONIC) (PERIPHER 03/15/2018 FRITZ RICK DIRECTOR OF STRATEGIC INITIATIVES Ot L97.222 NON-PRESSURE CHRONIC ULCER OF LEFT CALF 03/15/2018 FRITZ RICK DIRECTOR OF STRATEGIC INITIATIVES Ot 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 03/15/2018 FRITZ RICK DIRECTOR OF STRATEGIC INITIATIVES Ot M25.772 OSTEOPHYTE, LEFT ANKLE 03/15/2018 FRITZ RICK DIRECTOR OF STRATEGIC INITIATIVES Ot M77.32 CALCANEAL SPUR, LEFT FOOT 03/21/2018 FRITZ RICK DIRECTOR OF STRATEGIC INITIATIVES Ot E11.622 TYPE 2 DIABETES MELLITUS WITH OTHER SKIN 03/21/2018 FRITZ RCIK DIRECTOR OF STRATEGIC INITIATIVES Ot I70.[address] [facility] 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 [place]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 04/04/2018 FRITZ RICK DIRECTOR OF STRATEGIC INITIATIVES Ot I87.2 VENOUS INSUFFICIENCY (CHRONIC) (PERIPHER 04/04/2018 FRITZ RICK R DIRECTOR OF STRATEGIC INITIATIVES Ot L97.222 NON-PRESSURE CHRONIC ULCER OF LEFT CALF 04/11/2018 FRITZ RICK DIRECTOR OF STRATEGIC INITIATIVES Ot E11.622 TYPE 2 DIABETES MELLITUS WITH OTHER SKIN 04/11/2018 FRITZ RICK DIRECTOR OF STRATEGIC INITIATIVES Ot I70.[address] [facility] 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 [place]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 W [facility] 04/25/2018 PRABHJOT FRITZ R DIRECTOR OF STRATEGIC INITIATIVES Ot I87.2 VENOUS INSUFFICIENCY (CHRONIC) (PERIPHER 04/25/2018 PRABHJOT, FRITZ R DIRECTOR OF STRATEGIC INITIATIVES Ot 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 04/30/2018 PRABHJOT, FRITZ R DIRECTOR OF STRATEGIC INITIATIVES Ot E11.622 TYPE 2 DIABETES MELLITUS WITH OTHER SKIN 04/30/2018 PRABHJOT, FRITZ R DIRECTOR OF STRATEGIC INITIATIVES Ot I70.[address] [facility] [place]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 W [facility] 04/30/2018 PRABHJOT, FRITZ R DIRECTOR OF STRATEGIC INITIATIVES Ot I87.2 VENOUS INSUFFICIENCY (CHRONIC) (PERIPHER 04/30/2018 PRABHJOT, FRITZ R DIRECTOR OF STRATEGIC INITIATIVES Ot L97.222 NON-PRESSURE CHRONIC ULCER OF LEFT CALF 05/01/2018 PRABHJOT, FRITZ R DIRECTOR OF STRATEGIC INITIATIVES Ot E11.622 TYPE 2 DIABETES MELLITUS WITH OTHER SKIN 05/01/2018 PRABHJOT, FRITZ R DIRECTOR OF STRATEGIC INITIATIVES Ot I70.[address] [facility] 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 [place]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 W [facility] 05/02/2018 PRABHJOT, FRITZ R DIRECTOR OF STRATEGIC INITIATIVES Ot I87.2 VENOUS INSUFFICIENCY (CHRONIC) (PERIPHER 05/02/2018 PRABHJOT FRITZ R DIRECTOR OF STRATEGIC INITIATIVES Ot 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 05/02/2018 PRABHJOT FRITZ R DIRECTOR OF STRATEGIC INITIATIVES Ot E11.622 TYPE 2 DIABETES MELLITUS WITH OTHER SKIN 05/02/2018 PRABHJOT, FRITZ R DIRECTOR OF STRATEGIC INITIATIVES Ot I70.[address] [facility] [place]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 W [facility] 05/02/2018 PRABHJOT, FRITZ R DIRECTOR OF STRATEGIC INITIATIVES Ot I87.2 VENOUS INSUFFICIENCY (CHRONIC) (PERIPHER 05/02/2018 PRABHJOT, FRITZ R DIRECTOR OF STRATEGIC INITIATIVES Ot 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 05/04/2018 PRABHJOT, FRITZ R DIRECTOR OF STRATEGIC INITIATIVES Ot E11.622 TYPE 2 DIABETES MELLITUS WITH OTHER SKIN 05/04/2018 PRABHJOT, FRITZ R DIRECTOR OF STRATEGIC INITIATIVES Ot I70.[address] [facility] 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 [place]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 W [facility] 05/07/2018 PRABHJOT FRITZ R DIRECTOR OF STRATEGIC INITIATIVES Ot I87.2 VENOUS INSUFFICIENCY (CHRONIC) (PERIPHER 05/07/2018 PRABHJOT FRITZ R DIRECTOR OF STRATEGIC INITIATIVES Ot 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 05/12/2018 PRABHJOT FRITZ R DIRECTOR OF STRATEGIC INITIATIVES Ot E11.622 TYPE 2 DIABETES MELLITUS WITH OTHER SKIN 05/12/2018 PRABHJOT FRITZ R DIRECTOR OF STRATEGIC INITIATIVES Ot I70.[address] [facility] 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 [place] [place]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 W [facility] 05/12/2018 PRABHJOT, FRITZ R DIRECTOR OF STRATEGIC INITIATIVES Ot I87.2 VENOUS INSUFFICIENCY (CHRONIC) (PERIPHER 05/12/2018 PRABHJOT FRITZ R DIRECTOR OF STRATEGIC INITIATIVES Ot L97.222 NON-PRESSURE CHRONIC ULCER OF LEFT CALF 05/14/2018 ANN ALEX MD Ot E03.9 HYPOTHYROIDISM, UNSPECIFIED 05/14/2018 ANN ALEX MD Ot E11.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 05/14/2018 ANN ALEX MD Ot E78.00 PURE HYPERCHOLESTEROLEMIA, UNSPECIFIED 05/14/2018 ANN ALEX MD Ot F32.9 MAJOR DEPRESSIVE DISORDER, SINGLE EPISOD 05/14/2018 ANN ALEX MD Ot F41.9 ANXIETY DISORDER, UNSPECIFIED 05/14/2018 ANN ALEX MD Ot G47.30 SLEEP APNEA, UNSPECIFIED 05/14/2018 ANN ALEX MD Ot I10 ESSENTIAL (PRIMARY) HYPERTENSION 05/14/2018 ANN ALEX MD Ot 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 05/14/2018 ANN ALEX MD Ot I73.9 PERIPHERAL VASCULAR DISEASE, UNSPECIFIED 05/14/2018 ANN ALEX MD Ot K21.9 GASTRO-ESOPHAGEAL REFLUX DISEASE WITHOUT 05/14/2018 ANN ALEX MD Ot M62.81 MUSCLE WEAKNESS (GENERALIZED) 05/14/2018 ANN ALEX MD Ot N39.0 URINARY TRACT INFECTION, SITE NOT SPECIF 05/14/2018 ANN ALEX MD Ot R20.0 ANESTHESIA OF SKIN 05/14/2018 ANN ALEX MD Ot R20.2 PARESTHESIA OF SKIN 05/14/2018 ANN ALEX MD Ot Z79.01 NURSE PLASTICS (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 OF ANTICOAGULANT 05/14/2018 ANN ALEX MD Ot Z79.02 RESIDENTIAL (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 OF ANTITHROMBOTI 05/14/2018 ANN ALEX MD Ot Z79.4 RESIDENTIAL (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 OF INSULIN 05/14/2018 ANN ALEX MD Ot Z79.82 RESIDENTIAL (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 OF ASPIRIN 05/14/2018 ANN ALEX MD Ot Z82.49 FAMILY HX OF ISCHEM HEART DIS AND OTH DI 05/14/2018 ANN ALEX MD Ot Z87.01 PERSONAL HISTORY OF PNEUMONIA (RECURRENT 05/14/2018 ANN ALEX MD, Ot Z87.19 PERSONAL HISTORY OF OTHER DISEASES OF TH 05/14/2018 ANN ALEX MD, Ot Z87.440 PERSONAL HISTORY OF URINARY (TRACT) INFE 05/14/2018 ANN ALEX MD, Ot Z87.442 PERSONAL HISTORY OF URINARY CALCULI 05/14/2018 ANN ALEX MD, Ot Z87.891 PERSONAL HISTORY OF NICOTINE DEPENDENCE 05/14/2018 ANN ALEX MD, Ot Z88.5 ALLERGY STATUS TO NARCOTIC AGENT STATUS 05/14/2018 ANN ALEX MD, Ot Z95.1 PRESENCE OF AORTOCORONARY BYPASS GRAFT 05/17/2018 ANN ALEX MD, Ot E03.9 HYPOTHYROIDISM, UNSPECIFIED 05/17/2018 ANN ALEX MD, Ot E11.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 05/17/2018 ANN ALEX MD, Ot E78.00 PURE HYPERCHOLESTEROLEMIA, UNSPECIFIED 05/17/2018 ANN ALEX MD, Ot F32.9 MAJOR DEPRESSIVE DISORDER, SINGLE EPISOD 05/17/2018 ANN ALEX MD, Ot F41.9 ANXIETY DISORDER, UNSPECIFIED 05/17/2018 ANN ALEX MD, Ot G47.30 SLEEP APNEA, UNSPECIFIED 05/17/2018 ANN ALEX MD, Ot I10 ESSENTIAL (PRIMARY) HYPERTENSION 05/17/2018 ANN ALEX MD, Ot 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 05/17/2018 ANN ALEX MD, Ot I73.9 PERIPHERAL VASCULAR DISEASE, UNSPECIFIED 05/17/2018 ANN ALEX MD, Ot K21.9 GASTRO-ESOPHAGEAL REFLUX DISEASE WITHOUT 05/17/2018 ANN ALEX MD, Ot M62.81 MUSCLE WEAKNESS (GENERALIZED) 05/17/2018 ANN ALEX MD, Ot N39.0 URINARY TRACT INFECTION, SITE NOT SPECIF 05/17/2018 ANN ALEX MD, Ot R20.0 ANESTHESIA OF SKIN 05/17/2018 ANN ALEX MD, Ot R20.2 PARESTHESIA OF SKIN 05/17/2018 ANN ALEX MD, Ot Z79.01 NURSE PLASTICS (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 OF ANTICOAGULANT 05/17/2018 ANN ALEX MD, Ot Z79.02 RESIDENTIAL (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 OF ANTITHROMBOTI 05/17/2018 ANN ALEX MD, Ot Z79.4 RESIDENTIAL (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 OF INSULIN 05/17/2018 ANN ALEX MD, Ot Z79.82 NURSE PLASTICS (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 OF ASPIRIN 05/17/2018 ANN ALEX MD, Ot Z82.49 FAMILY HX OF ISCHEM HEART DIS AND OTH DI 05/17/2018 ANN ALEX MD, Ot Z87.01 PERSONAL HISTORY OF PNEUMONIA (RECURRENT 05/17/2018 ANN ALEX MD, Ot Z87.19 PERSONAL HISTORY OF OTHER DISEASES OF TH 05/17/2018 ANN ALEX MD, Ot Z87.440 PERSONAL HISTORY OF URINARY (TRACT) INFE 05/17/2018 ANN ALEX MD, Ot Z87.442 PERSONAL HISTORY OF URINARY CALCULI 05/17/2018 ANN ALEX MD, Ot Z87.891 PERSONAL HISTORY OF NICOTINE DEPENDENCE 05/17/2018 ANN ALEX MD, Ot Z88.5 ALLERGY STATUS TO NARCOTIC AGENT STATUS 05/17/2018 ANN ALEX MD, Ot Z95.1 PRESENCE OF AORTOCORONARY BYPASS GRAFT 05/17/2018 FRITZ RICK APRN Ot E11.622 TYPE 2 DIABETES MELLITUS WITH OTHER SKIN 05/17/2018 FRITZ RICK APRN Ot I70.[address] [facility]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 W [facility] 05/17/2018 FRITZ RICK APRN Ot I87.2 VENOUS INSUFFICIENCY (CHRONIC) (PERIPHER 05/17/2018 FRITZ RICK APRN Ot 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 05/18/2018 FRITZ RICK APRN Ot E11.622 TYPE 2 DIABETES MELLITUS WITH OTHER SKIN 05/18/2018 FRITZ RICK APRN Ot I70.[address] [facility]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 W [facility] 05/18/2018 FRITZ RICK APRN Ot I87.2 VENOUS INSUFFICIENCY (CHRONIC) (PERIPHER 05/18/2018 FRITZ RICK APRN Ot L97.222 NON-PRESSURE CHRONIC ULCER OF LEFT CALF 05/18/2018 FRITZ RICK APRN Ot 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 05/20/2018 ANN ALEX MD Ot E03.9 HYPOTHYROIDISM, UNSPECIFIED 05/20/2018 ANN ALEX MD, Ot E11.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 05/20/2018 ANN ALEX MD, Ot E78.00 PURE HYPERCHOLESTEROLEMIA, UNSPECIFIED 05/20/2018 ANN ALEX MD Ot F32.9 MAJOR DEPRESSIVE DISORDER, SINGLE EPISOD 05/20/2018 ANN ALEX MD, Ot F41.9 ANXIETY DISORDER, UNSPECIFIED 05/20/2018 ANN ALEX MD, Ot G47.30 SLEEP APNEA, UNSPECIFIED 05/20/2018 ANN ALEX MD, Ot I10 ESSENTIAL (PRIMARY) HYPERTENSION 05/20/2018 ANN ALEX MD, Ot 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 05/20/2018 ANN ALEX MD, Ot I73.9 PERIPHERAL VASCULAR DISEASE, UNSPECIFIED 05/20/2018 ANN ALEX MD, Ot K21.9 GASTRO-ESOPHAGEAL REFLUX DISEASE WITHOUT 05/20/2018 ANN ALEX MD Ot M62.81 MUSCLE WEAKNESS (GENERALIZED) 05/20/2018 ANN ALEX MD Ot N39.0 URINARY TRACT INFECTION, SITE NOT SPECIF 05/20/2018 ANN ALEX MD Ot R20.0 ANESTHESIA OF SKIN 05/20/2018 ANN ALEX MD Ot R20.2 PARESTHESIA OF SKIN 05/20/2018 ANN ALEX MD Ot Z79.01 RESIDENTIAL (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 OF ANTICOAGULANT 05/20/2018 ANN ALEX MD Ot Z79.02 NURSE PLASTICS (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 OF ANTITHROMBOTI 05/20/2018 ANN ALEX MD Ot Z79.4 NURSE PLASTICS (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 OF INSULIN 05/20/2018 ANN ALEX MD Ot Z79.82 RESIDENTIAL (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 OF ASPIRIN 05/20/2018 ANN ALEX MD Ot Z82.49 FAMILY HX OF ISCHEM HEART DIS AND OTH DI 05/20/2018 ANN ALEX MD Ot Z87.01 PERSONAL HISTORY OF PNEUMONIA (RECURRENT 05/20/2018 ANN ALEX MD Ot Z87.19 PERSONAL HISTORY OF OTHER DISEASES OF TH 05/20/2018 ANN ALEX MD Ot Z87.440 PERSONAL HISTORY OF URINARY (TRACT) INFE 05/20/2018 ANN ALEX MD Ot Z87.442 PERSONAL HISTORY OF URINARY CALCULI 05/20/2018 ANN ALEX MD, Ot Z87.891 PERSONAL HISTORY OF NICOTINE DEPENDENCE 05/20/2018 ANN ALEX MD, Ot Z88.5 ALLERGY STATUS TO NARCOTIC AGENT STATUS 05/20/2018 ANN ALEX MD, Ot Z95.1 PRESENCE OF AORTOCORONARY BYPASS GRAFT 05/21/2018 FRITZ RICK DIRECTOR OF STRATEGIC INITIATIVES Ot E11.622 TYPE 2 DIABETES MELLITUS WITH OTHER SKIN 05/21/2018 FRITZ RICK DIRECTOR OF STRATEGIC INITIATIVES Ot I70.[address] [facility] 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 06/04/2018 HERNANDEZ ANDERSON DIRECTOR OF STRATEGIC INITIATIVES Ot G47.30 SLEEP APNEA, UNSPECIFIED 06/28/2018 HERNANDEZ ANDERSON DIRECTOR OF STRATEGIC INITIATIVES Ot G47.30 SLEEP APNEA, UNSPECIFIED 06/28/2018 MONICADEVANG GARCIAINE E DIRECTOR OF STRATEGIC INITIATIVES Ot G47.30 SLEEP APNEA, UNSPECIFIED 06/29/2018 MONICADEVANG GARCIAINE E DIRECTOR OF STRATEGIC INITIATIVES Ot G47.33 OBSTRUCTIVE SLEEP APNEA (ADULT) (PEDIATR 06/29/2018 MONICA, HERNANDEZ E DIRECTOR OF STRATEGIC INITIATIVES Ot G47.61 PERIODIC LIMB MOVEMENT DISORDER 06/29/2018 MONICADEVANG GARCIAINE E DIRECTOR OF STRATEGIC INITIATIVES Ot R09.02 HYPOXEMIA 07/06/2018 MONICADEVANG GARCIAINE E DIRECTOR OF STRATEGIC INITIATIVES Ot G47.33 OBSTRUCTIVE SLEEP APNEA (ADULT) (PEDIATR 07/06/2018 MONICA, HERNANDEZ E DIRECTOR OF STRATEGIC INITIATIVES Ot G47.61 PERIODIC LIMB MOVEMENT DISORDER 07/06/2018 HERNANDEZ ANDERSON DIRECTOR OF STRATEGIC INITIATIVES Ot R09.02 HYPOXEMIA 07/25/2018 LEAH ESPINAL, LIU Gallagher Ot E03.9 HYPOTHYROIDISM, UNSPECIFIED 07/25/2018 FRITZ RICK DIRECTOR OF STRATEGIC INITIATIVES Ot E11.622 TYPE 2 DIABETES MELLITUS WITH OTHER SKIN 07/25/2018 FRITZ RICK DIRECTOR OF STRATEGIC INITIATIVES Ot I87.2 VENOUS INSUFFICIENCY (CHRONIC) (PERIPHER 07/25/2018 FRITZ RICK R DIRECTOR OF STRATEGIC INITIATIVES Ot L97.222 NON-PRESSURE CHRONIC ULCER OF LEFT CALF 07/25/2018 FRITZ RICK R DIRECTOR OF STRATEGIC INITIATIVES Ot 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 07/25/2018 FRITZ RICK R DIRECTOR OF STRATEGIC INITIATIVES Ot E11.622 TYPE 2 DIABETES MELLITUS WITH OTHER SKIN 07/25/2018 PRABHJOT FRITZ R DIRECTOR OF STRATEGIC INITIATIVES Ot I70.[address] [facility] [place]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 W [facility] 07/25/2018 FRITZ RICK DIRECTOR OF STRATEGIC INITIATIVES Ot I87.2 VENOUS INSUFFICIENCY (CHRONIC) (PERIPHER 07/25/2018 FRITZ RICK R DIRECTOR OF STRATEGIC INITIATIVES Ot L97.222 NON-PRESSURE CHRONIC ULCER OF LEFT CALF 07/25/2018 PRABHJOT FRITZ R DIRECTOR OF STRATEGIC INITIATIVES Ot 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 07/25/2018 FRITZ RICK R DIRECTOR OF STRATEGIC INITIATIVES Ot E11.622 TYPE 2 DIABETES MELLITUS WITH OTHER SKIN 07/25/2018 FRITZ RICK R DIRECTOR OF STRATEGIC INITIATIVES Ot I70.[address] [facility] [place]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 W [facility] 07/25/2018 FRITZ RICK R DIRECTOR OF STRATEGIC INITIATIVES Ot I87.2 VENOUS INSUFFICIENCY (CHRONIC) (PERIPHER 07/25/2018 FRITZ RICK R DIRECTOR OF STRATEGIC INITIATIVES Ot L97.222 NON-PRESSURE CHRONIC ULCER OF LEFT CALF 07/25/2018 FRITZ RICK DIRECTOR OF STRATEGIC INITIATIVES Ot 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 07/25/2018 LUIS ARMANDO MARTINEZ MD Ot E11.622 TYPE 2 DIABETES MELLITUS WITH OTHER SKIN 07/25/2018 LUIS ARMANDO MARTINEZ MD Ot I70.[address] [facility] [place]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 W [facility] 07/25/2018 LUIS ARMANDO MARTINEZ MD Ot I87.2 VENOUS INSUFFICIENCY (CHRONIC) (PERIPHER 07/25/2018 LUIS ARMANDO MARTINEZ MD Ot L97.222 NON-PRESSURE CHRONIC ULCER OF LEFT CALF 07/25/2018 LUIS ARMANDO MARTINEZ MD Ot 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 07/25/2018 FRITZ RICK DIRECTOR OF STRATEGIC INITIATIVES Ot I70.[address] [facility] [place]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 W [facility] 07/25/2018 FRITZ RICK DIRECTOR OF STRATEGIC INITIATIVES Ot I87.2 VENOUS INSUFFICIENCY (CHRONIC) (PERIPHER 07/25/2018 FRITZ RICK DIRECTOR OF STRATEGIC INITIATIVES Ot L97.222 NON-PRESSURE CHRONIC ULCER OF LEFT CALF 07/25/2018 FRITZ RICK DIRECTOR OF STRATEGIC INITIATIVES Ot 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 07/25/2018 FRITZ RICK DIRECTOR OF STRATEGIC INITIATIVES Ot E11.622 TYPE 2 DIABETES MELLITUS WITH OTHER SKIN 07/25/2018 FRITZ RICK DIRECTOR OF STRATEGIC INITIATIVES Ot I70.[address] [facility] 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 [place]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 W [facility] 07/25/2018 FRITZ RICK DIRECTOR OF STRATEGIC INITIATIVES Ot I87.2 VENOUS INSUFFICIENCY (CHRONIC) (PERIPHER 07/25/2018 PRABHJOT FRITZ R DIRECTOR OF STRATEGIC INITIATIVES Ot L97.222 NON-PRESSURE CHRONIC ULCER OF LEFT CALF 07/25/2018 FRITZ RICK R DIRECTOR OF STRATEGIC INITIATIVES Ot 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 07/25/2018 FRITZ RICK R DIRECTOR OF STRATEGIC INITIATIVES Ot E11.622 TYPE 2 DIABETES MELLITUS WITH OTHER SKIN 07/25/2018 PRABHJOT FRITZ R DIRECTOR OF STRATEGIC INITIATIVES Ot I70.[address] [facility] [place]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 W [facility] 07/25/2018 PRABHJOT FRITZ R DIRECTOR OF STRATEGIC INITIATIVES Ot I87.2 VENOUS INSUFFICIENCY (CHRONIC) (PERIPHER 07/25/2018 PRABHJOT FRITZ R DIRECTOR OF STRATEGIC INITIATIVES Ot 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 07/25/2018 FRITZ RICK R DIRECTOR OF STRATEGIC INITIATIVES Ot E11.622 TYPE 2 DIABETES MELLITUS WITH OTHER SKIN 07/25/2018 PRABHJOT FRITZ R DIRECTOR OF STRATEGIC INITIATIVES Ot I70.[address] [facility] [place]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 W [facility] 07/25/2018 FRITZ RICK R DIRECTOR OF STRATEGIC INITIATIVES Ot I87.2 VENOUS INSUFFICIENCY (CHRONIC) (PERIPHER 07/25/2018 FRITZ RICK R DIRECTOR OF STRATEGIC INITIATIVES Ot L97.222 NON-PRESSURE CHRONIC ULCER OF LEFT CALF 07/25/2018 FRITZ RICK R DIRECTOR OF STRATEGIC INITIATIVES Ot E11.622 TYPE 2 DIABETES MELLITUS WITH OTHER SKIN 07/25/2018 FRITZ RICK R DIRECTOR OF STRATEGIC INITIATIVES Ot I70.[address] [facility] [place]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 W [facility] 07/25/2018 PRABHJOT FRITZ R DIRECTOR OF STRATEGIC INITIATIVES Ot I87.2 VENOUS INSUFFICIENCY (CHRONIC) (PERIPHER 07/25/2018 FRITZ RICK DIRECTOR OF STRATEGIC INITIATIVES Ot L97.222 NON-PRESSURE CHRONIC ULCER OF LEFT CALF 07/25/2018 FRITZ RICK R DIRECTOR OF STRATEGIC INITIATIVES Ot 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 07/25/2018 FRITZ RICK R DIRECTOR OF STRATEGIC INITIATIVES Ot E11.622 TYPE 2 DIABETES MELLITUS WITH OTHER SKIN 07/25/2018 FRITZ RICK R DIRECTOR OF STRATEGIC INITIATIVES Ot I70.[address] [facility] [place]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 W [facility] 07/25/2018 PRABHJOT FRITZ R DIRECTOR OF STRATEGIC INITIATIVES Ot I87.2 VENOUS INSUFFICIENCY (CHRONIC) (PERIPHER 07/25/2018 FRITZ RICK R DIRECTOR OF STRATEGIC INITIATIVES Ot L97.222 NON-PRESSURE CHRONIC ULCER OF LEFT CALF 07/25/2018 FRITZ RICK R DIRECTOR OF STRATEGIC INITIATIVES Ot 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 07/25/2018 PRABHJOT FRITZ R DIRECTOR OF STRATEGIC INITIATIVES Ot E11.622 TYPE 2 DIABETES MELLITUS WITH OTHER SKIN 07/25/2018 PRABHJOT, FRITZ R DIRECTOR OF STRATEGIC INITIATIVES Ot I70.[address] [facility] 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 08/06/2018 CESAR BORJA MD, Ot Z68.41 BODY MASS INDEX (BMI) 40.0-44.9, ADULT 08/06/2018 CESAR BORJA MD, Ot Z79.01 NURSE PLASTICS (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 OF ANTICOAGULANT 08/06/2018 CESAR BORJA MD, Ot Z79.4 NURSE PLASTICS (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 OF INSULIN 08/06/2018 CESAR BORJA MD Ot Z79.82 RESIDENTIAL (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 OF ASPIRIN 08/06/2018 CESAR BORJA MD, Ot Z79.899 OTHER RESIDENTIAL (CURRENT) DRUG THERAPY 08/06/2018 CESAR BORJA MD, Ot Z86.73 PRSNL HX OF TIA (TIA), AND CEREB INFRC W 08/06/2018 CESAR BORJA MD, Ot Z87.891 PERSONAL HISTORY OF NICOTINE DEPENDENCE 08/06/2018 CESAR BORJA MD, Ot Z95.1 PRESENCE OF AORTOCORONARY BYPASS GRAFT Procedures Code Description [place] [address] LIPID PANEL 03/14/2012 51511 ECHO 2D 03/14/2012 93819 HEART CATH 03/14/2012 37.22 LEFT HEART CARDIAC CATH 03/19/2012 88.53 LT HEART ANGIOCARDIOGRAM 03/19/2012 88.56 CORONAR ARTERIOGR-2 CATH 03/19/2012 32352 BMP 04/13/2012 06292 LIVER PANEL (LFT) 04/13/2012 LIPOPROT LIPOPROTIEN PANEL 04/13/2012 52643 GLUCOSE FINGER STICK 04/13/2012 76198 A1C (IN-HOUSE) 04/13/2012 59334 MEASURE BLOOD OXYGEN LEVEL 06/21/2012 Cardiolog Ricardo Ta 08/16/2012 90921 ROUTINE VENIPUNCTURE 09/11/2012 04286 CBC 09/11/2012 34322 CMP 09/11/2012 0121770 GFR CALC (RESULT ONLY) 09/11/2012 Physical Occupational Therapy 01/23/2013 05009 BIOPSY SKIN LESION (SINGLE) 02/18/2013 Results Test [...] 5-8.5 Urine-Protein Negative Negative Urine-RBC 0-2/HPF Urine-Specific [place] 1.020 1.000-1.030 Urine-WBC 0-2/HPF Urobilinogen 1.0 0.2-1.0 [...] resistant Staphylococcus aureus (MRSA) screening culture NEG NR Capillary blood glucose measurement by glucometer (mass/volume) [...] 09:39 Gram stain microscopy No bacteria seen NRG Bacteria identification in wound by culture - [...] S NRG Minocycline susc JUHI <= NRG Capillary blood glucose measurement by glucometer (mass/volume) - 05/14/18 13: 35 Capillary blood glucose measurement by glucometer (mass/volume) 176 mg/dL 70-110 Complete blood count (CBC) with automated white blood cell (WBC) differential - 05/14/18 13:39 Blood leukocytes automated count (number/volume) 9.1 10*3/uL 4.3-11.0 Blood erythrocytes automated count (number/volume) 5.11 10*6/uL 4.35-5.85 Venous blood hemoglobin measurement (mass/volume) 15.0 g/dL 13.3-17.7 Blood hematocrit (volume fraction) 45 % 40-54 Automated erythrocyte mean corpuscular volume 88 [foz_us] 80-99 Automated erythrocyte mean corpuscular hemoglobin (mass per erythrocyte) 29 pg 25-34 Automated erythrocyte mean corpuscular hemoglobin concentration measurement ( mass/volume) 34 g/dL 32-36 Automated erythrocyte distribution width ratio 14.0 % 10.0-14.5 Automated blood platelet count (count/volume) 236 10*3/uL 130-400 Automated blood platelet mean volume measurement 10.7 [foz_us] 7.4-10.4 Automated blood neutrophils/100 leukocytes 55 % 42-75 Automated blood lymphocytes/100 leukocytes 34 % 12-44 Blood monocytes/100 leukocytes 9 % 0-12 Automated blood eosinophils/100 leukocytes 2 % 0-10 Automated blood basophils/100 leukocytes 0 % 0-10 Blood neutrophils automated count (number/volume) 5.0 10*3 1.8-7.8 Blood lymphocytes automated count (number/volume) 3.1 10*3 1.0-4.0 Blood monocytes automated count (number/volume) 0.8 10*3 0.0-1.0 Automated eosinophil count 0.2 10*3/uL 0.0-0.3 Automated blood basophil count (count/volume) 0.0 10*3/uL 0.0-0.1 PT panel in platelet poor plasma by coagulation assay - 05/14/18 13:39 Prothrombin time (PT) in platelet poor plasma by coagulation assay 14.6 s 12.2-14.7 INR in platelet poor plasma or blood by coagulation assay 1.1 0.8-1.4 Activated partial thromboplastin time (aPTT) in platelet poor plasma bycoagulation assay - 05/14/18 13:39 Activated partial thromboplastin time (aPTT) in platelet poor plasma bycoagulation assay 32 s 24-35 Fibrin D-dimer FEU measurement in platelet poor plasma (mass/volume) - 13:39 Fibrin D-dimer FEU measurement in platelet poor plasma (mass/volume) 0.57 ug/mL 0.00-0.49 Comprehensive metabolic panel - 05/14/18 13:39 Serum or plasma sodium measurement (moles/volume) 138 mmol/L 135-145 Serum or plasma potassium measurement (moles/volume) 4.6 mmol/L 3.6-5.0 Serum or plasma chloride measurement (moles/volume) 103 mmol/L 98-107 Carbon dioxide 23 mmol/L 21-32 Serum or plasma anion gap determination (moles/volume) 12 mmol/L 5-14 Serum or plasma urea nitrogen measurement (mass/volume) 22 mg/dL 7-18 Serum or plasma creatinine measurement (mass/volume) 1.62 mg/dL 0.60-1.30 Serum or plasma urea nitrogen/creatinine mass ratio 14 NRG Serum or plasma creatinine measurement with calculation of estimated glomerular filtration rate 42 NRG Serum or plasma glucose measurement (mass/volume) 198 mg/dL 70-105 Serum or plasma calcium measurement (mass/volume) 9.1 mg/dL 8.5-10.1 Serum or plasma total bilirubin measurement (mass/volume) 0.5 mg/dL 0.1-1.0 Serum or plasma alkaline phosphatase measurement (enzymatic activity/volume) 166 U/L 40-136 Serum or plasma aspartate aminotransferase measurement (enzymatic activity/ volume) 32 U/L 5-34 Serum or plasma alanine aminotransferase measurement (enzymatic activity/volume ) 44 U/L 0-55 Serum or plasma protein measurement (mass/volume) 7.5 g/dL 6.4-8.2 Serum or plasma albumin measurement (mass/volume) 3.8 g/dL 3.2-4.5 CALCIUM CORRECTED 9.3 mg/dL 8.5-10.1 Serum or plasma troponin i.cardiac measurement (mass/volume) - 05/14/18 13:39 Serum or plasma troponin i.cardiac measurement (mass/volume) < ng/ mL <0.30 Complete urinalysis with reflex to culture - 05/14/18 14:32 Urine color determination YELLOW NRG Urine clarity determination CLEAR NRG Urine pH measurement by test strip 7 5-9 Specific gravity of urine by test strip 1.010 1.016- 1.022 Urine protein assay by test strip, semi-quantitative 2+ NEGATIVE Urine glucose detection by automated test strip 1+ NEGATIVE Erythrocytes detection in urine sediment by light microscopy 4+ NEGATIVE Urine ketones detection by automated test strip 1+ NEGATIVE Urine nitrite detection by test strip NEGATIVE NEGATIVE Urine total bilirubin detection by test strip NEGATIVE NEGATIVE Urine urobilinogen measurement by automated test strip (mass/volume) 4 mg/dL NORMAL Urine leukocyte esterase detection by dipstick 1+ NEGATIVE Automated urine sediment erythrocyte count by microscopy (number/high power field) [HPF] NRG Automated urine sediment leukocyte count by microscopy (number/high power field ) [HPF] NRG Bacteria detection in urine sediment by light microscopy TRACE NRG Squamous epithelial cells detection in urine sediment by light microscopy 5-10 NRG Crystals detection in urine sediment by light microscopy NONE NRG Casts detection in urine sediment by light microscopy PRESENT NRG Mucus detection in urine sediment by light microscopy NEGATIVE NRG Complete urinalysis with reflex to culture YES NRG Hyaline casts detection in urine sediment by light microscopy 25-50 NRG Bacterial urine culture - 05/14/18 14:32 Bacterial urine culture NG NRG Capillary blood glucose measurement by glucometer (mass/volume) - 08/03/18 08: 08 Capillary blood glucose measurement by glucometer (mass/volume) 284 mg/dL 70-110 Capillary blood glucose measurement by glucometer (mass/volume) - 08/08/18 08: 12 Capillary blood glucose measurement by glucometer (mass/volume) 258 mg/dL 70-110 Encounters ACCT No. Visit Date/Time Discharge Status Pt. Type Provider Facility Loc./Unit Complaint [id number] 06/23/2014 11:47:29 06/23/2014 23:59:59 CLS Outpatient Nathen Parker [id number] 04/23/2014 10:07:45 04/23/2014 23:59:59 CLS Outpatient Nathen Parker [id number] 02/27/2014 09:19:41 02/27/2014 23:59:59 CLS Outpatient Nathen Parker [id number] 12/14/2017 09:20:00 12/14/2017 23:59:59 CLS Outpatient YANIRA CRESPO MD [facility] [id number] 02/25/2013 15:23:00 02/25/2013 23:59:59 CLS Outpatient RAMIREZ GHOTRA MD [id number] 02/18/2013 09:44:00 02/18/2013 23:59:59 CLS Outpatient KRYSTLE WASSERMAN APRN [id number] 01/22/2013 16:19:00 01/22/2013 23:59:59 CLS Outpatient YANIRA CRESPO MD [id number] 07/26/2012 15:30:00 07/26/2012 23:59:59 CLS Outpatient YANIRA CRESPO MD [id number] 06/20/2012 09:10:00 06/20/2012 23:59:59 CLS Outpatient GENTILE MIO CARIAS Elliott [id number] 06/13/2012 15:27:00 06/13/2012 23:59:59 CLS Outpatient KRYSTLE WASSERMAN APRN [id number] 04/30/2012 08:41:00 04/30/2012 23:59:59 CLS Outpatient KRYSTLE WASSERMAN APRN [id number] 04/19/2012 10:58:00 04/19/2012 23:59:59 CLS Outpatient YANIRA CRESPO MD [id number] 04/12/2012 17:48:00 04/12/2012 23:59:59 [place] [id number] 03/14/2012 08:36:00 03/14/2012 23:59:59 CLS Outpatient KRYSTLE WASSERMAN APRN [id number] 12/06/2012 10:39:00 Document Registration [id number] 10/09/2012 09:21:00 Document Registration [id number] 09/11/2012 11:46:00 Document Registration [id number] 09/11/2012 11:46:00 Document Registration [id number] 08/27/2012 09:52:00 Document Registration [id number] 09/22/2017 18:10:00 09/22/2017 23:59:00 DIS Outpatient Liu Pham [id number] 06/22/2017 16:22:00 07/04/2017 10:00:00 DIS Inpatient [facility] [id number] 05/19/2017 18:39:00 05/19/2017 23:59:00 DIS Outpatient Liu Pham [id number] 04/10/2016 15:23:00 04/10/2016 23:59:00 DIS Outpatient Liu Pham [id number] 06/22/2017 17:08:40 Document Registration [id number] 08/03/2018 07:31:00 08/03/2018 23:59:59 CLS Outpatient CESAR BORJA MD [facility] CATARACT RIGHT EYE [id number] 08/01/2018 05:34:00 08/01/2018 15:21:00 DIS Outpatient CESAR BORJA MD [facility] PREOP CATARACT RIGHT EYE [id number] 07/25/2018 14:14:00 07/25/2018 23:59:59 CLS Preadmit HERNANDEZ ANDERSON DIRECTOR OF STRATEGIC INITIATIVES [facility] SLEEP SLEEP APNEA [id number] 07/25/2018 13:02:00 07/25/2018 23:59:59 CLS Outpatient MIGUEL ESPINAL, TIAN [place] [facility] CARD CAD,COPD [id number] 06/28/2018 19:12:00 06/29/2018 07:00:00 DIS Outpatient HERNANDEZ ANDERSON DIRECTOR OF STRATEGIC INITIATIVES [facility] SLEEP SLEEP APNEA [id number] 05/14/2018 13:00:00 05/14/2018 17:15:00 DIS Emergency ANN ALEX MD [facility] ER STROKE SYMPTOMS [id number] 05/01/2018 08:51:00 05/01/2018 23:59:59 CLS Outpatient PRABHJOT FRITZ R DIRECTOR OF STRATEGIC INITIATIVES [facility] WOUNDCARE [id number] 04/24/2018 08:52:00 04/24/2018 23:59:59 CLS Outpatient PRABHJOT, FRITZ R DIRECTOR OF STRATEGIC INITIATIVES [facility] WOUNDCARE [id number] 04/17/2018 10:00:00 04/17/2018 23:59:59 CLS Outpatient PRABHJOT, FRITZ R DIRECTOR OF STRATEGIC INITIATIVES [facility] WOUNDCARE [id number] 04/10/2018 08:57:00 04/10/2018 23:59:59 CLS Outpatient PRABHJOT, FRITZ R DIRECTOR OF STRATEGIC INITIATIVES [facility] WOUNDCARE [id number] 04/03/2018 08:39:00 04/03/2018 23:59:59 CLS Outpatient PRABHJOT, FRITZ R DIRECTOR OF STRATEGIC INITIATIVES [facility] WOUNDCARE [id number] 03/27/2018 08:55:00 03/27/2018 23:59:59 CLS Outpatient PRABHJOT, FRITZ R DIRECTOR OF STRATEGIC INITIATIVES [facility] WOUNDCARE [id number] 03/20/2018 09:16:00 03/20/2018 23:59:59 CLS Outpatient PRABHJOT, FRITZ R DIRECTOR OF STRATEGIC INITIATIVES [facility] WOUNDCARE [id number] 03/13/2018 10:15:00 03/13/2018 23:59:59 CLS Outpatient FRITZ RICK DIRECTOR OF STRATEGIC INITIATIVES [facility] RAD I87.2 [id number] 03/13/2018 09:04:00 03/13/2018 23:59:59 CLS Outpatient FRITZ RICK DIRECTOR OF STRATEGIC INITIATIVES [facility] WOUNDCARE [id number] 03/05/2018 07:31:00 03/06/2018 13:40:00 DIS Outpatient MIGUEL ESPINAL, TIAN [place] [facility] CATH PAD,CAD,HTN,HLP [id number] 02/27/2018 09:15:00 02/27/2018 23:59:59 CLS Outpatient LUIS ARMANDO MARTINEZ MD [facility] WOUNDCARE [id number] 02/20/2018 09:50:00 02/20/2018 23:59:59 CLS Outpatient FRITZ RICK DIRECTOR OF STRATEGIC INITIATIVES [facility] LAB I87.2,E11.622 [id number] 02/20/2018 09:02:00 02/20/2018 23:59:59 CLS Outpatient FRITZ RICK DIRECTOR OF STRATEGIC INITIATIVES [facility] WOUNDCARE [id number] 02/13/2018 08:14:00 02/13/2018 23:59:59 CLS Outpatient FRITZ RICK DIRECTOR OF STRATEGIC INITIATIVES [facility] WOUNDCARE [id number] 03/14/2017 10:04:00 03/14/2017 23:59:59 CLS Outpatient LIU PHAM MD [facility] LABNPT E03.9 [id number] 05/24/2016 17:14:00 05/24/2016 20:33:00 DIS Emergency RANDEE EVANS DIRECTOR OF STRATEGIC INITIATIVES [facility] ER ELEV GLUCOSE [id number] 04/23/2015 14:00:00 04/29/2015 14:00:00 DIS Inpatient OLENA OLIVEIRA MD [facility] 4TH PNEUMONIA/ELEVATED TROPONIN [id number] 02/04/2013 09:01:00 02/13/2013 11:22:00 DIS Outpatient GERMANIA ROMAN [facility] REHAB RESIDUAL L SIDED WEAKNESS S/P STROKE 05/2012 [id number] 01/17/2013 20:50:00 01/18/2013 13:00:00 DIS Inpatient YANIRA CRESPO MD [facility] 4TH CHRONIC PAIN INABILITY TO CARE FOR SELF [id number] 10/15/2012 08:59:00 11/21/2012 00:01:00 DIS Outpatient YAINRA CRESPO MD [facility] REHAB CVA [id number] 09/22/2012 22:20:00 09/23/2012 00:04:00 DIS Emergency ROXANNE ESPINAL, ESTEPHANIE Hewitt [facility] ER CHEST PAIN [id number] 09/22/2012 22:26:00 09/22/2012 23:59:59 CLS Emergency [id number] 09/17/2012 10:45:00 09/21/2012 12:55:00 DIS Inpatient APRIL ESPINAL, ROCK Fitch [facility] IRF DEBILITY [id number] 09/12/2012 12:58:00 09/17/2012 10:45:00 DIS Inpatient BRANDIN ESPINAL, RAMIREZ Edwards [facility] 4TH PNEUMONIA [id number] 08/08/2018 07:45:00 ACT [facility] [id number] 04/23/2015 11:24:00 Document Registration [id number] 08/29/2012 00:03:00 Document Registration [id number] 08/14/2012 02:09:00 Document Registration [id number] 06/12/2012 08:08:00 Document Registration [id number] 05/02/2012 08:09:00 Document Registration [id number] 03/20/2012 14:49:00 Document Registration [id number] 03/29/2011 15:55:00 Document Registration
[2018-08-08] MEDS ORDERED: ONDANSETRON 4 MG/2 ML (SDV) Z0FRAN IVP PRN (10:00)
[2018-08-08] MEDS ORDERED: MEPERIDINE (DEMEROL) INJ 50 MG/ML IVP ONE (10:00)
[2018-08-08] MEDS ORDERED: fentaNYL INJECTION 100 MCG/2 ML AMP IVP ONE (10:00)
[2018-08-08] MEDS ORDERED: acetaZOLAMIDE ER 500 MG CAP (DIAMOX SEQUELS) PO ONE (10:30)
[2018-08-08 10:45] VITALS: BP 123/69
[2018-08-08 11:15] VITALS: BP 145/72
[2018-08-08 11:45] VITALS: BP 120/67
[2018-08-08 11:56] VITALS: BP 120/67
--- NOTE | 2018-08-08 13:05 | Anesthesia-General Post-Op ---
General Patient Condition Mental Status/LOC: Same as Preop Cardiovascular: Satisfactory Nausea/Vomiting: Absent Respiratory: Satisfactory Pain: Controlled Complications: Absent Post Op Complications Complications None Follow Up Care/Instructions Patient Instructions None needed. Anesthesia/Patient Condition Patient Condition Patient is doing well, no complaints, stable vital signs, no apparent adverse anesthesia problems. No complications reported per nursing. LAUREN MILLS CRNA Aug 08, 2018 13:05
== END 2018-08-08 11:56 | disposition home or self-care (01) ==
LOC: SDC 07:45
PROVIDERS: ATTEND Specialist
DX: H25.12 Age-related nuclear cataract, left eye (principal); E11.9 Type 2 diabetes mellitus without complications; I25.10 Atherosclerotic heart disease of native coronary artery without angina pectoris; E66.01 Morbid (severe) obesity due to excess calories; Z86.73 Personal history of transient ischemic attack (TIA), and cerebral infarction without residual deficits; Z95.1 Presence of aortocoronary bypass graft; Z79.82 Long term (current) use of aspirin; Z79.899 Other long term (current) drug therapy; Z79.01 Long term (current) use of anticoagulants; Z68.41 Body mass index [BMI] 40.0-44.9, adult
CPT/HCPCS: 82962

== ENCOUNTER → 2018-09-05 | Outpatient (CLI) | payer MEDICARE, MEDICAID ==
--- NOTE | 2018-09-05 13:24 | Diagnostic Imaging Report ---
INDICATION: OBSTRUCTIVE SLEEP APNEA, HYPOXEMIA REQ O2 SUPPL,NOCTURNAL HYPO, COUGH COMPARISON: 05/14/2018. FINDINGS: Frontal and lateral views of the chest demonstrate mild cardiomegaly. Pulmonary vasculature is within normal limits. Lung strickland are heavily obscured secondary to soft tissue attenuation and patient body habitus, but there is no evidence of focal consolidation, large effusion, or pneumothorax. Sternotomy wires are noted. Bony structures show no gross acute abnormalities. IMPRESSION: 1. Mild cardiomegaly, but no convincing evidence of failure or focal infiltrate. Dictated by: Dictated on workstation # [id number]
== END ==
LOC: RAD 11:55
PROVIDERS: ATTEND Nurse Practitioner Family
DX: J30.9 Allergic rhinitis, unspecified (principal); G47.33 Obstructive sleep apnea (adult) (pediatric); G47.34 Idiopathic sleep related nonobstructive alveolar hypoventilation; I51.7 Cardiomegaly
CPT/HCPCS: 71046

== ENCOUNTER → 2018-09-13 | Outpatient (CLI) | payer MEDICARE, MEDICAID ==
[~2018-09-13] MED LIST changes: +BENZ100C18 PO; +CALC1POW TOP; +DIVA500T15 PO; +POVI3780 TP; +[UNRECOGNIZED DRUG - CODE] TP
== END ==
LOC: WOUNDCARE 10:04
PROVIDERS: ATTEND Nurse Practitioner
DX: T63.301A Toxic effect of unspecified spider venom, accidental (unintentional), initial encounter (principal); L97.111 Non-pressure chronic ulcer of right thigh limited to breakdown of skin
CPT/HCPCS: 99213

== ENCOUNTER 2018-09-17 09:43 | Observation (INO) | payer MEDICARE, MEDICAID ==
[~2018-09-17] VITALS: Ht 188 cm; Wt 133.5 kg
[~2018-09-17 09:43] MED LIST changes: -BENZ100C18 PO; -CALC1POW TOP; -DIVA500T15 PO; -POVI3780 TP; -[UNRECOGNIZED DRUG - CODE] TP
[2018-09-17 10:07] LABS: BASOPHILS % (AUTO) 0 % (0-10); EOSINOPHILS # (AUTO) 0.3 10^3/uL (0.0-0.3); EOSINOPHILS % (AUTO) 3 % (0-10); HEMATOCRIT 43 % (40-54); LYMPHOCYTES # (AUTO) 3.6 X 10^3 (1.0-4.0); LYMPHOCYTES % (AUTO) 31 % (12-44); MEAN CORPUSCULAR HEMOGLOBIN 29 PG (25-34); MEAN CORPUSCULAR HGB CONC 33 G/DL (32-36); MEAN CORPUSCULAR VOLUME 89 FL (80-99); MEAN PLATELET VOLUME 11.8 FL (7.4-10.4); MONOCYTES # (AUTO) 1.5 X 10^3 (0.0-1.0); MONOCYTES % (AUTO) 13 % (0-12); NEUTROPHILS # (AUTO) 6.3 X 10^3 (1.8-7.8); NEUTROPHILS % (AUTO) 54 % (42-75); PLATELET COUNT 277 10^3/uL (130-400); WHITE BLOOD COUNT 11.8 10^3/uL (4.3-11.0)
[2018-09-17 10:10] LABS: BILIRUBIN,URINE NEGATIVE (NEGATIVE); CLARITY,URINE SLIGHTLY CLOUDY; COLOR,URINE YELLOW; GLUCOSE, URINE (UA) NEGATIVE (NEGATIVE); KETONES,URINE 1+ (NEGATIVE); LEUKOCYTE ESTERASE ,URINE 1+ (NEGATIVE); NITRITE,URINE NEGATIVE (NEGATIVE); PH,URINE 6 (5-9); PROTEIN,URINE 2+ (NEGATIVE); UROBILINOGEN,URINE 1 MG/DL (NORMAL)
--- NOTE | 2018-09-17 10:19 | ED Fall/Injury ---
General Chief Complaint: Trauma-Non Activation Stated Complaint: FALL Source: patient Exam Limitations: no limitations History of Present Illness Date Seen by Provider: September 17, 2018 Time Seen by Provider: 09:55 Initial Comments Here with report of fall from a retirement. Arrives via EMS. Apparently he was trying to get up on his own although there may have been staff in the room. He was using his pole that is installed beside his bed for assistance when he slipped and fell to the ground. He hit the left hip and right shoulder. Patient is on blood thinners. Denies loss of consciousness. He has been increasingly weak over the last several days and had visit to [facility] emergency department last Monday for that weakness and not feeling well. Apparently that workup was negative per the staff and patient. He has had increasing shortness of breath and cough and was requiring oxygen today which is not normal for him. Initial O2 sat was 88% on EMS arrival and improved to mid 90s with 2 L via nasal cannula. Denies dysuria or diarrhea. 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 Occurred: this morning (30-45 minutes ago.) Injuries/Pain Location: lower extremity Loss of Consciousness: no loss of consciousness Modifying Factors: Improves With Immobilization; Worse With Movement Associated Symptoms (Fall): No Abdominal Pain, No Chest Pain, No Confusion, No Dizziness, No Headache, No Muscle Spasms, No Nausea/Vomiting, No Neck Pain Allergies and Home Medications Allergies Coded Allergies: morphine (Verified Adverse Reaction, Intermediate, psychosis, 09/12/12) Home Medications Acetaminophen 325 Mg Tablet, 650 MG PO Q4H PRN for PAIN-MILD OR TEMPATURE, ( Reported) Apixaban 5 Mg Tablet, 5 MG PO BID, (Reported) Aspirin 81 Mg Tablet.dr, 81 MG PO DAILY, (Reported) Atorvastatin Calcium 40 Mg Tablet, 40 MG PO HS, (Reported) Buspirone HCl 5 Mg Tablet, 5 MG PO BID, (Reported) Cholecalciferol (Vitamin D3) 2,000 Unit Capsule, 2,000 UNIT PO DAILY, (Reported) Divalproex Sodium 125 Mg Cap.sprink, 125 MG PO TID, (Reported) Gabapentin 300 Mg Capsule, 600 MG PO TID, (Reported) TAKES 2 (300MG) CAPSULES Guaifenesin 100 Mg/5 Ml Liquid, 10 ML PO Q8H PRN for COUGH, (Reported) Insulin Aspart 100 Unit/1 Ml Susp, 10 UNIT SQ TIDAC, (Reported) Insulin Determir 1,000 Units/10 Ml Soln, 38 UNITS SQ BID, (Reported) Lactulose 20 Gm/30 Ml Solution, 15 ML PO Q12H PRN for CONSTIPATION-3RD LINE, ( Reported) Levothyroxine Sodium 150 Mcg Tablet, 150 MCG PO 0530, (Reported) Loperamide HCl 2 Mg Tablet, PO UD PRN for DIARRHEA, (Reported) Melatonin 3 Mg Tablet, 3 MG PO HS, (Reported) Metoprolol Tartrate 25 Mg Tablet, 25 MG PO BID, (Reported) Multivitamin with Minerals 1 Each Tablet, 1 EACH PO DAILY, (Reported) Ranitidine HCl 150 Mg Tablet, 150 MG PO HS, (Reported) Rivastigmine 1 Each Patch.td24, 9.5 MG TD 1999, (Reported) Venlafaxine HCl 75 Mg Tab, 75 MG PO BID, (Reported) Patient Home Medication List Home Medication List Reviewed: Yes Review of Systems Review of Systems Constitutional: see HPI; No chills, No fever Eyes: No Symptoms Reported Ears, Nose, Mouth, Throat: no symptoms reported Respiratory: cough, short of breath Cardiovascular: no symptoms reported Gastrointestinal: No abdominal pain, No nausea, No vomiting Genitourinary: no symptoms reported Musculoskeletal: joint pain, muscle pain; No muscle weakness, No neck pain Skin: lesions (spider bite lesions that is being followed by wound care to the right posterior thigh), other (scattered lesions to both lower extremities) Psychiatric/Neurological: See HPI, Pre-Existing Deficit All Other Systems Reviewed Negative Unless Noted: Yes Past Iclmwol-Bbsctl-Xlnmkt Hx Past Med/Social Hx: Reviewed Nursing Past Med/Soc Hx Patient Social History Alcohol Use: Denies Use Recreational Drug Use: No Smoking Status: Former Smoker Type Used: Cigarettes Recent Hopitalizations: No Immunizations Up To Date Date of Pneumonia Vaccine: Mar 15, 2012 Date of Influenza Vaccine: Jan 27, 2018 Past Medical History Surgeries: Yes ( carotid endartetectomy) CABG Respiratory: Yes Pneumonia, Sleep Apnea Currently Using CPAP: No Cardiac: Yes Coronary Artery Disease, High Cholesterol, Hypertension, Peripheral Vascular Neurological: Yes Stroke Reproductive Disorders: No (unknown) Sexually Transmitted Disease: No (unknown) HIV/AIDS: No Kidney Infection, Kidney Stones, Renal Failure Gastrointestinal: Yes Gastroesophageal Reflux, Gastrointestinal Bleed, Hiatal Hernia, Ulcer Musculoskeletal: Yes (CHRONIC LEFT SHOULDER PAIN) Arthritis Endocrine: Yes Diabetes, Insulin dep, Hypothyroidsim Cancer: No Psychosocial: Yes Sleep Difficulties, Anxiety, Depression Integumentary: Yes (CELLULITIS LEFT FOOT) Blood Disorders: No Adverse Reaction/Blood Tranf: No Family Medical History Reviewed Nursing Family Hx Cardiovascular disease 19 MOTHER Completed stroke 19 FATHER 19 MOTHER FH: emphysema Heart Disease, Diabetes Physical Exam Vital Signs Vital Signs - First Documented 09/17/18 09:44 Temp 98.5 Pulse 80 Resp 20 B/P (MAP) 125/84 (98) Pulse Ox 97 O2 Delivery Nasal Cannula O2 Flow Rate 3.00 Capillary Refill : Height, Weight, BMI Height: 5'8.00" Weight: 290lbs. 0.0oz. 131.187456gm; 36.5 BMI Method:Estimated General Appearance: WD/WN, mild distress HEENT: PERRL/EOMI, pharynx normal Neck: full range of motion, supple Cardiovascular: regular rate, rhythm, no murmur Respiratory: no accessory muscle use, wheezing, expiration, other (coarse sounding cough) Peripheral Pulses: 2+ Dorsalis Pedis (R), 2+ Left Dors-Pedis (L), 2+ Radial Pulses (R), 2+ Radial Pulses (L) Gastrointestinal: non tender, soft Back: no CVA tenderness Extremities: calf tenderness, other (left arm flaccid. Moves both lower extremities. Left hip pain noted on palpation.) Neurologic/Psychiatric: alert, oriented x 3 Skin: warm/dry, other (healing lesion to right posterior thigh that is reportedly a spider bite. Several small lesions to both lower extremities. Left lower extremity has wound care dressing over the ankle.) [place] Coma Score Best Eye Response: (4) Open Spontaneously Best Verbal Response: (5) Oriented Best Motor Response: (6) Obeys Commands Progress/Results/Core Measures Results/Orders Lab Results Laboratory Tests Test 09/17/18 09:50 09/17/18 11:42 09/17/18 12:43 Range/Units White Blood Count 11.8 H 4.3-11.0 10^3/uL Red Blood Count 4.85 4.35-5.85 10^6/uL Hemoglobin 14.0 13.3-17.7 G/DL Hematocrit 43 40-54 % Mean Corpuscular Volume 89 80-99 FL Mean Corpuscular Hemoglobin 29 25-34 PG Mean Corpuscular Hemoglobin Concent 33 32-36 G/DL Red Cell Distribution Width 15.0 H 10.0-14.5 % Platelet Count 277 130-400 10^3/uL Mean Platelet Volume 11.8 H 7.4-10.4 FL Neutrophils (%) (Auto) 54 42-75 % Lymphocytes (%) (Auto) 31 12-44 % Monocytes (%) (Auto) 13 H 0-12 % Eosinophils (%) (Auto) 3 0-10 % Basophils (%) (Auto) 0 0-10 % Neutrophils # (Auto) 6.3 1.8-7.8 X 10^3 Lymphocytes # (Auto) 3.6 1.0-4.0 X 10^3 Monocytes # (Auto) 1.5 H 0.0-1.0 X 10^3 Eosinophils # (Auto) 0.3 0.0-0.3 10^3/uL Basophils # (Auto) 0.0 0.0-0.1 10^3/uL Prothrombin Time 14.2 12.2-14.7 SEC INR Comment 1.1 0.8-1.4 Activated Partial Thromboplast Time 35 24-35 SEC Urine Color YELLOW Urine Clarity SLIGHTLY CLOUDY Urine pH 6 5-9 Urine Specific [place] 1.015 L 1.016-1.022 Urine Protein 2+ H NEGATIVE Urine Glucose (UA) NEGATIVE NEGATIVE Urine Ketones 1+ H NEGATIVE Urine Nitrite NEGATIVE NEGATIVE Urine Bilirubin NEGATIVE NEGATIVE Urine Urobilinogen 1 NORMAL MG/DL Urine Leukocyte Esterase 1+ H NEGATIVE Urine RBC (Auto) 2+ H NEGATIVE Urine RBC 2-5 H /HPF Urine WBC 0-2 /HPF Urine Squamous Epithelial Cells RARE /HPF Urine Crystals NONE /LPF Urine Bacteria TRACE /HPF Urine Casts NONE /LPF Urine Mucus SMALL H /LPF Urine Culture Indicated NO Sodium Level 140 135-145 MMOL/L Potassium Level 6.3 H 3.6-5.0 MMOL/L Chloride Level 102 98-107 MMOL/L Carbon Dioxide Level 29 21-32 MMOL/L Anion Gap 9 5-14 MMOL/L Blood Urea Nitrogen 27 H 7-18 MG/DL Creatinine 1.63 H 0.60-1.30 MG/DL Estimat Glomerular Filtration Rate 42 BUN/Creatinine Ratio 17 Glucose Level 137 H 70-105 MG/DL Calcium Level 8.4 L 8.5-10.1 MG/DL Corrected Calcium 9.0 8.5-10.1 MG/DL Total Bilirubin 0.4 0.1-1.0 MG/DL Aspartate Amino Transf (AST/SGOT) 35 H 5-34 U/L Alanine Aminotransferase (ALT/SGPT) 22 0-55 U/L Alkaline Phosphatase 97 40-136 U/L Total Protein 7.5 6.4-8.2 GM/DL Albumin 3.2 3.2-4.5 GM/DL Lactic Acid Level 2.35 *H 0.50-2.00 MMOL/L My Orders Orders - ANN ALEX MD Cbc With Automated Diff (09/17/18 09:56) Comprehensive Metabolic Panel (09/17/18 09:56) Blood Culture (09/17/18 09:56) Sputum Culture (09/17/18 09:56) Urinalysis (09/17/18 09:56) Urine Culture (09/17/18 09:56) Protime With Inr (09/17/18 09:56) Partial Thromboplastin Time (09/17/18 09:56) Chest 1 View, Ap/Pa Only (09/17/18 09:56) Ed Iv/Invasive Line Start (09/17/18 09:56) Ed Iv/Invasive Line Start (09/17/18 09:56) Vital Signs Adult Sepsis Patie Q15M (09/17/18 09:56) O2 (09/17/18 09:56) Remove Rings In Anticipation O (09/17/18 09:56) Lactic Acid Analyzer (09/17/18 09:56) Pelvis With Left Hip 2-3 Views (09/17/18 09:56) Ct Head Wo (09/17/18 09:56) Catheter(Urinary) Insert & Ass 03,15 (09/17/18 09:56) Ekg Tracing (09/17/18 10:39) Monitor-Rhythm Ecg Trace Only (09/17/18 10:39) Ed Iv/Invasive Line Start (09/17/18 10:39) Ns Iv 1000 Ml (Sodium Chloride 0.9%) (09/17/18 10:39) Albuterol/Ipra Inhalation Soln (Duoneb I (09/17/18 11:00) Svn Small Volume Nebulizer (09/17/18 10:51) Basic Metabolic Panel (09/17/18 12:33) Methylprednisolone Sod Succ (Solu-Medrol (09/17/18 12:33) Acetaminophen Tablet (Tylenol Tablet) (09/17/18 12:33) Acetaminophen Tablet (Tylenol Tablet) (09/17/18 12:33) Medications Given in ED Current Medications Medications Dose Ordered Sig/Martita Route Start Time Stop Time Status Last Admin Dose Admin Albuterol/ Ipratropium 3 ml ONCE ONCE INH 09/17/18 11:00 09/17/18 11:01 DC 09/17/18 11:02 3 ML Sodium Chloride 1,000 ml @ 0 mls/hr Q0M ONCE IV 09/17/18 10:39 09/17/18 10:41 DC 09/17/18 10:55 1,000 MLS/HR Vital Signs/I&O 09/17/18 09/17/18 09/17/18 09:44 09:44 11:03 Temp 98.5 Pulse 80 Resp 20 B/P (MAP) 125/84 (98) Pulse Ox 97 97 99 O2 Delivery Nasal Cannula Nasal Cannula Nasal Cannula O2 Flow Rate 3.00 3.00 2.00 Progress Progress Note : Progress Note Seen and evaluated. IV, labs, UA, CT head, chest x-ray ordered. Patient had a fall and he is on blood thinners so we will need CT head. We will also evaluate the labs hip and pelvis. Concerns for underlying infection due to cough and shortness of breath and requirement for oxygen. Blood cultures and lactic acid ordered. 1231: Lactic acid is elevated and so is potassium. Unsure of the source : Lactic acid although may be related to COPD exacerbation or bronchitis. Patient did get DuoNeb earlier and seems to have helped. Lactic acid drawn after fluid initiated so is concerning. He is requiring oxygen now which is not normal for him. Solu-Medrol 125 mg IV initiated. I did discuss the case with Dr. VAZQUEZ and he accepts patient for admission, observation status. We will continue Solu-Medrol and IV fluids and we will get repeat BMP now. We will keep the Hand catheter to ensure that he has good forward flow of urine. Tylenol 1 g by mouth given her Hand catheter discomfort. Patient agrees with plan. Diagnostic Imaging Diagonstic Imaging: CT Plain Films/CT/US/NM/MRI: head Comments NAME: [facility] M[facility] REC#: [id number] PT STATUS: REG ER : 1945 PHYSICIAN: ANN ALEX MD ADMIT DATE: 09/17/18/ER Signed Date of Exam: 09/17/18 CT HEAD WO PROCEDURE: CT head without contrast. TECHNIQUE: Multiple contiguous axial images were obtained through the brain without the use of intravenous contrast. Auto Exposure Controls were utilized during the CT exam to meet ALARA standards for radiation dose reduction. INDICATION: Fall with left-sided weakness. CORRELATION STUDY: 05/14/2018 FINDINGS: Encephalomalacia through the right cerebral hemisphere is again demonstrated compatible with previous infarct. Generalized right cerebral volume loss. Definitive area of decreased attenuation suggestive of new area of infarct is not suggested but could easily go undetected. Left cerebral hemisphere demonstrates generalized atrophic changes but otherwise unremarkable. Findings compatible with prior probable left basal ganglia infarct. A hyperdense MCA sign is not suggested. No intracranial hemorrhage. Basilar cisterns maintained. The bony calvarium intact. Scattered areas of mild mucosal thickening in the ethmoid air cells as well as maxillary sinuses. IMPRESSION: 1. Stable-appearing noncontrast CT imaging of the head. Findings compatible with prior sizable right hemispheric infarct present. Additional chronic changes. Subtle areas of edema could easily go undetected owing to the rather pronounced chronic changes. Followup imaging if clinically warranted. Dictated by: Dictated on workstation # [id number] Dict: 09/17/18 1047 Trans: 09/17/18 1205 Interpreted by: SAM ACOSTA DO Electronically signed by: SAM ACOSTA DO 09/17/18 1205 Diagonstic Imaging: Xray Plain Films/CT/US/NM/MRI: chest Comments [facility] [place] [place] NAME: RC MURO [facility] REC#: [id number] PT STATUS: REG ER : 1945 PHYSICIAN: ANN ALEX MD ADMIT DATE: 09/17/18/ER Draft Date of Exam:09/17/18 CHEST 1 VIEW, AP/PA ONLY INDICATION: Fall. TIME OF EXAM: 10:28 AM Comparison is made with prior chest 09/05/2018. FINDINGS: The heart is enlarged. There are changes of median sternotomy and CABG. No infiltrate or failure is seen. There is no effusion or pneumothorax. IMPRESSION: Cardiomegaly and status post CABG. No acute feature is detected. Dictated on workstation # [id number] Dict: 09/17/18 1042 Trans: 09/17/18 1047 [id number] Interpreted by: STEFFEN BRANTLEY MD Electronically signed by: Diagonstic Imaging: Xray Plain Films/CT/US/NM/MRI: pelvis, hip Comments [facility] [place] [place] NAME: RC MURO [facility] REC#: [id number] PT STATUS: REG ER : 1945 PHYSICIAN: ANN ALEX MD ADMIT DATE: 09/17/18/ER Draft Date of Exam:09/17/18 PELVIS WITH LEFT HIP 2-3 VIEWS INDICATION: Fall with left hip pain. Time of exam: 10:30 AM An AP view of the pelvis and multiple views of the left hip were obtained. Femoral acetabular alignment is normal. No definite fracture is seen. Rami are intact. SI joints and symphysis are non-widened. IMPRESSION: No acute bony abnormality is detected. Dictated on workstation # [id number] Dict: 09/17/18 1043 Trans: 09/17/18 1049 [id number] Interpreted by: STEFFEN BRANTLEY MD Electronically signed by: Focused Exam Lactate Level 09/17/18 11:42: Lactic Acid Level 2.35*H Lactic Acid Level Laboratory Tests Test 09/17/18 11:42 Lactic Acid Level 2.35 MMOL/L (0.50-2.00) *H Departure Communication (Admissions) Time/Spoke to Admitting Phy: 12:31 Impression Primary Impression: Hyperkalemia Additional Impressions: Lactic acidosis COPD with acute bronchitis Disposition: ADMITTED INPATIENT Condition: Stable Admissions Decision to Admit Reason: Admit from ER (General) Decision to Admit/Date: September 17, 2018 Time/Decision to Admit Time: 12:31 Departure-Patient Inst. Referrals: LIU LYNN MD (PCP/Family) Primary Care Physician ANN ALEX MD September 17, 2018 10:19
[2018-09-17 10:20] LABS: INR 1.1 (0.8-1.4); PROTHROMBIN TIME PATIENT 14.2 SEC (12.2-14.7)
[2018-09-17 10:23] LABS: BACTERIA,URINE TRACE /HPF; WBC,URINE 0-2 /HPF
[2018-09-17 10:24] LABS: SQUAMOUS EPITHELIAL CELL,UR RARE /HPF
[2018-09-17 10:25] LABS: ALBUMIN 3.2 GM/DL (3.2-4.5); BILIRUBIN,TOTAL 0.4 MG/DL (0.1-1.0); CALCIUM 8.4 MG/DL (8.5-10.1); CREATININE SERUM 1.63 MG/DL (0.60-1.30); POTASSIUM 6.3 MMOL/L (3.6-5.0); TOTAL PROTEIN 7.5 GM/DL (6.4-8.2)
[2018-09-17] MEDS ORDERED: NS IV 1000 ML 1,000 ML IV ONE (10:39)
--- NOTE | 2018-09-17 10:47 | Diagnostic Imaging Report ---
INDICATION: Fall. TIME OF EXAM: 10:28 AM Comparison is made with prior chest 09/05/2018. FINDINGS: The heart is enlarged. There are changes of median sternotomy and CABG. No infiltrate or failure is seen. There is no effusion or pneumothorax. IMPRESSION: Cardiomegaly and status post CABG. No acute feature is detected. Dictated by: Dictated on workstation # [id number]
--- NOTE | 2018-09-17 10:49 | Diagnostic Imaging Report ---
INDICATION: Fall with left hip pain. Time of exam: 10:30 AM An AP view of the pelvis and multiple views of the left hip were obtained. Femoral acetabular alignment is normal. No definite fracture is seen. Rami are intact. SI joints and symphysis are non-widened. IMPRESSION: No acute bony abnormality is detected. Dictated by: Dictated on workstation # [id number]
[2018-09-17] MEDS ORDERED: RT-ALBUTEROL/IPRATROPIUM 3 ML (DUONEB) VIAL INH ONE (11:00)
--- NOTE | 2018-09-17 11:06 | Diagnostic Imaging Report ---
PROCEDURE: CT head without contrast. TECHNIQUE: Multiple contiguous axial images were obtained through the brain without the use of intravenous contrast. Auto Exposure Controls were utilized during the CT exam to meet ALARA standards for radiation dose reduction. INDICATION: Fall with left-sided weakness. CORRELATION STUDY: 05/14/2018 FINDINGS: Encephalomalacia through the right cerebral hemisphere is again demonstrated compatible with previous infarct. Generalized right cerebral volume loss. Definitive area of decreased attenuation suggestive of new area of infarct is not suggested but could easily go undetected. Left cerebral hemisphere demonstrates generalized atrophic changes but otherwise unremarkable. Findings compatible with prior probable left basal ganglia infarct. A hyperdense MCA sign is not suggested. No intracranial hemorrhage. Basilar cisterns maintained. The bony calvarium intact. Scattered areas of mild mucosal thickening in the ethmoid air cells as well as maxillary sinuses. IMPRESSION: 1. Stable-appearing noncontrast CT imaging of the head. Findings compatible with prior sizable right hemispheric infarct present. Additional chronic changes. Subtle areas of edema could easily go undetected owing to the rather pronounced chronic changes. Followup imaging if clinically warranted. Dictated by: Dictated on workstation # [id number]
[2018-09-17] MEDS ORDERED: ACETAMINOPHEN 500 MG TAB (TYLENOL) ONE (12:33)
[2018-09-17] MEDS ORDERED: methylPREDNISolone 125 MG (Solu-MEDROL) VIAL IV STA (12:33)
[2018-09-17] MEDS ORDERED: ACETAMINOPHEN 500 MG TAB (TYLENOL) PO STA (12:33)
[2018-09-17 13:12] LABS: CALCIUM 8.4 MG/DL (8.5-10.1); CREATININE SERUM 1.63 MG/DL (0.60-1.30); POTASSIUM 4.9 MMOL/L (3.6-5.0)
--- OUTSIDE RECORDS SUMMARY | 2018-09-17 13:21 | XMS REPORT ---
Author Author Migration, Doctor Organization [facility] Address Unknown Phone Unavailable Care Team Providers Care Director Of Federal Sales Name Role Phone Migration, Doctor Unavailable Unavailable PROBLEMS Type Condition ICD9-CM Code [id number] Code Onset Dates Condition Status SNOMED Code Problem Nausea with vomiting 787.01 Active 41244467 Problem Diarrhea 787.91 Active 21713397 Problem Pain in joint, shoulder region 719.41 Active 592197766 Problem Pain in joint, lower leg 719.46 Active 071065795 Problem Unspecified local infection of skin and subcutaneous tissue 686.9 Active 817527701 Problem Unspecified disorder of skin and subcutaneous tissue 709.9 Active 30603467 Problem 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 556331265 Problem Unspecified episodic mood disorder 296.90 Active 850443846 Problem Vascular dementia, uncomplicated 290.40 Active 00520267 Problem Major depressive disorder, recurrent, unspecified F33.9 Active 75788645 Problem 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 Active 679467407 Problem Vascular dementia with behavioral disturbance F01.51 Active 518584836867961 Problem Unspecified hypotension 458.9 Active 95026522 Problem Other and unspecified hyperlipidemia 272.4 Active 71799838 Problem Diabetes mellitus without mention of complication, type II or unspecified type, not stated as uncontrolled 250.00 Active 435204987 Problem 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 Active 62547031 Problem Unspecified mood [affective] disorder F39 Active 53320316 ALLERGIES No Information ENCOUNTERS Encounter Location Date Diagnosis [facility], [place] [address] [facility] [id number] [address] September, [facility], [place] [address] [facility] [id number] [address] Aug, [facility], [place] [address] [facility] [id number] [address] Feb, Major depressive disorder, recurrent, unspecified F33.9 and Vascular dementia with behavioral disturbance F01.51 [facility], [place] [address], [place] [address] Dec, Major depressive disorder, recurrent, unspecified F33.9 [facility], [place] [id number] [place] [address] 47892- 5336 Oct, Unspecified mood [affective] disorder F39 [facility], [place] [id number] [place] [address] 58299- 9235 September, Major depressive disorder, recurrent, unspecified F33.[address] [facility] [id number] [place] [address] [id number] May, [facility], [place] [id number] [place] [address] 87289- 4828 May, Major depressive disorder, recurrent, unspecified F33.9 [facility], [place] [id number] [place] [address] 10335- 3334 Feb, Major depressive disorder, recurrent, unspecified F33.9 [facility], [place] [address], [place] [address] Jan, Major depressive disorder, recurrent, unspecified F33.9 [facility], [place] [id number] [place] [address] 68344- 6021 Jan, Major depressive disorder, recurrent, unspecified F33.9 [facility], [place] [address] [place] [address] 84734- 6101 Jan, Major depressive disorder, recurrent, unspecified F33.9 [facility], [place] [address], [place] [address] 5205 Dec, Major depressive disorder, recurrent, unspecified F33.9 [facility], [place] [address] [id number], [place] [address] 7573 Nov, Major depressive disorder, recurrent, unspecified F33.9 [facility], [place] [id number] [place] [address] 51130- 2900 Nov, 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 [facility], [place] [id number] [place] [address] 51890- 0577 08 Oct, 2016 Unspecified mood [affective] disorder F39 ; Major depressive disorder, recurrent, unspecified F33.9 and Vascular dementia with behavioral disturbance F01.51 [facility], [place] [id number] [place] [address] 14805- 7366 May, 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 [facility], [place] [id number] [place] [address] 81835- 7730 14 Aug, 2014 [facility], [place] [address] [address]- 6077 Aug, [facility], [place] [id number] [place] [address] 20225- 3786 15 Feb, 2013 [facility], [place] [id number] [place] [address] 34860- 0423 Feb, [facility], [place] [id number] [place] [address] 39384- 4018 Feb, [facility], [place] [id number] [place] [address] 66453- 0987 Feb, [facility], [place] [id number] [place] [address] 48006- 3775 23 Jan, 2013 [facility], [place] [id number] [place] [address] 02897- 0387 20 Jan, 2012 [facility], [place] [id number] [place] [address] 31973- 0677 18 Sep2012 [facility], [place] [id number] [place] [address] 87403- 9792 10 Jan, 2012 [facility], [place] [id number] [place] [address] 49305- 2561 09 Jan, 2012 [facility], [place] [id number] [place] [address] 13375- 3148 06 Jan, 2012 [facility] [place] [facility] [address] [id number] [place] [address]- 6968 06 Jan, 2012 [facility] [place] [facility] [address] [id number] [place] [address]- 5631 05 Jan, 2013 [facility] [place] [facility] [address] [id number] [place] [address]- 1883 Jan, [facility] [place] [facility] [address] [id number] [place] [address]- 4387 Dec, [facility] [place] [facility] [address] [id number] [place] [address]- 8073 Nov, [facility] [place] [facility] [address] [id number] [place] [address]- 8094 Nov, [facility] [place] [facility] [address] [id number] [place] [address]- 2922 Nov, [facility] [place] [facility] [address] [id number] [place] [address]- 5518 Nov, [facility] [place] [facility] [address] [id number] [place] [address]- 8309 Nov, [facility] [place] [facility] [address] [id number] [place] [address]- 8249 Oct, [facility] [place] [facility] [address] [id number], [place] [address]- 9643 Oct, [facility] [place] [facility] [address] [id number], [place] [address]- 7531 Oct, [facility] [place] [facility] [address] [id number] [place] [address]- 6647 Oct, [facility] [place] [facility] [address] [id number] [place] [address]- 0063 Oct, [facility] [place] [facility] [address] [id number] [place] [address]- 5716 September, [facility] [place] [facility] [address] [id number] [place] [address]- 8171 07 Sep, 2012 [facility] [address] [id number] [place] [address]- 0856 30 Aug, 2012 [facility] [address] [id number] [place] [address]- 0486 15 Aug, 2012 [facility] [address] [id number] [place] [address]- 8729 02 Aug, 2012 [facility] [address] [id number] [place] [address]- 8009 28 Jul, 2012 [facility] [address] [id number] [place] [address]- 7274 25 Jul, 2012 [facility] [address] [id number] [place] [address]- 2904 22 Jul, 2012 [facility] [address] [id number] [place] [address]- 0844 21 Jul, 2012 [facility] [address] [id number] [place] [address]- 0455 20 Jul, 2012 [facility] [address] [id number] [place] [address]- 1199 19 Jul, 2012 [facility] [address] [id number] [place] [address]- 5459 19 Jul, 2012 [facility] [address] [id number] [place] [address]- 3780 18 Jul, 2012 [facility] [address] [id number] [place] [address]- 5805 14 Jul, 2012 [facility] [address] [id number] [place] [address]- 6250 18 Jun, 2012 [facility] [address] [id number] [place] [address]- 7786 08 Jun, 2012 [facility] [address] [id number] [place] [address]- 5071 06 Jun, 2012 [facility] [address] [id number] [place] [address]- 9990 31 May, 2012 [facility] [place] [facility] [address] [id number] [place] [address]- 6962 30 May, 2012 [facility] [place] [facility] [address] [id number] [place] [address]- 7506 29 May, 2012 [facility] [place] [facility] [address] [id number] [place] [address]- 4140 28 May, 2012 [facility] [place] [facility] [address] [id number] [place] [address]- 2121 31 Apr, 2012 [facility] [place] [facility] [address] [id number] [place] [address]- 9207 31 Apr, 2012 [facility] [place] [facility] [address] [id number] [place] [address]- 8368 18 Apr, 2012 [facility] [place] [facility] [address] [id number] [place] [address]- 7048 18 Apr, 2012 [facility] [place] [facility] [address] [id number] [place] [address]- 3831 17 Apr, 2012 [facility] [place] [facility] [address] [id number] [place] [address]- 9737 17 Apr, 2012 [facility] [place] [facility] [address] [id number] [place] [address]- 9403 14 Apr, 2012 [facility] [place] [facility] [address] [id number] [place] [address]- 2657 14 Apr, 2012 [facility] [place] [facility] [address] [id number] [place] [address]- 5011 14 Apr, 2012 [facility] [place] [facility] [address] [id number] [place] [address]- 3445 14 Apr, 2012 [facility] [place] [facility] [address] [id number] [place] 8427 10 Apr, 2012 [facility] [place] [facility] [address] [id number] [place] [address]- 5868 Apr, [facility] [place] [facility] [address] [id number] [place] [address]- 9001 Apr, [facility] [place] [facility] [address] [id number] [place] [address]- 4536 Apr, [facility] [place] [facility] [address] [id number] [place] [address]- 8486 Apr, [facility] [place] [facility] [address] [id number] [place] [address]- 7421 Apr, [facility] [place] [facility] [address] [id number] [place] [address]- 5788 Apr, [facility] [place] [facility] [address] [id number] [place] [address]- 6199 Apr, [facility] [place] [facility] [address] [id number] [place] [address]- 9988 Apr, [facility] [place] [facility] [address] [id number] [place] [address]- 5765 Mar, [facility] [place] [facility] [address] [id number] [place] [address]- 3344 Mar, [facility] [place] [facility] [address] [facility] [id number] [place] [address]- 2947 Mar, [facility] [place] [facility] [address] [id number] [place] [address]- 6628 Mar, [facility] [place] [facility] [address] [id number] [place] [address]- 1031 Mar, [facility] [place] [facility] [address] [id number] [place] [address]- 8186 Mar, [facility] [place] [facility] [address] [id number] [place] [address]- 4056 Mar, [facility] [place] [facility] [id number] [address]- 6958 Mar, [facility] [place] [facility] [address] [id number] [place] [address]- 0623 Mar, [facility] [place] [facility] [address] [id number] [place] [address]- 6280 Mar, [facility] [place] [facility] [address] [id number] [place] [address]- 2486 Mar, [facility] [place] [facility] [address] [id number] [place] [address]- 6375 Mar, [facility] [place] [facility] [address] [id number] [place] [address]- 0821 Mar, [facility] [place] [facility] [address] [id number] [place] [address]- 8255 Feb, [facility] [place] [facility] [address] [id number] [place] 8078 Feb, [facility] [place] [facility] [address] [id number] [place] [address]- 0645 Feb, [facility] [place] [facility] [address] [id number] [place] [address]- 6708 Feb, [facility] [place] [facility] [address] [id number] [place] [address]- 6741 Feb, [facility] [place] [facility] [address] [facility] [id number] [place] [address]- 0298 Feb, [facility] [place] [facility] [address] [id number] [place] [address]- 2129 Feb, [facility] [place] [facility] [address] [id number] [place] [address]- 5948 Feb, [facility] [place] [facility] [address] [id number] [place] [address]- 3796 Feb, [facility] [place] [facility] [address] [id number] [place] [address]- 3314 Feb, [facility] [place] [facility] [address] [id number] [place] [address]- 5024 Jan, [facility] [place] [facility] [address] [id number] [place] [address]- 8568 Dec, [facility] [place] [facility] [address] [id number] [place] [address]- 8558 Dec, [facility] [place] [facility] [address] [id number] [place] [address]- 0150 Nov, [facility] [place] [facility] [address] [id number] [place] [address]- 1532 Nov, [facility] [place] [facility] [address] [id number] [place] [address]- 8618 Nov, [facility] [place] [facility] [address] [id number] [place] [address]- 6737 Nov, [facility] [place] [facility] [address] [id number] [place] [address]- 0243 Oct, [facility] [place] [facility] [address] [id number] [place] [address]- 4347 Oct, [facility] [place] [facility] [address] [id number] [place] [address]- 6401 Oct, [facility] [place] [facility] [address] [id number] [place] [address]- 7911 Oct, [facility] [place] [facility] [address] [id number] [place] [address]- 2133 September, [facility] [place] [facility] [address] [id number] [place] [address]- 7110 September, [facility] [place] [facility] [address] [id number] [place] [address]- 2474 Aug, [facility] [place] [facility] [address] [id number] [place] [address]- 2231 Aug, [facility] [place] [facility] [address] [id number] [place] [address]- 3334 Aug, [facility] [place] [facility] [address] [place] [address]- 3980 30 Jul, 2011 [facility] [place] [address], [place] [address]- 9535 Jul, [facility], [place] [address], [place] [address]- 5431 15 Jun, 2011 [facility], [place] [address], [place] [address]- 6788 Jun, [facility], [place] [id number] [place] [address] 62785- 4297 Jun, [facility], [place] [id number] [place] [address] 10998- 2699 Apr, [facility], [place] [address], [place] [address]- 8615 Apr, [facility], [place] [id number] [place] [address] 90272- 3159 Mar, [facility], [place] [address], [place] [address]- 6680 Mar, [facility], [place] [address], [place] [address]- 5140 Feb, [facility], [place] [address], [place] [address]- 3163 Dec, [facility], [place] [address], [place] [address]- 7932 Nov, IMMUNIZATIONS No Known Immunizations SOCIAL HISTORY Never Assessed REASON FOR VISIT EMR-[facility] PLAN OF CARE VITAL SIGNS MEDICATIONS Unknown [...]
--- OUTSIDE RECORDS SUMMARY | 2018-09-17 13:21 | XMS REPORT ---
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 Name Role Phone Migration, Doctor Unavailable Unavailable PROBLEMS Type Condition ICD9-CM Code JCL37-AM Code Onset Dates Condition Status SNOMED Code Problem Nausea with vomiting 787.01 Active 33725690 Problem Diarrhea 787.91 Active 02389739 Problem Pain in joint, shoulder region 719.41 Active 984048875 Problem Pain in joint, lower leg 719.46 Active 197148273 Problem Unspecified local infection of skin and subcutaneous tissue 686.9 Active 735521243 Problem Unspecified disorder of skin and subcutaneous tissue 709.9 Active 05135213 Problem 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 973947160 Problem Unspecified episodic mood disorder 296.90 Active 171907803 Problem Vascular dementia, uncomplicated 290.40 Active 62002679 Problem Major depressive disorder, recurrent, unspecified F33.9 Active 18979990 Problem 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 Active 939400029 Problem Vascular dementia with behavioral disturbance F01.51 Active [id number] Problem Unspecified hypotension 458.9 Active 04829560 Problem Other and unspecified hyperlipidemia 272.4 Active 80105954 Problem Diabetes mellitus without mention of complication, type II or unspecified type, not stated as uncontrolled 250.00 Active 495174126 Problem 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 Active 83954258 Problem Unspecified mood [affective] disorder F39 Active 89383774 ALLERGIES No Information ENCOUNTERS Encounter Location Date Diagnosis [facility] [address] [facility] [id number] [address] [address] September, [facility] [address] [facility] [id number][place] [address] [address] Aug, [facility] [address] [facility] [id number][place] [address] [address] Feb, Major depressive disorder, recurrent, unspecified F33.9 and Vascular dementia with behavioral disturbance F01.51 [facility] [address] [address] Dec, Major depressive disorder, recurrent, unspecified F33.9 [facility] [id number] [place] [address] 33780- 6803 Oct, Unspecified mood [affective] disorder F39 [facility] [id number] [place] [address] 54557- 6023 September, Major depressive disorder, recurrent, unspecified F33.9 [facility] [id number] [place] [address] [id number] May, [facility] [id number] [place] [address] 54431- 8317 May, Major depressive disorder, recurrent, unspecified F33.9 [facility] [id number] [place] [address] 37646- 6478 Feb, Major depressive disorder, recurrent, unspecified F33.9 [facility] [address] [address] Jan, Major depressive disorder, recurrent, unspecified F33.9 [facility] [address] [place] [address] 26068- 9873 Jan, Major depressive disorder, recurrent, unspecified F33.9 [facility] [address] [place] [address] 13138- 9757 Jan, Major depressive disorder, recurrent, unspecified F33.9 [facility] [address] [address] Dec, Major depressive disorder, recurrent, unspecified F33.9 [facility] [address] [id number], [place] [address] 2380 Nov, Major depressive disorder, recurrent, unspecified F33.9 [facility] [address] [place] [address] 13714- 1804 Nov, 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 [facility] [id number] [place] [address] 61942- 2202 08 Oct, 2016 Unspecified mood [affective] disorder F39 ; Major depressive disorder, recurrent, unspecified F33.9 and Vascular dementia with behavioral disturbance F01.51 [facility] [id number] [place] [address] 88972- 0976 May, 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 [facility] [id number] [place] [address] 74399- 9538 14 Aug, 2014 [facility] [address] [address] Aug, [facility] [id number] [place] [address] 13941- 0093 15 Feb, 2013 [facility] [id number] [place] [address] 39850- 9284 Feb, [facility] [id number] [place] [address] 74357- 7143 Feb, [facility] [id number] [place] [address] 02681- 2971 Feb, [facility] [id number] [place] [address] 09888- 6105 23 Jan, 2013 [facility] [id number] [place] [address] 85251- 8931 20 Jan, 2012 [facility] [id number] [place] [address] 01118- 2161 18 Sep2012 [facility] [id number] [place] [address] 72975- 0004 10 Jan, 2012 [facility] [id number] [place] [address] 75915- 5910 09 Jan, 2012 [facility] [id number] [place] [address] 35402- 5510 06 Jan, 2012 [facility] [place] [facility] [address] [id number] [place] [address]- 0817 06 Jan, 2012 [facility] [place] [facility] [address] [id number] [place] [address]- 0097 05 Jan, 2013 [facility] [place] [facility] [address] [id number] [place] [address]- 1036 Jan, [facility] [place] [facility] [address] [id number] [place] [address]- 6776 Dec, [facility] [place] [facility] [address] [id number] [place] [address]- 3236 Nov, [facility] [place] [facility] [address] [id number] [place] [address]- 0101 Nov, [facility] [place] [facility] [address] [id number] [place] [address]- 0893 Nov, [facility] [place] [facility] [address] [id number] [place] [address]- 3744 Nov, [facility] [place] [facility] [address] [id number] [place] [address]- 4139 Nov, [facility] [place] [facility] [address] [id number] [place] [address]- 8211 Oct, [facility] [place] [facility] [address] [id number], [place] [address] 3005 Oct, [facility] [place] [facility] [address] [id number], [place] [address]- 7460 Oct, [facility] [place] [facility] [address] [id number] [place] [address]- 0575 Oct, [facility] [place] [facility] [address] [id number] [place] [address]- 3970 Oct, [facility] [place] [facility] [address] [id number] [place] [address]- 9079 September, [facility] [place] [facility] [address] [id number] [place] [address]- 4729 07 Sep, 2012 [facility] [address] [id number] [place] [address]- 1648 30 Aug, 2012 [facility] [address] [id number] [place] [address]- 3666 15 Aug, 2012 [facility] [address] [id number] [place] [address]- 5721 02 Aug, 2012 [facility] [address] [id number] [place] [address]- 9656 28 Jul, 2012 [facility] [address] [id number] [place] [address]- 0269 25 Jul, 2012 [facility] [address] [id number] [place] [address]- 2754 22 Jul, 2012 [facility] [address] [id number] [place] [address]- 0792 21 Jul, 2012 [facility] [address] [id number] [place] [address]- 6843 20 Jul, 2012 [facility] [address] [id number] [place] [address]- 7259 19 Jul, 2012 [facility] [address] [id number] [place] [address]- 7620 19 Jul, 2012 [facility] [address] [id number] [place] [address]- 8902 18 Jul, 2012 [facility] [address] [id number] [place] [address]- 7642 14 Jul, 2012 [facility] [address] [id number] [place] [address]- 4721 18 Jun, 2012 [facility] [address] [id number] [place] [address]- 7476 08 Jun, 2012 [facility] [address] [id number] [place] [address]- 6776 06 Jun, 2012 [facility] [address] [id number] [place] [address]- 2550 31 May, 2012 [facility] [place] [facility] [address] [id number] [place] [address]- 0728 30 May, 2012 [facility] [place] [facility] [address] [id number] [place] [address]- 5399 29 May, 2012 [facility] [place] [facility] [address] [id number] [place] [address]- 3326 28 May, 2012 [facility] [place] [facility] [address] [id number] [place] [address]- 5717 31 Apr, 2012 [facility] [place] [facility] [address] [id number] [place] [address]- 7440 31 Apr, 2012 [facility] [place] [facility] [address] [id number] [place] [address]- 0884 18 Apr, 2012 [facility] [place] [facility] [address] [id number] [place] [address]- 6222 18 Apr, 2012 [facility] [place] [facility] [address] [id number] [place] [address]- 1900 17 Apr, 2012 [facility] [place] [facility] [address] [id number] [place] [address]- 8081 17 Apr, 2012 [facility] [place] [facility] [address] [id number] [place] [address]- 5976 14 Apr, 2012 [facility] [place] [facility] [address] [id number] [place] [address]- 5251 14 Apr, 2012 [facility] [place] [facility] [address] [id number] [place] [address]- 9090 14 Apr, 2012 [facility] [place] [facility] [address] [id number] [place] [address]- 6007 14 Apr, 2012 [facility] [place] [facility] [address] [id number] [place] 2556 10 Apr, 2012 [facility] [place] [facility] [address] [id number] [place] [address]- 1811 Apr, [facility] [place] [facility] [address] [id number] [place] [address]- 2474 Apr, [facility] [place] [facility] [address] [id number] [place] [address]- 5496 Apr, [facility] [place] [facility] [address] [id number] [place] [address]- 3586 Apr, [facility] [place] [facility] [address] [id number] [place] [address]- 5597 Apr, [facility] [place] [facility] [address] [id number] [place] [address]- 9711 Apr, [facility] [place] [facility] [address] [id number] [place] [address]- 4898 Apr, [facility] [place] [facility] [address] [id number] [place] [address]- 8561 Apr, [facility] [place] [facility] [address] [id number] [place] [address]- 6826 Mar, [facility] [place] [facility] [address] [id number] [place] [address]- 9357 Mar, [facility] [place] [facility] [address] [facility] [id number] [place] [address]- 6408 Mar, [facility] [place] [facility] [address] [id number] [place] [address]- 9621 Mar, [facility] [place] [facility] [address] [id number] [place] [address]- 1873 Mar, [facility] [place] [facility] [address] [id number] [place] [address]- 3850 Mar, [facility] [place] [facility] [address] [id number] [place] [address]- 7894 Mar, [facility] [place] [facility] [id number] [address]- 8926 Mar, [facility] [place] [facility] [address] [id number] [place] [address]- 9267 Mar, [facility] [place] [facility] [address] [id number] [place] [address]- 2785 Mar, [facility] [place] [facility] [address] [id number] [place] [address]- 7816 Mar, [facility] [place] [facility] [address] [id number] [place] [address]- 2065 Mar, [facility] [place] [facility] [address] [id number] [place] [address]- 5009 Mar, [facility] [place] [facility] [address] [id number] [place] [address]- 3256 Feb, [facility] [place] [facility] [address] [id number] [place] 5302 Feb, [facility] [place] [facility] [address] [id number] [place] [address]- 0464 Feb, [facility] [place] [facility] [address] [id number] [place] [address]- 1430 Feb, [facility] [place] [facility] [address] [id number] [place] [address]- 9291 Feb, [facility] [place] [facility] [address] [facility] [id number] [place] [address]- 5011 Feb, [facility] [place] [facility] [address] [id number] [place] [address]- 9846 Feb, [facility] [place] [facility] [address] [id number] [place] [address]- 2970 Feb, [facility] [place] [facility] [address] [id number] [place] [address]- 9616 Feb, [facility] [place] [facility] [address] [id number] [place] [address]- 3651 Feb, [facility] [place] [facility] [address] [id number] [place] [address]- 3911 Jan, [facility] [place] [facility] [address] [id number] [place] [address]- 4933 Dec, [facility] [place] [facility] [address] [id number] [place] [address]- 7182 Dec, [facility] [place] [facility] [address] [id number] [place] [address]- 4763 Nov, [facility] [place] [facility] [address] [id number] [place] [address]- 7319 Nov, [facility] [place] [facility] [address] [id number] [place] [address]- 0858 Nov, [facility] [place] [facility] [address] [id number] [place] [address]- 5703 Nov, [facility] [place] [facility] [address] [id number] [place] [address]- 4544 Oct, [facility] [place] [facility] [address] [id number] [place] [address]- 2581 Oct, [facility] [place] [facility] [address] [id number] [place] [address]- 6674 Oct, [facility] [place] [facility] [address] [id number] [place] [address]- 4406 Oct, [facility] [place] [facility] [address] [id number] [place] [address]- 8525 September, [facility] [place] [facility] [address] [id number] [place] [address]- 0044 September, [facility] [place] [facility] [address] [id number] [place] [address]- 7566 Aug, [facility] [place] [facility] [address] [id number] [place] [address]- 3125 Aug, [facility] [place] [facility] [address] [id number] [place] [address]- 6334 Aug, [facility] [place] [facility] [address] [place] [address]- 7983 30 Jul, 2011 [facility] [address] [place] [address]- 8841 Jul, [facility] [address], [place] [address]- 1238 15 Jun, 2011 [facility] [address] [place] [address]- 2530 Jun, [facility] [address] [place] [address] 11687- 8113 Jun, [facility] [address] [place] [address] 32372- 1436 Apr, [facility] [address], [place] [address]- 5865 Apr, [facility] [address] [place] [address] 37261- 2148 Mar, [facility] [address], [place] [address]- 4433 Mar, [facility] [address] [address]- 0256 Feb, [facility] [address], [place] [address]- 5267 Dec, [facility] [address] [place] [address]- 3758 Nov, IMMUNIZATIONS No Known Immunizations SOCIAL HISTORY Never Assessed REASON FOR VISIT EMR-[facility] [place] PLAN OF CARE VITAL SIGNS MEDICATIONS Unknown [...]
--- OUTSIDE RECORDS SUMMARY | 2018-09-17 13:22 | XMS REPORT ---
Author Author Migration, Doctor Organization [facility] [place] [facility] Address Unknown Phone Unavailable Care Team Providers Care Automation Engineering Manager Name Role Phone Migration, Doctor Unavailable Unavailable PROBLEMS Type Condition ICD9-CM Code GNP90-RK Code Onset Dates Condition Status SNOMED Code Problem Nausea with vomiting 787.01 Active 17309785 Problem Diarrhea 787.91 Active 72349795 Problem Pain in joint, shoulder region 719.41 Active 359794904 Problem Pain in joint, lower leg 719.46 Active 322887651 Problem Unspecified local infection of skin and subcutaneous tissue 686.9 Active 895773005 Problem Unspecified disorder of skin and subcutaneous tissue 709.9 Active 66351830 Problem 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 456224860 Problem Unspecified episodic mood disorder 296.90 Active 357908628 Problem Vascular dementia, uncomplicated 290.40 Active 05569464 Problem Major depressive disorder, recurrent, unspecified F33.9 Active 38629483 Problem 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 Active 998006414 Problem Vascular dementia with behavioral disturbance F01.51 Active [id number] Problem Unspecified hypotension 458.9 Active 56902933 Problem Other and unspecified hyperlipidemia 272.4 Active 27355214 Problem Diabetes mellitus without mention of complication, type II or unspecified type, not stated as uncontrolled 250.00 Active 507726671 Problem 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 [id number] [address] September, [facility] [address] [facility] [id number] [address] Aug, [facility] [address] [facility] [id number] [address] Feb, Major depressive disorder, recurrent, unspecified F33.9 and Vascular dementia with behavioral disturbance F01.51 [facility] [address] [address] Dec, Major depressive disorder, recurrent, unspecified F33.9 [facility] [id number] [place] [address]- 8259 Oct, Unspecified mood [affective] disorder F39 [facility] [id number] [place] [address] 70868- 2900 September, Major depressive disorder, recurrent, unspecified F33.9 [facility] [id number] [place] [address] [id number] May, [facility] [id number] [place] [address] 17506- 8422 May, Major depressive disorder, recurrent, unspecified F33.9 [facility] [id number] [place] [address] 93436- 2557 Feb, Major depressive disorder, recurrent, unspecified F33.9 [facility] [address] [address] 7[address] Jan, Major depressive disorder, recurrent, unspecified F33.9 [facility] [address] [place] [address] 50793- 4211 Jan, Major depressive disorder, recurrent, unspecified F33.9 [facility] [address] [place] [address] 25231- 7581 Jan, Major depressive disorder, recurrent, unspecified F33.9 [facility] [address] [address] 5698 Dec, Major depressive disorder, recurrent, unspecified F33.9 [facility] [address] [id number] [address] 8268 Nov, Major depressive disorder, recurrent, unspecified F33.9 [facility] [address] [place] [address] 76566- 4195 Nov, 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 [facility] [id number] [place] [address] 32533- 1013 08 Oct, 2016 Unspecified mood [affective] disorder F39 ; Major depressive disorder, recurrent, unspecified F33.9 and Vascular dementia with behavioral disturbance F01.51 [facility] [id number] [place] [address] 78812- 0848 May, 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 [facility] [id number] [place] [address] 60125- 0749 14 Aug, 2014 [facility] [address] [address]- [address]6 Aug, [facility] [id number] [place] [address] 04974- 6248 15 Feb, 2013 [facility] [id number] [place] [address] 38245- 2400 Feb, [facility] [id number] [place] [address] 84714- 9607 Feb, [facility] [id number] [place] [address] 05980- 0177 Feb, [facility] [id number] [place] [address] 78380- 9027 23 Jan, 2013 [facility] [id number] [place] [address] 02527- 2970 20 Jan, 2012 [facility] [id number] [place] [address] 17398- 6512 18 Sep2012 [facility] [id number] [place] [address] 03780- 9401 10 Jan, 2012 [facility] [id number] [place] [address] 25608- 8203 09 Jan, 2012 [facility] [id number] [place] [address] 58698- 3309 06 Jan, 2012 [facility] [place] [facility] [address] [id number] [place] [address]- 3853 06 Jan, 2012 [facility] [place] [facility] [address] [id number] [place] [address]- 4243 05 Jan, 2013 [facility] [place] [facility] [address] [id number] [place] [address]- 3335 Jan, [facility] [place] [facility] [address] [id number] [place] [address]- 1527 Dec, [facility] [place] [facility] [address] [id number] [place] [address]- 1647 Nov, [facility] [place] [facility] [address] [id number] [place] [address]- 1408 Nov, [facility] [place] [facility] [address] [id number] [place] [address]- 5661 Nov, [facility] [place] [facility] [address] [id number] [place] [address]- 1646 Nov, [facility] [place] [facility] [address] [id number] [place] [address]- 5361 Nov, [facility] [place] [facility] [address] [id number] [place] [address]- 0555 Oct, [facility] [place] [facility] [address] [id number], [place] [address]- 1304 Oct, [facility] [place] [facility] [address] [id number], [place] [address]- 9230 Oct, [facility] [place] [facility] [address] [id number] [place] [address]- 6720 Oct, [facility] [place] [facility] [address] [id number] [place] [address]- 1832 Oct, [facility] [place] [facility] [address] [id number] [place] [address]- 6660 September, [facility] [place] [facility] [address] [id number] [place] [address]- 3169 07 Sep, 2012 [facility] [address] [id number] [place] [address]- 2446 30 Aug, 2012 [facility] [address] [id number] [place] [address]- 9856 15 Aug, 2012 [facility] [address] [id number] [place] [address]- 8228 02 Aug, 2012 [facility] [address] [id number] [place] [address]- 8701 28 Jul, 2012 [facility] [address] [id number] [place] [address]- 0753 25 Jul, 2012 [facility] [address] [id number] [place] [address]- 3772 22 Jul, 2012 [facility] [address] [id number] [place] [address]- 7426 21 Jul, 2012 [facility] [address] [id number] [place] [address]- 3596 20 Jul, 2012 [facility] [address] [id number] [place] [address]- 4804 19 Jul, 2012 [facility] [address] [id number] [place] [address]- 0750 19 Jul, 2012 [facility] [address] [id number] [place] [address]- 8226 18 Jul, 2012 [facility] [address] [id number] [place] [address]- 7618 14 Jul, 2012 [facility] [address] [id number] [place] [address]- 0610 18 Jun, 2012 [facility] [address] [id number] [place] [address]- 3776 08 Jun, 2012 [facility] [address] [id number] [place] [address]- 2888 06 Jun, 2012 [facility] [address] [id number] [place] [address]- 2498 31 May, 2012 [facility] [place] [facility] [address] [id number] [place] [address]- 2801 30 May, 2012 [facility] [place] [facility] [address] [id number] [place] [address]- 0891 29 May, 2012 [facility] [place] [facility] [address] [id number] [place] [address]- 5956 28 May, 2012 [facility] [place] [facility] [address] [id number] [place] [address]- 6349 31 Apr, 2012 [facility] [place] [facility] [address] [id number] [place] [address]- 2448 31 Apr, 2012 [facility] [place] [facility] [address] [id number] [place] [address]- 2001 18 Apr, 2012 [facility] [place] [facility] [address] [id number] [place] [address]- 0149 18 Apr, 2012 [facility] [place] [facility] [address] [id number] [place] [address]- 2818 17 Apr, 2012 [facility] [place] [facility] [address] [id number] [place] [address]- 7164 17 Apr, 2012 [facility] [place] [facility] [address] [id number] [place] [address]- 2841 14 Apr, 2012 [facility] [place] [facility] [address] [id number] [place] [address]- 1235 14 Apr, 2012 [facility] [place] [facility] [address] [id number] [place] [address]- 8804 14 Apr, 2012 [facility] [place] [facility] [address] [id number] [place] [address]- 7791 14 Apr, 2012 [facility] [place] [facility] [address] [id number] [place] 1835 10 Apr, 2012 [facility] [place] [facility] [address] [id number] [place] [address]- 9961 Apr, [facility] [place] [facility] [address] [id number] [place] [address]- 5286 Apr, [facility] [place] [facility] [address] [id number] [place] [address]- 2956 Apr, [facility] [place] [facility] [address] [id number] [place] [address]- 3716 Apr, [facility] [place] [facility] [address] [id number] [place] [address]- 4627 Apr, [facility] [place] [facility] [address] [id number] [place] [address]- 1206 Apr, [facility] [place] [facility] [address] [id number] [place] [address]- 2880 Apr, [facility] [place] [facility] [address] [id number] [place] [address]- 6005 Apr, [facility] [place] [facility] [address] [id number] [place] [address]- 3876 Mar, [facility] [place] [facility] [address] [id number] [place] [address]- 1382 Mar, [facility] [place] [facility] [address] [facility] [id number] [place] [address]- 7759 Mar, [facility] [place] [facility] [address] [id number] [place] [address]- 4851 Mar, [facility] [place] [facility] [address] [id number] [place] [address]- 5076 Mar, [facility] [place] [facility] [address] [id number] [place] [address]- 1071 Mar, [facility] [place] [facility] [address] [id number] [place] [address]- 5600 Mar, [facility] [place] [facility] [id number] [place] [address]- 6644 Mar, [facility] [place] [facility] [address] [id number] [place] [address]- 3318 Mar, [facility] [place] [facility] [address] [id number] [place] [address]- 2417 Mar, [facility] [place] [facility] [address] [id number] [place] [address]- 9296 Mar, [facility] [place] [facility] [address] [id number] [place] [address]- 7074 Mar, [facility] [place] [facility] [address] [id number] [place] [address]- 5686 Mar, [facility] [place] [facility] [address] [id number] [place] [address]- 8604 Feb, [facility] [place] [facility] [address] [id number] [place] 2833 Feb, [facility] [place] [facility] [address] [id number] [place] [address]- 1363 Feb, [facility] [place] [facility] [address] [id number] [place] [address]- 6281 Feb, [facility] [place] [facility] [address] [id number] [place] [address]- 2239 Feb, [facility] [place] [facility] [address] [facility] [id number] [place] [address]- 4369 Feb, [facility] [place] [facility] [address] [id number] [place] [address]- 3020 Feb, [facility] [place] [facility] [address] [id number] [place] [address]- 4608 Feb, [facility] [place] [facility] [address] [id number] [place] [address]- 4286 Feb, [facility] [place] [facility] [address] [id number] [place] [address]- 3081 Feb, [facility] [place] [facility] [address] [id number] [place] [address]- 8559 Jan, [facility] [place] [facility] [address] [id number] [place] [address]- 3904 Dec, [facility] [place] [facility] [address] [id number] [place] [address]- 2023 Dec, [facility] [place] [facility] [address] [id number] [place] [address]- 6737 Nov, [facility] [place] [facility] [address] [id number] [place] [address]- 5015 Nov, [facility] [place] [facility] [address] [id number] [place] [address]- 6676 Nov, [facility] [place] [facility] [address] [id number] [place] [address]- 3369 Nov, [facility] [place] [facility] [address] [id number] [place] [address]- 3234 Oct, [facility] [place] [facility] [address] [id number] [place] [address]- 0366 Oct, [facility] [place] [facility] [address] [id number] [place] [address]- 8898 Oct, [facility] [place] [facility] [address] [id number] [place] [address]- 4180 Oct, [facility] [place] [facility] [address] [id number] [place] [address]- 9349 September, [facility] [place] [facility] [address] [id number] [place] [address]- 5294 September, [facility] [place] [facility] [address] [id number] [place] [address]- 0918 Aug, [facility] [place] [facility] [address] [id number] [place] [address]- 4883 Aug, [facility] [place] [facility] [address] [id number] [place] [address]- 6048 Aug, [facility] [place] [facility] [address], [place] [address]- 7113 30 Jul, 2011 [facility] [address], [place] [address]- 1568 Jul, [facility] [address], [place] [address]- 3634 15 Jun, 2011 [facility] [address], [place] [address]- 8278 Jun, [facility] [address] [place] [address] 68466- 6170 Jun, [facility] [address] [place] [address] 94665- 3661 Apr, [facility] [address], [place] [address]- 3497 Apr, [facility] [address] [place] [address] 01279- 3221 Mar, [facility] [address], [place] [address]- 5111 Mar, [facility] [address], [place] [address]- 9067 Feb, [facility] [address], [place] [address]- 5528 Dec, [facility] [address], [place] [address]- 2653 Nov, IMMUNIZATIONS No Known Immunizations SOCIAL HISTORY [...]
--- OUTSIDE RECORDS SUMMARY | 2018-09-17 13:22 | XMS REPORT ---
Author Author Migration, Doctor Organization [facility] Address Unknown Phone Unavailable Care Team Providers Care Coroner/Medical Examiner Name Role Phone Migration, Doctor Unavailable Unavailable PROBLEMS Type Condition ICD9-CM Code [id number] Code Onset Dates Condition Status SNOMED Code Problem Nausea with vomiting 787.01 Active 38205108 Problem Diarrhea 787.91 Active 41145920 Problem Pain in joint, shoulder region 719.41 Active 523941773 Problem Pain in joint, lower leg 719.46 Active 080578668 Problem Unspecified local infection of skin and subcutaneous tissue 686.9 Active 668069218 Problem Unspecified disorder of skin and subcutaneous tissue 709.9 Active 38295890 Problem 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 058296614 Problem Unspecified episodic mood disorder 296.90 Active 794587391 Problem Vascular dementia, uncomplicated 290.40 Active 52401099 Problem Major depressive disorder, recurrent, unspecified F33.9 Active 78707747 Problem 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 Active 981927462 Problem Vascular dementia with behavioral disturbance F01.51 Active [id number] Problem Unspecified hypotension 458.9 Active 35147854 Problem Other and unspecified hyperlipidemia 272.4 Active 97432392 Problem Diabetes mellitus without mention of complication, type II or unspecified type, not stated as uncontrolled 250.00 Active 132661295 Problem 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 Active 41407287 Problem Unspecified mood [affective] disorder F39 Active [id number] ALLERGIES No Information ENCOUNTERS Encounter Location Date Diagnosis [facility] [address] [facility] [id number] [address] September, [facility] [address] [facility] [id number], [place] [address] Aug, [facility] [address] [facility] [id number] [address] [address] Feb, Major depressive disorder, recurrent, unspecified F33.9 and Vascular dementia with behavioral disturbance F01.51 [facility] [address] [address] Dec, Major depressive disorder, recurrent, unspecified F33.9 [facility] [id number] [place] [address] 06406- 1126 Oct, Unspecified mood [affective] disorder F39 [facility] [id number] [place] [address] 59793- 8782 September, Major depressive disorder, recurrent, unspecified F33.9 [facility] [id number] [place] [address] [id number] May, [facility] [id number] [place] [address] 56360- 0237 May, Major depressive disorder, recurrent, unspecified F33.9 [facility] [id number] [place] [address] 48890- 2687 Feb, Major depressive disorder, recurrent, unspecified F33.9 [facility] [address] [address] Jan, Major depressive disorder, recurrent, unspecified F33.9 [facility] [id number] [place] [address] 53524- 0434 Jan, Major depressive disorder, recurrent, unspecified F33.9 [facility] [id number] [place] [address] 14832- 1561 Jan, Major depressive disorder, recurrent, unspecified F33.9 [facility] [address] [address] Dec, Major depressive disorder, recurrent, unspecified F33.9 [facility] [address] [id number] [address] 0613 Nov, Major depressive disorder, recurrent, unspecified F33.9 [facility] [id number] [place] [address] 82693- 5955 Nov, 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 [facility] [id number] [place] [address] 37304- 0717 08 Oct, 2016 Unspecified mood [affective] disorder F39 ; Major depressive disorder, recurrent, unspecified F33.9 and Vascular dementia with behavioral disturbance F01.51 [facility] [id number] [place] [address] 12084- 3990 May, 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 [facility] [id number] [place] [address] 60049- 5963 14 Aug, 2014 [facility] [address] [address]- 1101 Aug, [facility] [id number] [place] [address] 47538- 4311 15 Feb, 2013 [facility] [id number] [place] [address] 59416- 2434 Feb, [facility] [id number] [place] [address] 73881- 7003 Feb, [facility] [id number] [place] [address] 53423- 1229 Feb, [facility] [id number] [place] [address] 32234- 4430 23 Jan, 2013 [facility] [id number] [place] [address] 60662- 0077 20 Jan, 2012 [facility] [id number] [place] [address] 19446- 6071 18 Sep2012 [facility] [id number] [place] [address] 13552- 1638 10 Jan, 2012 [facility] [id number] [place] [address] 68352- 0727 09 Jan, 2012 [facility] [id number] [place] [address] 99823- 6523 06 Jan, 2012 [facility] [place] [facility] [address] [id number] [place] [address]- 2288 06 Jan, 2012 [facility] [place] [facility] [address] [id number] [place] [address]- 8044 05 Jan, 2013 [facility] [place] [facility] [address] [id number] [place] [address]- 5379 Jan, [facility] [place] [facility] [address] [id number] [place] [address]- 6018 Dec, [facility] [place] [facility] [address] [id number] [place] [address]- 1274 Nov, [facility] [place] [facility] [address] [id number] [place] [address]- 3907 Nov, [facility] [place] [facility] [address] [id number] [place] [address]- 9014 Nov, [facility] [place] [facility] [address] [id number] [place] [address]- 4762 Nov, [facility] [place] [facility] [address] [id number] [place] [address]- 2822 Nov, [facility] [place] [facility] [address] [id number] [place] [address]- 6029 Oct, [facility] [place] [facility] [address] [id number], [place] [address] 2289 Oct, [facility] [place] [facility] [address] [id number], [place] [address] 3959 Oct, [facility] [place] [facility] [address] [id number] [place] [address]- 7283 Oct, [facility] [place] [facility] [address] [id number] [place] [address]- 9425 Oct, [facility] [place] [facility] [address] [id number] [place] [address]- 9479 September, [facility] [place] [facility] [address] [id number] [place] [address]- 7527 07 Sep, 2012 [facility] [address] [id number] [place] [address]- 9150 30 Aug, 2012 [facility] [address] [id number] [place] [address]- 6656 15 Aug, 2012 [facility] [address] [id number] [place] [address]- 7982 02 Aug, 2012 [facility] [address] [id number] [place] [address]- 2741 28 Jul, 2012 [facility] [address] [id number] [place] [address]- 8377 25 Jul, 2012 [facility] [address] [id number] [place] [address]- 2827 22 Jul, 2012 [facility] [address] [id number] [place] [address]- 6453 21 Jul, 2012 [facility] [address] [id number] [place] [address]- 7534 20 Jul, 2012 [facility] [address] [id number] [place] [address]- 9640 19 Jul, 2012 [facility] [address] [id number] [place] [address]- 8461 19 Jul, 2012 [facility] [address] [id number] [place] [address]- 6955 18 Jul, 2012 [facility] [address] [id number] [place] [address]- 6234 14 Jul, 2012 [facility] [address] [id number] [place] [address]- 4975 18 Jun, 2012 [facility] [address] [id number] [place] [address]- 5436 08 Jun, 2012 [facility] [address] [id number] [place] [address]- 4525 06 Jun, 2012 [facility] [address] [id number] [place] [address]- 9442 31 May, 2012 [facility] [place] [facility] [address] [id number] [place] [address]- 7239 30 May, 2012 [facility] [place] [facility] [address] [id number] [place] [address]- 5466 29 May, 2012 [facility] [place] [facility] [address] [id number] [place] [address]- 9944 28 May, 2012 [facility] [place] [facility] [address] [id number] [place] [address]- 3537 31 Apr, 2012 [facility] [place] [facility] [address] [id number] [place] [address]- 3467 31 Apr, 2012 [facility] [place] [facility] [address] [id number] [place] [address]- 8013 18 Apr, 2012 [facility] [place] [facility] [address] [id number] [place] [address]- 0521 18 Apr, 2012 [facility] [place] [facility] [address] [id number] [place] [address]- 1579 17 Apr, 2012 [facility] [place] [facility] [address] [id number] [place] [address]- 8094 17 Apr, 2012 [facility] [place] [facility] [address] [id number] [place] [address]- 1637 14 Apr, 2012 [facility] [place] [facility] [address] [id number] [place] [address]- 7392 14 Apr, 2012 [facility] [place] [facility] [address] [id number] [place] [address]- 3558 14 Apr, 2012 [facility] [place] [facility] [address] [id number] [place] [address]- 4150 14 Apr, 2012 [facility] [place] [facility] [address] [id number] [place] [address]271 10 Apr, 2012 [facility] [place] [facility] [address] [id number] [place] [address]- 7836 Apr, [facility] [place] [facility] [address] [id number] [place] [address]- 2671 Apr, [facility] [place] [facility] [address] [id number] [place] [address]- 5296 Apr, [facility] [place] [facility] [address] [id number] [place] [address]- 1156 Apr, [facility] [place] [facility] [address] [id number] [place] [address]- 0498 Apr, [facility] [place] [facility] [address] [id number] [place] [address]- 4493 Apr, [facility] [place] [facility] [address] [id number] [place] [address]- 4098 Apr, [facility] [place] [facility] [address] [id number] [place] [address]- 3797 Apr, [facility] [place] [facility] [address] [id number] [place] [address]- 6121 Mar, [facility] [place] [facility] [address] [id number] [place] [address]- 9435 Mar, [facility] [place] [facility] [address] [facility] [id number] [place] [address]- 5626 Mar, [facility] [place] [facility] [address] [id number] [place] [address]- 2911 Mar, [facility] [place] [facility] [address] [id number] [place] [address]- 8450 Mar, [facility] [place] [facility] [address] [id number] [place] [address]- 3851 Mar, [facility] [place] [facility] [address] [id number] [place] [address]- 1934 Mar, [facility] [place] [facility] [id number] [place] [address]- 4097 Mar, [facility] [place] [facility] [address] [id number] [place] [address]- 4855 Mar, [facility] [place] [facility] [address] [id number] [place] [address]- 8584 Mar, [facility] [place] [facility] [address] [id number] [place] [address]- 4776 Mar, [facility] [place] [facility] [address] [id number] [place] [address]- 3253 Mar, [facility] [place] [facility] [address] [id number] [place] [address]- 0459 Mar, [facility] [place] [facility] [address] [id number] [place] [address]- 2838 Feb, [facility] [place] [facility] [address] [id number] [place] 2935 Feb, [facility] [place] [facility] [address] [id number] [place] [address]- 9829 Feb, [facility] [place] [facility] [address] [id number] [place] [address]- 4055 Feb, [facility] [place] [facility] [address] [id number] [place] [address]- 5298 Feb, [facility] [place] [facility] [address] [facility] [id number] [place] [address]- 1836 Feb, [facility] [place] [facility] [address] [id number] [place] [address]- 3916 Feb, [facility] [place] [facility] [address] [id number] [place] [address]- 4044 Feb, [facility] [place] [facility] [address] [id number] [place] [address]- 5746 Feb, [facility] [place] [facility] [address] [id number] [place] [address]- 9254 Feb, [facility] [place] [facility] [address] [id number] [place] [address]- 5327 Jan, [facility] [place] [facility] [address] [id number] [place] [address]- 8640 Dec, [facility] [place] [facility] [address] [id number] [place] [address]- 7747 Dec, [facility] [place] [facility] [address] [id number] [place] [address]- 5483 Nov, [facility] [place] [facility] [address] [id number] [place] [address]- 2409 Nov, [facility] [place] [facility] [address] [id number] [place] [address]- 7361 Nov, [facility] [place] [facility] [address] [id number] [place] [address]- 0316 Nov, [facility] [place] [facility] [address] [id number] [place] [address]- 8882 Oct, [facility] [place] [facility] [address] [id number] [place] [address]- 7581 Oct, [facility] [place] [facility] [address] [id number] [place] [address]- 2575 Oct, [facility] [place] [facility] [address] [id number] [place] [address]- 2409 Oct, [facility] [place] [facility] [address] [id number] [place] [address]- 5402 September, [facility] [place] [facility] [address] [id number] [place] [address]- 6681 September, [facility] [place] [facility] [address] [id number] [place] [address]- 2709 Aug, [facility] [place] [facility] [address] [id number] [place] [address]- 8947 Aug, [facility] [place] [facility] [address] [id number] [place] [address]- 8823 Aug, [facility] [place] [facility] [address] [address]- 8409 30 Jul, 2011 [facility] [address], [place] [address]- 4051 Jul, [facility] [address], [place] [address]- 1883 15 Jun, 2011 [facility] [address], [place] [address]- 2533 Jun, [facility] [id number] [place] [address] 60382- 3609 Jun, [facility] [id number] [place] [address] 58971- 3695 Apr, [facility] [address], [place] [address]- 2106 Apr, [facility] [id number] [place] [address] 81373- 0704 Mar, [facility] [address], [place] [address]- 9085 Mar, [facility] [address], [place] [address]- 3003 Feb, [facility] [address], [place] [address]- 2804 Dec, [facility] [address], [place] [address]- 6828 Nov, IMMUNIZATIONS No Known Immunizations SOCIAL HISTORY Never Assessed REASON FOR VISIT EMR-[facility] [place] PLAN OF CARE VITAL SIGNS MEDICATIONS Unknown [...]
--- OUTSIDE RECORDS SUMMARY | 2018-09-17 13:23 | XMS REPORT ---
Author Author Migration, Doctor Organization [facility] Address Unknown Phone Unavailable Care Team Providers Care Cable Former Name Role Phone Migration, Doctor Unavailable Unavailable PROBLEMS Type Condition ICD9-CM Code WEN93-IU Code Onset Dates Condition Status SNOMED Code Problem Nausea with vomiting 787.01 Active 98203015 Problem Diarrhea 787.91 Active 28178096 Problem Pain in joint, shoulder region 719.41 Active 884241182 Problem Pain in joint, lower leg 719.46 Active 762467662 Problem Unspecified local infection of skin and subcutaneous tissue 686.9 Active 464718403 Problem Unspecified disorder of skin and subcutaneous tissue 709.9 Active 89174610 Problem 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 483221837 Problem Unspecified episodic mood disorder 296.90 Active 685775688 Problem Vascular dementia, uncomplicated 290.40 Active 06099625 Problem Major depressive disorder, recurrent, unspecified F33.9 Active 07851067 Problem 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 Active 064608275 Problem Vascular dementia with behavioral disturbance F01.51 Active 800898563455290 Problem Unspecified hypotension 458.9 Active 18460387 Problem Other and unspecified hyperlipidemia 272.4 Active 88291951 Problem Diabetes mellitus without mention of complication, type II or unspecified type, not stated as uncontrolled 250.00 Active 349917675 Problem 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 Active 75481915 Problem Unspecified mood [affective] disorder F39 Active [id number] ALLERGIES No Information ENCOUNTERS Encounter Location Date Diagnosis [facility] [address] [facility]NOTE [facility] [id number] September, [facility] [address] [facility]NOTE [facility]] [id number] [address] Aug, [facility] [address] [facility]NOTE [facility]] [id number] Feb, Major depressive disorder, recurrent, unspecified F33.9 and Vascular dementia with behavioral disturbance F01.51 [facility] [address] [address] Dec, Major depressive disorder, recurrent, unspecified F33.9 [facility] [id number] [place] [address] 12956- 4802 Oct, Unspecified mood [affective] disorder F39 [facility] [id number] [place] [address] 95194- 5405 September, Major depressive disorder, recurrent, unspecified F33.9 [facility] [id number] [place] [address] [id number] May, [facility] [id number] [place] [address] 88283- 4361 May, Major depressive disorder, recurrent, unspecified F33.9 [facility] [id number] [place] [address] 61647- 6387 Feb, Major depressive disorder, recurrent, unspecified F33.9 [facility] [address] [address] Jan, Major depressive disorder, recurrent, unspecified F33.9 [facility] [address] [place] [address] 43446- 6648 Jan, Major depressive disorder, recurrent, unspecified F33.9 [facility] [address] [place] [address] 03480- 9911 Jan, Major depressive disorder, recurrent, unspecified F33.9 [facility] [address] [address] Dec, Major depressive disorder, recurrent, unspecified F33.9 [facility] [address] [id number] [address] Nov, Major depressive disorder, recurrent, unspecified F33.9 [facility] [address] [place] [address] 10947- 4266 Nov, 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 [facility] [id number] [place] [address] 58723- 8618 08 Oct, 2016 Unspecified mood [affective] disorder F39 ; Major depressive disorder, recurrent, unspecified F33.9 and Vascular dementia with behavioral disturbance F01.51 [facility] [id number] [place] [address] 76282- 4063 May, 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 [facility] [id number] [place] [address] 77901- 2965 14 Aug, 2014 [facility] [address] [address]- [address] Aug, [facility] [id number] [place] [address] 16119- 3978 15 Feb, 2013 [facility] [id number] [place] [address] 67695- 3180 Feb, [facility] [id number] [place] [address] 23750- 6752 Feb, [facility] [id number] [place] [address] 52777- 2890 Feb, [facility] [id number] [place] [address] 87557- 2568 23 Jan, 2013 [facility] [id number] [place] [address] 00986- 1551 20 Jan, 2012 [facility] [id number] [place] [address] 04836- 3891 18 Sep2012 [facility] [id number] [place] [address] 55272- 3868 10 Jan, 2012 [facility] [id number] [place] [address] 94433- 9354 09 Jan, 2012 [facility] [id number] [place] [address] 18979- 8161 06 Jan, 2012 [facility] [place] [facility] [address] [id number] [place] [address]- 6781 06 Jan, 2012 [facility] [place] [facility] [address] [id number] [place] [address]- 5082 05 Jan, 2013 [facility] [place] [facility] [address] [id number] [place] [address]- 6385 Jan, [facility] [place] [facility] [address] [id number] [place] [address]- 7601 Dec, [facility] [place] [facility] [address] [id number] [place] [address]- 6952 Nov, [facility] [place] [facility] [address] [id number] [place] [address]- 9428 Nov, [facility] [place] [facility] [address] [id number] [place] [address]- 7640 Nov, [facility] [place] [facility] [address] [id number] [place] [address]- 3177 Nov, [facility] [place] [facility] [address] [id number] [place] [address]- 9918 Nov, [facility] [place] [facility] [address] [id number] [place] [address]- 0377 Oct, [facility] [place] [facility] [address] [id number], [place] [address]- 3682 Oct, [facility] [place] [facility] [address] [id number], [place] [address]- 8376 Oct, [facility] [place] [facility] [address] [id number] [place] [address]- 3260 Oct, [facility] [place] [facility] [address] [id number] [place] [address]- 4464 Oct, [facility] [place] [facility] [address] [id number] [place] [address]- 1099 September, [facility] [place] [facility] [address] [id number] [place] [address]- 3241 07 Sep, 2012 [facility] [address] [id number] [place] [address]- 8924 30 Aug, 2012 [facility] [address] [id number] [place] [address]- 2826 15 Aug, 2012 [facility] [address] [id number] [place] [address]- 2576 02 Aug, 2012 [facility] [address] [id number] [place] [address]- 7283 28 Jul, 2012 [facility] [address] [id number] [place] [address]- 6462 25 Jul, 2012 [facility] [address] [id number] [place] [address]- 8920 22 Jul, 2012 [facility] [address] [id number] [place] [address]- 2498 21 Jul, 2012 [facility] [address] [id number] [place] [address]- 9350 20 Jul, 2012 [facility] [address] [id number] [place] [address]- 2307 19 Jul, 2012 [facility] [address] [id number] [place] [address]- 0108 19 Jul, 2012 [facility] [address] [id number] [place] [address]- 6121 18 Jul, 2012 [facility] [address] [id number] [place] [address]- 3568 14 Jul, 2012 [facility] [address] [id number] [place] [address]- 7076 18 Jun, 2012 [facility] [address] [id number] [place] [address]- 2866 08 Jun, 2012 [facility] [address] [id number] [place] [address]- 5801 06 Jun, 2012 [facility] [address] [id number] [place] [address]- 8902 31 May, 2012 [facility] [place] [facility] [address] [id number] [place] [address]- 3029 30 May, 2012 [facility] [place] [facility] [address] [id number] [place] [address]- 0725 29 May, 2012 [facility] [place] [facility] [address] [id number] [place] [address]- 6794 28 May, 2012 [facility] [place] [facility] [address] [id number] [place] [address]- 8105 31 Apr, 2012 [facility] [place] [facility] [address] [id number] [place] [address]- 8841 31 Apr, 2012 [facility] [place] [facility] [address] [id number] [place] [address]- 8827 18 Apr, 2012 [facility] [place] [facility] [address] [id number] [place] [address]- 1040 18 Apr, 2012 [facility] [place] [facility] [address] [id number] [place] [address]- 1812 17 Apr, 2012 [facility] [place] [facility] [address] [id number] [place] [address]- 5846 17 Apr, 2012 [facility] [place] [facility] [address] [id number] [place] [address]- 7537 14 Apr, 2012 [facility] [place] [facility] [address] [id number] [place] [address]- 9398 14 Apr, 2012 [facility] [place] [facility] [address] [id number] [place] [address]- 8204 14 Apr, 2012 [facility] [place] [facility] [address] [id number] [place] [address]- 6205 14 Apr, 2012 [facility] [place] [facility] [address] [id number] [place] 1958 10 Apr, 2012 [facility] [place] [facility] [address] [id number] [place] [address]- 3841 Apr, [facility] [place] [facility] [address] [id number] [place] [address]- 9536 Apr, [facility] [place] [facility] [address] [id number] [place] [address]- 3896 Apr, [facility] [place] [facility] [address] [id number] [place] [address]- 1046 Apr, [facility] [place] [facility] [address] [id number] [place] [address]- 4876 Apr, [facility] [place] [facility] [address] [id number] [place] [address]- 2785 Apr, [facility] [place] [facility] [address] [id number] [place] [address]- 3271 Apr, [facility] [place] [facility] [address] [id number] [place] [address]- 8279 Apr, [facility] [place] [facility] [address] [id number] [place] [address]- 6725 Mar, [facility] [place] [facility] [address] [id number] [place] [address]- 2746 Mar, [facility] [place] [facility] [address] [facility]] [id number] [place] [address]- 7646 Mar, [facility] [place] [facility] [address] [id number] [place] [address]- 4484 Mar, [facility] [place] [facility] [address] [id number] [place] [address]- 1524 Mar, [facility] [place] [facility] [address] [id number] [place] [address]- 4657 Mar, [facility] [place] [facility] [address] [id number] [place] [address]- 7039 Mar, [facility] [place] [facility] [id number] [place] [address]- 7737 Mar, [facility] [place] [facility] [address] [id number] [place] [address]- 4405 Mar, [facility] [place] [facility] [address] [id number] [place] [address]- 8181 Mar, [facility] [place] [facility] [address] [id number] [place] [address]- 9136 Mar, [facility] [place] [facility] [address] [id number] [place] [address]- 2551 Mar, [facility] [place] [facility] [address] [id number] [place] [address]- 2250 Mar, [facility] [place] [facility] [address] [id number] [place] [address]- 4120 Feb, [facility] [place] [facility] [address] [id number] [place] 8071 Feb, [facility] [place] [facility] [address] [id number] [place] [address]- 0174 Feb, [facility] [place] [facility] [address] [id number] [place] [address]- 2680 Feb, [facility] [place] [facility] [address] [id number] [place] [address]- 5159 Feb, [facility] [place] [facility] [address] [facility]] [id number] [place] [address]- 7274 Feb, [facility] [place] [facility] [address] [id number] [place] [address]- 3104 Feb, [facility] [place] [facility] [address] [id number] [place] [address]- 5674 Feb, [facility] [place] [facility] [address] [id number] [place] [address]- 5416 Feb, [facility] [place] [facility] [address] [id number] [place] [address]- 0436 Feb, [facility] [place] [facility] [address] [id number] [place] [address]- 1363 Jan, [facility] [place] [facility] [address] [id number] [place] [address]- 6663 Dec, [facility] [place] [facility] [address] [id number] [place] [address]- 6064 Dec, [facility] [place] [facility] [address] [id number] [place] [address]- 5200 Nov, [facility] [place] [facility] [address] [id number] [place] [address]- 2431 Nov, [facility] [place] [facility] [address] [id number] [place] [address]- 2406 Nov, [facility] [place] [facility] [address] [id number] [place] [address]- 6180 Nov, [facility] [place] [facility] [address] [id number] [place] [address]- 2573 Oct, [facility] [place] [facility] [address] [id number] [place] [address]- 5031 Oct, [facility] [place] [facility] [address] [id number] [place] [address]- 5405 Oct, [facility] [place] [facility] [address] [id number] [place] [address]- 5040 Oct, [facility] [place] [facility] [address] [id number] [place] [address]- 5871 September, [facility] [place] [facility] [address] [id number] [place] [address]- 5551 September, [facility] [place] [facility] [address] [id number] [place] [address]- 3786 Aug, [facility] [place] [facility] [address] [id number] [place] [address]- 4532 Aug, [facility] [place] [facility] [address] [id number] [place] [address]- 2358 Aug, [facility] [place] [facility] [address] [address]- 9389 30 Jul, 2011 [facility] [address] [address]- 4538 Jul, [facility] [address] [address]- 6022 15 Jun, 2011 [facility] [address], [place] [address]- 9022 Jun, [facility] [address] [place] [address] 22282- 9052 Jun, [facility] [address] [place] [address] 59530- 0341 Apr, [facility] [address], [place] [address]- 3063 Apr, [facility] [address] [place] [address] 50289- 1042 Mar, [facility] [address], [place] [address]- 5428 Mar, [facility] [address] [address]- 1411 Feb, [facility] [address] [address]- 0618 Dec, [facility] [address] [address]- 7761 Nov, IMMUNIZATIONS No Known Immunizations SOCIAL HISTORY Never Assessed REASON FOR VISIT EMR-[facility] PLAN OF CARE VITAL SIGNS MEDICATIONS Unknown [...]
--- OUTSIDE RECORDS SUMMARY | 2018-09-17 13:31 | XMS REPORT | Continuity of Care Document ---
Author Organization Unknown Address Unknown Allergies Active Description Code Type Severity Reaction [...] Yes MORPHINE Drug Allergy 06/20/2012 Yes morphine [id number] Drug Allergy Moderate psychosis 09/12/2012 Medications Medication [...] TAB 25 MG (LOPRESSOR) MG 06/22/2017 07/22/2017 BID&08,1999 LACTULOSE SYRUP LIQ 20 GM/30CC (CHRONULAC SYRUP) GM 06/22/2017 07/22/2017 BID& MILK OF MAGNESIA LIQ ml 06/22/2017 07/22/2017 PRN BID BUSPIRONE TAB 15 MG (BUSPAR) MG 12/201707/22/2017 BID&799,1999 APIXABAN TAB 5 MG (ELIQUIS) MG 12/201707/22/2017 BID&08,1999 TRAZODONE TAB 50 MG (DESYREL) MG 07/22/2017 [...] 06/23/2017 07/22/2017 Daily&0900 MultiVits (Thera M Plus) (xtnqgqyz-xddm-wjbvrsj) oral tablet TAB 06/23/2017 07/22/2017 Daily&0900 Rivastigmine [...] MG (DEPAKOTE SPRINKLE) MG 06/30/2017 07/29/2017 QAM&0800 METOPROLOL TAB 25 MG (LOPRESSOR) MG 08/15/2018 09/13/2018 BID&0800,1999 APIXABAN TAB 5 MG (ELIQUIS) MG 07/201809/13/2018 BID&0800,1999 RANITIDINE TAB 150 MG (ZANTAC) MG 08/15/2018 09/13/2018 Daily&0900 MultiVits (Thera M Plus) (vevzfpaq-cayd-yfpbdfi) oral tablet TAB 08/15/2018 09/13/2018 Daily&0900 Rivastigmine TD Patch 24 hour 9.5mg (EXELON) MG 08/15/2018 09/13/2018 Daily&0900 LEVOTHYROXINE TAB 150 MCG (SYNTHROID) MCG 08/15/2018 09/13/2018 Daily&0900 ACETAMINOPHEN ORAL TABLET 325mg(Tylenol) MG 08/15/2018 09/14/2018 PRN EVERY 6 Hour ALUM/MAG/SIMETH 30CC LIQ (MYLANTA PLUS) cc 08/15/2018 08/25/2018 PRN Q4H INSULIN ASPART PEN INJ 100 UNITS/CC (NOVOLOG FLEXPEN) units 08/15/2018 09/14/2018 AC&0630,1130,1630 CALMOSEPTINE OINT TUBE (RISAMINE OINT) an 08/15/2018 08/22/2018 PRN QID LOPERAMIDE CAP 2 MG (IMMODIUM) MG 08/15/2018 08/22/2018 PRN QID POLYETHYLENE GLYCOL POWDER UD PWD (MIRALAX 17GM UNIT DOSE PAKS) gm 08/15/2018 08/25/2018 PRN Q3H GABAPENTIN CAP 300 MG (NEURONTIN) MG 08/15/2018 09/14/2018 TID&0800,1400,2000 DIVALPROEX SPRINKLE CAP 125 MG (DEPAKOTE SPRINKLE) MG 08/15/2018 09/14/2018 TID&0800,1400,2000 VENLAFAXINE XR CAP 75 MG (EFFEXOR XR) MG 08/15/2018 09/14/2018 BID&0800,2000 BUSPIRONE TAB 5 MG (BUSPAR) MG 07/201809/14/2018 BID&0800,2000 SIMVASTATIN TAB 40 MG (ZOCOR) MG 09/13/2018 QPM&2000 INSULIN DETEMIR PEN INJ 100 UNITS/CC (LEVEMIR FLEXPEN) UNITS 08/15/2018 09/14/2018 BID&0800,2000 MILK OF [place] ml 08/15/2018 09/14/2018 PRN BID MELATONIN TAB 3 MG (MELATONIN) MG 08/15/2018 09/13/2018 QHS&2100 ASA 81MG CHEWABLE TAB 81 MG (BABY ASPIRIN) MG 08/16/2018 09/14/2018 QAM&0800 VITAMIN D-3 TAB 1000 UNITS (VITAMIN D-3) UNITS 08/16/2018 09/14/2018 Daily&0900 BISACODYL SUPPOS 10 MG (DULCOLAX SUPPOS) MG 08/16/2018 08/22/2018 PRN Daily DIVALPROEX SPRINKLE CAP 125 MG (DEPAKOTE SPRINKLE) MG 08/16/2018 09/15/2018 TID&0800,1400,2000 VENLAFAXINE XR CAP 75 MG (EFFEXOR XR) MG 08/17/2018 09/15/2018 Daily&0900 DIVALPROEX ER TAB 500 MG (DEPAKOTE ER) MG 08/17/2018 09/15/2018 QHS&2100 MELATONIN TAB 3 MG (MELATONIN) MG 08/17/2018 09/15/2018 QHS&2100 INSULIN ASPART PEN INJ 100 UNITS/CC (NOVOLOG FLEXPEN) Dr. Smith UNITS 08/18/2018 09/17/2018 AC&0630,1130,1630 Problems Date Dx Coded Attending Type Code Diagnosis Diagnosed By 10/08/2010 YANIRA CRESPO MD 401.1 HYPERTENSION, BENIGN ESSENTIAL 10/08/2010 YANIRA CRESPO MD 786.2 COUGH 10/08/2010 MIO GENTILE DO 401.1 HYPERTENSION, BENIGN ESSENTIAL 10/08/2010 MIO GENTILE DO 786.2 COUGH 10/08/2010 KRYSTLE WASSERMAN APRN 401.1 HYPERTENSION, BENIGN ESSENTIAL 10/08/2010 KRYSTLE WASSERMAN APRN 786.2 COUGH 10/08/2010 KRYSTLE WASSERMAN APRN 401.1 HYPERTENSION, BENIGN ESSENTIAL 10/08/2010 KRYSTLE WASSERMAN APRN 786.2 COUGH 10/08/2010 GENTILE DO, MIO K 401.1 HYPERTENSION, BENIGN ESSENTIAL 10/08/2010 GENTILE DO, MOI K 786.2 COUGH 10/08/2010 YANIRA CRESPO MD [...] 10/08/2010 RAMIREZ GHOTRA MD 786.2 COUGH 10/08/2010 KRYSTLE WASSERMAN APRN 401.1 HYPERTENSION, BENIGN ESSENTIAL 10/08/2010 KRYSTLE WASSERMAN APRN 786.2 COUGH 11/30/2010 YANIRA CRESPO MD 250.02 DIABETES II UNCONTROLLED (UNCOMPLICATED) 11/30/2010 YANIRA CRESPO MD 300.00 ANXIETY UNSPEC 11/30/2010 YANIRA CRESPO MD 414.00 CAD 11/30/2010 YANIRA CRESPO MD 724.2 BACK PAIN, LOWER 11/30/2010 YANIRA CRESPO MD 780.57 SLEEP APNEA 11/30/2010 YANIRA CRESPO MD 786.05 SHORTNESS OF BREATH 11/30/2010 SEFERINO CARIAS MIO K 250.02 DIABETES II UNCONTROLLED (UNCOMPLICATED) 11/30/2010 GENTILE DO MIO K 300.00 ANXIETY UNSPEC 11/30/2010 GENTILE DO MIO K 414.00 CAD 11/30/2010 GENTILE DO MIO K 724.2 BACK PAIN, LOWER 11/30/2010 GENTILE DO, MIO K 780.57 SLEEP APNEA 11/30/2010 GENTILE DO, MIO K 786.05 SHORTNESS OF BREATH 11/30/2010 KRYSTLE WASSERMAN APRN 250.02 DIABETES II UNCONTROLLED (UNCOMPLICATED) 11/30/2010 KRYSTLE WASSERMAN APRN T 300.00 ANXIETY UNSPEC 11/30/2010 KRYSTLE WASSERMAN APRN T 414.00 CAD 11/30/2010 KRYSTLE WASSERMAN APRN T 724.2 BACK PAIN, LOWER 11/30/2010 KRYSTLE WASSERMAN APRN T 780.57 SLEEP APNEA 11/30/2010 LISY DIRECTOR GOVERNMENTKRYSTLE Ruby 786.05 SHORTNESS OF BREATH 11/30/2010 KRYSTLE WASSERMAN APRN 250.02 DIABETES II UNCONTROLLED (UNCOMPLICATED) 11/30/2010 KRYSTLE WASSERMAN APRN T 300.00 ANXIETY UNSPEC 11/30/2010 KRYSTLE WASSERMAN APRN [...] MIO K 786.05 SHORTNESS OF BREATH 11/30/2010 YANIRA CRESPO [...] MD 724.2 BACK PAIN, LOWER 11/30/2010 YANIRA CREPSO MD 780.57 SLEEP APNEA 11/30/2010 YANIRA CRESPO [...] NAUSEA WITH VOMITING 12/09/2011 MIO GENTILE DO K 787.01 NAUSEA WITH VOMITING 12/09/2011 YANIRA CRESPO [...] DO 719.46 KNEE PAIN 12/23/2011 YANIRA CRESPO MD 719.46 KNEE PAIN 12/23/2011 719.46 KNEE PAIN 12/23/2011 719.46 KNEE PAIN 12/23/2011 719.46 KNEE PAIN 12/23/2011 719.46 KNEE PAIN 12/23/2011 719.46 KNEE PAIN 12/23/2011 YANIRA CRESPO MD 719.46 KNEE PAIN 12/23/2011 KRYSTLE WASSERMAN APRN 719.46 KNEE PAIN 12/23/2011 RAMIREZ GHOTRA MD 719.46 KNEE PAIN 12/23/2011 KRYSTLE WASSERMAN APRN 719.46 KNEE PAIN 02/13/2012 YANIRA CRESPO MD 272.4 HYPERLIPIDEMIA 02/13/2012 MIO GENTILE DO 272.4 HYPERLIPIDEMIA 02/13/2012 KRYSTLE WASSERMAN APRN 272.4 HYPERLIPIDEMIA 02/13/2012 KRYSTLE WASSERMAN APRN 272.4 HYPERLIPIDEMIA 02/13/2012 GENTILE MIO CARIAS 272.4 HYPERLIPIDEMIA 02/13/2012 YANIRA CRESPO MD 272.4 [...] INFARCT 03/21/2012 Ot 414.01 CORONARY ATHEROSCLEROSIS OF [place] CORON 03/21/2012 Ot 414.2 CHRONIC TOTAL OCCLUSION [...] WASSERMAN APRN 438.9 CVA LATE EFFECTS 06/13/2012 MOI GENTILE DO K 296.90 MOOD DISORDER 06/13/2012 GENTILE DOMIO K 438.9 CVA LATE EFFECTS 06/13/2012 YANIRA CRESPO [...] TYPE II OR UNSPEC 09/17/2012 RAMIREZ GHOTRA MD, Ot 272.4 HYPERLIPIDEMIA NEC/NOS 09/17/2012 RAMIREZ GHOTRA MD Ot 305.1 TOBACCO USE DISORDER 09/17/2012 RAMIREZ GHOTRA MD, Ot 311 DEPRESSIVE DISORDER NEC 09/17/2012 RAMIREZ GHOTRA MD Ot 357.2 NEUROPATHY IN DIABETES 09/17/2012 RAMIREZ GHOTRA MD Ot 403.90 HYPTNSV CHR KID DIS, UNSPEC, W CHR KD ST 09/17/2012 RAMIREZ GHOTRA MD, Ot 412 OLD MYOCARDIAL INFARCT 09/17/2012 RAMIREZ [...] GHOTRA MD Ot V45.81 AORTOCORONARY BYPASS 09/21/2012 ROCK CHEN MD E Ot 250.00 DIAB PRUDENCIO WO COMPL, TYPE II OR UNSPEC TY 09/21/2012 ROCK CHEN MD E Ot 275.41 HYPOCALCEMIA 09/21/2012 ROCK CHEN MD E Ot 414.00 CORON ATHEROSCLER NOS TYPE VESSEL, NATIV 09/21/2012 ROCK CHEN MD Ot 414.8 CHR ISCHEMIC HRT DIS NEC 09/21/2012 ROCK CHEN MD Ot 426.3 LEFT BB BLOCK NEC 09/21/2012 ROCK CHEN MD Ot 428.0 CONGESTIVE HEART FAILURE NOS 09/21/2012 ROCK CHEN MD Ot 428.23 ACUTE CHRONIC SYSTOLIC HRT FAILURE 09/21/2012 ROCK CHEN MD Ot 438.20 LATE EFF-CEREBR DIS,HEMIPLEGIA AFFECTING 09/21/2012 ROCK CHEN MD Ot 438.89 OTH LATE EFFECT-CEREBROVASCULAR DISEASE 09/21/2012 ROCK CHEN MD Ot 486 PNEUMONIA, ORGANISM NOS 09/21/2012 ROCK CHEN MD Ot 585.9 CHRONIC KIDNEY DISEASE, UNSPECIFIED 09/21/2012 ROCK CHEN MD Ot 781.2 ABNORMALITY OF GAIT 09/21/2012 APRIL ESPINAL, ROCK Fitch Ot 787.20 DYSPHAGIA, UNSPECIFIED 09/21/2012 ROCK CHEN MD Ot 787.91 DIARRHEA 09/21/2012 APRIL ESPINAL, ROCK Fitch Ot V15.81 HX OF PAST NONCOMPLIANCE 09/21/2012 ROCK CHEN MD Ot V15.82 HISTORY OF TOBACCO USE 09/21/2012 ROCK CHEN MD Ot V45.81 AORTOCORONARY BYPASS 09/21/2012 ROCK CHEN MD Ot V57.1 PHYSICAL THERAPY NEC 09/21/2012 ROCK CHEN MD Ot V57.21 ENCOUNTER FOR OCCUPATIONAL THERAPY 09/23/2012 ROXANNE ESPINAL, ESTEPHANIE Hewitt Ot 300.00 ANXIETY STATE NOS 09/23/2012 ROXANNE ESPINAL, ESTEPHANIE Hewitt Ot 780.2 SYNCOPE AND COLLAPSE 09/23/2012 ESTEPHANIE OLIVEIRA MD Ot 786.50 CHEST PAIN NOS 09/23/2012 ESTEPHANIE OLIVEIRA MD A Ot 793.19 OTHER NONSPECIFIC ABNORMAL FINDING OF [place] 11/21/2012 YANIRA CRESPO MD Ot 438.89 OTH LATE EFFECT-CEREBROVASCULAR DISEASE 11/21/2012 YANIRA CRESPO MD Ot V57.1 PHYSICAL THERAPY NEC 11/21/2012 YANIRA CRESPO MD, Ot V57.21 ENCOUNTER FOR OCCUPATIONAL THERAPY 11/22/2012 787.91 DIARRHEA 11/22/2012 YANIRA CRESPO MD 787.91 DIARRHEA 11/22/2012 KRYSTLE WASSERMAN APRN 787.91 DIARRHEA 11/22/2012 RAMIREZ GHOTRA MD 787.91 DIARRHEA 12/06/2012 290.40 VASCULAR DEMENTIA UNCOMPLICATED 12/06/2012 YANIRA CRESPO MD 290.40 VASCULAR DEMENTIA UNCOMPLICATED 12/06/2012 KRYSTLE WASSERMAN APRN 290.40 VASCULAR DEMENTIA UNCOMPLICATED 12/06/2012 RAMIREZ GHOTRA [...] CRESPO MD Ot 414.01 CORONARY ATHEROSCLEROSIS OF [place] CORON 01/18/2013 YANIRA CRESPO MD Ot 428.0 CONGESTIVE HEART FAILURE NOS 01/18/2013 YANIRA CRESPO MD Ot 438.20 LATE EFF-CEREBR DIS,HEMIPLEGIA AFFECTING 01/18/2013 YANIRA CRESPO MD Ot 585.9 CHRONIC KIDNEY DISEASE, UNSPECIFIED 01/18/2013 YANIRA CRESPO MD Ot 719.41 JOINT PAIN-SHLDER 01/18/2013 YANIRA CRESPO MD Ot 782.3 EDEMA 01/18/2013 YANIRA CRESPO MD Ot V45.81 AORTOCORONARY BYPASS 01/22/2013 YANIRA CRESPO MD 709.9 UNSPECIFIED DISORDER OF SKIN AND SUBCUTANEOUS TISSUE 01/22/2013 YANIRA CRESPO MD 719.41 PAIN IN JOINT INVOLVING SHOULDER REGION 01/22/2013 KRYSTLE WASSERMAN APRN 709.9 UNSPECIFIED DISORDER OF SKIN AND SUBCUTANEOUS TISSUE 01/22/2013 KRYSTLE WASSERMAN APRN 719.41 PAIN IN JOINT INVOLVING SHOULDER REGION 01/22/2013 RAMIREZ GHOTRA MD 709.9 UNSPECIFIED DISORDER OF SKIN AND SUBCUTANEOUS TISSUE 01/22/2013 RAMIREZ GHOTRA MD 719.41 PAIN IN JOINT INVOLVING SHOULDER REGION 02/13/2013 GERMANIA ROMAN Ot 438.20 LATE EFF-CEREBR DIS,HEMIPLEGIA AFFECTING 02/13/2013 [...] OLIVEIRA MD Ot J44.1 04/29/2015 OLENA OLIVEIRA MD Ot J96.00 04/29/2015 OLENA OLIVEIRA MD Ot N17.9 04/29/2015 OLENA OLIVEIRA MD Ot N18.3 04/29/2015 OLENA OLIVEIRA MD Ot Z66 04/29/2015 OLENA OLIVEIRA MD Ot Z87.891 04/29/2015 OLENA OLIVEIRA MD Ot Z95.1 04/29/2015 OLENA OLIVEIRA MD Ot A41.9 SEPSIS, UNSPECIFIED ORGANISM 04/29/2015 OLENA OLIVEIRA MD Ot E03.9 HYPOTHYROIDISM, UNSPECIFIED 04/29/2015 OLENA OLIVEIRA MD Ot E08.42 DIABETES DUE TO UNDERLYING CONDITION W D 04/29/2015 OLENA OLIVEIRA MD Ot E66.9 OBESITY, UNSPECIFIED 04/29/2015 OLENA OLIVEIRA MD Ot E78.5 HYPERLIPIDEMIA, UNSPECIFIED 04/29/2015 OLENA OLIVEIRA MD Ot F01.51 VASCULAR DEMENTIA WITH BEHAVIORAL DISTUR 04/29/2015 OLNEA OLIVEIRA MD, Ot G47.33 OBSTRUCTIVE SLEEP APNEA (ADULT) (PEDIATR 04/29/2015 OLENA OLIVEIRA MD, Ot I12.9 HYPERTENSIVE CHRONIC KIDNEY DISEASE W ST 04/29/2015 OLENA OLIVEIRA MD, Ot I21.4 NON-ST ELEVATION (NSTEMI) MYOCARDIAL INF 04/29/2015 OLENA OLIVEIRA MD, Ot I25.5 ISCHEMIC CARDIOMYOPATHY 04/29/2015 OLENA OLIVEIRA MD, Ot I50.23 ACUTE ON CHRONIC SYSTOLIC (CONGESTIVE) H 04/29/2015 OLENA OLIVEIRA MD, Ot I69.354 HEMIPLGA FOLLOWING CEREBRAL INFRC AFFECT 04/29/2015 OLENA OLIVEIRA MD, Ot I69.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 04/29/2015 OLENA OLIVEIRA MD, Ot J18.9 PNEUMONIA, UNSPECIFIED ORGANISM 04/29/2015 OLENA OLIVEIRA MD, Ot J44.1 CHRONIC OBSTRUCTIVE PULMONARY DISEASE W 04/29/2015 OLENA OLIVEIRA MD, Ot J96.00 04/29/2015 OLENA OLIVEIRA MD, Ot J96.01 ACUTE RESPIRATORY FAILURE WITH HYPOXIA 04/29/2015 OLENA OLIVEIRA MD, Ot N17.9 ACUTE KIDNEY FAILURE, UNSPECIFIED 04/29/2015 OLENA OLIVEIRA MD, Ot N18.3 CHRONIC KIDNEY DISEASE, STAGE 3 (MODERAT 04/29/2015 OLENA OLIVEIRA MD, Ot R65.20 SEVERE SEPSIS WITHOUT SEPTIC SHOCK 04/29/2015 OLENA OLIVEIRA MD Ot Z66 DO NOT RESUSCITATE 04/29/2015 OLENA OLIVEIRA MD Ot Z68.41 BODY MASS INDEX (BMI) 40.0-44.9, ADULT 04/29/2015 OLENA OLIVEIRA MD, Ot Z79.4 PENITENTIARY (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 OF INSULIN 04/29/2015 OLENA OLIVEIRA MD, Ot Z87.891 PERSONAL HISTORY OF NICOTINE DEPENDENCE 04/29/2015 OLENA OLIVEIRA MD Ot Z95.1 PRESENCE OF AORTOCORONARY BYPASS GRAFT 10/29/2015 W 276.51 DEHYDRATION 10/29/2015 W 593.9 UNSPECIFIED DISORDER OF KIDNEY AND URETER 10/29/2015 A 786.5 CHEST PAIN 10/29/2015 W E86.0 DEHYDRATION 10/29/2015 W N28.9 DISORDER OF KIDNEY AND URETER, UNSPECIFIED 10/29/2015 A R07.9 CHEST PAIN, UNSPECIFIED 05/24/2016 RANDEE EVANS APRN Ot E11.65 TYPE [...] (MODERAT 05/24/2016 RANDEE EVANS APRN Ot Z79.4 FOSTER WINDER (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 OF INSULIN 05/24/2016 RANDEE EVANS APRN Ot Z79.84 FOSTER WINDER (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 OF ORAL HYPOGLYC 05/24/2016 RANDEE EVANS APRN Ot Z79.899 OTHER PENITENTIARY (CURRENT) DRUG THERAPY 05/24/2016 RANDEE EVANS APRN [...] (MODERAT 05/25/2016 RANDEE EVANS APRN Ot Z79.4 FOSTER WINDER (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 OF INSULIN 05/25/2016 RANDEE EVANS APRN Ot Z79.84 PENITENTIARY (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 OF ORAL HYPOGLYC 05/25/2016 RANDEE EVANS APRN Ot Z79.899 OTHER FOSTER WINDER (CURRENT) DRUG THERAPY 05/25/2016 RANDEE EVANS APRN [...] (MODERAT 05/26/2016 RANDEE EVANS APRN Ot Z79.4 PENITENTIARY (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 OF INSULIN 05/26/2016 RANDEE EVANS APRN Ot Z79.84 PENITENTIARY (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 OF ORAL HYPOGLYC 05/26/2016 RANDEE EVANS APRN Ot Z79.899 OTHER FOSTER WINDER (CURRENT) DRUG THERAPY 05/26/2016 RANDEE EVANS APRN [...] (MODERAT 05/30/2016 RANDEE EVANS APRN Ot Z79.4 FOSTER WINDER (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 OF INSULIN 05/30/2016 RANDEE EVANS DIRECTOR GOVERNMENT Ot Z79.84 FOSTER WINDER (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 OF ORAL HYPOGLYC 05/30/2016 RANDEE EVANS DIRECTOR GOVERNMENT Ot Z79.899 OTHER FOSTER WINDER (CURRENT) DRUG THERAPY 05/30/2016 RANDEE EVANS DIRECTOR GOVERNMENT Ot Z95.1 PRESENCE OF AORTOCORONARY BYPASS GRAFT 03/15/2017 LIU PHAM MD Ot E78.5 HYPERLIPIDEMIA, UNSPECIFIED 03/15/2017 LIU PHAM MD Ot E78.5 HYPERLIPIDEMIA, UNSPECIFIED 04/04/2017 LIU PHAM MD Ot E03.9 HYPOTHYROIDISM, UNSPECIFIED 04/11/2017 LIU PHAM MD Ot E03.9 HYPOTHYROIDISM, UNSPECIFIED 07/04/2017 Tre, Toni W 244.9 UNSPECIFIED HYPOTHYROIDISM 07/04/2017 Tre, Toni W 250.00 07/04/2017 Tre, Toni W 268.9 UNSPECIFIED VITAMIN D DEFICIENCY 07/04/2017 Tre, Toni A 290.41 07/04/2017 Tre, Toni W 296.24 07/04/2017 Tre, Toni W 401.0 MALIGNANT ESSENTIAL HYPERTENSION 07/04/2017 Tre, Toni W 414.01 07/04/2017 Tre, Toni W 427.31 ATRIAL FIBRILLATION 07/04/2017 Tre, Toni W 428.9 07/04/2017 Tre, Toni W 438.22 07/04/2017 Tre Toni W 585.9 07/04/2017 Tre Toni W E03.9 HYPOTHYROIDISM, UNSPECIFIED 07/04/2017 Tre, Toni W E11.9 TYPE 2 DIABETES MELLITUS WITHOUT COMPLICATIONS 07/04/2017 Tre, Toni W E55.9 VITAMIN D DEFICIENCY, UNSPECIFIED 07/04/2017 Tre, Toni A F01.51 07/04/2017 Tre, Toni W 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, SINGLE EPSD, SEVERE W PSYCH FEATURES 07/04/2017 Ghazal Toledob W I10 ESSENTIAL (PRIMARY) HYPERTENSION 07/04/2017 Tre Toni W I25.10 ATHSCL HEART DISEASE OF [place] CORONARY ARTERY W/O ANG PCTRS 07/04/2017 Tre Toni W I48.91 UNSPECIFIED ATRIAL FIBRILLATION 07/04/2017 Tre Toni W I50.9 HEART FAILURE, UNSPECIFIED 07/04/2017 TreStephenieToni W 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 07/04/2017 TreToni farris W N18.9 CHRONIC KIDNEY DISEASE, UNSPECIFIED 02/09/2018 LIU PHAM MD Ot E03.9 HYPOTHYROIDISM, UNSPECIFIED 02/13/2018 LIU PHAM MD Ot E03.9 HYPOTHYROIDISM, UNSPECIFIED 02/15/2018 FRITZ RICK DIRECTOR GOVERNMENT Ot E11.622 TYPE 2 DIABETES MELLITUS WITH OTHER SKIN 02/15/2018 FRITZ RICK DIRECTOR GOVERNMENT Ot I87.2 VENOUS INSUFFICIENCY (CHRONIC) (PERIPHER 02/15/2018 FRITZ RICK R DIRECTOR GOVERNMENT Ot L97.222 NON-PRESSURE CHRONIC ULCER OF LEFT CALF 02/15/2018 FRITZ RICK R DIRECTOR GOVERNMENT Ot 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 02/15/2018 FRITZ RICK DIRECTOR GOVERNMENT Ot E11.622 TYPE 2 DIABETES MELLITUS WITH OTHER SKIN 02/15/2018 PRABHJOTFRITZ R DIRECTOR GOVERNMENT Ot I87.2 VENOUS INSUFFICIENCY (CHRONIC) (PERIPHER 02/15/2018 PRABHJOTFRITZ R DIRECTOR GOVERNMENT Ot L97.222 NON-PRESSURE CHRONIC ULCER OF LEFT CALF 02/15/2018 PRABHJOTFRITZ DIRECTOR GOVERNMENT Ot 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 02/20/2018 LIU PHAM MD Ot E03.9 HYPOTHYROIDISM, UNSPECIFIED 02/20/2018 FRITZ RICK DIRECTOR GOVERNMENT Ot E11.622 TYPE 2 DIABETES MELLITUS WITH OTHER SKIN 02/20/2018 FRITZ RICK R DIRECTOR GOVERNMENT Ot I87.2 VENOUS INSUFFICIENCY (CHRONIC) (PERIPHER 02/20/2018 FRITZ RICK R DIRECTOR GOVERNMENT Ot L97.222 NON-PRESSURE CHRONIC ULCER OF LEFT CALF 02/20/2018 FRITZ RICK DIRECTOR GOVERNMENT Ot 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 03/02/2018 LUIS ARMANDO MARTINEZ MD Ot E11.622 TYPE 2 DIABETES MELLITUS WITH OTHER SKIN 03/02/2018 LUIS ARMANDO MARTINEZ MD Ot 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 03/02/2018 LUIS ARMANDO MARTINEZ MD Ot I87.2 VENOUS INSUFFICIENCY (CHRONIC) (PERIPHER 03/02/2018 LUIS ARMANDO MARTINEZ MD Ot L97.222 NON-PRESSURE CHRONIC ULCER OF LEFT CALF 03/02/2018 LUIS ARMANDO MARTINEZ MD Ot 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 03/06/2018 TIAN RIVERA MD Ot E03.9 HYPOTHYROIDISM, UNSPECIFIED 03/06/2018 TIAN RIVERA MD, Ot E11.621 TYPE 2 DIABETES MELLITUS WITH FOOT ULCER 03/06/2018 TIAN RIVERA MD Ot E66.01 MORBID (SEVERE) OBESITY DUE TO EXCESS CA 03/06/2018 TIAN RIVERA MD, Ot E78.5 HYPERLIPIDEMIA, UNSPECIFIED 03/06/2018 TIAN RIVERA MD Ot I10 ESSENTIAL (PRIMARY) HYPERTENSION 03/06/2018 TIAN RIVERA MD, Ot I25.10 ATHSCL HEART DISEASE OF [place] CORONARY 03/06/2018 TIAN RIVERA MD Ot I69.354 HEMIPLGA FOLLOWING CEREBRAL INFRC AFFECT 03/06/2018 TIAN RIVERA MD, Ot I70.201 UNSP ATHSCL [place] ARTERIES OF EXTREMITI 03/06/2018 TIAN RIVERA MD, Ot I70.244 ATHSCL [place]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 03/06/2018 TIAN RIVERA MD, Ot L97.529 NON-PRESSURE CHRONIC ULCER OTH PRT LEFT 03/06/2018 TIAN RIVERA MD Ot Z68.35 BODY MASS INDEX (BMI) 35.0-35.9, ADULT 03/06/2018 TIAN RIVERA MD, Ot Z79.01 FOSTER WINDER (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 OF ANTICOAGULANT 03/06/2018 TIAN RIVERA MD, Ot Z79.4 PENITENTIARY (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 OF INSULIN 03/06/2018 TIAN RIVERA MD, Ot Z79.899 OTHER PENITENTIARY (CURRENT) DRUG THERAPY 03/08/2018 TIAN RIVERA MD, Ot E03.9 HYPOTHYROIDISM, UNSPECIFIED 03/08/2018 TIAN RIVERA MD Ot E11.621 TYPE 2 DIABETES MELLITUS WITH FOOT ULCER 03/08/2018 TIAN RIVERA MD Ot E66.01 MORBID (SEVERE) OBESITY DUE TO EXCESS CA 03/08/2018 TIAN RIVERA MD Ot E78.5 HYPERLIPIDEMIA, UNSPECIFIED 03/08/2018 TIAN RIVERA MD Ot I10 ESSENTIAL (PRIMARY) HYPERTENSION 03/08/2018 TIAN RIVERA MD Ot I25.10 ATHSCL HEART DISEASE OF [place] CORONARY 03/08/2018 TIAN RIVERA MD Ot I69.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 HEMIPLGA FOLLOWING CEREBRAL INFRC AFFECT 03/08/2018 TIAN RIVERA MD Ot I70.201 UNSP ATHSCL [place] ARTERIES OF EXTREMITI 03/08/2018 TIAN RIVERA MD Ot I70.244 ATHSCL [place]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 03/08/2018 TIAN RIVERA MD Ot L97.529 NON-PRESSURE CHRONIC ULCER OTH PRT LEFT 03/08/2018 TIAN RIVERA MD Ot Z68.35 BODY MASS INDEX (BMI) 35.0-35.9, ADULT 03/08/2018 TIAN RIVERA MD Ot Z79.01 PENITENTIARY (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 OF ANTICOAGULANT 03/08/2018 TIAN RIVERA MD Ot Z79.4 PENITENTIARY (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 OF INSULIN 03/08/2018 TIAN RIVERA MD Ot Z79.899 OTHER FOSTER WINDER (CURRENT) DRUG THERAPY 03/09/2018 TIAN RIVERA MD Ot E03.9 HYPOTHYROIDISM, UNSPECIFIED 03/09/2018 TIAN RIVERA MD Ot E11.621 TYPE 2 DIABETES MELLITUS WITH FOOT ULCER 03/09/2018 TIAN RIVERA MD Ot E66.01 MORBID (SEVERE) OBESITY DUE TO EXCESS CA 03/09/2018 TIAN RIVERA MD Ot E78.5 HYPERLIPIDEMIA, UNSPECIFIED 03/09/2018 TIAN RIVERA MD Ot I10 ESSENTIAL (PRIMARY) HYPERTENSION 03/09/2018 TIAN RIVERA MD Ot I25.10 ATHSCL HEART DISEASE OF [place] CORONARY 03/09/2018 TIAN RIVERA MD Ot I69.354 HEMIPLGA FOLLOWING CEREBRAL INFRC AFFECT 03/09/2018 TIAN RIVERA MD Ot I70.201 UNSP ATHSCL [place] ARTERIES OF EXTREMITI 03/09/2018 TIAN RIVERA MD, Ot I70.244 ATHSCL [place]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 03/09/2018 TIAN RIVERA MD, Ot L97.529 NON-PRESSURE CHRONIC ULCER OTH PRT LEFT 03/09/2018 TIAN RIVERA MD, Ot Z68.35 BODY MASS INDEX (BMI) 35.0-35.9, ADULT 03/09/2018 TIAN RIVERA MD, Ot Z79.01 PENITENTIARY (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 OF ANTICOAGULANT 03/09/2018 TIAN RIVERA MD, Ot Z79.4 PENITENTIARY (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 OF INSULIN 03/09/2018 TIAN RIVERA MD, Ot Z79.899 OTHER PENITENTIARY (CURRENT) DRUG THERAPY 03/13/2018 FRITZ RICK APRN Ot E11.622 TYPE 2 DIABETES MELLITUS WITH OTHER SKIN 03/13/2018 FRITZ RICK DIRECTOR GOVERNMENT Ot I87.2 VENOUS INSUFFICIENCY (CHRONIC) (PERIPHER 03/13/2018 FRITZ RICK DIRECTOR GOVERNMENT Ot L97.222 NON-PRESSURE CHRONIC ULCER OF LEFT CALF 03/13/2018 FRITZ RICK DIRECTOR GOVERNMENT Ot 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 03/13/2018 FRITZ RICK DIRECTOR GOVERNMENT Ot E11.622 TYPE 2 DIABETES MELLITUS WITH OTHER SKIN 03/13/2018 FRITZ RICK DIRECTOR GOVERNMENT Ot I70.242 ATHSCL [place]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 03/13/2018 FRITZ RICK DIRECTOR GOVERNMENT Ot I87.2 VENOUS INSUFFICIENCY (CHRONIC) (PERIPHER 03/13/2018 FRITZ RICK DIRECTOR GOVERNMENT Ot L97.222 NON-PRESSURE CHRONIC ULCER OF LEFT CALF 03/13/2018 FRITZ RICK DIRECTOR GOVERNMENT Ot 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 03/14/2018 FRITZ RICK DIRECTOR GOVERNMENT Ot 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 03/14/2018 FRITZ RICK DIRECTOR GOVERNMENT Ot I87.2 VENOUS INSUFFICIENCY (CHRONIC) (PERIPHER 03/14/2018 FRITZ RICK DIRECTOR GOVERNMENT Ot L97.222 NON-PRESSURE CHRONIC ULCER OF LEFT CALF 03/14/2018 FRITZ RICK DIRECTOR GOVERNMENT Ot 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 03/15/2018 FRITZ RICK DIRECTOR GOVERNMENT Ot E11.622 TYPE 2 DIABETES MELLITUS WITH OTHER SKIN 03/15/2018 FRITZ RCIK DIRECTOR GOVERNMENT Ot 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 03/15/2018 FRITZ RICK DIRECTOR GOVERNMENT Ot I87.2 VENOUS INSUFFICIENCY (CHRONIC) (PERIPHER 03/15/2018 FRITZ RICK DIRECTOR GOVERNMENT Ot L97.222 NON-PRESSURE CHRONIC ULCER OF LEFT CALF 03/15/2018 FRITZ RICK DIRECTOR GOVERNMENT Ot 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 03/15/2018 FRITZ RICK DIRECTOR GOVERNMENT Ot M25.772 OSTEOPHYTE, LEFT ANKLE 03/15/2018 FRITZ RICK DIRECTOR GOVERNMENT Ot M77.32 CALCANEAL SPUR, LEFT FOOT 03/21/2018 FRITZ RICK APRN Ot E11.622 TYPE 2 DIABETES MELLITUS WITH OTHER SKIN 03/21/2018 PRABHJOTFRITZ DIRECTOR GOVERNMENT Ot I70.243 ATHSCL [place]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 W [facility] 03/21/2018 FRITZ RICK DIRECTOR GOVERNMENT Ot I87.2 VENOUS INSUFFICIENCY (CHRONIC) (PERIPHER 03/21/2018 FRITZ RICK DIRECTOR GOVERNMENT Ot L97.222 NON-PRESSURE CHRONIC ULCER OF LEFT CALF 03/21/2018 FRITZ RICK DIRECTOR GOVERNMENT Ot 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 03/22/2018 HERNANDEZ ANDERSON APRN Ot G47.30 SLEEP APNEA, UNSPECIFIED 03/23/2018 LUIS ARMANDO MARTINEZ MD Ot E11.622 TYPE 2 DIABETES MELLITUS WITH OTHER SKIN 03/23/2018 LUIS ARMANDO MARTINEZ MD Ot I70.243 ATHSCL [place]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 W [facility] 03/23/2018 LUIS ARMANDO MARTINEZ MD Ot I87.2 VENOUS INSUFFICIENCY (CHRONIC) (PERIPHER 03/23/2018 LUIS ARMANDO MARTINEZ MD Ot L97.222 NON-PRESSURE CHRONIC ULCER OF LEFT CALF 03/23/2018 LUIS ARMANDO MARTINEZ MD Ot 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 03/29/2018 FRITZ RICK DIRECTOR GOVERNMENT Ot E11.622 TYPE 2 DIABETES MELLITUS WITH OTHER SKIN 03/29/2018 FRITZ RICK DIRECTOR GOVERNMENT Ot I70.243 ATHSCL [place]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 W [facility] 03/29/2018 FRITZ RICK DIRECTOR GOVERNMENT Ot I87.2 VENOUS INSUFFICIENCY (CHRONIC) (PERIPHER 03/29/2018 FRITZ RICK R DIRECTOR GOVERNMENT Ot 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 03/30/2018 LUIS ARMANDO MARTINEZ MD Ot E11.622 TYPE 2 DIABETES MELLITUS WITH OTHER SKIN 03/30/2018 LUIS ARMANDO MARTINEZ MD Ot I70.243 ATHSCL [place]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 W [facility] 03/30/2018 LUIS ARMANDO MARTINEZ MD Ot I87.2 VENOUS INSUFFICIENCY (CHRONIC) (PERIPHER 03/30/2018 LUIS ARMANDO MARTINEZ MD Ot L97.222 NON-PRESSURE CHRONIC ULCER OF LEFT CALF 03/30/2018 LUIS ARMANDO MARTINEZ MD Ot 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 04/04/2018 FRITZ RICK DIRECTOR GOVERNMENT Ot I70.243 ATHSCL [place]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 W [facility] 04/04/2018 FRITZ RICK DIRECTOR GOVERNMENT Ot I87.2 VENOUS INSUFFICIENCY (CHRONIC) (PERIPHER 04/04/2018 FRITZ RICK R DIRECTOR GOVERNMENT Ot L97.222 NON-PRESSURE CHRONIC ULCER OF LEFT CALF 04/04/2018 FRITZ RICK R DIRECTOR GOVERNMENT Ot 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 04/04/2018 FRITZ RICK DIRECTOR GOVERNMENT Ot E11.622 TYPE 2 DIABETES MELLITUS WITH OTHER SKIN 04/04/2018 FRITZ RICK R DIRECTOR GOVERNMENT Ot I70.243 ATH[place]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 W [facility] 04/04/2018 PRABHJOT FRITZ R DIRECTOR GOVERNMENT Ot I87.2 VENOUS INSUFFICIENCY (CHRONIC) (PERIPHER 04/04/2018 FRITZ RICK DIRECTOR GOVERNMENT Ot L97.222 NON-PRESSURE CHRONIC ULCER OF LEFT CALF 04/11/2018 FRIZT RICK DIRECTOR GOVERNMENT Ot E11.622 TYPE 2 DIABETES MELLITUS WITH OTHER SKIN 04/11/2018 FRITZ RICK R DIRECTOR GOVERNMENT Ot I70.243 [place]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 W [facility] 04/11/2018 FRITZ RICK R DIRECTOR GOVERNMENT Ot I87.2 VENOUS INSUFFICIENCY (CHRONIC) (PERIPHER 04/11/2018 FRITZ IRCK R DIRECTOR GOVERNMENT Ot L97.222 NON-PRESSURE CHRONIC ULCER OF LEFT CALF 04/11/2018 FRITZ RICK DIRECTOR GOVERNMENT Ot 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 04/18/2018 FRITZ RICK DIRECTOR GOVERNMENT Ot E11.622 TYPE 2 DIABETES MELLITUS WITH OTHER SKIN 04/18/2018 PRABHJOT FRITZ R DIRECTOR GOVERNMENT Ot 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 04/18/2018 PRABHJOT FRITZ R DIRECTOR GOVERNMENT Ot I87.2 VENOUS INSUFFICIENCY (CHRONIC) (PERIPHER 04/18/2018 PRABHJOT, FRITZ R DIRECTOR GOVERNMENT Ot 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 04/18/2018 PRABHJOT FRITZ R DIRECTOR GOVERNMENT Ot E11.622 TYPE 2 DIABETES MELLITUS WITH OTHER SKIN 04/18/2018 PRABHJOT FRITZ R DIRECTOR GOVERNMENT Ot 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 04/18/2018 PRABHJOT, FRITZ R DIRECTOR GOVERNMENT Ot I87.2 VENOUS INSUFFICIENCY (CHRONIC) (PERIPHER 04/18/2018 PRABHJOT FRITZ R DIRECTOR GOVERNMENT Ot L97.222 NON-PRESSURE CHRONIC ULCER OF LEFT CALF 04/18/2018 PRABHJOT FRITZ R DIRECTOR GOVERNMENT Ot 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 04/23/2018 FRITZ RICK R DIRECTOR GOVERNMENT Ot E11.622 TYPE 2 DIABETES MELLITUS WITH OTHER SKIN 04/23/2018 PRABHJOT FRITZ R DIRECTOR GOVERNMENT Ot 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 04/23/2018 PRABHJOT, FRITZ R DIRECTOR GOVERNMENT Ot I87.2 VENOUS INSUFFICIENCY (CHRONIC) (PERIPHER 04/23/2018 PRABHJOT FRITZ R DIRECTOR GOVERNMENT Ot L97.222 NON-PRESSURE CHRONIC ULCER OF LEFT CALF 04/23/2018 PRABHJOT FRITZ R DIRECTOR GOVERNMENT Ot 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 04/25/2018 FRITZ RICK R DIRECTOR GOVERNMENT Ot E11.622 TYPE 2 DIABETES MELLITUS WITH OTHER SKIN 04/25/2018 PRABHJOT FRITZ R DIRECTOR GOVERNMENT Ot 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 04/25/2018 PRABHJOT FRITZ R DIRECTOR GOVERNMENT Ot I87.2 VENOUS INSUFFICIENCY (CHRONIC) (PERIPHER 04/25/2018 PRABHJOT FRITZ R DIRECTOR GOVERNMENT Ot 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 04/30/2018 PRABHJOT FRITZ R DIRECTOR GOVERNMENT Ot E11.622 TYPE 2 DIABETES MELLITUS WITH OTHER SKIN 04/30/2018 FRITZ RICK R DIRECTOR GOVERNMENT Ot I70.243 ATHS[place]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 W C 04/30/2018 PRABHJOT FRITZ R DIRECTOR GOVERNMENT Ot I87.2 VENOUS INSUFFICIENCY (CHRONIC) (PERIPHER 04/30/2018 PRABHJOT FRITZ R DIRECTOR GOVERNMENT Ot L97.222 NON-PRESSURE CHRONIC ULCER OF LEFT CALF 05/01/2018 FRITZ RICK R DIRECTOR GOVERNMENT Ot E11.622 TYPE 2 DIABETES MELLITUS WITH OTHER SKIN 05/01/2018 PRABHJOT, FRITZ R DIRECTOR GOVERNMENT Ot I70.243 ATH[place]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 W [facility] 05/01/2018 PRABHJOT FRITZ R DIRECTOR GOVERNMENT Ot I87.2 VENOUS INSUFFICIENCY (CHRONIC) (PERIPHER 05/01/2018 PRABHJOT FRITZ R DIRECTOR GOVERNMENT Ot 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 05/02/2018 PRABHJOT, FRITZ R DIRECTOR GOVERNMENT Ot E11.622 TYPE 2 DIABETES MELLITUS WITH OTHER SKIN 05/02/2018 PRABHJOT, FRITZ R DIRECTOR GOVERNMENT Ot I70.243 ATHSCL [place]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 W [facility] 05/02/2018 PRABHJOT FRITZ R DIRECTOR GOVERNMENT Ot I87.2 VENOUS INSUFFICIENCY (CHRONIC) (PERIPHER 05/02/2018 PRABHJOT FRITZ R DIRECTOR GOVERNMENT Ot 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 05/02/2018 PRABHJOT FRITZ R DIRECTOR GOVERNMENT Ot E11.622 TYPE 2 DIABETES MELLITUS WITH OTHER SKIN 05/02/2018 PRABHJOT, FRITZ R DIRECTOR GOVERNMENT Ot I70.243 ATH[place]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 W [facility] 05/02/2018 PRABHJOT FRITZ R DIRECTOR GOVERNMENT Ot I87.2 VENOUS INSUFFICIENCY (CHRONIC) (PERIPHER 05/02/2018 PRABHJOT FRITZ R DIRECTOR GOVERNMENT Ot 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 05/04/2018 PRABHJOT FRITZ R DIRECTOR GOVERNMENT Ot E11.622 TYPE 2 DIABETES MELLITUS WITH OTHER SKIN 05/04/2018 PRABHJOT FRITZ R DIRECTOR GOVERNMENT Ot I70.243 ATH[place]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 W [facility] 05/04/2018 PRABHJOT, FRITZ R DIRECTOR GOVERNMENT Ot I87.2 VENOUS INSUFFICIENCY (CHRONIC) (PERIPHER 05/04/2018 PRABHJOT FRITZ R DIRECTOR GOVERNMENT Ot L97.222 NON-PRESSURE CHRONIC ULCER OF LEFT CALF 05/04/2018 PRABHJOT FRITZ R DIRECTOR GOVERNMENT Ot 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 05/07/2018 PRABHJOT FRITZ R DIRECTOR GOVERNMENT Ot I70.243 ATH[place]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 W [facility] 05/07/2018 PRABHJOT, FRITZ R DIRECTOR GOVERNMENT Ot I87.2 VENOUS INSUFFICIENCY (CHRONIC) (PERIPHER 05/07/2018 PRABHJOT, FRITZ R DIRECTOR GOVERNMENT Ot L97.222 NON-PRESSURE CHRONIC ULCER OF LEFT CALF 05/07/2018 PRABHJOT, FRITZ R DIRECTOR GOVERNMENT Ot 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 05/07/2018 PRABHJOT, FRITZ R DIRECTOR GOVERNMENT Ot E11.622 TYPE 2 DIABETES MELLITUS WITH OTHER SKIN 05/07/2018 PRABHJOT, FRITZ R DIRECTOR GOVERNMENT Ot I70.243 ATHSCL [place]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 W [facility] 05/07/2018 PRABHJOT, FRITZ R DIRECTOR GOVERNMENT Ot I87.2 VENOUS INSUFFICIENCY (CHRONIC) (PERIPHER 05/07/2018 PRABHJOT, FRITZ R DIRECTOR GOVERNMENT Ot 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 05/12/2018 PRABHJOT FRITZ R DIRECTOR GOVERNMENT Ot E11.622 TYPE 2 DIABETES MELLITUS WITH OTHER SKIN 05/12/2018 PRABHJOT, FRITZ R DIRECTOR GOVERNMENT Ot I70.243 ATH[place]CL [place]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 W [facility] 05/12/2018 PRABHJOT, FRITZ R DIRECTOR GOVERNMENT Ot I87.2 VENOUS INSUFFICIENCY (CHRONIC) (PERIPHER 05/12/2018 PRABHJOT, FRITZ R DIRECTOR GOVERNMENT Ot L97.222 NON-PRESSURE CHRONIC ULCER OF LEFT CALF 05/12/2018 PRABHJOT FRITZ R DIRECTOR GOVERNMENT Ot 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 05/12/2018 PRABHJOT FRITZ R DIRECTOR GOVERNMENT Ot E11.622 TYPE 2 DIABETES MELLITUS WITH OTHER SKIN 05/12/2018 PRABHJOT, FRITZ R DIRECTOR GOVERNMENT Ot I70.243 A[place]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 W [facility] 05/12/2018 PRABHJOT FRITZ R DIRECTOR GOVERNMENT Ot I87.2 VENOUS INSUFFICIENCY (CHRONIC) (PERIPHER 05/12/2018 PRABHJOT FRITZ R DIRECTOR GOVERNMENT Ot 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-PRESSURE CHRONIC ULCER OF LEFT [...] MD Ot I25.10 ATHSCL HEART DISEASE OF [place] CORONARY 05/14/2018 ANN ALEX MD Ot I73.9 PERIPHERAL VASCULAR DISEASE, UNSPECIFIED 05/14/2018 ANN ALEX MD Ot K21.9 GASTRO-ESOPHAGEAL REFLUX DISEASE WITHOUT 05/14/2018 ANN ALEX MD Ot M62.81 MUSCLE WEAKNESS (GENERALIZED) 05/14/2018 ANN ALEX MD, Ot N39.0 URINARY TRACT INFECTION, SITE NOT SPECIF 05/14/2018 ANN ALEX MD Ot R20.0 ANESTHESIA OF SKIN 05/14/2018 ANN ALEX MD Ot R20.2 PARESTHESIA OF SKIN 05/14/2018 ANN ALEX MD Ot Z79.01 FOSTER WINDER (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 OF ANTICOAGULANT 05/14/2018 ANN ALEX MD Ot Z79.02 FOSTER WINDER (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 OF ANTITHROMBOTI 05/14/2018 ANN ALEX MD Ot Z79.4 PENITENTIARY (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 OF INSULIN 05/14/2018 ANN ALEX MD Ot Z79.82 PENITENTIARY (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 OF ASPIRIN 05/14/2018 ANN ALEX MD Ot Z82.49 FAMILY HX OF ISCHEM HEART DIS AND OTH DI 05/14/2018 ANN ALEX MD Ot Z87.01 PERSONAL HISTORY OF PNEUMONIA (RECURRENT 05/14/2018 ANN ALEX MD Ot Z87.19 PERSONAL HISTORY OF OTHER DISEASES OF TH 05/14/2018 ANN ALEX MD, Ot Z87.440 PERSONAL HISTORY OF URINARY (TRACT) INFE 05/14/2018 ANN ALEX MD Ot Z87.442 PERSONAL HISTORY OF URINARY CALCULI 05/14/2018 ANN ALEX MD Ot Z87.891 PERSONAL HISTORY OF NICOTINE DEPENDENCE 05/14/2018 ANN ALEX MD Ot Z88.5 ALLERGY STATUS TO NARCOTIC AGENT STATUS 05/14/2018 ANN ALEX MD, Ot Z95.1 PRESENCE OF AORTOCORONARY BYPASS GRAFT 05/17/2018 ANN ALEX MD, Ot E03.9 HYPOTHYROIDISM, UNSPECIFIED 05/17/2018 ANN ALEX MD Ot E11.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 05/17/2018 ANN ALEX MD, Ot E78.00 PURE HYPERCHOLESTEROLEMIA, UNSPECIFIED 05/17/2018 ANN ALEX MD Ot F32.9 MAJOR DEPRESSIVE DISORDER, SINGLE EPISOD 05/17/2018 ANN ALEX MD, Ot F41.9 ANXIETY DISORDER, UNSPECIFIED 05/17/2018 ANN ALEX MD, Ot G47.30 SLEEP APNEA, UNSPECIFIED 05/17/2018 ANN ALEX MD, Ot I10 ESSENTIAL (PRIMARY) HYPERTENSION 05/17/2018 ANN ALEX MD, Ot I25.10 ATHSCL HEART DISEASE OF [place] CORONARY 05/17/2018 ANN ALEX MD Ot I73.9 PERIPHERAL VASCULAR DISEASE, UNSPECIFIED 05/17/2018 ANN ALEX MD, Ot K21.9 GASTRO-ESOPHAGEAL REFLUX DISEASE WITHOUT 05/17/2018 ANN ALEX MD Ot M62.81 MUSCLE WEAKNESS (GENERALIZED) 05/17/2018 ANN ALEX MD Ot N39.0 URINARY TRACT INFECTION, SITE NOT SPECIF 05/17/2018 ANN ALEX MD Ot R20.0 ANESTHESIA OF SKIN 05/17/2018 ANN ALEX MD Ot R20.2 PARESTHESIA OF SKIN 05/17/2018 ANN ALEX MD Ot Z79.01 FOSTER WINDER (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 OF ANTICOAGULANT 05/17/2018 ANN ALEX MD Ot Z79.02 FOSTER WINDER (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 OF ANTITHROMBOTI 05/17/2018 ANN ALEX MD Ot Z79.4 PENITENTIARY (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 OF INSULIN 05/17/2018 ANN ALEX MD Ot Z79.82 FOSTER WINDER (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 OF ASPIRIN 05/17/2018 ANN ALEX MD Ot Z82.49 FAMILY HX [...] MELLITUS WITH OTHER SKIN 05/17/2018 FRITZ RICK DIRECTOR GOVERNMENT Ot I70.243 [place]THSCL [place]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 W [facility] 05/17/2018 FRITZ RICK DIRECTOR GOVERNMENT Ot I87.2 VENOUS INSUFFICIENCY (CHRONIC) (PERIPHER 05/17/2018 FRITZ RICK DIRECTOR GOVERNMENT Ot 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 05/18/2018 FRITZ RICK APRN Ot E11.622 TYPE 2 DIABETES MELLITUS WITH OTHER SKIN 05/18/2018 FRITZ RICK DIRECTOR GOVERNMENT Ot I70.243 ATHSCL [place]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 W [facility] 05/18/2018 FRITZ RICK DIRECTOR GOVERNMENT Ot I87.2 VENOUS INSUFFICIENCY (CHRONIC) (PERIPHER 05/18/2018 FRITZ RICK APRN Ot L97.222 NON-PRESSURE CHRONIC ULCER OF LEFT CALF 05/18/2018 FRITZ RICK DIRECTOR GOVERNMENT Ot 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 05/20/2018 ANN ALEX MD Ot E03.9 HYPOTHYROIDISM, UNSPECIFIED 05/20/2018 ANN ALEX MD, Ot E11.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 05/20/2018 ANN ALEX MD, Ot E78.00 PURE HYPERCHOLESTEROLEMIA, UNSPECIFIED 05/20/2018 ANN ALEX MD, Ot F32.9 MAJOR DEPRESSIVE DISORDER, SINGLE EPISOD 05/20/2018 ANN ALEX MD, Ot F41.9 ANXIETY DISORDER, UNSPECIFIED 05/20/2018 ANN ALEX MD, Ot G47.30 SLEEP APNEA, UNSPECIFIED 05/20/2018 ANN ALEX MD, Ot I10 ESSENTIAL (PRIMARY) HYPERTENSION 05/20/2018 ANN ALEX MD, Ot I25.10 ATHSCL HEART DISEASE OF [place] CORONARY 05/20/2018 ANN ALEX MD, Ot I73.9 PERIPHERAL VASCULAR DISEASE, UNSPECIFIED 05/20/2018 ANN ALEX MD, Ot K21.9 GASTRO-ESOPHAGEAL REFLUX DISEASE WITHOUT 05/20/2018 ANN ALEX MD, Ot M62.81 MUSCLE WEAKNESS (GENERALIZED) 05/20/2018 ANN ALEX MD, Ot N39.0 URINARY TRACT INFECTION, SITE NOT SPECIF 05/20/2018 ANN ALEX MD, Ot R20.0 ANESTHESIA OF SKIN 05/20/2018 ANN ALEX MD, Ot R20.2 PARESTHESIA OF SKIN 05/20/2018 ANN ALEX MD Ot Z79.01 FOSTER WINDER (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 OF ANTICOAGULANT 05/20/2018 ANN ALEX MD Ot Z79.02 FOSTER WINDER (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 OF ANTITHROMBOTI 05/20/2018 ANN ALEX MD Ot Z79.4 PENITENTIARY (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 OF INSULIN 05/20/2018 ANN ALEX MD Ot Z79.82 PENITENTIARY (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 OF ASPIRIN 05/20/2018 ANN ALEX MD Ot Z82.49 FAMILY HX OF ISCHEM HEART DIS AND OTH DI 05/20/2018 ANN ALEX MD Ot Z87.01 PERSONAL HISTORY OF PNEUMONIA (RECURRENT 05/20/2018 ANN ALEX MD Ot Z87.19 PERSONAL HISTORY OF OTHER DISEASES OF TH 05/20/2018 ANN ALEX MD, Ot Z87.440 PERSONAL HISTORY OF URINARY (TRACT) INFE 05/20/2018 ANN ALEX MD Ot Z87.442 PERSONAL HISTORY OF URINARY CALCULI 05/20/2018 ANN ALEX MD, Ot Z87.891 PERSONAL HISTORY OF NICOTINE DEPENDENCE 05/20/2018 ANN ALEX MD Ot Z88.5 ALLERGY STATUS TO NARCOTIC AGENT STATUS 05/20/2018 ANN ALEX MD Ot Z95.1 PRESENCE OF AORTOCORONARY BYPASS GRAFT 05/21/2018 PRABHJOTFRITZ R DIRECTOR GOVERNMENT Ot E11.622 TYPE 2 DIABETES MELLITUS WITH OTHER SKIN 05/21/2018 PRABHJOT FRITZ R DIRECTOR GOVERNMENT Ot I70.243 ATHSCL [place]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 W [facility] 05/21/2018 PRABHJOT, FRITZ R DIRECTOR GOVERNMENT Ot I87.2 VENOUS INSUFFICIENCY (CHRONIC) (PERIPHER 05/21/2018 PRABHJOT, FRITZ R DIRECTOR GOVERNMENT Ot 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 05/23/2018 PRABHJOT FRITZ R DIRECTOR GOVERNMENT Ot E11.622 TYPE 2 DIABETES MELLITUS WITH OTHER SKIN 05/23/2018 PRABHJOT, FRITZ R DIRECTOR GOVERNMENT Ot I70.243 ATHSCL [place]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 W [facility] 05/23/2018 PRABHJOT, FRITZ R DIRECTOR GOVERNMENT Ot I87.2 VENOUS INSUFFICIENCY (CHRONIC) (PERIPHER 05/23/2018 PRABHJOT FRITZ R DIRECTOR GOVERNMENT Ot 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 05/29/2018 PRABHJOT FRITZ R DIRECTOR GOVERNMENT Ot E11.622 TYPE 2 DIABETES MELLITUS WITH OTHER SKIN 05/29/2018 PRABHJOT, FRITZ R DIRECTOR GOVERNMENT Ot I70.243 ATHSCL [place]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 W [facility] 05/29/2018 PRABHJOT, FRITZ R DIRECTOR GOVERNMENT Ot I87.2 VENOUS INSUFFICIENCY (CHRONIC) (PERIPHER 05/29/2018 PRABHJOT FRITZ R DIRECTOR GOVERNMENT Ot 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 06/04/2018 HERNANDEZ ANDERSON DIRECTOR GOVERNMENT Ot G47.30 SLEEP APNEA, UNSPECIFIED 06/28/2018 HERNANDEZ ANDERSON DIRECTOR GOVERNMENT Ot G47.30 SLEEP APNEA, UNSPECIFIED 06/28/2018 HERNANDEZ ANDERSON DIRECTOR GOVERNMENT Ot G47.30 SLEEP APNEA, UNSPECIFIED 06/29/2018 HERNANDEZ ANDERSON DIRECTOR GOVERNMENT Ot G47.33 OBSTRUCTIVE SLEEP APNEA (ADULT) (PEDIATR 06/29/2018 HERNANDEZ ANDERSON DIRECTOR GOVERNMENT Ot G47.61 PERIODIC LIMB MOVEMENT DISORDER 06/29/2018 HERNANDEZ ANDERSON DIRECTOR GOVERNMENT Ot R09.02 HYPOXEMIA 07/06/2018 HERNANDEZ ANDERSON DIRECTOR GOVERNMENT Ot G47.33 OBSTRUCTIVE SLEEP APNEA (ADULT) (PEDIATR 07/06/2018 HERNANDEZ ANDERSON DIRECTOR GOVERNMENT Ot G47.61 PERIODIC LIMB MOVEMENT DISORDER 07/06/2018 HERNANDEZ ANDERSON APRN Ot R09.02 HYPOXEMIA 07/25/2018 LEAH ESPINAL, LIU Gallagher Ot E03.9 HYPOTHYROIDISM, UNSPECIFIED 07/25/2018 FRITZ RICK DIRECTOR GOVERNMENT Ot E11.622 TYPE 2 DIABETES MELLITUS WITH OTHER SKIN 07/25/2018 FRITZ RICK R DIRECTOR GOVERNMENT Ot I87.2 VENOUS INSUFFICIENCY (CHRONIC) (PERIPHER 07/25/2018 PRABHJOT FRITZ R DIRECTOR GOVERNMENT Ot L97.222 NON-PRESSURE CHRONIC ULCER OF LEFT CALF 07/25/2018 PRABHJOT FRITZ R DIRECTOR GOVERNMENT Ot 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 07/25/2018 FRITZ RICK DIRECTOR GOVERNMENT Ot E11.622 TYPE 2 DIABETES MELLITUS WITH OTHER SKIN 07/25/2018 PRABHJOT FRITZ R DIRECTOR GOVERNMENT Ot I70.242 ATHSCL [place]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 W [facility] 07/25/2018 FRITZ RICK DIRECTOR GOVERNMENT Ot I87.2 VENOUS INSUFFICIENCY (CHRONIC) (PERIPHER 07/25/2018 PRABHJOT FRITZ R DIRECTOR GOVERNMENT Ot L97.222 NON-PRESSURE CHRONIC ULCER OF LEFT CALF 07/25/2018 PRABHJOT FRITZ R DIRECTOR GOVERNMENT Ot 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 07/25/2018 PRABHJOT FRITZ R DIRECTOR GOVERNMENT Ot E11.622 TYPE 2 DIABETES MELLITUS WITH OTHER SKIN 07/25/2018 SHINE RICKN R DIRECTOR GOVERNMENT Ot I70.242 ATHSCL [place]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 W [facility] 07/25/2018 FRITZ RICK DIRECTOR GOVERNMENT Ot I87.2 VENOUS INSUFFICIENCY (CHRONIC) (PERIPHER 07/25/2018 FRITZ RICK R DIRECTOR GOVERNMENT Ot L97.222 NON-PRESSURE CHRONIC ULCER OF LEFT CALF 07/25/2018 FRITZ RICK R DIRECTOR GOVERNMENT Ot 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 07/25/2018 MICHELLE ESPINAL, LUIS ARMANDO Riddle Ot E11.622 TYPE 2 DIABETES MELLITUS WITH OTHER SKIN 07/25/2018 LUIS ARMANDO MARTINEZ MD Ot I70.243 ATHSCL [place]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 W [facility] 07/25/2018 LUIS ARMANDO MARTINEZ MD Ot I87.2 VENOUS INSUFFICIENCY (CHRONIC) (PERIPHER 07/25/2018 LUIS ARMANDO MARTINEZ MD Ot L97.222 NON-PRESSURE CHRONIC ULCER OF LEFT CALF 07/25/2018 LUIS ARMANDO MARTINEZ MD Ot 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 07/25/2018 FRITZ RICK DIRECTOR GOVERNMENT Ot I70.243 ATHSCL [place]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 W [facility] 07/25/2018 FRITZ RICK R DIRECTOR GOVERNMENT Ot I87.2 VENOUS INSUFFICIENCY (CHRONIC) (PERIPHER 07/25/2018 PRABHJOT FRITZ R DIRECTOR GOVERNMENT Ot L97.222 NON-PRESSURE CHRONIC ULCER OF LEFT CALF 07/25/2018 FRITZ RICK R DIRECTOR GOVERNMENT Ot 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 07/25/2018 FRITZ RICK R DIRECTOR GOVERNMENT Ot E11.622 TYPE 2 DIABETES MELLITUS WITH OTHER SKIN 07/25/2018 PRABHJOT FRITZ R DIRECTOR GOVERNMENT Ot I70.243 ATHSCL [place]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 W [facility] 07/25/2018 PRABHJOT FRITZ R DIRECTOR GOVERNMENT Ot I87.2 VENOUS INSUFFICIENCY (CHRONIC) (PERIPHER 07/25/2018 PRABHJOT FRITZ R DIRECTOR GOVERNMENT Ot L97.222 NON-PRESSURE CHRONIC ULCER OF LEFT CALF 07/25/2018 PRABHJOT FRITZ R DIRECTOR GOVERNMENT Ot 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 07/25/2018 PRABHJOT FRITZ R DIRECTOR GOVERNMENT Ot M25.772 OSTEOPHYTE, LEFT ANKLE 07/25/2018 PRABHJOT FRITZ R DIRECTOR GOVERNMENT Ot M77.32 CALCANEAL SPUR, LEFT FOOT 07/25/2018 FRITZ RICK DIRECTOR GOVERNMENT Ot E11.622 TYPE 2 DIABETES MELLITUS WITH OTHER SKIN 07/25/2018 FRITZ RICK DIRECTOR GOVERNMENT Ot I70.243 ATHSCL [place]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 W [facility] 07/25/2018 PRABHJOT FRITZ R DIRECTOR GOVERNMENT Ot I87.2 VENOUS INSUFFICIENCY (CHRONIC) (PERIPHER 07/25/2018 FRITZ RICK R DIRECTOR GOVERNMENT Ot L97.222 NON-PRESSURE CHRONIC ULCER OF LEFT CALF 07/25/2018 FRITZ RICK DIRECTOR GOVERNMENT Ot 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 07/25/2018 FRITZ RICK DIRECTOR GOVERNMENT Ot E11.622 TYPE 2 DIABETES MELLITUS WITH OTHER SKIN 07/25/2018 PRABHJOTFRITZ DIRECTOR GOVERNMENT Ot I70.243 ATHSCL [place]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 W [facility] 07/25/2018 FRITZ RICK R DIRECTOR GOVERNMENT Ot I87.2 VENOUS INSUFFICIENCY (CHRONIC) (PERIPHER 07/25/2018 FRITZ RICK R DIRECTOR GOVERNMENT Ot 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 07/25/2018 FRITZ RICK DIRECTOR GOVERNMENT Ot E11.622 TYPE 2 DIABETES MELLITUS WITH OTHER SKIN 07/25/2018 FRITZ RICK DIRECTOR GOVERNMENT Ot I70.243 ATHSCL [place]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 W [facility] 07/25/2018 PRABHJOT FRITZ R DIRECTOR GOVERNMENT Ot I87.2 VENOUS INSUFFICIENCY (CHRONIC) (PERIPHER 07/25/2018 PRABHJOT FRITZ R DIRECTOR GOVERNMENT Ot L97.222 NON-PRESSURE CHRONIC ULCER OF LEFT CALF 07/25/2018 FRITZ RICK DIRECTOR GOVERNMENT Ot E11.622 TYPE 2 DIABETES MELLITUS WITH OTHER SKIN 07/25/2018 FRITZ RICK R DIRECTOR GOVERNMENT Ot I70.243 ATHSCL [place]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 W [facility] 07/25/2018 FRITZ RICK DIRECTOR GOVERNMENT Ot I87.2 VENOUS INSUFFICIENCY (CHRONIC) (PERIPHER 07/25/2018 FRITZ RICK R DIRECTOR GOVERNMENT Ot L97.222 NON-PRESSURE CHRONIC ULCER OF LEFT CALF 07/25/2018 FRITZ RICK R DIRECTOR GOVERNMENT Ot 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 07/25/2018 FRITZ RICK R DIRECTOR GOVERNMENT Ot E11.622 TYPE 2 DIABETES MELLITUS WITH OTHER SKIN 07/25/2018 FRITZ RICK R DIRECTOR GOVERNMENT Ot I70.243 ATHSCL [place]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 W [facility] 07/25/2018 FRITZ RICK DIRECTOR GOVERNMENT Ot I87.2 VENOUS INSUFFICIENCY (CHRONIC) (PERIPHER 07/25/2018 FRITZ RICK R DIRECTOR GOVERNMENT Ot L97.222 NON-PRESSURE CHRONIC ULCER OF LEFT CALF 07/25/2018 PRABHJOT FRITZ R DIRECTOR GOVERNMENT Ot 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 07/25/2018 FRITZ RICK DIRECTOR GOVERNMENT Ot E11.622 TYPE 2 DIABETES MELLITUS WITH OTHER SKIN 07/25/2018 FRITZ RICK R DIRECTOR GOVERNMENT Ot I70.243 ATHSCL [place]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 W [facility] 07/25/2018 FRITZ RICK R DIRECTOR GOVERNMENT Ot I87.2 VENOUS INSUFFICIENCY (CHRONIC) (PERIPHER 07/25/2018 FRITZ RICK R DIRECTOR GOVERNMENT Ot 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 07/25/2018 FRITZ RICK DIRECTOR GOVERNMENT Ot E11.622 TYPE 2 DIABETES MELLITUS WITH OTHER SKIN 07/25/2018 FRITZ RICK APRN Ot 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 07/25/2018 FRITZ RICK APRN Ot I87.2 VENOUS INSUFFICIENCY (CHRONIC) (PERIPHER 07/25/2018 FRITZ RICK APRN Ot 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 08/01/2018 CESAR BORJA MD, Ot Z01.818 ENCOUNTER FOR OTHER PREPROCEDURAL EXAMIN 08/03/2018 CESAR BORJA MD, Ot E11.36 TYPE 2 DIABETES MELLITUS WITH DIABETIC C 08/03/2018 CESAR BORJA MD, Ot E11.41 TYPE 2 DIABETES MELLITUS WITH DIABETIC M 08/03/2018 CESAR BORJA MD, Ot E66.01 MORBID (SEVERE) OBESITY DUE TO EXCESS CA 08/03/2018 CESAR BORJA MD, Ot G47.33 OBSTRUCTIVE SLEEP APNEA (ADULT) (PEDIATR 08/03/2018 CESAR BORJA MD, Ot H25.11 AGE-RELATED NUCLEAR CATARACT, RIGHT EYE 08/03/2018 CESAR BORJA MD, Ot I10 ESSENTIAL (PRIMARY) HYPERTENSION 08/03/2018 CESAR BORJA MD, Ot I25.10 ATHSCL HEART DISEASE OF [place] CORONARY 08/03/2018 CESAR BORJA MD, Ot Z68.41 BODY MASS INDEX (BMI) 40.0-44.9, ADULT 08/03/2018 CESAR BORJA MD, Ot Z79.01 FOSTER WINDER (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 OF ANTICOAGULANT 08/03/2018 CESAR BORJA MD, Ot Z79.4 PENITENTIARY (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 OF INSULIN 08/03/2018 CESAR BORJA MD, Ot Z79.82 PENITENTIARY (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 OF ASPIRIN 08/03/2018 CESAR BORJA MD, Ot Z79.899 OTHER FOSTER WINDER (CURRENT) DRUG THERAPY 08/03/2018 CESAR BORJA MD, Ot Z86.73 PRSNL HX OF TIA (TIA), AND CEREB INFRC W 08/03/2018 CESAR BORJA MD, Ot Z87.891 PERSONAL HISTORY OF NICOTINE DEPENDENCE 08/03/2018 CESAR BORJA MD, Ot Z95.1 PRESENCE OF AORTOCORONARY BYPASS GRAFT 08/06/2018 CESAR BORJA MD, Ot E11.36 TYPE [...] MD, Ot I25.10 ATHSCL HEART DISEASE OF [place] CORONARY 08/06/2018 CESAR BORJA MD, Ot Z68.41 BODY MASS INDEX (BMI) 40.0-44.9, ADULT 08/06/2018 CESAR BORJA MD, Ot Z79.01 FOSTER WINDER (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 OF ANTICOAGULANT 08/06/2018 CESAR BORJA MD, Ot Z79.4 PENITENTIARY (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 OF INSULIN 08/06/2018 CESAR BORJA MD, Ot Z79.82 FOSTER WINDER (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 OF ASPIRIN 08/06/2018 CESAR BORJA MD, Ot Z79.899 OTHER PENITENTIARY (CURRENT) DRUG THERAPY 08/06/2018 CESAR BORJA MD, Ot Z86.73 PRSNL HX OF TIA (TIA), AND CEREB INFRC W 08/06/2018 CESAR BORJA MD, Ot Z87.891 PERSONAL HISTORY OF NICOTINE DEPENDENCE 08/06/2018 CESAR BORJA MD, Ot Z95.1 PRESENCE OF AORTOCORONARY BYPASS GRAFT 08/08/2018 CESAR BORJA MD, Ot E11.9 TYPE 2 DIABETES MELLITUS WITHOUT COMPLIC 08/08/2018 CESAR BORJA MD, Ot E66.01 MORBID (SEVERE) OBESITY DUE TO EXCESS CA 08/08/2018 CESAR BORJA MD, Ot H25.12 AGE-RELATED NUCLEAR CATARACT, LEFT EYE 08/08/2018 CESAR BORJA MD, Ot I25.10 ATHSCL HEART DISEASE OF [place] CORONARY 08/08/2018 CESAR BORJA MD, Ot Z68.41 BODY MASS INDEX (BMI) 40.0-44.9, ADULT 08/08/2018 CESAR BORJA MD, Ot Z79.01 PENITENTIARY (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 OF ANTICOAGULANT 08/08/2018 CESAR BORJA MD, Ot Z79.82 FOSTER WINDER (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 OF ASPIRIN 08/08/2018 CESAR BORJA MD, Ot Z79.899 OTHER PENITENTIARY (CURRENT) DRUG THERAPY 08/08/2018 CESAR BORJA MD, Ot Z86.73 PRSNL HX OF TIA (TIA), AND CEREB INFRC W 08/08/2018 CESAR BORJA MD, Ot Z95.1 PRESENCE OF AORTOCORONARY BYPASS GRAFT 08/09/2018 CESAR BORJA MD Ot E11.36 TYPE 2 DIABETES MELLITUS WITH DIABETIC C 08/09/2018 CESAR BORJA MD, Ot E11.41 TYPE 2 DIABETES MELLITUS WITH DIABETIC M 08/09/2018 CESAR BORJA MD, Ot E66.01 MORBID (SEVERE) OBESITY DUE TO EXCESS CA 08/09/2018 CESAR BORJA MD, Ot G47.33 OBSTRUCTIVE SLEEP APNEA (ADULT) (PEDIATR 08/09/2018 CESAR BORJA MD, Ot H25.11 AGE-RELATED NUCLEAR CATARACT, RIGHT EYE 08/09/2018 CESAR BORJA MD Ot I10 ESSENTIAL (PRIMARY) HYPERTENSION 08/09/2018 CESAR BORJA MD, Ot I25.10 ATHSCL HEART DISEASE OF [place] CORONARY 08/09/2018 CESAR BORJA MD, Ot Z68.41 BODY MASS INDEX (BMI) 40.0-44.9, ADULT 08/09/2018 CESAR BORJA MD, Ot Z79.01 FOSTER WINDER (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 OF ANTICOAGULANT 08/09/2018 CESAR BORJA MD Ot Z79.4 PENITENTIARY (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 OF INSULIN 08/09/2018 CESAR BORJA MD, Ot Z79.82 FOSTER WINDER (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 OF ASPIRIN 08/09/2018 ANLIKER MD, CESAR L Ot Z79.899 OTHER FOSTER WINDER (CURRENT) DRUG THERAPY 08/09/2018 CESAR BORJA MD Ot Z86.73 PRSNL HX OF TIA (TIA), AND CEREB INFRC W 08/09/2018 CESAR BORJA MD Ot Z87.891 PERSONAL HISTORY OF NICOTINE DEPENDENCE 08/09/2018 CESAR BORJA MD Ot Z95.1 PRESENCE OF AORTOCORONARY BYPASS GRAFT 08/10/2018 CESAR BORJA MD, Ot E11.9 TYPE 2 DIABETES MELLITUS WITHOUT COMPLIC 08/10/2018 CESAR BORJA MD, Ot E66.01 MORBID (SEVERE) OBESITY DUE TO EXCESS CA 08/10/2018 CESAR BORJA MD Ot H25.12 AGE-RELATED NUCLEAR CATARACT, LEFT EYE 08/10/2018 CESAR BORJA MD Ot I25.10 ATHSCL HEART DISEASE OF [place] CORONARY 08/10/2018 CESAR BORJA MD Ot Z79.01 FOSTER WINDER (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 OF ANTICOAGULANT 08/10/2018 CESAR BORJA MD Ot Z79.82 PENITENTIARY (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 OF ASPIRIN 08/10/2018 CESAR BORJA MD, Ot Z79.899 OTHER PENITENTIARY (CURRENT) DRUG THERAPY 08/10/2018 CESAR BORJA MD, Ot Z86.73 PRSNL HX OF TIA (TIA), AND CEREB INFRC W 08/10/2018 CESAR BORJA MD Ot Z95.1 PRESENCE OF AORTOCORONARY BYPASS GRAFT 08/10/2018 CESAR BORJA MD, Ot E11.9 TYPE 2 DIABETES MELLITUS WITHOUT COMPLIC 08/10/2018 CESAR BORJA MD Ot E66.01 MORBID (SEVERE) OBESITY DUE TO EXCESS CA 08/10/2018 CESAR BORJA MD Ot H25.12 AGE-RELATED NUCLEAR CATARACT, LEFT EYE 08/10/2018 CESAR BORJA MD Ot I25.10 ATHSCL HEART DISEASE OF [place] CORONARY 08/10/2018 CESAR BORJA MD, Ot Z79.01 FOSTER WINDER (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 OF ANTICOAGULANT 08/10/2018 CESAR BORJA MD Ot Z79.82 PENITENTIARY (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 OF ASPIRIN 08/10/2018 CESAR BORJA MD, Ot Z79.899 OTHER PENITENTIARY (CURRENT) DRUG THERAPY 08/10/2018 CESAR BORJA MD, Ot Z86.73 PRSNL HX OF TIA (TIA), AND CEREB INFRC W 08/10/2018 CESAR BORJA MD Ot Z95.1 PRESENCE OF AORTOCORONARY BYPASS GRAFT 08/10/2018 CESAR BORJA MD Ot E11.9 TYPE 2 DIABETES MELLITUS WITHOUT COMPLIC 08/10/2018 CESAR BORJA MD Ot E66.01 MORBID (SEVERE) OBESITY DUE TO EXCESS CA 08/10/2018 CESAR BORJA MD, Ot H25.12 AGE-RELATED NUCLEAR CATARACT, LEFT EYE 08/10/2018 CESAR BORJA MD, Ot I25.10 ATHSCL HEART DISEASE OF [place] CORONARY 08/10/2018 CESAR BORJA MD Ot Z68.41 BODY MASS INDEX (BMI) 40.0-44.9, ADULT 08/10/2018 CESAR BORJA MD, Ot Z79.01 FOSTER WINDER (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 OF ANTICOAGULANT 08/10/2018 CESAR BORJA MD Ot Z79.82 FOSTER WINDER (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 OF ASPIRIN 08/10/2018 CESAR BORJA MD, Ot Z79.899 OTHER FOSTER WINDER (CURRENT) DRUG THERAPY 08/10/2018 CESAR BORJA MD, Ot Z86.73 PRSNL HX OF TIA (TIA), AND CEREB INFRC W 08/10/2018 CESAR BORJA MD Ot Z95.1 PRESENCE OF AORTOCORONARY BYPASS GRAFT 08/14/2018 TIAN RIVERA MD Ot E03.9 HYPOTHYROIDISM, UNSPECIFIED 08/14/2018 TIAN RIVERA MD Ot E11.9 TYPE 2 DIABETES MELLITUS WITHOUT COMPLIC 08/14/2018 TIAN RIVERA MD Ot E78.2 MIXED HYPERLIPIDEMIA 08/14/2018 TIAN RIVERA MD Ot I25.10 ATHSCL HEART DISEASE OF [place] CORONARY 08/14/2018 TIAN RIVERA MD Ot J44.9 CHRONIC OBSTRUCTIVE PULMONARY DISEASE, U 08/15/2018 JANNY GUO W 296.24 MAJOR DEPRESSIVE DISORDER, SINGLE EPISODE, SEVERE DEGREE, SPECIFIED WITH PSYCHOTIC BEHAVIOR 08/15/2018 JANNY GUO W F32.3 MAJOR DEPRESSIVE DISORDER, SINGLE EPISODE, SEVERE WITH PSYCHOTIC FEATURES 08/15/2018 JANNY GUO W 290.41 VASCULAR DEMENTIA, WITH DELIRIUM 08/15/2018 JANNY GUO W 296.24 MAJOR DEPRESSIVE DISORDER, SINGLE EPISODE, SEVERE DEGREE, SPECIFIED WITH PSYCHOTIC BEHAVIOR 08/15/2018 JANNY GUO W F01.51 VASCULAR DEMENTIA WITH BEHAVIORAL DISTURBANCE 08/15/2018 JANNY GUO W F32.3 MAJOR DEPRESSIVE DISORDER, SINGLE EPISODE, SEVERE WITH PSYCHOTIC FEATURES 09/03/2018 FRITZ RICK APRN Ot 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 09/03/2018 FRITZ RICK APRN Ot I87.2 VENOUS INSUFFICIENCY (CHRONIC) (PERIPHER 09/03/2018 FRITZ RICK DIRECTOR GOVERNMENT Ot L97.222 NON-PRESSURE CHRONIC ULCER OF LEFT CALF 09/03/2018 FRITZ RICK DIRECTOR GOVERNMENT Ot 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 09/05/2018 HERNANDEZ ANDERSON DIRECTOR GOVERNMENT Ot G47.33 OBSTRUCTIVE SLEEP APNEA (ADULT) (PEDIATR 09/05/2018 HERNANDEZ ANDERSON DIRECTOR GOVERNMENT Ot G47.34 IDIO SLEEP RELATED NONOBSTRUCTIVE ALVEOL 09/05/2018 HERNANDEZ ANDERSON DIRECTOR GOVERNMENT Ot I51.7 CARDIOMEGALY 09/05/2018 HERNANDEZ ANDERSON DIRECTOR GOVERNMENT Ot J30.9 ALLERGIC RHINITIS, UNSPECIFIED 09/05/2018 HERNANDEZ ANEDRSON DIRECTOR GOVERNMENT Ot G47.33 OBSTRUCTIVE SLEEP APNEA (ADULT) (PEDIATR 09/05/2018 HERNANDEZ ANDERSON DIRECTOR GOVERNMENT Ot G47.34 IDIO SLEEP RELATED NONOBSTRUCTIVE ALVEOL 09/05/2018 HERNANDEZ ANDERSON DIRECTOR GOVERNMENT Ot I51.7 CARDIOMEGALY 09/05/2018 HERNANDEZ ANDERSON DIRECTOR GOVERNMENT Ot J30.9 ALLERGIC RHINITIS, UNSPECIFIED Procedures Code Description [place] [address] LIPID PANEL 03/14/2012 82550 ECHO 2D 03/14/2012 10998 HEART CATH 03/14/2012 37.22 LEFT HEART CARDIAC CATH 03/19/2012 88.53 LT HEART ANGIOCARDIOGRAM 03/19/2012 88.56 CORONAR ARTERIOGR-2 CATH 03/19/2012 41893 BMP 04/13/2012 77604 LIVER PANEL (LFT) 04/13/2012 LIPOPROT LIPOPROTIEN PANEL 04/13/2012 97231 GLUCOSE FINGER STICK 04/13/2012 91052 A1C (IN-HOUSE) 04/13/2012 66974 MEASURE BLOOD OXYGEN LEVEL 06/21/2012 Cardiolog Ricardo Ta 08/16/2012 68979 ROUTINE VENIPUNCTURE 09/11/2012 68819 CBC 09/11/2012 99906 CMP 09/11/2012 7077361 GFR CALC (RESULT ONLY) 09/11/2012 Physical Occupational Therapy 01/23/2013 29468 BIOPSY SKIN LESION (SINGLE) 02/18/2013 Results Test [...] 5-8.5 Urine-Protein Negative Negative Urine-RBC 0-2/HPF Urine-Specific [place] 1.020 1.000-1.030 Urine-WBC 0-2/HPF Urobilinogen 1.0 0.2-1.0 [...] 03/16/18 10:05 NRG QUANTITY OF GROWTH . NR FREE TEXT ENTRY 2 SENSITIVITY REPORTED 03/17/18 [...] measurement by glucometer (mass/volume) 258 mg/dL 70-110 Comprehensive Metabolic Panel - 08/15/18 06:44 Albumin 3.8 g/dL 3.6-5.1 ALP 159 U/L 35-130 ALT 43 U/L 6-45 Anion Gap 15 6-14 AST 28 U/L 2-40 BUN 36 mg/dL 5-25 Calcium 8.8 mg/dL 8.3-10.4 Chloride 106 mmol/L 95-114 CO2 24 mEq/L 22-33 Creat 1.75 mg/dL 0.50-1.50 eGFR 39 mL/min/1.73m2 >59 Globulin 3.1 g/dL 2.3-3.5 Glucose 209 mg/dL 70-110 Osmo 304 280-295 Potassium 4.2 mmol/L 3.5-5.3 Sodium 141 mmol/L 134-148 TBil 0.4 mg/dL 0.2-1.2 TP 6.9 g/dL 6.0-8.3 Valproic Acid - 08/15/18 06:44 Valproic Acid 16.8 ug/mL 55.0-105.0 MRSA Screen - 08/15/18 08:16 FINAL CULTURE RESULTS MRSA Negative Nasal Culture MEDIA PLATED Setup at 0955on 08/15/2018 Rapid Drug Screen + ETOH,Medical - 08/15/18 08:50 Amphetamine NEGATIVE NEGATIVE Barbiturates NEGATIVE NEGATIVE Benzodiazepines NEGATIVE NEGATIVE Cocaine NEGATIVE NEGATIVE Ethanol, Urine <10.00 mg/dL 20.00-80.00 Marijuana NEGATIVE NEGATIVE Methylenedioxymethamphetamine NEGATIVE NEGATIVE Opiates NEGATIVE NEGATIVE Oxycodone NEGATIVE NEGATIVE Phencyclidine NEGATIVE NEGATIVE Propoxyphene NEGATIVE NEGATIVE Tricyclic Antidepressant NEGATIVE NEGATIVE Valproic Acid - 08/20/18 05:00 Valproic Acid 53.6 ug/mL 55.0-105.0 Encounters ACCT No. Visit Date/Time Discharge Status Pt. Type Provider Facility Loc./Unit Complaint [id number] 06/23/2014 11:47:29 06/23/2014 23:59:59 CLS Outpatient Nathen Parker [id number] 04/23/2014 10:07:45 04/23/2014 23:59:59 CLS Outpatient Nathen Parker [id number] 02/27/2014 09:19:41 02/27/2014 23:59:59 CLS Outpatient DeanTriniNathen Kasper [id number] 02/25/2013 15:23:00 02/25/2013 23:59:59 CLS Outpatient RAMIREZ GHOTRA MD [id number] 02/18/2013 09:44:00 02/18/2013 23:59:59 CLS Outpatient KRYSTLE WASSERMAN APRN [id number] 01/22/2013 16:19:00 01/22/2013 23:59:59 CLS Outpatient YANIRA CRESPO MD [id number] 07/26/2012 15:30:00 07/26/2012 23:59:59 CLS Outpatient YANIRA CRESPO MD [id number] 06/20/2012 09:10:00 06/20/2012 23:59:59 CLS Outpatient MIO GENTILE DO [id number] 06/13/2012 15:27:00 06/13/2012 23:59:59 CLS Outpatient KRYSTLE WASSERMAN APRN [id number] 04/30/2012 08:41:00 04/30/2012 23:59:59 CLS Outpatient KRYSTLE WASSERMAN APRN [id number] 04/19/2012 10:58:00 04/19/2012 23:59:59 CLS Outpatient YANIRA CRESPO MD [id number] 04/12/2012 17:48:00 04/12/2012 23:59:59 [place] [id number] 03/14/2012 08:36:00 03/14/2012 23:59:59 CLS Outpatient KRYSTLE WASSERMAN APRN [id number] 12/06/2012 10:39:00 Document Registration [id number] 10/09/2012 09:21:00 Document Registration [id number] 09/11/2012 11:46:00 Document Registration [id number] 09/11/2012 11:46:00 Document Registration [id number] 08/27/2012 09:52:00 Document Registration [id number] 08/15/2018 09:19:00 08/21/2018 14:57:00 DIS Inpatient JANNY GUO [facility] [id number] 09/22/2017 18:10:00 09/22/2017 23:59:00 DIS Outpatient Liu Pham [id number] 06/22/2017 16:22:00 07/04/2017 10:00:00 DIS Inpatient Toni Toledo [facility] JEFERSON [id number] 05/19/2017 18:39:00 05/19/2017 23:59:00 DIS Outpatient Liu Pham [id number] 04/10/2016 15:23:00 04/10/2016 23:59:00 DIS Outpatient Liu Pham [id number] 06/22/2017 17:08:40 Document Registration [id number] 10/29/2015 11:54:00 Document Registration [id number] 09/05/2018 11:55:00 09/05/2018 23:59:59 CLS Outpatient HERNANDEZ ANDERSON APRN [facility] RAD G47.33 [id number] 08/08/2018 07:45:00 08/08/2018 11:56:00 DIS Outpatient CESAR BORJA MD [facility] CATARACT LEFT EYE [id number] 08/03/2018 07:31:00 08/03/2018 23:59:59 CLS Outpatient CESAR BORJA MD [facility] CATARACT RIGHT EYE [id number] 08/01/2018 05:34:00 08/01/2018 15:21:00 DIS Outpatient CESAR BORJA MD [facility] PREOP CATARACT RIGHT EYE [id number] 07/25/2018 14:14:00 07/25/2018 23:59:59 CLS Preadmit HERNANDEZ ANDERSON APRN [facility] SLEEP SLEEP APNEA [id number] 07/25/2018 13:02:00 07/25/2018 23:59:59 CLS Outpatient TIAN RIVERA MD [facility] CARD CAD,COPD [id number] 06/28/2018 19:12:00 06/29/2018 07:00:00 DIS Outpatient HERNANDEZ ANDERSON APRN [facility] SLEEP SLEEP APNEA [id number] 05/14/2018 13:00:00 05/14/2018 17:15:00 DIS Emergency ANN ALEX MD [facility] ER STROKE SYMPTOMS [id number] 05/01/2018 08:51:00 05/01/2018 23:59:59 CLS Outpatient PRABHJOT, FRITZ R DIRECTOR GOVERNMENT [facility] WOUND[facility]ARE [id number] 04/24/2018 08:52:00 04/24/2018 23:59:59 CLS Outpatient PRABHJOT, FRITZ R DIRECTOR GOVERNMENT [facility] [id number] 04/17/2018 10:00:00 04/17/2018 23:59:59 CLS Outpatient PRABHJOT, FRITZ R DIRECTOR GOVERNMENT [facility] [id number] 04/10/2018 08:57:00 04/10/2018 23:59:59 CLS Outpatient PRABHJOT, FRITZ R DIRECTOR GOVERNMENT [facility] [id number] 04/03/2018 08:39:00 04/03/2018 23:59:59 CLS Outpatient PRABHJOT, FRITZ R DIRECTOR GOVERNMENT [facility] [id number] 03/27/2018 08:55:00 03/27/2018 23:59:59 CLS Outpatient PRABHJOT FRITZ R DIRECTOR GOVERNMENT [facility] [id number] 03/20/2018 09:16:00 03/20/2018 23:59:59 CLS Outpatient PRABHJOT, FRITZ R DIRECTOR GOVERNMENT [facility] [id number] 03/13/2018 10:15:00 03/13/2018 23:59:59 CLS Outpatient PRABHJOT, FRITZ R DIRECTOR GOVERNMENT [facility] RAD I87.2 [id number] 03/13/2018 09:04:00 03/13/2018 23:59:59 CLS Outpatient PRABHJOT, FRITZ R DIRECTOR GOVERNMENT [facility] [id number] 03/05/2018 07:31:00 03/06/2018 13:40:00 DIS Outpatient MIGUEL ESPINAL, TIAN De La O [facility] CATH PAD,CAD,HTN,HLP [id number] 02/27/2018 09:15:00 02/27/2018 23:59:59 CLS Outpatient LUIS ARMANDO MARTINEZ MD [facility] [id number] 02/20/2018 09:50:00 02/20/2018 23:59:59 CLS Outpatient PRABHJOT FRITZ R DIRECTOR GOVERNMENT [facility] LAB I87.2,E11.622 [id number] 02/20/2018 09:02:00 02/20/2018 23:59:59 CLS Outpatient FRITZ RICK DIRECTOR GOVERNMENT [facility] [id number] 02/13/2018 08:14:00 02/13/2018 23:59:59 CLS Outpatient FRITZ RICK DIRECTOR GOVERNMENT [facility] [id number] 03/14/2017 10:04:00 03/14/2017 23:59:59 CLS Outpatient LIU PHAM MD [facility] LABNPT E03.9 [id number] 05/24/2016 17:14:00 05/24/2016 20:33:00 DIS Emergency RANDEE EVANS APRN [facility] ER ELEV GLUCOSE [id number] 04/23/2015 14:00:00 04/29/2015 14:00:00 DIS Inpatient OLENA OLIVEIRA MD [facility] 4TH PNEUMONIA/ELEVATED TROPONIN [id number] 02/04/2013 09:01:00 02/13/2013 11:22:00 DIS Outpatient GERMANIA ROMAN [facility] REHAB RESIDUAL L SIDED WEAKNESS S/P STROKE 05/2012 [id number] 01/17/2013 20:50:00 01/18/2013 13:00:00 DIS Inpatient YANIRA CRESPO MD [facility] 4TH CHRONIC PAIN INABILITY TO CARE FOR SELF [id number] 10/15/2012 08:59:00 11/21/2012 00:01:00 DIS Outpatient YANIRA CRESPO MD [facility] CVA [id number] 09/22/2012 22:20:00 09/23/2012 00:04:00 DIS Emergency ESTEPHANIE OLIVEIRA MD [facility] ER CHEST PAIN [id number] 09/22/2012 22:26:00 09/22/2012 23:59:59 CLS Emergency [id number] 09/17/2012 10:45:00 09/21/2012 12:55:00 DIS Inpatient ROCK CHEN MD [facility] IRF DEBILITY [id number] 09/12/2012 12:58:00 09/17/2012 10:45:00 DIS Inpatient BRANDIN ESPINAL, RAMIREZ Edwards [facility] 4TH PNEUMONIA [id number] 04/23/2015 11:24:00 Document Registration [id number] 08/29/2012 00:03:00 Document Registration [id number] 08/14/2012 02:09:00 Document Registration [id number] 06/12/2012 08:08:00 Document Registration [id number] 05/02/2012 08:09:00 Document Registration [id number] 03/20/2012 14:49:00 Document Registration [id number] 03/29/2011 15:55:00 Document Registration [id number] 08/15/2018 09:19:00 Document Registration
[2018-09-17 13:40] VITALS: BP 142/95
[2018-09-17] MEDS ORDERED: ONDANSETRON 4 MG/2 ML (SDV) Z0FRAN IV PRN (14:15)
[2018-09-17] MEDS: NS IV 1000 ML 1,000 ML IV SCH (14:15)
[2018-09-17] MEDS ORDERED: CATHETER FLUSH 10 ML SYR IV PRN (14:30)
[2018-09-17] MEDS ORDERED: BENZ100C18 PO (15:39)
[2018-09-17] MEDS ORDERED: CALC1POW TOP (15:39)
[2018-09-17] MEDS ORDERED: DIVA500T15 PO (15:39)
[2018-09-17] MEDS ORDERED: [UNRECOGNIZED DRUG - CODE] TP (15:39)
[2018-09-17] MEDS ORDERED: POVI3780 TP (15:39)
--- NOTE | 2018-09-17 15:42 | NUR ---
UPDATED MED REC WITH ORDER SUMMARY REPORT FROM [facility]
[2018-09-17 15:43] VITALS: BP 142/95
[2018-09-17 16:00] VITALS: BP 175/84
[2018-09-17 16:24] VITALS: BP 142/95
[2018-09-17] MEDS ORDERED: RT-ALBUTEROL SULF 2.5 MG/3 ML PRE-MIX VIAL INH PRN (16:30)
[2018-09-17] MEDS: inSUlin ASPART (NovoLOG) 1 UNIT/0.01 ML (CHARGE PER UNIT) SC SCH ×2 (16:42→21:12)
[2018-09-17 20:00] VITALS: BP 146/78
[2018-09-17] MEDS: methylPREDNISolone 125 MG (Solu-MEDROL) VIAL IV SCH ×2 (20:07→23:53)
[2018-09-18 00:13] VITALS: BP 159/74
[2018-09-18] MEDS: ACETAMINOPHEN 500 MG TAB (TYLENOL) PO PRN ×2 (01:09→16:23)
[2018-09-18 04:00] VITALS: BP 170/86
[2018-09-18] MEDS: NS IV 1000 ML 1,000 ML IV SCH ×2 (05:01→18:10)
[2018-09-18 05:48] LABS: BASOPHILS % (AUTO) 0 % (0-10); EOSINOPHILS % (AUTO) 0 % (0-10); HEMATOCRIT 44 % (40-54); HEMOGLOBIN 14.1 G/DL (13.3-17.7); LYMPHOCYTES # (AUTO) 1.7 X 10^3 (1.0-4.0); LYMPHOCYTES % (AUTO) 14 % (12-44); MEAN CORPUSCULAR HEMOGLOBIN 29 PG (25-34); MEAN CORPUSCULAR HGB CONC 32 G/DL (32-36); MEAN CORPUSCULAR VOLUME 88 FL (80-99); MEAN PLATELET VOLUME 11.1 FL (7.4-10.4); MONOCYTES # (AUTO) 0.3 X 10^3 (0.0-1.0); MONOCYTES % (AUTO) 2 % (0-12); NEUTROPHILS # (AUTO) 10.1 X 10^3 (1.8-7.8); NEUTROPHILS % (AUTO) 83 % (42-75); PLATELET COUNT 220 10^3/uL (130-400); RED CELL DISTRIBUTION WIDTH 14.3 % (10.0-14.5); WHITE BLOOD COUNT 12.1 10^3/uL (4.3-11.0)
[2018-09-18] MEDS: methylPREDNISolone 125 MG (Solu-MEDROL) VIAL IV SCH (06:01)
[2018-09-18] MEDS: inSUlin ASPART (NovoLOG) 1 UNIT/0.01 ML (CHARGE PER UNIT) SC SCH ×5 (06:01→21:31)
[2018-09-18 06:02] LABS: ALBUMIN 3.4 GM/DL (3.2-4.5); BILIRUBIN,TOTAL 0.4 MG/DL (0.1-1.0); CALCIUM 8.1 MG/DL (8.5-10.1); CREATININE SERUM 1.71 MG/DL (0.60-1.30); POTASSIUM 5.2 MMOL/L (3.6-5.0); TOTAL PROTEIN 7.3 GM/DL (6.4-8.2)
[2018-09-18 08:30] VITALS: BP 168/71
[2018-09-18] MEDS ORDERED: FAMOTIDINE 20 MG (PEPCID) TABLET PO NR (09:15)
[2018-09-18] MEDS ORDERED: VENlafaxine 75 MG (EFFEXOR) TAB PO NR (09:30)
[2018-09-18] MEDS ORDERED: RT-ALBUTEROL SULF 2.5 MG/3 ML PRE-MIX VIAL INH PRN (09:45)
[2018-09-18] MEDS: RT-ALBUTEROL SULF 2.5 MG/3 ML PRE-MIX VIAL INH SCH ×3 (10:51→19:28)
[2018-09-18 12:00] VITALS: BP 150/67
[2018-09-18] MEDS: guaiFENesin/DM (ROBITUSSIN DM) 10 ML UDC PO PRN (12:58)
--- NOTE | 2018-09-18 14:00 | NUR ---
Pastoral care visit.
[2018-09-18 16:00] VITALS: BP 164/63
[2018-09-18] MEDS: VENlafaxine 75 MG (EFFEXOR) TAB PO SCH (18:10)
[2018-09-18 20:00] VITALS: BP 137/74
[2018-09-18] MEDS ORDERED: ATORVASTATIN 40 MG (LIPITOR) TABLET PO SCH (21:00)
[2018-09-18] MEDS: FAMOTIDINE 20 MG (PEPCID) TABLET PO SCH (21:31)
[2018-09-18] MEDS: APIXABAN 5 MG (ELIQUIS) TABLET PO SCH (21:31)
[2018-09-19 00:17] VITALS: BP 149/81
[2018-09-19] MEDS: guaiFENesin/DM (ROBITUSSIN DM) 10 ML UDC PO PRN ×2 (03:04→08:17)
[2018-09-19 04:23] VITALS: BP 143/80
[2018-09-19] MEDS: VENlafaxine 75 MG (EFFEXOR) TAB PO SCH (06:19)
[2018-09-19] MEDS: inSUlin ASPART (NovoLOG) 1 UNIT/0.01 ML (CHARGE PER UNIT) SC SCH ×4 (06:19→12:19)
[2018-09-19] MEDS: NS IV 1000 ML 1,000 ML IV SCH (07:35)
[2018-09-19 08:00] VITALS: BP 179/90
[2018-09-19] MEDS: RT-ALBUTEROL SULF 2.5 MG/3 ML PRE-MIX VIAL INH SCH (08:12)
[2018-09-19] MEDS: APIXABAN 5 MG (ELIQUIS) TABLET PO SCH (08:17)
[2018-09-19] MEDS: FAMOTIDINE 20 MG (PEPCID) TABLET PO SCH (08:18)
[2018-09-19] MEDS ORDERED: DOXY100C2 PO (08:45)
[2018-09-19] MEDS ORDERED: ASPIRIN 81 MG CHEW (CHILDREN'S ASA) PO SCH (09:00)
--- NOTE | 2018-09-19 11:25 | NUR ---
CM/SS sent discharge information to [facility], from where the patient came. They are aware they need to bring oxygen and wheelchair. They will transport the patient this day between 1-2pm.
[2018-09-19 12:00] VITALS: BP 177/91
--- NOTE | 2018-09-19 12:47 | NUR ---
REPORT GIVEN TO CISCO ANTUNEZ AT [facility].
--- NOTE | 2018-09-19 13:45 | NUR ---
RC MURO demonstrates understanding of discharge instructions and accurately returns instructions upon questioning. Copy of Post-Discharge Instructions and Medication Discharge Instructions given to CISCO ANTUNEZ FROM [facility]. RC MURO is not able to manage continuing needs after discharge, FACILITY HELPS MANAGE NEEDS. Patients belongings returned to STAFF FROM [facility]. Skin dry and intact; no breakdown noted. Patient discharged from [facility] on 09/19 at 1345. RC MURO left floor via WHEELCHAIR, accompanied by STAFF.
--- OUTSIDE RECORDS SUMMARY | 2018-09-19 16:10 | XMS REPORT ---
Author Author Migration, Doctor Organization [facility] Address Unknown Phone Unavailable Care Team Providers Care Hydraulic Plumber Name Role Phone Migration, Doctor Unavailable Unavailable PROBLEMS Type Condition ICD9-CM Code XMF81-JE Code Onset Dates Condition Status SNOMED Code Problem Nausea with vomiting 787.01 Active 78688646 Problem Diarrhea 787.91 Active 93232004 Problem Pain in joint, shoulder region 719.41 Active 564391248 Problem Pain in joint, lower leg 719.46 Active 573853272 Problem Unspecified local infection of skin and subcutaneous tissue 686.9 Active 344276712 Problem Unspecified disorder of skin and subcutaneous tissue 709.9 Active 68308713 Problem 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 320433841 Problem Unspecified episodic mood disorder 296.90 Active 877189698 Problem Vascular dementia, uncomplicated 290.40 Active 22778987 Problem Major depressive disorder, recurrent, unspecified F33.9 Active 52984466 Problem 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 Active 678689304 Problem Vascular dementia with behavioral disturbance F01.51 Active [id number] Problem Unspecified hypotension 458.9 Active 89797864 Problem Other and unspecified hyperlipidemia 272.4 Active 45370143 Problem Diabetes mellitus without mention of complication, type II or unspecified type, not stated as uncontrolled 250.00 Active 783980268 Problem 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 Active 88903050 Problem Unspecified mood [affective] disorder F39 Active [id number] ALLERGIES No Information ENCOUNTERS Encounter Location Date Diagnosis [facility] [address] [facility] [id number] [address] September, [facility] [address] [facility] [id number] [place] [address] Aug, [facility] [address] [facility] [id number] [address] [address] Feb, Major depressive disorder, recurrent, unspecified F33.9 and Vascular dementia with behavioral disturbance F01.51 [facility] [address] [address] Dec, Major depressive disorder, recurrent, unspecified F33.9 [facility] [id number] [place] [address] 80658- 0010 Oct, Unspecified mood [affective] disorder F39 [facility] [id number] [place] [address] 53488- 5393 September, Major depressive disorder, recurrent, unspecified F33.9 [facility] [place] [id number] [place] [address] [id number] May, [facility] [id number] [place] [address] 91850- 4834 May, Major depressive disorder, recurrent, unspecified F33.9 [facility] [id number] [place] [address] 52222- 4066 Feb, Major depressive disorder, recurrent, unspecified F33.9 [facility] [address] [address] 93[address] Jan, Major depressive disorder, recurrent, unspecified F33.9 [facility] [id number] [place] [address] 45577- 6887 Jan, Major depressive disorder, recurrent, unspecified F33.9 [facility] [id number] [place] [address] 64741- 0364 Jan, Major depressive disorder, recurrent, unspecified F33.9 [facility] [address] [address] Dec, Major depressive disorder, recurrent, unspecified F33.9 [facility] [address] [id number] [address] 2724 Nov, Major depressive disorder, recurrent, unspecified F33.9 [facility] [id number] [place] [address] 27101- 7919 Nov, 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 [facility] [id number] [place] [address] 86967- 2263 08 Oct, 2016 Unspecified mood [affective] disorder F39 ; Major depressive disorder, recurrent, unspecified F33.9 and Vascular dementia with behavioral disturbance F01.51 [facility] [id number] [place] [address] 49721- 7401 May, 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 [facility] [id number] [place] [address] 16801- 1384 14 Aug, 2014 [facility] [address] [address]- 3706 Aug, [facility] [id number] [place] [address] 69860- 7062 15 Feb, 2013 [facility] [id number] [place] [address] 71472- 5570 Feb, [facility] [id number] [place] [address] 04617- 1069 Feb, [facility] [id number] [place] [address] 58454- 5109 Feb, [facility] [id number] [place] [address] 80361- 0190 23 Jan, 2013 [facility] [id number] [place] [address] 26565- 5206 20 Jan, 2012 [facility] [id number] [place] [address] 96623- 5314 18 Sep2012 [facility] [id number] [place] [address] 39427- 1048 10 Jan, 2012 [facility] [id number] [place] [address] 74834- 8849 09 Jan, 2012 [facility] [id number] [place] [address] 30196- 1022 06 Jan, 2012 [facility] [place] [facility] [address] [id number] [place] [address]- 6061 06 Jan, 2012 [facility] [place] [facility] [address] [id number] [place] [address]- 2626 05 Jan, 2013 [facility] [place] [facility] [address] [id number] [place] [address]- 6840 Jan, [facility] [place] [facility] [address] [id number] [place] [address]- 5758 Dec, [facility] [place] [facility] [address] [id number] [place] [address]- 2326 Nov, [facility] [place] [facility] [address] [id number] [place] [address]- 5785 Nov, [facility] [place] [facility] [address] [id number] [place] [address]- 7005 Nov, [facility] [place] [facility] [address] [id number] [place] [address]- 8364 Nov, [facility] [place] [facility] [address] [id number] [place] [address]- 6637 Nov, [facility] [place] [facility] [address] [id number] [place] [address]- 2200 Oct, [facility] [place] [facility] [address] [id number] [place] [address]- 9875 Oct, [facility] [place] [facility] [address] [id number] [place] [address]- 0310 Oct, [facility] [place] [facility] [address] [id number] [place] [address]- 2616 Oct, [facility] [place] [facility] [address] [id number] [place] [address]- 5145 Oct, [facility] [place] [facility] [address] [id number] [place] [address]- 2320 September, [facility] [place] [facility] [address] [id number] [place] [address]- 8352 07 Sep, 2012 [facility] [address] [id number] [place] [address]- 3011 30 Aug, 2012 [facility] [address] [id number] [place] [address]- 5896 15 Aug, 2012 [facility] [address] [id number] [place] [address]- 9601 02 Aug, 2012 [facility] [address] [id number] [place] [address]- 6869 28 Jul, 2012 [facility] [address] [id number] [place] [address]- 8545 25 Jul, 2012 [facility] [address] [id number] [place] [address]- 6864 22 Jul, 2012 [facility] [address] [id number] [place] [address]- 3139 21 Jul, 2012 [facility] [address] [id number] [place] [address]- 7625 20 Jul, 2012 [facility] [address] [id number] [place] [address]- 8258 19 Jul, [address] [facility] [address] [id number] [place] [address]- 6957 19 Jul, 2012 [facility] [address] [id number] [place] [address]- 2216 18 Jul, 2012 [facility] [address] [id number] [place] [address]- 6030 14 Jul, 2012 [facility] [address] [id number] [place] [address]- 6050 18 Jun, 2012 [facility] [address] [id number] [place] [address]- 1236 08 Jun, 2012 [facility] [address] [id number] [place] [address]- 6045 06 Jun, 2012 [facility] [address] [id number] [place] [address]- 7660 31 May, 2012 [facility] [place] [facility] [address] [id number] [place] [address]- 9145 30 May, 2012 [facility] [place] [facility] [address] [id number] [place] [address]- 2277 29 May, 2012 [facility] [place] [facility] [address] [id number] [place] [address]- 4245 28 May, 2012 [facility] [place] [facility] [address] [id number] [place] [address]- 2973 31 Apr, 2012 [facility] [place] [facility] [address] [id number] [place] [address]- 2217 31 Apr, 2012 [facility] [place] [facility] [address] [id number] [place] [address]- 0139 18 Apr, 2012 [facility] [place] [facility] [address] [id number] [place] [address]- 0250 18 Apr, 2012 [facility] [place] [facility] [address] [id number] [place] [address]- 0183 17 Apr, 2012 [facility] [place] [facility] [address] [id number] [place] [address]- 9039 17 Apr, 2012 [facility] [place] [facility] [address] [id number] [place] [address]- 4486 14 Apr, 2012 [facility] [place] [facility] [address] [id number] [place] [address]- 1271 14 Apr, 2012 [facility] [place] [facility] [address] [id number] [place] [address]- 1435 14 Apr, 2012 [facility] [place] [facility] [address] [id number] [place] [address]- 8158 14 Apr, 2012 [facility] [place] [facility] [address] [id number] [place] 8924 10 Apr, 2012 [facility] [place] [facility] [address] [id number] [place] [address]- 6677 Apr, [facility] [place] [facility] [address] [id number] [place] [address]- 0209 Apr, [facility] [place] [facility] [address] [id number] [place] [address]- 2696 Apr, [facility] [place] [facility] [address] [id number] [place] [address]- 6116 Apr, [facility] [place] [facility] [address] [id number] [place] [address]- 4801 Apr, [facility] [place] [facility] [address] [id number] [place] [address]- 5238 Apr, [facility] [place] [facility] [address] [id number] [place] [address]- 3375 Apr, [facility] [place] [facility] [address] [id number] [place] [address]- 0886 Apr, [facility] [place] [facility] [address] [id number] [place] [address]- 6489 Mar, [facility] [place] [facility] [address] [id number] [place] [address]- 0419 Mar, [facility] [place] [facility] [address] [facility] [id number] [place] [address]- 2333 Mar, [facility] [place] [facility] [address] [id number] [place] [address]- 0041 Mar, [facility] [place] [facility] [address] [id number] [place] [address]- 0366 Mar, [facility] [place] [facility] [address] [id number] [place] [address]- 9455 Mar, [facility] [place] [facility] [address] [id number] [place] [address]- 8610 Mar, [facility] [place] [facility] [id number] [place] [address]- 6686 Mar, [facility] [place] [facility] [address] [id number] [place] [address]- 0975 Mar, [facility] [place] [facility] [address] [id number] [place] [address]- 4333 Mar, [facility] [place] [facility] [address] [id number] [place] [address]- 0216 Mar, [facility] [place] [facility] [address] [id number] [place] [address]- 0795 Mar, [facility] [place] [facility] [address] [id number] [place] [address]- 5534 Mar, [facility] [place] [facility] [address] [id number] [place] [address]- 9790 Feb, [facility] [place] [facility] [address] [id number] [place] 9973 Feb, [facility] [place] [facility] [address] [id number] [place] [address]- 0751 Feb, [facility] [place] [facility] [address] [id number] [place] [address]- 6108 Feb, [facility] [place] [facility] [address] [id number] [place] [address]- 1911 Feb, [facility] [place] [facility] [address] [facility] [id number] [place] [address]- 0588 Feb, [facility] [place] [facility] [address] [id number] [place] [address]- 5622 Feb, [facility] [place] [facility] [address] [id number] [place] [address]- 7145 Feb, [facility] [place] [facility] [address] [id number] [place] [address]- 9136 Feb, [facility] [place] [facility] [address] [id number] [place] [address]- 4960 Feb, [facility] [place] [facility] [address] [id number] [place] [address]- 9746 Jan, [facility] [place] [facility] [address] [id number] [place] [address]- 0825 Dec, [facility] [place] [facility] [address] [id number] [place] [address]- 1712 Dec, [facility] [place] [facility] [address] [id number] [place] [address]- 6343 Nov, [facility] [place] [facility] [address] [id number] [place] [address]- 3024 Nov, [facility] [place] [facility] [address] [id number] [place] [address]- 0430 Nov, [facility] [place] [facility] [address] [id number] [place] [address]- 4281 Nov, [facility] [place] [facility] [address] [id number] [place] [address]- 6904 Oct, [facility] [place] [facility] [address] [id number] [place] [address]- 1017 Oct, [facility] [place] [facility] [address] [id number] [place] [address]- 2806 Oct, [facility] [place] [facility] [address] [id number] [place] [address]- 5274 Oct, [facility] [place] [facility] [address] [id number] [place] [address]- 3346 September, [facility] [place] [facility] [address] [id number] [place] [address]- 9054 September, [facility] [place] [facility] [address] [id number] [place] [address]- 1974 Aug, [facility] [place] [facility] [address] [id number] [place] [address]- 7128 Aug, [facility] [place] [facility] [address] [id number] [place] [address]- 0954 Aug, [facility] [place] [facility] [address] [address]- 0150 30 Jul, 2011 [facility] [address] [address]- 3921 Jul, [facility] [address] [address]- 5538 15 Jun, 2011 [facility] [address] [address]- 0089 Jun, [facility] [id number] [place] [address] 95141- 2220 Jun, [facility] [id number] [place] [address] 33403- 1054 Apr, [facility] [address] [address]- 2715 Apr, [facility] [id number] [place] [address] 33478- 3602 Mar, [facility] [address] [address]- 8515 Mar, [facility] [address] [address]- 7386 Feb, [facility] [address] [address]- 8140 Dec, [facility] [address] [address]- 4854 Nov, IMMUNIZATIONS No Known Immunizations SOCIAL HISTORY Never Assessed REASON FOR VISIT EMR[place] [place] CARE VITAL SIGNS [...]
--- OUTSIDE RECORDS SUMMARY | 2018-09-19 16:20 | XMS REPORT | Continuity of Care Document ---
[...] Yes MORPHINE Drug Allergy 06/20/2012 Yes morphine [id number] Drug Allergy Moderate psychosis 09/12/2012 Medications Medication [...] 06/23/2017 07/22/2017 Daily&0900 MultiVits (Thera M Plus) (ujzzscqq-wuyb-vgatkhb) oral tablet TAB 06/23/2017 07/22/2017 Daily&0900 Rivastigmine [...] 08/15/2018 09/13/2018 Daily&0900 MultiVits (Thera M Plus) (msogqsha-rzrw-bwpepwl) oral tablet TAB 08/15/2018 09/13/2018 Daily&0900 Rivastigmine [...] Attending Type Code Diagnosis Diagnosed By 10/08/2010 YANIAR CRESPO MD 401.1 HYPERTENSION, BENIGN ESSENTIAL 10/08/2010 [...] 401.1 HYPERTENSION, BENIGN ESSENTIAL 10/08/2010 GENTILE DO, MIO K 786.2 COUGH 10/08/2010 YANIRA CRESPO [...] APRN T 780.57 SLEEP APNEA 11/30/2010 LISY COMPUTED TOMOGRAPHY TECHNOLOGISTKRYSTLE Ruby 786.05 SHORTNESS OF BREATH 11/30/2010 KRYSTLE [...] INFARCT 03/21/2012 Ot 414.01 CORONARY ATHEROSCLEROSIS OF [place] CORON 03/21/2012 Ot 414.2 CHRONIC TOTAL OCCLUSION [...] CVA LATE EFFECTS 06/13/2012 MIO GENTILE DO K 296.90 MOOD DISORDER 06/13/2012 [...] CRESPO MD Ot 414.01 CORONARY ATHEROSCLEROSIS OF [place] CORON 01/18/2013 YANIRA CRESPO MD Ot 428.0 [...] ADULT 04/29/2015 OLENA OLIVEIRA MD, Ot Z79.4 CORRECTION (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 OF INSULIN 04/29/2015 OLENA OLIVEIRA [...] (MODERAT 05/24/2016 RANDEE EVANS APRN Ot Z79.4 CREAMERY WORKER (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 OF INSULIN 05/24/2016 RANDEE EVANS APRN Ot Z79.84 CREAMERY WORKER (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 OF ORAL HYPOGLYC 05/24/2016 RANDEE EVANS APRN Ot Z79.899 OTHER CORRECTION (CURRENT) DRUG THERAPY 05/24/2016 RANDEE EVANS APRN [...] CHRONIC KIDNEY DISEASE, STAGE 3 (MODERAT 05/25/2016 RANEDE EVANS APRN Ot Z79.4 CREAMERY WORKER (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 OF INSULIN 05/25/2016 RANDEE EVANS APRN Ot Z79.84 CORRECTION (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 OF ORAL HYPOGLYC 05/25/2016 RANDEE EVANS APRN Ot Z79.899 OTHER CREAMERY WORKER (CURRENT) DRUG THERAPY 05/25/2016 RANDEE EVANS APRN [...] (MODERAT 05/26/2016 RANDEE EVANS APRN Ot Z79.4 CORRECTION (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 OF INSULIN 05/26/2016 RANDEE EVANS APRN Ot Z79.84 CORRECTION (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 OF ORAL HYPOGLYC 05/26/2016 RANDEE EVANS APRN Ot Z79.899 OTHER CREAMERY WORKER (CURRENT) DRUG THERAPY 05/26/2016 RANDEE EVANS APRN [...] (MODERAT 05/30/2016 RANDEE EVANS APRN Ot Z79.4 CREAMERY WORKER (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 OF INSULIN 05/30/2016 RANDEE EVANS COMPUTED TOMOGRAPHY TECHNOLOGIST Ot Z79.84 CREAMERY WORKER (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 OF ORAL HYPOGLYC 05/30/2016 RANDEE EVANS COMPUTED TOMOGRAPHY TECHNOLOGIST Ot Z79.899 OTHER CREAMERY WORKER (CURRENT) DRUG THERAPY 05/30/2016 RANDEE EVANS COMPUTED TOMOGRAPHY TECHNOLOGIST Ot Z95.1 PRESENCE OF AORTOCORONARY BYPASS GRAFT [...] Toni W I25.10 ATHSCL HEART DISEASE OF [place] CORONARY ARTERY W/O ANG PCTRS 07/04/2017 Tre Toni W I48.91 UNSPECIFIED ATRIAL FIBRILLATION 07/04/2017 Tre Toni W I50.9 HEART FAILURE, UNSPECIFIED 07/04/2017 TreStephenieToni W 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 07/04/2017 TreToni farris W N18.9 CHRONIC KIDNEY DISEASE, UNSPECIFIED 02/09/2018 LIU PHAM MD Ot E03.9 HYPOTHYROIDISM, UNSPECIFIED 02/13/2018 LIU PHAM MD Ot E03.9 HYPOTHYROIDISM, UNSPECIFIED 02/15/2018 FRITZ RICK COMPUTED TOMOGRAPHY TECHNOLOGIST Ot E11.622 TYPE 2 DIABETES MELLITUS WITH OTHER SKIN 02/15/2018 FRITZ RICK COMPUTED TOMOGRAPHY TECHNOLOGIST Ot I87.2 VENOUS INSUFFICIENCY (CHRONIC) (PERIPHER 02/15/2018 FRITZ RICK R COMPUTED TOMOGRAPHY TECHNOLOGIST Ot L97.222 NON-PRESSURE CHRONIC ULCER OF LEFT CALF 02/15/2018 FRITZ RICK R COMPUTED TOMOGRAPHY TECHNOLOGIST Ot 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 02/15/2018 FRITZ RICK COMPUTED TOMOGRAPHY TECHNOLOGIST Ot E11.622 TYPE 2 DIABETES MELLITUS WITH OTHER SKIN 02/15/2018 PRABHJOTFRITZ R COMPUTED TOMOGRAPHY TECHNOLOGIST Ot I87.2 VENOUS INSUFFICIENCY (CHRONIC) (PERIPHER 02/15/2018 PRABHJOTFRITZ R COMPUTED TOMOGRAPHY TECHNOLOGIST Ot L97.222 NON-PRESSURE CHRONIC ULCER OF LEFT CALF 02/15/2018 PRABHJOTFRITZ COMPUTED TOMOGRAPHY TECHNOLOGIST Ot 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 02/20/2018 LIU PHAM MD Ot E03.9 HYPOTHYROIDISM, UNSPECIFIED 02/20/2018 FRITZ RICK COMPUTED TOMOGRAPHY TECHNOLOGIST Ot E11.622 TYPE 2 DIABETES MELLITUS WITH OTHER SKIN 02/20/2018 FRITZ RICK R COMPUTED TOMOGRAPHY TECHNOLOGIST Ot I87.2 VENOUS INSUFFICIENCY (CHRONIC) (PERIPHER 02/20/2018 FRITZ RICK R COMPUTED TOMOGRAPHY TECHNOLOGIST Ot L97.222 NON-PRESSURE CHRONIC ULCER OF LEFT CALF 02/20/2018 FRITZ RICK COMPUTED TOMOGRAPHY TECHNOLOGIST Ot 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 03/02/2018 LUIS ARMANDO MARTINEZ MD Ot E11.622 TYPE 2 DIABETES MELLITUS WITH OTHER SKIN 03/02/2018 LUIS ARMANDO MARTINEZ MD Ot 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 03/02/2018 [...] MD, Ot I25.10 ATHSCL HEART DISEASE OF [place] CORONARY 03/06/2018 TIAN RIVERA MD Ot I69.354 HEMIPLGA FOLLOWING CEREBRAL INFRC AFFECT 03/06/2018 TIAN RIVERA MD, Ot 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 03/06/2018 TIAN RIVERA MD, Ot I70.244 ATHSCL [place]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 03/06/2018 TIAN RIVERA MD, Ot L97.529 NON-PRESSURE CHRONIC ULCER OTH PRT LEFT 03/06/2018 TIAN RIVERA MD Ot Z68.35 BODY MASS INDEX (BMI) 35.0-35.9, ADULT 03/06/2018 TIAN RIVERA MD, Ot Z79.01 CREAMERY WORKER (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 OF ANTICOAGULANT 03/06/2018 TIAN RIVERA MD, Ot Z79.4 CORRECTION (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 OF INSULIN 03/06/2018 TIAN RIVERA MD, Ot Z79.899 OTHER CORRECTION (CURRENT) DRUG THERAPY 03/08/2018 TIAN RIVERA MD, [...] MD Ot I25.10 ATHSCL HEART DISEASE OF [place] CORONARY 03/08/2018 TIAN RIVERA MD Ot I69.354 HEMIPLGA FOLLOWING CEREBRAL INFRC AFFECT 03/08/2018 TIAN RIVERA MD Ot 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 03/08/2018 TIAN RIVERA MD Ot I70.244 ATHSCL [place]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 03/08/2018 TIAN RIVERA MD Ot L97.529 NON-PRESSURE CHRONIC ULCER OTH PRT LEFT 03/08/2018 TIAN RIVERA MD Ot Z68.35 BODY MASS INDEX (BMI) 35.0-35.9, ADULT 03/08/2018 TIAN RIVERA MD Ot Z79.01 CORRECTION (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 OF ANTICOAGULANT 03/08/2018 TIAN RIVERA MD Ot Z79.4 CORRECTION (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 OF INSULIN 03/08/2018 TIAN RIVERA MD Ot Z79.899 OTHER CREAMERY WORKER (CURRENT) DRUG THERAPY 03/09/2018 TIAN RIVERA MD Ot E03.9 HYPOTHYROIDISM, UNSPECIFIED 03/09/2018 TIAN RIVERA MD Ot E11.621 TYPE 2 DIABETES MELLITUS WITH FOOT ULCER 03/09/2018 TIAN RIVERA MD Ot E66.01 MORBID (SEVERE) OBESITY DUE TO EXCESS CA 03/09/2018 TIAN RIVERA MD Ot E78.5 HYPERLIPIDEMIA, UNSPECIFIED 03/09/2018 TIAN RIVREA MD Ot I10 ESSENTIAL (PRIMARY) HYPERTENSION 03/09/2018 TIAN RIVERA MD Ot I25.10 ATHSCL HEART DISEASE OF [place] CORONARY 03/09/2018 TIAN RIVERA MD Ot I69.354 HEMIPLGA FOLLOWING CEREBRAL INFRC AFFECT 03/09/2018 TIAN RIVERA MD Ot 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 03/09/2018 TIAN RIVERA MD, Ot I70.244 ATHSCL [place]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 03/09/2018 TIAN RIVERA MD, Ot L97.529 NON-PRESSURE CHRONIC ULCER OTH PRT LEFT 03/09/2018 TIAN RIVERA MD, Ot Z68.35 BODY MASS INDEX (BMI) 35.0-35.9, ADULT 03/09/2018 TIAN RIVERA MD, Ot Z79.01 CORRECTION (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 OF ANTICOAGULANT 03/09/2018 TIAN RIVERA MD, Ot Z79.4 CORRECTION (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 OF INSULIN 03/09/2018 TIAN RIVERA MD, Ot Z79.899 OTHER CORRECTION (CURRENT) DRUG THERAPY 03/13/2018 FRITZ RICK APRN Ot E11.622 TYPE 2 DIABETES MELLITUS WITH OTHER SKIN 03/13/2018 FRITZ RICK COMPUTED TOMOGRAPHY TECHNOLOGIST Ot I87.2 VENOUS INSUFFICIENCY (CHRONIC) (PERIPHER 03/13/2018 FRITZ RICK COMPUTED TOMOGRAPHY TECHNOLOGIST Ot L97.222 NON-PRESSURE CHRONIC ULCER OF LEFT CALF 03/13/2018 FRITZ RICK COMPUTED TOMOGRAPHY TECHNOLOGIST Ot 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 03/13/2018 FRITZ RICK COMPUTED TOMOGRAPHY TECHNOLOGIST Ot E11.622 TYPE 2 DIABETES MELLITUS WITH OTHER SKIN 03/13/2018 FRITZ RICK COMPUTED TOMOGRAPHY TECHNOLOGIST Ot 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 03/13/2018 FRITZ RICK COMPUTED TOMOGRAPHY TECHNOLOGIST Ot I87.2 VENOUS INSUFFICIENCY (CHRONIC) (PERIPHER 03/13/2018 FRITZ RICK COMPUTED TOMOGRAPHY TECHNOLOGIST Ot L97.222 NON-PRESSURE CHRONIC ULCER OF LEFT CALF 03/13/2018 FRITZ RICK COMPUTED TOMOGRAPHY TECHNOLOGIST Ot 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 03/14/2018 FRITZ RICK COMPUTED TOMOGRAPHY TECHNOLOGIST Ot 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 03/14/2018 FRITZ RICK COMPUTED TOMOGRAPHY TECHNOLOGIST Ot I87.2 VENOUS INSUFFICIENCY (CHRONIC) (PERIPHER 03/14/2018 FRITZ RICK COMPUTED TOMOGRAPHY TECHNOLOGIST Ot L97.222 NON-PRESSURE CHRONIC ULCER OF LEFT CALF 03/14/2018 FRITZ RICK COMPUTED TOMOGRAPHY TECHNOLOGIST Ot 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 03/15/2018 FRITZ RICK COMPUTED TOMOGRAPHY TECHNOLOGIST Ot E11.622 TYPE 2 DIABETES MELLITUS WITH OTHER SKIN 03/15/2018 FRITZ RICK COMPUTED TOMOGRAPHY TECHNOLOGIST Ot 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 03/15/2018 FRITZ RICK COMPUTED TOMOGRAPHY TECHNOLOGIST Ot I87.2 VENOUS INSUFFICIENCY (CHRONIC) (PERIPHER 03/15/2018 FRITZ RICK COMPUTED TOMOGRAPHY TECHNOLOGIST Ot L97.222 NON-PRESSURE CHRONIC ULCER OF LEFT CALF 03/15/2018 FRITZ RICK COMPUTED TOMOGRAPHY TECHNOLOGIST Ot 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 03/15/2018 FRITZ RICK COMPUTED TOMOGRAPHY TECHNOLOGIST Ot M25.772 OSTEOPHYTE, LEFT ANKLE 03/15/2018 FRITZ RICK COMPUTED TOMOGRAPHY TECHNOLOGIST Ot M77.32 CALCANEAL SPUR, LEFT FOOT 03/21/2018 FRITZ RICK APRN Ot E11.622 TYPE 2 DIABETES MELLITUS WITH OTHER SKIN 03/21/2018 PRABHJOTFRITZ COMPUTED TOMOGRAPHY TECHNOLOGIST Ot 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 W [facility] 03/21/2018 FRITZ RICK COMPUTED TOMOGRAPHY TECHNOLOGIST Ot I87.2 VENOUS INSUFFICIENCY (CHRONIC) (PERIPHER 03/21/2018 FRITZ RICK COMPUTED TOMOGRAPHY TECHNOLOGIST Ot L97.222 NON-PRESSURE CHRONIC ULCER OF LEFT CALF 03/21/2018 FRITZ RICK COMPUTED TOMOGRAPHY TECHNOLOGIST Ot 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 03/22/2018 HERNANDEZ ANDERSON APRN Ot G47.30 SLEEP APNEA, UNSPECIFIED 03/23/2018 LUIS ARMANDO MARTINEZ MD Ot E11.622 TYPE 2 DIABETES MELLITUS WITH OTHER SKIN 03/23/2018 LUIS ARMANDO MARTINEZ MD Ot 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 W [facility] 03/23/2018 LUIS ARMANDO MARTINEZ MD Ot I87.2 VENOUS INSUFFICIENCY (CHRONIC) (PERIPHER 03/23/2018 LUIS ARMANDO MARTINEZ MD Ot L97.222 NON-PRESSURE CHRONIC ULCER OF LEFT CALF 03/23/2018 LUIS ARMANDO MARTINEZ MD Ot 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 03/29/2018 FRITZ RICK COMPUTED TOMOGRAPHY TECHNOLOGIST Ot E11.622 TYPE 2 DIABETES MELLITUS WITH OTHER SKIN 03/29/2018 FRITZ RICK COMPUTED TOMOGRAPHY TECHNOLOGIST Ot 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 W [facility] 03/29/2018 FRITZ RICK COMPUTED TOMOGRAPHY TECHNOLOGIST Ot I87.2 VENOUS INSUFFICIENCY (CHRONIC) (PERIPHER 03/29/2018 FRITZ RICK R COMPUTED TOMOGRAPHY TECHNOLOGIST Ot 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 03/30/2018 LUIS ARMANDO MARTINEZ MD Ot E11.622 TYPE 2 DIABETES MELLITUS WITH OTHER SKIN 03/30/2018 LUIS ARMANDO MARTINEZ MD Ot 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 W [facility] 03/30/2018 LUIS ARMANDO MARTINEZ MD Ot I87.2 VENOUS INSUFFICIENCY (CHRONIC) (PERIPHER 03/30/2018 LUIS ARMANDO MARTINEZ MD Ot L97.222 NON-PRESSURE CHRONIC ULCER OF LEFT CALF 03/30/2018 LUIS ARMANDO MARTINEZ MD Ot 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 04/04/2018 FRITZ RICK COMPUTED TOMOGRAPHY TECHNOLOGIST Ot 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 W [facility] 04/04/2018 FRITZ RICK COMPUTED TOMOGRAPHY TECHNOLOGIST Ot I87.2 VENOUS INSUFFICIENCY (CHRONIC) (PERIPHER 04/04/2018 FRITZ RICK R COMPUTED TOMOGRAPHY TECHNOLOGIST Ot L97.222 NON-PRESSURE CHRONIC ULCER OF LEFT CALF 04/04/2018 FRITZ RICK R COMPUTED TOMOGRAPHY TECHNOLOGIST Ot 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 04/04/2018 FRITZ RICK COMPUTED TOMOGRAPHY TECHNOLOGIST Ot E11.622 TYPE 2 DIABETES MELLITUS WITH OTHER SKIN 04/04/2018 FRITZ RICK R COMPUTED TOMOGRAPHY TECHNOLOGIST Ot 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 W [facility] 04/04/2018 PRABHJOT FRITZ R COMPUTED TOMOGRAPHY TECHNOLOGIST Ot I87.2 VENOUS INSUFFICIENCY (CHRONIC) (PERIPHER 04/04/2018 FRITZ RICK COMPUTED TOMOGRAPHY TECHNOLOGIST Ot L97.222 NON-PRESSURE CHRONIC ULCER OF LEFT CALF 04/11/2018 FRITZ RICK COMPUTED TOMOGRAPHY TECHNOLOGIST Ot E11.622 TYPE 2 DIABETES MELLITUS WITH OTHER SKIN 04/11/2018 FRITZ RICK R COMPUTED TOMOGRAPHY TECHNOLOGIST Ot 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 W [facility] 04/11/2018 FRITZ RICK R COMPUTED TOMOGRAPHY TECHNOLOGIST Ot I87.2 VENOUS INSUFFICIENCY (CHRONIC) (PERIPHER 04/11/2018 FRITZ RICK R COMPUTED TOMOGRAPHY TECHNOLOGIST Ot L97.222 NON-PRESSURE CHRONIC ULCER OF LEFT CALF 04/11/2018 FRITZ RICK COMPUTED TOMOGRAPHY TECHNOLOGIST Ot 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 04/18/2018 FRITZ RICK COMPUTED TOMOGRAPHY TECHNOLOGIST Ot E11.622 TYPE 2 DIABETES MELLITUS WITH OTHER SKIN 04/18/2018 PRABHJOT FRITZ R COMPUTED TOMOGRAPHY TECHNOLOGIST Ot 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 04/18/2018 PRABHJOT FRITZ R COMPUTED TOMOGRAPHY TECHNOLOGIST Ot I87.2 VENOUS INSUFFICIENCY (CHRONIC) (PERIPHER 04/18/2018 PRABHJOT, FRITZ R COMPUTED TOMOGRAPHY TECHNOLOGIST Ot 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 04/18/2018 PRABHJOT FRITZ R COMPUTED TOMOGRAPHY TECHNOLOGIST Ot E11.622 TYPE 2 DIABETES MELLITUS WITH OTHER SKIN 04/18/2018 PRABHJOT FRITZ R COMPUTED TOMOGRAPHY TECHNOLOGIST Ot 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 04/18/2018 PRABHJOT, FRITZ R COMPUTED TOMOGRAPHY TECHNOLOGIST Ot I87.2 VENOUS INSUFFICIENCY (CHRONIC) (PERIPHER 04/18/2018 PRABHJOT FRITZ R COMPUTED TOMOGRAPHY TECHNOLOGIST Ot L97.222 NON-PRESSURE CHRONIC ULCER OF LEFT CALF 04/18/2018 PRABHJOT FRITZ R COMPUTED TOMOGRAPHY TECHNOLOGIST Ot 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 04/23/2018 FRITZ RICK R COMPUTED TOMOGRAPHY TECHNOLOGIST Ot E11.622 TYPE 2 DIABETES MELLITUS WITH OTHER SKIN 04/23/2018 PRABHJOT FRITZ R COMPUTED TOMOGRAPHY TECHNOLOGIST Ot 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 04/23/2018 PRABHJOT, FRITZ R COMPUTED TOMOGRAPHY TECHNOLOGIST Ot I87.2 VENOUS INSUFFICIENCY (CHRONIC) (PERIPHER 04/23/2018 PRABHJOT FRITZ R COMPUTED TOMOGRAPHY TECHNOLOGIST Ot L97.222 NON-PRESSURE CHRONIC ULCER OF LEFT CALF 04/23/2018 PRABHJOT FRITZ R COMPUTED TOMOGRAPHY TECHNOLOGIST Ot 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 04/25/2018 FRITZ RICK R COMPUTED TOMOGRAPHY TECHNOLOGIST Ot E11.622 TYPE 2 DIABETES MELLITUS WITH OTHER SKIN 04/25/2018 PRABHJOT FRITZ R COMPUTED TOMOGRAPHY TECHNOLOGIST Ot 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 04/25/2018 PRABHJOT FRITZ R COMPUTED TOMOGRAPHY TECHNOLOGIST Ot I87.2 VENOUS INSUFFICIENCY (CHRONIC) (PERIPHER 04/25/2018 PRABHJOT FRITZ R COMPUTED TOMOGRAPHY TECHNOLOGIST Ot 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 04/30/2018 PRABHJOT FRITZ R COMPUTED TOMOGRAPHY TECHNOLOGIST Ot E11.622 TYPE 2 DIABETES MELLITUS WITH OTHER SKIN 04/30/2018 FRITZ RICK R COMPUTED TOMOGRAPHY TECHNOLOGIST Ot 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 W C 04/30/2018 PRABHJOT FRITZ R COMPUTED TOMOGRAPHY TECHNOLOGIST Ot I87.2 VENOUS INSUFFICIENCY (CHRONIC) (PERIPHER 04/30/2018 PRABHJOT FRITZ R COMPUTED TOMOGRAPHY TECHNOLOGIST Ot L97.222 NON-PRESSURE CHRONIC ULCER OF LEFT CALF 05/01/2018 FRITZ RICK R COMPUTED TOMOGRAPHY TECHNOLOGIST Ot E11.622 TYPE 2 DIABETES MELLITUS WITH OTHER SKIN 05/01/2018 PRABHJOT, FRITZ R COMPUTED TOMOGRAPHY TECHNOLOGIST Ot 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 W [facility] 05/01/2018 PRABHJOT FRITZ R COMPUTED TOMOGRAPHY TECHNOLOGIST Ot I87.2 VENOUS INSUFFICIENCY (CHRONIC) (PERIPHER 05/01/2018 PRABHJOT FRITZ R COMPUTED TOMOGRAPHY TECHNOLOGIST Ot 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 05/02/2018 PRABHJOT, FRITZ R COMPUTED TOMOGRAPHY TECHNOLOGIST Ot E11.622 TYPE 2 DIABETES MELLITUS WITH OTHER SKIN 05/02/2018 PRABHJOT, FRITZ R COMPUTED TOMOGRAPHY TECHNOLOGIST Ot 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 W [facility] 05/02/2018 PRABHJOT FRITZ R COMPUTED TOMOGRAPHY TECHNOLOGIST Ot I87.2 VENOUS INSUFFICIENCY (CHRONIC) (PERIPHER 05/02/2018 PRABHJOT FRITZ R COMPUTED TOMOGRAPHY TECHNOLOGIST Ot 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 05/02/2018 PRABHJOT FRITZ R COMPUTED TOMOGRAPHY TECHNOLOGIST Ot E11.622 TYPE 2 DIABETES MELLITUS WITH OTHER SKIN 05/02/2018 PRABHJOT, FRITZ R COMPUTED TOMOGRAPHY TECHNOLOGIST Ot 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 W [facility] 05/02/2018 PRABHJOT FRITZ R COMPUTED TOMOGRAPHY TECHNOLOGIST Ot I87.2 VENOUS INSUFFICIENCY (CHRONIC) (PERIPHER 05/02/2018 PRABHJOT FRITZ R COMPUTED TOMOGRAPHY TECHNOLOGIST Ot 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 05/04/2018 PRABHJOT FRITZ R COMPUTED TOMOGRAPHY TECHNOLOGIST Ot E11.622 TYPE 2 DIABETES MELLITUS WITH OTHER SKIN 05/04/2018 PRABHJOT FRITZ R COMPUTED TOMOGRAPHY TECHNOLOGIST Ot 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 W [facility] 05/04/2018 PRABHJOT, FRITZ R COMPUTED TOMOGRAPHY TECHNOLOGIST Ot I87.2 VENOUS INSUFFICIENCY (CHRONIC) (PERIPHER 05/04/2018 PRABHJOT FRITZ R COMPUTED TOMOGRAPHY TECHNOLOGIST Ot L97.222 NON-PRESSURE CHRONIC ULCER OF LEFT CALF 05/04/2018 PRABHJOT FRITZ R COMPUTED TOMOGRAPHY TECHNOLOGIST Ot 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 05/07/2018 PRABHJOT FRITZ R COMPUTED TOMOGRAPHY TECHNOLOGIST Ot 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 W [facility] 05/07/2018 PRABHJOT, FRITZ R COMPUTED TOMOGRAPHY TECHNOLOGIST Ot I87.2 VENOUS INSUFFICIENCY (CHRONIC) (PERIPHER 05/07/2018 PRABHJOT, FRITZ R COMPUTED TOMOGRAPHY TECHNOLOGIST Ot L97.222 NON-PRESSURE CHRONIC ULCER OF LEFT CALF 05/07/2018 PRABHJOT, FRITZ R COMPUTED TOMOGRAPHY TECHNOLOGIST Ot 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 05/07/2018 PRABHJOT, FRITZ R COMPUTED TOMOGRAPHY TECHNOLOGIST Ot E11.622 TYPE 2 DIABETES MELLITUS WITH OTHER SKIN 05/07/2018 PRABHJOT, FRITZ R COMPUTED TOMOGRAPHY TECHNOLOGIST Ot 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 W [facility] 05/07/2018 PRABHJOT, FRITZ R COMPUTED TOMOGRAPHY TECHNOLOGIST Ot I87.2 VENOUS INSUFFICIENCY (CHRONIC) (PERIPHER 05/07/2018 PRABHJOT, FRITZ R COMPUTED TOMOGRAPHY TECHNOLOGIST Ot 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 05/12/2018 PRABHJOT FRITZ R COMPUTED TOMOGRAPHY TECHNOLOGIST Ot E11.622 TYPE 2 DIABETES MELLITUS WITH OTHER SKIN 05/12/2018 PRABHJOT, FRITZ R COMPUTED TOMOGRAPHY TECHNOLOGIST Ot 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 W [facility] 05/12/2018 PRABHJOT, FRITZ R COMPUTED TOMOGRAPHY TECHNOLOGIST Ot I87.2 VENOUS INSUFFICIENCY (CHRONIC) (PERIPHER 05/12/2018 PRABHJOT, FRITZ R COMPUTED TOMOGRAPHY TECHNOLOGIST Ot L97.222 NON-PRESSURE CHRONIC ULCER OF LEFT CALF 05/12/2018 PRABHJOT FRITZ R COMPUTED TOMOGRAPHY TECHNOLOGIST Ot 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 05/12/2018 PRABHJOT FRITZ R COMPUTED TOMOGRAPHY TECHNOLOGIST Ot E11.622 TYPE 2 DIABETES MELLITUS WITH OTHER SKIN 05/12/2018 PRABHJOT, FRITZ R COMPUTED TOMOGRAPHY TECHNOLOGIST Ot 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 W [facility] 05/12/2018 PRABHJOT FRITZ R COMPUTED TOMOGRAPHY TECHNOLOGIST Ot I87.2 VENOUS INSUFFICIENCY (CHRONIC) (PERIPHER 05/12/2018 PRABHJOT FRITZ R COMPUTED TOMOGRAPHY TECHNOLOGIST Ot L97.222 NON-PRESSURE CHRONIC ULCER OF LEFT CALF 05/14/2018 ANN ALEX MD Ot E03.9 HYPOTHYROIDISM, UNSPECIFIED 05/14/2018 ANN ALEX MD Ot E11.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 05/14/2018 ANN ALEX MD Ot E78.00 PURE HYPERCHOLESTEROLEMIA, UNSPECIFIED 05/14/2018 ANN ALEX MD Ot F32.9 MAJOR DEPRESSIVE DISORDER, SINGLE EPISOD 05/14/2018 ANN ALEX MD Ot F41.9 ANXIETY DISORDER, UNSPECIFIED 05/14/2018 NAN ALEX MD Ot G47.30 SLEEP APNEA, UNSPECIFIED 05/14/2018 ANN ALEX MD Ot I10 ESSENTIAL (PRIMARY) HYPERTENSION 05/14/2018 ANN ALEX MD Ot I25.10 ATHSCL HEART DISEASE OF [place] CORONARY 05/14/2018 ANN ALEX MD Ot I73.9 [...] SKIN 05/14/2018 ANN ALEX MD Ot Z79.01 CREAMERY WORKER (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 OF ANTICOAGULANT 05/14/2018 ANN ALEX MD Ot Z79.02 CREAMERY WORKER (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 OF ANTITHROMBOTI 05/14/2018 ANN ALEX MD Ot Z79.4 CORRECTION (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 OF INSULIN 05/14/2018 ANN ALEX MD Ot Z79.82 CORRECTION (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 OF ASPIRIN 05/14/2018 ANN ALEX [...] MD, Ot I25.10 ATHSCL HEART DISEASE OF [place] CORONARY 05/17/2018 ANN ALEX MD Ot I73.9 [...] SKIN 05/17/2018 ANN ALEX MD Ot Z79.01 CREAMERY WORKER (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 OF ANTICOAGULANT 05/17/2018 ANN ALEX MD Ot Z79.02 CREAMERY WORKER (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 OF ANTITHROMBOTI 05/17/2018 ANN ALEX MD Ot Z79.4 CORRECTION (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 OF INSULIN 05/17/2018 ANN ALEX MD Ot Z79.82 CREAMERY WORKER (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 OF ASPIRIN 05/17/2018 ANN ALEX [...] MELLITUS WITH OTHER SKIN 05/17/2018 FRITZ RICK COMPUTED TOMOGRAPHY TECHNOLOGIST Ot 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 [facility] 05/17/2018 FRITZ RICK COMPUTED TOMOGRAPHY TECHNOLOGIST Ot I87.2 VENOUS INSUFFICIENCY (CHRONIC) (PERIPHER 05/17/2018 FRITZ RICK COMPUTED TOMOGRAPHY TECHNOLOGIST Ot 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 05/18/2018 FRITZ RICK APRN Ot E11.622 TYPE 2 DIABETES MELLITUS WITH OTHER SKIN 05/18/2018 FRITZ RICK COMPUTED TOMOGRAPHY TECHNOLOGIST Ot 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 [facility] 05/18/2018 FRITZ RICK COMPUTED TOMOGRAPHY TECHNOLOGIST Ot I87.2 VENOUS INSUFFICIENCY (CHRONIC) (PERIPHER 05/18/2018 FRITZ RICK APRN Ot L97.222 NON-PRESSURE CHRONIC ULCER OF LEFT CALF 05/18/2018 FRITZ RICK COMPUTED TOMOGRAPHY TECHNOLOGIST Ot L97.322 NON-PRESSURE CHRONIC ULCER OF LEFT [...] MD, Ot I25.10 ATHSCL HEART DISEASE OF [place] CORONARY 05/20/2018 ANN ALEX MD, Ot I73.9 [...] SKIN 05/20/2018 ANN ALEX MD Ot Z79.01 CREAMERY WORKER (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 OF ANTICOAGULANT 05/20/2018 ANN ALEX MD Ot Z79.02 CREAMERY WORKER (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 OF ANTITHROMBOTI 05/20/2018 ANN ALEX MD Ot Z79.4 CORRECTION (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 OF INSULIN 05/20/2018 ANN ALEX MD Ot Z79.82 CORRECTION (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 OF ASPIRIN 05/20/2018 ANN ALEX [...] OF AORTOCORONARY BYPASS GRAFT 05/21/2018 PRABHJOTFRITZ R COMPUTED TOMOGRAPHY TECHNOLOGIST Ot E11.622 TYPE 2 DIABETES MELLITUS WITH OTHER SKIN 05/21/2018 PRABHJOT FRITZ R COMPUTED TOMOGRAPHY TECHNOLOGIST Ot 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 [facility] 05/21/2018 PRABHJOT, FRITZ R COMPUTED TOMOGRAPHY TECHNOLOGIST Ot I87.2 VENOUS INSUFFICIENCY (CHRONIC) (PERIPHER 05/21/2018 PRABHJOT, FRITZ R COMPUTED TOMOGRAPHY TECHNOLOGIST Ot 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 05/23/2018 PRABHJOT FRITZ R COMPUTED TOMOGRAPHY TECHNOLOGIST Ot E11.622 TYPE 2 DIABETES MELLITUS WITH OTHER SKIN 05/23/2018 PRABHJOT, FRITZ R COMPUTED TOMOGRAPHY TECHNOLOGIST Ot 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 [facility] 05/23/2018 PRABHJOT, FRITZ R COMPUTED TOMOGRAPHY TECHNOLOGIST Ot I87.2 VENOUS INSUFFICIENCY (CHRONIC) (PERIPHER 05/23/2018 PRABHJOT FRITZ R COMPUTED TOMOGRAPHY TECHNOLOGIST Ot 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 05/29/2018 PRABHJOT FRITZ R COMPUTED TOMOGRAPHY TECHNOLOGIST Ot E11.622 TYPE 2 DIABETES MELLITUS WITH OTHER SKIN 05/29/2018 PRABHJOT, FRITZ R COMPUTED TOMOGRAPHY TECHNOLOGIST Ot 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 [facility] 05/29/2018 PRABHJOT, FRITZ R COMPUTED TOMOGRAPHY TECHNOLOGIST Ot I87.2 VENOUS INSUFFICIENCY (CHRONIC) (PERIPHER 05/29/2018 PRABHJOT FRITZ R COMPUTED TOMOGRAPHY TECHNOLOGIST Ot 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 06/04/2018 HERNANDEZ ANDERSON COMPUTED TOMOGRAPHY TECHNOLOGIST Ot G47.30 SLEEP APNEA, UNSPECIFIED 06/28/2018 HERNANDEZ ANDERSON COMPUTED TOMOGRAPHY TECHNOLOGIST Ot G47.30 SLEEP APNEA, UNSPECIFIED 06/28/2018 HERNANDEZ ANDERSON COMPUTED TOMOGRAPHY TECHNOLOGIST Ot G47.30 SLEEP APNEA, UNSPECIFIED 06/29/2018 HERNANDEZ ANDERSON COMPUTED TOMOGRAPHY TECHNOLOGIST Ot G47.33 OBSTRUCTIVE SLEEP APNEA (ADULT) (PEDIATR 06/29/2018 HERNANDEZ ANDERSON COMPUTED TOMOGRAPHY TECHNOLOGIST Ot G47.61 PERIODIC LIMB MOVEMENT DISORDER 06/29/2018 HERNANDEZ ANDERSON COMPUTED TOMOGRAPHY TECHNOLOGIST Ot R09.02 HYPOXEMIA 07/06/2018 HERNANDEZ ANDERSON COMPUTED TOMOGRAPHY TECHNOLOGIST Ot G47.33 OBSTRUCTIVE SLEEP APNEA (ADULT) (PEDIATR 07/06/2018 HERNANDEZ ANDERSON COMPUTED TOMOGRAPHY TECHNOLOGIST Ot G47.61 PERIODIC LIMB MOVEMENT DISORDER 07/06/2018 HERNANDEZ ANDERSON APRN Ot R09.02 HYPOXEMIA 07/25/2018 LEAH ESPINAL, LIU Gallagher Ot E03.9 HYPOTHYROIDISM, UNSPECIFIED 07/25/2018 FRITZ RICK COMPUTED TOMOGRAPHY TECHNOLOGIST Ot E11.622 TYPE 2 DIABETES MELLITUS WITH OTHER SKIN 07/25/2018 FRITZ RICK R COMPUTED TOMOGRAPHY TECHNOLOGIST Ot I87.2 VENOUS INSUFFICIENCY (CHRONIC) (PERIPHER 07/25/2018 PRABHJOT FRITZ R COMPUTED TOMOGRAPHY TECHNOLOGIST Ot L97.222 NON-PRESSURE CHRONIC ULCER OF LEFT CALF 07/25/2018 PRABHJOT FRITZ R COMPUTED TOMOGRAPHY TECHNOLOGIST Ot 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 07/25/2018 FRITZ RICK COMPUTED TOMOGRAPHY TECHNOLOGIST Ot E11.622 TYPE 2 DIABETES MELLITUS WITH OTHER SKIN 07/25/2018 PRABHJOT FRITZ R COMPUTED TOMOGRAPHY TECHNOLOGIST Ot 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 [facility] 07/25/2018 FRITZ RICK COMPUTED TOMOGRAPHY TECHNOLOGIST Ot I87.2 VENOUS INSUFFICIENCY (CHRONIC) (PERIPHER 07/25/2018 PRABHJOT FRITZ R COMPUTED TOMOGRAPHY TECHNOLOGIST Ot L97.222 NON-PRESSURE CHRONIC ULCER OF LEFT CALF 07/25/2018 PRABHJOT FRITZ R COMPUTED TOMOGRAPHY TECHNOLOGIST Ot 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 07/25/2018 PRABHJOT FRITZ R COMPUTED TOMOGRAPHY TECHNOLOGIST Ot E11.622 TYPE 2 DIABETES MELLITUS WITH OTHER SKIN 07/25/2018 SHINE RICKN R COMPUTED TOMOGRAPHY TECHNOLOGIST Ot 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 [facility] 07/25/2018 FRITZ RICK COMPUTED TOMOGRAPHY TECHNOLOGIST Ot I87.2 VENOUS INSUFFICIENCY (CHRONIC) (PERIPHER 07/25/2018 FRITZ RICK R COMPUTED TOMOGRAPHY TECHNOLOGIST Ot L97.222 NON-PRESSURE CHRONIC ULCER OF LEFT CALF 07/25/2018 FRITZ RICK R COMPUTED TOMOGRAPHY TECHNOLOGIST Ot 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 07/25/2018 MICHELLE ESPINAL, LUIS ARMANDO Riddle Ot E11.622 TYPE 2 DIABETES MELLITUS WITH OTHER SKIN 07/25/2018 LUIS ARMANDO MARTINEZ MD Ot 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222 NON-PRESSURE CHRONIC ULCER OF LEFT CALF 07/25/2018 FRITZ RICK R COMPUTED TOMOGRAPHY TECHNOLOGIST Ot 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 07/25/2018 FRITZ RICK R COMPUTED TOMOGRAPHY TECHNOLOGIST Ot E11.622 TYPE 2 DIABETES MELLITUS WITH OTHER SKIN 07/25/2018 PRABHJOT FRITZ R COMPUTED TOMOGRAPHY TECHNOLOGIST Ot 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 [facility] 07/25/2018 PRABHJOT FRITZ R COMPUTED TOMOGRAPHY TECHNOLOGIST Ot I87.2 VENOUS INSUFFICIENCY (CHRONIC) (PERIPHER 07/25/2018 PRABHJOT FRITZ R COMPUTED TOMOGRAPHY TECHNOLOGIST Ot L97.222 NON-PRESSURE CHRONIC ULCER OF LEFT CALF 07/25/2018 PRABHJOT FRITZ R COMPUTED TOMOGRAPHY TECHNOLOGIST Ot 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 07/25/2018 PRABHJOT FRITZ R COMPUTED TOMOGRAPHY TECHNOLOGIST Ot M25.772 OSTEOPHYTE, LEFT ANKLE 07/25/2018 PRABHJOT FRITZ R COMPUTED TOMOGRAPHY TECHNOLOGIST Ot M77.32 CALCANEAL SPUR, LEFT FOOT 07/25/2018 FRITZ RICK COMPUTED TOMOGRAPHY TECHNOLOGIST Ot E11.622 TYPE 2 DIABETES MELLITUS WITH OTHER SKIN 07/25/2018 FRITZ RICK COMPUTED TOMOGRAPHY TECHNOLOGIST Ot 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 [facility] 07/25/2018 PRABHJOT FRITZ R COMPUTED TOMOGRAPHY TECHNOLOGIST Ot I87.2 VENOUS INSUFFICIENCY (CHRONIC) (PERIPHER 07/25/2018 FRITZ RICK R COMPUTED TOMOGRAPHY TECHNOLOGIST Ot L97.222 NON-PRESSURE CHRONIC ULCER OF LEFT CALF 07/25/2018 FRITZ RICK COMPUTED TOMOGRAPHY TECHNOLOGIST Ot 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 07/25/2018 FRITZ RICK COMPUTED TOMOGRAPHY TECHNOLOGIST Ot E11.622 TYPE 2 DIABETES MELLITUS WITH OTHER SKIN 07/25/2018 PRABHJOTFRITZ COMPUTED TOMOGRAPHY TECHNOLOGIST Ot 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 [facility] 07/25/2018 FRITZ RICK R COMPUTED TOMOGRAPHY TECHNOLOGIST Ot I87.2 VENOUS INSUFFICIENCY (CHRONIC) (PERIPHER 07/25/2018 FRITZ RICK R COMPUTED TOMOGRAPHY TECHNOLOGIST Ot 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 07/25/2018 FRITZ RICK COMPUTED TOMOGRAPHY TECHNOLOGIST Ot E11.622 TYPE 2 DIABETES MELLITUS WITH OTHER SKIN 07/25/2018 FRITZ RICK COMPUTED TOMOGRAPHY TECHNOLOGIST Ot 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 [facility] 07/25/2018 PRABHJOT FRITZ R COMPUTED TOMOGRAPHY TECHNOLOGIST Ot I87.2 VENOUS INSUFFICIENCY (CHRONIC) (PERIPHER 07/25/2018 PRABHJOT FRITZ R COMPUTED TOMOGRAPHY TECHNOLOGIST Ot L97.222 NON-PRESSURE CHRONIC ULCER OF LEFT CALF 07/25/2018 FRITZ RICK COMPUTED TOMOGRAPHY TECHNOLOGIST Ot E11.622 TYPE 2 DIABETES MELLITUS WITH OTHER SKIN 07/25/2018 FRITZ RICK R COMPUTED TOMOGRAPHY TECHNOLOGIST Ot 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 [facility] 07/25/2018 FRITZ RICK COMPUTED TOMOGRAPHY TECHNOLOGIST Ot I87.2 VENOUS INSUFFICIENCY (CHRONIC) (PERIPHER 07/25/2018 FRITZ RICK R COMPUTED TOMOGRAPHY TECHNOLOGIST Ot L97.222 NON-PRESSURE CHRONIC ULCER OF LEFT CALF 07/25/2018 FRITZ RICK R COMPUTED TOMOGRAPHY TECHNOLOGIST Ot 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 07/25/2018 FRITZ RICK R COMPUTED TOMOGRAPHY TECHNOLOGIST Ot E11.622 TYPE 2 DIABETES MELLITUS WITH OTHER SKIN 07/25/2018 FRITZ RICK R COMPUTED TOMOGRAPHY TECHNOLOGIST Ot 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 [facility] 07/25/2018 FRITZ RICK COMPUTED TOMOGRAPHY TECHNOLOGIST Ot I87.2 VENOUS INSUFFICIENCY (CHRONIC) (PERIPHER 07/25/2018 FRITZ RICK R COMPUTED TOMOGRAPHY TECHNOLOGIST Ot L97.222 NON-PRESSURE CHRONIC ULCER OF LEFT CALF 07/25/2018 PRABHJOT FRITZ R COMPUTED TOMOGRAPHY TECHNOLOGIST Ot 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 07/25/2018 FRITZ RICK COMPUTED TOMOGRAPHY TECHNOLOGIST Ot E11.622 TYPE 2 DIABETES MELLITUS WITH OTHER SKIN 07/25/2018 FRITZ RICK R COMPUTED TOMOGRAPHY TECHNOLOGIST Ot 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 [facility] 07/25/2018 FRITZ RICK R COMPUTED TOMOGRAPHY TECHNOLOGIST Ot I87.2 VENOUS INSUFFICIENCY (CHRONIC) (PERIPHER 07/25/2018 FRITZ RICK R COMPUTED TOMOGRAPHY TECHNOLOGIST Ot 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 07/25/2018 FRITZ RICK COMPUTED TOMOGRAPHY TECHNOLOGIST Ot E11.622 TYPE 2 DIABETES MELLITUS WITH OTHER SKIN 07/25/2018 FRITZ RICK APRN Ot 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 07/25/2018 [...] MD, Ot I25.10 ATHSCL HEART DISEASE OF [place] CORONARY 08/03/2018 CESAR BORJA MD, Ot Z68.41 BODY MASS INDEX (BMI) 40.0-44.9, ADULT 08/03/2018 CESAR BORJA MD, Ot Z79.01 CREAMERY WORKER (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 OF ANTICOAGULANT 08/03/2018 CESAR BORJA MD, Ot Z79.4 CORRECTION (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 OF INSULIN 08/03/2018 CESAR BORJA MD, Ot Z79.82 CORRECTION (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 OF ASPIRIN 08/03/2018 CESAR BORJA MD, Ot Z79.899 OTHER CREAMERY WORKER (CURRENT) DRUG THERAPY 08/03/2018 CESAR BORJA MD, [...] MD, Ot I25.10 ATHSCL HEART DISEASE OF [place] CORONARY 08/06/2018 CESAR BORJA MD, Ot Z68.41 BODY MASS INDEX (BMI) 40.0-44.9, ADULT 08/06/2018 CESAR BORJA MD, Ot Z79.01 CREAMERY WORKER (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 OF ANTICOAGULANT 08/06/2018 CESAR BORJA MD, Ot Z79.4 CORRECTION (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 OF INSULIN 08/06/2018 CESAR BORJA MD, Ot Z79.82 CREAMERY WORKER (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 OF ASPIRIN 08/06/2018 CESAR BORJA MD, Ot Z79.899 OTHER CORRECTION (CURRENT) DRUG THERAPY 08/06/2018 CESAR BORJA MD, [...] MD, Ot I25.10 ATHSCL HEART DISEASE OF [place] CORONARY 08/08/2018 CESAR BORJA MD, Ot Z68.41 BODY MASS INDEX (BMI) 40.0-44.9, ADULT 08/08/2018 CESAR BORJA MD, Ot Z79.01 CORRECTION (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 OF ANTICOAGULANT 08/08/2018 CESAR BORJA MD, Ot Z79.82 CREAMERY WORKER (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 OF ASPIRIN 08/08/2018 CESAR BORJA MD, Ot Z79.899 OTHER CORRECTION (CURRENT) DRUG THERAPY 08/08/2018 CESAR BORJA MD, [...] MD, Ot I25.10 ATHSCL HEART DISEASE OF [place] CORONARY 08/09/2018 CESAR BORJA MD, Ot Z68.41 BODY MASS INDEX (BMI) 40.0-44.9, ADULT 08/09/2018 CESAR BORJA MD, Ot Z79.01 CREAMERY WORKER (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 OF ANTICOAGULANT 08/09/2018 CESAR BORJA MD Ot Z79.4 CORRECTION (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 OF INSULIN 08/09/2018 CESAR BORJA MD, Ot Z79.82 CREAMERY WORKER (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 OF ASPIRIN 08/09/2018 ANLIKER MD, CESAR L Ot Z79.899 OTHER CREAMERY WORKER (CURRENT) DRUG THERAPY 08/09/2018 CESAR BORJA MD [...] MD Ot I25.10 ATHSCL HEART DISEASE OF [place] CORONARY 08/10/2018 CESAR BORJA MD Ot Z79.01 CREAMERY WORKER (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 OF ANTICOAGULANT 08/10/2018 CESAR BORJA MD Ot Z79.82 CORRECTION (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 OF ASPIRIN 08/10/2018 CESAR BORJA MD, Ot Z79.899 OTHER CORRECTION (CURRENT) DRUG THERAPY 08/10/2018 CESAR BORJA MD, Ot Z86.73 PRSNL HX OF TIA (TIA), AND CEREB INFRC W 08/10/2018 CESAR BORJA MD Ot Z95.1 PRESENCE OF AORTOCORONARY BYPASS GRAFT 08/10/2018 CESAR BORJA MD, Ot E11.9 TYPE 2 DIABETES MELLITUS WITHOUT COMPLIC 08/10/2018 CESAR BORJA MD Ot E66.01 MORBID (SEVERE) OBESITY DUE TO EXCESS CA 08/10/2018 CESAR OBRJA MD Ot H25.12 AGE-RELATED NUCLEAR CATARACT, LEFT EYE 08/10/2018 CESAR BORJA MD Ot I25.10 ATHSCL HEART DISEASE OF [place] CORONARY 08/10/2018 CESAR BORJA MD, Ot Z79.01 CREAMERY WORKER (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 OF ANTICOAGULANT 08/10/2018 CESAR BORJA MD Ot Z79.82 CORRECTION (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 OF ASPIRIN 08/10/2018 CESAR BORJA MD, Ot Z79.899 OTHER CORRECTION (CURRENT) DRUG THERAPY 08/10/2018 CESAR BORJA MD, [...] MD, Ot I25.10 ATHSCL HEART DISEASE OF [place] CORONARY 08/10/2018 CESAR BORJA MD Ot Z68.41 BODY MASS INDEX (BMI) 40.0-44.9, ADULT 08/10/2018 CESAR BORJA MD, Ot Z79.01 CREAMERY WORKER (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 OF ANTICOAGULANT 08/10/2018 CESAR BORJA MD Ot Z79.82 CREAMERY WORKER (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 OF ASPIRIN 08/10/2018 CESAR BORJA MD, Ot Z79.899 OTHER CREAMERY WORKER (CURRENT) DRUG THERAPY 08/10/2018 CESAR BORJA MD, [...] MD Ot I25.10 ATHSCL HEART DISEASE OF [place] CORONARY 08/14/2018 TIAN RIVERA MD Ot J44.9 [...] 09/03/2018 FRITZ RICK APRN Ot 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 09/03/2018 FRITZ RICK APRN Ot I87.2 VENOUS INSUFFICIENCY (CHRONIC) (PERIPHER 09/03/2018 FRITZ RICK COMPUTED TOMOGRAPHY TECHNOLOGIST Ot L97.222 NON-PRESSURE CHRONIC ULCER OF LEFT CALF 09/03/2018 FRITZ RICK COMPUTED TOMOGRAPHY TECHNOLOGIST Ot 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 09/05/2018 HERNANDEZ ANDERSON COMPUTED TOMOGRAPHY TECHNOLOGIST Ot G47.33 OBSTRUCTIVE SLEEP APNEA (ADULT) (PEDIATR 09/05/2018 HERNANDEZ ANDERSON COMPUTED TOMOGRAPHY TECHNOLOGIST Ot G47.34 IDIO SLEEP RELATED NONOBSTRUCTIVE ALVEOL 09/05/2018 HERNANDEZ ANDERSON COMPUTED TOMOGRAPHY TECHNOLOGIST Ot I51.7 CARDIOMEGALY 09/05/2018 HERNANDEZ ANDERSON COMPUTED TOMOGRAPHY TECHNOLOGIST Ot J30.9 ALLERGIC RHINITIS, UNSPECIFIED 09/05/2018 HERNANDEZ ANDERSON COMPUTED TOMOGRAPHY TECHNOLOGIST Ot G47.33 OBSTRUCTIVE SLEEP APNEA (ADULT) (PEDIATR 09/05/2018 HERNANDEZ ANDERSON COMPUTED TOMOGRAPHY TECHNOLOGIST Ot G47.34 IDIO SLEEP RELATED NONOBSTRUCTIVE ALVEOL 09/05/2018 HERNANDEZ ANDERSON COMPUTED TOMOGRAPHY TECHNOLOGIST Ot I51.7 CARDIOMEGALY 09/05/2018 HERNANDEZ ANDERSON COMPUTED TOMOGRAPHY TECHNOLOGIST Ot J30.9 ALLERGIC RHINITIS, UNSPECIFIED Procedures Code Description [place] [address] LIPID PANEL 03/14/2012 19455 ECHO 2D 03/14/2012 88356 HEART CATH 03/14/2012 37.22 LEFT HEART CARDIAC CATH 03/19/2012 88.53 LT HEART ANGIOCARDIOGRAM 03/19/2012 88.56 CORONAR ARTERIOGR-2 CATH 03/19/2012 09356 BMP 04/13/2012 63778 LIVER PANEL (LFT) 04/13/2012 LIPOPROT LIPOPROTIEN PANEL 04/13/2012 30752 GLUCOSE FINGER STICK 04/13/2012 50214 A1C (IN-HOUSE) 04/13/2012 39859 MEASURE BLOOD OXYGEN LEVEL 06/21/2012 Cardiolog Ricardo Ta 08/16/2012 62404 ROUTINE VENIPUNCTURE 09/11/2012 94728 CBC 09/11/2012 12471 CMP 09/11/2012 6707218 GFR CALC (RESULT ONLY) 09/11/2012 Physical Occupational Therapy 01/23/2013 83639 BIOPSY SKIN LESION (SINGLE) 02/18/2013 Results Test [...] 5-8.5 Urine-Protein Negative Negative Urine-RBC 0-2/HPF Urine-Specific [place] 1.020 1.000-1.030 Urine-WBC 0-2/HPF Urobilinogen 1.0 0.2-1.0 [...] Status Pt. Type Provider Facility Loc./Unit Complaint [id number] 06/23/2014 11:47:29 06/23/2014 23:59:59 CLS Outpatient Nathen Parker [id number] 04/23/2014 10:07:45 04/23/2014 23:59:59 CLS Outpatient Nathen Parker [id number] 02/27/2014 09:19:41 02/27/2014 23:59:59 CLS Outpatient DeanTriniNathen Kasper [id number] 02/25/2013 15:23:00 02/25/2013 23:59:59 CLS Outpatient RAMIREZ GHOTRA MD [id number] 02/18/2013 09:44:00 02/18/2013 23:59:59 CLS Outpatient KRYSTLE WASSERMAN APRN [id number] 01/22/2013 16:19:00 01/22/2013 23:59:59 CLS Outpatient YANIRA CRESPO MD [id number] 07/26/2012 15:30:00 07/26/2012 23:59:59 CLS Outpatient YANIRA CRESPO MD [id number] 06/20/2012 09:10:00 06/20/2012 23:59:59 CLS Outpatient MIO GENTILE DO [id number] 06/13/2012 15:27:00 06/13/2012 23:59:59 CLS Outpatient KRYSTLE WASSERMAN APRN [id number] 04/30/2012 08:41:00 04/30/2012 23:59:59 CLS Outpatient KRYSTLE WASSERMAN APRN [id number] 04/19/2012 10:58:00 04/19/2012 23:59:59 CLS Outpatient YANIRA CRESPO MD [id number] 04/12/2012 17:48:00 04/12/2012 23:59:59 [place] [id number] 03/14/2012 08:36:00 03/14/2012 23:59:59 CLS Outpatient KRYSTLE WASSERMAN APRN [id number] 12/06/2012 10:39:00 Document Registration [id number] 10/09/2012 09:21:00 Document Registration [id number] 09/11/2012 11:46:00 Document Registration [id number] 09/11/2012 11:46:00 Document Registration [id number] 08/27/2012 09:52:00 Document Registration [id number] 08/15/2018 09:19:00 08/21/2018 14:57:00 DIS Inpatient JANNY GUO [facility] [id number] 09/22/2017 18:10:00 09/22/2017 23:59:00 DIS Outpatient Liu Pham [id number] 06/22/2017 16:22:00 07/04/2017 10:00:00 DIS Inpatient Toni Toledo [facility] JEFERSON [id number] 05/19/2017 18:39:00 05/19/2017 23:59:00 DIS Outpatient Liu Pham [id number] 04/10/2016 15:23:00 04/10/2016 23:59:00 DIS Outpatient Liu Pham [id number] 06/22/2017 17:08:40 Document Registration [id number] 10/29/2015 11:54:00 Document Registration [id number] 09/05/2018 11:55:00 09/05/2018 23:59:59 CLS Outpatient HERNANDEZ ANDERSON APRN [facility] RAD G47.33 [id number] 08/08/2018 07:45:00 08/08/2018 11:56:00 DIS Outpatient CESAR BORJA MD [facility] CATARACT LEFT EYE [id number] 08/03/2018 07:31:00 08/03/2018 23:59:59 CLS Outpatient CESAR BORJA MD [facility] CATARACT RIGHT EYE [id number] 08/01/2018 05:34:00 08/01/2018 15:21:00 DIS Outpatient CESAR BORJA MD [facility] PREOP CATARACT RIGHT EYE [id number] 07/25/2018 14:14:00 07/25/2018 23:59:59 CLS Preadmit HERNANDEZ ANDERSON APRN [facility] SLEEP SLEEP APNEA [id number] 07/25/2018 13:02:00 07/25/2018 23:59:59 CLS Outpatient TIAN RIVERA MD [facility] CARD CAD,COPD [id number] 06/28/2018 19:12:00 06/29/2018 07:00:00 DIS Outpatient HERNANDEZ ANDERSON APRN [facility] SLEEP SLEEP APNEA [id number] 05/14/2018 13:00:00 05/14/2018 17:15:00 DIS Emergency ANN ALEX MD [facility] ER STROKE SYMPTOMS [id number] 05/01/2018 08:51:00 05/01/2018 23:59:59 CLS Outpatient PRABHJOT, FRITZ R COMPUTED TOMOGRAPHY TECHNOLOGIST [facility] WOUNDCARE [id number] 04/24/2018 08:52:00 04/24/2018 23:59:59 CLS Outpatient PRABHJOT, FRITZ R COMPUTED TOMOGRAPHY TECHNOLOGIST [facility] WOUNDCARE [id number] 04/17/2018 10:00:00 04/17/2018 23:59:59 CLS Outpatient PRABHJOT, FRITZ R COMPUTED TOMOGRAPHY TECHNOLOGIST [facility] WOUNDCARE [id number] 04/10/2018 08:57:00 04/10/2018 23:59:59 CLS Outpatient PRABHJOT, FRITZ R COMPUTED TOMOGRAPHY TECHNOLOGIST [facility] WOUNDCARE [id number] 04/03/2018 08:39:00 04/03/2018 23:59:59 CLS Outpatient PRABHJOT, FRITZ R COMPUTED TOMOGRAPHY TECHNOLOGIST [facility] WOUNDCARE [id number] 03/27/2018 08:55:00 03/27/2018 23:59:59 CLS Outpatient PRABHJOT FRITZ R COMPUTED TOMOGRAPHY TECHNOLOGIST [facility] WOUNDCARE [id number] 03/20/2018 09:16:00 03/20/2018 23:59:59 CLS Outpatient PRABHJOT, FRITZ R COMPUTED TOMOGRAPHY TECHNOLOGIST [facility] WOUNDCARE [id number] 03/13/2018 10:15:00 03/13/2018 23:59:59 CLS Outpatient PRABHJOT, FRITZ R COMPUTED TOMOGRAPHY TECHNOLOGIST [facility] RAD I87.2 [id number] 03/13/2018 09:04:00 03/13/2018 23:59:59 CLS Outpatient PRABHJOT, FRITZ R COMPUTED TOMOGRAPHY TECHNOLOGIST [facility] WOUNDCARE [id number] 03/05/2018 07:31:00 03/06/2018 13:40:00 DIS Outpatient MIGUEL ESPINAL, TIAN [place] [facility] CATH PAD,CAD,HTN,HLP [id number] 02/27/2018 09:15:00 02/27/2018 23:59:59 CLS Outpatient LUIS ARMANDO MARTINEZ MD [facility] WOUNDCARE [id number] 02/20/2018 09:50:00 02/20/2018 23:59:59 CLS Outpatient PRABHJOT FRITZ R COMPUTED TOMOGRAPHY TECHNOLOGIST [facility] LAB I87.2,E11.622 [id number] 02/20/2018 09:02:00 02/20/2018 23:59:59 CLS Outpatient FRITZ RICK COMPUTED TOMOGRAPHY TECHNOLOGIST [facility] WOUNDCARE [id number] 02/13/2018 08:14:00 02/13/2018 23:59:59 CLS Outpatient FRITZ RICK COMPUTED TOMOGRAPHY TECHNOLOGIST [facility] WOUNDCARE [id number] 03/14/2017 10:04:00 03/14/2017 23:59:59 CLS Outpatient LIU PHAM MD [facility] LABNPT E03.9 [id number] 05/24/2016 17:14:00 05/24/2016 20:33:00 DIS Emergency RANDEE EVANS APRN [facility] ER ELEV GLUCOSE [id number] 04/23/2015 14:00:00 04/29/2015 14:00:00 DIS Inpatient OLENA OLIVEIRA MD [facility] 4TH PNEUMONIA/ELEVATED TROPONIN [id number] 02/04/2013 09:01:00 02/13/2013 11:22:00 DIS Outpatient GERMANIA ROMAN [facility] REHAB RESIDUAL L SIDED WEAKNESS S/P STROKE 05/2012 [id number] 01/17/2013 20:50:00 01/18/2013 13:00:00 DIS Inpatient YANIRA CRESPO MD [facility] 4TH CHRONIC PAIN INABILITY TO CARE FOR SELF [id number] 10/15/2012 08:59:00 11/21/2012 00:01:00 DIS Outpatient YANIRA CRESPO MD [facility] REHAB CVA [id number] 09/22/2012 22:20:00 09/23/2012 00:04:00 DIS Emergency ESTEPHANIE OLIVEIRA MD [facility] ER CHEST PAIN [id number] 09/22/2012 22:26:00 09/22/2012 23:59:59 CLS Emergency [id number] 09/17/2012 10:45:00 09/21/2012 12:55:00 DIS Inpatient ROCK CHEN MD [facility] IRF DEBILITY [id number] 09/12/2012 12:58:00 09/17/2012 10:45:00 DIS Inpatient BRANDIN ESPINAL, RAMIREZ Edwards [facility] 4TH PNEUMONIA [id number] 04/23/2015 11:24:00 Document Registration [id number] 08/29/2012 00:03:00 Document Registration [id number] 08/14/2012 02:09:00 Document Registration [id number] 06/12/2012 08:08:00 Document Registration [id number] 05/02/2012 08:09:00 Document Registration [id number] 03/20/2012 14:49:00 Document Registration [id number] 03/29/2011 15:55:00 Document Registration [id number] 08/15/2018 09:19:00 Document Registration
--- NOTE | 2018-09-21 15:48 | Physician Query-Final Dx ---
DEMARCUS MARSHALL 09/21/18 1548: Final Diagnosis Give Final Diagnosis Please give Final Diagnosis JUAN MANUEL TEMPLETON DO 09/21/18 1720: Final Diagnosis Give Final Diagnosis Dr Alexandre saw patient DEMARCUS MARSHALL September 21, 2018 15:48 JUAN MANUEL TEMPLETON DO September 21, 2018 17:20
--- NOTE | 2018-10-02 14:35 | Short Stay Summary-Hospitalist ---
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 He apparently hadn't been feeling well for the past week with no specific findings he been to the emergency room were nothing had been noted. They noted that his oxygen levels a little bit low for him at 88 Go to the custodial at some point he got up and fell. There was no apparent loss of consciousness. He seemed fatigue with no other specific complaints other than left-sided hip pain resultant after his fall as well as some left- sided shoulder pain. On presentation to our emergency room CT head revealed significant old right CVA findings nothing acute is no evidence for intracerebral hemorrhage. Hip and shoulder x-rays revealed no evidence for fracture or acute change. BUN/creatinine were mildly elevated as was his potassium level of 6.2 he was subsequently admitted for IV rehydration and repea t potassium monitoring. Lactate level was mildly elevated at 2.3 but the patient had no evidence for infection or sepsis. Date Seen 09/18/18 Time Seen by a Provider: 09:00 Attending Physician Marlo Alexandre MD PCP Liu Pham MD Referring Physician Date of Admission September 17, 2018 at 13:40 Home Medications & Allergies Home Medications Reviewed patient Home Medication Reconciliation performed by pharmacy medication reconciliations fire extinguisher technician and/or nursing. Patients Allergies have been reviewed. Allergies Allergies Coded Allergies morphine (Verified Adverse Reaction, Intermediate, psychosis, 09/12/12) Past Zvfjhru-Ytvlfs-Wjqcjz Hx Past Med/Social Hx: Reviewed Nursing Past Med/Soc Hx, Reviewed and Corrections made Patient Social History Alcohol Use: Denies Use Recreational Drug Use: No Smoking Status: Former Smoker Type Used: Cigarettes Recent Foreign Travel: No Contact w/other who traveled: No Recent Hopitalizations: No Recent Infectious Disease Expo: No Immunizations Up To Date Tetanus Booster (TDap): Unknown Date of Pneumonia Vaccine: Mar 15, 2012 Date of Influenza Vaccine: Jan 27, 2018 Past Medical History Surgeries: CABG Currently Using CPAP: No Cardiac: Coronary Artery Disease, High Cholesterol, Hypertension, Peripheral Vascular Neurological: Stroke Reproductive: No (unknown) Sexually Transmitted Disease: No (unknown) HIV/AIDS: No Genitourinary: Kidney Infection, Kidney Stones, Renal Failure Gastrointestinal: Gastroesophageal Reflux, Gastrointestinal Bleed, Hiatal Hernia, Ulcer Musculoskeletal: Arthritis Endocrine: Diabetes, Insulin dep, Hypothyroidsim Psychosocial: Sleep Difficulties, Anxiety, Depression History of Blood Disorders: No Adverse Reaction to Blood Bautista: No Family History Reviewed Nursing Family Hx Cardiovascular disease 19 MOTHER Completed stroke 19 FATHER 19 MOTHER FH: emphysema Heart Disease, Diabetes Review of Systems Constitutional: no symptoms reported, see HPI Respiratory: No cough, No dyspnea on exertion, No hemoptysis, No orthopnea, No phlegm, No short of breath, No stridor, No wheezing, No other Cardiovascular: No chest pain, No edema; Hx of Intervention; No palpitations, No syncope, No vascular heart diseas, No other Gastrointestinal: other (Denies change in bowel habit abdominal pain dysphasia melena or bright red blood per rectum.) Genitourinary: no symptoms reported Physical Exam Physical Exam Vital Signs Capillary Refill : Less Than 3 Seconds Height, Weight, BMI Height: 6'2.00" Weight: 294lbs. 5.0oz. 133.309022bw; 37.8 BMI Method:Stated General Appearance: No Apparent Distress, WD/WN Neck: Full Range of Motion, Normal Inspection, Non Tender Respiratory: Chest Non Tender, Lungs Clear, Normal Breath Sounds, No Accessory Muscle Use, No Respiratory Distress Cardiovascular: Regular Rate, Rhythm, No Edema, No Gallop, No JVD, No Murmur, Normal Peripheral Pulses Gastrointestinal: Normal Bowel Sounds, No Organomegaly, No Pulsatile Mass, Non Tender, Soft Extremity: Normal Capillary Refill, No Calf Tenderness, No Pedal Edema Neurologic/Psychiatric: Alert, Normal Mood/Affect, Other (Left-sided hemiparesis noted reportedly stable by the patient no other focal neurologic deficits appreciated.) Skin: Normal Color, Warm/Dry Results Results/Procedures Labs Patient resulted labs reviewed. Short Stay Diagnosis Discharge Diagnosis-Short Stay Admission Diagnosis A/P 1. Hyperkalemia secondary to chronic kidney disease. 2. 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 3. 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 Fall with secondary left hip contusion. 5. Hypertension 6. Coronary artery disease. Final Discharge Diagnosis Same as admission diagnosis. Conclusion Plan IV fluids and steroids were initiated on admission and the following morning potassium and come down to the upper 4 range from 6.2 and the patient stated t hat he felt pre-much at baseline voicing no complaints. He was eating and tolerating liquids well. His blood sugar was elevated as high as 400 after initiation of steroids but they were discontinued as the patient was not wheezing and felt like that he was at his baseline level of function with a history of COPD from past tobaccoism. Advised he discontinue salt substitutes that may contain potassium and will follow up with his primary care provider Dr. Pham with the need for repeat potassium monitoring. Medications were reviewed and he is on nothing that we have listed they could be contributing to hyperkalemia so I would blame it on his chronic renal disease. His CO2 level on all basic metabolic panels obtain was slightly elevated making an associated renal tubular acidosis unlikely. Chest x-ray and UA revealed no evidence for infection and physical exam as well as history did not suggest any obvious evidence for underlying infection. Foot and skin exams revealed no evidence for infection either. Clinical Quality Measures DVT/VTE Risk/Contraindication: Risk Factor Score Per Nursin RFS Level Per Nursing on Admit: 4+=Very High Copy Copies To 1: LIU PHAM MD, MARK D MD October 02, 2018 14:34
== END 2018-09-19 09:34 ==
LOC: EDUNIT# 09:43 → ER 09:43 → UNDOADMOB 13:05 → 4TH 13:05 → UNDODISOB 09-19 13:45
PROVIDERS: ADMIT Internal Medicine; ATTEND Internal Medicine
DX: E87.5 Hyperkalemia (principal); I12.9 Hypertensive chronic kidney disease with stage 1 through stage 4 chronic kidney disease, or unspecified chronic kidney disease; N18.3 Chronic kidney disease, stage 3 (moderate); E11.22 Type 2 diabetes mellitus with diabetic chronic kidney disease; E87.2 Acidosis; J44.0 Chronic obstructive pulmonary disease with (acute) lower respiratory infection; J20.9 Acute bronchitis, unspecified; I25.10 Atherosclerotic heart disease of native coronary artery without angina pectoris; R82.90 Unspecified abnormal findings in urine; E11.51 Type 2 diabetes mellitus with diabetic peripheral angiopathy without gangrene; E78.00 Pure hypercholesterolemia, unspecified; I73.9 Peripheral vascular disease, unspecified; K21.9 Gastro-esophageal reflux disease without esophagitis; E03.9 Hypothyroidism, unspecified; F41.9 Anxiety disorder, unspecified; F32.9 Major depressive disorder, single episode, unspecified; G47.30 Sleep apnea, unspecified; I69.354 Hemiplegia and hemiparesis following cerebral infarction affecting left non-dominant side; S70.02XA Contusion of left hip, initial encounter; M25.512 Pain in left shoulder; W19.XXXA Unspecified fall, initial encounter; Y92.122 Bedroom in nursing home as the place of occurrence of the external cause; Z79.01 Long term (current) use of anticoagulants; Z79.82 Long term (current) use of aspirin; Z79.4 Long term (current) use of insulin; Z79.899 Other long term (current) drug therapy; Z95.1 Presence of aortocoronary bypass graft
CPT/HCPCS: 36415; 51702; 70450; 71045; 80048; 80053; 81000; 82962; 83605; 85025; 85610; 85730; 87040; 87088; 93005; 93041; 94640; 94760; 96361; 96374; G0378

== ENCOUNTER → 2018-09-20 | Outpatient (CLI) | payer MEDICAID, MEDICARE, OTHER ==
[~2018-09-20] MED LIST changes: +BENZ100C18 PO; +CALC1POW TOP; +DIVA500T15 PO; +POVI3780 TP; +[UNRECOGNIZED DRUG - CODE] TP
== END ==
LOC: WOUNDCARE 10:36
PROVIDERS: ATTEND Nurse Practitioner
DX: T63.301A Toxic effect of unspecified spider venom, accidental (unintentional), initial encounter (principal); L97.119 Non-pressure chronic ulcer of right thigh with unspecified severity
CPT/HCPCS: 99212

== ENCOUNTER → 2018-09-27 | Outpatient (CLI) | payer OTHER | LOC: WOUNDCARE 10:21 | PROVIDERS: ATTEND Nurse Practitioner | DX: T63.301A Toxic effect of unspecified spider venom, accidental (unintentional), initial encounter (principal); L97.119 Non-pressure chronic ulcer of right thigh with unspecified severity | CPT/HCPCS: 99212 ==

== ENCOUNTER → 2018-10-16 | Outpatient (CLI) | payer OTHER | LOC: WOUNDCARE 08:29 | PROVIDERS: ATTEND Nurse Practitioner | DX: T63.301A Toxic effect of unspecified spider venom, accidental (unintentional), initial encounter (principal); L97.119 Non-pressure chronic ulcer of right thigh with unspecified severity | CPT/HCPCS: 99212 ==

== ENCOUNTER 2018-10-17 19:57 | Emergency (ER) | payer MEDICARE, MEDICAID ==
[~2018-10-17] VITALS: Ht 188 cm; Wt 142.4 kg
--- NOTE | 2018-10-17 20:24 | NUR ---
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 pt alert gcs 15. pt is here from [facility]. pt apparantely has had abnornal labs recently and was referred here. pt appears slightly noncoopeerative and says " no needles". pt refused to get out of w/c and refuses gown. pt denies chest and abd pain,.,. denies n/v/d. denies dyspnea and no acute sighns of dyspnea noted though resp shallow nonlabored. pt appears obese and over weight. lungs crackles bases bilaterally more so on right. abd firm and distended neg pain with palpation and neg pulsating massess noted. sl swelling bilateral lower legs noted. pt has open lesion right posterior thigh he has been getting tx for.there is brownish color skin all way around wound but no redness.pt has left arm paralysis. done gunjan pt at 2036.
--- NOTE | 2018-10-17 20:57 | NUR ---
brigitte did ekg
--- NOTE | 2018-10-17 21:00 | NUR ---
i applied tele shows sr 76
--- NOTE | 2018-10-17 21:03 | Diagnostic Imaging Report ---
INDICATION: Hypoxia. COMPARISON: 09/17/2018. EXAMINATION: Single view of the chest was obtained. FINDINGS: There has been development of consolidated infiltrate in the left lower lobe since previous exam with obscuration of the left hemidiaphragm. The left upper lung is clear. Right lung is clear. There is cardiomegaly without pulmonary edema. Median sternotomy changes are noted. IMPRESSION: Findings are consistent with consolidated pneumonia in the left lower lobe. Dictated by: Dictated on workstation # [id number]
--- NOTE | 2018-10-17 21:07 | ED General ---
General Stated Complaint: TOLD BY DR FIGUEROA TO COME TO ER Source of Information: Patient (PT IS LIMITED HISTORIAN, HX OF DEMENTIA), Longterm Records, Old Records History of Present Illness Date Seen by Provider: Oct 17, 2018 Time Seen by Provider: 20:30 Initial Comments PT ARRIVES VIA POV FROM [facility] C/O SHORTNESS OF BREATH PT WAS SEEN BY WIRE STOCKKEEPER AT DR. FIGUEROA'S OFFICE THIS AM FOR THESE SAME ISSUES PT STATES HE HAS "BEEN HERE ALL DAY GETTING LAB TESTS AND "TRYING TO GET BLOOD GASES" STATES HIS O2 SATS WERE IN THE 70'S AT THE OFFICE THIS AM, WAS PLACED ON O2 IN THE OFFICE, THEN SENT BACK TO [facility], WITHOUT O2. THEN HAD OUTPATIENT TESTS DONE STATES HE WAS TOLD TO COME TO THIS ER AND BE TRANSFERRED TO [place] STATES HE HAD LAB YESTERDAY AND TODAY, AND CT SCAN TODAY WELL PT STATES "BLOOD WASN'T RIGHT" PT HAS CHRONIC RENAL FAILURE AND HIS CREATININE WAS 3.0 TODAY--BASELINE IS 1.5- 1.[address] Loja", UNDERCOVER OPERATOR PT DENIES CHEST PAIN OR SHORTNESS OF BREATH AT THIS TIME--STATES HE WAS SHORT OF BREATH AT DR. FIGUEROA'S OFFICE EARLIER TODAY NO FEVER NO COUGH PT WAS ADMITTED HERE 09/17-09/19, O2 SATS WERE 88% AT THAT TIME AND PT HAD ELEVATED BUN/CREATININE/K+ AT THAT TIME WELL. PT IS DNR. PCP: DR. LYNN UNDERCOVER OPERATOR: DR. Loja" LAP MACHINE TENDER: DR. FIGUEROA Allergies and Home Medications Allergies Coded Allergies: morphine (Verified Adverse Reaction, Intermediate, psychosis, 09/12/12) Home Medications Acetaminophen 325 Mg Tablet, 650 MG PO Q4H PRN for PAIN-MILD OR TEMPATURE, (Reported) Apixaban 5 Mg Tablet, 5 MG PO BID, (Reported) Aspirin 81 Mg Tablet.dr, 81 MG PO DAILY, (Reported) Buspirone HCl 15 Mg Tablet, 15 MG PO BID, (Reported) Calcium Alginate 1 Gm Powder, TOP DAILY, (Reported) APPLY TO LEFT ANKLE; CLEANSE LEFT LATERAL ANKLE WOUND WITH NORAML SALINE (JOSEPH P DRY) APPLY CALCIUM ALGINATE WITH SILVER TO WOUNDBED, COVER WOUND WITH GAUZE, SECURE DRESSING WITH ROLLER GAUZE, THEN SECURE DRESSING WITH MEDIPORE TAPE, CHANGE DRESSING DAILY. Cholecalciferol (Vitamin D3) 2,000 Unit Capsule, 2,000 UNIT PO DAILY, (Reported) Divalproex Sodium 125 Mg Tablet.dr, 125 MG PO TID, (Reported) Doxycycline Hyclate 100 Mg Capsule, 100 MG PO BID WITH MEALS Prescribed by: DESI LAZARO on 09/19/18 0845 Gabapentin 300 Mg Capsule, 600 MG PO TID, (Reported) TAKES 2 (300MG) CAPSULES Insulin Aspart 100 Unit/1 Ml Susp, 10 UNIT SQ TIDAC, (Reported) Insulin Determir 1,000 Units/10 Ml Soln, 38 UNITS SQ BID, (Reported) Iodine/Potassium Iodide 100 Ml Solution, TP BID, (Reported) APPLY TO ALL OPEN AREAS BLE TOPICALLY TWICE DAILY; APPLY TO LEFT LEG ABEL AREA OPEN TILL RESOLVED Levothyroxine Sodium 200 Mcg Tablet, 200 MCG PO DAILY, (Reported) Loperamide HCl 2 Mg Tablet, PO UD PRN for DIARRHEA, (Reported) GIVE 2 TABS AFTER FIRST LOOSE STOOL THEN 1 TAB AFTER EACH OTHER LOOSE STOOL, MAX OF 4 PILLS PER DAY Loratadine 10 Mg Tablet, 10 MG PO DAILY, (Reported) Melatonin 3 Mg Tablet, 3 MG PO HS, (Reported) Metoprolol Tartrate 25 Mg Tablet, 25 MG PO BID, (Reported) HOLD FOR SBP<100 AND PULSE <50 Multivitamin with Minerals 1 Each Tablet, 1 TAB PO DAILY, (Reported) Povidone-Iodine 3,780 Ml Solution, TP DAILY, (Reported) APPLY TO POSTERIOR UPPER RIGHT LEG TOPICALLY DAILY FOR SPIDER BITE Ranitidine HCl 150 Mg Tablet, 150 MG PO DAILY, (Reported) Rivastigmine 9.5 Mg Patch, 9.5 MG TD DAILY, (Reported) Venlafaxine HCl 75 Mg Tab, 75 MG PO BID, (Reported) Patient Home Medication List Home Medication List Reviewed: Yes Review of Systems Review of Systems Constitutional: No fever Respiratory: see HPI, short of breath Cardiovascular: No chest pain Musculoskeletal: other (DENIES SWELLING) Psychiatric/Neurological: See HPI, Pre-Existing Deficit (PERIPHERAL NEUROPATHY, DEMENTIA) Past Zzwdeqk-Wasodf-Eheoap Hx Patient Social History Alcohol Use: Occasionally Uses Recreational Drug Use: No Smoking Status: Former Smoker (QUIT 05/2012) Type Used: Cigarettes, Pipe Recent Foreign Travel: No Contact w/Someone Who Travel: No Recent Hopitalizations: No Immunizations Up To Date Tetanus Booster (TDap): Unknown Date of Pneumonia Vaccine: Mar 15, 2012 Date of Influenza Vaccine: Jan 27, 2018 Past Medical History Surgeries: Yes (CAROTID ENDARTERECTOMY; CARDIAC CATHS WITH BILATERAL LEG STENTS AND STENTS IN HEART; 3 VESSEL CABG 05/2012; FEEDING TUBE POST-CABG--REMOVED; BILATERAL ROTATOR CUFF REPAIR; BILATERAL CATARACTS) Cardiac, CABG, Eye Surgery, Vascular Surgery Respiratory: Yes (PNEUMONIA WITH SEPSIS) Pneumonia, Sleep Apnea, COPD Currently Using CPAP: No Cardiac: Yes (CARDIAC CATHS--3 VESSEL CABG 05/2102; STENTS IN LEGS AND IN HEAR T; CAROTID ENDARTERECTOMY; CHF) Atrial Fibrillation, Coronary Artery Disease, High Cholesterol, Hypertension, Peripheral Vascular Neurological: Yes (PERIPHERAL NEUROPATHY; VASCULAR DEMENTIA; RIGHT SIDED CVA WITH LEFT SIDED PARALYSIS; ) Dementia, Neuropathy, Stroke, TIA, Vertigo Reproductive Disorders: No (unknown) Sexually Transmitted Disease: No (unknown) HIV/AIDS: No Genitourinary: Yes Kidney Infection, Bladder Infection, Kidney Stones, Renal Failure Gastrointestinal: Yes Gastroesophageal Reflux, Gastrointestinal Bleed, Hiatal Hernia, Ulcer Musculoskeletal: Yes (CHRONIC LEFT SHOULDER PAIN; IMPAIRED MOBILITY; FALLS) Arthritis Endocrine: Yes Diabetes, Insulin dep, Hypothyroidsim HEENT: Yes Cataract, Dysphagia Cancer: No Psychosocial: Yes Sleep Difficulties, Anxiety, Depression Integumentary: Yes (CELLULITIS LEFT FOOT; WOUND RIGHT POSTERIOR THIGH; LEFT ANKLE) Blood Disorders: No Adverse Reaction/Blood Tranf: No Family Medical History Cardiovascular disease 19 MOTHER Completed stroke 19 FATHER 19 MOTHER FH: emphysema Heart Disease, Diabetes Physical Exam Vital Signs Capillary Refill : Height, Weight, BMI Height: 6'2.00" Weight: 294lbs. 5.0oz. 133.407884zu; 37.8 BMI Method:Stated General Appearance: No Apparent Distress, WD/WN Respiratory: Normal Breath Sounds, No Accessory Muscle Use, Decreased Breath Sounds (IN BASES) Cardiovascular: Regular Rate, Rhythm, No Murmur Gastrointestinal: Non Tender, Soft Extremity: Normal Inspection Neurologic/Psychiatric: Alert, Normal Mood/Affect, electric train driver II-XII Norm as Tested, Other (SLIGHTLY CONFUSED/MEMORY IMPAIRMENT; LEFT SIDE WEAKNESS--OLD CVA ) Skin: Normal Color, Warm/Dry, Other (CHRONIC /HEALING WOUND TO RIGHT POSTERIOR THIGH--NO DRAINAGE OR ERYTHEMA OR SIGNS OF INFECTION. ) Focused Exam Lactate Level Lactic Acid Level Progress/Results/Core Measures Suspected Sepsis SIRS Temperature: Pulse: Respiratory Rate: Blood Pressure / Mean: Results/Orders Lab Results My Orders Medications Given in ED Vital Signs/I&O Capillary Refill : Progress Note : Progress Note NO DETERIORATION IN PT'S CONDITION DURING ER STAY CT OF CHEST DONE EARLIER TODAY WAS READ NO ACUTE PROCESS, +CHOLELITHIASIS ALSO HAD BILATERAL LOWER EXTREMITY VENOUS DOPPLER--NO DVT, PER RADIOLOGIST REPORT ECG Initial ECG Impression Date: Oct 17, 2018 Initial ECG Impression Time: 20:57 Initial ECG Rate: 74 Initial ECG Rhythm: Normal Sinus Initial ECG Impression: Nonspecific Changes (ST DEPRESSION LATERAL LEADS) Initial ECG Comparisson: Unchanged Diagnostic Imaging Comments CXR--LLL PNEUMONIA, PER RADIOLOGIST REPORT AT 2105 Reviewed: Reviewed by Me Departure Communication (Admissions) NO BEDS AVAILABLE HERE--[facility] [address]--CALLED [facility], NO CRITICAL CARE BEDS, BUT HAVE MEDICAL BEDS. 2239--SPOKE WITH DR. MARINO, ACCEPTS PT FOR ADMIT. Impression Primary Impression: Left lower lobe pneumonia Additional Impressions: Chronic kidney disease Acute on chronic respiratory failure Acute on chronic renal failure Paroxysmal atrial fibrillation IDDM (insulin dependent diabetes mellitus) ASVD (arteriosclerotic vascular disease) Elevated troponin Disposition: SHT-TRM HOSP Condition: Stable Transfer Transfer Facility: [facility] Method of Transfer: EMS Departure-Patient Inst. Referrals: LIU LYNN MD (PCP/Family) Primary Care Physician RANJEET LEAL DO Oct 17, 2018 21:07
--- NOTE | 2018-10-17 21:10 | NUR ---
labs to lab by me
--- NOTE | 2018-10-17 21:10 | NUR ---
bp machine is 114/58 p ox r/a is 90. i applied 2/n/c o2
[2018-10-17 21:15] LABS: BASOPHILS # (AUTO) 0.1 10^3/uL (0.0-0.1); BASOPHILS % (AUTO) 1 % (0-10); EOSINOPHILS # (AUTO) 0.5 10^3/uL (0.0-0.3); EOSINOPHILS % (AUTO) 4 % (0-10); HEMATOCRIT 42 % (40-54); HEMOGLOBIN 13.5 G/DL (13.3-17.7); LYMPHOCYTES # (AUTO) 4.6 X 10^3 (1.0-4.0); LYMPHOCYTES % (AUTO) 41 % (12-44); MEAN CORPUSCULAR HEMOGLOBIN 29 PG (25-34); MEAN CORPUSCULAR HGB CONC 32 G/DL (32-36); MEAN CORPUSCULAR VOLUME 89 FL (80-99); MEAN PLATELET VOLUME 10.5 FL (7.4-10.4); MONOCYTES # (AUTO) 1.6 X 10^3 (0.0-1.0); MONOCYTES % (AUTO) 15 % (0-12); NEUTROPHILS # (AUTO) 4.5 X 10^3 (1.8-7.8); NEUTROPHILS % (AUTO) 40 % (42-75); PLATELET COUNT 252 10^3/uL (130-400); RED CELL DISTRIBUTION WIDTH 15.1 % (10.0-14.5); WHITE BLOOD COUNT 11.2 10^3/uL (4.3-11.0)
[2018-10-17] MEDS ORDERED: AZITHROMYCIN INJECTION 500 MG in NS (IVPB) 250 ML IV ONE (21:15)
[2018-10-17] MEDS ORDERED: cefTRIAXone FOR IV USE 1,000 MG in WATER (STERILE) FOR INJECTION 10 ML IV ONE (21:15)
[2018-10-17 21:27] LABS: INR 1.1 (0.8-1.4); PROTHROMBIN TIME PATIENT 14.4 SEC (12.2-14.7)
--- NOTE | 2018-10-17 21:29 | NUR ---
more labs by me from james p ox 2/n/c is 93.
[2018-10-17 21:37] LABS: ALBUMIN 3.4 GM/DL (3.2-4.5); BILIRUBIN,TOTAL 0.3 MG/DL (0.1-1.0); CALCIUM 8.7 MG/DL (8.5-10.1); CREATININE SERUM 3.16 MG/DL (0.60-1.30); MAGNESIUM 1.9 MG/DL (1.8-2.4); TOTAL PROTEIN 7.1 GM/DL (6.4-8.2)
[2018-10-17 21:57] LABS: TSH (THYROID ANALYZER) 11.17 UIU/ML (0.35-4.94); VALPROIC ACID 34.5 UG/ML (50.0-100.0)
[2018-10-17 22:10] LABS: ABG BASE EXCESS 1.9 MMOL/L (-2.5-2.5); ABG OXYGEN SATURATION 93 % (94-100); ABG PCO2 42 MMHG (35-45); ABG PH 7.41 (7.37-7.43); ABG PO2 67 MMHG (79-93); ABG TCO2 27.5 MMOL/L (21.0-31.0)
[2018-10-17 22:12] LABS: ALLENS TEST YES-POS; INSPIRED O2 2L; PATIENT TEMP 97.5; VENTILATOR NO
--- NOTE | 2018-10-17 22:22 | NUR ---
pt remains here by self alert gcs 15. resp remains shallow nonlabored. no other acute sighns of dyspnea noted. pt denies c/os. ua to lab by me. bp machine is 122/69 ausc hr 80 reg ausc resp 24. recheck temp 97.8 p ox 2/n/c is 96. tele shows sr 75.
[2018-10-17 22:30] LABS: FREE T4 (FREE THYROXINE) 0.95 NG/DL (0.70-1.48)
[2018-10-17 22:45] LABS: CLARITY,URINE CLEAR; COLOR,URINE AMBER; GLUCOSE, URINE (UA) NEGATIVE (NEGATIVE); KETONES,URINE 1+ (NEGATIVE); LEUKOCYTE ESTERASE ,URINE 1+ (NEGATIVE); NITRITE,URINE NEGATIVE (NEGATIVE); PH,URINE 5 (5-9); PROTEIN,URINE 2+ (NEGATIVE); UROBILINOGEN,URINE 1 MG/DL (NORMAL)
[2018-10-17 22:52] LABS: BACTERIA,URINE MODERATE /HPF; BILIRUBIN,URINE 1+ (NEGATIVE)
--- NOTE | 2018-10-17 22:52 | NUR ---
i called [facility] to tell them of the transfer.
[2018-10-17 22:53] LABS: HYALINE CASTS, URINE >50 /LPF
--- NOTE | 2018-10-17 22:55 | NUR ---
i helped pt sighn consent for transfer. no family been here.
--- NOTE | 2018-10-17 23:02 | NUR ---
mike wood called pt room number is [id number]
--- NOTE | 2018-10-17 23:18 | NUR ---
i called report to mike wood room [id number] . spoke with maverick.
--- NOTE | 2018-10-17 23:25 | NUR ---
i called captain of ems
--- NOTE | 2018-10-17 23:45 | NUR ---
pt remains alert gcs 15. pt keeps taking o2 off . pt here by self . bp machine is 131/67 auc hr 80 reg ausc resp 24 shallow nolabored. recheck temp is 97.2 p ox r/a is 93. o2 placed back on. tele shows sr 79.
--- NOTE | 2018-10-17 23:53 | NUR ---
i called ems dispatch
--- NOTE | 2018-10-18 00:18 | NUR ---
i spoke with dispatch and the captain.
--- NOTE | 2018-10-18 00:39 | NUR ---
pt keeps taking o2 off. pt being slightly noncooperative. pt remains alert gcs 15 with no acute sighns of dyspnea noted though resp remains shallow nonlabored
--- NOTE | 2018-10-18 00:44 | NUR ---
ems here for transfer. i gave report and papers for transfer to them
--- NOTE | 2018-10-18 00:50 | NUR ---
ems is leaving.
[2018-10-18 04:10] VITALS: BP 0/0
--- NOTE | 2018-10-18 09:34 | NUR ---
called to have [facility] come parts picker patient wheel chair.
== END 2018-10-18 00:50 | disposition short-term general hospital (02) ==
LOC: EDUNIT# 19:57 → ER 19:59
DX: J18.1 Lobar pneumonia, unspecified organism (principal); I25.10 Atherosclerotic heart disease of native coronary artery without angina pectoris; I12.9 Hypertensive chronic kidney disease with stage 1 through stage 4 chronic kidney disease, or unspecified chronic kidney disease; N18.9 Chronic kidney disease, unspecified; E11.22 Type 2 diabetes mellitus with diabetic chronic kidney disease; E11.51 Type 2 diabetes mellitus with diabetic peripheral angiopathy without gangrene; I48.0 Paroxysmal atrial fibrillation; J96.20 Acute and chronic respiratory failure, unspecified whether with hypoxia or hypercapnia; N17.9 Acute kidney failure, unspecified; E78.00 Pure hypercholesterolemia, unspecified; E03.9 Hypothyroidism, unspecified; F41.9 Anxiety disorder, unspecified; F32.9 Major depressive disorder, single episode, unspecified; K21.9 Gastro-esophageal reflux disease without esophagitis; R74.8 Abnormal levels of other serum enzymes; F03.90 Unspecified dementia, unspecified severity, without behavioral disturbance, psychotic disturbance, mood disturbance, and anxiety; Z87.19 Personal history of other diseases of the digestive system; Z87.448 Personal history of other diseases of urinary system; Z87.442 Personal history of urinary calculi; Z82.49 Family history of ischemic heart disease and other diseases of the circulatory system; Z86.73 Personal history of transient ischemic attack (TIA), and cerebral infarction without residual deficits; Z88.5 Allergy status to narcotic agent; Z79.01 Long term (current) use of anticoagulants; Z79.82 Long term (current) use of aspirin; Z79.4 Long term (current) use of insulin; Z98.890 Other specified postprocedural states; Z95.1 Presence of aortocoronary bypass graft; Z87.891 Personal history of nicotine dependence
CPT/HCPCS: 36415; 36600; 71045; 80053; 80164; 81000; 82805; 83605; 83735; 83880; 84439; 84443; 84484; 85025; 85610; 85730; 87040; 87088; 93005; 93041; 96374; 96375; 99291

== ENCOUNTER → 2018-10-17 | Outpatient (CLI) | payer MEDICARE, MEDICAID ==
[2018-10-17 12:25] LABS: BASOPHILS % (AUTO) 0 % (0-10); EOSINOPHILS # (AUTO) 0.3 10^3/uL (0.0-0.3); EOSINOPHILS % (AUTO) 4 % (0-10); HEMATOCRIT 45 % (40-54); HEMOGLOBIN 14.5 G/DL (13.3-17.7); LYMPHOCYTES % (AUTO) 44 % (12-44); MEAN CORPUSCULAR HEMOGLOBIN 29 PG (25-34); MEAN CORPUSCULAR HGB CONC 32 G/DL (32-36); MEAN CORPUSCULAR VOLUME 90 FL (80-99); MONOCYTES # (AUTO) 1.1 X 10^3 (0.0-1.0); MONOCYTES % (AUTO) 12 % (0-12); NEUTROPHILS # (AUTO) 3.6 X 10^3 (1.8-7.8); NEUTROPHILS % (AUTO) 40 % (42-75); PLATELET COUNT 236 10^3/uL (130-400)
[2018-10-17 12:46] LABS: ALBUMIN 3.5 GM/DL (3.2-4.5); BILIRUBIN,TOTAL 0.3 MG/DL (0.1-1.0); CALCIUM 8.9 MG/DL (8.5-10.1); CREATININE SERUM 3.09 MG/DL (0.60-1.30); POTASSIUM 5.3 MMOL/L (3.6-5.0); TOTAL PROTEIN 7.2 GM/DL (6.4-8.2)
--- NOTE | 2018-10-17 14:17 | Diagnostic Imaging Report ---
PROCEDURE: CT chest without contrast. TECHNIQUE: Multiple contiguous axial images were obtained through the chest without the use of intravenous contrast. Auto Exposure Controls were utilized during the CT exam to meet ALARA standards for radiation dose reduction. INDICATION: Dyspnea and right leg swelling. Comparison is made with prior CT angiogram of the chest from 08/14/2012. Changes of median sternotomy are identified. There are coronary arterial calcifications present. No axillary lymphadenopathy is seen. No definite hilar or mediastinal lymphadenopathy is identified. There is no pericardial or pleural fluid detected. Lungs appear to be fairly clear. No dominant mass or infiltrate is detected. Upper abdomen does show a large stone within the gallbladder. IMPRESSION: 1. Unremarkable noncontrast CT of the chest. 2. Cholelithiasis. Dictated by: Dictated on workstation # [id number]
--- NOTE | 2018-10-17 15:27 | Diagnostic Imaging Report ---
PROCEDURE: US Venous Lower Ext Adriano. INDICATION: Leg swelling and dyspnea. EXAMINATIONS: Both grayscale and color Doppler imaging of the deep veins of the lower extremities were performed with waveform analysis. FINDINGS: There is no intraluminal filling defect. Normal continuous flow is seen throughout the deep venous systems of both legs, and there is normal response to augmentation. The deep veins compress normally. IMPRESSION: No ultrasound evidence of deep venous thrombosis in either lower extremity. Dictated by: Dictated on workstation # [id number]
== END ==
LOC: RT 12:00
PROVIDERS: ATTEND Internal Medicine Critical Care Medicine
DX: R06.00 Dyspnea, unspecified (principal); J98.4 Other disorders of lung; M79.89 Other specified soft tissue disorders; R09.02 Hypoxemia
CPT/HCPCS: 36415; 71250; 80053; 83880; 85025; 93970

== ENCOUNTER 2018-10-29 07:46 | Emergency (ER) | payer MEDICARE, MEDICAID ==
[~2018-10-29] VITALS: Ht 188 cm; Wt 142.6 kg
--- NOTE | 2018-10-29 08:00 | ED EENT ---
History of Present Illness General Chief Complaint: Nasal Problems Stated Complaint: NOSE BLEED Source: patient, EMS, retirement records Exam Limitations: other (and previous stroke) History of Present Illness Date Seen by Provider: Oct 29, 2018 Time Seen by Provider: 07:57 Initial Comments This 73-year-old white male presents with self-limited epistaxis from the retirement. Patient is on Kelli Eris following a stroke. Patient denies digital manipulation or nasal injury. He denies history of epistaxis in the past. The patient's bleeding had stopped by the time he presented to the emergency department. There is no history of significant bruising or other bleeding. Allergies and Home Medications Allergies Coded Allergies: morphine (Verified Adverse Reaction, Intermediate, psychosis, 09/12/12) Home Medications Acetaminophen 325 Mg Tablet, 650 MG PO Q4H PRN for PAIN-MILD OR TEMPATURE, (Reported) Apixaban 5 Mg Tablet, 5 MG PO BID, (Reported) Aspirin 81 Mg Tablet.dr, 81 MG PO DAILY, (Reported) Atorvastatin Calcium 40 Mg Tablet, 40 MG PO HS, (Reported) Benzonatate 100 Mg Capsule, 200 MG PO Q8H PRN for COUGH, (Reported) Buspirone HCl 5 Mg Tablet, 5 MG PO BID, (Reported) Calcium Alginate 1 Gm Powder, TOP DAILY, (Reported) APPLY TO LEFT ANKLE; CLEANSE LEFT LATERAL ANKLE WOUND WITH NORAML SALINE (KEEP DRY) APPLY CALCIUM ALGINATE WITH SILVER TO WOUNDBED, COVER WOUND WITH GAUZE, SECURE DRESSING WITH ROLLER GAUZE, THEN SECURE DRESSING WITH MEDIPORE TAPE, CHANGE DRESSING DAILY. Cholecalciferol (Vitamin D3) 2,000 Unit Capsule, 2,000 UNIT PO DAILY, (Reported) Divalproex Sodium 500 Mg Tab.er.24h, 1,500 MG PO HS, (Reported) TAKES 3 (500MG) TABLETS Doxycycline Hyclate 100 Mg Capsule, 100 MG PO BID WITH MEALS Prescribed by: DESI LAZARO on 09/19/18 0845 Gabapentin 300 Mg Capsule, 600 MG PO TID, (Reported) TAKES 2 (300MG) CAPSULES Insulin Aspart 100 Unit/1 Ml Susp, 15 UNIT SQ TIDAC, (Reported) Insulin Determir 1,000 Units/10 Ml Soln, 40 UNITS SQ BID, (Reported) Iodine/Potassium Iodide 100 Ml Solution, TP BID, (Reported) APPLY TO ALL OPEN AREAS BLE TOPICALLY TWICE DAILY; APPLY TO LEFT LEG ABEL AREA OPEN TILL RESOLVED Levothyroxine Sodium 150 Mcg Tablet, 150 MCG PO DAILY, (Reported) Loperamide HCl 2 Mg Tablet, PO UD PRN for DIARRHEA, (Reported) GIVE 2 TABS AFTER FIRST LOOSE STOOL THEN 1 TAB AFTER EACH OTHER LOOSE STOOL, MAX OF 4 PILLS PER DAY Melatonin 3 Mg Tablet, 6 MG PO HS, (Reported) Metoprolol Tartrate 25 Mg Tablet, 25 MG PO BID, (Reported) HOLD FOR SBP<100 AND PULSE <50 Multivitamin with Minerals 1 Each Tablet, 1 TAB PO DAILY, (Reported) Povidone-Iodine 3,780 Ml Solution, TP DAILY, (Reported) APPLY TO POSTERIOR UPPER RIGHT LEG TOPICALLY DAILY FOR SPIDER BITE Ranitidine HCl 150 Mg Tablet, 150 MG PO DAILY, (Reported) Venlafaxine HCl 75 Mg Tab, 75 MG PO BID, (Reported) Patient Home Medication List Home Medication List Reviewed: Yes Review of Systems Review of Systems Constitutional: No chills, No fever Eyes: Denies Blurred Vision Ears: Denies Dizziness Nose: see HPI, clots, epistaxis; denies pain Mouth: denies clots, denies bloody discharge Throat: denies pain, denies swelling Respiratory: No cough Cardiovascular: No chest pain Gastrointestinal: No abdominal pain, No melena, No vomiting Musculoskeletal: no symptoms reported; No back pain Skin: no symptoms reported Neurological: No Symptoms Reported Hematologic/Lymphatic: See HPI, Blood Clots; Denies Easy Bleeding, Denies Easy Bruising Immunological/Allergic: no symptoms reported Past Vcpekrd-Yckiuw-Wxjroq Hx Past Med/Social Hx: Reviewed Nursing Past Med/Soc Hx Patient Social History Alcohol Use: Past History Recreational Drug Use: No (recently stopped smoking and drinking ) Smoking Status: Former Smoker Type Used: Cigarettes Recent Foreign Travel: No Contact w/Someone Who Travel: No Recent Hopitalizations: No Immunizations Up To Date Tetanus Booster (TDap): Unknown Date of Pneumonia Vaccine: Mar 15, 2012 Date of Influenza Vaccine: Jan 27, 2018 Past Medical History Surgeries: Yes ( carotid endartetectomy) CABG Respiratory: Yes Pneumonia, Sleep Apnea Currently Using CPAP: No Cardiac: Yes Coronary Artery Disease, High Cholesterol, Hypertension, Peripheral Vascular Neurological: Yes Stroke Reproductive Disorders: No (unknown) Sexually Transmitted Disease: No (unknown) HIV/AIDS: No Kidney Infection, Kidney Stones, Renal Failure Gastrointestinal: Yes Gastroesophageal Reflux, Gastrointestinal Bleed, Hiatal Hernia, Ulcer Musculoskeletal: Yes (CHRONIC LEFT SHOULDER PAIN) Arthritis Endocrine: Yes Diabetes, Insulin dep, Hypothyroidsim Cancer: No Psychosocial: Yes Sleep Difficulties, Anxiety, Depression Integumentary: Yes (CELLULITIS LEFT FOOT) Blood Disorders: No Adverse Reaction/Blood Tranf: No Family Medical History Cardiovascular disease 19 MOTHER Completed stroke 19 FATHER 19 MOTHER FH: emphysema Heart Disease, Diabetes Physical Exam Vital Signs Vital Signs - First Documented 10/29/18 07:46 Temp 96.2 Pulse 78 Resp 16 B/P (MAP) 135/81 (99) Pulse Ox 94 O2 Delivery Room Air Height, Weight, BMI Height: 6'2.00" Weight: 314lbs. 5.0oz. 142.332027vh; 37.8 BMI Method:Stated General Appearance: WD/WN, no apparent distress Eyes: bilateral eye normal inspection Ears: bilateral ear auricle normal Nose: dried blood (noted in both nares.) Mouth/Throat: normal mouth inspection Neck: non-tender, full range of motion, normal inspection Cardiovascular: regular rate, rhythm Respiratory: lungs clear Gastrointestinal: normal bowel sounds, non tender, soft Neurologic/Psychiatric: no motor/sensory deficits, alert Skin: normal color, warm/dry, other (no bruising is noted.) Progress/Results/Core Measures Results/Orders Lab Results Laboratory Tests Test 10/29/18 07:57 Range/Units White Blood Count 8.4 4.3-11.0 10^3/uL Red Blood Count 4.41 4.35-5.85 10^6/uL Hemoglobin 12.8 L 13.3-17.7 G/DL Hematocrit 40 40-54 % Mean Corpuscular Volume 90 80-99 FL Mean Corpuscular Hemoglobin 29 25-34 PG Mean Corpuscular Hemoglobin Concent 32 32-36 G/DL Red Cell Distribution Width 15.1 H 10.0-14.5 % Platelet Count 178 130-400 10^3/uL Mean Platelet Volume 10.8 H 7.4-10.4 FL Neutrophils (%) (Auto) 49 42-75 % Lymphocytes (%) (Auto) 36 12-44 % Monocytes (%) (Auto) 11 0-12 % Eosinophils (%) (Auto) 4 0-10 % Basophils (%) (Auto) 0 0-10 % Neutrophils # (Auto) 4.1 1.8-7.8 X 10^3 Lymphocytes # (Auto) 3.1 1.0-4.0 X 10^3 Monocytes # (Auto) 0.9 0.0-1.0 X 10^3 Eosinophils # (Auto) 0.3 0.0-0.3 10^3/uL Basophils # (Auto) 0.0 0.0-0.1 10^3/uL Prothrombin Time 13.0 12.2-14.7 SEC INR Comment 0.9 0.8-1.4 Sodium Level 138 135-145 MMOL/L Potassium Level 4.7 3.6-5.0 MMOL/L Chloride Level 105 98-107 MMOL/L Carbon Dioxide Level 23 21-32 MMOL/L Anion Gap 10 5-14 MMOL/L Blood Urea Nitrogen 39 H 7-18 MG/DL Creatinine 1.87 H 0.60-1.30 MG/DL Estimat Glomerular Filtration Rate 36 BUN/Creatinine Ratio 21 Glucose Level 114 H 70-105 MG/DL Calcium Level 8.5 8.5-10.1 MG/DL Corrected Calcium 9.2 8.5-10.1 MG/DL Total Bilirubin 0.4 0.1-1.0 MG/DL Aspartate Amino Transf (AST/SGOT) 37 H 5-34 U/L Alanine Aminotransferase (ALT/SGPT) 54 0-55 U/L Alkaline Phosphatase 94 40-136 U/L Total Protein 6.0 L 6.4-8.2 GM/DL Albumin 3.1 L 3.2-4.5 GM/DL My Orders Orders - DESI DIAZ MD Cbc With Automated Diff (10/29/18 07:55) Comprehensive Metabolic Panel (10/29/18 07:55) Protime With Inr (10/29/18 07:55) Vital Signs/I&O 10/29/18 07:46 Temp 96.2 Pulse 78 Resp 16 B/P (MAP) 135/81 (99) Pulse Ox 94 O2 Delivery Room Air Progress Progress Note : Time: 10:27 Progress Note The patient was observed in the emergency department for approximately 2 hours. During this time patient slept comfortably in the emergency department and had no further epistaxis. The patient's PT and INR were normal as expected for a patient on Eliquis. Patient was discharged with instructions to the nursing staff to follow-up with Dr. Liu Pham for determination on how to proceed with the patient's Eliquis Departure Impression Primary Impression: Epistaxis Disposition: 01 HOME, SELF-CARE Condition: Improved Departure-Patient Inst. Decision time for Depature: 10:29 Referrals: LIU PHAM MD (PCP/Family) Primary Care Physician Patient Instructions: Nosebleeds (DC) Add. Discharge Instructions: Call Dr. Pham for his decision on when to reinitiate Eliquis. Come back for any problems or questions. Hold Eliquis for now.All discharge instructions reviewed with patient and/or family. Voiced understanding. DESI DIAZ MD Oct 29, 2018 08:00
[2018-10-29 08:02] LABS: BASOPHILS % (AUTO) 0 % (0-10); EOSINOPHILS # (AUTO) 0.3 10^3/uL (0.0-0.3); EOSINOPHILS % (AUTO) 4 % (0-10); HEMATOCRIT 40 % (40-54); HEMOGLOBIN 12.8 G/DL (13.3-17.7); LYMPHOCYTES # (AUTO) 3.1 X 10^3 (1.0-4.0); LYMPHOCYTES % (AUTO) 36 % (12-44); MEAN CORPUSCULAR HEMOGLOBIN 29 PG (25-34); MEAN CORPUSCULAR HGB CONC 32 G/DL (32-36); MEAN CORPUSCULAR VOLUME 90 FL (80-99); MEAN PLATELET VOLUME 10.8 FL (7.4-10.4); MONOCYTES # (AUTO) 0.9 X 10^3 (0.0-1.0); MONOCYTES % (AUTO) 11 % (0-12); NEUTROPHILS # (AUTO) 4.1 X 10^3 (1.8-7.8); NEUTROPHILS % (AUTO) 49 % (42-75); PLATELET COUNT 178 10^3/uL (130-400); RED CELL DISTRIBUTION WIDTH 15.1 % (10.0-14.5); WHITE BLOOD COUNT 8.4 10^3/uL (4.3-11.0)
[2018-10-29 08:18] LABS: INR 0.9 (0.8-1.4)
[2018-10-29 08:25] LABS: ALBUMIN 3.1 GM/DL (3.2-4.5); BILIRUBIN,TOTAL 0.4 MG/DL (0.1-1.0); CALCIUM 8.5 MG/DL (8.5-10.1); CREATININE SERUM 1.87 MG/DL (0.60-1.30); POTASSIUM 4.7 MMOL/L (3.6-5.0)
--- NOTE | 2018-10-29 10:04 | NUR ---
CALLED [facility] TO LET THEM KNOW PT IS READY FOR EXPORT CLERK
[2018-10-29 11:40] VITALS: BP 122/78
== END 2018-10-29 11:40 | disposition home or self-care (01) ==
LOC: EDUNIT# 07:46 → ER 07:47
DX: R04.0 Epistaxis (principal); G47.30 Sleep apnea, unspecified; I25.10 Atherosclerotic heart disease of native coronary artery without angina pectoris; E78.00 Pure hypercholesterolemia, unspecified; I73.9 Peripheral vascular disease, unspecified; K21.9 Gastro-esophageal reflux disease without esophagitis; I10 Essential (primary) hypertension; E11.9 Type 2 diabetes mellitus without complications; E03.9 Hypothyroidism, unspecified; F41.9 Anxiety disorder, unspecified; F32.9 Major depressive disorder, single episode, unspecified; Z88.5 Allergy status to narcotic agent; Z87.442 Personal history of urinary calculi; Z87.19 Personal history of other diseases of the digestive system; Z82.49 Family history of ischemic heart disease and other diseases of the circulatory system; Z87.448 Personal history of other diseases of urinary system; Z79.01 Long term (current) use of anticoagulants; Z79.82 Long term (current) use of aspirin; Z86.73 Personal history of transient ischemic attack (TIA), and cerebral infarction without residual deficits; Z79.4 Long term (current) use of insulin; Z87.891 Personal history of nicotine dependence; Z95.1 Presence of aortocoronary bypass graft; Z87.01 Personal history of pneumonia (recurrent)
CPT/HCPCS: 36415; 80053; 85025; 85610

== ENCOUNTER → 2018-10-30 | Outpatient (CLI) | payer MEDICARE, MEDICAID ==
[~2018-10-30] MED LIST changes: +DIVA125T32 PO; +LEVO200T6 PO; +RIVA1PAT3 TD
== END ==
LOC: WOUNDCARE 08:10
PROVIDERS: ATTEND Nurse Practitioner
DX: T63.301A Toxic effect of unspecified spider venom, accidental (unintentional), initial encounter (principal); L97.119 Non-pressure chronic ulcer of right thigh with unspecified severity
CPT/HCPCS: 99212

== ENCOUNTER 2018-11-01 14:16 | Outpatient (CLI) | payer MEDICARE, MEDICAID ==
[~2018-11-01] VITALS: Ht 188 cm; Wt 130.3 kg
[~2018-11-01 14:16] MED LIST changes: -DIVA125T32 PO; -LEVO200T6 PO; -RIVA1PAT3 TD
[2018-11-01] MEDS ORDERED: RIVA1PAT3 TD (15:22)
[2018-11-01] MEDS ORDERED: LEVO200T6 PO (15:22)
[2018-11-01] MEDS ORDERED: DIVA125T32 PO (15:22)
[2018-11-01] MEDS ORDERED: LORA10TA7 PO (15:22)
[2018-11-01] MEDS ORDERED: BUSP15TA60 PO (15:22)
== END 2018-11-01 15:34 | disposition home or self-care (01) ==
LOC: PREOP 14:16
PROVIDERS: ATTEND Surgery
DX: Z01.818 Encounter for other preprocedural examination (principal)
CPT/HCPCS: 87081

== ENCOUNTER → 2018-11-13 | Outpatient (CLI) | payer MEDICARE, MEDICAID ==
[~2018-11-13] MED LIST changes: +DIVA125T32 PO; +LEVO200T6 PO; +RIVA1PAT3 TD
== END ==
LOC: WOUNDCARE 08:14
PROVIDERS: ATTEND Nurse Practitioner
DX: T63.301A Toxic effect of unspecified spider venom, accidental (unintentional), initial encounter (principal); L97.119 Non-pressure chronic ulcer of right thigh with unspecified severity
CPT/HCPCS: 99212

== ENCOUNTER → 2018-11-20 | Outpatient (CLI) | payer MEDICARE, MEDICAID ==
[~2018-11-20] MED LIST changes: +ATOR40TA PO; +CALC-938 PO; +CALC500T3 PO; +CARV6.25 PO; +CHOL100045 PO; +DIVA125C PO; +METO-395 PO; +OXYM30SP NS; +PRED10TA22 PO; +SODI50SP NS
== END ==
LOC: WOUNDCARE 08:12
PROVIDERS: ATTEND Nurse Practitioner
DX: L97.119 Non-pressure chronic ulcer of right thigh with unspecified severity (principal); T63.301A Toxic effect of unspecified spider venom, accidental (unintentional), initial encounter
CPT/HCPCS: 99212

== ENCOUNTER 2018-11-21 02:03 | Inpatient (IN) | payer MEDICARE, MEDICAID ==
[2018-11-21] VITALS (13 sets, daily range): BP systolic 118–155; BP diastolic 70–94
[~2018-11-21] VITALS: Ht 188 cm; Wt 133.0 kg
[~2018-11-21 02:03] MED LIST changes: -ATOR40TA PO; -CALC-938 PO; -CALC500T3 PO; -CARV6.25 PO; -CHOL100045 PO; -DIVA125C PO; -METO-395 PO; -OXYM30SP NS; -PRED10TA22 PO; -SODI50SP NS
--- OUTSIDE RECORDS SUMMARY | 2018-11-21 02:09 | XMS REPORT ---
Author Author Migration, Doctor Organization [facility] Address Unknown Phone Unavailable Care Team Providers Care Manager Order Name Role Phone Migration, Doctor Unavailable Unavailable PROBLEMS Type Condition ICD9-CM Code LIU18-PW Code Onset Dates Condition Status SNOMED Code Problem Nausea with vomiting 787.01 Active 27936483 Problem Diarrhea 787.91 Active 68592763 Problem Pain in joint, shoulder region 719.41 Active 829996853 Problem Pain in joint, lower leg 719.46 Active 986629069 Problem Unspecified local infection of skin and subcutaneous tissue 686.9 Active 583244497 Problem Unspecified disorder of skin and subcutaneous tissue 709.9 Active 82935927 Problem 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 093953569 Problem Unspecified episodic mood disorder 296.90 Active 913229245 Problem Vascular dementia, uncomplicated 290.40 Active 41573640 Problem Major depressive disorder, recurrent, unspecified F33.9 Active 90951122 Problem 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 Active 106822006 Problem Vascular dementia with behavioral disturbance F01.51 Active 321612164068839 Problem Unspecified hypotension 458.9 Active 21091468 Problem Other and unspecified hyperlipidemia 272.4 Active 70013942 Problem Diabetes mellitus without mention of complication, type II or unspecified type, not stated as uncontrolled 250.00 Active 888157386 Problem 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 Active 97767604 Problem Unspecified mood [affective] disorder F39 Active 89604627 ALLERGIES Substance Reaction Event Type Date Status Morphine Unknown Drug Allergy Aug, Active Zocor 40 Mg Tablet BLOODY DIARRHEA Non Drug Allergy Aug, Active ENCOUNTERS Encounter Location Date Diagnosis [facility] [address] [id number] [address] Oct, [facility] [address] [id number] [address] September, Unspecified mood [affective] disorder F39 and Vascular dementia with behavioral disturbance F01.51 [facility] [id number] [address] Aug, Major depressive disorder, recurrent, unspecified F33.9 [facility] [id number] [place] [address] Aug, Major depressive disorder, recurrent, unspecified F33.9 and Vascular dementia with behavioral disturbance F01.51 [place] [id number] [place] [address] Feb, Major depressive disorder, recurrent, unspecified F33.9 and Vascular dementia with behavioral disturbance F01.51 [place] [id number] [place] [address] Dec, Major depressive disorder, recurrent, unspecified F33.9 [place] [id number] [place] [address] Oct, Unspecified mood [affective] disorder F39 [place] [id number] [place] [address] September, Major depressive disorder, recurrent, unspecified F33.9 [place] [id number] [place] [id number] May, [place] [id number] [place] [address] May, Major depressive disorder, recurrent, unspecified F33.9 [facility] [id number] [place] [address] Feb, Major depressive disorder, recurrent, unspecified F33.9 [facility] [id number] [place] [address] Jan, Major depressive disorder, recurrent, unspecified F33.9 [facility] [id number] [place] [address] Jan, Major depressive disorder, recurrent, unspecified F33.9 [facility] [id number] [place] [address] Jan, Major depressive disorder, recurrent, unspecified F33.9 [facility] [id number] [place] [address] Dec, Major depressive disorder, recurrent, unspecified F33.9 [facility] [id number] [place] [address] Nov, Major depressive disorder, recurrent, unspecified F33.9 [facility] [id number] [place] [address] Nov, 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 [place] [id number] [place] [address] Oct, Unspecified mood [affective] disorder F39 ; Major depressive disorder, recurrent, unspecified F33.9 and Vascular dementia with behavioral disturbance F01.51 [facility] [id number] [place] [address] May, 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 [place] [id number] [place] [address] Aug, [facility] [id number] [place] [address] Aug, [facility] [id number] [place] [address] Feb, [facility] [id number] [place] [address] Feb, [facility] [id number] [place] [address] Feb, [facility] [id number] [place] [address] Feb, [facility] [id number] [place] [address] Jan, [facility] [place] [facility] [address] [id number] [place] [address] 20 Jan, 2012 [facility] [place] [facility] [address] [id number] [place] [address] 18 Jan, 2012 [facility] [place] [facility] [address] [id number] [place] [address] 10 Jan, 2012 [facility] [place] [facility] [address] [id number] [place] [address] 09 Sep, 2012 [facility] [place] [facility] [address] [id number] [place] [address] 06 Sep, 2012 [facility] [place] [facility] [address] [id number] [place] [address] 06 Jan, 2012 [facility] [place] [facility] [address] [id number] [place] [address] 05 Jan, 2012 [facility] [place] [facility] [address] [id number] [place] [address] 05 Jan, 2012 [facility] [place] [facility] [address] [id number] [place] [address] Dec, [facility] [place] [facility] [address] [id number] [place] [address] Nov, [facility] [place] [facility] [address] [id number] [place] [address] Nov, [facility] [place] [facility] [address] [id number] [place] [address] Nov, [facility] [place] [facility] [address] [id number] [place] [address] Nov, [facility] [place] [facility] [address] [id number] [place] [address] Nov, [facility] [place] [facility] [address] [id number] [place] [address] Oct, [facility] [place] [facility] [address] [id number] [place] [address] 17 Oct, 2012 [facility] [address] [id number] [place] [address] 07 Oct, 2012 [facility] [place] [facility] [address] [id number] [place] [address] 05 Oct, 2012 [facility] [address] [id number] [place] [address] Oct, [facility] [place] [facility] [address] [id number] [place] [address] September, [facility] [address] [id number] [place] [address] September, [facility] [address] [id number] [place] [address] 30 Aug, 2012 [facility] [address] [id number] [place] [address] Aug, [facility] [place] [facility] [address] [id number] [place] [address] Aug, [facility] [address] [id number] [place] [address] 28 Jul, 2012 [facility] [place] [facility] [address] [id number] [place] [address] Jul, [facility] [address] [id number] [address] Jul, [facility] [place] [facility] [address] [id number] [place] [address] Jul, [facility] [place] [facility] [address] [id number] [place] [address] Jul, [facility] [place] [facility] [address] [id number] [place] [address] Jul, [facility] [place] [facility] [address] [id number] [place] [address] Jul, [facility] [place] [facility] [address] [id number] [place] [address] 18 Jul, 2012 [facility] [address] [id number] [place] [address] 14 Jul, 2012 [facility] [address] [id number] [place] [address] 18 Jun, 2012 [facility] [address] [id number] [place] [address] 08 Jun, 2012 [facility] [address] [id number] [place] [address] 06 Jun, 2012 [facility] [address] [id number] [place] [address] 31 May, 2012 [facility] [address] [id number] [place] [address] 30 May, 2012 [facility] [address] [id number] [place] [address] 29 May, 2012 [facility] [address] [id number] [place] [address] 28 May, 2012 [facility] [address] [id number] [place] [address] 31 Apr, 2012 [facility] [address] [id number] [place] [address] 31 Apr, 2012 [facility] [address] [id number] [place] [address] 18 Apr, 2012 [facility] [address] [id number] [place] [address] 18 Apr, 2012 [facility] [address] [id number] [place] [address] 17 Apr, 2012 [facility] [address] [id number] [place] [address] 17 Apr, 2012 [facility] [address] [id number] [place] [address] 14 Apr, 2012 [facility] [place] [facility] [address] [id number] [place] [address] 14 Apr, 2012 [facility] [place] [facility] [address] [id number] [place] [address] 14 Apr, 2012 [facility] [place] [facility] [address] [id number] [place] [address] 14 Apr, 2012 [facility] [place] [facility] [address] [id number] [place] [address] 10 Apr, 2012 [facility] [place] [facility] [address] [id number] [place] [address] 10 Apr, 2012 [facility] [place] [facility] [address] [id number] [place] [address] 10 Apr, 2012 [facility] [place] [facility] [address] [id number] [place] [address] 10 Apr, 2012 [facility] [place] [facility] [address] [id number] [place] [address] 07 Apr, 2012 [facility] [place] [facility] [address] [id number] [place] [address] 05 Apr, 2012 [facility] [place] [facility] [address] [id number] [place] [address] 05 Apr, 2012 [facility] [place] [facility] [address] [id number] [place] [address] 05 Apr, 2012 [facility] [place] [facility] [address] [id number] [place] [address] 05 Apr, 2012 [facility] [place] [facility] [address] [id number] [place] [address] Mar, [facility] [place] [facility] [address] [id number] [place] [address] Mar, [facility] [place] [facility] [address] [id number] [place] [address] 29 Mar, 2012 [facility] [place] [facility] [address] [id number] [address] Mar, [facility] [place] [facility] [address] [id number] [place] [address] Mar, [facility] [place] [facility] [address] [id number] [place] [address] Mar, [facility] [place] [facility] [address] [id number] [place] [address] Mar, [facility] [place] [facility] [address] [id number] [place] [address] Mar, [facility] [place] [facility] [id number] [place] [address], [place] [address] Mar, [facility] [place] [facility] [address] [id number] [place] [address] Mar, [facility] [place] [facility] [id number] [place] [address] Mar, [facility] [place] [facility] [address] [id number] [place] [address] Mar, [facility] [place] [facility] [address] [id number] [address] Mar, [facility] [place] [facility] [address] [id number] [address] Feb, [facility] [place] [facility] [address] [id number] [place] [address] 31 Feb, 2012 [facility] [place] [facility] [address] [id number] [place] [address] 30 Feb, 2012 [facility] [place] [facility] [address] [id number] [place] [address] 30 Feb, 2012 [facility] [place] [facility] [address] [id number] [place] [address] 15 Feb, 2012 [facility] [place] [facility] [address] [id number] [place] [address] 15 Feb, 2012 [facility] [place] [facility] [address] [id number] [place] [address] Feb, [facility] [place] [facility] [address] [id number] [place] [address] Feb, [facility] [place] [facility] [address] [id number] [place] [address] Feb, [facility] [place] [facility] [address] [id number] [place] [address] Feb, [facility] [place] [facility] [address] [id number] [place] [address] Jan, [facility] [place] [facility] [address] [id number] [place] [address] Dec, [facility] [place] [facility] [address] [id number] [place] [address] Dec, [facility] [place] [facility] [address] [id number] [place] [address] Nov, [facility] [place] [facility] [address] [id number] [place] [address] Nov, [facility] [place] [facility] [address] [id number] [place] [address] Nov, [facility] [place] [facility] [address] [id number] [place] [address] Nov, [facility] [place] [facility] [address] [id number] [place] [address] Oct, [facility] [place] [facility] [address] [id number] [place] [address] Oct, [facility] [place] [facility] [address] [id number] [place] [address] Oct, [facility] [place] [facility] [address] [id number] [place] [address] Oct, [facility] [place] [facility] [address] [id number] [place] [address] September, [facility] [place] [facility] [address] [id number] [place] [address] September, [facility] [place] [facility] [address] [id number] [place] [address] Aug, [facility] [place] [facility] [address] [id number] [place] [address] Aug, [facility] [place] [facility] [address] [id number] [place] [address] Aug, [facility] [place] [facility] [address] [id number] [place] [address] Jul, [facility] [place] [facility] [address] [id number] [place] [address] Jul, [facility] [place] [facility] [address] [id number] [place] [address] Jun, [facility] [place] [facility] [address] [id number] [place] [address] Jun, [facility] [place] [facility] [address] [id number] [place] [address] Jun, [facility] [place] [facility] [address] [id number] [place] [address] Apr, [facility] [place] [facility] [address] [id number] [place] [address] Apr, [facility] [place] [facility] [address] [id number] [place] [address] Mar, [facility] [place] [facility] [address] [id number] [place] [address] Mar, [facility] [place] [facility] [address] [id number] [place] [address] Feb, [facility] [place] [facility] [address] [id number] [place] [address] Dec, [facility] [place] [facility] [address] [id number] [place] [address] Nov, IMMUNIZATIONS No Known Immunizations SOCIAL HISTORY Never Assessed REASON FOR VISIT [facility] [place] C[place] VITAL SIGNS MEDICATIONS Medication Instructions Dosage Frequency Start Date End Date Duration Status Lipitor 20 mg take 1 tablet (20 mg) by oral route once daily May, Active Synthroid 25 mcg 1 tablet by Oral route 1 time per day Jul, Active Lomotil 2.5-0.025 mg 2 tablet by Oral route 3 times per day PRN Nov, Active Xanax 1 mg 1 tablet by Oral route 2 times per day PRN Jan, Active Nitrostat 0.4 mg 1 tablet by Sublingual route 3 times per day PRN chest pain; may repeat q 5 min x 2 Jan, Active Levemir Flexpen 100 unit/mL (3 mL) 20 Unit by Subcutaneous route 1 time per day at bedtime Nov, Active Neurontin 600 mg take 1 tablet (600 mg) by oral route 3 times per day Oct, Active Ketoconazole 2 % 1 an by Topical route 1 time per day Nov, Active Seroquel 50 mg 1 tablet by Oral route 1 time per day Nov, Active Oxycodone-Acetaminophen 10-325 mg 1 tablet by Oral route every 6 hours Jan, Active NovoLog Flexpen 100 unit/mL inject 10 Units by Subcutaneous route before meals 3 times per day Nov, Active Bactrim DS 800-160 mg 1 tablet by Oral route 2 times per day for 7 day(s) Aug, Active Celexa 10 mg 1 tablet by Oral route 1 time per day Nov, Active acetaminophen-hydrocodone 10-500 mg take 1 tablet by Oral route every 6 hours as needed for pain PRN (MAY FILL ON OR AFTER 01-08-13) Dec, Active Rivastigmine 4.6 mg/24 hour 1 Patch 24 hr by Transdermal route 1 time per day Nov, Active Cane dx: gait disturbance Apr, Active RESULTS No Results PROCEDURES No Known procedures [...]
--- OUTSIDE RECORDS SUMMARY | 2018-11-21 02:10 | XMS REPORT ---
Author Author Migration, Doctor Organization [facility] Address Unknown Phone Unavailable Care Team Providers Care Permastone Applicator Name Role Phone Migration, Doctor Unavailable Unavailable PROBLEMS Type Condition ICD9-CM Code [id number] Code Onset Dates Condition Status SNOMED Code Problem Nausea with vomiting 787.01 Active 92457943 Problem Diarrhea 787.91 Active 89268651 Problem Pain in joint, shoulder region 719.41 Active 741923554 Problem Pain in joint, lower leg 719.46 Active 537082566 Problem Unspecified local infection of skin and subcutaneous tissue 686.9 Active 479844202 Problem Unspecified disorder of skin and subcutaneous tissue 709.9 Active 53190708 Problem 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 703043847 Problem Unspecified episodic mood disorder 296.90 Active 011168193 Problem Vascular dementia, uncomplicated 290.40 Active 70544752 Problem Major depressive disorder, recurrent, unspecified F33.9 Active 54092144 Problem 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 Active 467553067 Problem Vascular dementia with behavioral disturbance F01.51 Active [id number] Problem Unspecified hypotension 458.9 Active 10273666 Problem Other and unspecified hyperlipidemia 272.4 Active 15668204 Problem Diabetes mellitus without mention of complication, type II or unspecified type, not stated as uncontrolled 250.00 Active 642273029 Problem 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 Active 68355593 Problem Unspecified mood [affective] disorder F39 Active [id number] ALLERGIES No Information ENCOUNTERS Encounter Location Date Diagnosis [facility] [address] [facility] [id number] [address] Oct, [facility] [address] [facility] [id number], [place] [address] Oct, [facility] [address] [facility] [id number], [place] [address] September, Unspecified mood [affective] disorder F39 and Vascular dementia with behavioral disturbance F01.51 [facility] [id number] [place] [address] Aug, Major depressive disorder, recurrent, unspecified F33.9 [facility] [id number] [place] [address] Aug, Major depressive disorder, recurrent, unspecified F33.9 and Vascular dementia with behavioral disturbance F01.51 [facility] [id number] [place] [address] Feb, Major depressive disorder, recurrent, unspecified F33.9 and Vascular dementia with behavioral disturbance F01.51 [facility] [id number] [place] [address] Dec, Major depressive disorder, recurrent, unspecified F33.9 [place] [id number] [place] [address] Oct, Unspecified mood [affective] disorder F39 [facility] [id number] [place] [address] September, Major depressive disorder, recurrent, unspecified F33.9 [facility] [id number] [place] [id number] May, [facility] [id number] [place] [address] May, Major depressive disorder, recurrent, unspecified F33.9 [facility] [id number] [place] [address] Feb, Major depressive disorder, recurrent, unspecified F33.9 [facility] [id number] [place] [address] Jan, Major depressive disorder, recurrent, unspecified F33.9 [facility] [id number] [place] [address] Jan, Major depressive disorder, recurrent, unspecified F33.9 [facility] [address] [address] Jan, Major depressive disorder, recurrent, unspecified F33.9 [facility] [id number] [place] [address] Dec, Major depressive disorder, recurrent, unspecified F33.9 [facility] [id number] [place] [address] Nov, Major depressive disorder, recurrent, unspecified F33.9 [facility] [id number] [place] [address] Nov, 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 [facility] [id number] [place] [address] Oct, Unspecified mood [affective] disorder F39 ; Major depressive disorder, recurrent, unspecified F33.9 and Vascular dementia with behavioral disturbance F01.51 [facility] [id number] [place] [address] May, 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 [facility] [id number] [place] [address] Aug, [facility] [address] [place] [address] Aug, [facility] [address] [place] [address] Feb, [facility] [id number] [place] [address] Feb, [facility] [id number] [place] [address] Feb, [facility] [address] [place] [address] Feb, [facility] [id number] [place] [address] Jan, [facility] [place] [facility] [address] [id number] [place] [address] 20 Jan, 2012 [facility] [place] [facility] [address] [id number] [place] [address] 18 Jan, 2012 [facility] [place] [facility] [address] [id number] [place] [address] 10 Jan, 2012 [facility] [place] [facility] [address] [id number] [place] [address] 09 Jan, 2012 [facility] [place] [facility] [address] [id number] [place] [address] 06 Jan, 2012 [facility] [place] [facility] [address] [id number] [place] [address] 06 Jan, 2012 [facility] [place] [facility] [address] [id number] [place] [address] 05 Jan, 2012 [facility] [place] [facility] [address] [id number] [place] [address] 05 Jan, 2012 [facility] [place] [facility] [address] [id number] [place] [address] Dec, [facility] [place] [facility] [address] [id number] [place] [address] Nov, [facility] [place] [facility] [address] [id number] [place] [address] Nov, [facility] [place] [facility] [address] [id number] [place] [address] Nov, [facility] [place] [facility] [address] [id number] [place] [address] Nov, [facility] [place] [facility] [address] [id number] [place] [address] Nov, [facility] [place] [facility] [address] [id number] [place] [address] Oct, [facility] [place] [facility] [address] [id number] [place] [address] 17 Oct, 2012 [facility] [address] [id number] [place] [address] 07 Oct, 2012 [facility] [place] [facility] [address] [id number] [place] [address] 05 Oct, 2012 [facility] [address] [id number] [place] [address] Oct, [facility] [place] [facility] [address] [id number] [place] [address] September, [facility] [address] [id number] [place] [address] September, [facility] [address] [id number] [place] [address] 30 Aug, 2012 [facility] [address] [id number] [place] [address] Aug, [facility] [place] [facility] [address] [id number] [place] [address] Aug, [facility] [address] [id number] [place] [address] 28 Jul, 2012 [facility] [place] [facility] [address] [id number] [place] [address] Jul, [facility] [place] [facility] [address] [id number] [place] [address] Jul, [facility] [place] [facility] [address] [id number] [place] [address] Jul, [facility] [place] [facility] [address] [id number] [place] [address] Jul, [facility] [place] [facility] [address] [id number] [place] [address] Jul, [facility] [place] [facility] [address] [id number] [place] [address] Jul, [facility] [place] [facility] [address] [id number] [place] [address] 18 Jul, 2012 [facility] [address] [id number] [place] [address] 14 Jul, 2012 [facility] [address] [id number] [place] [address] 18 Jun, 2012 [facility] [address] [id number] [place] [address] 08 Jun, 2012 [facility] [address] [id number] [place] [address] 06 Jun, 2012 [facility] [address] [id number] [place] [address] 31 May, 2012 [facility] [address] [id number] [place] [address] 30 May, 2012 [facility] [address] [id number] [place] [address] 29 May, 2012 [facility] [address] [id number] [place] [address] 28 May, 2012 [facility] [address] [id number] [place] [address] 31 Apr, 2012 [facility] [address] [id number] [place] [address] 31 Apr, 2012 [facility] [address] [id number] [place] [address] 18 Apr, 2012 [facility] [address] [id number] [place] [address] 18 Apr, 2012 [facility] [place] [facility] [address] [id number] [place] [address] 17 Apr, 2012 [facility] [address] [id number] [place] [address] 17 Apr, 2012 [facility] [address] [id number] [place] [address] 14 Apr, 2012 [facility] [place] [facility] [address] [id number] [place] [address] 14 Apr, 2012 [facility] [place] [facility] [address] [id number] [place] [address] 14 Apr, 2012 [facility] [place] [facility] [address] [id number] [place] [address] 14 Apr, 2012 [facility] [place] [facility] [address] [id number] [place] [address] 10 Apr, 2012 [facility] [place] [facility] [address] [id number] [place] [address] 10 Apr, 2012 [facility] [place] [facility] [address] [id number] [place] [address] 10 Apr, 2012 [facility] [place] [facility] [address] [id number] [place] [address] 10 Apr, 2012 [facility] [place] [facility] [address] [id number] [place] [address] 07 Apr, 2012 [facility] [place] [facility] [address] [id number] [place] [address] 05 Apr, 2012 [facility] [place] [facility] [address] [id number] [place] [address] 05 Apr, 2012 [facility] [place] [facility] [address] [id number] [place] [address] 05 Apr, 2012 [facility] [place] [facility] [address] [id number] [place] [address] 05 Apr, 2012 [facility] [place] [facility] [address] [id number] [place] [address] Mar, [facility] [place] [facility] [address] [id number] [place] [address] Mar, [facility] [place] [facility] [address] [id number] [place] [address] 29 Mar, 2012 [facility] [place] [facility] [address] [id number] [place] [address] Mar, [facility] [place] [facility] [address] [id number] [place] [address] Mar, [facility] [place] [facility] [address] [id number] [place] [address] Mar, [facility] [place] [facility] [address] [id number] [place] [address] Mar, [facility] [place] [facility] [address] [id number] [place] [address] Mar, [facility] [place] [facility] [address] [id number] [place] [address] Mar, [facility] [place] [facility] [address] [id number] [place] [address] Mar, [facility] [place] [facility] [address] [id number] [place] [address] Mar, [facility] [place] [facility] [address] [id number] [place] [address] Mar, [facility] [place] [facility] [address] [id number] [place] [address] Mar, [facility] [place] [facility] [address] [facility] [id number] [place] [address] 31 Feb, 2012 [facility] [place] [facility] [address] [id number] [place] [address] 31 Feb, 2012 [facility] [place] [facility] [address] [id number], [place] [address] 30 Feb, 2012 [facility] [place] [facility] [address] [id number] [place] [address] 30 Feb, 2012 [facility] [place] [facility] [address] [facility] [id number] [place] [address] 15 Feb, 2012 [facility] [place] [facility] [address] [facility] [id number] [address] 15 Feb, 2012 [facility] [place] [facility] [address] [id number] [place] [address] Feb, [facility] [place] [facility] [address] [id number] [place] [address] Feb, [facility] [place] [facility] [address] [id number] [place] [address] Feb, [facility] [place] [facility] [address] [id number] [place] [address] Feb, [facility] [place] [facility] [address] [id number] [place] [address] Jan, [facility] [place] [facility] [address] [id number] [place] [address] Dec, [facility] [place] [facility] [address] [id number] [place] [address] Dec, [facility] [place] [facility] [address] [id number] [place] [address] Nov, [facility] [place] [facility] [address] [id number] [place] [address] Nov, [facility] [place] [facility] [address] [id number] [place] [address] Nov, [facility] [place] [facility] [address] [id number] [place] [address] Nov, [facility] [place] [facility] [address] [id number] [place] [address] Oct, [facility] [place] [facility] [address] [id number] [place] [address] Oct, [facility] [place] [facility] [address] [id number] [place] [address] Oct, [facility] [place] [facility] [address] [id number] [place] [address] Oct, [facility] [place] [facility] [address] [id number] [place] [address] September, [facility] [place] [facility] [address] [id number] [place] [address] September, [facility] [place] [facility] [address] [id number] [place] [address] Aug, [facility] [place] [facility] [address] [id number] [place] [address] Aug, [facility] [place] [facility] [address] [id number] [place] [address] Aug, [facility] [place] [facility] [address] [id number] [place] [address] Jul, [facility] [place] [facility] [address] [id number] [place] [address] Jul, [facility] [place] [facility] [address] [id number] [place] [address] Jun, [facility] [place] [facility] [address] [id number] [place] [address] Jun, [facility] [place] [facility] [address] [id number] [place] [address] Jun, [facility] [place] [facility] [address] [id number] [place] [address] Apr, [facility] [place] [facility] [address] [id number] [place] [address] Apr, [facility] [place] [facility] [address] [id number] [place] [address] Mar, [facility] [place] [facility] [address] [id number] [place] [address] Mar, [facility] [place] [facility] [address] [id number] [place] [address] Feb, [facility] [place] [facility] [address] [id number] [place] [address] Dec, [facility] [place] [facility] [address] [facility] [id number] [place] [address] Nov, IMMUNIZATIONS No Known Immunizations SOCIAL HISTORY Never Assessed REASON FOR VISIT [place] [place] VITAL SIGNS MEDICATIONS Unknown [...]
--- OUTSIDE RECORDS SUMMARY | 2018-11-21 02:10 | XMS REPORT ---
Author Author Migration, Doctor Organization [facility] Address Unknown Phone Unavailable Care Team Providers Care Singing Teacher Name Role Phone Migration, Doctor Unavailable Unavailable PROBLEMS Type Condition ICD9-CM Code [id number] Code Onset Dates Condition Status SNOMED Code Problem Nausea with vomiting 787.01 Active 66821918 Problem Diarrhea 787.91 Active 71992954 Problem Pain in joint, shoulder region 719.41 Active 156535136 Problem Pain in joint, lower leg 719.46 Active 367226317 Problem Unspecified local infection of skin and subcutaneous tissue 686.9 Active 955821101 Problem Unspecified disorder of skin and subcutaneous tissue 709.9 Active 60126461 Problem 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 595401332 Problem Unspecified episodic mood disorder 296.90 Active 379118088 Problem Vascular dementia, uncomplicated 290.40 Active 41377386 Problem Major depressive disorder, recurrent, unspecified F33.9 Active 71281947 Problem 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 [address] [facility] [id number] [address] Oct, [facility] [address] [id number] [address] Oct, [facility] [address] [facility] [id number], [place] [address] September, Unspecified mood [affective] disorder F39 and Vascular dementia with behavioral disturbance F01.51 [facility] [id number] [place] [address] Aug, Major depressive disorder, recurrent, unspecified F33.9 [facility] [id number] [place] [address] Aug, Major depressive disorder, recurrent, unspecified F33.9 and Vascular dementia with behavioral disturbance F01.51 [facility] [id number] [place] [address] Feb, Major depressive disorder, recurrent, unspecified F33.9 and Vascular dementia with behavioral disturbance F01.51 [facility] [id number] [place] [address] Dec, Major depressive disorder, recurrent, unspecified F33.9 [facility] [id number] [place] [address] Oct, Unspecified mood [affective] disorder F39 [facility] [id number] [place] [address] September, Major depressive disorder, recurrent, unspecified F33.9 [facility] [id number] [place] [id number] May, [facility] [id number] [place] [address] May, Major depressive disorder, recurrent, unspecified F33.9 [facility] [id number] [place] [address] Feb, Major depressive disorder, recurrent, unspecified F33.9 [facility] [id number] [place] [address] Jan, Major depressive disorder, recurrent, unspecified F33.9 [facility] [id number] [place] [address] Jan, Major depressive disorder, recurrent, unspecified F33.9 [facility] [address], [place] [address] Jan, Major depressive disorder, recurrent, unspecified F33.9 [facility] [id number] [place] [address] Dec, Major depressive disorder, recurrent, unspecified F33.9 [facility] [id number] [place] [address] Nov, Major depressive disorder, recurrent, unspecified F33.9 [facility] [id number] [place] [address] Nov, 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 [facility] [id number] [place] [address] Oct, Unspecified mood [affective] disorder F39 ; Major depressive disorder, recurrent, unspecified F33.9 and Vascular dementia with behavioral disturbance F01.51 [facility] [id number] [place] [address] May, 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 [facility] [id number] [place] [address] Aug, [facility] [id number] [place] [address] Aug, [facility] [id number] [place] [address] Feb, [facility] [id number] [place] [address] Feb, [facility] [id number] [place] [address] Feb, [facility] [id number] [place] [address] Feb, [facility] [id number] [place] [address] Jan, [facility] [place] [facility] [address] [id number] [place] [address] 20 Jan, 2012 [facility] [place] [facility] [address] [id number] [place] [address] 18 Jan, 2012 [facility] [place] [facility] [address] [id number] [place] [address] 10 Jan, 2012 [facility] [place] [facility] [address] [id number] [place] [address] 09 Jan, 2012 [facility] [place] [facility] [address] [id number] [place] [address] 06 Jan, 2012 [facility] [place] [facility] [address] [id number] [place] [address] 06 Jan, 2012 [facility] [place] [facility] [address] [id number] [place] [address] 05 Jan, 2012 [facility] [place] [facility] [address] [id number] [place] [address] 05 Jan, 2012 [facility] [place] [facility] [address] [id number] [place] [address] Dec, [facility] [place] [facility] [address] [id number] [place] [address] Nov, [facility] [place] [facility] [address] [id number] [place] [address] Nov, [facility] [place] [facility] [address] [id number] [place] [address] Nov, [facility] [place] [facility] [address] [id number] [place] [address] Nov, [facility] [place] [facility] [address] [id number] [place] [address] Nov, [facility] [place] [facility] [address] [id number] [place] [address] Oct, [facility] [place] [facility] [address] [id number] [place] [address] 17 Oct, 2012 [facility] [address] [id number] [place] [address] 07 Oct, 2012 [facility] [place] [facility] [address] [id number] [place] [address] 05 Oct, 2012 [facility] [address] [id number] [place] [address] Oct, [facility] [place] [facility] [address] [id number] [place] [address] September, [facility] [address] [id number] [place] [address] September, [facility] [address] [id number] [place] [address] 30 Aug, 2012 [facility] [address] [id number] [place] [address] Aug, [facility] [place] [facility] [address] [id number] [place] [address] Aug, [facility] [address] [id number] [place] [address] 28 Jul, 2012 [facility] [place] [facility] [address] [id number] [place] [address] Jul, [facility] [place] [facility] [address] [id number] [place] [address] Jul, [facility] [place] [facility] [address] [id number] [place] [address] Jul, [facility] [place] [facility] [address] [id number] [place] [address] Jul, [facility] [place] [facility] [address] [id number] [place] [address] Jul, [facility] [place] [facility] [address] [id number] [place] [address] Jul, [facility] [place] [facility] [address] [id number] [place] [address] 18 Jul, 2012 [facility] [address] [id number] [place] [address] 14 Jul, 2012 [facility] [address] [id number] [place] [address] 18 Jun, 2012 [facility] [address] [id number] [place] [address] 08 Jun, 2012 [facility] [address] [id number] [place] [address] 06 Jun, 2012 [facility] [address] [id number] [place] [address] 31 May, 2012 [facility] [address] [id number] [place] [address] 30 May, 2012 [facility] [address] [id number] [place] [address] 29 May, 2012 [facility] [address] [id number] [place] [address] 28 May, 2012 [facility] [address] [id number] [place] [address] 31 Apr, 2012 [facility] [address] [id number] [place] [address] 31 Apr, 2012 [facility] [address] [id number] [place] [address] 18 Apr, 2012 [facility] [address] [id number] [place] [address] 18 Apr, 2012 [facility] [place] [facility] [address] [id number] [place] [address] 17 Apr, 2012 [facility] [address] [id number] [place] [address] 17 Apr, 2012 [facility] [address] [id number] [place] [address] 14 Apr, 2012 [facility] [place] [facility] [address] [id number] [place] [address] 14 Apr, 2012 [facility] [place] [facility] [address] [id number] [place] [address] 14 Apr, 2012 [facility] [place] [facility] [address] [id number] [place] [address] 14 Apr, 2012 [facility] [place] [facility] [address] [id number] [place] [address] 10 Apr, 2012 [facility] [place] [facility] [address] [id number] [place] [address] 10 Apr, 2012 [facility] [place] [facility] [address] [id number] [place] [address] 10 Apr, 2012 [facility] [place] [facility] [address] [id number] [place] [address] 10 Apr, 2012 [facility] [place] [facility] [address] [id number] [place] [address] 07 Apr, 2012 [facility] [place] [facility] [address] [id number] [place] [address] 05 Apr, 2012 [facility] [place] [facility] [address] [id number] [place] [address] 05 Apr, 2012 [facility] [place] [facility] [address] [id number] [place] [address] 05 Apr, 2012 [facility] [place] [facility] [address] [id number] [place] [address] 05 Apr, 2012 [facility] [place] [facility] [address] [id number] [place] [address] Mar, [facility] [place] [facility] [address] [id number] [place] [address] Mar, [facility] [place] [facility] [address] [id number] [place] [address] 29 Mar, 2012 [facility] [place] [facility] [address] [id number] [place] [address] Mar, [facility] [place] [facility] [address] [id number] [place] [address] Mar, [facility] [place] [facility] [address] [id number] [place] [address] Mar, [facility] [place] [facility] [address] [id number] [place] [address] Mar, [facility] [place] [facility] [address] [id number] [place] [address] Mar, [facility] [place] [facility] [address] [id number] [place] [address] Mar, [facility] [place] [facility] [address] [id number] [place] [address] Mar, [facility] [place] [facility] [address] [id number] [place] [address] Mar, [facility] [place] [facility] [address] [id number] [place] [address] Mar, [facility] [place] [facility] [address] [id number] [place] [address] Mar, [facility] [place] [facility] [address] [facility] [id number] [place] [address] 31 Feb, 2012 [facility] [place] [facility] [address] [id number] [place] [address] 31 Feb, 2012 [facility] [place] [facility] [address] [id number], [place] [address] 30 Feb, 2012 [facility] [place] [facility] [address] [id number] [place] [address] 30 Feb, 2012 [facility] [place] [facility] [address] [facility] [id number] [place] [address] 15 Feb, 2012 [facility] [place] [facility] [address] [facility] [id number], [place] [address] 15 Feb, 2012 [facility] [place] [facility] [address] [id number] [place] [address] Feb, [facility] [place] [facility] [address] [id number] [place] [address] Feb, [facility] [place] [facility] [address] [id number] [place] [address] Feb, [facility] [place] [facility] [address] [id number] [place] [address] Feb, [facility] [place] [facility] [address] [id number] [place] [address] Jan, [facility] [place] [facility] [address] [id number] [place] [address] Dec, [facility] [place] [facility] [address] [id number] [place] [address] Dec, [facility] [place] [facility] [address] [id number] [place] [address] Nov, [facility] [place] [facility] [address] [id number] [place] [address] Nov, [facility] [place] [facility] [address] [id number] [place] [address] Nov, [facility] [place] [facility] [address] [id number] [place] [address] Nov, [facility] [place] [facility] [address] [id number] [place] [address] Oct, [facility] [place] [facility] [address] [id number] [place] [address] Oct, [facility] [place] [facility] [address] [id number] [place] [address] Oct, [facility] [place] [facility] [address] [id number] [place] [address] Oct, [facility] [place] [facility] [address] [id number] [place] [address] September, [facility] [place] [facility] [address] [id number] [place] [address] September, [facility] [place] [facility] [address] [id number] [place] [address] Aug, [facility] [place] [facility] [address] [id number] [place] [address] Aug, [facility] [place] [facility] [address] [id number] [place] [address] Aug, [facility] [place] [facility] [address] [id number] [place] [address] Jul, [facility] [place] [facility] [address] [id number] [place] [address] Jul, [facility] [place] [facility] [address] [id number] [place] [address] Jun, [facility] [place] [facility] [address] [id number] [place] [address] Jun, [facility] [place] [facility] [address] [id number] [place] [address] Jun, [facility] [place] [facility] [address] [id number] [place] [address] Apr, [facility] [place] [facility] [address] [id number] [place] [address] Apr, [facility] [place] [facility] [address] [id number] [place] [address] Mar, [facility] [place] [facility] [address] [id number] [place] [address] Mar, [facility] [place] [facility] [address] [id number] [place] [address] Feb, [facility] [place] [facility] [address] [id number] [place] [address] Dec, [facility] [place] [facility] [address] [facility] [id number] [place] [address] 19 Nov, 2010 IMMUNIZATIONS No Known Immunizations SOCIAL HISTORY Never Assessed REASON FOR VISIT EMR-[facility] [place]AN OF CARE VITAL SIGNS MEDICATIONS Unknown Medications RESULTS No Results PROCEDURES Procedure Date Ordered Result Body Site HEPATIC FUNCTION PANEL Apr 12, 2012 BASIC METABOLIC PANEL Apr 12, 2012 INSTRUCTIONS MEDICATIONS ADMINISTERED No Known Medications MEDICAL [...]
--- OUTSIDE RECORDS SUMMARY | 2018-11-21 02:10 | XMS REPORT ---
Author Author Migration, Doctor Organization [facility] Address Unknown Phone Unavailable Care Team Providers Care Minister Name Role Phone Migration, Doctor Unavailable Unavailable PROBLEMS Type Condition ICD9-CM Code UCH88-MQ Code Onset Dates Condition Status SNOMED Code Problem Nausea with vomiting 787.01 Active 86357013 Problem Diarrhea 787.91 Active 23820549 Problem Pain in joint, shoulder region 719.41 Active 890535662 Problem Pain in joint, lower leg 719.46 Active 859646896 Problem Unspecified local infection of skin and subcutaneous tissue 686.9 Active 790993673 Problem Unspecified disorder of skin and subcutaneous tissue 709.9 Active 73512760 Problem 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 931677232 Problem Unspecified episodic mood disorder 296.90 Active 401143255 Problem Vascular dementia, uncomplicated 290.40 Active 22814720 Problem Major depressive disorder, recurrent, unspecified F33.9 Active 12254552 Problem 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 Active 523965031 Problem Vascular dementia with behavioral disturbance F01.51 Active [id number] Problem Unspecified hypotension 458.9 Active 39218891 Problem Other and unspecified hyperlipidemia 272.4 Active 95173442 Problem Diabetes mellitus without mention of complication, type II or unspecified type, not stated as uncontrolled 250.00 Active 876840633 Problem 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 [id number] [address] Oct, [facility] [address] [id number] [address] Oct, [facility] [address] [facility] [id number], [place] [address] September, Unspecified mood [affective] disorder F39 and Vascular dementia with behavioral disturbance F01.51 [facility] [id number] [place] [address] Aug, Major depressive disorder, recurrent, unspecified F33.9 [facility] [id number] [place] [address] Aug, Major depressive disorder, recurrent, unspecified F33.9 and Vascular dementia with behavioral disturbance F01.51 [facility] [id number] [place] [address] Feb, Major depressive disorder, recurrent, unspecified F33.9 and Vascular dementia with behavioral disturbance F01.51 [facility] [id number] [place] [address] Dec, Major depressive disorder, recurrent, unspecified F33.9 [facility] [id number] [place] [address] Oct, Unspecified mood [affective] disorder F39 [facility] [id number] [place] [address] September, Major depressive disorder, recurrent, unspecified F33.9 [facility] [id number] [place] [id number] May, [facility] [id number] [place] [address] May, Major depressive disorder, recurrent, unspecified F33.9 [facility] [id number] [place] [address] Feb, Major depressive disorder, recurrent, unspecified F33.9 [facility] [id number] [place] [address] Jan, Major depressive disorder, recurrent, unspecified F33.9 [facility] [address] [place] [address] Jan, Major depressive disorder, recurrent, unspecified F33.9 [facility] [address] [address] Jan, Major depressive disorder, recurrent, unspecified F33.9 [facility] [id number] [place] [address] Dec, Major depressive disorder, recurrent, unspecified F33.9 [facility] [id number] [place] [address] Nov, Major depressive disorder, recurrent, unspecified F33.9 [facility] [address] [place] [address] Nov, 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 [facility] [id number] [place] [address] Oct, Unspecified mood [affective] disorder F39 ; Major depressive disorder, recurrent, unspecified F33.9 and Vascular dementia with behavioral disturbance F01.51 [facility] [id number] [place] [address] May, 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 [facility] [id number] [place] [address] Aug, [facility] [address] [place] [address] Aug, [facility] [address] [place] [address] Feb, [facility] [id number] [place] [address] Feb, [facility] [id number] [place] [address] Feb, [facility] [address] [place] [address] Feb, [facility] [address] [place] [address] Jan, [facility] [place] [facility] [address] [id number] [place] [address] 20 Jan, 2012 [facility] [place] [facility] [address] [id number] [place] [address] 18 Jan, 2012 [facility] [place] [facility] [address] [id number] [place] [address] 10 Jan, 2012 [facility] [place] [facility] [address] [id number] [place] [address] 09 Jan, 2012 [facility] [place] [facility] [address] [id number] [place] [address] 06 Jan, 2012 [facility] [place] [facility] [address] [id number] [place] [address] 06 Jan, 2012 [facility] [place] [facility] [address] [id number] [place] [address] 05 Jan, 2012 [facility] [place] [facility] [address] [id number] [place] [address] 05 Jan, 2012 [facility] [place] [facility] [address] [id number] [place] [address] Dec, [facility] [place] [facility] [address] [id number] [place] [address] Nov, [facility] [place] [facility] [address] [id number] [place] [address] Nov, [facility] [place] [facility] [address] [id number] [place] [address] Nov, [facility] [place] [facility] [address] [id number] [place] [address] Nov, [facility] [place] [facility] [address] [id number] [place] [address] Nov, [facility] [place] [facility] [address] [id number] [place] [address] Oct, [facility] [place] [facility] [address] [id number] [place] [address] 17 Oct, 2012 [facility] [address] [id number] [place] [address] 07 Oct, 2012 [facility] [place] [facility] [address] [id number] [place] [address] 05 Oct, 2012 [facility] [address] [id number] [place] [address] Oct, [facility] [place] [facility] [address] [id number] [place] [address] September, [facility] [address] [id number] [place] [address] September, [facility] [address] [id number] [place] [address] 30 Aug, 2012 [facility] [address] [id number] [place] [address] Aug, [facility] [place] [facility] [address] [id number] [place] [address] Aug, [facility] [address] [id number] [place] [address] 28 Jul, 2012 [facility] [place] [facility] [address] [id number] [place] [address] Jul, [facility] [place] [facility] [address] [id number] [place] [address] Jul, [facility] [place] [facility] [address] [id number] [place] [address] Jul, [facility] [place] [facility] [address] [id number] [place] [address] Jul, [facility] [place] [facility] [address] [id number] [place] [address] Jul, [facility] [place] [facility] [address] [id number] [place] [address] Jul, [facility] [place] [facility] [address] [id number] [place] [address] 18 Jul, 2012 [facility] [address] [id number] [place] [address] 14 Jul, 2012 [facility] [address] [id number] [place] [address] 18 Jun, 2012 [facility] [address] [id number] [place] [address] 08 Jun, 2012 [facility] [address] [id number] [place] [address] 06 Jun, 2012 [facility] [address] [id number] [place] [address] 31 May, 2012 [facility] [address] [id number] [place] [address] 30 May, 2012 [facility] [address] [id number] [place] [address] 29 May, 2012 [facility] [address] [id number] [place] [address] 28 May, 2012 [facility] [address] [id number] [place] [address] 31 Apr, 2012 [facility] [address] [id number] [place] [address] 31 Apr, 2012 [facility] [address] [id number] [place] [address] 18 Apr, 2012 [facility] [address] [id number] [place] [address] 18 Apr, 2012 [facility] [place] [facility] [address] [id number] [place] [address] 17 Apr, 2012 [facility] [address] [id number] [place] [address] 17 Apr, 2012 [facility] [address] [id number] [place] [address] 14 Apr, 2012 [facility] [place] [facility] [address] [id number] [place] [address] 14 Apr, 2012 [facility] [place] [facility] [address] [id number] [place] [address] 14 Apr, 2012 [facility] [place] [facility] [address] [id number] [place] [address] 14 Apr, 2012 [facility] [place] [facility] [address] [id number] [place] [address] 10 Apr, 2012 [facility] [place] [facility] [address] [id number] [place] [address] 10 Apr, 2012 [facility] [place] [facility] [address] [id number] [place] [address] 10 Apr, 2012 [facility] [place] [facility] [address] [id number] [place] [address] 10 Apr, 2012 [facility] [place] [facility] [address] [id number] [place] [address] 07 Apr, 2012 [facility] [place] [facility] [address] [id number] [place] [address] 05 Apr, 2012 [facility] [place] [facility] [address] [id number] [place] [address] 05 Apr, 2012 [facility] [place] [facility] [address] [id number] [place] [address] 05 Apr, 2012 [facility] [place] [facility] [address] [id number] [place] [address] 05 Apr, 2012 [facility] [place] [facility] [address] [id number] [place] [address] Mar, [facility] [place] [facility] [address] [id number] [place] [address] Mar, [facility] [place] [facility] [address] [id number] [place] [address] 29 Mar, 2012 [facility] [place] [facility] [address] [id number] [place] [address] Mar, [facility] [place] [facility] [address] [id number] [place] [address] Mar, [facility] [place] [facility] [address] [id number] [place] [address] Mar, [facility] [place] [facility] [address] [id number] [place] [address] Mar, [facility] [place] [facility] [address] [id number] [place] [address] Mar, [facility] [place] [facility] [address] [id number] [place] [address] Mar, [facility] [place] [facility] [address] [id number] [place] [address] Mar, [facility] [place] [facility] [address] [id number] [place] [address] Mar, [facility] [place] [facility] [address] [id number] [place] [address] Mar, [facility] [place] [facility] [address] [id number] [place] [address] Mar, [facility] [place] [facility] [address] [facility] [id number] [place] [address] 31 Feb, 2012 [facility] [place] [facility] [address] [id number] [place] [address] 31 Feb, 2012 [facility] [place] [facility] [address] [id number], [place] [address] 30 Feb, 2012 [facility] [place] [facility] [address] [id number] [place] [address] 30 Feb, 2012 [facility] [place] [facility] [address] [facility] [id number] [place] [address] 15 Feb, 2012 [facility] [place] [facility] [address] [facility] [id number], [place] [address] 15 Feb, 2012 [facility] [place] [facility] [address] [id number] [place] [address] Feb, [facility] [place] [facility] [address] [id number] [place] [address] Feb, [facility] [place] [facility] [address] [id number] [place] [address] Feb, [facility] [place] [facility] [address] [id number] [place] [address] Feb, [facility] [place] [facility] [address] [id number] [place] [address] Jan, [facility] [place] [facility] [address] [id number] [place] [address] Dec, [facility] [place] [facility] [address] [id number] [place] [address] Dec, [facility] [place] [facility] [address] [id number] [place] [address] Nov, [facility] [place] [facility] [address] [id number] [place] [address] Nov, [facility] [place] [facility] [address] [id number] [place] [address] Nov, [facility] [place] [facility] [address] [id number] [place] [address] Nov, [facility] [place] [facility] [address] [id number] [place] [address] Oct, [facility] [place] [facility] [address] [id number] [place] [address] Oct, [facility] [place] [facility] [address] [id number] [place] [address] Oct, [facility] [place] [facility] [address] [id number] [place] [address] Oct, [facility] [place] [facility] [address] [id number] [place] [address] September, [facility] [place] [facility] [address] [id number] [place] [address] September, [facility] [place] [facility] [address] [id number] [place] [address] Aug, [facility] [place] [facility] [address] [id number] [place] [address] Aug, [facility] [place] [facility] [address] [id number] [place] [address] Aug, [facility] [place] [facility] [address] [id number] [place] [address] Jul, [facility] [place] [facility] [address] [id number] [place] [address] Jul, [facility] [place] [facility] [address] [id number] [place] [address] Jun, [facility] [place] [facility] [address] [id number] [place] [address] Jun, [facility] [place] [facility] [address] [id number] [place] [address] Jun, [facility] [place] [facility] [address] [id number] [place] [address] Apr, [facility] [place] [facility] [address] [id number] [place] [address] Apr, [facility] [place] [facility] [address] [id number] [place] [address] Mar, [facility] [place] [facility] [address] [id number] [place] [address] Mar, [facility] [place] [facility] [address] [id number] [place] [address] Feb, [facility] [place] [facility] [address] [id number] [place] [address] Dec, [facility] [place] [facility] [address] [facility] [id number] [place] [address] Nov, IMMUNIZATIONS No Known Immunizations SOCIAL HISTORY Never Assessed REAS[place] [place] VITAL SIGNS MEDICATIONS Unknown [...]
--- OUTSIDE RECORDS SUMMARY | 2018-11-21 02:11 | XMS REPORT ---
Author Author Migration, Doctor Organization [facility] Address Unknown Phone Unavailable Care Team Providers Care Statement Distribution Clerk Name Role Phone Migration, Doctor Unavailable Unavailable PROBLEMS Type Condition ICD9-CM Code HMA16-LD Code Onset Dates Condition Status SNOMED Code Problem Nausea with vomiting 787.01 Active 08797138 Problem Diarrhea 787.91 Active 07722743 Problem Pain in joint, shoulder region 719.41 Active 746257653 Problem Pain in joint, lower leg 719.46 Active 059746396 Problem Unspecified local infection of skin and subcutaneous tissue 686.9 Active 787428374 Problem Unspecified disorder of skin and subcutaneous tissue 709.9 Active 86523819 Problem 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 438610912 Problem Unspecified episodic mood disorder 296.90 Active 219287411 Problem Vascular dementia, uncomplicated 290.40 Active 81142971 Problem Major depressive disorder, recurrent, unspecified F33.9 Active 49367314 Problem 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 Active 361524810 Problem Vascular dementia with behavioral disturbance F01.51 Active 308562826119696 Problem Unspecified hypotension 458.9 Active 43131830 Problem Other and unspecified hyperlipidemia 272.4 Active 37381948 Problem Diabetes mellitus without mention of complication, type II or unspecified type, not stated as uncontrolled 250.00 Active 430108967 Problem 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 [id number] [place] [address] Oct, [facility] [address] [facility] [id number] [place] [address] September, [facility] [address] [facility] [id number] [place] [address] Aug, Major depressive disorder, recurrent, unspecified F33.9 [facility] [address] [place] [address] Aug, Major depressive disorder, recurrent, unspecified F33.9 and Vascular dementia with behavioral disturbance F01.51 [facility] [address] [place] [address] Feb, Major depressive disorder, recurrent, unspecified F33.9 and Vascular dementia with behavioral disturbance F01.51 [facility] [id number] [place] [address] Dec, Major depressive disorder, recurrent, unspecified F33.9 [facility] [id number] [place] [address] Oct, Unspecified mood [affective] disorder F39 [facility] [id number] [place] [address] September, Major depressive disorder, recurrent, unspecified F33.9 [facility] [id number] [place] [id number] May, [facility] [id number] [place] [address] May, Major depressive disorder, recurrent, unspecified F33.9 [facility] [address] [place] [address] Feb, Major depressive disorder, recurrent, unspecified F33.9 [facility] [address] [place] [address] Jan, Major depressive disorder, recurrent, unspecified F33.9 [facility] [address] [place] [address] Jan, Major depressive disorder, recurrent, unspecified F33.9 [facility] [address] [place] [address] Jan, Major depressive disorder, recurrent, unspecified F33.9 [facility] [id number] [place] [address] Dec, Major depressive disorder, recurrent, unspecified F33.9 [facility] [id number] [place] [address] Nov, Major depressive disorder, recurrent, unspecified F33.9 [facility] [id number] [place] [address] Nov, 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 [facility] [id number] [place] [address] Oct, Unspecified mood [affective] disorder F39 ; Major depressive disorder, recurrent, unspecified F33.9 and Vascular dementia with behavioral disturbance F01.51 [facility] [id number] [place] [address] May, 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 [facility] [id number] [place] [address] Aug, [facility] [id number] [place] [address] Aug, [facility] [id number] [place] [address] Feb, [facility] [id number] [place] [address] Feb, [facility] [id number] [place] [address] Feb, [facility] [id number] [place] [address] Feb, [facility] [id number] [place] [address] Jan, [facility] [id number] [place] [address] Jan, [facility] [id number] [place] [address] 18 Jan, 2012 [facility] [place] [facility] [address] [id number] [place] [address] 10 Jan, 2012 [facility] [place] [facility] [address] [id number] [place] [address] 09 Jan, 2012 [facility] [place] [facility] [address] [id number] [place] [address] 06 Sep, 2012 [facility] [place] [facility] [address] [id number] [place] [address] 06 Sep, 2012 [facility] [place] [facility] [address] [id number] [place] [address] 05 Jan, 2012 [facility] [place] [facility] [address] [id number] [place] [address] 05 Jan, 2012 [facility] [place] [facility] [address] [id number] [place] [address] Dec, [facility] [place] [facility] [address] [id number] [place] [address] Nov, [facility] [place] [facility] [address] [id number] [place] [address] Nov, [facility] [place] [facility] [address] [id number] [place] [address] Nov, [facility] [place] [facility] [address] [id number] [place] [address] Nov, [facility] [place] [facility] [address] [id number] [place] [address] Nov, [facility] [place] [facility] [address] [id number] [place] [address] Oct, [facility] [place] [facility] [address] [id number] [place] [address] Oct, [facility] [place] [facility] [address] [id number] [place] [address] Oct, [facility] [place] [facility] [address] [id number] [place] [address] 05 Oct, 2012 [facility] [address] [id number] [place] [address] Oct, [facility] [address] [id number] [place] [address] September, [facility] [address] [id number] [place] [address] September, [facility] [address] [id number] [place] [address] 30 Aug, 2012 [facility] [address] [id number] [place] [address] 15 Aug, 2012 [facility] [address] [id number] [place] [address] Aug, [facility] [address] [id number] [place] [address] 28 Jul, 2012 [facility] [address] [id number] [place] [address] 25 Jul, 2012 [facility] [address] [id number] [place] [address] 22 Jul, 2012 [facility] [address] [id number] [place] [address] 21 Jul, 2012 [facility] [address] [id number] [place] [address] 20 Jul, 2012 [facility] [address] [id number] [place] [address] 19 Jul, 2012 [facility] [address] [id number] [place] [address] 19 Jul, 2012 [facility] [address] [id number] [place] [address] 18 Jul, 2012 [facility] [address] [id number] [place] [address] 14 Jul, 2012 [facility] [address] [id number] [place] [address] 18 Jun, 2012 [facility] [place] [facility] [address] [id number] [place] [address] 08 Jun, 2012 [facility] [address] [id number] [place] [address] 06 Jun, 2012 [facility] [address] [id number] [place] [address] 31 May, 2012 [facility] [address] [id number] [place] [address] 30 May, 2012 [facility] [address] [id number] [place] [address] 29 May, 2012 [facility] [address] [id number] [place] [address] May, [facility] [address] [id number] [place] [address] 31 Apr, 2012 [facility] [address] [id number] [place] [address] 31 Apr, 2012 [facility] [address] [id number] [place] [address] 18 Apr, 2012 [facility] [address] [id number] [place] [address] 18 Apr, 2012 [facility] [place] [facility] [address] [id number] [place] [address] 17 Apr, 2012 [facility] [place] [facility] [address] [id number] [place] [address] 17 Apr, 2012 [facility] [place] [facility] [address] [id number] [place] [address] 14 Apr, 2012 [facility] [place] [facility] [address] [id number] [place] [address] 14 Apr, 2012 [facility] [place] [facility] [address] [id number] [place] [address] 14 Apr, 2012 [facility] [place] [facility] [address] [id number] [place] [address] 14 Apr, 2012 [facility] [place] [facility] [address] [id number] [place] [address] 10 Apr, 2012 [facility] [place] [facility] [address] [id number] [place] [address] 10 Apr, 2012 [facility] [place] [facility] [address] [id number] [place] [address] 10 Apr, 2012 [facility] [place] [facility] [address] [id number] [place] [address] 10 Apr, 2012 [facility] [place] [facility] [address] [id number] [place] [address] 07 Apr, 2012 [facility] [place] [facility] [address] [id number] [place] [address] 05 Apr, 2012 [facility] [place] [facility] [address] [id number] [place] [address] 05 Apr, 2012 [facility] [place] [facility] [address] [id number] [place] [address] 05 Apr, 2012 [facility] [place] [facility] [address] [id number] [place] [address] 05 Apr, 2012 [facility] [place] [facility] [address] [id number] [place] [address] 30 Mar, 2012 [facility] [place] [facility] [address] [id number] [place] [address] 30 Mar, 2012 [facility] [place] [facility] [address] [id number] [place] [address] 29 Mar, 2012 [facility] [place] [facility] [address] [id number] [place] [address] Mar, [facility] [place] [facility] [address] [id number] [place] [address] Mar, [facility] [place] [facility] [address] [id number] [place] [address] Mar, [facility] [place] [facility] [address] [id number] [place] [address] Mar, [facility] [place] [facility] [address] [id number] [place] [address] Mar, [facility] [place] [facility] [address] [id number] [place] [address] Mar, [facility] [place] [facility] [address] [id number] [place] [address] Mar, [facility] [place] [facility] [address] [id number] [place] [address] Mar, [facility] [place] [facility] [address] [id number] [place] [address] Mar, [facility] [place] [facility] [address] [id number] [place] [address] Mar, [facility] [place] [facility] [address] [id number] [place] [address] Feb, [facility] [place] [facility] [address] [id number] [place] [address] Feb, [facility] [place] [facility] [address] [id number] [place] [address] Feb, [facility] [place] [facility] [address] [id number] [place] [address] 30 Feb, 2012 [facility] [place] [facility] [address] [id number] [place] [address] 15 Feb, 2012 [facility] [place] [facility] [address] [id number] [place] [address] 15 Feb, 2012 [facility] [place] [facility] [address] [id number] [place] [address] 09 Feb, 2012 [facility] [place] [facility] [address] [id number] [place] [address] Feb, [facility] [place] [facility] [address] [id number] [place] [address] Feb, [facility] [place] [facility] [address] [id number] [place] [address] Feb, [facility] [place] [facility] [address] [id number] [place] [address] Jan, [facility] [place] [facility] [address] [id number] [place] [address] Dec, [facility] [place] [facility] [address] [id number] [place] [address] Dec, [facility] [place] [facility] [address] [id number] [place] [address] Nov, [facility] [place] [facility] [address] [id number] [place] [address] Nov, [facility] [place] [facility] [address] [id number] [place] [address] Nov, [facility] [place] [facility] [address] [id number] [place] [address] Nov, [facility] [place] [facility] [address] [id number] [place] [address] Oct, [facility] [place] [facility] [address] [id number] [place] [address] Oct, [facility] [place] [facility] [address] [id number] [place] [address] Oct, [facility] [place] [facility] [address] [id number] [place] [address] Oct, [facility] [place] [facility] [address] [id number] [place] [address] September, [facility] [place] [facility] [address] [id number] [place] [address] September, [facility] [place] [facility] [address] [address] Aug, [facility] [address] [address] Aug, [facility] [address] [address] Aug, [facility] [address] [place] [address] Jul, [facility] [address] [address] Jul, [facility] [address] [place] [address] Jun, [facility] [address] [address] Jun, [facility] [id number] [place] [address] Jun, [facility] [address] [address] Apr, [facility] [address] [address] Apr, [facility] [address] [address] Mar, [facility] [address] [address] Mar, [facility] [address] [address] Feb, [facility] [address] [address] Dec, [facility] [address] [address] Nov, IMMUNIZATIONS No Known Immunizations SOCIAL HISTORY Never Assessed REASON FOR [place]ISIT [place] [place] VITAL SIGNS MEDICATIONS Unknown [...]
[2018-11-21 02:28] LABS: BASOPHILS % (AUTO) 0 % (0-10); EOSINOPHILS # (AUTO) 0.2 10^3/uL (0.0-0.3); EOSINOPHILS % (AUTO) 2 % (0-10); HEMATOCRIT 37 % (40-54); HEMOGLOBIN 11.8 G/DL (13.3-17.7); LYMPHOCYTES # (AUTO) 3.4 X 10^3 (1.0-4.0); LYMPHOCYTES % (AUTO) 38 % (12-44); MEAN CORPUSCULAR HEMOGLOBIN 29 PG (25-34); MEAN CORPUSCULAR HGB CONC 32 G/DL (32-36); MEAN CORPUSCULAR VOLUME 91 FL (80-99); MEAN PLATELET VOLUME 10.6 FL (7.4-10.4); MONOCYTES # (AUTO) 1.2 X 10^3 (0.0-1.0); MONOCYTES % (AUTO) 13 % (0-12); NEUTROPHILS # (AUTO) 4.1 X 10^3 (1.8-7.8); NEUTROPHILS % (AUTO) 46 % (42-75); PLATELET COUNT 282 10^3/uL (130-400); RED CELL DISTRIBUTION WIDTH 14.7 % (10.0-14.5)
[2018-11-21] MEDS ORDERED: RT-ALBUTEROL SULF 2.5 MG/3 ML PRE-MIX VIAL INH STA (02:28)
[2018-11-21] MEDS ORDERED: RT-ALBUTEROL/IPRATROPIUM 3 ML (DUONEB) VIAL INH ONE ×2 (02:30)
[2018-11-21 02:36] LABS: INR 0.9 (0.8-1.4); PROTHROMBIN TIME PATIENT 12.8 SEC (12.2-14.7)
[2018-11-21 02:43] LABS: ALBUMIN 3.3 GM/DL (3.2-4.5); BILIRUBIN,TOTAL 0.2 MG/DL (0.1-1.0); CALCIUM 8.6 MG/DL (8.5-10.1); CREATININE SERUM 1.89 MG/DL (0.60-1.30); MAGNESIUM 2.3 MG/DL (1.8-2.4); POTASSIUM 4.9 MMOL/L (3.6-5.0); TOTAL PROTEIN 6.4 GM/DL (6.4-8.2)
[2018-11-21 03:06] LABS: FREE T4 (FREE THYROXINE) 0.83 NG/DL (0.70-1.48)
[2018-11-21] MEDS ORDERED: meTOproloL SUCCINATE 50 MG (TOPROL XL) TAB PO SCH (03:45)
[2018-11-21] MEDS ORDERED: methylPREDNISolone 40 MG/ML (Solu-MEDROL) VIAL IV ONE (03:45)
[2018-11-21] MEDS ORDERED: FUROSEMIDE 40 MG/4 ML INJ (LASIX) IVP ONE ×2 (04:00→13:00)
--- NOTE | 2018-11-21 04:11 | ED Chest Pain ---
General Chief Complaint: Cardiac/General Problems Stated Complaint: CP,SOB Nursing Triage Note: TO ED ROOM 5 VIA [facility] WITH C/O CP X1 WEEK FROM [facility]. STATES HAS TOLD STAFF ABOUT CP BUT WOULD NOT DO ANYTHING ABOUT IT. PER EMS WAS RELEASED A WEEK AGO APPROX FROM [facility] FOR KIDNEY FAILURE. GIVEN 324MG ASA EN ROUTE, NO NITRO GIVEN RATED PAIN 1/10 EN ROUTE. Nursing Sepsis Screen: No Definite Risk Source: patient Exam Limitations: no limitations History of Present Illness Date Seen by Provider: Nov 21, 2018 Time Seen by Provider: 02:05 Initial Comments This 73-year-old gentleman from [facility] presents to the emergency room via EMS with complaints of chest pain 1 week. He reportedly was discharge from [facility] about one week ago after being treated for kidney failure. According to EMS patient had episodes of tachycardia with heart rate as high as 200 while in route. Patient only complained of pain when his heart rate was elevated. Pain had dissipated by the time of his arrival. Aspirin was given in route. Patient does not complain of any shortness of air but he appears dyspneic with belly breathing on arrival. He is afebrile. His primary care provider is Dr. Pham. Allergies and Home Medications Allergies Coded Allergies: morphine (Verified Adverse Reaction, Intermediate, psychosis, 09/12/12) Home Medications Acetaminophen 325 Mg Tablet, 650 MG PO Q4H PRN for PAIN-MILD OR TEMPATURE, (Reported) Apixaban 5 Mg Tablet, 5 MG PO BID, (Reported) Aspirin 81 Mg Tablet., 81 MG PO DAILY, (Reported) Buspirone HCl 15 Mg Tablet, 15 MG PO BID, (Reported) Calcium Alginate 1 Gm Powder, TOP DAILY, (Reported) APPLY TO LEFT ANKLE; CLEANSE LEFT LATERAL ANKLE WOUND WITH NORAML SALINE (KEEP DRY) APPLY CALCIUM ALGINATE WITH SILVER TO WOUNDBED, COVER WOUND WITH GAUZE, SECURE DRESSING WITH ROLLER GAUZE, THEN SECURE DRESSING WITH MEDIPORE TAPE, CHANGE DRESSING DAILY. Cholecalciferol (Vitamin D3) 2,000 Unit Capsule, 2,000 UNIT PO DAILY, (Reported) Divalproex Sodium 125 Mg Tablet., 125 MG PO TID, (Reported) Doxycycline Hyclate 100 Mg Capsule, 100 MG PO BID WITH MEALS Prescribed by: DESI LAZARO on 09/19/18 0845 Gabapentin 300 Mg Capsule, 600 MG PO TID, (Reported) TAKES 2 (300MG) CAPSULES Insulin Aspart 100 Unit/1 Ml Susp, 10 UNIT SQ TIDAC, (Reported) Insulin Determir 1,000 Units/10 Ml Soln, 38 UNITS SQ BID, (Reported) Iodine/Potassium Iodide 100 Ml Solution, TP BID, (Reported) APPLY TO ALL OPEN AREAS BLE TOPICALLY TWICE DAILY; APPLY TO LEFT LEG ABEL AREA OPEN TILL RESOLVED Levothyroxine Sodium 200 Mcg Tablet, 200 MCG PO DAILY, (Reported) Loperamide HCl 2 Mg Tablet, PO UD PRN for DIARRHEA, (Reported) GIVE 2 TABS AFTER FIRST LOOSE STOOL THEN 1 TAB AFTER EACH OTHER LOOSE STOOL, MAX OF 4 PILLS PER DAY Loratadine 10 Mg Tablet, 10 MG PO DAILY, (Reported) Melatonin 3 Mg Tablet, 3 MG PO HS, (Reported) Metoprolol Tartrate 25 Mg Tablet, 25 MG PO BID, (Reported) HOLD FOR SBP<100 AND PULSE <50 Multivitamin with Minerals 1 Each Tablet, 1 TAB PO DAILY, (Reported) Povidone-Iodine 3,780 Ml Solution, TP DAILY, (Reported) APPLY TO POSTERIOR UPPER RIGHT LEG TOPICALLY DAILY FOR SPIDER BITE Ranitidine HCl 150 Mg Tablet, 150 MG PO DAILY, (Reported) Rivastigmine 9.5 Mg Patch, 9.5 MG TD DAILY, (Reported) Venlafaxine HCl 75 Mg Tab, 75 MG PO BID, (Reported) Patient Home Medication List Home Medication List Reviewed: Yes Review of Systems Review of Systems Constitutional: no symptoms reported EENTM: No Symptoms Reported Respiratory: See HPI Cardiovascular: See HPI Gastrointestinal: No Symptoms Reported Genitourinary: No Symptoms Reported Musculoskeletal: no symptoms reported Skin: no symptoms reported Psychiatric/Neurological: No Symptoms Reported Endocrine: No Symptoms Reported Hematologic/Lymphatic: No Symptoms Reported Past Dbclvwb-Prmaet-Mxrltz Hx Past Med/Social Hx: Reviewed Nursing Past Med/Soc Hx Patient Social History Alcohol Use: Past History Recreational Drug Use: No Type Used: Cigarettes, Pipe Former Smoker, Quit: Nov 01, 2012 2nd Hand Smoke Exposure: Yes Recent Foreign Travel: No Contact w/Someone Who Travel: No Recent Infectious Disease Expo: No Recent Hopitalizations: No Immunizations Up To Date Tetanus Booster (TDap): Unknown Date of Pneumonia Vaccine: Mar 15, 2012 Date of Influenza Vaccine: Feb 22, 2018 Past Medical History Surgeries: Yes Cardiac, CABG, Eye Surgery, Vascular Surgery Respiratory: Yes (PNEUMONIA WITH SEPSIS) Pneumonia, Sleep Apnea, COPD Currently Using CPAP: No Cardiac: Yes Atrial Fibrillation, Coronary Artery Disease, High Cholesterol, Hypertension, Peripheral Vascular Neurological: Yes Dementia, Neuropathy, Stroke (with left-sided paralysis), TIA, Vertigo Reproductive Disorders: No (unknown) Sexually Transmitted Disease: No (unknown) HIV/AIDS: No Genitourinary: Yes Kidney Infection, Bladder Infection, Kidney Stones, Renal Failure Gastrointestinal: Yes Gastroesophageal Reflux, Gastrointestinal Bleed, Hiatal Hernia, Ulcer Musculoskeletal: Yes (CHRONIC LEFT SHOULDER PAIN; IMPAIRED MOBILITY; FALLS) Arthritis Endocrine: Yes Diabetes, Insulin dep, Hypothyroidsim HEENT: Yes Cataract, Dysphagia Cancer: No Psychosocial: Yes Sleep Difficulties, Anxiety, Depression Integumentary: Yes (CELLULITIS LEFT FOOT; WOUND RIGHT POSTERIOR THIGH; LEFT ANKLE) Blood Disorders: No Adverse Reaction/Blood Tranf: No Family Medical History Reviewed Nursing Family Hx Cardiovascular disease 19 MOTHER Completed stroke 19 FATHER 19 MOTHER FH: emphysema Heart Disease, Diabetes Physical Exam Vital Signs Vital Signs - First Documented 11/21/18 02:05 Temp 97.4 Pulse 90 B/P (MAP) 147/85 (105) Pulse Ox 95 O2 Delivery Nasal Cannula O2 Flow Rate 4.00 Capillary Refill : Less Than 3 Seconds Height, Weight, BMI Height: 6'2.00" Weight: 293lbs. 5.0oz. 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 Norm as Tested Skin: Normal Color, Warm/Dry Progress/Results/Core Measures Results/Orders Lab Results Laboratory Tests Test 11/21/18 02:07 Range/Units White Blood Count 9.0 4.3-11.0 10^3/uL Red Blood Count 4.10 L 4.35-5.85 10^6/uL Hemoglobin 11.8 L 13.3-17.7 G/DL Hematocrit 37 L 40-54 % Mean Corpuscular Volume 91 80-99 FL Mean Corpuscular Hemoglobin 29 25-34 PG Mean Corpuscular Hemoglobin Concent 32 32-36 G/DL Red Cell Distribution Width 14.7 H 10.0-14.5 % Platelet Count 282 130-400 10^3/uL Mean Platelet Volume 10.6 H 7.4-10.4 FL Neutrophils (%) (Auto) 46 42-75 % Lymphocytes (%) (Auto) 38 12-44 % Monocytes (%) (Auto) 13 H 0-12 % Eosinophils (%) (Auto) 2 0-10 % Basophils (%) (Auto) 0 0-10 % Neutrophils # (Auto) 4.1 1.8-7.8 X 10^3 Lymphocytes # (Auto) 3.4 1.0-4.0 X 10^3 Monocytes # (Auto) 1.2 H 0.0-1.0 X 10^3 Eosinophils # (Auto) 0.2 0.0-0.3 10^3/uL Basophils # (Auto) 0.0 0.0-0.1 10^3/uL Prothrombin Time 12.8 12.2-14.7 SEC INR Comment 0.9 0.8-1.4 Activated Partial Thromboplast Time 31 24-35 SEC Sodium Level 139 135-145 MMOL/L Potassium Level 4.9 3.6-5.0 MMOL/L Chloride Level 103 98-107 MMOL/L Carbon Dioxide Level 21 21-32 MMOL/L Anion Gap 15 H 5-14 MMOL/L Blood Urea Nitrogen 26 H 7-18 MG/DL Creatinine 1.89 H 0.60-1.30 MG/DL Estimat Glomerular Filtration Rate 35 BUN/Creatinine Ratio 14 Glucose Level 274 H 70-105 MG/DL Calcium Level 8.6 8.5-10.1 MG/DL Corrected Calcium 9.2 8.5-10.1 MG/DL Magnesium Level 2.3 1.8-2.4 MG/DL Total Bilirubin 0.2 0.1-1.0 MG/DL Aspartate Amino Transf (AST/SGOT) 26 5-34 U/L Alanine Aminotransferase (ALT/SGPT) 31 0-55 U/L Alkaline Phosphatase 111 40-136 U/L Myoglobin 92.2 H 10.0-92.0 NG/ML Troponin I 0.305 *H <0.028 NG/ML C-Reactive Protein High Sensitivity 2.25 H 0.00-0.50 MG/DL B-Type Natriuretic Peptide 598.2 H <100.0 PG/ML Total Protein 6.4 6.4-8.2 GM/DL Albumin 3.3 3.2-4.5 GM/DL Thyroid Stimulating Hormone (TSH) 1.87 0.35-4.94 UIU/ML Free Thyroxine 0.83 0.70-1.48 NG/DL Valproic Acid (Depakene) Level 19.0 L 50.0-100.0 UG/ML My Orders Orders - JANNY KELLY MD Albuterol/Ipra Inhalation Soln (Duoneb I (11/21/18 02:30) Svn Small Volume Nebulizer (11/21/18 02:17) Cbc With Automated Diff (11/21/18 02:22) Magnesium (11/21/18 02:22) Chest 1 View, Ap/Pa Only (11/21/18 02:22) Ekg Tracing (11/21/18 02:22) Cardiac Profile 1 (11/21/18 02:22) Comprehensive Metabolic Panel (11/21/18 02:22) Myoglobin Serum (11/21/18 02:22) Protime With Inr (11/21/18:22) Partial Thromboplastin Time (11/21/18 02:22) O2 (11/21/18 02:22) Monitor-Rhythm Ecg Trace Only (11/21/18 02:22) Lipid Panel (11/22/18 06:00) Ed Iv/Invasive Line Start (11/21/18 02:22) BNP (11/21/18 02:22) Hs C Reactive Protein (11/21/18 02:22) Valproic Acid (11/21/18 02:24) Thyroid Stimulating Hormone (11/21/18 02:24) Free T4 (Free Thyroxine) (11/21/18 02:24) Albuterol Pre-Mix Nebs (Rt) (Proventil (11/21/18 02:28) Albuterol/Ipra Inhalation Soln (Duoneb I (11/21/18 02:30) Svn Small Volume Nebulizer (11/21/18 02:28) Svn Small Volume Nebulizer (11/21/18 02:28) Methylprednisolone Sod Succ (Solu-Medrol (11/21/18 03:45) Metoprolol Succinate (Xl) Tab (Toprol Xl (11/21/18 03:45) Furosemide Injection (Lasix Injection) (11/21/18 04:00) Medications Given in ED Current Medications Medications Dose Ordered Sig/Martita Route Start Time Stop Time Status Last Admin Dose Admin Albuterol/ Ipratropium 3 ml ONCE ONCE INH 11/21/18 02:30 11/21/18 02:31 DC 11/21/18 02:22 3 ML Albuterol/ Ipratropium 3 ml ONCE ONCE INH 11/21/18 02:30 11/21/18 02:31 DC 11/21/18 02:36 3 ML Methylprednisolone Sodium Succinate 40 mg ONCE ONCE IV 11/21/18 03:45 11/21/18 03:46 DC 11/21/18 04:03 40 MG Vital Signs/I&O 11/21/18 11/21/18 11/21/18 11/21/18 02:05 02:05 02:24 02:42 Temp 97.4 Pulse 90 B/P (MAP) 147/85 (105) Pulse Ox 95 95 96 97 O2 Delivery Nasal Cannula Nasal Cannula Nasal Cannula Nasal Cannula O2 Flow Rate 4.00 4.00 4.00 4.00 Blood Pressure Mean: 105 Progress Progress Note : Progress Note Patient was seen and examined. He was given a DuoNeb treatment for his wheezing and accessory muscle use. This did not significantly improve his breathing. He then received an hour-long treatment. Solu-Medrol was administered as well. Patient's troponin was mildly elevated. This was felt that constitute an STEMI. Patient was admitted to the cardiac step down unit. Chest x-ray showed some early congestion and edema and BNP was mildly elevated. Lasix 40 mg IV was given in the ER. Toprol-XL 100 mg was given in the ER per Dr. Palomo's recommendation. Patient denied having chest pain through his ER visit. Initial ECG Impression Date: Nov 21, 2018 Initial ECG Impression Time: 02:12 Initial ECG Rate: 84 Comment Sinus rhythm with no ST elevation, borderline ST depression. Left bundle branch block which is a change from prior EKG. Diagnostic Imaging Diagonstic Imaging: Xray Plain Films/CT/US/NM/MRI: chest Comments Chest x-ray viewed by me and compared with prior. Report not yet available. There is some suggestion of pulmonary edema and vascular congestion. No acute infiltrate. Left lower lung infiltrate seen on prior x-ray seems to have improved. Departure Communication (Admissions) Time/Spoke to Admitting Phy: 03:50 Dr. Kinney Time/Spoke to Consulting Phy: 03:40 Dr. Palomo Impression Primary Impression: NSTEMI (non-ST elevated myocardial infarction) Additional Impression: COPD exacerbation Disposition: ADMITTED INPATIENT Condition: Improved Admissions Decision to Admit Reason: Admit from ER (General) Decision to Admit/Date: Nov 21, 2018 Time/Decision to Admit Time: 02:25 Departure-Patient Inst. Referrals: LIU PHAM MD (PCP/Family) Primary Care Physician JANNY KELLY MD Nov 21, 2018 04:11
--- NOTE | 2018-11-21 04:35 | NUR ---
KRYSTEN FROM [facility] NOTIFIED OF PT ADMISSION TO ICU CSD OVERFLOW.
[2018-11-21] MEDS ORDERED: RT-ALBUTEROL SULF 2.5 MG/3 ML PRE-MIX VIAL IH PRN (05:45)
[2018-11-21] MEDS ORDERED: fentaNYL INJECTION 100 MCG/2 ML AMP IV PRN (05:45)
[2018-11-21] MEDS ORDERED: inSUlin ASPART (NovoLOG) 1 UNIT/0.01 ML (CHARGE PER UNIT) SC SCH ×2 (06:00→12:00)
[2018-11-21] MEDS ORDERED: inSUlin (REGULAR) HUMAN 1 UNIT/0.01 ML (CHARGE PER UNIT) ONE (06:17)
[2018-11-21] MEDS: RT-ALBUTEROL/IPRATROPIUM 3 ML (DUONEB) VIAL IH SCH ×5 (06:48→22:16)
--- NOTE | 2018-11-21 08:13 | Diagnostic Imaging Report ---
INDICATION: Shortness of air, cough and congestion. TECHNIQUE: Single view chest 2:47 AM. CORRELATION STUDY: 10/17/2018 FINDINGS: Poststernotomy changes. Cardiac enlargement with vascular increased from prior study. Pulmonary parenchymal densities in the right perihilar region as well as bilateral lung bases, overall adversely changed as well. Probable small effusions. IMPRESSION: 1. Features favor probable congestive heart failure. Superimposed areas of infiltrate and/or edema also in the perihilar and basilar regions right greater than left. Dictated by: Dictated on workstation # [id number]
[2018-11-21] MEDS: APIXABAN 5 MG (ELIQUIS) TABLET PO SCH ×2 (09:09→21:09)
[2018-11-21] MEDS: meTOprolol SUCCINATE 100 MG (TOPROL XL) TAB PO SCH (09:09)
[2018-11-21] MEDS ORDERED: CALC500T3 PO ×2 (10:44)
[2018-11-21] MEDS ORDERED: SODI50SP NS ×2 (10:44)
[2018-11-21] MEDS ORDERED: DIVA125C PO ×2 (10:44)
[2018-11-21] MEDS ORDERED: CHOL100045 PO ×2 (10:44)
[2018-11-21] MEDS ORDERED: OXYM30SP NS ×2 (10:44)
[2018-11-21] MEDS ORDERED: CALC-938 PO (10:44)
[2018-11-21] MEDS ORDERED: CARV6.25 PO ×2 (10:44)
[2018-11-21] MEDS ORDERED: LACT20SO2 PO ×2 (10:53)
--- NOTE | 2018-11-21 10:54 | NUR ---
MAR ON THE CHART WAS MISSING SOME PAGES SO I CALLED AND HAD ANOTHER COPY FAXED OVER FROM [facility] AND [facility]. I UPDATED THE MED REC WITH THAT MAR. I CALLED THEM TO VERIFY METOPROLOL WAS STOPPED WHEN COREG WAS STARTED. ALSO THEY VERIFIED LIPITOR IS NO LONGER ON HIS ACTIVE MED LIST. BOTH THESE WERE THINGS THAT HAD BEEN FILLED RECENTLY ACCORDING TO THE EXT MED HX.
--- NOTE | 2018-11-21 10:57 | History & Physical-Hospitalist ---
History of Present Illness HPI/Chief Complaint CC: Dyspnea HPI: This is a 73yo[place] [facility] patient of Dr Pham known to me from prior geripsych unit admits who presents to the ICU after complaints of chest pain, dyspnea and desaturation at detention. Patient was found to have volume overload with elevated troponin along with chronic renal failure further complicating diuresis. He suffered a catastrophic CVA 3 years ago and resides in a NH since that time. Patient currently is unable to tell me any significant details. He was just DC from [facility] for renal failure. Creatinine baseline 1.[address] Luciano consult Chronic issues including stroke with hemiparesis Home meds were restarted Overall very poor prognosis Updated Dr. Pham Source: patient Exam Limitations: clinical condition (dementia) Date Seen 11/21/18 Time Seen by a Provider: 10:00 Attending Physician Thanh Kinney MD PCP Charles Pham MD Referring Physician Date of Admission Nov 21, 2018 at 03:58 Home Medications & Allergies Home Medications Reviewed patient Home Medication Reconciliation performed by pharmacy medication reconciliations instrument technician helper and/or nursing. Patients Allergies have been reviewed. Allergies Allergies Coded Allergies morphine (Verified Adverse Reaction, Intermediate, psychosis, 09/12/12) Past Frbupam-Vaagjr-Orgool Hx Past Med/Social Hx: Reviewed Nursing Past Med/Soc Hx, Reviewed and Corrections made Patient Social History Marrital Status: Employed/Student: retired Alcohol Use: Past History Recreational Drug Use: No Smoking Status: Former Smoker Former Smoker, Quit: Nov 01, 2012 Type Used: Cigarettes, Pipe 2nd Hand Smoke Exposure: Yes Recent Foreign Travel: No Contact w/other who traveled: No Recent Hopitalizations: No Recent Infectious Disease Expo: No Immunizations Up To Date Tetanus Booster (TDap): Unknown Date of Pneumonia Vaccine: Mar 15, 2012 Date of Influenza Vaccine: Feb 22, 2018 Past Medical History Surgeries: Cardiac, CABG, Eye Surgery, Vascular Surgery Respiratory: COPD, Pneumonia Currently Using CPAP: No Cardiac: Atrial Fibrillation, Coronary Artery Disease, High Cholesterol, Hypertension, Peripheral Vascular Neurological: Dementia, Neuropathy, Stroke (with left-sided paralysis), TIA, Vertigo Reproductive: No (unknown) Sexually Transmitted Disease: No (unknown) HIV/AIDS: No Genitourinary: Kidney Infection, Bladder Infection, Kidney Stones, Renal Failure Gastrointestinal: Gastroesophageal Reflux, Gastrointestinal Bleed, Hiatal Hernia, Ulcer Musculoskeletal: Arthritis Endocrine: Diabetes, Insulin dep, Hypothyroidsim HEENT: Cataract, Dysphagia Psychosocial: Sleep Difficulties, Anxiety, Depression History of Blood Disorders: No Adverse Reaction to Blood Bautista: No Family History Reviewed Nursing Family Hx Cardiovascular disease 19 MOTHER Completed stroke 19 FATHER 19 MOTHER FH: emphysema Heart Disease, Diabetes Review of Systems Constitutional: see HPI, malaise EENTM: no symptoms reported Respiratory: dyspnea on exertion Physical Exam Physical Exam Vital Signs Vital Signs - First Documented 11/21/18 11/21/18 02:05 04:40 Temp 97.4 Pulse 90 Resp 20 B/P (MAP) 147/85 (105) Pulse Ox 95 O2 Delivery Nasal Cannula O2 Flow Rate 4.00 Capillary Refill : Less Than 3 Seconds Height, Weight, BMI Height: 6'2.00" Weight: 295lbs. 0.0oz. 133.117594gv; 37.9 BMI Method:Stated General Appearance: No Apparent Distress, WD/WN, Chronically ill, Obese Eyes: Right Eye Normal Inspection, Right Eye PERRL HEENT: PERRL/EOMI, Normal ENT Inspection, Pharynx Normal, Moist Mucous Membranes Neck: Full Range of Motion, Normal Inspection, Non Tender Respiratory: Chest Non Tender, Lungs Clear, No Accessory Muscle Use, No Respiratory Distress, Decreased Breath Sounds Cardiovascular: Regular Rate, Rhythm, No Edema, No Gallop, No JVD, No Murmur, Normal Peripheral Pulses Gastrointestinal: Normal Bowel Sounds, No Organomegaly, No Pulsatile Mass, Non Tender, Soft Back: Normal Inspection, No CVA Tenderness, No Vertebral Tenderness Extremity: Normal Capillary Refill, Normal Inspection, Normal Range of Motion (except left sided weakness), Non Tender, No Calf Tenderness, No Pedal Edema Neurologic/Psychiatric: Alert, No Motor/Sensory Deficits, Normal Mood/Affect, Disoriented, Motor Weakness (left side weakness) Skin: Normal Color, Warm/Dry Lymphatic: No Adenopathy Results Results/Procedures Labs Laboratory Tests 11/21/18 02:07 Patient resulted labs reviewed. Assessment/Plan Admission Diagnosis Assessment: NSTEMI Chest pain ARF on CRI CVA w/left sided weakness DM HTN HLP SUSHIL Plan: Appreciate Cardiology DNR Poor prognosis given NH placement permanently Admission Status: Inpatient Order (span 2 midnights) Reason for Inpatient Admission: elevated troponin will require 3 days inpatient Diagnosis/Problems Diagnosis/Problems (1) NSTEMI (non-ST elevated myocardial infarction) Status: Acute (2) COPD exacerbation Status: Acute (3) Acute on chronic respiratory failure Status: Acute Qualifiers: Respiratory failure complication: unspecified whether with hypoxia or hypercapnia Qualified Codes: J96.20 - Acute and chronic respiratory failure, unspecified whether with hypoxia or hypercapnia (4) ASVD (arteriosclerotic vascular disease) Status: Acute (5) Chronic kidney disease Status: Acute Qualifiers: Chronic kidney disease stage: stage 3 (moderate) Qualified Codes: N18.3 - Chronic kidney disease, stage 3 (moderate) (6) Acute on chronic renal failure Status: Acute Qualifiers: Acute renal failure type: unspecified Chronic kidney disease stage: stage 3 (moderate) Qualified Codes: N17.9 - Acute kidney failure, unspecified; N18.3 - Chronic kidney disease, stage 3 (moderate) (7) Elevated troponin Status: Acute (8) Paroxysmal atrial fibrillation Status: Acute Clinical Quality Measures DVT/VTE Risk/Contraindication: Risk Factor Score Per Nursin RFS Level Per Nursing on Admit: 4+=Very High JUAN MANUEL TEMPLETON DO Nov 21, 2018 10:57
[2018-11-21] MEDS: methylPREDNISolone 40 MG/ML (Solu-MEDROL) VIAL IV SCH ×3 (11:09→21:11)
[2018-11-21] MEDS ORDERED: ACETAMINOPHEN 325 MG TABLET PO PRN (11:15)
[2018-11-21] MEDS ORDERED: LACTULOSE SYRUP 10GM/15ML (ENULOSE) 30ML UDC PO PRN (12:00)
[2018-11-21] MEDS: GABAPENTIN 600 MG (NEURONTIN) TAB PO SCH ×2 (12:22→21:09)
[2018-11-21] MEDS: CALCIUM CARBONATE 500 MG (TUMS) TAB.CHEW PO SCH (12:22)
[2018-11-21] MEDS ORDERED: FUROSEMIDE 40 MG/4 ML INJ (LASIX) ONE (12:50)
--- NOTE | 2018-11-21 13:11 | NUR ---
THIS RN SPOKE WITH DR TEMPLETON REGARDING PT WORSENING SHORTNESS OF BREATH, RT GAVE PT PRN TREATMENT BUT PT POSTERIOR BILAT BASE OF LUNGS HAVE CRACKLES, THIS RN ASKED IF PT COULD HAVE LASIX, DR TEMPLETON ASKED FOR THIS RN TO CLARIFY WITH DR RODRIGUEZ REGARDING LASIX AND PT KIDNEYS. THIS RN SPOKE TO DR RODRIGUEZ, ORDERS RECEIVED FOR 40MG IV LASIX X1. LASIX GIVEN TO PT. CERDA CATHETER PLACED AT THIS TIME USING STERILE TECHNIQUE, PT TOLERATED WELL. WILL CONTINUE TO MONITOR.
[2018-11-21] MEDS ORDERED: LORazepam INJ 2 MG/ML (ATIVAN) VIAL ONE (13:38)
[2018-11-21] MEDS ORDERED: LORazepam INJ 2 MG/ML (ATIVAN) VIAL IVP PRN (13:45)
[2018-11-21] MEDS: DIVALPROX SPRINKLE 125 MG (DEPAKOTE) CAP PO SCH ×2 (13:46→21:08)
--- NOTE | 2018-11-21 15:19 | Pulmonary Consultation ---
History of Present Illness History of Present Illness Date of Consultation 11/21/18 15:14 Time Seen by Provider: 15:14 Date of Admission History of Present Illness 73yo presented to ED via EMS secondary to worsening CP over the last 1 wk. He was discharged from [facility] about one week ago after being treated for kidney failure. PT was found to have HR of 200 by EMS. Denies SOB. Allergies and Home Medications Allergies Coded Allergies: morphine (Verified Adverse Reaction, Intermediate, psychosis, 09/12/12) Home Medications Acetaminophen 325 Mg Tablet, 650 MG PO Q4H PRN for PAIN-MILD OR TEMPATURE, (Reported) Apixaban 5 Mg Tablet, 5 MG PO BID, (Reported) Aspirin 81 Mg Tablet.dr, 81 MG PO DAILY, (Reported) Atorvastatin Calcium 40 Mg Tablet, 40 MG PO HS Prescribed by: JUAN MANUEL TEMPLETON on 11/23/181002 Buspirone HCl 15 Mg Tablet, 15 MG PO BID, (Reported) Calcium Carbonate 500 Mg Tablet, 750 MG PO DAILY, (Reported) Cholecalciferol (Vitamin D3) 1,000 Unit Tablet, 2,000 UNIT PO DAILY, (Reported) Divalproex Sodium 125 Mg Cap, 125 MG PO TID, (Reported) Gabapentin 300 Mg Capsule, 600 MG PO TID, (Reported) TAKES 2 (300MG) CAPSULES Insulin Aspart 100 Unit/1 Ml Susp, 10 UNIT SQ TIDAC, (Reported) Insulin Determir 1,000 Units/10 Ml Soln, 38 UNITS SQ BID, (Reported) Lactulose 20 Gm/30 Ml Solution, 30 ML PO Q12H PRN for CONSTIPATION-3RD LINE, (Reported) Levothyroxine Sodium 200 Mcg Tablet, 200 MCG PO DAILY, (Reported) Loperamide HCl 2 Mg Tablet, PO UD PRN for DIARRHEA, (Reported) GIVE 2 TABS AFTER FIRST LOOSE STOOL THEN 1 TAB AFTER EACH OTHER LOOSE STOOL, MAX OF 4 PILLS PER DAY Loratadine 10 Mg Tablet, 10 MG PO DAILY, (Reported) Melatonin 3 Mg Tablet, 3 MG PO HS, (Reported) Metoprolol Succinate 100 Mg Tab.er.24h, 100 MG PO DAILY Prescribed by: JUAN MANUEL TEMPLETON on 11/23/18 100 Multivitamin with Minerals 1 Each Tablet, 1 TAB PO DAILY, (Reported) Oxymetazoline HCl 30 Ml [place], 1 SPRAY NS Q8H PRN for EPISTAXIS, (Reported) Prednisone 10 Mg Tab.ds.pk, 40 MG PO DAILY Prescribed by: JUAN MANUEL TEMPLETON on 11/23/18 1003 Ranitidine HCl 150 Mg Tablet, 150 MG PO DAILY, (Reported) Rivastigmine 9.5 Mg Patch, 9.5 MG TD DAILY, (Reported) Sodium Chloride 50 Ml [place], 2 SPRAYS NS HS, (Reported) Venlafaxine HCl 75 Mg Tab, 75 MG PO BID, (Reported) Past Jrkjfhp-Dcajkg-Sybwsw Hx Past Med/Social Hx: Reviewed Nursing Past Med/Soc Hx Patient Social History Alcohol Use: Past History Recreational Drug Use: No Type Used: Cigarettes, Pipe Former Smoker, Quit: Nov 01, 2012 2nd Hand Smoke Exposure: Yes Recent Foreign Travel: No Contact w/Someone Who Travel: No Recent Infectious Disease Expo: No Recent Hopitalizations: No Immunizations Up To Date Tetanus Booster (TDap): Unknown Date of Pneumonia Vaccine: Mar 15, 2012 Date of Influenza Vaccine: Feb 22, 2018 Past Medical History Surgeries: Yes Cardiac, CABG, Eye Surgery, Vascular Surgery Respiratory: Yes (PNEUMONIA WITH SEPSIS) Pneumonia, Sleep Apnea, COPD Currently Using CPAP: No Cardiac: Yes Atrial Fibrillation, Coronary Artery Disease, High Cholesterol, Hypertension, Peripheral Vascular Neurological: Yes Dementia, Neuropathy, Stroke (with left-sided paralysis), TIA, Vertigo Reproductive Disorders: No (unknown) Sexually Transmitted Disease: No (unknown) HIV/AIDS: No Genitourinary: Yes Kidney Infection, Bladder Infection, Kidney Stones, Renal Failure Gastrointestinal: Yes Gastroesophageal Reflux, Gastrointestinal Bleed, Hiatal Hernia, Ulcer Musculoskeletal: Yes (CHRONIC LEFT SHOULDER PAIN; IMPAIRED MOBILITY; FALLS) Arthritis Endocrine: Yes Diabetes, Insulin dep, Hypothyroidsim HEENT: Yes Cataract, Dysphagia Cancer: No Psychosocial: Yes Sleep Difficulties, Anxiety, Depression Integumentary: Yes (CELLULITIS LEFT FOOT; WOUND RIGHT POSTERIOR THIGH; LEFT ANKLE) Blood Disorders: No Adverse Reaction/Blood Tranf: No Family Medical History Reviewed Nursing Family Hx Cardiovascular disease 19 MOTHER Completed stroke 19 FATHER 19 MOTHER FH: emphysema Heart Disease, Diabetes Review of Systems Time Seen by Provider: 09:44 Sepsis Event Evaluation Height, Weight, BMI Height: 6'2.00" Weight: 295lbs. 0.0oz. 133.774831zd; 37.9 BMI Method:Stated Exam Exam Vital Signs Date Time Temp Pulse Resp B/P (MAP) Pulse Ox O2 Delivery O2 Flow Rate FiO2 11/21/18 14:00 87 19 92 Nasal Cannula 2.00 11/21/18 13:00 78 21 128/94 (105) 94 Nasal Cannula 2.00 11/21/18 13:00 78 11/21/18 12:45 96 Nasal Cannula 2.00 11/21/18 12:00 Nasal Cannula 2.00 11/21/18 12:00 96.8 11/21/18 12:00 78 20 128/94 (105) Nasal Cannula 2.00 11/21/18 10:31 97 Nasal Cannula 4.00 11/21/18 08:00 97.1 11/21/18 08:00 82 12 155/85 (108) 94 Nasal Cannula 2.00 11/21/18 08:00 Nasal Cannula 2.00 11/21/18 08:00 Nasal Cannula 2.00 11/21/18 07:00 78 11/21/18 06:56 80 16 98 Nasal Cannula 2.00 11/21/18 06:49 99 Nasal Cannula 4.00 11/21/18 06:15 79 17 142/90 (107) 100 Nasal Cannula 4.00 11/21/18 06:00 80 14 136/80 (98) 98 Nasal Cannula 4.00 11/21/18 05:45 81 15 140/76 (97) 100 Nasal Cannula 4.00 11/21/18 05:30 84 15 145/79 (101) 100 Nasal Cannula 4.00 11/21/18 05:15 84 16 128/84 (99) 100 Nasal Cannula 4.00 11/21/18 05:02 99 Nasal Cannula 4.00 11/21/18 05:00 97.3 82 18 122/80 (94) 99 Nasal Cannula 99.00 4.00 11/21/18 04:51 84 11/21/18 04:40 97.4 88 20 166/101 (122) 95 Nasal Cannula 4.00 11/21/18 02:42 97 Nasal Cannula 4.00 11/21/18 02:24 96 Nasal Cannula 4.00 11/21/18 02:05 97.4 90 147/85 (105) 95 Nasal Cannula 4.00 11/21/18 02:05 95 Nasal Cannula 4.00 I & O 11/21/18 06:59 Intake Total 0 ml Output Total 475 ml Balance -475 ml Height & Weight Height: 6'2.00" Weight: 295lbs. 0.0oz. 133.530107nt; 37.9 BMI Method:Stated General Appearance: No Apparent Distress, WD/WN, Obese HEENT: PERRL/EOMI, Normal ENT Inspection Neck: Normal Inspection; No JVD Respiratory: Accessory Muscle Use; No Crackles; Decreased Breath Sounds, Wheezing Cardiovascular: Regular Rate, Rhythm, No Murmur Capillary Refill: Less Than 3 Seconds Extremity: Non Tender, Pedal Edema Neurologic/Psychiatric: Alert, Oriented x3, No Motor/Sensory Deficits, Normal Mood/Affect, human resources associate II-XII Norm as Tested Skin: Normal Color, Warm/Dry Results Lab Laboratory Tests 11/21/18 02:07 Assessment/Plan Assessment/Plan COPDAE -Oxygen -Solumedrol -SVNs Pulmonary edema with hypoxia -oxygen CP with NSTEMI -Cardiology following CAD Renal failure -Monitor CONNER FIGUEROA DO Nov 21, 2018 15:19
[2018-11-21] MEDS: inSUlin ASPART (NovoLOG) 1 UNIT/0.01 ML (CHARGE PER UNIT) SC SCH ×2 (16:54→18:22)
[2018-11-21] MEDS ORDERED: APIXABAN 5 MG (ELIQUIS) TABLET PO SCH (21:00)
[2018-11-21] MEDS ORDERED: SODIUM CHLORIDE NS SCH (21:00)
[2018-11-21] MEDS ORDERED: [UNRECOGNIZED DRUG - OTHER] NS SCH (21:00)
[2018-11-21] MEDS: MELATONIN 3 MG TABLET PO SCH (21:08)
[2018-11-21] MEDS: CARVEDILOL 6.25 MG (COREG) TAB PO SCH (21:09)
[2018-11-21] MEDS: busPIRone 15 MG (BUSPAR) TABLET PO SCH (21:09)
[2018-11-21] MEDS: VENlafaxine 75 MG (EFFEXOR) TAB PO SCH (21:09)
[2018-11-21] MEDS: SALINE NASAL SPRAY (OCEAN) 45 ML BTL SCH (21:10)
--- NOTE | 2018-11-21 22:59 | Consultation-Cardiology ---
HPI-Cardiology Cardiology Consultation: Date of Consultation 11/21/18 Date of Admission Attending Physician Thanh Kinney MD Admitting Physician Charles Pham MD Consulting Physician Grace LUCIANO MD HPI: Time Seen by a Provider: 08:30 Chief Complaint: chest pain this is a 73-year-old gentleman who has history of CAD, previous PCI, CABG, follows Dr. Palomo. Also has history of PAD and previous intervention by Dr. Sneed. He presents with chest pain for the last one week. He was recently discharged from [facility] for acute renal failure. EMS also noted episodes of tachycardia. There is a possible history of atrial fibrillation as well. Patient was not complaining of chest pain when I saw him. He denies any syncope, near syncope or palpitation during my evaluation. Review of Systems-Cardiology Review of Systems Constitutional: As described under HPI; No As described under HPI, No no symptoms reported, No chills, No fever, No lightheadedness Eyes: No As described under HPI, No no symptoms reported, No blindness, No blurred vision, No contact lenses, No drainage, No decreased acuity, No foreign body sensation, No pain, No vision change Ears/Nose/Throat: No As described under HPI, No no symptoms reported, No chronic hearing loss, No ear discharge, No ear pain, No nasal drainage, No ulcerations Respiratory: No no symptoms reported; As described under HPI; No As described under HPI, No cough, No orthopnea, No shortness of breath, No SOB with excertion Cardiovascular: No no symptoms reported; As described under HPI; No As described under HPI; chest pain; No edema, No irregular heart rate, No lightheadedness, No palpitations Gastrointestinal: No no symptoms reported, No As described under HPI, No abdomen distended, No abdominal pain, No blood streaked bowels, No constipation, No diarrhea, No nausea, No vomiting, No stool coloration changes Genitourinary: No As described under HPI, No burning, No dysuria, No discharge, No frequency, No flank pain, No hematuria, No urgency Skin: No rash, No skin related problems, No ulcerations Psychiatric/Neurological: No anxiety, No depression, No seizure, No focal weakness, No syncope Hematologic: No bleeding abnormalities KCJ-Mftqrx-Gkinip Hx Patient Social History Marrital Status: Employed/Student: retired Alcohol Use: Past History Recreational Drug Use: No Smoking Status: Former Smoker Former smoker/When Quit: Mar 20, 2012 Type Used: Cigarettes, Pipe 2nd Hand Smoke Exposure: Yes Recent Foreign Travel: No Recent Infectious Disease Expo: No Hospitalization with Isolation: Denies Immunizations Up To Date Tetanus Booster (TDap): Unknown Date of Pneumonia Vaccine: Mar 15, 2012 Date of Influenza Vaccine: Feb 22, 2018 Past Medical History PMH As described under Assessment. Family Medical History Family History: Cardiovascular disease 19 MOTHER Completed stroke 19 FATHER 19 MOTHER FH: emphysema Allergies and Home Medications Allergies Coded Allergies: morphine (Verified Adverse Reaction, Intermediate, psychosis, 09/12/12) Home Medications Acetaminophen 325 Mg Tablet, 650 MG PO Q4H PRN for PAIN-MILD OR TEMPATURE, (Reported) Apixaban 5 Mg Tablet, 5 MG PO BID, (Reported) Aspirin 81 Mg Tablet.dr, 81 MG PO DAILY, (Reported) Buspirone HCl 15 Mg Tablet, 15 MG PO BID, (Reported) Calcium Carbonate 500 Mg Tablet, 750 MG PO DAILY, (Reported) Carvedilol 6.25 Mg Tablet, 6.25 MG PO BID, (Reported) Cholecalciferol (Vitamin D3) 1,000 Unit Tablet, 2,000 UNIT PO DAILY, (Reported) Divalproex Sodium 125 Mg Cap, 125 MG PO TID, (Reported) Gabapentin 300 Mg Capsule, 600 MG PO TID, (Reported) TAKES 2 (300MG) CAPSULES Insulin Aspart 100 Unit/1 Ml Susp, 10 UNIT SQ TIDAC, (Reported) Insulin Determir 1,000 Units/10 Ml Soln, 38 UNITS SQ BID, (Reported) Lactulose 20 Gm/30 Ml Solution, 30 ML PO Q12H PRN for CONSTIPATION-3RD LINE, (Reported) Levothyroxine Sodium 200 Mcg Tablet, 200 MCG PO DAILY, (Reported) Loperamide HCl 2 Mg Tablet, PO UD PRN for DIARRHEA, (Reported) GIVE 2 TABS AFTER FIRST LOOSE STOOL THEN 1 TAB AFTER EACH OTHER LOOSE STOOL, MAX OF 4 PILLS PER DAY Loratadine 10 Mg Tablet, 10 MG PO DAILY, (Reported) Melatonin 3 Mg Tablet, 3 MG PO HS, (Reported) Multivitamin with Minerals 1 Each Tablet, 1 TAB PO DAILY, (Reported) Oxymetazoline HCl 30 Ml [place], 1 SPRAY NS Q8H PRN for EPISTAXIS, (Reported) Ranitidine HCl 150 Mg Tablet, 150 MG PO DAILY, (Reported) Rivastigmine 9.5 Mg Patch, 9.5 MG TD DAILY, (Reported) Sodium Chloride 50 Ml [place], 2 SPRAYS NS HS, (Reported) Venlafaxine HCl 75 Mg Tab, 75 MG PO BID, (Reported) Patient Home Medication List Home Medication List Reviewed: Yes Physical Exam-Cardiology Physical Exam Vital Signs/I&O 11/22/18 11/22/18 11/22/18 11/22/18 04:00 04:17 04:18 06:53 Temp 97.4 Pulse 69 69 Resp 17 17 B/P (MAP) 96/53 (67) Pulse Ox 89 94 O2 Delivery NIV Bilevel NIV Bilevel O2 Flow Rate 50.00 40.00 FiO2 40 11/22/18 11/22/18 11/22/18 11/22/18 07:00 07:00 08:00 09:00 Temp 97.6 Pulse 62 70 Resp 12 B/P (MAP) 99/58 (72) Pulse Ox 92 O2 Delivery NIV Bilevel Nasal Cannula Nasal Cannula O2 Flow Rate 40.00 2.00 2.00 11/22/18 11/22/18 10:54 14:05 Pulse Ox 91 91 O2 Delivery Nasal Cannula Nasal Cannula O2 Flow Rate 5.00 3.00 11/22/18 00:00 Intake Total 280 ml Output Total 800 ml Balance -520 ml Capillary Refill : Less Than 3 Seconds Constitutional: appears stated age, AAO x 3; No apparent distress; well-develop ed, well-nourished HEENT: PERRL; No discharge; hearing is well preserved, oral hygience is good; No ulceration, No xanthelasmas are seen Neck: No non-tender, No full range of motion, No supple, No normal inspection, No carotid bruit, No limited range of motion, No lymphadenopathy (R), No lymphadenopathy (L), No tender lateral, No tender midline, No thyromegaly, No other; carotid pulses are 2 + bilaterally; No with good upstrokes Respiratory: No accessory muscle use, No respiratory distress, No chest tender, No chest expansion is symmetric; chest is bilaterally symmetric; No lungs clear to percussion; lungs clear to auscultation; No crackles, No rhonchi, No rales, No stridor, No wheezing, No pleural rub, No other Cardiovascular: regular rate-rhythm; No irregularly irregular, No extra beats, No parasternal heave is noted, No JVD, No edema, No bradycardia, No tachycardia, No point of maximal impulse, No cardiac thrills are palpable; S1 and S2; No gallop/S3, No gallop/S4, No diastolic murmur, No systolic murmur, No friction rub, No click, No other Gastrointestinal: No tender, No soft, No round, No distended, No pulsatile mass, No organomegaly, No guarding, No rebound, No tenderness, No hernia, No mass, No audible bowel sounds, No abnormal bowel sounds, No abdominal bruits, No spleenomegaly, No other Rectal: deferred Extremities: No normal range of motion, No non-tender, No normal inspection, No pedal edema, No calf tenderness, No normal capillary refill, No pelvis stable, No calf tenderness, No inflammation, No pedal edema, No slow capillary refill, No swelling, No other, No abrasion, No clubbing, No cyanosis, No ecchymosis, No laceration, No no lower extremity edema bilateral, No significant edema, No tenderness, No wound Neurologic/Psychiatric: no motor/sensory deficits, alert, normal mood/affect, oriented x 3, power is 5/5 both on sides Skin: No rash, No ulcerations Data Review Labs Laboratory Tests 11/21/18 16:27: Glucometer 376H 11/21/18 18:11: Glucometer 288H 11/22/18 01:17: Glucometer 315H 11/22/18 03:17: White Blood Count 13.5H, Red Blood Count 4.16L, Hemoglobin 11.8L, Hematocrit 38L , Mean Corpuscular Volume 90, Mean Corpuscular Hemoglobin 28, Mean Corpuscular Hemoglobin Concent 32, Red Cell Distribution Width 14.8H, Platelet Count 287, Mean Platelet Volume 10.9H, Neutrophils (%) (Auto) 81H, Lymphocytes (%) (Auto) 16, Monocytes (%) (Auto) 3, Eosinophils (%) (Auto) 0, Basophils (%) (Auto) 0, N eutrophils # (Auto) 10.9H, Lymphocytes # (Auto) 2.2, Monocytes # (Auto) 0.4, Eosinophils # (Auto) 0.0, Basophils # (Auto) 0.0, Sodium Level 138, Potassium Level 4.6, Chloride Level 102, Carbon Dioxide Level 26, Anion Gap 10, Blood Urea Nitrogen 34H, Creatinine 1.92H, Estimat Glomerular Filtration Rate 35, BUN/Creatinine Ratio 18, Glucose Level 296H, Calcium Level 8.9, Corrected Calcium 9.5, Total Bilirubin 0.3, Aspartate Amino Transf (AST/SGOT) 16, Alanine Aminotransferase (ALT/SGPT) 26, Alkaline Phosphatase 98, Total Protein 6.3L, Albumin 3.3, Triglycerides Level 80, Cholesterol Level 225H, LDL Cholesterol Direct 176H, VLDL Cholesterol 16, HDL Cholesterol 38L 11/22/18 10:49: Glucometer 287H ECG Impression ECG Initial ECG Rhythm: Normal Sinus Comment sinus rhythm, left bundle branch block. A/P-Cardiology Assessment/Admission Diagnosis non-STEMI, History of CAD, PCI, CABG, Hypertension, Hyperlipidemia, PAD, Chronic kidney disease. Plan non-STEMI, request echocardiogram. I had delayed coronary angiography due to renal dysfunction. We will give dual antiplatelet therapy. History of CAD, PCI, CABG,previous history of PCI to LAD. In 2011 occluded LAD stent. CABG. Hypertension,Continue carvedilol. Hyperlipidemia, patient is not on statin therapy. PAD, previous history of below the knee intervention by Dr. Sneed in 2014. Chronic kidney disease, stage 3/4. Thank you for your consultation. Please call me if you have any questions. Alyssa Luciano MD, FACP, FACC, FSCAI, FHRS, CCDS Interventional Cardiology Cardiac Electrophysiology Vascular Medicine and Endovascular Interventions Clinical Quality Measures DVT/VTE Risk/Contraindication: Risk Factor Score Per Nursin RFS Level Per Nursing on Admit: 4+=Very High Grace LUCIANO MD Nov 21, 2018 22:59
[2018-11-22] VITALS (7 sets, daily range): BP systolic 96–117; BP diastolic 53–76
[2018-11-22] MEDS: risperiDONE 1 MG (RisperDAL) TAB PO SCH ×2 (01:18→20:00)
[2018-11-22] MEDS: inSUlin ASPART (NovoLOG) 1 UNIT/0.01 ML (CHARGE PER UNIT) SC SCH ×8 (01:33→20:51)
[2018-11-22] MEDS: RT-ALBUTEROL/IPRATROPIUM 3 ML (DUONEB) VIAL IH SCH ×6 (02:30→22:26)
[2018-11-22] MEDS: methylPREDNISolone 40 MG/ML (Solu-MEDROL) VIAL IV SCH ×4 (02:57→22:33)
[2018-11-22 03:50] LABS: BASOPHILS % (AUTO) 0 % (0-10); EOSINOPHILS % (AUTO) 0 % (0-10); HEMATOCRIT 38 % (40-54); HEMOGLOBIN 11.8 G/DL (13.3-17.7); LYMPHOCYTES # (AUTO) 2.2 X 10^3 (1.0-4.0); LYMPHOCYTES % (AUTO) 16 % (12-44); MEAN CORPUSCULAR HEMOGLOBIN 28 PG (25-34); MEAN CORPUSCULAR HGB CONC 32 G/DL (32-36); MEAN CORPUSCULAR VOLUME 90 FL (80-99); MEAN PLATELET VOLUME 10.9 FL (7.4-10.4); MONOCYTES # (AUTO) 0.4 X 10^3 (0.0-1.0); MONOCYTES % (AUTO) 3 % (0-12); NEUTROPHILS # (AUTO) 10.9 X 10^3 (1.8-7.8); NEUTROPHILS % (AUTO) 81 % (42-75); PLATELET COUNT 287 10^3/uL (130-400); RED CELL DISTRIBUTION WIDTH 14.8 % (10.0-14.5); WHITE BLOOD COUNT 13.5 10^3/uL (4.3-11.0)
[2018-11-22 04:12] LABS: ALBUMIN 3.3 GM/DL (3.2-4.5); BILIRUBIN,TOTAL 0.3 MG/DL (0.1-1.0); CALCIUM 8.9 MG/DL (8.5-10.1); CREATININE SERUM 1.92 MG/DL (0.60-1.30); POTASSIUM 4.6 MMOL/L (3.6-5.0); TOTAL PROTEIN 6.3 GM/DL (6.4-8.2)
[2018-11-22 04:13] LABS: CHOLESTEROL 225 MG/DL (< 200); HDL CHOLESTEROL 38 MG/DL (40-60); TRIGLYCERIDES 80 MG/DL (<150); VLDL CHOLESTEROL 16 MG/DL (5-40)
[2018-11-22] MEDS: LEVOTHYROXINE 100 MCG (LEVOTHROID) TAB PO SCH (05:39)
--- NOTE | 2018-11-22 06:19 | Diagnostic Imaging Report ---
EXAMINATION: Portable erect AP chest at 3:40 AM INDICATION: Respiratory distress The appearance of the chest has worsened since the prior study of 11/21/2018 as the left lung base is now opacified by atelectasis/infiltrate and fluid. In addition, vague areas of increased density have developed in the left midlung and overlying the right midlung and right lung base. These abnormal densities may be related to pneumonia/atelectasis and fluid as well. The possibility that there is an element of pulmonary edema present should also be considered. The heart is enlarged but stable. The mediastinum is not widened. The osseous structures are intact. The sternotomy wires and surgical clips are again evident and no different. IMPRESSION: The appearance of the chest has worsened since the prior study as there is greater involvement of both lungs by pneumonia/atelectasis and fluid. There may also be an element of pulmonary edema present. A followup study would be recommended for continued evaluation. Dictated by: Dictated on workstation # [id number]
[2018-11-22] MEDS ORDERED: NS IV 1000 ML 1,000 ML ONE (06:29)
[2018-11-22] MEDS ORDERED: OXYMETAZOLINE (AFRIN) 0.05% NA 15 ML BTL PRN (06:45)
[2018-11-22] MEDS ORDERED: NS (IVPB) 500 ML IV ONE (06:45)
[2018-11-22] MEDS: CALCIUM CARBONATE 500 MG (TUMS) TAB.CHEW PO SCH (07:41)
[2018-11-22] MEDS: busPIRone 15 MG (BUSPAR) TABLET PO SCH ×2 (07:41→20:07)
[2018-11-22] MEDS: VITAMIN D3 1,000 UNITS (CHOLECALCIFEROL) TABLET PO SCH (07:41)
[2018-11-22] MEDS: VENlafaxine 75 MG (EFFEXOR) TAB PO SCH ×2 (07:42→20:00)
[2018-11-22] MEDS: ASPIRIN E.C. 81 MG (ECOTRIN) TAB PO SCH (07:42)
[2018-11-22] MEDS: MULTIVIT W/MINERALS TAB (THERAGRAN M) PO SCH (07:42)
[2018-11-22] MEDS: FAMOTIDINE 20 MG (PEPCID) TABLET PO SCH (07:42)
[2018-11-22] MEDS: CARVEDILOL 6.25 MG (COREG) TAB PO SCH ×2 (07:43→20:01)
[2018-11-22] MEDS: DIVALPROX SPRINKLE 125 MG (DEPAKOTE) CAP PO SCH ×3 (07:43→20:00)
[2018-11-22] MEDS: LORATADINE (CLARITIN) 10 MG TAB PO SCH (07:43)
[2018-11-22] MEDS: APIXABAN 5 MG (ELIQUIS) TABLET PO SCH ×2 (07:43→20:00)
[2018-11-22] MEDS: meTOprolol SUCCINATE 100 MG (TOPROL XL) TAB PO SCH (07:43)
[2018-11-22] MEDS: GABAPENTIN 600 MG (NEURONTIN) TAB PO SCH ×3 (07:44→20:00)
--- NOTE | 2018-11-22 08:26 | Pulmonary Progress Note ---
Subjective Time Seen by a Provider: 08:29 Subjective/Events-last exam PT used BiPAP last night secondary to SUSHIL. Sepsis Event Evaluation Height, Weight, BMI Height: 6'2.00" Weight: 294lbs. 2.0oz. 133.437608bf; 37.9 BMI Method:Stated Exam Exam Vital Signs Date Time Temp Pulse Resp B/P (MAP) Pulse Ox O2 Delivery O2 Flow Rate FiO2 11/22/18 07:00 97.6 62 12 99/58 (72) 92 NIV Bilevel 40.00 11/22/18 06:53 69 17 94 40.00 11/22/18 04:18 NIV Bilevel 40 11/22/18 04:17 97.4 11/22/18 04:00 69 17 96/53 (67) 89 NIV Bilevel 50.00 11/22/18 02:31 93 Nasal Cannula 2.00 11/22/18 01:00 69 11/22/18 00:55 NIV Bilevel 40 11/22/18 00:00 69 11 99/59 (72) 92 NIV Bilevel 40.00 11/21/18 22:23 73 14 93 40.00 11/21/18 21:50 NIV Bilevel 40 11/21/18 20:45 NIV Bilevel 40 11/21/18 20:00 97.0 11/21/18 20:00 81 14 118/70 (86) 94 NIV Bilevel 40.00 11/21/18 19:52 81 14 94 40.00 11/21/18 19:00 81 11/21/18 18:52 92 Nasal Cannula 2.00 11/21/18 18:00 80 14 92 Nasal Cannula 2.00 11/21/18 17:00 80 15 142/81 (101) 93 Nasal Cannula 2.00 11/21/18 16:00 Nasal Cannula 2.00 11/21/18 16:00 96.9 11/21/18 16:00 82 15 93 Nasal Cannula 2.00 11/21/18 15:10 92 Nasal Cannula 2.00 11/21/18 15:00 82 16 93 Nasal Cannula 2.00 11/21/18 14:00 87 19 92 Nasal Cannula 2.00 11/21/18 13:00 78 21 128/94 (105) 94 Nasal Cannula 2.00 11/21/18 13:00 78 11/21/18 12:45 96 Nasal Cannula 2.00 11/21/18 12:00 Nasal Cannula 2.00 11/21/18 12:00 96.8 11/21/18 12:00 78 20 128/94 (105) Nasal Cannula 2.00 11/21/18 10:31 97 Nasal Cannula 4.00 I & O 11/22/18 07:00 Intake Total 380 ml Output Total 950 ml Balance -570 ml Height & Weight Height: 6'2.00" Weight: 294lbs. 2.0oz. 133.068924ix; 37.9 BMI Method:Stated General Appearance: No Apparent Distress, WD/WN, Chronically ill, Obese HEENT: PERRL/EOMI, Normal ENT Inspection, Pharynx Normal, Moist Mucous Membranes Neck: Full Range of Motion, Normal Inspection, Non Tender Respiratory: Chest Non Tender, Lungs Clear, No Accessory Muscle Use, No Respiratory Distress, Decreased Breath Sounds Cardiovascular: Regular Rate, Rhythm, No Edema, No Gallop, No JVD, No Murmur, Normal Peripheral Pulses Capillary Refill: Less Than 3 Seconds Extremity: Normal Capillary Refill, Normal Inspection, Normal Range of Motion (except left sided weakness), Non Tender, No Calf Tenderness, No Pedal Edema Neurologic/Psychiatric: Alert, No Motor/Sensory Deficits, Normal Mood/Affect, Disoriented, Motor Weakness (left side weakness) Skin: Normal Color, Warm/Dry Lymphatic: No Adenopathy Results Lab Laboratory Tests 11/21/18 02:07 11/22/18 03:17 Assessment/Plan Assessment/Plan COPDAE -Pt is currently on BIPAP secondary to SUSHIL -Solumedrol -PT is a DNR. -SVNs Leukocytosis -Secondary to steroids Pulmonary edema with hypoxia -oxygen -Continue Lasix SUSHIL -Will use BiPAP at night Obesity with OHS -BiPAP at night CP with NSTEMI -Cardiology following Debility -PT/OT CAD Renal failure -Monitor CVA with left sided weakness hx CONNER AWAN DO Nov 22, 2018 08:26
[2018-11-22] MEDS ORDERED: NON-FORMULARY MEDICATION 1 EA EA (Ranitidine HCl 150 MG) PO SCH (09:00)
[2018-11-22] MEDS ORDERED: NON-FORMULARY MEDICATION 1 EA EA (Rivastigmine (Exelon) 9.5 MG) TD SCH (09:00)
[2018-11-22] MEDS: FUROSEMIDE 40 MG/4 ML INJ (LASIX) IVP SCH (09:32)
--- NOTE | 2018-11-22 10:39 | Progress Note - Hospitalist ---
Subjective HPI/CC On Admission Date Seen by Provider: Nov 22, 2018 Time Seen by Provider: 10:00 CC: Dyspnea HPI: This is a 73yoWM NH patient of Dr Pham known to me from prior geripsych unit admits who presents to the ICU after complaints of chest pain, dyspnea and desaturation at intermediate. Patient was found to have volume overload with elevated troponin along with chronic renal failure further complicating diuresis. He suffered a catastrophic CVA 3 years ago and resides in a NH since that time. Patient currently is unable to tell me any significant details. He was just DC from [facility] for renal failure. Creatinine baseline 1.[address] Luciano consult Chronic issues including stroke with hemiparesis Home meds were restarted Overall very poor prognosis Updated Dr. Pham Subjective/Events-last exam Echocardiogram completed today. Lasix IV still given for diuresis. Updated sister on the plan for likely discharge to [facility] tomorrow. Oxygen supplementation and Nebulizer treatments continue to benefit the Pt. Overall very severe, poor prognosis given his sever comorbidities including renal failure. Review of Systems General: Fatigue Pulmonary: Dyspnea Objective Exam Vital Signs Vital Signs Date Time Temp Pulse Resp B/P (MAP) Pulse Ox O2 Delivery O2 Flow Rate FiO2 11/22/18 19:50 97.5 78 20 113/72 (86) 93 Nasal Cannula 2.50 11/22/18 04:18 40 Capillary Refill : Less Than 3 Seconds General Appearance: No Apparent Distress, WD/WN, Chronically ill, Obese HEENT: PERRL/EOMI, Normal ENT Inspection, Pharynx Normal, Moist Mucous Membranes Neck: Full Range of Motion, Normal Inspection, Non Tender Respiratory: Chest Non Tender, Lungs Clear, No Accessory Muscle Use, No Respiratory Distress, Decreased Breath Sounds Cardiovascular: Regular Rate, Rhythm, No Edema, No Gallop, No JVD, No Murmur, Normal Peripheral Pulses Gastrointestinal: Normal Bowel Sounds, No Organomegaly, No Pulsatile Mass, Non Tender, Soft Back: Normal Inspection, No CVA Tenderness, No Vertebral Tenderness Extremity: Normal Capillary Refill, Normal Inspection, Normal Range of Motion (except left sided weakness), Non Tender, No Calf Tenderness, No Pedal Edema Neurologic/Psychiatric: Alert, No Motor/Sensory Deficits, Normal Mood/Affect, Disoriented, Motor Weakness (left side weakness) Skin: Normal Color, Warm/Dry Lymphatic: No Adenopathy Results/Procedures Lab Laboratory Tests 11/22/18 03:17 Patient resulted labs reviewed. Assessment/Plan Assessment and Plan Assess & Plan/Chief Complaint Assessment: NSTEMI Chest pain ARF on CRI CVA w/left sided weakness DM HTN HLP SUSHIL Plan: Appreciate Cardiology DNR Poor prognosis given NH placement permanently Diagnosis/Problems Diagnosis/Problems (1) NSTEMI (non-ST elevated myocardial infarction) Status: Acute (2) COPD exacerbation Status: Acute (3) Acute on chronic respiratory failure Status: Acute Qualifiers: Respiratory failure complication: unspecified whether with hypoxia or hypercapnia Qualified Codes: J96.20 - Acute and chronic respiratory failure, unspecified whether with hypoxia or hypercapnia (4) ASVD (arteriosclerotic vascular disease) Status: Acute (5) Chronic kidney disease Status: Acute Qualifiers: Chronic kidney disease stage: stage 3 (moderate) Qualified Codes: N18.3 - Chronic kidney disease, stage 3 (moderate) (6) Acute on chronic renal failure Status: Acute Qualifiers: Acute renal failure type: unspecified Chronic kidney disease stage: stage 3 (moderate) Qualified Codes: N17.9 - Acute kidney failure, unspecified; N18.3 - Chronic kidney disease, stage 3 (moderate) (7) Elevated troponin Status: Acute (8) Paroxysmal atrial fibrillation Status: Acute Clinical Quality Measures DVT/VTE Risk/Contraindication: Risk Factor Score Per Nursin RFS Level Per Nursing on Admit: 4+=Very High JUAN MANUEL TEMPLETON DO Nov 22, 2018 10:39
--- NOTE | 2018-11-22 11:40 | Physical Therapy Evaluation ---
PT Evaluation-General Medical Diagnosis Admission Date Nov 21, 2018 at 03:58 Medical Diagnosis: NStemi/COPD exacerbation Onset Date: Nov 21, 2018 Therapy Diagnosis Therapy Diagnosis: debility/weakness Height/Weight Height (Feet): 6 Height (Inches): 2.00 Weight (Pounds): 294 Weight (Ounces): 2.0 Precautions Precautions/Isolations: Contact Isolation, Fall Prevention Referral Physician: Lisha Reason for Referral: Evaluation/Treatment Medical History Pertinent Medical History: Atrial Fib, CABG, CAD, CVA (left hemiparesis), DM, Dementia, HTN, Neuropathy, PVD, Renal Insufficiency, Smoking Current History EMS secondary to CP x 1 week and tachycardia Reviewed History: Yes Social History Home: Alf Prior/Core FIM Prior Level of Function Therapy Code Descriptions/Definitions Functional Troutman Measure: 0=Not Assessed/NA 4=Minimal Assistance 1=Total Assistance 5=Supervision or Setup 2=Maximal Assistance 6=Modified Tr[place] 3=Moderate Assistance 7=Complete Troutman Therapy Quality Codes: 6 Independent with activity with or without an assistive device 5 Patient requires set up or clean up by helper. Patient completes activity by themselves 4 Supervision or touching assist (CGA). [place] provide cues , steadying assist 3 The helper provides less than half the effort to complete the activity 2 The helper provides more than half the effort to complete the activity 1 Dependent. The helper does all the effort to complete an activity 7 Patient refused to complete or attempt activity 9 The patient did not perform the activity before the current illness or injury 88 Not attempted due to Medical conditions or safety concerns Functional Abilities and Goals: Independent: Patient completed the activities by him/herself, with or without an assistive device, with no assistance from a helper. Needed Some Help: Patient needed partial assistance from another person to complete activities. Dependent: A helper completed the activities for the patient. Unknown: Not Applicable: Bed Mobility: 1 Transfers (B,C,W/C) (FIM): 1 Indoor Mobility (Ambulation): Not [place] Prior Devices Use: Manual wheelchair PT Evaluation-Current Subjective Patient agrees to up in recliner. RN present. Objective Patient Orientation: Confused Problem Solving: Poor Attachments: Oxygen, Hand Catheter ROM/Strength ROM Lower Extremities bilateral LE WFL Strength Lower Extremities left LE 1/5 grossly/right LE 3-/5 grossly Integumentary/Posture Integumentary refer to nursing notes Bladder Incontinence: Hand Cath Posture extension posture Neuromuscular (Tone, Coordination, Reflexes) extension tone with any movement bilateral LE Sensory Vision: Functional Hearing: Impaired Sensation Right Lower Extremit: Impaired Sensation Left Lower Extremity: Impaired Transfers Therapy Code Descriptions/Definitions Functional Troutman Measure: 0=Not Assessed/NA 4=Minimal Assistance 1=Total Assistance 5=Supervision or Setup 2=Maximal Assistance 6=Modified Tr[place]man 3=Moderate Assistance 7=Complete [place] Transfers (B, C, W/C) (FIM): 1 Scootin Supine to/from Sit: 1 Sit to/from Stand: 1 bed t/f WC(FIM only if WC use): 1 dependent assist x 3 with patient in severe retropulsion and demonstrates extension tone bilateral LE with sit to stand and SPT bed to recliner/PT recommends sit to stand lift for safe transfers Gait Mode of Locomotion: Wheelchair Anticipated Mode of Locomotion: Wheelchair Balance Sitting Static: Poor Sitting Dynamic: Poor Standing Static: Poor Standing Dynamic: Poor Assessment/Needs 73 y.o. male will be seen short term by skilled PT to address functional transfers to return to MI at maximum LOF. Rehab Potential: Poor PT Short Term Goals Short Term Goals Time Frame: Nov 30, 2018 Transfers (B,C,W/C) (FIM): 2 PT Plan Problem List Problem List: Activity Tolerance, Functional Strength, Safety, Balance, Transfer, Bed Mobility Treatment/Plan Treatment Plan: Continue Plan of Care Treatment Plan: Bed Mobility, Education, Functional Activity Rosa Maria, Functional Strength, Safety, Therapeutic Exercise, Transfers Treatment Duration: Nov 30, 2018 Frequency: 5 times per week Estimated Hrs Per Day: .25 hour per day Patient and/or Family Agrees t: Yes Discharge Recommendations Therapy D/C Recommendations: Alf Placement, Long Term (TCU/NH) Time/GCodes Time In: 1020 Time Out: 1039 Total Billed Treatment Time: 19 Total Billed Treatment 1 visit EVModC 19 min JARET SMITH PT Nov 22, 2018 11:39
--- NOTE | 2018-11-22 14:44 | Cardiology Progress Note ---
Cardiology SOAP Progress Note Subjective: no further chest pain. Objective: I&O/Vital Signs 11/22/18 11/22/18 11/22/18 11/22/18 04:00 04:17 04:18 06:53 Temp 97.4 Pulse 69 69 Resp 17 17 B/P (MAP) 96/53 (67) Pulse Ox 89 94 O2 Delivery NIV Bilevel NIV Bilevel O2 Flow Rate 50.00 40.00 FiO2 40 11/22/18 11/22/18 11/22/18 11/22/18 07:00 07:00 08:00 09:00 Temp 97.6 Pulse 62 70 Resp 12 B/P (MAP) 99/58 (72) Pulse Ox 92 O2 Delivery NIV Bilevel Nasal Cannula Nasal Cannula O2 Flow Rate 40.00 2.00 2.00 11/22/18 11/22/18 10:54 14:05 Pulse Ox 91 91 O2 Delivery Nasal Cannula Nasal Cannula O2 Flow Rate 5.00 3.00 11/22/18 00:00 Intake Total 280 ml Output Total 800 ml Balance -520 ml Weight (Pounds): 294 Weight (Ounces): 2.0 Weight (Calculated Kilograms): 133.845141 Constitutional: appears stated age, AAO x 3; No apparent distress; well- developed, well-nourished Respiratory: No accessory muscle use, No respiratory distress, No chest tender, No chest expansion is symmetric; chest is bilaterally symmetric; No lungs clear to percussion; lungs clear to auscultation; No crackles, No rhonchi, No rales, No stridor, No wheezing, No pleural rub, No other Cardiovascular: regular rate-rhythm; No irregularly irregular, No extra beats, No parasternal heave is noted, No JVD, No edema, No bradycardia, No tachycardia, No point of maximal impulse, No cardiac thrills are palpable; S1 and S2; No gallop/S3, No gallop/S4, No diastolic murmur, No systolic murmur, No friction rub, No click, No other Gastrointestional: No tender, No soft, No round, No distended, No pulsatile mass, No organomegaly, No guarding, No rebound, No tenderness, No hernia, No mass, No audible bowel sounds, No abnormal bowel sounds, No abdominal bruits, No spleenomegaly, No other Extremities: No normal range of motion, No non-tender, No normal inspection, No pedal edema, No calf tenderness, No normal capillary refill, No pelvis stable, No calf tenderness, No inflammation, No pedal edema, No slow capillary refill, No swelling, No other, No abrasion, No clubbing, No cyanosis, No ecchymosis, No laceration, No no lower extremity edema bilateral, No significant edema, No tenderness, No wound Neurologic/Psychiatric: no motor/sensory deficits, alert, normal mood/affect, oriented x 3, power is 5/5 both on sides Skin: No rash, No ulcerations Results/Procedures: Labs Laboratory Tests 11/21/18 16:27: Glucometer 376H 11/21/18 18:11: Glucometer 288H 11/22/18 01:17: Glucometer 315H 11/22/18 03:17: White Blood Count 13.5H, Red Blood Count 4.16L, Hemoglobin 11.8L, Hematocrit 38L , Mean Corpuscular Volume 90, Mean Corpuscular Hemoglobin 28, Mean Corpuscular Hemoglobin Concent 32, Red Cell Distribution Width 14.8H, Platelet Count 287, Mean Platelet Volume 10.9H, Neutrophils (%) (Auto) 81H, Lymphocytes (%) (Auto) 16, Monocytes (%) (Auto) 3, Eosinophils (%) (Auto) 0, Basophils (%) (Auto) 0, Neutrophils # (Auto) 10.9H, Lymphocytes # (Auto) 2.2, Monocytes # (Auto) 0.4, Eosinophils # (Auto) 0.0, Basophils # (Auto) 0.0, Sodium Level 138, Potassium Level 4.6, Chloride Level 102, Carbon Dioxide Level 26, Anion Gap 10, Blood Urea Nitrogen 34H, Creatinine 1.92H, Estimat Glomerular Filtration Rate 35, BUN/Creatinine Ratio 18, Glucose Level 296H, Calcium Level 8.9, Corrected Calcium 9.5, Total Bilirubin 0.3, Aspartate Amino Transf (AST/SGOT) 16, Alanine Aminotransferase (ALT/SGPT) 26, Alkaline Phosphatase 98, Total Protein 6.3L, Albumin 3.3, Triglycerides Level 80, Cholesterol Level 225H, LDL Cholesterol Direct 176H, VLDL Cholesterol 16, HDL Cholesterol 38L 11/22/18 10:49: Glucometer 287H A/P: Assessment/Dx: non-STEMI, History of CAD, PCI, CABG, Hypertension, Hyperlipidemia, PAD, Chronic kidney disease. Plan: non-STEMI, request echocardiogram. I will consider coronary angiography tomorrow, 11/23/2018. History of CAD, PCI, CABG,previous history of PCI to LAD. In 2011 occluded LAD stent. CABG. Hypertension,Continue carvedilol. Hyperlipidemia, patient started on Lipitor. PAD, previous history of below the knee intervention by Dr. Sneed in 2014. Chronic kidney disease, stage 3/4. Thank you for your consultation. Please call me if you have any questions. Alyssa Luciano MD, FACP, FACC, FSCAI, FHRS, CCDS Interventional Cardiology Cardiac Electrophysiology Vascular Medicine and Endovascular Interventions Grace LUCIANO MD Nov 22, 2018 14:44
--- NOTE | 2018-11-22 15:40 | Occupational Therapy Eval ---
OT Evaluation-General/PLF Medical Diagnosis Admission Date Nov 21, 2018 at 03:58 Medical Diagnosis: NStemi/COPD exacerbation Onset Date: Nov 21, 2018 Therapy Diagnosis Therapy Diagnosis: impaired ADLs and mobility Height/Weight Height (Feet): 6 Height (Inches): 2.00 Weight (Pounds): 294 Weight (Ounces): 2.0 Precautions Precautions/Isolations: Contact Isolation, Fall Prevention Weight Bear Status Weight Bearing Restriction: Weight Bearing/Tolerated Referral Physician: Lisha Referral Reason: Activity Tolerance, Self Care, Evaluation/Treatment, S trengthening/ROM Medical History Pertinent Medical History: Atrial Fib, CABG, CAD, CVA (left hemiparesis), DM, Dementia, HTN, Neuropathy, PVD, Renal Insufficiency, Smoking Current History HPI: This is a 73yoWM NH patient who presents to the ICU after complaints of chest pain, dyspnea and desaturation at intermediate. Patient was found to have volume overload with elevated troponin along with chronic renal failure further complicating diuresis. He suffered a catastrophic CVA 3 years ago and resides in a NH since that time. Patient currently is unable to tell me any significant d etails. He was just DC from [facility] for renal failure." Reviewed History: Yes Social History Home: Prison ADL-Prior Level of Function Therapy Code Descriptions/Definitions Functional Mathews Measure: 0=Not Assessed/NA 4=Minimal Assistance 1=Total Assistance 5=Supervision or Setup 2=Maximal Assistance 6=Modified Mathews 3=Moderate Assistance 7=Complete Mathews Therapy Quality Codes: 6 Independent with activity with or without an assistive device 5 Patient requires set up or clean up by helper. Patient completes activity by themselves 4 Supervision or touching assist (CGA). [place] provide cues , steadying assist 3 The helper provides less than half the effort to complete the activity 2 The helper provides more than half the effort to complete the activity 1 Dependent. The helper does all the effort to complete an activity 7 Patient refused to complete or attempt activity 9 The patient did not perform the activity before the current illness or injury 88 Not attempted due to Medical conditions or safety concerns Functional Abilities and Goals: Independent: Patient completed the activities by him/herself, with or without an assistive device, with no assistance from a helper. Needed Some Help: Patient needed partial assistance from another person to complete activities. Dependent: A helper completed the activities for the patient. Unknown: Not Applicable: ADL PLOF Comments pt DEP/ alba lift PLOF at intermediate for all transfers. per pt pt was bale to perform eating, UB bating, and grooming with s/u and required TA for all other tasks. Self Care: Needed Some Help Functional Cognition: Needed Some Help Drive Self: No OT Current Status Subjective pt laying in bed upon OT arrival in no apparent distress. pt agreed to OT evaluation session. pt c/o no pain. Pain Numeric Pain Scale: 0-No Pain Mental Status/Objective Patient Orientation: Person, Time Attachments: Hand Catheter, IV, Telemetry Current Glasses/Contacts: Yes Hearing Aids: No Dentures/Partials: No Hand Dominance: Right Upper Extremity ROM noted increase tone in LUE. pt does demo left shoulder shrug, shoulder flex to approx 10 degrees Left elbow flexion approx 60 degrees left wrist flexion/ ext 10 degrees RUE WFL Upper Extremity Coordination finger to nose decrease decrease ability to perform opposition Upper Extremity Sensation LUE no sensation to light touch. RUE WFL Upper Extremity Strength LUE2-/5 MMT RUE 4-/5 MMT Edema: noted edema in LUE including tone ADL-Treatment Therapy Code Descriptions/Definitions Functional Mathews Measure: 0=Not Assessed/NA 4=Minimal Assistance 1=Total Assistance 5=Supervision or Setup 2=Maximal Assistance 6=Modified Mathews 3=Moderate Assistance 7=Complete Mathews Therapy Quality Codes: 6 Independent with activity with or without an assistive device 5 Patient requires set up or clean up by helper. Patient completes activity by themselves 4 Supervision or touching assist (CGA). [place] provide cues , steadying assist 3 The helper provides less than half the effort to complete the activity 2 The helper provides more than half the effort to complete the activity 1 Dependent. The helper does all the effort to complete an activity 7 Patient refused to complete or attempt activity 9 The patient did not perform the activity before the current illness or injury 88 Not attempted due to Medical conditions or safety concerns pt correctly dependent for all ADLs and functional transfers OT Short Term Goals Short Term Goals Eating(FIM): 4 Grooming(FIM): 4 Transfers (B,C,W/C) (FIM): 2 1=Demonstrate adherence to instructed precautions during ADL tasks. 2=Patient will verbalize/demonstrate understanding of assistive devices/modifications for ADL. 3=Patient will improve strength/tolerance for activity to enable patient to perform ADL's. OT Respiratory Manager Goals Respiratory Manager Goals Time Frame: Dec 06, 2018 Eating (FIM): 5 Grooming(FIM): 5 Bathing(FIM): 5 (UB only) Bathing Location: L Arm, R Arm, Chest, Abdomen 1=Demonstrate adherence to instructed precautions during ADL tasks. 2=Patient will verbalize/demonstrate understanding of assistive devices/modifications for ADL. 3=Patient will improve strength/tolerance for activity to enable patient to perform ADL's. OT Education/Plan Problem List/Assessment Assessment: Decreased Activ Tolerance, Decreased Safety Aware, Decreased UE Strength, Dependent Transfers, Impaired Bed Mobility, Impaired Cognition, Impaired Coordination, Impaired Funct Balance, Impaired I ADL's, Impaired Self- Care Skills, Restricted Funct UE ROM pt presents with functional limitations affecting areas of ADLS and functional transfers with deficits in the above mention. pt would benefit from OT services to increase independence with ADLs with grooming, eating, and UB bathing. Discharge Recommendations Plan/Recommendations: Continue POC Treatment Plan/Plan of Care Treatment,Training & Education: Yes Patient would benefit from OT for education, treatment and training to promote independence in ADL's, mobility, safety and/or upper extremity function for ADL's. Plan of Care: ADL Retraining, Group Exercise/Act as Ind, UE Funct Exercise/Act Treatment Duration: Dec 06, 2018 Frequency: 3 times per week Estimated Hrs Per Day: .25 hour per day Agreement: Yes Rehab Potential: Guarded Time/GCodes Start Time: 13:20 Stop Time: 13:35 Billed Treatment Time EVM 15 minutes AUGUSTUS MURRELL OT Nov 22, 2018 15:40
--- NOTE | 2018-11-22 15:55 | NUR ---
TRANSFERRED FROM ICU TO ROOM 428. ALERT AND COOPERATIVE. SKIN W/D. RESP. SHALLOW AND SOA AT REST. PT. STATES " I'M ALWAYS THIS WAY." O2 ON AT 3 L PER MIN. PER N/C. DEEP BREATHING ENCOURAGED. CERDA CATH WITH CLEAR YELLOW URINE NOTED. LUNGS DIM. NICK. ABD. DISTENDED AND FIRM. DENIES PAIN. SL. EDEMA TO LOWER EXT. SCD'S ON. LEFT ARM WITH VERY LITTLE MOVEMENT. LEFT HAND CONTRACTED AND STIFF. LEFT LEG WITH SEVERE WEAKNESS AND STIFFNESS NOTED. GOOD HAND SYSTEMS SPEC WITH RIGHT HAND. MOVING RIGHT LEG WELL. ALERT AND ORIENTED X 3.
[2018-11-22] MEDS: SALINE NASAL SPRAY (OCEAN) 45 ML BTL SCH (20:00)
[2018-11-22] MEDS: MELATONIN 3 MG TABLET PO SCH (20:00)
[2018-11-22] MEDS ORDERED: ATORVASTATIN 40 MG (LIPITOR) TABLET PO SCH (21:00)
[2018-11-22] MEDS ORDERED: ATORVASTATIN 80 MG (LIPITOR) TABLET PO SCH (21:00)
[2018-11-23 00:51] VITALS: BP 110/57
[2018-11-23] MEDS: RT-ALBUTEROL/IPRATROPIUM 3 ML (DUONEB) VIAL IH SCH ×2 (02:34→07:12)
[2018-11-23] MEDS: methylPREDNISolone 40 MG/ML (Solu-MEDROL) VIAL IV SCH ×2 (03:55→09:18)
[2018-11-23 04:00] VITALS: BP 122/71
[2018-11-23] MEDS: LEVOTHYROXINE 100 MCG (LEVOTHROID) TAB PO SCH (05:55)
[2018-11-23] MEDS: inSUlin ASPART (NovoLOG) 1 UNIT/0.01 ML (CHARGE PER UNIT) SC SCH ×4 (06:27→12:07)
[2018-11-23 06:50] LABS: BASOPHILS % (AUTO) 0 % (0-10); EOSINOPHILS % (AUTO) 0 % (0-10); HEMATOCRIT 40 % (40-54); HEMOGLOBIN 12.4 G/DL (13.3-17.7); LYMPHOCYTES # (AUTO) 1.8 X 10^3 (1.0-4.0); LYMPHOCYTES % (AUTO) 11 % (12-44); MEAN CORPUSCULAR HEMOGLOBIN 28 PG (25-34); MEAN CORPUSCULAR HGB CONC 31 G/DL (32-36); MEAN CORPUSCULAR VOLUME 92 FL (80-99); MEAN PLATELET VOLUME 10.9 FL (7.4-10.4); MONOCYTES # (AUTO) 0.3 X 10^3 (0.0-1.0); MONOCYTES % (AUTO) 2 % (0-12); NEUTROPHILS # (AUTO) 14.7 X 10^3 (1.8-7.8); NEUTROPHILS % (AUTO) 87 % (42-75); PLATELET COUNT 238 10^3/uL (130-400); WHITE BLOOD COUNT 16.8 10^3/uL (4.3-11.0)
[2018-11-23 07:15] LABS: ALBUMIN 3.3 GM/DL (3.2-4.5); BILIRUBIN,TOTAL 0.3 MG/DL (0.1-1.0); CALCIUM 8.7 MG/DL (8.5-10.1); CREATININE SERUM 2.15 MG/DL (0.60-1.30); POTASSIUM 5.4 MMOL/L (3.6-5.0); TOTAL PROTEIN 6.3 GM/DL (6.4-8.2)
--- NOTE | 2018-11-23 07:31 | Pulmonary Progress Note ---
Subjective Time Seen by a Provider: 08:20 Subjective/Events-last exam PT appears to be doing better. Sepsis Event Evaluation Height, Weight, BMI Height: 6'2.00" Weight: 293lbs. 2.0oz. 132.924352fh; 37.9 BMI Method:Stated Exam Exam Vital Signs Date Time Temp Pulse Resp B/P (MAP) Pulse Ox O2 Delivery O2 Flow Rate FiO2 11/23/18 07:13 92 Nasal Cannula 3.00 11/23/18 07:00 66 11/23/18 04:00 97.8 67 20 122/71 (88) 99 Nasal Cannula 2.50 11/23/18 02:34 75 13 97 40.00 11/23/18 00:51 97.8 69 20 110/57 (74) 96 2.50 11/23/18 00:50 67 22 92 40.00 11/23/18 00:49 68 11/22/18 22:26 72 14 98 40.00 11/22/18 21:47 Nasal Cannula 3.00 11/22/18 19:50 97.5 78 20 113/72 (86) 93 Nasal Cannula 2.50 11/22/18 19:31 92 Nasal Cannula 3.00 11/22/18 19:00 75 11/22/18 16:00 95 Nasal Cannula 3.00 11/22/18 15:55 97.4 71 22 117/76 (90) 96 Nasal Cannula 3.00 11/22/18 14:05 91 Nasal Cannula 3.00 11/22/18 12:00 Nasal Cannula 2.00 11/22/18 12:00 96.7 68 20 115/71 (86) 94 Nasal Cannula 3.00 11/22/18 10:54 91 Nasal Cannula 5.00 11/22/18 09:00 Nasal Cannula 2.00 11/22/18 08:00 Nasal Cannula 2.00 I & O 11/23/18 07:00 Intake Total 580 ml Output Total 950 ml Balance -370 ml Height & Weight Height: 6'2.00" Weight: 293lbs. 2.0oz. 132.732461pn; 37.9 BMI Method:Stated General Appearance: No Apparent Distress, WD/WN, Chronically ill, Obese HEENT: PERRL/EOMI, Normal ENT Inspection, Pharynx Normal, Moist Mucous Membranes Neck: Full Range of Motion, Normal Inspection, Non Tender Respiratory: Chest Non Tender, Lungs Clear, No Accessory Muscle Use, No Respiratory Distress, Decreased Breath Sounds Cardiovascular: Regular Rate, Rhythm, No Edema, No Gallop, No JVD, No Murmur, Normal Peripheral Pulses Capillary Refill: Less Than 3 Seconds Gastrointestinal: normal bowel sounds, soft Extremity: Normal Capillary Refill, Normal Inspection, Normal Range of Motion, Non Tender, No Calf Tenderness, No Pedal Edema Neurologic/Psychiatric: Alert, No Motor/Sensory Deficits, Normal Mood/Affect, Disoriented, Motor Weakness Skin: Normal Color, Warm/Dry Lymphatic: No Adenopathy Results Lab Laboratory Tests 11/22/18 03:17 11/23/18 06:33 Assessment/Plan Assessment/Plan COPDAE BIPAP QHS and PRN -Solumedrol -PT is a DNR. -SVNs Leukocytosis -Secondary to steroids Pulmonary edema with hypoxia -oxygen -Lasix SUSHIL -Will use BiPAP at night Obesity with OHS -BiPAP at night CP with NSTEMI -Cardiology following Debility -PT/OT CAD Renal failure -Monitor CVA with left sided weakness hx CONNER AWAN DO Nov 23, 2018 07:31
[2018-11-23] MEDS ORDERED: LIDOCAINE 1% INJ 20 ML 20 ML VIAL ONE (07:38)
[2018-11-23] MEDS ORDERED: HEParin (CATH LAB) 2,000 ML IV ONE (07:38)
[2018-11-23 08:23] VITALS: BP 117/73
[2018-11-23] MEDS: FUROSEMIDE 40 MG/4 ML INJ (LASIX) IVP SCH (08:50)
[2018-11-23] MEDS: CALCIUM CARBONATE 500 MG (TUMS) TAB.CHEW PO SCH (09:16)
[2018-11-23] MEDS: VENlafaxine 75 MG (EFFEXOR) TAB PO SCH (09:17)
[2018-11-23] MEDS: GABAPENTIN 600 MG (NEURONTIN) TAB PO SCH ×2 (09:17→13:31)
[2018-11-23] MEDS: busPIRone 15 MG (BUSPAR) TABLET PO SCH (09:17)
[2018-11-23] MEDS: meTOprolol SUCCINATE 100 MG (TOPROL XL) TAB PO SCH (09:17)
[2018-11-23] MEDS: FAMOTIDINE 20 MG (PEPCID) TABLET PO SCH (09:17)
[2018-11-23] MEDS: DIVALPROX SPRINKLE 125 MG (DEPAKOTE) CAP PO SCH ×2 (09:17→13:31)
[2018-11-23] MEDS: APIXABAN 5 MG (ELIQUIS) TABLET PO SCH (09:17)
[2018-11-23] MEDS: ASPIRIN E.C. 81 MG (ECOTRIN) TAB PO SCH (09:17)
[2018-11-23] MEDS: LORATADINE (CLARITIN) 10 MG TAB PO SCH (09:18)
[2018-11-23] MEDS: MULTIVIT W/MINERALS TAB (THERAGRAN M) PO SCH (09:18)
[2018-11-23] MEDS: CARVEDILOL 6.25 MG (COREG) TAB PO SCH (09:18)
[2018-11-23] MEDS: VITAMIN D3 1,000 UNITS (CHOLECALCIFEROL) TABLET PO SCH (09:18)
--- NOTE | 2018-11-23 09:40 | NUR ---
NOTE THAT DR RODRIGUEZ WAS ON FLOOR AND TALKED TO PT -- PT ALSO VERBALIZED TO THIS RN HE WS REFUSING THE HEART CATH AND REFUSED AND DIALYSIS -- DR RODRIGUEZ VOICED TO GO AHEAD AND FEED PT -- ORDER IN AND TRAY WAS ORDERED
--- NOTE | 2018-11-23 09:54 | Occupational Ther Daily Note ---
OT Current Status-Daily Note Subjective pt laying in bed upon OT arrival and breakfast has arrival. pt reports no pain. pt agreed to OT TX session with focus on increase independence with ADLs Mental Status/Objective Patient Orientation: Person Therapy Code Descriptions/Definitions Functional [place] Measure: 0=Not Assessed/NA 4=Minimal Assistance 1=Total Assistance 5=Supervision or Setup 2=Maximal Assistance 6=Modified [place] 3=Moderate Assistance 7=Complete [place] Attachments: SCD's ADL-Treatment Eating (FIM): 5 (reuqired increase timing to open container. pt required cuing to use LUE for assist. ) Grooming (FIM): 4 (wash face, wash hands. required cuing to use LUE. REUQIRED assist with extenting Ldigits for wash it) Bathing (FIM): 4 (3/4 body parts. pt requred assist to was RUE secodna to decrease ROM an dincrease tone in LUE. pt education on skilled techniques. more education will be needed. ) Bathing Location: R Arm, Chest, Abdomen Education OT Patient Education: Modified ADL techniques, Progress toward Goal/Update tx plan, Purpose of tx/functional activities, Safety issues Teaching Recipient: Patient Teaching Methods: Demonstration, Discussion Response to Teaching: Verbalize Understanding, Return Demonstration OT Short Term Goals Short Term Goals Eating(FIM): 4 Grooming(FIM): 4 Transfers (B,C,W/C) (FIM): 2 1=Demonstrate adherence to instructed precautions during ADL tasks. 2=Patient will verbalize/demonstrate understanding of assistive devices/modifications for ADL. 3=Patient will improve strength/tolerance for activity to enable patient to p erform ADL's. OT Grain Processor Goals Grain Processor Goals Time Frame: Dec 06, 2018 Eating (FIM): 5 (MET ) Grooming(FIM): 5 Bathing(FIM): 5 (UB only) Bathing Location: L Arm, R Arm, Chest, Abdomen Additional Goals: 1-Demonstrate ADL Tasks, 2-Verbalize Understanding, 3- ImproveStrength/[place] 1=Demonstrate adherence to instructed precautions during ADL tasks. 2=Patient will verbalize/demonstrate understanding of assistive devices/modifications for ADL. 3=Patient will improve strength/tolerance for activity to enable patient to perform ADL's. OT Education/Plan Problem List/Assessment Assessment: Decreased Activ Tolerance, Decreased Safety Aware, Decreased UE Strength, Dependent Transfers, Impaired Bed Mobility, Impaired Cognition, Impaired Coordination, Impaired Funct Balance, Impaired I ADL's, Impaired Self- Care Skills, Restricted Funct UE ROM pt presents with functional limitations affecting areas of ADLS and functional transfers with deficits in the above mention. pt would benefit from OT services to increase independence with ADLs with grooming, eating, and UB bathing. Discharge Recommendations Plan/Recommendations: Continue POC Treatment Plan/Plan of Care Treatment,Training & Education: Yes Patient would benefit from OT for education, treatment and training to promote independence in ADL's, mobility, safety and/or upper extremity function for ADL's. Plan of Care: ADL Retraining, Group Exercise/Act as Ind, UE Funct Exercise/Act Treatment Duration: Dec 06, 2018 Frequency: 3 times per week Estimated Hrs Per Day: .25 hour per day Agreement: Yes Rehab Potential: Guarded Time/GCodes Start Time: 09:45 Stop Time: 10:00 Billed Treatment Time ADL 15 minutes, 1 unit AUGUSTUS MURRELL OT Nov 23, 2018 09:54
--- NOTE | 2018-11-23 09:58 | Physical Therapy Progress Note ---
Therapy Progress Note Patient declined PT and all other medical interventions. PT to dismiss patient from services at this time. 1 ref/dc JARET SMITH PT Nov 23, 2018 09:58
[2018-11-23] MEDS ORDERED: ATOR40TA PO ×2 (10:03)
[2018-11-23] MEDS ORDERED: METO-395 PO ×2 (10:03)
[2018-11-23] MEDS ORDERED: PRED10TA22 PO ×2 (10:03)
--- NOTE | 2018-11-23 10:05 | Discharge Summary ---
Diagnosis/Chief Complaint Date of Admission Nov 21, 2018 at 03:58 Date of Discharge Discharge Date: Nov 23, 2018 Admission Diagnosis Assessment: NSTEMI Chest pain ARF on CRI CVA w/left sided weakness DM HTN HLP SUSHIL Plan: Appreciate Cardiology DNR Poor prognosis given NH placement permanently Discharge Diagnosis (1) NSTEMI (non-ST elevated myocardial infarction) Status: Acute (2) COPD exacerbation Status: Acute (3) Acute on chronic respiratory failure Status: Acute (4) ASVD (arteriosclerotic vascular disease) Status: Acute (5) Chronic kidney disease Status: Acute (6) Acute on chronic renal failure Status: Acute (7) Elevated troponin Status: Acute (8) Paroxysmal atrial fibrillation Status: Acute Discharge Summary Discharge Physical Exam Allergies: Coded Allergies: morphine (Verified Adverse Reaction, Intermediate, psychosis, 09/12/12) Vitals & I&Os Vital Signs Date Time Temp Pulse Resp B/P (MAP) Pulse Ox O2 Delivery O2 Flow Rate FiO2 11/23/18 09:00 Nasal Cannula 3.00 11/23/18 08:23 96.4 73 20 117/73 (88) 95 11/22/18 04:18 40 General Appearance: No Apparent Distress, WD/WN, Chronically ill Respiratory: Chest Non Tender, Lungs Clear, Normal Breath Sounds, No Accessory Muscle Use, No Respiratory Distress Cardiovascular: Regular Rate, Rhythm, No Edema, No Gallop, No JVD, No Murmur, Normal Peripheral Pulses Neurologic/Psychiatric: Alert, Oriented x3 Hospital Course Was the Problem List Reviewed?: Yes Hospital course: Patient had a short hospital course after he was admitted for shortness of breath found to have an elevated troponin consistent with non-ST elevation OR so Pulmonology and cardiology were consulted initiated diuresis with good results with return of normal saturation of oxygen. Patient stabilized creatinine was monitor closely due to diuresis. Cardiology was consulted patient would not be able to undergo any type of cardiac catheterization procedure without the risk of hemodialysis and patient does not wish to proceed on with hemodialysis so I spoke with Dr. Pham his primary care provider who agreed to talk to him about hospice at next visit next week patient was deemed stable for discharge back to [facility] but prognosis is very poor overall due to significant comorbidities, renal failure and chronic debilitated state requiring prison placement permanently. Labs (last 24 hrs) Laboratory Tests 11/22/18 16:06: Glucometer 332H 11/22/18 20:44: Glucometer 362H 11/23/18 01:14: Glucometer 216H 11/23/18 06:33: White Blood Count 16.8H, Red Blood Count 4.36, Hemoglobin 12.4L, Hematocrit 40, Mean Corpuscular Volume 92, Mean Corpuscular Hemoglobin 28, Mean Corpuscular Hemoglobin Concent 31L, Red Cell Distribution Width 15.0H, Platelet Count 238, Mean Platelet Volume 10.9H, Neutrophils (%) (Auto) 87H, Lymphocytes (%) (Auto) 11L, Monocytes (%) (Auto) 2, Eosinophils (%) (Auto) 0, Basophils (%) (Auto) 0, Neutrophils # (Auto) 14.7H, Lymphocytes # (Auto) 1.8, Monocytes # (Auto) 0.3, Eosinophils # (Auto) 0.0, Basophils # (Auto) 0.0, Sodium Level 139, Potassium Level 5.4H, Chloride Level 105, Carbon Dioxide Level 19L, Anion Gap 15H, Blood Urea Nitrogen 52H, Creatinine 2.15H, Estimat Glomerular Filtration Rate 30, BUN/Creatinine Ratio 24, Glucose Level 236H, Calcium Level 8.7, Corrected Calcium 9.3, Total Bilirubin 0.3, Aspartate Amino Transf (AST/SGOT) 33, Alanine Aminotransferase (ALT/SGPT) 44, Alkaline Phosphatase 91, Total Protein 6.3L, Albumin 3.3 11/23/18 11:12: Glucometer 336H Patient resulted labs reviewed. Pending Labs Laboratory Tests 11/23/18 06:33: White Blood Count 16.8, Red Blood Count 4.36, Hemoglobin 12.4, Hematocrit 40, Mean Corpuscular Volume 92, Mean Corpuscular Hemoglobin 28, Mean Corpuscular Hemoglobin Concent 31, Red Cell Distribution Width 15.0, Platelet Count 238, Mean Platelet Volume 10.9, Neutrophils (%) (Auto) 87, Lymphocytes (%) (Auto) 11, Monocytes (%) (Auto) 2, Eosinophils (%) (Auto) 0, Basophils (%) (Auto) 0, Neutrophils # (Auto) 14.7, Lymphocytes # (Auto) 1.8, Monocytes # (Auto) 0.3, Eosinophils # (Auto) 0.0, Basophils # (Auto) 0.0, Sodium Level 139, Potassium Level 5.4, Chloride Level 105, Carbon Dioxide Level 19, Anion Gap 15, Blood Urea Nitrogen 52, Creatinine 2.15, Estimat Glomerular Filtration Rate 30, BUN/Creatinine Ratio 24, Glucose Level 236, Calcium Level 8.7, Corrected Calcium 9.3, Total Bilirubin 0.3, Aspartate Amino Transf (AST/SGOT) 33, Alanine Aminotransferase (ALT/SGPT) 44, Alkaline Phosphatase 91, Total Protein 6.3, Albumin 3.3 11/23/18 11:12: Glucometer 336 Discussion & Recommendations Discharge Planning: <30 minutes discharge planning Discharge Home Medications: Active Scripts Active Prednisone 10 Mg Tab.ds.pk 40 Mg PO DAILY 3 Days Metoprolol Succinate 100 Mg Tab.er.24h 100 Mg PO DAILY Lipitor (Atorvastatin Calcium) 40 Mg Tablet 40 Mg PO HS Reported Lactulose 20 Gm/30 Ml Solution 30 Ml PO Q12H PRN [place] Saline (Sodium Chloride) 50 Ml [place] 2 Sprays NS HS Anefrin (Oxymetazoline HCl) 30 Ml [place] 1 [place] NS Q8H PRN Calcium Carbonate 500 Mg Tablet 750 Mg PO DAILY Depakote Sprinkle (Divalproex Sodium) 125 Mg Cap 125 Mg PO TID Vitamin D (Cholecalciferol (Vitamin D3)) 1,000 Unit Tablet 2,000 Unit PO DAILY Exelon (Rivastigmine) 9.5 Mg Patch 9.5 Mg TD DAILY Loratadine 10 Mg Tablet 10 Mg PO DAILY Levothyroxine Sodium 200 Mcg Tablet 200 Mcg PO DAILY Buspirone HCl 15 Mg Tablet 15 Mg PO BID Aspir 81 (Aspirin) 81 Mg Tablet.dr 81 Mg PO DAILY Multivitamins with Minerals (Multivitamin with Minerals) 1 Each Tablet 1 Tab PO DAILY Imodium A-D (Loperamide HCl) 2 Mg Tablet PO UD PRN GIVE 2 TABS AFTER FIRST LOOSE STOOL THEN 1 TAB AFTER EACH OTHER LOOSE STOOL, MAX OF 4 PILLS PER DAY Levemir (Insulin Determir) 1,000 Units/10 Ml Soln 38 Units SQ BID Venlafaxine HCl 75 Mg Tab 75 Mg PO BID Eliquis (Apixaban) 5 Mg Tablet 5 Mg PO BID Gabapentin 300 Mg Capsule 600 Mg PO TID TAKES 2 (300MG) CAPSULES Melatonin 3 Mg Tablet 3 Mg PO HS Novolog (Insulin Aspart) 100 Unit/1 Ml Susp 10 Unit SQ TIDAC Ranitidine HCl 150 Mg Tablet 150 Mg PO DAILY Tylenol (Acetaminophen) 325 Mg Tablet 650 Mg PO Q4H PRN Instructions to patient/family Please see electronic discharge instructions given to patient. Clinical Quality Measures DVT/VTE Risk/Contraindication: Risk Factor Score Per Nursin RFS Level Per Nursing on Admit: 4+=Very High Problem Qualifiers (1) Acute on chronic respiratory failure: Respiratory failure complication: unspecified whether with hypoxia or hypercapnia Qualified Codes: J96.20 - Acute and chronic respiratory failure, unspecified whether with hypoxia or hypercapnia (2) Chronic kidney disease: Chronic kidney disease stage: stage 3 (moderate) Qualified Codes: N18.3 - Chronic kidney disease, stage 3 (moderate) (3) Acute on chronic renal failure: Acute renal failure type: unspecified Chronic kidney disease stage: stage 3 (moderate) Qualified Codes: N17.9 - Acute kidney failure, unspecified; N18.3 - Chronic kidney disease, stage 3 (moderate) JUAN MANUEL TEMPLETON DO Nov 23, 2018 10:05
--- NOTE | 2018-11-23 10:05 | Discharge Inst-Skilled Nursing ---
Discharge Inst-Skilled NF Patient Instructions Patient Problems: CHD CAD CRI DM CVA Goal: Independent ADL's Consult/Follow Up/Orders Follow Up Appt.: Dr Pham in 1 week Needs Hospice conversation Skilled NF Admit to: [facility] Certification (SNF) I certify that SNF services are required to be given on an inpatient basis because of the above named patient's need for fci care on a continuing basis for the conditions(s) for which he/she was receiving inpatient hospital services prior to his/her transfer to the SNF. Longterm Facility Order: Nursing Services, Production Estimator-Evaluate & Treat, Physical Therapy-Evaluate & Treat, Speech Language-Evaluate & Treat Oxygen Delivery Method: Nasal Cannula Discharge Diet: ADA Diet, Cardiac Diet Daily Activity as Tolerated: Yes New & Resume Previous Orders Janiya Smith Nov 23, 2018 10:04 JANIYA SMITH DO Nov 23, 2018 10:05
--- NOTE | 2018-11-23 10:34 | Diagnostic Imaging Report ---
EXAMINATION: Chest 1 view HISTORY: Shortness of breath. FINDINGS: Comparison is 11/22/2018. Median sternotomy wires are aligned. There is unchanged enlargement of the heart. There are bilateral airspace opacities in the mid and lower zones, septal line thickening most likely represents mild pulmonary edema. No pneumothorax. There are tiny bilateral pleural effusions. Overall, airspace disease is mildly worsened. IMPRESSION: 1. Worsening moderate pulmonary edema. Dictated by: Dictated on workstation # [id number]
--- NOTE | 2018-11-23 11:21 | NUR ---
CM/SS discharge information sent to [facility] They will transport the patient back to facility this day around 1330. RNing updated.
--- NOTE | 2018-11-23 12:24 | Cardiology Progress Note ---
Cardiology SOAP Progress Note Subjective: No further chest pain. Still has shortness of breath. Objective: I&O/Vital Signs 11/23/18 11/23/18 11/23/18 11/23/18 00:49 00:50 00:51 02:34 Temp 97.8 Pulse 68 67 69 75 Resp 22 20 13 B/P (MAP) 110/57 (74) Pulse Ox 92 96 97 O2 Flow Rate 40.00 2.50 40.00 11/23/18 11/23/18 11/23/18 11/23/18 04:00 07:00 07:13 08:23 Temp 97.8 96.4 Pulse 67 66 73 Resp 20 20 B/P (MAP) 122/71 (88) 117/73 (88) Pulse Ox 99 92 95 O2 Delivery Nasal Cannula Nasal Cannula Nasal Cannula O2 Flow Rate 2.50 3.00 2.50 11/23/18 09:00 O2 Delivery Nasal Cannula O2 Flow Rate 3.00 11/23/18 00:00 Intake Total 580 ml Output Total 750 ml Balance -170 ml Weight (Pounds): 293 Weight (Ounces): 2.0 Weight (Calculated Kilograms): 132.047701 Constitutional: appears stated age, AAO x 3; No apparent distress; well- developed, well-nourished Respiratory: No accessory muscle use, No respiratory distress, No chest tender, No chest expansion is symmetric; chest is bilaterally symmetric; No lungs clear to percussion; lungs clear to auscultation; No crackles, No rhonchi, No rales, No stridor, No wheezing, No pleural rub, No other Cardiovascular: regular rate-rhythm; No irregularly irregular, No extra beats, No parasternal heave is noted, No JVD, No edema, No bradycardia, No tachycardia, No point of maximal impulse, No cardiac thrills are palpable; S1 and S2; No gallop/S3, No gallop/S4, No diastolic murmur, No systolic murmur, No friction rub, No click, No other Gastrointestional: No tender, No soft, No round, No distended, No pulsatile mass, No organomegaly, No guarding, No rebound, No tenderness, No hernia, No mass, No audible bowel sounds, No abnormal bowel sounds, No abdominal bruits, No spleenomegaly, No other Extremities: No normal range of motion, No non-tender, No normal inspection, No pedal edema, No calf tenderness, No normal capillary refill, No pelvis stable, No calf tenderness, No inflammation, No pedal edema, No slow capillary refill, No swelling; other (tip of toes are blackish); No abrasion, No clubbing, No cyanosis, No ecchymosis, No laceration, No no lower extremity edema bilateral, No significant edema, No tenderness, No wound Neurologic/Psychiatric: no motor/sensory deficits, alert, normal mood/affect, oriented x 3, power is 5/5 both on sides Skin: No rash, No ulcerations Results/Procedures: Labs Laboratory Tests 11/22/18 16:06: Glucometer 332H 11/22/18 20:44: Glucometer 362H 11/23/18 01:14: Glucometer 216H 11/23/18 06:33: White Blood Count 16.8H, Red Blood Count 4.36, Hemoglobin 12.4L, Hematocrit 40, Mean Corpuscular Volume 92, Mean Corpuscular Hemoglobin 28, Mean Corpuscular Hemoglobin Concent 31L, Red Cell Distribution Width 15.0H, Platelet Count 238, Mean Platelet Volume 10.9H, Neutrophils (%) (Auto) 87H, Lymphocytes (%) (Auto) 11L, Monocytes (%) (Auto) 2, Eosinophils (%) (Auto) 0, Basophils (%) (Auto) 0, Neutrophils # (Auto) 14.7H, Lymphocytes # (Auto) 1.8, Monocytes # (Auto) 0.3, Eosinophils # (Auto) 0.0, Basophils # (Auto) 0.0, Sodium Level 139, Potassium Level 5.4H, Chloride Level 105, Carbon Dioxide Level 19L, Anion Gap 15H, Blood Urea Nitrogen 52H, Creatinine 2.15H, Estimat Glomerular Filtration Rate 30, BUN/ Creatinine Ratio 24, Glucose Level 236H, Calcium Level 8.7, Corrected Calcium 9.3, Total Bilirubin 0.3, Aspartate Amino Transf (AST/SGOT) 33, Alanine Aminotransferase (ALT/SGPT) 44, Alkaline Phosphatase 91, Total Protein 6.3L, Albumin 3.3 11/23/18 11:12: Glucometer 336H A/P: Assessment/Dx: non-STEMI, History of CAD, PCI, CABG, Hypertension, Hyperlipidemia, PAD, Chronic kidney disease. Plan: non-STEMI, request echocardiogram. I discussed at length with the patient about coronary angiography and complications especially worsening renal function but the patient refused consent for coronary angiography. he understands the risk of future AL. History of CAD, PCI, CABG,previous history of PCI to LAD. In 2011 occluded LAD stent. CABG. Hypertension,Continue carvedilol. Hyperlipidemia, patient started on Lipitor. PAD, previous history of below the knee intervention by Dr. Sneed in 2014. Chronic kidney disease, stage 3/4. leukocytosis Thank you for your consultation. Please call me if you have any questions. Alyssa Luciano MD, FACP, FACC, FSCAI, FHRS, CCDS Interventional Cardiology Cardiac Electrophysiology Vascular Medicine and Endovascular Interventions Grace LUCIANO MD Nov 23, 2018 12:24
[2018-11-23 12:45] VITALS: BP 143/83
[2018-11-23 13:56] VITALS: BP 143/83
== END 2018-11-23 13:59 | DRG 280 ==
LOC: EDUNIT# 02:03 → ER 02:05 → ICU 03:58 → 4TH 11-22 15:53
PROVIDERS: ADMIT Internal Medicine; ATTEND Internal Medicine
DX: I21.4 Non-ST elevation (NSTEMI) myocardial infarction (principal); J44.1 Chronic obstructive pulmonary disease with (acute) exacerbation; J96.20 Acute and chronic respiratory failure, unspecified whether with hypoxia or hypercapnia; N17.9 Acute kidney failure, unspecified; I48.0 Paroxysmal atrial fibrillation; I12.9 Hypertensive chronic kidney disease with stage 1 through stage 4 chronic kidney disease, or unspecified chronic kidney disease; N18.3 Chronic kidney disease, stage 3 (moderate); Z66 Do not resuscitate; I69.354 Hemiplegia and hemiparesis following cerebral infarction affecting left non-dominant side; E66.2 Morbid (severe) obesity with alveolar hypoventilation; I25.10 Atherosclerotic heart disease of native coronary artery without angina pectoris; F03.90 Unspecified dementia, unspecified severity, without behavioral disturbance, psychotic disturbance, mood disturbance, and anxiety; K21.9 Gastro-esophageal reflux disease without esophagitis; K44.9 Diaphragmatic hernia without obstruction or gangrene; Z87.891 Personal history of nicotine dependence; M25.512 Pain in left shoulder; M19.90 Unspecified osteoarthritis, unspecified site; E11.51 Type 2 diabetes mellitus with diabetic peripheral angiopathy without gangrene; I73.9 Peripheral vascular disease, unspecified; E03.9 Hypothyroidism, unspecified; R13.10 Dysphagia, unspecified; F41.9 Anxiety disorder, unspecified; F32.9 Major depressive disorder, single episode, unspecified; I44.7 Left bundle-branch block, unspecified; E78.5 Hyperlipidemia, unspecified; Z68.37 Body mass index [BMI] 37.0-37.9, adult; Z91.81 History of falling; Z95.1 Presence of aortocoronary bypass graft; Z79.4 Long term (current) use of insulin
CPT/HCPCS: 36415; 71045; 80053; 80061; 80164; 82962; 83735; 83874; 83880; 84439; 84443; 84484; 85025; 85610; 85730; 86141; 93005; 93041; 93306; 94640; 94660; 96374; 96375

== ENCOUNTER 2018-11-28 11:13 | Emergency (ER) | payer MEDICARE, MEDICAID ==
[~2018-11-28] VITALS: Ht 198.1 cm; Wt 181.4 kg
[~2018-11-28 11:13] MED LIST changes: +ATOR40TA PO; +CALC-938 PO; +CALC500T3 PO; +CARV6.25 PO; +CHOL100045 PO; +DIVA125C PO; +METO-395 PO; +OXYM30SP NS; +PRED10TA22 PO; +SODI50SP NS
--- NOTE | 2018-11-28 11:15 | NUR ---
pt here by rescue from [facility]. pt choked on his dentures. pt has h/o dysphagia, cva arf, copd . pt on o2 3/n/c 05/12.dr hollins pt same time. pt is a dnr per [facility] papers. ems tx includes 20r f/a iv liter ns . 100 gone and turned off in er. monitor, o2, no drug tx, and transport. currently pt appears somewhat lethargic and weak. alert gcs 15 but moaning alot. pt denies chest and abd pain. pt appears obese and overweight including the abd. pt denies dyspnea more then usual but sounds audibly like rhonchi in the bronchi with the moaning. neg duskiness or cyanosis or accessory muscle use noted. lungs decreased aeration right side and rhonchi left side. abd w/o pain with palpation. pt has significant swelling of all ext. x 4. cant really ausc hr or radial pulse and tele applied shows a fib 115. heri hollins pt at 1130.
--- NOTE | 2018-11-28 11:26 | ED Respiratory ---
General Chief Complaint: Respiratory Problems Stated Complaint: CHOKING Source: patient, EMS, [facility] records Exam Limitations: no limitations History of Present Illness Date Seen by Provider: Nov 28, 2018 Time Seen by Provider: 11:21 Initial Comments 73-year-old male who is brought to the emergency room by [facility] for a choking episode. Staff and the patient reports that he was eating lunch when he became choked on his dentures causing him to have a hypoxic episode. He is alert and oriented on arrival to the emergency room at this time. He is in no obvious distress and reports that he is feeling much better. [facility] staff did reinforce his dentures with denture cream and he has quite a bit of white residue in his mouth. Timing/Duration: just prior to arrival Prior Episodes/Possible Cause: no prior episodes Associated Symptoms: denies symptoms Allergies and Home Medications Allergies Coded Allergies: morphine (Verified Adverse Reaction, Intermediate, psychosis, 09/12/12) Home Medications Acetaminophen 325 Mg Tablet, 650 MG PO Q4H PRN for PAIN-MILD OR TEMPATURE, (Reported) Apixaban 5 Mg Tablet, 5 MG PO BID, (Reported) Aspirin 81 Mg Tablet.dr, 81 MG PO DAILY, (Reported) Atorvastatin Calcium 40 Mg Tablet, 40 MG PO HS Prescribed by: JUAN MANUEL TEMPLETON on 11/23/18 1003 Buspirone HCl 15 Mg Tablet, 15 MG PO BID, (Reported) Calcium Carbonate 500 Mg Tablet, 750 MG PO DAILY, (Reported) Cholecalciferol (Vitamin D3) 1,000 Unit Tablet, 2,000 UNIT PO DAILY, (Reported) Divalproex Sodium 125 Mg Cap, 125 MG PO TID, (Reported) Gabapentin 300 Mg Capsule, 600 MG PO TID, (Reported) TAKES 2 (300MG) CAPSULES Insulin Aspart 100 Unit/1 Ml Susp, 10 UNIT SQ TIDAC, (Reported) Insulin Determir 1,000 Units/10 Ml Soln, 38 UNITS SQ BID, (Reported) Lactulose 20 Gm/30 Ml Solution, 30 ML PO Q12H PRN for CONSTIPATION-3RD LINE, (Reported) Levothyroxine Sodium 200 Mcg Tablet, 200 MCG PO DAILY, (Reported) Loperamide HCl 2 Mg Tablet, PO UD PRN for DIARRHEA, (Reported) GIVE 2 TABS AFTER FIRST LOOSE STOOL THEN 1 TAB AFTER EACH OTHER LOOSE STOOL, MAX OF 4 PILLS PER DAY Loratadine 10 Mg Tablet, 10 MG PO DAILY, (Reported) Melatonin 3 Mg Tablet, 3 MG PO HS, (Reported) Metoprolol Succinate 100 Mg Tab.er.24h, 100 MG PO DAILY Prescribed by: JUAN MANUEL TEMPLETON on 11/23/18 1003 Multivitamin with Minerals 1 Each Tablet, 1 TAB PO DAILY, (Reported) Oxymetazoline HCl 30 Ml Horse Shoe, 1 SPRAY NS Q8H PRN for EPISTAXIS, (Reported) Prednisone 10 Mg Tab.ds.pk, 40 MG PO DAILY Prescribed by: JUAN MANUEL TEMPLETON on 11/23/18 1003 Ranitidine HCl 150 Mg Tablet, 150 MG PO DAILY, (Reported) Rivastigmine 9.5 Mg Patch, 9.5 MG TD DAILY, (Reported) Sodium Chloride 50 Ml Horse Shoe, 2 SPRAYS NS HS, (Reported) Venlafaxine HCl 75 Mg Tab, 75 MG PO BID, (Reported) Patient Home Medication List Home Medication List Reviewed: Yes Review of Systems Review of Systems Constitutional: see HPI; No chills, No fever All Other Systems Reviewed Negative Unless Noted: Yes Past [id number]-Rwdowc-Ygpszl Hx Past Med/Social Hx: Reviewed Nursing Past Med/Soc Hx Patient Social History Type Used: Cigarettes, Pipe Former Smoker, Quit: Nov 01, 2012 2nd Hand Smoke Exposure: Yes Recent Hopitalizations: No Immunizations Up To Date Tetanus Booster (TDap): Unknown Date of Pneumonia Vaccine: Mar 15, 2012 Date of Influenza Vaccine: Feb 22, 2018 Past Medical History Surgeries: Yes Cardiac, CABG, Eye Surgery, Vascular Surgery Respiratory: Yes (PNEUMONIA WITH SEPSIS) Pneumonia, Sleep Apnea, COPD Currently Using CPAP: No Cardiac: Yes Atrial Fibrillation, Coronary Artery Disease, High Cholesterol, Hypertension, Peripheral Vascular Neurological: Yes Dementia, Neuropathy, Stroke, TIA, Vertigo Reproductive Disorders: No (unknown) Sexually Transmitted Disease: No (unknown) HIV/AIDS: No Genitourinary: Yes Kidney Infection, Bladder Infection, Kidney Stones, Renal Failure Gastrointestinal: Yes Gastroesophageal Reflux, Gastrointestinal Bleed, Hiatal Hernia, Ulcer Musculoskeletal: Yes (CHRONIC LEFT SHOULDER PAIN; IMPAIRED MOBILITY; FALLS) Arthritis Endocrine: Yes Diabetes, Insulin dep, Hypothyroidsim HEENT: Yes Cataract, Dysphagia Cancer: No Psychosocial: Yes Sleep Difficulties, Anxiety, Depression Integumentary: Yes (CELLULITIS LEFT FOOT; WOUND RIGHT POSTERIOR THIGH; LEFT ANKLE) Blood Disorders: No Adverse Reaction/Blood Tranf: No Family Medical History Reviewed Nursing Family Hx Cardiovascular disease 19 MOTHER Completed stroke 19 FATHER 19 MOTHER FH: emphysema Heart Disease, Diabetes Physical Exam Vital Signs - First Documented 11/28/18 11:15 Temp 96.9 Pulse 115 Resp 16 B/P (MAP) 113/96 (102) Pulse Ox 96 O2 Delivery Nasal Cannula O2 Flow Rate 3.00 Capillary Refill : Height: 6'2.00" Weight: 293lbs. 2.0oz. [id number]; 37.9 BMI Method:Stated General Appearance: WD/WN, no apparent distress HEENT: PERRL/EOMI, normal ENT inspection, TMs normal, pharynx normal Respiratory: chest non-tender, lungs clear, normal breath sounds, no respiratory distress, no accessory muscle use, respiratory distress Cardiovascular: normal peripheral pulses, regular rate, rhythm, no edema, no gallop, no JVD, no murmur Gastrointestinal: normal bowel sounds, non tender, soft, no organomegaly, no pulsatile mass Extremities: normal capillary refill Neurologic/Psychiatric: alert, normal mood/affect, oriented x 3 Skin: normal color, warm/dry Progress/Results/Core Measures Suspected Sepsis SIRS Temperature: Pulse: Respiratory Rate: Blood Pressure / Mean: Results/Orders My Orders Orders - ANA LAURA CHAWLA Chest 1 View, Ap/Pa Only (11/28/18 11:20) Vital Signs/I&O 11/28/18 11:15 Temp 96.9 Pulse 115 Resp 16 B/P (MAP) 113/96 (102) Pulse Ox 96 O2 Delivery Nasal Cannula O2 Flow Rate 3.00 Capillary Refill : Departure Impression Primary Impression: Choking episode Disposition: 01 HOME, SELF-CARE Condition: Stable/Unchanged Departure-Patient Inst. Decision time for Depature: 12:51 Referrals: LIU LYNN MD (PCP/Family) Primary Care Physician Patient Instructions: Choking Add. Discharge Instructions: Follow-up with your primary care provider within 1 week for recheck. Call tomorrow morning for an appointment time. Resume your home medications as previously prescribed. Return back to the emergency room for worsening symptoms or concerns as needed. All discharge instructions reviewed with patient and/or family. Voiced understanding. ANA LAURA CHAWLA Nov 28, 2018 11:26
--- NOTE | 2018-11-28 11:44 | NUR ---
no family here yet.
--- NOTE | 2018-11-28 11:53 | NUR ---
pt likes leaning to left. i placed pillow under left arm pt also requested and recieved pillow under left leg earlier. pt also has scabbed wounds left leg. bp machine is 101/86. tele now shows a flutter 06/15 138. p ox 100 3/n/c.
--- NOTE | 2018-11-28 12:05 | NUR ---
pt has dentures in place. i cleaned oralpharynx out with sponge brush. no more audible rhonchi in bronchi noted.
--- NOTE | 2018-11-28 12:29 | NUR ---
pt might be gcs 14 -15 neg 1 for occasional confusion.
--- NOTE | 2018-11-28 12:40 | Diagnostic Imaging Report ---
Indication: Aspiration Portable chest 12:28 PM There are postop changes from a median sternotomy. There is cardiomegaly with pulmonary vascular congestion and some pulmonary edema. Impression: Congestive heart failure Dictated by: Dictated on workstation # [id number]
--- NOTE | 2018-11-28 12:52 | NUR ---
pt remains here by self gcs 14 -15 neg 1 for ? occasional confusion. i asked pt about pain he said " anxiety." denies chest and abd pain. denies dyspnea and no acute sighns of dyspnea noted though resp remain shallow nonlabored. pt continues on 3/n/c o2. tele shows st vs a flutter 06/15 rate 137. armen talked to sister on the phone.
[2018-11-28 12:55] VITALS: BP 113/62
--- NOTE | 2018-11-28 13:08 | NUR ---
i called report back to [facility]. spoke with lisa. pt said he can get in w/c and care center said yes he does. care center will call me back when they find a local company flatbed truck driver to come get pt and take him back there.
--- NOTE | 2018-11-28 13:09 | NUR ---
i will give stake driver d/c papers for the care center. i did tell lisa the handtyped by dr ceballos the chart and no new scripts and x r result. i d/cd pt iv prior to d[facility]c which was from [facility].
--- NOTE | 2018-11-28 13:16 | NUR ---
pt wanted lower denture only out. i put them with the d/c instructions.
--- NOTE | 2018-11-28 13:34 | NUR ---
no call back from care center yet
--- NOTE | 2018-11-28 14:08 | NUR ---
i asked unit secretary short while ag o to call care center back for [employer] route driver
--- NOTE | 2018-11-28 14:34 | NUR ---
adjunct faculty for medical terminology said [facility] center be here shortly.
[2018-11-28 14:51] VITALS: BP 113/62
--- NOTE | 2018-11-28 14:51 | NUR ---
someone from [facility] is here to watch pt until a m48/m60 tank driver from [facility] comes gets them. i gave paperwork and dentures to her. i placed pt in w/r in w/c with o2 3/n/c continuing with the sitter from the [facility].
== END 2018-11-28 14:54 | disposition home or self-care (01) ==
LOC: EDUNIT# 11:13 → ER 11:14
DX: R09.89 Other specified symptoms and signs involving the circulatory and respiratory systems (principal); J44.9 Chronic obstructive pulmonary disease, unspecified; G47.30 Sleep apnea, unspecified; I10 Essential (primary) hypertension; E78.00 Pure hypercholesterolemia, unspecified; I25.10 Atherosclerotic heart disease of native coronary artery without angina pectoris; I48.91 Unspecified atrial fibrillation; E11.51 Type 2 diabetes mellitus with diabetic peripheral angiopathy without gangrene; E11.40 Type 2 diabetes mellitus with diabetic neuropathy, unspecified; F03.90 Unspecified dementia, unspecified severity, without behavioral disturbance, psychotic disturbance, mood disturbance, and anxiety; K21.9 Gastro-esophageal reflux disease without esophagitis; E03.9 Hypothyroidism, unspecified; F41.9 Anxiety disorder, unspecified; F32.9 Major depressive disorder, single episode, unspecified; Z87.19 Personal history of other diseases of the digestive system; Z87.442 Personal history of urinary calculi; Z86.73 Personal history of transient ischemic attack (TIA), and cerebral infarction without residual deficits; Z87.01 Personal history of pneumonia (recurrent); Z95.1 Presence of aortocoronary bypass graft; Z88.5 Allergy status to narcotic agent; Z79.82 Long term (current) use of aspirin; Z79.4 Long term (current) use of insulin; Z87.891 Personal history of nicotine dependence; Z82.49 Family history of ischemic heart disease and other diseases of the circulatory system
CPT/HCPCS: 71045